=== PATIENT | male | born 1950 | race Caucasian/White ===

== ENCOUNTER 2018-02-26 08:31 | Inpatient (IN) | payer OTHER, MEDICARE ==
[~2018-02-26] VITALS: Ht 182.9 cm; Wt 79.1 kg
[~2018-02-26 08:31] MED LIST: ALBUTEROL 3 ML3 ML INH; ATORVASTATIN CA40 MG PO; CEFAZOLIN SODIUM1 GM IV; DULOXETINE HYDR60 MG PO; FOLIC ACID 1 MG PO; KEPPRA 500MG T500 MG PO; KLOR PO; LOPRESSOR 25MG25 MG PO; LOPRESSOR50 MG PO; LORAZEPAM1 MG PO; LOVENOX 4040 MG/0.4 SC; PRILOSEC 20MG C20 MG PO; Theragran Vitamins PO; VITAMIN B-150 MG PO
[2018-02-26 08:54] LABS: ABSOLUTE BASOPHIL COUNT 0 /CUMM (0.0-0.2); ABSOLUTE EOSINOPHIL COUNT 0 /CUMM (0.0-0.7); BASOPHIL % 0.3 % (0.0-2.0); MEAN CORPUSCULAR HGB 31.6 PG (27.0-31.0)
--- NOTE | 2018-02-26 08:57 | ED AMS/SEIZURE/WEAK/DIZZY ---
History of Present Illness General Chief Complaint: Seizure Stated Complaint: JOSE MARIA,FOUND ON FLOOR UNRESPONSIVE, SEIZED IN R Source: EMS Exam Limitations: unable to give history, clinical condition Vital Signs & Intake/Output Vital Signs & Intake/Output Vital Signs Date Time Temp Pulse Resp B/P B/P Pulse O2 O2 Flow FiO2 Mean Ox Delivery Rate 03/01 0321 30 03/01 0053 30 03/01 0000 97 Ventilator 30% 03/01 0000 96.6 82 20 120/70 97 Ventilator 30% 02/28 2223 30 02/28 2000 97 Ventilator 30% / 1925 30 02/28 1625 30 02/28 1600 99 Ventilator 30% 02/28 1600 99.1 95 20 150/88 99 Ventilator 30% 02/28 1409 30 02/28 1200 97 Ventilator 30% 02/28 1200 98.7 96 20 152/100 96 Ventilator 30% 02/28 1130 30 02/28 0829 30 02/28 0800 96 Ventilator 35% 02/28 0800 97.2 91 20 124/86 96 Ventilator 35% 02/28 0611 35 ED Intake and Output 03/01 0000 02/28 1200 Intake Total 1407 750 Output Total 580 275 Balance 827 475 Intake, IV 1407 750 Number 0 0 Bowel Movements Output, Urine 580 275 Patient 202 lb Weight Weight Bed scale Measurement Method Allergies Coded Allergies: bee venom protein (honey bee) (UNKNOWN 02/26/18) Reconcile Medications Atorvastatin Calcium 40 MG TABLET 1 TAB PO DAILY CHOLESTEROL (Reported) Divalproex Sodium (Divalproex Sodium ER) 500 MG TAB.ER.24H 2 TAB PO BID SEIZURES (Reported) Duloxetine HCl 60 MG CAPSULE.DR 1 CAP PO DAILY UNKNOWN (Reported) Metoprolol Tartrate 25 MG TABLET 1 TAB PO BID HEART (Reported) Triage Note: JOSE MARIA FROM HOME, PER EMS WAS FOUND UNRESPONSIVE ON FLOOR, THEN HAD SEIZURE LIKE ACTIVITY, RESOLVED WITH VERSED 10 MG IM. UNRESPONSIVE ON ARRIVAL, WITH ORAL ARIWAY IN PLACE. RESPIRATIONS IRREGULAR, BAGGED WITH 100% 02. DR. CASTILLO AT BEDSIDE FOR EVALUATION. Triage Nurses Notes Reviewed? yes HPI: Patient presents for evaluation of unresponsiveness. According to EMS the patient was last seen by his moments before their arrival. She states that he "didn't seem right" when she left for work. EMS states the patient was unresponsive upon their arrival with signs of head injury and possible left elbow dislocation/fracture. Past History Travel History Traveled to [place] past 21 day No Medical History Any Pertinent Medical History? 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 No Review of Systems Review of Systems Constitutional: Reports: see HPI. Comments Patient unable to provide Physical Exam Physical Exam General Appearance: see below Comments: Gen.: Well-nourished, well-developed, no acute respiratory distress. Head: Normocephalic, atraumatic. Eyes: Normal inspection bilaterally Ears: Normal inspection bilaterally Nose: Normal inspection Throat/mouth : Moist mucosa Neck: Supple, full range of motion, no goiter Heart: Regular rate and rhythm, no murmurs rubs or gallops Lungs: Alternating dyspnea with tachypnea Chest: Nontender Back: Normal range of motion Abdomen: Soft, nontender, nondistended, normal bowel sounds Extremities: Normal range of motion grossly, equal radial pulses, no cyanosis clubbing or edema Neurologic: Cranial nerves grossly intact, otherwise unable to assess Skin: warm and dry Psychiatric: Unable to assess Core Measures ACS in differential dx? No CVA/TIA Diagnosis No Sepsis Present: No Sepsis Focused Exam Completed? No Progress Differential Diagnosis: arrythmia, CVA/stroke, dehydration, electrolyte imbalance, intracranial Hem., intracranial mass/tumor, seizure disorder Plan of Care: Orders Procedure Date/time Status ARTERIAL BLOOD GAS (GEN) 03/01 0500 Active XRY-PORTABLE CHEST XRAY 03/01 0500 Active ICU LAB BUNDLE 03/01 0500 Active CBC WITHOUT DIFFERENTIAL 03/01 0500 Active PARTIAL THROMBOPLASTIN TIME 03/01 0430 Active Tube Feeding 02/28 D Active Heparin Drip- AFIB/FLUTTER/PE/ 02/28 2254 Active Restraint- Medical 02/28 0732 Active English, Insertion/Removal/Asses 02/28 0732 Active VENTILATOR WEANING PARAMETERS 02/28 UNK Complete VENTILATOR PARAMETERS 02/28 UNK Complete ELECTROENCEPHALOGRAM 02/28 UNK Active MISSING MEDICATION FORM 02/28 UNK Active OXYGEN 02/27 UNK Complete OXYGEN DAILY CHARGE 02/27 UNK Complete CONTINUOUS VENTILATOR 02/27 UNK Complete Current Medications Sig/Louise Start time Last Medication Dose Stop Time Status Admin Hydromorphone HCl 1 MG Q4 PRN 02/28 2150 AC 03/01 (Dilaudid) 0345 Dextrose/Water 1,000 ML Q20H 02/28 2100 AC 02/28 (D5W 1000) 03/01 1659 2059 Heparin Sodium 25,000 UNIT Q24H 02/28 2045 AC 02/28 (Porcine) 2224 (Heparin) Sodium Chloride 500 ML Ampicillin Sodium/ 3,000 MG Q6 02/27 1200 AC 02/28 Sulbactam Sodium 2341 (Unasyn) Sodium Chloride 100 ML (Normal Saline 0.9%) Lorazepam 1 MG Q2P PRN 02/27 1115 AC 02/28 (Ativan) 1642 Levetiracetam 1,000 MG Q8 02/26 2200 AC 02/28 (Keppra) 2224 N/A 1 UNIT (No Carrier) Valproate Sodium 1,000 MG BID 02/26 2100 AC 02/28 (Depacon 500MG/5ML 2100 Inj) Sodium Chloride 100 ML (Normal Saline 0.9%) Pantoprazole Sodium 40 MG DAILY 02/26 2035 AC 02/28 (Protonix) 0735 Laboratory Tests 03/01/18 0502: Sodium Pending, Potassium Pending, Chloride Pending, Carbon Dioxide Pending, Anion Gap Pending, BUN Pending, Creatinine Pending, Glucose Pending, Calcium Pending, Phosphorus Pending, Magnesium Pending, Total Bilirubin Pending, AST Pending, ALT Pending, Albumin Pending, APTT Pending, CBC w Diff Pending, WBC Pending, RBC Pending, Hgb Pending, Hct Pending, MCV Pending, MCH Pending, MCHC Pending, RDW Pending, Plt Count Pending, MPV Pending Diagnostic Imaging: Discussed w/RAD: Radiology Read, CT Scan. Radiology Impression: PATIENT: ARYA FIGUEROA PRESENT AGE: 67 PATIENT ACCOUNT NO: [id number] : 48 LOCATION: [facility] ORDERING PHYSICIAN: Cyril Castillo MD SERVICE DATE: 02/26/18 EXAM TYPE: CAT - CT CERV SPINE WO IV CONTRAST; CT FACE/SINUS WITHOUT CONT; CT HEAD WO IV CONTRAST EXAMINATION: CT HEAD, CT CERVICAL SPINE AND CT MAXILLOFACIAL BONES CLINICAL INFORMATION: Unresponsiveness. Likely postictal. Ecchymosis. COMPARISON: CT head dated 02/20/2015 TECHNIQUE: Contiguous axial CT slices with reformatted images. Total DLP: 2006.66 FINDINGS: CT HEAD: There is no CT evidence of acute intra- axial or extra-axial hemorrhage. There is no acute mass effect or midline shift. Large cyst anterior inferior aspect left middle cranial fossa with mass effect on the anteroinferior left temporal lobe consistent with arachnoid cyst. Compared to the previous examination there has been slight interval increase in the overall size of the cyst. No acute mass effect or midline shift. Cystic structure measures approximately 5.9 x 5.4 x 7 cm (series 3 image 10 and coronal image 88). Prominence of the ventricles and sulci compatible with chronic change. No acute loss of flores-white differentiation. Visualized paranasal sinuses are well aerated. Secretions and mucosal thickening noted in the posterior aspects of the nasal fossa. Visualized calvarial bones are intact. FACIAL BONES: Endotracheal tube extending into the upper aerated. Visualized nasal bones demonstrate comminuted fractures bilateral nasal bones. Acute fracture anterior aspect nasal septum. (Series 12 image 205, 217, 223 and 232). Soft tissue swelling surrounding the nasal bones. Mucosal thickening noted within the posterior aspects nasal mucosa with secretions noted in the posterior nasal cavity and nasopharyngeal region. Intact zygomatic arches noted bilaterally. Intact orbital bones. Intact maxillary bones Intact pterygoid plates. Intact sphenoid wings. Bilateral TMJ appear symmetric. Intact mandible. No acute dental fracture.. Visualized soft tissues demonstrate minor soft tissue swelling surrounding the nasal bones and periorbital region. No gross evidence of hematoma formation. Unremarkable intraorbital structures. CT CERVICAL SPINE Degenerative changes noted at multiple levels with uncovertebral hypertrophy, facet arthropathy and endplate disease. Straightening of normally seen cervical lordosis with slight reversal likely representing positional change. No evidence of acute fracture or acute subluxation appreciated. Moderate hypertrophic changes at C1-C2 level. Degenerative endplate disease, decrease intervertebral disc space, posterior disc osteophyte complexes and facet arthropathy noted at C2-C3-C7-T1 level. There is multilevel foraminal stenosis. It appears to be worse at C3-C4, C5-C6 and C6/C7 levels with probable impingement upon the exiting nerve roots. Visualized soft tissues do not demonstrate any gross evidence of acute hematoma formation. No evidence of prevertebral or paraspinal soft tissue swelling or hematoma formation. Inferior tip of the endotracheal tube is not included in the examination. Lung apices included in examination demonstrates dependent changes. IMPRESSION: 1. No acute intracranial pathology. 2. Chronic arachnoid cyst left anterior middle cranial fossa demonstrates slight interval increase. No acute mass effect. 3. Bilateral nasal bones and nasal septal fracture. Mild soft tissue swelling surrounding the nasal bones. Mucosal thickening and secretions noted in the posterior nasal cavity and nasopharynx. 4. Endotracheal tube in place. Tip is not included in examination 5. No acute osseous abnormality noted in the cervical spine. 6. Moderate to severe cervical spondylosis with foraminal stenosis. Probable impingement upon the exiting nerve roots at several levels as detailed. DICTATED BY: Ayesha Gil MD DATE/TIME DICTATED:02/26/181014 HEATER INSTALLER:TIFFANIE DATE/TIME TRANSCRIBED:1014 CONFIDENTIAL, DO NOT COPY WITHOUT APPROPRIATE AUTHORIZATION. < Electronically signed in Other Vendor System> SIGNED BY: Ayesha Gil MD 02/26/18 1041, PATIENT: ARYA FIGUEROA PRESENT AGE: 67 PATIENT ACCOUNT NO: [id number] : 48 LOCATION: [facility] ORDERING PHYSICIAN: Cyril Castillo MD SERVICE DATE: 02/26/18 EXAM TYPE: CAT - CT CHEST W IV CONTRAST EXAMINATION: CT CHEST WITH CONTRAST CLINICAL INFORMATION: Trauma. Unresponsive. Likely postictal. COMPARISON: Chest x-ray obtained earlier the same day. TECHNIQUE: Multidetector volumetric CT imaging of the chest was obtained after the administration of 95 mL of Optiray 320 intravenous contrast without immediate adverse reactions. Axial MIP volume rendering provided. Sagittal and coronal reformatted images were obtained. DLP: 1159 mGy-cm FINDINGS : BUSINESS RISK ANALYST: Endotracheal tube 6 cm above the seven. Enlarged heart. Post-CABG changes and prosthetic aortic valve. LUNGS: There is an endotracheal tube in satisfactory position. There is atelectasis or small pneumonia seen in the posterior basal bilateral lower lobes. The lungs are otherwise clear. No contusion is seen. MEDIASTINUM: The heart is enlarged. There are post-CABG changes and prosthetic aortic valve. There is no pericardial effusion. There are no enlarged lymph nodes. No pneumomediastinum is seen. PLEURA: There is no pleural effusion or pneumothorax. AXILLA: No chest wall mass or enlarged axillary lymph nodes are seen. OSSEOUS STRUCTURES: There are degenerative changes of the spine. There are median sternotomy wires. IMPRESSION: Satisfactory position of endotracheal tube. Atelectasis or small pneumonia in the dependent bilateral lower lobes. Enlarged heart. Post-CABG changes and post aortic valve replacement. DICTATED BY: Brandy Owens MD DATE/TIME DICTATED:1127 HEATER INSTALLER:TIFFANIE DATE/TIME TRANSCRIBED:02/26/181127 CONFIDENTIAL, DO NOT COPY WITHOUT APPROPRIATE AUTHORIZATION. <Electronically signed in Other Vendor System> SIGNED BY: Brandy Owens MD 02/26/18 1143 , PATIENT: ARYA FIGUEROA PRESENT AGE: 67 PATIENT ACCOUNT NO: [id number] : 48 LOCATION: [facility] ORDERING PHYSICIAN: Cyril Castillo MD SERVICE DATE: 02/26/18 EXAM TYPE: CAT - CT ABD & PELVIS W IV CONTRAST EXAMINATION: CT ABDOMEN AND PELVIS WITH CONTRAST CLINICAL INFORMATION: Trauma. Patient unresponsive. Question post ictal. Ecchymosis. COMPARISON: None TECHNIQUE: Multidetector volumetric imaging was performed of the abdomen and pelvis following IV administration of 95 mL of Optiray 320 intravenous contrast. Sagittal and coronal reformatted images were obtained on the technologist's workstation. DLP: For combined CT of the chest, abdomen and pelvis 1159 mGy-cm FINDINGS: LIVER, GALLBLADDER, AND BILIARY TREE: The liver is low in attenuation suggestive of fatty infiltration. No focal liver lesion is seen. The gallbladder is upper normal in size. No gallstones or inflammatory changes are seen. PANCREAS: Unremarkable SPLEEN: Unremarkable ADRENAL GLANDS: Unremarkable KIDNEYS AND URETERS: There is a 2 mm cyst in the right kidney. There is a 1 cm cyst in the left kidney. The kidneys are otherwise unremarkable. BLADDER: There is a English catheter in the bladder. The bladder is empty. GASTROINTESTINAL TRACT: There is evidence of mild diverticulosis. There are slightly distended fluid- filled loops of small bowel probably representing an ileus. Small and large bowel is otherwise unremarkable. The appendix is not identified. ABDOMINAL WALL: No significant hernia is appreciated. LYMPH NODES: There are no enlarged lymph nodes. No ascites is seen. No free air is seen. VASCULAR: There is evidence of atherosclerotic disease. PELVIC VISCERA: Prostate gland does not appear enlarged. OSSEOUS STRUCTURES: There is increased sclerosis of the left S5 vertebral body. There are degenerative changes of the spine. No fracture is seen. IMPRESSION: Slightly distended fluid-filled loops of small bowel probably representing an ileus. Diverticulosis. Bilateral renal cysts. Nonspecific sclerotic lesion in the left S5 vertebral body. Degenerative changes of the spine. No fracture seen. DICTATED BY: Brandy Owens MD DATE/TIME DICTATED:1120 HEATER INSTALLER:TIFFANIE DATE/TIME TRANSCRIBED:02/26/181120 CONFIDENTIAL, DO NOT COPY WITHOUT APPROPRIATE AUTHORIZATION. <Electronically signed in Other Vendor System> SIGNED BY: Brandy Owens MD 02/26/18 1142 Initial ED EKG: AFIB, RBBB Prior EKG: unchanged Comments: 02/26/2018 8:55:51 AM I intubated Arya based on his inconsistent respiratory Drive and evidence of facial trauma raising the suspicion of intracranial injury. Endotracheal tube seen passing through the cords on glide scope, good color change on CO2 colorimetric detector. 02/26/2018 10:37:49 AM patient's blood pressure has been severely elevated, labetalol administered. I've just been notified that the patient is fighting the vent so I have ordered Ativan 2 mg along with morphine 4 mg for the possibility of discomfort/pain. Patient has been observed to reach for the endotracheal tube on occasion. In addition I was notified by the patient's nurse that per Dr. Garcia, this patient is seen by Dr. Lewis, who will evaluate the patient shortly. 02/26/2018 10:50:41 AM patient has been placed in the head of bed at 30 him and his elevated hypertension and the concern for intracranial pathology. English catheter has been placed and patient is producing urine. Oxygen saturations are normal. 02/26/2018 11:38:15 AM patient's case discussed with Dr. Lewis who recommends a propofol drip primarily for the possibility of ongoing seizures. This will also help with compliance on the ventilator. Departure Departure Disposition: STILL A PATIENT Condition: Stable Clinical Impression Primary Impression: Seizure Referrals: Earl Bender MD Departure Forms: Customer Survey General Discharge Information Admission Note Spoke With: Debbie ANDERSON,Kb Solano Documentation of Exam: Documentation of any treatments & extenuating circumstances including Concerns Regarding Discharge (functional status, medication knowledge or non-compliance, living conditions, etc.) that warrant an admission rather than observation: Patient presented with an unstable respirations and airway requiring intubation. The patient is likely suffering from a prolonged postictal state placing him at high risk of respiratory failure aspiration and mortality. Given the need for intubation to protect patient's airway and respiratory effort, the patient requires ICU level care with close monitoring of vital signs and pulse oximetry. Neurology consultation to be obtained patient's medications reviewed and optimized for seizure control. Patient should be weaned off the ventilator as tolerated. EEG should be obtained to assess for seizure activity of the brain. I feel this patient will require a multiple day hospitalization. Critical Care Note Critical Care Note Critical Care Time: 75-104 min
[2018-02-26 09:03] LABS: ABSOLUTE LYMPH COUNT 3.3 /CUMM (1.2-3.4); ABSOLUTE MONOCYTE COUNT 1.6 /CUMM (0.10-0.60); EOSINOPHIL % 0.3 % (0-5); GRANULOCYTE % 49.9 % (42.2-75.2); HEMATOCRIT 46.7 % (42-52); MEAN CORPUSCULAR HGB CONC 34.9 G/DL (33.0-37.0); MEAN CORPUSCULAR VOLUME 90.7 FL (80.0-94.0); MEAN PLATELET VOLUME 10.3 FL (7.4-10.4); RED BLOOD CELL CT 5.15 /CUMM (4.70-6.10)
[2018-02-26 09:08] LABS: PTT 28 SEC (25-37)
[2018-02-26] MEDS ORDERED: ATORVASTATIN CA40 M1 PO (09:39)
[2018-02-26] MEDS ORDERED: DIVALPROEX SOD500 M3 PO (09:39)
[2018-02-26] MEDS ORDERED: METOPROLOL TART25 M1 PO (09:39)
[2018-02-26] MEDS ORDERED: DULOXETINE HCL60 MG PO (09:40)
--- NOTE | 2018-02-26 10:41 | CT SCAN REPORT ---
EXAMINATION: CT HEAD, CT CERVICAL SPINE AND CT MAXILLOFACIAL BONES CLINICAL INFORMATION: Unresponsiveness. Likely postictal. Ecchymosis. COMPARISON: CT head dated 02/20/2015 TECHNIQUE: Contiguous axial CT slices with reformatted images. Total DLP: 2006.66 FINDINGS: CT HEAD: There is no CT evidence of acute intra-axial or extra-axial hemorrhage. There is no acute mass effect or midline shift. Large cyst anterior inferior aspect left middle cranial fossa with mass effect on the anteroinferior left temporal lobe consistent with arachnoid cyst. Compared to the previous examination there has been slight interval increase in the overall size of the cyst. No acute mass effect or midline shift. Cystic structure measures approximately 5.9 x 5.4 x 7 cm (series 3 image 10 and coronal image 88). Prominence of the ventricles and sulci compatible with chronic change. No acute loss of flores-white differentiation. Visualized paranasal sinuses are well aerated. Secretions and mucosal thickening noted in the posterior aspects of the nasal fossa. Visualized calvarial bones are intact. FACIAL BONES: Endotracheal tube extending into the upper aerated. Visualized nasal bones demonstrate comminuted fractures bilateral nasal bones. Acute fracture anterior aspect nasal septum. (Series 12 image 205, 217, 223 and 232). Soft tissue swelling surrounding the nasal bones. Mucosal thickening noted within the posterior aspects nasal mucosa with secretions noted in the posterior nasal cavity and nasopharyngeal region. Intact zygomatic arches noted bilaterally. Intact orbital bones. Intact maxillary bones Intact pterygoid plates. Intact sphenoid wings. Bilateral TMJ appear symmetric. Intact mandible. No acute dental fracture.. Visualized soft tissues demonstrate minor soft tissue swelling surrounding the nasal bones and periorbital region. No gross evidence of hematoma formation. Unremarkable intraorbital structures. CT CERVICAL SPINE Degenerative changes noted at multiple levels with uncovertebral hypertrophy, facet arthropathy and endplate disease. Straightening of normally seen cervical lordosis with slight reversal likely representing positional change. No evidence of acute fracture or acute subluxation appreciated. Moderate hypertrophic changes at C1-C2 level. Degenerative endplate disease, decrease intervertebral disc space, posterior disc osteophyte complexes and facet arthropathy noted at C2-C3-C7-T1 level. There is multilevel foraminal stenosis. It appears to be worse at C3-C4, C5-C6 and C6/C7 levels with probable impingement upon the exiting nerve roots. Visualized soft tissues do not demonstrate any gross evidence of acute hematoma formation. No evidence of prevertebral or paraspinal soft tissue swelling or hematoma formation. Inferior tip of the endotracheal tube is not included in the examination. Lung apices included in examination demonstrates dependent changes. IMPRESSION: 1. No acute intracranial pathology. 2. Chronic arachnoid cyst left anterior middle cranial fossa demonstrates slight interval increase. No acute mass effect. 3. Bilateral nasal bones and nasal septal fracture. Mild soft tissue swelling surrounding the nasal bones. Mucosal thickening and secretions noted in the posterior nasal cavity and nasopharynx. 4. Endotracheal tube in place. Tip is not included in examination 5. No acute osseous abnormality noted in the cervical spine. 6. Moderate to severe cervical spondylosis with foraminal stenosis. Probable impingement upon the exiting nerve roots at several levels as detailed.
--- NOTE | 2018-02-26 11:38 | RADIOLOGY REPORT ---
EXAMINATION: XR PORTABLE CHEST CLINICAL INFORMATION: Previous chest x-ray February 2015 COMPARISON: Previous chest CT obtained the same day and chest x-ray February 2015 TECHNIQUE: Portable frontal view of the chest was obtained. FINDINGS: There is an endotracheal tube with tip 6 cm above the seven. The cardiac silhouette is enlarged. There are median sternotomy wires and prosthetic aortic valve. The lungs are clear. There is no pleural effusion or pneumothorax. Bony structures are normal. IMPRESSION: Satisfactory position of endotracheal tube with tip 6 m above the seven. Enlarged cardiac silhouette and postoperative changes.
--- NOTE | 2018-02-26 11:41 | RADIOLOGY REPORT ---
EXAMINATION: XR ELBOW, LEFT CLINICAL INFORMATION: Left elbow deformity. Evaluate for fracture. COMPARISON: None TECHNIQUE: AP, lateral, and oblique views of the left elbow. FINDINGS: There is an acute transverse transcondylar distal humerus fracture. There is slight anterior displacement of the condyles with respect to the more proximal humeral shaft. There is old posttraumatic or postoperative deformity the proximal radius with absence of the radial head.. There is arthritis at the humeral ulnar joint. There is a joint effusion and overlying soft tissue swelling. IMPRESSION: Acute displaced transcondylar fracture of the distal humerus, significant joint effusion and soft tissue swelling. Probable old trauma or postoperative change to the proximal radius with absence of the radial head. 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
--- NOTE | 2018-02-26 11:42 | CT SCAN REPORT ---
EXAMINATION: CT ABDOMEN AND PELVIS WITH CONTRAST CLINICAL INFORMATION: Trauma. Patient unresponsive. Question post ictal. Ecchymosis. COMPARISON: None TECHNIQUE: Multidetector volumetric imaging was performed of the abdomen and pelvis following IV administration of 95 mL of Optiray 320 intravenous contrast. Sagittal and coronal reformatted images were obtained on the technologist's workstation. DLP: For combined CT of the chest, abdomen and pelvis 1159 mGy-cm FINDINGS: LIVER, GALLBLADDER, AND BILIARY TREE: The liver is low in attenuation suggestive of fatty infiltration. No focal liver lesion is seen. The gallbladder is upper normal in size. No gallstones or inflammatory changes are seen. PANCREAS: Unremarkable SPLEEN: Unremarkable ADRENAL GLANDS: Unremarkable KIDNEYS AND URETERS: There is a 2 mm cyst in the right kidney. There is a 1 cm cyst in the left kidney. The kidneys are otherwise unremarkable. BLADDER: There is a English catheter in the bladder. The bladder is empty. GASTROINTESTINAL TRACT: There is evidence of mild diverticulosis. There are slightly distended fluid-filled loops of small bowel probably representing an ileus. Small and large bowel is otherwise unremarkable. The appendix is not identified. ABDOMINAL WALL: No significant hernia is appreciated. LYMPH NODES: There are no enlarged lymph nodes. No ascites is seen. No free air is seen. VASCULAR: There is evidence of atherosclerotic disease. PELVIC VISCERA: Prostate gland does not appear enlarged. OSSEOUS STRUCTURES: There is increased sclerosis of the left S5 vertebral body. There are degenerative changes of the spine. No fracture is seen. IMPRESSION: Slightly distended fluid-filled loops of small bowel probably representing an ileus. Diverticulosis. Bilateral renal cysts. Nonspecific sclerotic lesion in the left S5 vertebral body. Degenerative changes of the spine. No fracture seen.
--- NOTE | 2018-02-26 11:43 | CT SCAN REPORT ---
EXAMINATION: CT CHEST WITH CONTRAST CLINICAL INFORMATION: Trauma. Unresponsive. Likely postictal. COMPARISON: Chest x-ray obtained earlier the same day. TECHNIQUE: Multidetector volumetric CT imaging of the chest was obtained after the administration of 95 mL of Optiray 320 intravenous contrast without immediate adverse reactions. Axial MIP volume rendering provided. Sagittal and coronal reformatted images were obtained. DLP: 1159 mGy-cm FINDINGS: INTERIOR DESIGN PROFESSIONAL: Endotracheal tube 6 cm above the seven. Enlarged heart. Post-CABG changes and prosthetic aortic valve. LUNGS: There is an endotracheal tube in satisfactory position. There is atelectasis or small pneumonia seen in the posterior basal bilateral lower lobes. The lungs are otherwise clear. No contusion is seen. MEDIASTINUM: The heart is enlarged. There are post-CABG changes and prosthetic aortic valve. There is no pericardial effusion. There are no enlarged lymph nodes. No pneumomediastinum is seen. PLEURA: There is no pleural effusion or pneumothorax. AXILLA: No chest wall mass or enlarged axillary lymph nodes are seen. OSSEOUS STRUCTURES: There are degenerative changes of the spine. There are median sternotomy wires. IMPRESSION: Satisfactory position of endotracheal tube. Atelectasis or small pneumonia in the dependent bilateral lower lobes. Enlarged heart. Post-CABG changes and post aortic valve replacement.
--- NOTE | 2018-02-26 13:58 | History & Physical ---
Jessica ANDERSON,[facility] 02/26/18 0907: General Information and [facility] MD Statement: I have seen and personally examined ARYA FIGUEROA and documented this H&P. The patient is a 67 year old M who presented with a patient stated chief complaint of [unresponsiveness]. Source of Information: family Exam Limitations: unable to give history, clinical condition History of Present Illness: 67 yo M with PMH of seizures, hypertension, hyperlipidemia, CAD s/p CABG and bovine aortic valve replacement in 2013, Hodgkins lymphoma was brought to the ED after he was found to be unresponsiveness earlier today. Most of the history has been obtained from the over telephone. The states that she went to work earlier this morning around 6am. At that time, the patient seemed a little off to her. She did some 'routine tests' which she uses to screen him for seizures but he 'passed' them, though he still seemed funny to her. He was found around 7.30am by EMS. En route to the hospital, the patient had an episode of seizure for which he was given Midazolam by EMS. The patient is reported to be in his usual state of health until yesterday. Last the patient had a work related accident where he fell and landed on his face resulting in injury to his nose and back. He did not seek medical attention though had persistent complains of neck and nose pain. His last episode of seizure was in August where he a 'mild seizure' and was seen at [facility] at the time. He follows a neurologist Dr Lima Rinaldi at [facility]. He has been on Divalproex which he is highly compliant with. He followed with his neurologist last month and states everything was normal. He smokes marijuana and drinks alcohol. Had 4-5 beers and a shot of tequila yesterday. Patient was last admitted to [facility] in 2014 and he was seen for a similar episode requiring intubation. ROS is negative except for exertional shortness of breath per . 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 Allergies/Medications Allergies: Coded Allergies: bee venom protein (honey bee) (UNKNOWN 02/26/18) Home Med list Atorvastatin Calcium 40 MG TABLET 1 TAB PO DAILY CHOLESTEROL (Reported) Divalproex Sodium (Divalproex Sodium ER) 500 MG TAB.ER.24H 2 TAB PO BID SEIZURES (Reported) Duloxetine HCl 60 MG CAPSULE. 1 CAP PO DAILY UNKNOWN (Reported) Metoprolol Tartrate 25 MG TABLET 1 TAB PO BID HEART (Reported) Past History Travel History Traveled to [place] past 21 day No Medical History Cardiovascular: hypertension, hyperlipidemia Respiratory: NONE Renal: nephrolithiasis Musculoskeletal: NEUROPATHY FEET & HANDS Cancer(s): hodgkins lymphoma History of MRSA: No History of VRE: No History of CDIFF: No Surgical History Surgical History: CABG, BACK SURGERY, BILATERAL THUMB REPLACMENT AVR Past Family/Social History Psychosocial History Services at Home: None ETOH Use: 5 Review of Systems Review of Systems Constitutional: Reports: no symptoms. Respiratory: Reports: short of breath. Exam & Diagnostic Data Last 24 Hrs of Vital Signs/I&O Vital Signs Date Time Temp Pulse Resp B/P B/P Pulse O2 O2 Flow FiO2 Mean Ox Delivery Rate 02/26 1340 84 20 145/113 100 Ventilator 100% 02/26 1319 97.8 93 18 140/104 100 02/26 1222 88 20 137/102 99 Ventilator 5.0L 02/26 1024 79 164/128 02/26 1004 201/148 02/26 0953 82 20 201/148 95 Ventilator 02/26 0913 97.9 92 20 196/116 99 02/26 0909 100 02/26 0900 104 20 213/136 02/26 0839 72 14 182/95 80 Nasal Cannula Intake & Output 02/26 1600 02/26 0800 02/26 0000 Intake Total 50 Output Total Balance 50 Intake, IV 50 Patient 250 lb Weight Weight Estimated Measurement Method Physical Exam General Appearance sedated, intubated Skin No Rashes, No Breakdown Skin Temp/Moisture Exam: Cool/Dry (lower extremities) Sepsis Skin Exam (color): Normal for Ethnicity HEENT PERRLA, miotic pupils but reactive, periorbital ecchymosis and abrasion on nose Cardiovascular Normal S1, Normal S2, No Murmurs Lungs Normal Air Movement Abdomen Soft, No Tenderness Extremities No Edema, Normal Pulses, left arm splinted Last 24 Hrs of Labs/Kody: Laboratory Tests 02/26/18 1206: Urine Opiates Screen 501, Methadone Screen 64, Barbiturate Screen < 60, Ur Phencyclidine Scrn < 6.00, Amphetamines Screen < 100, U Benzodiazepines Scrn > 800 H, Urine Cocaine Screen > 1000 H, Urine Cannabis Screen 77.80 H, Urine Color YEL, Urine Clarity HAZY H, Urine pH 6.0, Ur Specific [place] 1.025, Urine Protein 30 H, Urine Ketones NEG, Urine Nitrite NEG, Urine Bilirubin NEG, Urine Urobilinogen 0.2, Ur Leukocyte Esterase NEG, Ur Microscopic SEDIMENT EXAMINED, Urine RBC 15-25 H, Urine WBC 1-3 H, Urine Bacteria FEW H, Hyaline Casts 1-3 H, Urine Hemoglobin MOD H, Urine Glucose NEG 02/26/18 1118: pH 7.34 L, pCO2 37, pO2 295 H, HCO3 19 L, ABG O2 Sat (Measured) 98.0, P-50 ( Temp Corrected) N, Carboxyhemoglobin 0.3 L, O2 Concentration % 100%, Temperature 97.9, Respiration Rate 20, O2 Delivery Method VENT, Vent Mode VC-AC, Expiratory Pressure 5, Tidal Volume 500, Phlebotomy Draw Site RIGHT RADIAL 02/26/18 1020: Anion Gap 13, Estimated GFR 43 L, BUN/Creatinine Ratio 21.9, Glucose 117 H, Calcium 9.0, Total Bilirubin 1.1, AST 44, ALT 42, Alkaline Phosphatase 62, Troponin I < 0.01, Total Protein 7.4, Albumin 4.0, Globulin 3.4, Albumin/ Globulin Ratio 1.2, Phenytoin < 3.0 L, Valproic Acid 59.8, Carbamazepine < 3.0 L, Serum Alcohol < 10.0 02/26/18 0844: PT 12.0, INR 1.10, APTT 28, CBC w Diff NO MAN DIFF REQ, RBC 5.15, MCV 90.7, MCH 31.6 H, MCHC 34.9, RDW 14.0, MPV 10.3, Gran % 49.9, Lymphocytes % 33.1, Monocytes % 16.4 H, Eosinophils % 0.3, Basophils % 0.3, Absolute Granulocytes 5.0, Absolute Lymphocytes 3.3, Absolute Monocytes 1.6 H, Absolute Eosinophils 0 , Absolute Basophils 0 Assessment/Plan Assessment: 67 yo M with PMH of seizures, hypertension, hyperlipidemia, CABG and bovine aortic valve replacement in 2013, Hodgkins lymphoma was brought to the ED after he was found to be unresponsiveness earlier today. On admission to the ER, his EKG showed Atrial fibrilliation. He transiently converted to NSR but reverted back to atrial fibrilliation on arrival to the ICU. Assessment: 1. Seizure with possible status epilepticus 2. Acute Respiratory distress requiring intubation 3. Possible PEPPER - Last Cr is in 2014 4. Atrial Fibrilliation with controlled VR 5. Acute displaced transcondylar fracture of the distal left humerus 6. Bilateral nasal bones and nasal septal fracture 7. Chronic arachnoid cyst in left anterior middle cranial fossa which shows slight interval increase. 8. Moderate to severe cervical spondylosis with foraminal stenosis. Plan: * Admit patient to ICU * Continue Propofol drip for sedation and possible status epilepticus * IV Ativan 2mg prn as needed for agitated. * Continue IV valproic acid home dose * Neurology consult. * EEG to assess for seizure * Obtain old records from his neurologist * Ortho consult for humerus fracture. * Keep left arm in splint for now. * IVF with NS @50ml/hr for PEPPER * Cardiology consult for atrial fibrilliation. * Diet: NPO. Can be assessed for tube feeds. * DVT Prophylaxis: SC Heparin * Code: Full Code As Ranked By This Provider Problem List: 1. Respiratory failure Core Measures/Misc (04/30) Acute Coronary Syndrome ACS Diagnosis: No Congestive Heart Failure Congestive Heart Failure Diagnosis No Cerebrovascular Accident CVA/TIA Diagnosis: No VTE (View Protocol) VTE Risk Factors Age>40 No Mechanical VTE Prophylaxis d/t N/A MechProphylax Ordered No VTE Pharm Prophylaxis d/t NA PharmProphylax ordered Sepsis (View protocol) Sepsis Present: No If YES complete Sepsis Event Note If YES complete Sepsis Event Note Debbie ANDERSON,[facility] 02/26/18 1900: Core Measures/Misc (04/30) Sepsis (View protocol) If YES complete Sepsis Event Note If YES complete Sepsis Event Note Attending MD Review Statement Attending Statement Attending MD Statement: examined this patient, discuss w/resident/PA/WATERWORKS SUPERVISOR, agreed w/resident/PA/WATERWORKS SUPERVISOR, discussed with family, reviewed EMR data (avail), discussed with nursing, discussed with case mgmt, reviewed images, amended to note Attending Assessment/Plan: seen and examined independently in ed Discussed with Ed attending and lead security officer 67-year-old male admitted after found unresponsive History is obtained from medical records since at present patient on to prevent and is comatose Per medical records patient had left to work early in the morning and was found at 7:30 AM by the EMS En route to hospital he had an apparent seizure Followed at [facility] for seizure disorder and has been on daily valproex record indicate that he is compliant Exam Dolls absent Pupils small reactive Cornea intack On propofol drip and sedated No sig response to painful stimuli but pt has had ativan, veccuronium and propofol and will be reassesed This is a 67-year-old gentleman with history of hypertension, hyperlipidemia, CABG, previous bovine aortic valve replacement, previous history of Hodgkin's lymphoma in the late 90s with previous chemoradiation therapy leading to significant neuropathy, significant medical marijuana usage, alcohol use on and off, multiple surgeries and chronic pain, previous seizure disorder started in 2014 and since then followed by [facility] (compliant) comes here with * Significant seizure activity (apparently witnessed this am) rule out status now on propofol. 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 May have aspiration pna as well as he was a difficult intubation * Significant alcohol use by history with probable dts, Marijuana use now with cocaine in the urine (level high), * Gentleman with heart disease with previous CABG and aortic valve replacement with bioprosthetic valve with previous arrythmia, now seems like in afib with controlled ventricular response (fall, nasal fracture with possible intractable seizure with cocaine positive and hence not a candidate for anticoag * Previous history of nephrolithiasis, now with pepper * Now sig delirium on and off requiring ativan now on propofol * Nasal fracture and displaced transcondylar fracture of distal left humerus * 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 with no sig spine injury REC Admit to icu plan as noted above Cont mech vent Cont propofol and use ativan as he has cocaine on board Avoid betablocker or labetelol due to cocaine intox Rule out mi, echo, cardio consult Gentle ivf with d5 normal saline Check glucose regularly PPI iv Sub cut heparin See neuro note EEG Prog poor will follow closely Pt is critically ill tts 50 mins
--- NOTE | 2018-02-26 15:53 | Cons- Neurology ---
See Addendum General Information and HPI Consulting Request Date of Consult: 02/26/18 Requested By: Debbie ANDERSON,[facility] History of Present Illness: 67-year-old male admitted after found unresponsive History is obtained from medical records since at present patient on to prevent and is comatose Per medical records patient had left to work early in the morning and was found at 7:30 AM by the EMS En route to hospital he had an apparent seizure Followed at [facility] for seizure disorder and has been on dye valproex record indicate that he is compliant Allergies/Medications Allergies: Coded Allergies: bee venom protein (honey bee) (UNKNOWN 02/26/18) Home Med List: Atorvastatin Calcium 40 MG TABLET 1 TAB PO DAILY CHOLESTEROL (Reported) Divalproex Sodium (Divalproex Sodium ER) 500 MG TAB.ER.24H 2 TAB PO BID SEIZURES (Reported) Duloxetine HCl 60 MG CAPSULE.DR 1 CAP PO DAILY UNKNOWN (Reported) Metoprolol Tartrate 25 MG TABLET 1 TAB PO BID HEART (Reported) Current Medications: Current Medications Sig/Louise Start time Last Medication Dose Route Stop Time Status Admin Etomidate 20 MG ONCE ONE 02/26 1115 DC 02/26 IV 02/26 1116 0850 Fentanyl Citrate 50 ML ONCE ONE 02/26 1445 DC 02/26 IV 02/26 1446 1511 Fentanyl Citrate 0 .STK-MED ONE 02/26 1442 DC .ROUTE Heparin Sodium 5,000 UNIT Q8 02/27 0600 AC (Porcine) SC Hydromorphone HCl 1 MG ONCE ONE 02/26 1115 DC IV 02/26 1116 Labetalol HCl 0 .STK-MED ONE 02/26 1001 DC IV Labetalol HCl 10 MG ONCE ONE 02/26 1000 DC / IV 02/26 1001 1004 Lorazepam 2 MG ONE ONE 02/26 1445 DC 02/26 IV 02/26 1446 1511 Lorazepam 0 .STK-MED ONE 02/26 1438 DC .ROUTE Lorazepam 1 MG ONCE ONE 02/26 1115 DC / IV 02/26 1116 0850 Lorazepam 2 MG ONE ONE 02/26 1045 DC 02/26 IV 02/26 1046 1050 Lorazepam 0 .STK-MED ONE 02/26 1038 DC .ROUTE Lorazepam 0 .STK-MED ONE 02/26 0904 DC .ROUTE Lorazepam 1 MG ONCE ONE 02/26 0900 DC 02/26 IV 02/26 0901 0905 Midazolam HCl 5 MG ONCE ONE 02/26 1115 DC / IV 02/26 1116 1117 Morphine Sulfate 4 MG ONCE ONE 02/26 1045 DC / IV 02/26 1046 1050 Morphine Sulfate 0 .STK-MED ONE 02/26 1038 DC .ROUTE Non-Formulary 0 SEE ADMIN CRITERIA 02/26 1145 CAN Medication ANY Propofol 1,000 MG Q12H 02/26 1145 AC 02/26 N/A 1 UNIT IV 1225 Sodium Chloride 500 ML BOLUS ONE 02/26 1530 AC IV 02/26 1629 Sodium Chloride 1,000 ML ONCE ONE 02/26 1400 AC 02/26 IV 02/27 0959 1523 Succinylcholine 100 MG ONCE ONE 02/26 1115 DC 02/26 Chloride IV 02/26 1116 0900 Vecuronium [place] 10 MG ONCE ONE 02/26 1115 DC 02/26 IV 02/26 1116 0918 Past History Travel History Traveled to [facility] past 21 day No Medical History Cardiovascular: hypertension, hyperlipidemia Respiratory: NONE Renal: nephrolithiasis Musculoskeletal: NEUROPATHY FEET & HANDS Cancer(s): hodgkins lymphoma Surgical History Surgical History: CABG, BACK SURGERY, BILATERAL THUMB REPLACMENT AVR Psychosocial History Services at Home: None ETOH Use: 5 Exam & Diagnostic Data Vital Signs and I&O Vital Signs Date Time Temp Pulse Resp B/P B/P Pulse O2 O2 Flow FiO2 Mean Ox Delivery Rate 02/26 1518 87 20 80/54 97 02/26 1445 78 94/64 02/26 1434 50 02/26 1430 91 137/88 02/26 1340 84 20 145/113 100 Ventilator 100% 02/26 1319 97.8 93 18 140/104 100 02/26 1222 88 20 137/102 99 Ventilator 5.0L 02/26 1024 79 164/128 02/26 1004 201/148 02/26 0953 82 20 201/148 95 Ventilator 02/26 0913 97.9 92 20 196/116 99 02/26 0909 100 02/26 0900 104 20 213/136 02/26 0839 72 14 182/95 80 Nasal Cannula Intake & Output 02/26 1600 02/26 0800 02/26 0000 Intake Total 50 Output Total Balance 50 Intake, IV 50 Patient 250 lb Weight Weight Estimated Measurement Method Last 48 Hours of Lab Results: Laboratory Tests 02/26 02/26 1206 1118 Blood Gas pH (7.35 - 7.45 PH) 7.34 L pCO2 (35 - 45 TORR) 37 pO2 (80 - 100 TORR) 295 H HCO3 (21 - 28 MEQ/L) 19 L ABG O2 Sat (Measured) (>96.0 %) 98.0 P-50 (Temp Corrected) N Carboxyhemoglobin (1.5 - 5.0 %) 0.3 L O2 Concentration % 100% Temperature (97.0 - 100.0 FARH) 97.9 Respiration Rate (BPM) 20 O2 Delivery Method VENT Vent Mode VC-AC Expiratory Pressure (CMH2O/P) 5 Tidal Volume (CC) 500 Miscellaneous Phlebotomy Draw Site RIGHT RADIAL Toxicology Urine Opiates Screen (>2000 NG/ML) 501 Methadone Screen (>300 NG/ML) 64 Barbiturate Screen (>200 NG/ML) < 60 Ur Phencyclidine Scrn (>25 NG/ML) < 6.00 Amphetamines Screen (>1000 NG/ML) < 100 U Benzodiazepines Scrn (>200 NG/ML) > 800 H Urine Cocaine Screen (>300 NG/ML) > 1000 H Urine Cannabis Screen (>50 NG/ML) 77.80 H Urines Urine Color (YEL,AMB,STR) YEL Urine Clarity (CLEAR) HAZY H Urine pH (5.0 - 8.0) 6.0 Ur Specific [place] (1.001 - 1.035) 1.025 Urine Protein (NEG,<30 MG/DL) 30 H Urine Ketones (NEG) NEG Urine Nitrite (NEG) NEG Urine Bilirubin (NEG) NEG Urine Urobilinogen (0.1 - 1.0 EU/dl) 0.2 Ur Leukocyte Esterase (NEG) NEG Ur Microscopic SEDIMENT EXAMINED Urine RBC (0 - 5 /HPF) 15-25 H Urine WBC (0 - 2 /HPF) 1-3 H Urine Bacteria (NEG/NONE) FEW H Hyaline Casts (0/LPF) 1-3 H Urine Hemoglobin (NEG) MOD H Urine Glucose (N MG/DL) NEG 02/26 02/26 1020 0844 Chemistry Sodium (137 - 145 mmol/L) 145 Potassium (3.5 - 5.1 mmol/L) 4.9 Chloride (98 - 107 mmol/L) 109 H Carbon Dioxide (22 - 30 mmol/L) 23 Anion Gap (5 - 16) 13 BUN (9 - 20 mg/dL) 35 H Creatinine (0.7 - 1.2 mg/dL) 1.6 H Estimated GFR (>60 ml/min) 43 L BUN/Creatinine Ratio (7 - 25 %) 21.9 Glucose (65 - 99 mg/dL) 117 H Calcium (8.4 - 10.2 mg/dL) 9.0 Total Bilirubin (0.2 - 1.3 mg/dL) 1.1 AST (17 - 59 U/L) 44 ALT (21 - 72 U/L) 42 Alkaline Phosphatase (< 127 U/L) 62 Troponin I (<0.11 ng/ml) < 0.01 Total Protein (6.3 - 8.2 g/dL) 7.4 Albumin (3.5 - 5.0 g/dL) 4.0 Globulin (1.9 - 4.2 gm/dL) 3.4 Albumin/Globulin Ratio (1.1 - 2.2 %) 1.2 Coagulation PT (9.4 - 12.5 SEC) 12.0 INR (0.90 - 1.17) 1.10 APTT (25 - 37 SEC) 28 Hematology CBC w Diff NO MAN DIFF REQ WBC (4.8 - 10.8 /CUMM) 10.0 RBC (4.70 - 6.10 /CUMM) 5.15 Hgb (14.0 - 18.0 G/DL) 16.3 Hct (42 - 52 %) 46.7 MCV (80.0 - 94.0 FL) 90.7 MCH (27.0 - 31.0 PG) 31.6 H MCHC (33.0 - 37.0 G/DL) 34.9 RDW (11.5 - 14.5 %) 14.0 Plt Count (130 - 400 /CUMM) MPV (7.4 - 10.4 FL) 10.3 Gran % (42.2 - 75.2 %) 49.9 Lymphocytes % (20.5 - 51.1 %) 33.1 Monocytes % (1.7 - 9.3 %) 16.4 H Eosinophils % (0 - 5 %) 0.3 Basophils % (0.0 - 2.0 %) 0.3 Absolute Granulocytes (1.4 - 6.5 /CUMM) 5.0 Absolute Lymphocytes (1.2 - 3.4 /CUMM) 3.3 Absolute Monocytes (0.10 - 0.60 /CUMM) 1.6 H Absolute Eosinophils (0.0 - 0.7 /CUMM) 0 Absolute Basophils (0.0 - 0.2 /CUMM) 0 Toxicology Phenytoin (10.0 - 20.0 ug/mL) < 3.0 L Valproic Acid (50 - 120 ug/mL) 59.8 Carbamazepine (4.0 - 12.0 ug/mL) < 3.0 L Serum Alcohol (<10 MG/DL) < 10.0 Imaging/Other Studies: CT head/neck/face IMPRESSION: 1. No acute intracranial pathology. 2. Chronic arachnoid cyst left anterior middle cranial fossa demonstrates slight interval increase. No acute mass effect. 3. Bilateral nasal bones and nasal septal fracture. Mild soft tissue swelling surrounding the nasal bones. Mucosal thickening and secretions noted in the posterior nasal cavity and nasopharynx. 4. Endotracheal tube in place. Tip is not included in examination 5. No acute osseous abnormality noted in the cervical spine. 6. Moderate to severe cervical spondylosis with foraminal stenosis. Probable impingement upon the exiting nerve roots at several levels as detailed. Assessment/Plan Assessment: Witnessed seizure lab data indicates he is compliantwith valproate Recommendations: load levetiracetam with 2000 mg, then 1000 every 8 hours continue valproate IV, same dose as prescribed PO EEG today, and tomorrow Consult Acknowledgment - Thank you for your consult request.
[2018-02-26 16:00] VITALS: BP 98/0
--- NOTE | 2018-02-26 18:45 | ELECTROENCEPHALOGRAM REPORT ---
Electroencephalogram Report Electroencephalogram Results Date of service: 02/26/18 Attending MD: Debbie ANDERSON,[employer] Attacher: Lisa Soto EEG Number: [id number] Test Utilizes: 10-20 system, 21 lead 18 channel digital recording Pertinent Hx/Physical/Neuro Findings/Clin Diagnosis: Seizure disorder Inpatient Medications: Current Medications Sig/Louise Start time Last Medication Dose Route Stop Time Status Admin Dextrose 25 GM ONCE ONE 02/26 1645 DC 02/26 IV 02/26 1646 1651 Dextrose/Sodium 1,000 ML Q20H 02/26 1715 AC 07/16 Chloride IV 02/27 1314 1805 Etomidate 20 MG ONCE ONE 02/26 1115 DC 02/26 IV 02/26 1116 0850 Fentanyl Citrate 50 ML ONCE ONE 02/26 1445 DC 02/26 IV 02/26 1446 1511 Fentanyl Citrate 0 .STK-MED ONE 02/26 1442 DC .ROUTE Heparin Sodium 5,000 UNIT Q8 02/27 0600 AC (Porcine) SC Hydromorphone HCl 1 MG ONCE ONE 02/26 1115 DC IV 02/26 1116 Labetalol HCl 0 .STK-MED ONE 02/26 1001 DC IV Labetalol HCl 10 MG ONCE ONE 02/26 1000 DC 02/26 IV 02/26 1001 1004 Levetiracetam 1,000 MG Q8 02/26 2200 AC N/A 1 UNIT IV Levetiracetam 1,000 MG Q1H 02/26 1645 DC 02/26 N/A 1 UNIT IV 02/26 1814 1804 Levetiracetam 2,000 MG ONCE ONE 02/26 1615 CAN IV 02/26 1616 Lorazepam 2 MG ONE ONE 02/26 1445 DC 07/ IV / 1446 1511 Lorazepam 0 .STK-MED ONE 02/26 1438 DC .ROUTE Lorazepam 1 MG ONCE ONE 02/26 1115 DC / IV 02/26 1116 0850 Lorazepam 2 MG ONE ONE 02/26 1045 DC / IV / 1046 1050 Lorazepam 0 .STK-MED ONE 02/26 1038 DC .ROUTE Lorazepam 0 .STK-MED ONE 02/26 0904 DC .ROUTE Lorazepam 1 MG ONCE ONE 02/26 0900 DC 02/26 IV 02/26 0901 0905 Midazolam HCl 5 MG ONCE ONE 02/26 1115 DC 02/26 IV 02/26 1116 1117 Morphine Sulfate 4 MG ONCE ONE 02/26 1045 DC 02/26 IV 02/26 1046 1050 Morphine Sulfate 0 .STK-MED ONE 02/26 1038 DC .ROUTE Non-Formulary 0 SEE ADMIN CRITERIA 02/26 1145 CAN Medication ANY Propofol 1,000 MG Q12H 02/26 1145 AC 02/26 N/A 1 UNIT IV 1225 Sodium Chloride 1,000 ML BOLUS ONE 02/26 1745 AC 02/26 IV 02/26 1944 1805 Sodium Chloride 500 ML BOLUS ONE 02/26 1530 DC IV 02/26 1629 Sodium Chloride 1,000 ML ONCE ONE 02/26 1400 DC 02/26 IV 02/27 0959 1523 Succinylcholine 100 MG ONCE ONE 02/26 1115 DC 02/26 Chloride IV 02/26 1116 0900 Valproate Sodium 1,000 MG BID 02/26 2100 CAN IV Valproate Sodium 1,000 MG BID 02/26 2100 AC Sodium Chloride 100 ML IV Vecuronium [place] 10 MG ONCE ONE 02/26 1115 DC 02/26 IV 02/26 1116 0918 Interpretation: EEG obtained in obtunded state on diprovan Predominantly low voltage 18-22 cps activity Intermittent 4-5 cps activity superimposed No epileptiform activities or focal abnormalities Impression: Abnormal EEG due to loss of alpha rhythm and intermittent slow wave activities indicative of diffuse cerebral dysfunction, likely secondary to medication effect
[2018-02-26 18:47] LABS: ABSOLUTE BASOPHIL COUNT 0 /CUMM (0.0-0.2); ABSOLUTE EOSINOPHIL COUNT 0 /CUMM (0.0-0.7); ABSOLUTE GRANULOCYTE CT 9.5 /CUMM (1.4-6.5); ABSOLUTE LYMPH COUNT 2.1 /CUMM (1.2-3.4); ABSOLUTE MONOCYTE COUNT 1.8 /CUMM (0.10-0.60); BASOPHIL % 0.3 % (0.0-2.0); EOSINOPHIL % 0.2 % (0-5); MEAN CORPUSCULAR HGB 31.2 PG (27.0-31.0); MEAN CORPUSCULAR HGB CONC 34.3 G/DL (33.0-37.0); MEAN CORPUSCULAR VOLUME 90.9 FL (80.0-94.0); MEAN PLATELET VOLUME 9.5 FL (7.4-10.4); RBC DISTRIBUTION WIDTH 14.5 % (11.5-14.5); RED BLOOD CELL CT 4.58 /CUMM (4.70-6.10); WHITE BLOOD CELL COUNT 13.6 /CUMM (4.8-10.8)
[2018-02-26 18:59] LABS: HEMATOCRIT 41.6 % (42-52)
[2018-02-26 19:12] LABS: GRANULOCYTE % 70.3 % (42.2-75.2)
--- NOTE | 2018-02-26 19:22 | Admission Certification ---
Admission Certification Certification Statement - As attending physician, I certify that at the time of - admission, based on clinical presentation, severity of - symptoms, need for further diagnostic testing and - therapeutic interventions, and risk of adverse outcomes - without in-hospital treatment, in my clinical assessment, - this patient requires an acute hospital stay for a minimum - of two nights or longer. I have also considered psychsocial - factors such as support system, advanced age, financial - issues, cognitive issues, and failed out-patient treatments, - past re-admission history, safety of patient, and lack of - compliance as applicable. Specific rationale supporting this admission is: resp failure and intractable seizure
[2018-02-27] VITALS: BP 138/96
[2018-02-27 04:31] LABS: ABSOLUTE BASOPHIL COUNT 0 /CUMM (0.0-0.2); ABSOLUTE EOSINOPHIL COUNT 0 /CUMM (0.0-0.7); HEMATOCRIT 40.3 % (42-52); RED BLOOD CELL CT 4.46 /CUMM (4.70-6.10)
[2018-02-27 04:47] LABS: ABSOLUTE GRANULOCYTE CT 8.2 /CUMM (1.4-6.5); ABSOLUTE LYMPH COUNT 1.9 /CUMM (1.2-3.4); ABSOLUTE MONOCYTE COUNT 2.1 /CUMM (0.10-0.60); BASOPHIL % 0.2 % (0.0-2.0); EOSINOPHIL % 0.2 % (0-5); GRANULOCYTE % 67.2 % (42.2-75.2); MEAN CORPUSCULAR HGB 31.3 PG (27.0-31.0); MEAN CORPUSCULAR HGB CONC 34.7 G/DL (33.0-37.0); MEAN CORPUSCULAR VOLUME 90.3 FL (80.0-94.0); RBC DISTRIBUTION WIDTH 14.5 % (11.5-14.5); WHITE BLOOD CELL COUNT 12.2 /CUMM (4.8-10.8)
[2018-02-27 08:00] VITALS: BP 122/90
--- NOTE | 2018-02-27 08:13 | RADIOLOGY REPORT ---
EXAMINATION: XR PORTABLE CHEST CLINICAL INFORMATION: Intubated patient. Confirmation of lines and tubes. COMPARISON: Chest radiograph 02/26/2018. TECHNIQUE: Portable frontal view of the chest was obtained. FINDINGS: There is an endotracheal tube in place with tip approximately 6.5 cm from the seven. There is an enteric tube which is visualized in the stomach. There is atelectasis at the right lung base and low lung volumes. No large volume pleural effusions or pneumothorax. There are postoperative findings related to median sternotomy. The most superior sternal wire is fractured. A prosthetic aortic valve is in place. IMPRESSION: Endotracheal tube and enteric tube are in position. Atelectasis at the right lung base.
--- NOTE | 2018-02-27 08:41 | PN- Resident CRCU ---
Subjective HPI/CRCU Issues: #Chronic Seizure Disorder, p/b status epilepticus, on keppra and valproate #Acute Resp Distress s/p intubation #PEPPER #L nondisplaced transcondylear fracture, splinted #Nasal Bone and Septum Fracture 24 Hour Events: Pt was seen and examined at bedside this am. He was sedated on propofol and nonresponsive to verbal or noxious stimuli. Responded to verbal stimuli once propofol was stopped, though patients remain agitated. Objective Vital Signs & I&O Last 8 Hrs of Vitals and I&O: Intake & Output 02/27 1600 02/27 0800 02/27 0000 Intake Total 639 3145 Output Total 350 550 Balance 289 2595 Intake, IV 639 3145 Intake, Oral 0 0 Number 0 0 Bowel Movements Output, 0 Gastric Drainage Output, Urine 350 550 Patient 200 lb Weight Weight Bed scale Measurement Method Laboratory Tests 02/27 02/27 02/26 0805 0410 1740 Blood Gas pH (7.35 - 7.45 PH) 7.45 pCO2 (35 - 45 TORR) 29 L pO2 (80 - 100 TORR) 97 HCO3 (21 - 28 MEQ/L) 20 L ABG O2 Sat (Measured) (>96.0 %) 96.0 Carboxyhemoglobin (1.5 - 5.0 %) 0.8 L O2 Concentration % 35% Respiration Rate (BPM) 20 O2 Delivery Method VENT Vent Mode VC-AC Expiratory Pressure (CMH2O/P) 5 Tidal Volume (CC) 500 Pressure Support (CMH2O/P) 0 Chemistry Sodium (137 - 145 mmol/L) 145 Potassium (3.5 - 5.1 mmol/L) 4.6 Chloride (98 - 107 mmol/L) 112 H Carbon Dioxide (22 - 30 mmol/L) 21 L Anion Gap (5 - 16) 12 BUN (9 - 20 mg/dL) 29 H Creatinine (0.7 - 1.2 mg/dL) 1.3 H Estimated GFR (>60 ml/min) 55 L Glucose (65 - 99 mg/dL) 131 H Lactic Acid (0.7 - 2.1 mmol/L) 1.8 Calcium (8.4 - 10.2 mg/dL) 8.5 Phosphorus (2.5 - 4.5 mg/dL) 3.4 Magnesium (1.6 - 2.3 mg/dL) 1.8 Total Bilirubin (0.2 - 1.3 mg/dL) 0.8 AST (17 - 59 U/L) 34 ALT (21 - 72 U/L) 32 Albumin (3.5 - 5.0 g/dL) 3.2 L Hematology CBC w Diff MAN DIFF ORDERED WBC (4.8 - 10.8 /CUMM) 12.2 H RBC (4.70 - 6.10 /CUMM) 4.46 L Hgb (14.0 - 18.0 G/DL) 14.0 Hct (42 - 52 %) 40.3 L MCV (80.0 - 94.0 FL) 90.3 MCH (27.0 - 31.0 PG) 31.3 H MCHC (33.0 - 37.0 G/DL) 34.7 RDW (11.5 - 14.5 %) 14.5 Plt Count (130 - 400 /CUMM) MPV (7.4 - 10.4 FL) 9.7 Gran % (42.2 - 75.2 %) 67.2 Lymphocytes % (20.5 - 51.1 %) 15.4 L Monocytes % (1.7 - 9.3 %) 17.0 H Eosinophils % (0 - 5 %) 0.2 Basophils % (0.0 - 2.0 %) 0.2 Absolute Granulocytes (1.4 - 6.5 /CUMM) 8.2 H Segmented Neutrophils (42.2 - 75.2 %) 73 Band Neutrophils (0.0 - 5.0 %) 1 Absolute Lymphocytes (1.2 - 3.4 /CUMM) 1.9 Lymphocytes (20.5 - 51.1 %) 16 L Monocytes (1.7 - 9.3 %) 10 H Absolute Monocytes (0.10 - 0.60 /CUMM) 2.1 H Absolute Eosinophils (0.0 - 0.7 /CUMM) 0 Absolute Basophils (0.0 - 0.2 /CUMM) 0 Platelet Estimate (ADEQUATE) Normocytic RBCs VERIFIED Normochromic RBCs VERIFIED Miscellaneous Phlebotomy Draw Site RIGHT RADIAL 02/26 02/26 1740 1206 Chemistry Sodium (137 - 145 mmol/L) 143 Potassium (3.5 - 5.1 mmol/L) 4.6 Chloride (98 - 107 mmol/L) 109 H Carbon Dioxide (22 - 30 mmol/L) 23 Anion Gap (5 - 16) 12 BUN (9 - 20 mg/dL) 34 H Creatinine (0.7 - 1.2 mg/dL) 1.6 H Estimated GFR (>60 ml/min) 43 L Glucose (65 - 99 mg/dL) 157 H Calcium (8.4 - 10.2 mg/dL) 8.5 Phosphorus (2.5 - 4.5 mg/dL) 3.8 Magnesium (1.6 - 2.3 mg/dL) 1.9 Total Bilirubin (0.2 - 1.3 mg/dL) 0.6 AST (17 - 59 U/L) 35 ALT (21 - 72 U/L) 39 Troponin I (<0.11 ng/ml) 0.01 Albumin (3.5 - 5.0 g/dL) 3.3 L Hematology CBC w Diff NO MAN DIFF REQ WBC (4.8 - 10.8 /CUMM) 13.6 H RBC (4.70 - 6.10 /CUMM) 4.58 L Hgb (14.0 - 18.0 G/DL) 14.3 Hct (42 - 52 %) 41.6 L MCV (80.0 - 94.0 FL) 90.9 MCH (27.0 - 31.0 PG) 31.2 H MCHC (33.0 - 37.0 G/DL) 34.3 RDW (11.5 - 14.5 %) 14.5 Plt Count (130 - 400 /CUMM) MPV (7.4 - 10.4 FL) 9.5 Gran % (42.2 - 75.2 %) 70.3 Lymphocytes % (20.5 - 51.1 %) 15.7 L Monocytes % (1.7 - 9.3 %) 13.5 H Eosinophils % (0 - 5 %) 0.2 Basophils % (0.0 - 2.0 %) 0.3 Absolute Granulocytes (1.4 - 6.5 /CUMM) 9.5 H Absolute Lymphocytes (1.2 - 3.4 /CUMM) 2.1 Absolute Monocytes (0.10 - 0.60 /CUMM) 1.8 H Absolute Eosinophils (0.0 - 0.7 /CUMM) 0 Absolute Basophils (0.0 - 0.2 /CUMM) 0 Toxicology Urine Opiates Screen (>2000 NG/ML) 501 Methadone Screen (>300 NG/ML) 64 Barbiturate Screen (>200 NG/ML) < 60 Ur Phencyclidine Scrn (>25 NG/ML) < 6.00 Amphetamines Screen (>1000 NG/ML) < 100 U Benzodiazepines Scrn (>200 NG/ML) > 800 H Urine Cocaine Screen (>300 NG/ML) > 1000 H Urine Cannabis Screen (>50 NG/ML) 77.80 H Urines Urine Color (YEL,AMB,STR) YEL Urine Clarity (CLEAR) HAZY H Urine pH (5.0 - 8.0) 6.0 Ur Specific [place] (1.001 - 1.035) 1.025 Urine Protein (NEG,<30 MG/DL) 30 H Urine Ketones (NEG) NEG Urine Nitrite (NEG) NEG Urine Bilirubin (NEG) NEG Urine Urobilinogen (0.1 - 1.0 EU/dl) 0.2 Ur Leukocyte Esterase (NEG) NEG Ur Microscopic SEDIMENT EXAMINED Urine RBC (0 - 5 /HPF) 15-25 H Urine WBC (0 - 2 /HPF) 1-3 H Urine Bacteria (NEG/NONE) FEW H Hyaline Casts (0/LPF) 1-3 H Urine Hemoglobin (NEG) MOD H Urine Glucose (N MG/DL) NEG 02/26 1118 Blood Gas pH (7.35 - 7.45 PH) 7.34 L pCO2 (35 - 45 TORR) 37 pO2 (80 - 100 TORR) 295 H HCO3 (21 - 28 MEQ/L) 19 L ABG O2 Sat (Measured) (>96.0 %) 98.0 P-50 (Temp Corrected) N Carboxyhemoglobin (1.5 - 5.0 %) 0.3 L O2 Concentration % 100% Temperature (97.0 - 100.0 FARH) 97.9 Respiration Rate (BPM) 20 O2 Delivery Method VENT Vent Mode VC-AC Expiratory Pressure (CMH2O/P) 5 Tidal Volume (CC) 500 Miscellaneous Phlebotomy Draw Site RIGHT RADIAL Vital Signs Date Time Temp Pulse Resp B/P B/P Pulse O2 O2 Flow FiO2 Mean Ox Delivery Rate 02/27 0833 35 02/27 08 99 Ventilator 35% 02/28 800 98.3 93 24 122/90 99 Ventilator 35% 02/27 0551 35 02/27 0400 98 Ventilator 35% 02/27 0329 35 Exam General Appearance: sedated, intubated Head: evidence of injury, ecchymoses around bilateral nasal area Neck: normal inspection, supple Respiratory: normal breath sounds, lungs clear Cardiovascular: edema, irregularly irregular Gastrointestinal: normal bowel sounds, soft, no organomegaly Extremities: normal capillary refill, pedal edema Cranial Nerves: small pupils reactive to light. Current Medications: Current Medications Sig/Louise Start time Last Medication Dose Route Stop Time Status Admin Ampicillin Sodium/ 3,000 MG Q6 02/27 1200 AC Sulbactam Sodium IV Sodium Chloride 100 ML Dextrose 25 GM ONCE ONE 02/26 1645 DC 02/26 IV 02/26 1646 1651 Dextrose/Sodium 1,000 ML Q20H 02/26 1715 AC 02/26 Chloride IV 02/27 1314 1805 Etomidate 20 MG ONCE ONE 02/26 1115 DC 02/26 IV 02/26 1116 0850 Fentanyl Citrate 50 ML ONCE ONE 02/26 1445 DC 02/26 IV 02/26 1446 1511 Fentanyl Citrate 0 .STK-MED ONE 02/26 1442 DC .ROUTE Heparin Sodium 5,000 UNIT Q8 02/27 0600 AC 02/27 (Porcine) SC 0539 Hydromorphone HCl 1 MG ONCE ONE 02/26 1115 DC IV 02/26 1116 Levetiracetam 1,000 MG Q8 02/26 2200 AC 02/27 N/A 1 UNIT IV 0539 Levetiracetam 1,000 MG Q1H 02/26 1645 DC 02/26 N/A 1 UNIT IV 02/26 1814 1856 Levetiracetam 2,000 MG ONCE ONE 02/26 1615 CAN IV 02/26 1616 Lorazepam 1 MG Q4P PRN 02/27 1100 UNVr IV Lorazepam 1 MG ONCE ONE 02/27 1030 DC IV 02/27 1031 Lorazepam 2 MG ONE ONE 02/26 1445 DC 02/26 IV 02/26 1446 1511 Lorazepam 0 .STK-MED ONE 02/26 1438 DC .ROUTE Lorazepam 1 MG ONCE ONE 02/26 1115 DC 02/26 IV 02/26 1116 0850 Midazolam HCl 5 MG ONCE ONE 02/26 1115 DC 02/26 IV 02/26 1116 1117 Non-Formulary 0 SEE ADMIN CRITERIA 02/26 1145 CAN Medication ANY Pantoprazole Sodium 40 MG DAILY 02/26 2035 AC 02/27 IV 0754 Propofol 1,000 MG .STK-MED ONE 02/26 2202 DC IV 02/26 2203 Propofol 1,000 MG Q12H 02/26 1145 AC 02/27 N/A 1 UNIT IV 0543 Sodium Chloride 1,000 ML BOLUS ONE 02/26 1745 DC 07/16 IV / 1944 1805 Sodium Chloride 500 ML BOLUS ONE 02/26 1530 DC IV 02/26 1629 Sodium Chloride 1,000 ML ONCE ONE 02/26 1400 DC 07/ IV 02/27 0959 1523 Succinylcholine 100 MG ONCE ONE 02/26 1115 DC / Chloride IV 02/26 1116 0900 Valproate Sodium 1,000 MG BID 02/26 2100 CAN IV Valproate Sodium 1,000 MG BID 02/26 2100 AC 02/27 Sodium Chloride 100 ML IV 0915 Vecuronium [place] 10 MG ONCE ONE 02/26 1115 DC / IV 02/26 1116 0918 CXR Findings: 02/27 EXAM TYPE: RAD - XRY-PORTABLE CHEST XRAY EXAMINATION: XR PORTABLE CHEST CLINICAL INFORMATION: Intubated patient. Confirmation of lines and tubes. COMPARISON: Chest radiograph 02/26/2018. TECHNIQUE: Portable frontal view of the chest was obtained. FINDINGS: There is an endotracheal tube in place with tip approximately 6.5 cm from the seven. There is an enteric tube which is visualized in the stomach. There is atelectasis at the right lung base and low lung volumes. No large volume pleural effusions or pneumothorax. There are postoperative findings related to median sternotomy. The most superior sternal wire is fractured. A prosthetic aortic valve is in place. IMPRESSION: Endotracheal tube and enteric tube are in position. Atelectasis at the right lung base. Impression/Plan Impression/Problem List Impression: 67 y/o M with PMH of chronic seizure disorder on valproate, CAD s/p CABG and bovine aortic valve replacement in 2013, Hodgkins lymphoma, HTN and HLD that was brought to the ED after he was /found to be unresponsiveness. The patient was at his baseline on 02/25. On the ED the patient's respiratory drive was poor and he was intubated. The EKG on the ED showed transient A-fib that converted to SR and reconverted to Afib. He was admitted to the ICU for management of his acute seizure episode p/b status epilepticus s/p intubation. Of note on 02/22, patient had a work related accident where he fell and landed on his face - CXR shows nasal bones and septum fracture. He also presented with a L nondisplaced supracondylear fracture. IMPRESSIONS #Chronic Seizure Disorder, p/b status epilepticus, on keppra and valproate #Acute Resp Distress s/p intubation #PEPPER #Afib #L nondisplaced transcondylear fracture, splinted #Nasal Bone and Septum Fracture #Chronic Seizure Disorder, p/b status epilepticus Pt has a long standing history of seizure disorder, compliant on his valproic acid as evidenced by records and laboratory studies (Urine Valproate in therapeutic range). Urine toxicology showed evidence of cocaine use, could be playing a part into this latest seizure episode. His head CT (02/26) shows a chronic arachnoid cyst on the left anterior middle cranial fossa with some slight interval increase in size. He does have a history of ETOH use and while his serum alcohol was not impressive, a withdrawal induced seizure is still in the differential. Neurology was consulted and EEG showed no seizure activity. -F/u EEG -Pt on keppra and valproate -Off propofol #Acute Resp Distress s/p intubation On arrival, pt had poor inspiratory effort and there was concern for worsening status. He was intubated on AC 500/20/5/100% now down to 0.35 FiO2. He was sedated on propofol and fentanyl, now both dc'd. Patient however remains agitated off propofol, ativan PRN to be given. There is concern for aspiration PNA due to his seizure activity and subsequent difficult intubation; CXR is not impressive for PNA, though respiratory culture growing G(-) Rods. IV Unasyn will be started. -IV ativan PRN as needed -Weaning -IV Unasyn 3g q6 #PEPPER Pt with BUN/Cr of 35/1.6 on admit, now down to 1.3/. Cause might be prerenal due to improvement upon initiation of IVF. -D5NS #Afib During his admission, pt's EKG showed atrial fibrillation that converted back to SR and back to Afib. This pattern has repeated during the AM. He has an extensive cardiac history of CAD s/p CABG, bioprosthetic valve replacement, HTN/ HLD with a positive urine tox for cocaine. Cardiology was consulted - home antihtn meds should be restarted when feasible. -Atorvastatin/Metoprolol/ASA to be restarted when possible #L nondisplaced transcondylear fracture, splinted On arrival, a L nondisplaced transcondylear fracture was noted. Pt is currently splinted. Orthopedics were consulted, and as per their recommendation, due to the patient's current status, a nonoperative management is recommended, though can be reconsidered on improvement of his status. Ice packs can be applied around the elbow. -Splint to remain -Ice packs around the elbow if needed FULL CODE DVT PPX: MECH, PHARM NPO Problem List: 1. Status epilepticus Pain Ratin (not assessed, pt intubated) Tomorrow's Labs & Rationales: CXR Echo ICU lab bundle CBC Plan DVT/Prophylaxis: mechanical, pharmacological
--- NOTE | 2018-02-27 09:56 | PN- CRCU ---
Subjective HPI/Critical Care Issues: Doing ok No seizure Off propofol Waking up Pupil still small and reactive EEG no seizure On keppra and valproic acid IN Afib with HR around 90 Objective Current Medications: Current Medications Sig/Louise Start time Last Medication Dose Route Stop Time Status Admin Dextrose 25 GM ONCE ONE 02/26 1645 DC 07 IV 02/26 1646 1651 Dextrose/Sodium 1,000 ML Q20H 02/26 1715 AC 07 Chloride IV 02/27 1314 1805 Etomidate 20 MG ONCE ONE 02/26 1115 DC 07 IV 02/26 1116 0850 Fentanyl Citrate 50 ML ONCE ONE 02/26 1445 DC 02/26 IV 02/26 1446 1511 Fentanyl Citrate 0 .STK-MED ONE 02/26 1442 DC .ROUTE Heparin Sodium 5,000 UNIT Q8 02/27 0600 AC 02/27 (Porcine) SC 0539 Hydromorphone HCl 1 MG ONCE ONE 02/26 1115 DC IV 02/26 1116 Labetalol HCl 0 .STK-MED ONE 02/26 1001 DC IV Labetalol HCl 10 MG ONCE ONE 02/26 1000 DC 07 IV 02/26 1001 1004 Levetiracetam 1,000 MG Q8 02/26 2200 AC 02/27 N/A 1 UNIT IV 0539 Levetiracetam 1,000 MG Q1H 02/26 1645 DC 02/26 N/A 1 UNIT IV 02/26 1814 1856 Levetiracetam 2,000 MG ONCE ONE 02/26 1615 CAN IV 02/26 1616 Lorazepam 2 MG ONE ONE 02/26 1445 DC 02/26 IV 02/26 1446 1511 Lorazepam 0 .STK-MED ONE 02/26 1438 DC .ROUTE Lorazepam 1 MG ONCE ONE 02/26 1115 DC 02/26 IV 02/26 1116 0850 Lorazepam 2 MG ONE ONE 02/26 1045 DC 02/26 IV 02/26 1046 1050 Lorazepam 0 .STK-MED ONE 02/26 1038 DC .ROUTE Midazolam HCl 5 MG ONCE ONE 02/26 1115 DC 07/ IV 02/26 1116 1117 Morphine Sulfate 4 MG ONCE ONE 02/26 1045 DC 02/26 IV 02/26 1046 1050 Morphine Sulfate 0 .STK-MED ONE 02/26 1038 DC .ROUTE Non-Formulary 0 SEE ADMIN CRITERIA 02/26 1145 CAN Medication ANY Pantoprazole Sodium 40 MG DAILY 02/26 2035 02/27 IV 0754 Propofol 1,000 MG .STK-MED ONE 02/26 2202 DC IV 02/26 2203 Propofol 1,000 MG Q12H 02/26 1145 AC 02/27 N/A 1 UNIT IV 0543 Sodium Chloride 1,000 ML BOLUS ONE 02/26 1745 DC 02/26 IV 02/26 1944 1805 Sodium Chloride 500 ML BOLUS ONE 02/26 1530 DC IV 02/26 1629 Sodium Chloride 1,000 ML ONCE ONE 02/26 1400 DC 02/26 IV 02/27 0959 1523 Succinylcholine 100 MG ONCE ONE 02/26 1115 DC 02/26 Chloride IV 02/26 1116 0900 Valproate Sodium 1,000 MG BID 02/26 2100 CAN IV Valproate Sodium 1,000 MG BID 02/26 2100 AC 02/27 Sodium Chloride 100 ML IV 0915 Vecuronium [place] 10 MG ONCE ONE 02/26 1115 DC 02/26 IV 02/26 1116 0918 Vital Signs & I&O Last 24 Hrs of Vitals and I&O: Vital Signs Date Time Temp Pulse Resp B/P B/P Pulse O2 O2 Flow FiO2 Mean Ox Delivery Rate 02/27 0833 35 02/27 0800 99 Ventilator 35% 02/27 0800 98.3 93 24 122/90 99 Ventilator 35% 02/27 0551 35 02/27 0400 98 Ventilator 35% 02/27 0329 35 02/27 0115 35 02/27 0000 98 Ventilator 35% 02/27 0000 98.3 92 20 138/96 99 Ventilator 35% 02/26 2240 35 02/26 2208 Ventilator 40% 02/26 2000 100 Ventilator 40% 02/26 1900 40 02/26 1605 50 02/26 1600 100 Ventilator 50% 02/26 1600 97.6 84 20 98/0 99 Ventilator 50% 02/26 1518 87 20 80/54 97 02/26 1445 78 94/64 02/26 1434 50 02/26 1430 91 137/88 02/26 1340 84 20 145/113 100 Ventilator 100% 02/26 1319 97.8 93 18 140/104 100 02/26 1222 88 20 137/102 99 Ventilator 5.0L 02/26 1024 79 164/128 02/26 1004 201/148 02/26 0953 82 20 201/148 95 Ventilator Intake & Output 02/27 1600 02/27 0800 02/27 0000 Intake Total 639 3145 Output Total 350 550 Balance 289 2595 Intake, IV 639 3145 Intake, Oral 0 0 Number 0 0 Bowel Movements Output, 0 Gastric Drainage Output, Urine 350 550 Patient 200 lb Weight Weight Bed scale Measurement Method Impression/Plan Impression/Plan Impression/Plan: СЕРГЕЙ, Eomi Chest clear cvs aure, afib abd soft No edema Fracture left Ue This is a 67-year-old gentleman with history of hypertension, hyperlipidemia, CABG, previous bovine aortic valve replacement, previous history of Hodgkin's lymphoma in the late with previous chemoradiation therapy leading to significant neuropathy, significant medical marijuana usage, alcohol use on and off, multiple surgeries and chronic pain, previous seizure disorder started in 2014 and since then followed by [facility] seizure clinic (compliant) comes here with * Witnessed seizure activity (apparently witnessed this am) EEG while on propofol no seizure. Patient does have a large arachnoid cyst in his left temporal area with mass effect to the underlying temporal area (appears stable since 2015), Pt with previous history of sig etoh use, marijuana use and urine tox positive for cocaine and seizure from cocaine vs withdrawal and other causes including cocaine induced bricklayer helper injury vs small vessel cerebral ishemia. This am did follow commands off propofol * Acute respiratory failure due to seizure activity patient has been intubated. May have aspiration pna as well as he was a difficult intubation. Has gram neg rods in the sputum * Significant alcohol use by history with probable dts, Marijuana use now with cocaine in the urine (level high), * Gentleman with heart disease with previous CABG and aortic valve replacement with bioprosthetic valve with previous arrythmia, now seems like in afib with controlled ventricular response (fall, nasal fracture with possible intractable seizure with cocaine positive and hence not a candidate for anticoag * Previous history of nephrolithiasis, now with john * Now sig delirium on and off requiring ativan now on propofol * Nasal fracture and displaced transcondylar fracture of distal left humerus * 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
--- NOTE | 2018-02-27 10:46 | Cons- Orthopedic ---
General Information and HPI Consulting Request Date of Consult: 02/27/18 Requested By: Debbie ANDERSON,Kb Solano Reason for Consult: Left distal humerus fracture. Source of Information: current medical records. Exam Limitations: unable to give history, intubated and sedated. History of Present Illness: The patient is a 67-year-old male with a history of seizure disorder who was found unresponsive yesterday morning and who sustained a witnessed seizure while being transported to the hospital was admitted for workup and resuscitation. There was apparently some deformity about the left elbow. X-rays of the elbow were obtained showing a distal humerus fracture. The patient's left upper extremity was splinted in a long-arm posterior fiberglass splint. The patient was intubated and sedated and began treatment and workup for his seizure disorder and loss of consciousness. An orthopedic consult was called based upon the x-ray findings at the left elbow. No additional information is available to me at this time pertaining to the left elbow. Hand dominance is not known at this time. 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 The patient appears to be status post prior left elbow trauma and/or surgery as x-rays do show him to be status post resection of the radial head and neck with a probable chronic posterior subluxation of the proximal radius and with additional degenerative changes noted at the humeral-on the joint. The radial head/neck resection appears to be chronic as there is some heterotopic bone present in the region of the prior radial head and neck. Allergies/Medications Allergies: Coded Allergies: bee venom protein (honey bee) (UNKNOWN 02/26/18) Home Med List: Atorvastatin Calcium 40 MG TABLET 1 TAB PO DAILY CHOLESTEROL (Reported) Divalproex Sodium (Divalproex Sodium ER) 500 MG TAB.ER.24H 2 TAB PO BID SEIZURES (Reported) Duloxetine HCl 60 MG CAPSULE.DR 1 CAP PO DAILY UNKNOWN (Reported) Metoprolol Tartrate 25 MG TABLET 1 TAB PO BID HEART (Reported) Current Medications: Current Medications Sig/Louise Start time Last Medication Dose Route Stop Time Status Admin Ampicillin Sodium/ 3,000 MG Q6 02/27 1200 AC Sulbactam Sodium IV Sodium Chloride 100 ML Dextrose 25 GM ONCE ONE 02/26 1645 DC 02/26 IV 02/26 1646 1651 Dextrose/Sodium 1,000 ML Q20H 02/26 1715 AC 02/26 Chloride IV 02/27 1314 1805 Etomidate 20 MG ONCE ONE 02/26 1115 DC 07/ IV 02/26 1116 0850 Fentanyl Citrate 50 ML ONCE ONE 02/26 1445 DC 02/26 IV 02/26 1446 1511 Fentanyl Citrate 0 .STK-MED ONE 02/26 1442 DC .ROUTE Heparin Sodium 5,000 UNIT Q8 02/27 0600 AC 02/27 (Porcine) SC 0539 Hydromorphone HCl 1 MG ONCE ONE 02/26 1115 DC IV 02/26 1116 Levetiracetam 1,000 MG Q8 02/26 2200 AC 02/27 N/A 1 UNIT IV 0539 Levetiracetam 1,000 MG Q1H 02/26 1645 DC 02/26 N/A 1 UNIT IV 02/26 1814 1856 Levetiracetam 2,000 MG ONCE ONE 02/26 1615 CAN IV 02/26 1616 Lorazepam 1 MG ONCE ONE 02/27 1030 AC IV 02/27 1031 Lorazepam 2 MG ONE ONE 02/26 1445 DC 02/26 IV 02/26 1446 1511 Lorazepam 0 .STK-MED ONE 02/26 1438 DC .ROUTE Lorazepam 1 MG ONCE ONE 02/26 1115 DC 02/26 IV 02/26 1116 0850 Lorazepam 2 MG ONE ONE 02/26 1045 DC 02/26 IV 02/26 1046 1050 Lorazepam 0 .STK-MED ONE 02/26 1038 DC .ROUTE Midazolam HCl 5 MG ONCE ONE 02/26 1115 DC 02/26 IV 02/26 1116 1117 Morphine Sulfate 4 MG ONCE ONE 02/26 1045 DC 02/26 IV 02/26 1046 1050 Morphine Sulfate 0 .STK-MED ONE 02/26 1038 DC .ROUTE Non-Formulary 0 SEE ADMIN CRITERIA 02/26 1145 CAN Medication ANY Pantoprazole Sodium 40 MG DAILY 02/26 2035 AC 02/27 IV 0754 Propofol 1,000 MG .STK-MED ONE 02/26 220 DC IV 02/26 2203 Propofol 1,000 MG Q12H 02/26 1145 AC 02/27 N/A 1 UNIT IV 0543 Sodium Chloride 1,000 ML BOLUS ONE 02/26 1745 DC 02/26 IV 02/26 1944 1805 Sodium Chloride 500 ML BOLUS ONE 02/26 1530 DC IV 02/26 1629 Sodium Chloride 1,000 ML ONCE ONE 02/26 1400 DC 02/26 IV 02/27 0959 1523 Succinylcholine 100 MG ONCE ONE 02/26 1115 DC 02/26 Chloride IV 02/26 1116 0900 Valproate Sodium 1,000 MG BID 02/26 2100 CAN IV Valproate Sodium 1,000 MG BID 02/26 2100 AC 02/27 Sodium Chloride 100 ML IV 0915 Vecuronium [place] 10 MG ONCE ONE 02/26 1115 DC 02/26 IV 02/26 1116 0918 Past History Medical History Blood Transfusion Hx: No Neurological: seizure Cardiovascular: hypertension, hyperlipidemia Respiratory: NONE Renal: nephrolithiasis Musculoskeletal: NEUROPATHY FEET & HANDS Cancer(s): hodgkins lymphoma Surgical History Pertinent Surgical History: CABG, BACK SURGERY, BILATERAL THUMB REPLACMENT AVR Psychosocial History Where Do You Live? Home Services at Home: None Smoking Status: Unknown If Ever Smoked ETOH Use: 5 Exam & Diagnostic Data Vital Signs and I&O Vital Signs Date Time Temp Pulse Resp B/P B/P Pulse O2 O2 Flow FiO2 Mean Ox Delivery Rate 02/27 0833 35 02/27 0800 99 Ventilator 35% 02/27 0800 98.3 93 24 122/90 99 Ventilator 35% 02/27 0551 35 02/27 0400 98 Ventilator 35% 02/27 0329 35 02/27 0115 35 02/27 0000 98 Ventilator 35% 02/27 0000 98.3 92 20 138/96 99 Ventilator 35% 02/26 2240 35 02/26 2208 Ventilator 40% 02/26 2000 100 Ventilator 40% 02/26 1900 40 02/26 1605 50 02/26 1600 100 Ventilator 50% 02/26 1600 97.6 84 20 98/0 99 Ventilator 50% 02/26 1518 87 20 80/54 97 02/26 1445 78 94/64 02/26 1434 50 02/26 1430 91 137/88 02/26 1340 84 20 145/113 100 Ventilator 100% 02/26 1319 97.8 93 18 140/104 100 02/26 1222 88 20 137/102 99 Ventilator 5.0L Intake & Output 02/27 1600 02/27 0800 / 0000 02/26 1600 02/26 0800 02/26 0000 Intake Total 639 1645 1550 Output Total 350 300 250 Balance 289 1345 1300 Intake, IV 639 1645 1550 Intake, Oral 0 0 Number 0 0 Bowel Movements Output, 0 Gastric Drainage Output, Urine 350 300 250 Patient 200 lb 200 lb Weight Weight Bed scale Bed scale Measurement Method Physical Exam: The patient appears to be a well-nourished and well-developed middle-aged white male looking roughly his reported age who is currently sedated and intubated on a ventilator. He is not responsive to verbal or tactile stimuli at this time. Examination of the left upper extremity shows a posterior fiberglass long-arm splint in place and in good repair. The skin at the proximal and distal margins of the splint is intact and in good repair. The splint is not taken down today. Tenderness is not assessed. Motion was not assessed. Radial and ulnar pulses are 2+. Capillary refill in the fingers are brisk. Motor and sensory function cannot be assessed due to the patient's mental status. Physical Exam General Appearance: well developed/nourished, sedated, intubated Head: contusions, ecchymosis Last 24 Hours of Labs: Laboratory Tests 02/27 02/27 02/26 0805 0410 1740 Blood Gas pH (7.35 - 7.45 PH) 7.45 pCO2 (35 - 45 TORR) 29 L pO2 (80 - 100 TORR) 97 HCO3 (21 - 28 MEQ/L) 20 L ABG O2 Sat (Measured) (>96.0 %) 96.0 Carboxyhemoglobin (1.5 - 5.0 %) 0.8 L O2 Concentration % 35% Respiration Rate (BPM) 20 O2 Delivery Method VENT Vent Mode VC-AC Expiratory Pressure (CMH2O/P) 5 Tidal Volume (CC) 500 Pressure Support (CMH2O/P) 0 Chemistry Sodium (137 - 145 mmol/L) 145 Potassium (3.5 - 5.1 mmol/L) 4.6 Chloride (98 - 107 mmol/L) 112 H Carbon Dioxide (22 - 30 mmol/L) 21 L Anion Gap (5 - 16) 12 BUN (9 - 20 mg/dL) 29 H Creatinine (0.7 - 1.2 mg/dL) 1.3 H Estimated GFR (>60 ml/min) 55 L Glucose (65 - 99 mg/dL) 131 H Lactic Acid (0.7 - 2.1 mmol/L) 1.8 Calcium (8.4 - 10.2 mg/dL) 8.5 Phosphorus (2.5 - 4.5 mg/dL) 3.4 Magnesium (1.6 - 2.3 mg/dL) 1.8 Total Bilirubin (0.2 - 1.3 mg/dL) 0.8 AST (17 - 59 U/L) 34 ALT (21 - 72 U/L) 32 Albumin (3.5 - 5.0 g/dL) 3.2 L Hematology CBC w Diff MAN DIFF ORDERED WBC (4.8 - 10.8 /CUMM) 12.2 H RBC (4.70 - 6.10 /CUMM) 4.46 L Hgb (14.0 - 18.0 G/DL) 14.0 Hct (42 - 52 %) 40.3 L MCV (80.0 - 94.0 FL) 90.3 MCH (27.0 - 31.0 PG) 31.3 H MCHC (33.0 - 37.0 G/DL) 34.7 RDW (11.5 - 14.5 %) 14.5 Plt Count (130 - 400 /CUMM) MPV (7.4 - 10.4 FL) 9.7 Gran % (42.2 - 75.2 %) 67.2 Lymphocytes % (20.5 - 51.1 %) 15.4 L Monocytes % (1.7 - 9.3 %) 17.0 H Eosinophils % (0 - 5 %) 0.2 Basophils % (0.0 - 2.0 %) 0.2 Absolute Granulocytes (1.4 - 6.5 /CUMM) 8.2 H Segmented Neutrophils (42.2 - 75.2 %) 73 Band Neutrophils (0.0 - 5.0 %) 1 Absolute Lymphocytes (1.2 - 3.4 /CUMM) 1.9 Lymphocytes (20.5 - 51.1 %) 16 L Monocytes (1.7 - 9.3 %) 10 H Absolute Monocytes (0.10 - 0.60 /CUMM) 2.1 H Absolute Eosinophils (0.0 - 0.7 /CUMM) 0 Absolute Basophils (0.0 - 0.2 /CUMM) 0 Platelet Estimate (ADEQUATE) Normocytic RBCs VERIFIED Normochromic RBCs VERIFIED Miscellaneous Phlebotomy Draw Site RIGHT RADIAL 02/26 02/26 1740 1206 Chemistry Sodium (137 - 145 mmol/L) 143 Potassium (3.5 - 5.1 mmol/L) 4.6 Chloride (98 - 107 mmol/L) 109 H Carbon Dioxide (22 - 30 mmol/L) 23 Anion Gap (5 - 16) 12 BUN (9 - 20 mg/dL) 34 H Creatinine (0.7 - 1.2 mg/dL) 1.6 H Estimated GFR (>60 ml/min) 43 L Glucose (65 - 99 mg/dL) 157 H Calcium (8.4 - 10.2 mg/dL) 8.5 Phosphorus (2.5 - 4.5 mg/dL) 3.8 Magnesium (1.6 - 2.3 mg/dL) 1.9 Total Bilirubin (0.2 - 1.3 mg/dL) 0.6 AST (17 - 59 U/L) 35 ALT (21 - 72 U/L) 39 Troponin I (<0.11 ng/ml) 0.01 Albumin (3.5 - 5.0 g/dL) 3.3 L Hematology CBC w Diff NO MAN DIFF REQ WBC (4.8 - 10.8 /CUMM) 13.6 H RBC (4.70 - 6.10 /CUMM) 4.58 L Hgb (14.0 - 18.0 G/DL) 14.3 Hct (42 - 52 %) 41.6 L MCV (80.0 - 94.0 FL) 90.9 MCH (27.0 - 31.0 PG) 31.2 H MCHC (33.0 - 37.0 G/DL) 34.3 RDW (11.5 - 14.5 %) 14.5 Plt Count (130 - 400 /CUMM) MPV (7.4 - 10.4 FL) 9.5 Gran % (42.2 - 75.2 %) 70.3 Lymphocytes % (20.5 - 51.1 %) 15.7 L Monocytes % (1.7 - 9.3 %) 13.5 H Eosinophils % (0 - 5 %) 0.2 Basophils % (0.0 - 2.0 %) 0.3 Absolute Granulocytes (1.4 - 6.5 /CUMM) 9.5 H Absolute Lymphocytes (1.2 - 3.4 /CUMM) 2.1 Absolute Monocytes (0.10 - 0.60 /CUMM) 1.8 H Absolute Eosinophils (0.0 - 0.7 /CUMM) 0 Absolute Basophils (0.0 - 0.2 /CUMM) 0 Toxicology Urine Opiates Screen (>2000 NG/ML) 501 Methadone Screen (>300 NG/ML) 64 Barbiturate Screen (>200 NG/ML) < 60 Ur Phencyclidine Scrn (>25 NG/ML) < 6.00 Amphetamines Screen (>1000 NG/ML) < 100 U Benzodiazepines Scrn (>200 NG/ML) > 800 H Urine Cocaine Screen (>300 NG/ML) > 1000 H Urine Cannabis Screen (>50 NG/ML) 77.80 H Urines Urine Color (YEL,AMB,STR) YEL Urine Clarity (CLEAR) HAZY H Urine pH (5.0 - 8.0) 6.0 Ur Specific [place] (1.001 - 1.035) 1.025 Urine Protein (NEG,<30 MG/DL) 30 H Urine Ketones (NEG) NEG Urine Nitrite (NEG) NEG Urine Bilirubin (NEG) NEG Urine Urobilinogen (0.1 - 1.0 EU/dl) 0.2 Ur Leukocyte Esterase (NEG) NEG Ur Microscopic SEDIMENT EXAMINED Urine RBC (0 - 5 /HPF) 15-25 H Urine WBC (0 - 2 /HPF) 1-3 H Urine Bacteria (NEG/NONE) FEW H Hyaline Casts (0/LPF) 1-3 H Urine Hemoglobin (NEG) MOD H Urine Glucose (N MG/DL) NEG 02/26 1118 Blood Gas pH (7.35 - 7.45 PH) 7.34 L pCO2 (35 - 45 TORR) 37 pO2 (80 - 100 TORR) 295 H HCO3 (21 - 28 MEQ/L) 19 L ABG O2 Sat (Measured) (>96.0 %) 98.0 P-50 (Temp Corrected) N Carboxyhemoglobin (1.5 - 5.0 %) 0.3 L O2 Concentration % 100% Temperature (97.0 - 100.0 FARH) 97.9 Respiration Rate (BPM) 20 O2 Delivery Method VENT Vent Mode VC-AC Expiratory Pressure (CMH2O/P) 5 Tidal Volume (CC) 500 Miscellaneous Phlebotomy Draw Site RIGHT RADIAL Imaging Results: X-rays of the patient's left elbow dated 02/26/2018 show the patient with an impacted slightly displaced and rotated transcondylar load distal humerus fracture without obvious intra-articular extension. The patient is also status post chronic remote radial head and neck resection with calcification ( heterotopic ossification) present within the radial head and neck resection site. There is posterior subluxation of the proximal radius following prior radial head and neck resection that I suspect his chronic. Also noted are some degenerative changes of the humeral-ulnar joint. Assessment/Plan Assessment/Plan Assessment: 67-year-old male with unwitnessed fall followed by witnessed seizure now intubated and sedated. Orthopedically he has an impacted mildly displaced and rotated transcondylar low extra-articular distal humerus fracture with superimposed underlying humeral-ulnar joint osteoarthritis and remote resection of radial head and neck previously with heterotopic ossification and with probable chronic posterior subluxation of the proximal humerus relative to the capitellum. For now the primary issues are the patient's seizure disorder and altered mental status and neurologic condition. Orthopedically with respect to the distal humerus fracture I would ordinarily recommend ORIF of the distal humerus with plate and screw fixation. This would ordinarily be a trauma that I would refer over to one of the traumatologist at [facility] for management. Obviously that is not feasible at the current time given the overall medical picture. In addition to this I would factor in the likelihood that the patient's left elbow function is presumed to be suboptimal as x-rays do show a chronic resection of the radial head and neck with heterotopic ossification at the resection site from the radial head and neck along with probable chronic posterior subluxation of the proximal radius. In addition there is already osteoarthritic changes of the humeral-ulnar joint. With consideration of the overall picture of the elbow likely having suboptimal function due to pre-existing arthritic changes and pre-existing surgery for probable proximal radius trauma along with consideration of the patient's current medical and neurological condition I would recommend that this fracture be managed nonoperatively and allowed to heal in its current mildly displaced and rotated position. Certainly this recommendation can be reconsidered once we have more information on the baseline status of the patient's left elbow symptoms and function within his neurologic status improves and presumably will we can get some additional information from his or family members. If at that time it is felt that there may be some merit for formal ORIF of the distal humerus fracture we would then need to make arrangements to have this done at [facility]. For now the present long-arm splint should be left in place. Ice packs can be applied about the elbow. When appropriate he may need some light oral narcotic pain medication. I did place calls to the patient's Karen as well as to a contact number for his brother. Unfortunately I received voicemail's and did not reach either of these individuals personally. I elected not to leave a voice mail for either individual. If these individuals become available I would certainly be happy to discuss the management options with them. I can be reached through my office at [phone]. Consult Acknowledgment - Thank you for your consult request. Attending MD Review Statement Attending Statement Attending MD Statement: examined this patient
--- NOTE | 2018-02-27 11:33 | Cons- Cardiology ---
General Information and HPI Consulting Request Date of Consult: 02/27/18 Requested By: Debbie ANDERSON,Kb Solano Reason for Consult: Coronary artery disease, atrial fibrillation, bioprosthetic aortic valve replacement, seizure Source of Information: old records Exam Limitations: not alert/orientated History of Present Illness: The patient is a 67-year-old gentleman with a past medical history of coronary artery disease, status post prior bypass surgery, bioprosthetic aortic valve replacement, hypertension hyperlipidemia lymphoma and seizure disorder. He has had prior admissions to our hospital for seizure disorder. He presents today following being found unresponsive, and having a subsequent seizure while in route to the hospital. The patient is followed by a neurologist: Dr Lima Rinaldi at [place] for his seizure disorder, and as per family members has been compliant with his regimen. On the a.m. of arrival, the patient was noted to be of mild mental changes to his ; however, minimally so. The patient was subsequently found unresponsive on the floor and EMS was summoned. On transport to the emergency room, the patient had a seizure episode. Of note, the patient had a work related accident several days ago wherein he sustained injury to his nose and back. From a cardiac standpoint, no reports of chest pains, palpitations nor dyspnea were noted. On arrival, the patient however was in atrial fibrillation (chronic) with a tachycardic response rate and hypertensive. Blood work demonstrated negative results for troponin isoenzymes; however, he was noted to be positive for cocaine, cannabis and benzodiazepines. The patient has well has a history of alcohol abuse; however, serum alcohol on arrival was less than 10. Allergies/Medications Allergies: Coded Allergies: bee venom protein (honey bee) (UNKNOWN 02/26/18) Home Med List: Atorvastatin Calcium 40 MG TABLET 1 TAB PO DAILY CHOLESTEROL (Reported) Divalproex Sodium (Divalproex Sodium ER) 500 MG TAB.ER.24H 2 TAB PO BID SEIZURES (Reported) Duloxetine HCl 60 MG CAPSULE. 1 CAP PO DAILY UNKNOWN (Reported) Metoprolol Tartrate 25 MG TABLET 1 TAB PO BID HEART (Reported) Current Medications: Current Medications Sig/Louise Start time Last Medication Dose Route Stop Time Status Admin Ampicillin Sodium/ 3,000 MG Q6 02/27 1200 AC Sulbactam Sodium IV Sodium Chloride 100 ML Dextrose 25 GM ONCE ONE 02/26 1645 DC 07/16 IV 02/26 1646 1651 Dextrose/Sodium 1,000 ML Q20H 02/26 1715 AC 02/26 Chloride IV 02/27 1314 1805 Etomidate 20 MG ONCE ONE 02/26 1115 DC 07/ IV 02/26 1116 0850 Fentanyl Citrate 50 ML ONCE ONE 02/26 1445 DC 02/26 IV 02/26 1446 1511 Fentanyl Citrate 0 .STK-MED ONE 02/26 1442 DC .ROUTE Heparin Sodium 5,000 UNIT Q8 02/27 0600 AC 02/27 (Porcine) SC 0539 Hydromorphone HCl 1 MG ONCE ONE 02/26 1115 DC IV 02/26 1116 Levetiracetam 1,000 MG Q8 02/26 2200 AC 02/27 N/A 1 UNIT IV 0539 Levetiracetam 1,000 MG Q1H 02/26 1645 DC 02/26 N/A 1 UNIT IV 02/26 1814 1856 Levetiracetam 2,000 MG ONCE ONE 02/26 1615 CAN IV 02/26 1616 Lorazepam 1 MG Q2P PRN 02/27 1115 UNVr IV Lorazepam 1 MG Q4P PRN 02/27 1100 DC IV Lorazepam 1 MG ONCE ONE 02/27 1030 DC 02/27 IV 02/27 1031 1104 Lorazepam 2 MG ONE ONE 02/26 1445 DC 02/26 IV 02/26 1446 1511 Lorazepam 0 .STK-MED ONE 02/26 1438 DC .ROUTE Lorazepam 1 MG ONCE ONE 02/26 1115 DC 02/26 IV 02/26 1116 0850 Midazolam HCl 5 MG ONCE ONE 02/26 1115 DC 02/26 IV 02/26 1116 1117 Non-Formulary 0 SEE ADMIN CRITERIA 02/26 1145 CAN Medication ANY Pantoprazole Sodium 40 MG DAILY 02/26 2035 AC 02/27 IV 0754 Propofol 1,000 MG .STK-MED ONE 02/26 2202 DC IV 02/26 2203 Propofol 1,000 MG Q12H 02/26 1145 AC 02/27 N/A 1 UNIT IV 0543 Sodium Chloride 1,000 ML BOLUS ONE 02/26 1745 DC 02/26 IV 02/26 1944 1805 Sodium Chloride 500 ML BOLUS ONE 02/26 1530 DC IV 02/26 1629 Sodium Chloride 1,000 ML ONCE ONE 02/26 1400 DC 02/26 IV 02/27 0959 1523 Succinylcholine 100 MG ONCE ONE 02/26 1115 DC 02/26 Chloride IV 02/26 1116 0900 Valproate Sodium 1,000 MG BID 02/26 2100 CAN IV Valproate Sodium 1,000 MG BID 02/26 2100 AC 02/27 Sodium Chloride 100 ML IV 0915 Vecuronium [place] 10 MG ONCE ONE 02/26 1115 DC 02/26 IV 02/26 1116 0918 Review of Systems Review of Systems: Review of systems was unable to be obtained secondary to the patient's status Past History Travel History Traveled to [place] past 21 day No Medical History Blood Transfusion Hx: No Neurological: seizure Cardiovascular: hypertension, hyperlipidemia Respiratory: NONE Renal: nephrolithiasis Musculoskeletal: NEUROPATHY FEET & HANDS Cancer(s): hodgkins lymphoma Surgical History Surgical History: CABG, BACK SURGERY, BILATERAL THUMB REPLACMENT AVR Psychosocial History Where Do You Live? Home Services at Home: None Smoking Status: Unknown If Ever Smoked ETOH Use: 5 Exam & Diagnostic Data Vital Signs and I&O Vital Signs Date Time Temp Pulse Resp B/P B/P Pulse O2 O2 Flow FiO2 Mean Ox Delivery Rate 02/27 0833 35 02/27 0800 99 Ventilator 35% 02/27 0800 98.3 93 24 122/90 99 Ventilator 35% 02/27 0551 35 02/27 0400 98 Ventilator 35% 02/27 0329 35 02/27 0115 35 02/27 0000 98 Ventilator 35% 02/27 0000 98.3 92 20 138/96 99 Ventilator 35% 02/26 2240 35 02/26 2208 Ventilator 40% 02/26 2000 100 Ventilator 40% 02/26 1900 40 02/26 1605 50 02/26 1600 100 Ventilator 50% 02/26 1600 97.6 84 20 98/0 99 Ventilator 50% 02/26 1518 87 20 80/54 97 02/26 1445 78 94/64 02/26 1434 50 02/26 1430 91 137/88 02/26 1340 84 20 145/113 100 Ventilator 100% 02/26 1319 97.8 93 18 140/104 100 02/26 1222 88 20 137/102 99 Ventilator 5.0L Intake & Output 02/27 1600 02/27 0800 02/27 0000 02/26 1600 02/26 0800 02/26 0000 Intake Total 639 1645 1550 Output Total 350 300 250 Balance 289 1345 1300 Intake, IV 639 1645 1550 Intake, Oral 0 0 Number 0 0 Bowel Movements Output, 0 Gastric Drainage Output, Urine 350 300 250 Patient 200 lb 200 lb Weight Weight Bed scale Bed scale Measurement Method Physical Exam: General: Intubated, sedated HEENT: Sclera and conjunctiva within normal limits, without xanthelasmas. Neck: Carotids 2+ without bruits. Respiratory: Vented breath sounds, air movement is good, without accessory respiratory muscle use. Heart: Irregularly irregular, 2 out of 6 systolic ejection murmur left sternal border, without JVD. Abdomen: Soft, nontender, no masses, normoactive bowel sounds. Extremities: Without clubbing, cyanosis, without edema. Neuro: Unable to fully assess Skin: Within normal limits without lesions. Psych: Mood and affect: Unable to assess Labs/Kody Results: Laboratory Tests 02/27 02/27 02/26 0805 0410 1740 Blood Gas pH (7.35 - 7.45 PH) 7.45 pCO2 (35 - 45 TORR) 29 L pO2 (80 - 100 TORR) 97 HCO3 (21 - 28 MEQ/L) 20 L ABG O2 Sat (Measured) (>96.0 %) 96.0 Carboxyhemoglobin (1.5 - 5.0 %) 0.8 L O2 Concentration % 35% Respiration Rate (BPM) 20 O2 Delivery Method VENT Vent Mode VC-AC Expiratory Pressure (CMH2O/P) 5 Tidal Volume (CC) 500 Pressure Support (CMH2O/P) 0 Chemistry Sodium (137 - 145 mmol/L) 145 Potassium (3.5 - 5.1 mmol/L) 4.6 Chloride (98 - 107 mmol/L) 112 H Carbon Dioxide (22 - 30 mmol/L) 21 L Anion Gap (5 - 16) 12 BUN (9 - 20 mg/dL) 29 H Creatinine (0.7 - 1.2 mg/dL) 1.3 H Estimated GFR (>60 ml/min) 55 L Glucose (65 - 99 mg/dL) 131 H Lactic Acid (0.7 - 2.1 mmol/L) 1.8 Calcium (8.4 - 10.2 mg/dL) 8.5 Phosphorus (2.5 - 4.5 mg/dL) 3.4 Magnesium (1.6 - 2.3 mg/dL) 1.8 Total Bilirubin (0.2 - 1.3 mg/dL) 0.8 AST (17 - 59 U/L) 34 ALT (21 - 72 U/L) 32 Albumin (3.5 - 5.0 g/dL) 3.2 L Hematology CBC w Diff MAN DIFF ORDERED WBC (4.8 - 10.8 /CUMM) 12.2 H RBC (4.70 - 6.10 /CUMM) 4.46 L Hgb (14.0 - 18.0 G/DL) 14.0 Hct (42 - 52 %) 40.3 L MCV (80.0 - 94.0 FL) 90.3 MCH (27.0 - 31.0 PG) 31.3 H MCHC (33.0 - 37.0 G/DL) 34.7 RDW (11.5 - 14.5 %) 14.5 Plt Count (130 - 400 /CUMM) MPV (7.4 - 10.4 FL) 9.7 Gran % (42.2 - 75.2 %) 67.2 Lymphocytes % (20.5 - 51.1 %) 15.4 L Monocytes % (1.7 - 9.3 %) 17.0 H Eosinophils % (0 - 5 %) 0.2 Basophils % (0.0 - 2.0 %) 0.2 Absolute Granulocytes (1.4 - 6.5 /CUMM) 8.2 H Segmented Neutrophils (42.2 - 75.2 %) 73 Band Neutrophils (0.0 - 5.0 %) 1 Absolute Lymphocytes (1.2 - 3.4 /CUMM) 1.9 Lymphocytes (20.5 - 51.1 %) 16 L Monocytes (1.7 - 9.3 %) 10 H Absolute Monocytes (0.10 - 0.60 /CUMM) 2.1 H Absolute Eosinophils (0.0 - 0.7 /CUMM) 0 Absolute Basophils (0.0 - 0.2 /CUMM) 0 Platelet Estimate (ADEQUATE) Normocytic RBCs VERIFIED Normochromic RBCs VERIFIED Miscellaneous Phlebotomy Draw Site RIGHT RADIAL 02/26 02/26 1740 1206 Chemistry Sodium (137 - 145 mmol/L) 143 Potassium (3.5 - 5.1 mmol/L) 4.6 Chloride (98 - 107 mmol/L) 109 H Carbon Dioxide (22 - 30 mmol/L) 23 Anion Gap (5 - 16) 12 BUN (9 - 20 mg/dL) 34 H Creatinine (0.7 - 1.2 mg/dL) 1.6 H Estimated GFR (>60 ml/min) 43 L Glucose (65 - 99 mg/dL) 157 H Calcium (8.4 - 10.2 mg/dL) 8.5 Phosphorus (2.5 - 4.5 mg/dL) 3.8 Magnesium (1.6 - 2.3 mg/dL) 1.9 Total Bilirubin (0.2 - 1.3 mg/dL) 0.6 AST (17 - 59 U/L) 35 ALT (21 - 72 U/L) 39 Troponin I (<0.11 ng/ml) 0.01 Albumin (3.5 - 5.0 g/dL) 3.3 L Hematology CBC w Diff NO MAN DIFF REQ WBC (4.8 - 10.8 /CUMM) 13.6 H RBC (4.70 - 6.10 /CUMM) 4.58 L Hgb (14.0 - 18.0 G/DL) 14.3 Hct (42 - 52 %) 41.6 L MCV (80.0 - 94.0 FL) 90.9 MCH (27.0 - 31.0 PG) 31.2 H MCHC (33.0 - 37.0 G/DL) 34.3 RDW (11.5 - 14.5 %) 14.5 Plt Count (130 - 400 /CUMM) MPV (7.4 - 10.4 FL) 9.5 Gran % (42.2 - 75.2 %) 70.3 Lymphocytes % (20.5 - 51.1 %) 15.7 L Monocytes % (1.7 - 9.3 %) 13.5 H Eosinophils % (0 - 5 %) 0.2 Basophils % (0.0 - 2.0 %) 0.3 Absolute Granulocytes (1.4 - 6.5 /CUMM) 9.5 H Absolute Lymphocytes (1.2 - 3.4 /CUMM) 2.1 Absolute Monocytes (0.10 - 0.60 /CUMM) 1.8 H Absolute Eosinophils (0.0 - 0.7 /CUMM) 0 Absolute Basophils (0.0 - 0.2 /CUMM) 0 Toxicology Urine Opiates Screen (>2000 NG/ML) 501 Methadone Screen (>300 NG/ML) 64 Barbiturate Screen (>200 NG/ML) < 60 Ur Phencyclidine Scrn (>25 NG/ML) < 6.00 Amphetamines Screen (>1000 NG/ML) < 100 U Benzodiazepines Scrn (>200 NG/ML) > 800 H Urine Cocaine Screen (>300 NG/ML) > 1000 H Urine Cannabis Screen (>50 NG/ML) 77.80 H Urines Urine Color (YEL,AMB,STR) YEL Urine Clarity (CLEAR) HAZY H Urine pH (5.0 - 8.0) 6.0 Ur Specific [place] (1.001 - 1.035) 1.025 Urine Protein (NEG,<30 MG/DL) 30 H Urine Ketones (NEG) NEG Urine Nitrite (NEG) NEG Urine Bilirubin (NEG) NEG Urine Urobilinogen (0.1 - 1.0 EU/dl) 0.2 Ur Leukocyte Esterase (NEG) NEG Ur Microscopic SEDIMENT EXAMINED Urine RBC (0 - 5 /HPF) 15-25 H Urine WBC (0 - 2 /HPF) 1-3 H Urine Bacteria (NEG/NONE) FEW H Hyaline Casts (0/LPF) 1-3 H Urine Hemoglobin (NEG) MOD H Urine Glucose (N MG/DL) NEG 02/26 02/26 1118 1020 Blood Gas pH (7.35 - 7.45 PH) 7.34 L pCO2 (35 - 45 TORR) 37 pO2 (80 - 100 TORR) 295 H HCO3 (21 - 28 MEQ/L) 19 L ABG O2 Sat (Measured) (>96.0 %) 98.0 P-50 (Temp Corrected) N Carboxyhemoglobin (1.5 - 5.0 %) 0.3 L O2 Concentration % 100% Temperature (97.0 - 100.0 FARH) 97.9 Respiration Rate (BPM) 20 O2 Delivery Method VENT Vent Mode VC-AC Expiratory Pressure (CMH2O/P) 5 Tidal Volume (CC) 500 Chemistry Sodium (137 - 145 mmol/L) 145 Potassium (3.5 - 5.1 mmol/L) 4.9 Chloride (98 - 107 mmol/L) 109 H Carbon Dioxide (22 - 30 mmol/L) 23 Anion Gap (5 - 16) 13 BUN (9 - 20 mg/dL) 35 H Creatinine (0.7 - 1.2 mg/dL) 1.6 H Estimated GFR (>60 ml/min) 43 L BUN/Creatinine Ratio (7 - 25 %) 21.9 Glucose (65 - 99 mg/dL) 117 H Lactic Acid (0.7 - 2.1 mmol/L) 1.6 Calcium (8.4 - 10.2 mg/dL) 9.0 Total Bilirubin (0.2 - 1.3 mg/dL) 1.1 AST (17 - 59 U/L) 44 ALT (21 - 72 U/L) 42 Alkaline Phosphatase (< 127 U/L) 62 Troponin I (<0.11 ng/ml) < 0.01 Total Protein (6.3 - 8.2 g/dL) 7.4 Albumin (3.5 - 5.0 g/dL) 4.0 Globulin (1.9 - 4.2 gm/dL) 3.4 Albumin/Globulin Ratio (1.1 - 2.2 %) 1.2 Prolactin (3.7 - 17.9 ng/mL) 16.8 Miscellaneous Phlebotomy Draw Site RIGHT RADIAL Toxicology Phenytoin (10.0 - 20.0 ug/mL) < 3.0 L Valproic Acid (50 - 120 ug/mL) 59.8 Carbamazepine (4.0 - 12.0 ug/mL) < 3.0 L Serum Alcohol (<10 MG/DL) < 10.0 07/16 0844 Coagulation PT (9.4 - 12.5 SEC) 12.0 INR (0.90 - 1.17) 1.10 APTT (25 - 37 SEC) 28 Hematology CBC w Diff NO MAN DIFF REQ WBC (4.8 - 10.8 /CUMM) 10.0 RBC (4.70 - 6.10 /CUMM) 5.15 Hgb (14.0 - 18.0 G/DL) 16.3 Hct (42 - 52 %) 46.7 MCV (80.0 - 94.0 FL) 90.7 MCH (27.0 - 31.0 PG) 31.6 H MCHC (33.0 - 37.0 G/DL) 34.9 RDW (11.5 - 14.5 %) 14.0 Plt Count (130 - 400 /CUMM) MPV (7.4 - 10.4 FL) 10.3 Gran % (42.2 - 75.2 %) 49.9 Lymphocytes % (20.5 - 51.1 %) 33.1 Monocytes % (1.7 - 9.3 %) 16.4 H Eosinophils % (0 - 5 %) 0.3 Basophils % (0.0 - 2.0 %) 0.3 Absolute Granulocytes (1.4 - 6.5 /CUMM) 5.0 Absolute Lymphocytes (1.2 - 3.4 /CUMM) 3.3 Absolute Monocytes (0.10 - 0.60 /CUMM) 1.6 H Absolute Eosinophils (0.0 - 0.7 /CUMM) 0 Absolute Basophils (0.0 - 0.2 /CUMM) 0 Assessment/Plan Assessment/Plan 67-year-old gentleman with a past medical history of coronary artery disease, status post prior bypass surgery, bioprosthetic aortic valve replacement, hypertension hyperlipidemia lymphoma and seizure disorder. He has had prior admissions to our hospital for seizure disorder. He presents today following being found unresponsive, and having a subsequent seizure while in route to the hospital. Seizure disorder: The patient has known seizures and has been followed by a neurologist at [facility]. Possible triggers include his recreational drug use versus possible alcohol withdrawal. As he had a witnessed seizure while monitored by EMS, it is unlikely an underlying cardiac etiology. Atrial fibrillation: Currently suboptimally controlled heart rate, and given his seizure disorder, including recent trauma we will not initiate anticoagulation at this time. Coronary artery disease: Has been stable by report. We will continue to monitor. His home regimen of atorvastatin, metoprolol and aspirin should be restarted when tolerated. Bioprosthetic aortic valve: We will continue to monitor as an outpatient through echocardiography. Thank you for allowing us to participate in the care of your patient. Please do not hesitate to contact us further with any questions. Sincerely, Nile Logan MD [facility] Consult Acknowledgment - Thank you for your consult request.
[2018-02-27 12:00] VITALS: BP 160/110
[2018-02-27 16:00] VITALS: BP 152/100
[2018-02-28] VITALS: BP 100/76
--- NOTE | 2018-02-28 07:28 | PN- Resident CRCU ---
Subjective HPI/CRCU Issues: #Chronic Seizure Disorder, p/b status epilepticus, on keppra and valproate #Acute Resp Distress s/p intubation #PEPPER #Afib #L nondisplaced transcondylear fracture, splinted #Nasal Bone and Septum Fracture 24 Hour Events: Pt seen and examined today - patient is nonresponsive to verbal or noxious stimuli. He is sedated back on propofol dripdue to sustained agitation. Fever overnight of 101.2 noted. Objective Vital Signs & I&O Last 8 Hrs of Vitals and I&O: Laboratory Tests 02/28 02/28 0458 0440 Blood Gas pH (7.35 - 7.45 PH) 7.51 H pCO2 (35 - 45 TORR) 27 L pO2 (80 - 100 TORR) 80 HCO3 (21 - 28 MEQ/L) 21 ABG O2 Sat (Measured) (>96.0 %) 96.0 P-50 (Temp Corrected) Y Carboxyhemoglobin (1.5 - 5.0 %) 0.1 L O2 Concentration % 35% Temperature (97.0 - 100.0 FARH) 96.5 L Respiration Rate (BPM) 20 O2 Delivery Method ESPRIT Vent Mode AC Expiratory Pressure (CMH2O/P) 5 Tidal Volume (CC) 500 Chemistry Sodium (137 - 145 mmol/L) 147 H Potassium (3.5 - 5.1 mmol/L) 4.1 Chloride (98 - 107 mmol/L) 112 H Carbon Dioxide (22 - 30 mmol/L) 22 Anion Gap (5 - 16) 12 BUN (9 - 20 mg/dL) 23 H Creatinine (0.7 - 1.2 mg/dL) 1.3 H Estimated GFR (>60 ml/min) 55 L Glucose (65 - 99 mg/dL) 97 Calcium (8.4 - 10.2 mg/dL) 8.6 Phosphorus (2.5 - 4.5 mg/dL) 3.4 Magnesium (1.6 - 2.3 mg/dL) 2.0 Total Bilirubin (0.2 - 1.3 mg/dL) 1.1 AST (17 - 59 U/L) 21 ALT (21 - 72 U/L) 28 Albumin (3.5 - 5.0 g/dL) 3.0 L Hematology CBC w Diff MAN DIFF ORDERED WBC (4.8 - 10.8 /CUMM) 13.4 H RBC (4.70 - 6.10 /CUMM) 4.45 L Hgb (14.0 - 18.0 G/DL) 13.7 L Hct (42 - 52 %) 40.4 L MCV (80.0 - 94.0 FL) 90.7 MCH (27.0 - 31.0 PG) 30.8 MCHC (33.0 - 37.0 G/DL) 33.9 RDW (11.5 - 14.5 %) 14.2 Plt Count (130 - 400 /CUMM) MPV (7.4 - 10.4 FL) 12.2 H Gran % (42.2 - 75.2 %) 60.4 Lymphocytes % (20.5 - 51.1 %) 18.1 L Monocytes % (1.7 - 9.3 %) 21.3 H Eosinophils % (0 - 5 %) 0 Basophils % (0.0 - 2.0 %) 0.2 Absolute Granulocytes (1.4 - 6.5 /CUMM) 8.1 H Absolute Lymphocytes (1.2 - 3.4 /CUMM) 2.4 Absolute Monocytes (0.10 - 0.60 /CUMM) 2.9 H Absolute Eosinophils (0.0 - 0.7 /CUMM) 0 Absolute Basophils (0.0 - 0.2 /CUMM) 0 Normocytic RBCs VERIFIED Normochromic RBCs VERIFIED Miscellaneous Phlebotomy Draw Site RIGHT RADIAL Vital Signs Date Time Temp Pulse Resp B/P B/P Pulse O2 O2 Flow FiO2 Mean Ox Delivery Rate 02/28 0829 30 07 0800 96 Ventilator 35% 02/28 0800 97.2 91 20 124/86 96 Ventilator 35% 07/18 0611 35 18 0400 95 Ventilator 35% 07/18 0352 35 /18 0059 35 07/18 0000 96 Ventilator 35% 07/18 0000 97.7 97 24 100/76 96 Ventilator 35% 07/17 2211 106 21 131/93 02/27 2159 35 02/27 2000 98 Ventilator 35% 07/17 1859 35 07/ 1830 98.0 / 1737 101.2 07/ 1608 35 07/ 1600 99 Ventilator 35% 07/17 1600 101.2 99 24 152/100 99 Ventilator 35% 07/17 1358 35 07/ 1200 97 Ventilator 35% 07/17 1200 100.4 101 25 160/110 97 Ventilator 35% 02/27 1153 35 Intake & Output 02/28 1600 02/28 0800 02/28 0000 Intake Total 750 683 Output Total 275 430 Balance 475 253 Intake, IV 750 683 Number 0 0 Bowel Movements Output, 50 Gastric Drainage Output, Urine 275 380 Patient 202 lb 202 lb Weight Weight Bed scale Measurement Method Intake & Output 02/28 1600 Intake Total Output Total Balance Patient 202 lb Weight Weight Bed scale Measurement Method Exam General Appearance: sedated, intubated Head: evidence of injury, ecchymosis Neck: normal inspection, supple Respiratory: decreased breath sounds, crackles Cardiovascular: regular rate/rhythm, edema Gastrointestinal: normal bowel sounds, soft, no organomegaly Extremities: normal inspection Cranial Nerves: Sedated - pt not responsive to verbal or noxious stimuli. Current Medications: Current Medications Sig/Louise Start time Last Medication Dose Route Stop Time Status Admin Acetaminophen 1,000 MG ONCE ONE 02/27 1630 DC 02/27 N/A 1 UNIT IV 02/27 1644 1737 Ampicillin Sodium/ 3,000 MG Q6 02/27 1200 AC 02/28 Sulbactam Sodium IV 0646 Sodium Chloride 100 ML Clonidine 0.2 MG ONE ONE 02/27 1800 DC 02/27 PO 02/27 1801 2211 Dextrose/Sodium 1,000 ML Q20H 02/27 1500 DC 02/27 Chloride IV 02/28 1059 1737 Dextrose/Sodium 1,000 ML Q20H 02/26 1715 DC / Chloride IV 02/27 1314 1805 Heparin Sodium 5,000 UNIT Q8 02/27 0600 02/28 (Porcine) SC 0537 Levetiracetam 1,000 MG Q8 02/26 2200 02/28 N/A 1 UNIT IV 0534 Lorazepam 2 MG .STK-MED ONE 02/27 1826 DC IV 02/27 1827 Lorazepam 1 MG Q2P PRN 02/27 1115 AC 02/27 IV 1743 Magnesium Oxide 800 MG ONCE ONE 02/27 1800 DC 02/27 PO 02/27 1801 2212 Pantoprazole Sodium 40 MG DAILY 02/26 2035 02/28 IV 0735 Phosphate 250 MG ONE TIME ONE 02/27 1800 DC 02/27 PO 02/27 1801 2212 Propofol 1,000 MG .STK-MED ONE 02/27 1308 DC IV 02/27 1309 Propofol 1,000 MG Q12H 02/26 1145 DC 02/28 N/A 1 UNIT IV 0204 Valproate Sodium 1,000 MG BID 02/26 2100 AC 02/28 Sodium Chloride 100 ML IV 0937 CXR Findings: 02/28 EXAM TYPE: RAD - XRY-PORTABLE CHEST XRAY EXAMINATION: XR PORTABLE CHEST CLINICAL INFORMATION: Intubated. Aspiration pneumonia. COMPARISON: 02/27/2018 TECHNIQUE: Portable frontal view of the chest was obtained. FINDINGS: There is fracture of the superiormost median sternotomy wire, unchanged. The endotracheal tube terminates 7.7 cm above the seven. A feeding tube is visualized with tip projecting over the stomach, unchanged. The cardiomediastinal silhouette is stable with borderline cardiomegaly. Lung volumes are low but the lungs remain clear without consolidation or evidence of pulmonary edema. No pleural effusion or pneumothorax. The osseous structures where visualized are intact, accounting for nondiagnostic visualization of the spine due to technique. IMPRESSION: Endotracheal tube and feeding tube in similar positions to 02/27/2018. No evidence of acute or progressive pulmonary findings. ECHO Findings: 02/27 FINDINGS Left Ventricle Normal LV chamber size with moderate concentric LVH. The estimated LVEF is 60%. There are no focal wall motion abnormalities. Right Ventricle Grossly normal right ventricle size and function Right Atrium Grossly normal right atrium Left Atrium Mildly dilated left atrial size Mitral Valve Grossly normal-appearing mitral valve leaflets with mild mitral annular calcification. There is trace to mild mitral regurgitation. Aortic Valve Bioprosthetic aortic valve with suboptimal visualization. The mean transvalvular gradient is 22 mmHg. There is no significant aortic insufficiency noted. Tricuspid Valve Grossly normal appearing tricuspid valvular leaflets and function. Pulmonic Valve Normal-appearing pulmonic valve leaflets and function. Pericardium Grossly normal-appearing pericardium with an epicardial fat pad noted Great Vessels Grossly normal great vessels CONCLUSIONS Normal LV chamber size with moderate concentric LVH. The estimated LVEF is 60%. There are no focal wall motion abnormalities. Mildly dilated left atrial size. There is trace to mild mitral regurgitation. Bioprosthetic aortic valve with suboptimal visualization. The mean transvalvular gradient is 22 mmHg. There is no significant aortic insufficiency noted. Impression/Plan Impression/Problem List Impression: 67 y/o M with PMH of chronic seizure disorder on valproate, CAD s/p CABG and bovine aortic valve replacement in 2013, Hodgkins lymphoma, HTN and HLD that was brought to the ED after he was /found to be unresponsiveness. The patient was at his baseline on 02/25. On the ED the patient's respiratory drive was poor and he was intubated. The EKG on the ED showed transient A-fib that converted to SR and reconverted to Afib. He was admitted to the ICU for management of his acute seizure episode p/b status epilepticus s/p intubation. Of note on 02/22, patient had a work related accident where he fell and landed on his face - CXR shows nasal bones and septum fracture. He also presented with a L nondisplaced supracondylear fracture. IMPRESSIONS #Chronic Seizure Disorder, p/b status epilepticus, on keppra and valproate #Acute Resp Distress s/p intubation #PEPPER #Afib #L nondisplaced transcondylear fracture, splinted #Nasal Bone and Septum Fracture #Chronic Seizure Disorder, p/b status epilepticus Pt has a long standing history of seizure disorder, compliant on his valproic acid as evidenced by records and laboratory studies (Urine Valproate in therapeutic range). Urine toxicology showed evidence of cocaine use, could be playing a part into this latest seizure episode. His head CT (02/26) shows a chronic arachnoid cyst on the left anterior middle cranial fossa with some slight interval increase in size. He does have a history of ETOH use and while his serum alcohol was not impressive, a withdrawal induced seizure is still in the differential. Neurology was consulted and EEG showed no seizure activity. -Pt on keppra and valproate -Off propofol #Acute Resp Distress s/p intubation On arrival, pt had poor inspiratory effort and there was concern for worsening status. He was intubated on AC 500/20/5/100% now down to 0.35 FiO2. Patient however remains agitated off propofol, ativan PRN to be given. There is concern for aspiration PNA due to his seizure activity and subsequent difficult intubation; CXR is not impressive for PNA, though respiratory culture growing G( -) Rods. Febrile 101.2 on 02/27 -- IV Unasyn was started -IV ativan PRN as needed -IV Unasyn 3g q6 (DAY #2) #PEPPER Pt with BUN/Cr of 35/1.6 on admit, now down to 1.3/2.. Cause might be prerenal due to improvement upon initiation of IVF. -D5NS @ 50cc/Hr #Afib During his admission, pt's EKG showed atrial fibrillation that converted back to SR and back to Afib. This pattern has repeated during the AM. He has an extensive cardiac history of CAD s/p CABG, bioprosthetic valve replacement, HTN/ HLD with a positive urine tox for cocaine. Cardiology was consulted - home antihtn meds should be restarted when feasible. Echo (02/27) shows an aortic bioprostethic valve with no significant insufficiency though it was not visualized optimally. LVEF is 60%. -Atorvastatin/Metoprolol/ASA to be restarted when possible #L nondisplaced transcondylear fracture, splinted On arrival, a L nondisplaced transcondylear fracture was noted. Pt is currently splinted. Orthopedics were consulted, and as per their recommendation, due to the patient's current status, a nonoperative management is recommended, though can be reconsidered on improvement of his status. Ice packs can be applied around the elbow. -Splint to remain -Ice packs around the elbow if needed FULL CODE DVT PPX: MECH, PHARM NPO Problem List: 1. Status epilepticus Pain Ratin (not assessed- pt sedated) Tomorrow's Labs & Rationales: cxr cbc/icu lab bundle Plan DVT/Prophylaxis: mechanical, pharmacological
[2018-02-28 07:35] LABS: ABSOLUTE BASOPHIL COUNT 0 /CUMM (0.0-0.2); ABSOLUTE EOSINOPHIL COUNT 0 /CUMM (0.0-0.7); ABSOLUTE GRANULOCYTE CT 8.1 /CUMM (1.4-6.5); ABSOLUTE LYMPH COUNT 2.4 /CUMM (1.2-3.4); ABSOLUTE MONOCYTE COUNT 2.9 /CUMM (0.10-0.60); BASOPHIL % 0.2 % (0.0-2.0); EOSINOPHIL % 0 % (0-5); GRANULOCYTE % 60.4 % (42.2-75.2); HEMATOCRIT 40.4 % (42-52); MEAN CORPUSCULAR HGB 30.8 PG (27.0-31.0); MEAN CORPUSCULAR HGB CONC 33.9 G/DL (33.0-37.0); MEAN CORPUSCULAR VOLUME 90.7 FL (80.0-94.0); MEAN PLATELET VOLUME 12.2 FL (7.4-10.4); RBC DISTRIBUTION WIDTH 14.2 % (11.5-14.5); RED BLOOD CELL CT 4.45 /CUMM (4.70-6.10); WHITE BLOOD CELL COUNT 13.4 /CUMM (4.8-10.8)
[2018-02-28 08:00] VITALS: BP 124/86
--- NOTE | 2018-02-28 08:48 | RADIOLOGY REPORT ---
EXAMINATION: XR PORTABLE CHEST CLINICAL INFORMATION: Intubated. Aspiration pneumonia. COMPARISON: 02/27/2018 TECHNIQUE: Portable frontal view of the chest was obtained. FINDINGS: There is fracture of the superiormost median sternotomy wire, unchanged. The endotracheal tube terminates 7.7 cm above the seven. A feeding tube is visualized with tip projecting over the stomach, unchanged. The cardiomediastinal silhouette is stable with borderline cardiomegaly. Lung volumes are low but the lungs remain clear without consolidation or evidence of pulmonary edema. No pleural effusion or pneumothorax. The osseous structures where visualized are intact, accounting for nondiagnostic visualization of the spine due to technique. IMPRESSION: Endotracheal tube and feeding tube in similar positions to 02/27/2018. No evidence of acute or progressive pulmonary findings.
--- NOTE | 2018-02-28 09:42 | PN- Pulmonary ---
See Addendum Subjective HPI/Critical Care Issues: Was febrile last night Continues to be on propofol and sedated No obvious seizure noted Cxr nil acute Sputum gram neg rods Other history per house admin's note Objective Current Medications: Current Medications Sig/Louise Start time Last Medication Dose Route Stop Time Status Admin Acetaminophen 1,000 MG ONCE ONE 02/27 1630 DC 02/27 N/A 1 UNIT IV 02/27 1644 1737 Ampicillin Sodium/ 3,000 MG Q6 02/27 1200 AC 02/28 Sulbactam Sodium IV 0646 Sodium Chloride 100 ML Clonidine 0.2 MG ONE ONE 02/27 1800 DC 02/27 PO 02/27 1801 2211 Dextrose/Sodium 1,000 ML Q20H 02/27 1500 AC 02/27 Chloride IV 02/28 1059 1737 Dextrose/Sodium 1,000 ML Q20H 02/26 1715 DC 02/26 Chloride IV 02/27 1314 1805 Heparin Sodium 5,000 UNIT Q8 02/27 0600 02/28 (Porcine) SC 0537 Levetiracetam 1,000 MG Q8 02/26 2200 02/28 N/A 1 UNIT IV 0534 Lorazepam 2 MG .STK-MED ONE 02/27 1826 DC IV 02/27 1827 Lorazepam 1 MG Q2P PRN 02/27 1115 AC 02/27 IV 1743 Lorazepam 1 MG Q4P PRN 02/27 1100 DC IV Lorazepam 1 MG ONCE ONE 02/27 1030 DC 02/27 IV 02/27 1031 1104 Magnesium Oxide 800 MG ONCE ONE 02/27 1800 DC 02/27 PO 02/27 1801 2212 Pantoprazole Sodium 40 MG DAILY 02/26 2035 02/28 IV 0735 Phosphate 250 MG ONE TIME ONE 02/27 1800 DC 02/27 PO 02/27 1801 2212 Propofol 1,000 MG .STK-MED ONE 02/27 1308 DC IV 02/27 1309 Propofol 1,000 MG Q12H 02/26 1145 02/28 N/A 1 UNIT IV 0204 Valproate Sodium 1,000 MG BID 02/26 2100 AC 02/27 Sodium Chloride 100 ML IV 2119 Vital Signs & I&O Last 24 Hrs of Vitals and I&O: Vital Signs Date Time Temp Pulse Resp B/P B/P Pulse O2 O2 Flow FiO2 Mean Ox Delivery Rate 02/28 0829 30 02/28 0800 96 Ventilator 35% 02/28 0800 97.2 91 20 124/86 96 Ventilator 35% 02/28 0611 35 02/28 0400 95 Ventilator 35% 02/28 0352 35 02/28 0059 35 02/28 0000 96 Ventilator 35% 02/28 0000 97.7 97 24 100/76 96 Ventilator 35% 02/27 2211 106 21 131/93 02/27 2159 35 02/27 2000 98 Ventilator 35% 02/27 1859 35 02/27 1830 98.0 02/27 1737 101.2 02/27 1608 35 02/27 1600 99 Ventilator 35% 02/27 1600 101.2 99 24 152/100 99 Ventilator 35% 02/27 1358 35 02/27 1200 97 Ventilator 35% 02/27 1200 100.4 101 25 160/110 97 Ventilator 35% 02/27 1153 35 Intake & Output 02/28 1600 02/28 0800 02/28 0000 Intake Total 750 683 Output Total 275 430 Balance 475 253 Intake, IV 750 683 Number 0 0 Bowel Movements Output, 50 Gastric Drainage Output, Urine 275 380 Patient 202 lb 202 lb Weight Weight Bed scale Measurement Method Laboratory Tests 02/28 02/28 0458 0440 Blood Gas pH (7.35 - 7.45 PH) 7.51 H pCO2 (35 - 45 TORR) 27 L pO2 (80 - 100 TORR) 80 HCO3 (21 - 28 MEQ/L) 21 ABG O2 Sat (Measured) (>96.0 %) 96.0 P-50 (Temp Corrected) Y Carboxyhemoglobin (1.5 - 5.0 %) 0.1 L O2 Concentration % 35% Temperature (97.0 - 100.0 FARH) 96.5 L Respiration Rate (BPM) 20 O2 Delivery Method ESPRIT Vent Mode AC Expiratory Pressure (CMH2O/P) 5 Tidal Volume (CC) 500 Chemistry Sodium (137 - 145 mmol/L) 147 H Potassium (3.5 - 5.1 mmol/L) 4.1 Chloride (98 - 107 mmol/L) 112 H Carbon Dioxide (22 - 30 mmol/L) 22 Anion Gap (5 - 16) 12 BUN (9 - 20 mg/dL) 23 H Creatinine (0.7 - 1.2 mg/dL) 1.3 H Estimated GFR (>60 ml/min) 55 L Glucose (65 - 99 mg/dL) 97 Calcium (8.4 - 10.2 mg/dL) 8.6 Phosphorus (2.5 - 4.5 mg/dL) 3.4 Magnesium (1.6 - 2.3 mg/dL) 2.0 Total Bilirubin (0.2 - 1.3 mg/dL) 1.1 AST (17 - 59 U/L) 21 ALT (21 - 72 U/L) 28 Albumin (3.5 - 5.0 g/dL) 3.0 L Hematology CBC w Diff MAN DIFF ORDERED WBC (4.8 - 10.8 /CUMM) 13.4 H RBC (4.70 - 6.10 /CUMM) 4.45 L Hgb (14.0 - 18.0 G/DL) 13.7 L Hct (42 - 52 %) 40.4 L MCV (80.0 - 94.0 FL) 90.7 MCH (27.0 - 31.0 PG) 30.8 MCHC (33.0 - 37.0 G/DL) 33.9 RDW (11.5 - 14.5 %) 14.2 Plt Count (130 - 400 /CUMM) MPV (7.4 - 10.4 FL) 12.2 H Gran % (42.2 - 75.2 %) 60.4 Lymphocytes % (20.5 - 51.1 %) 18.1 L Monocytes % (1.7 - 9.3 %) 21.3 H Eosinophils % (0 - 5 %) 0 Basophils % (0.0 - 2.0 %) 0.2 Absolute Granulocytes (1.4 - 6.5 /CUMM) 8.1 H Absolute Lymphocytes (1.2 - 3.4 /CUMM) 2.4 Absolute Monocytes (0.10 - 0.60 /CUMM) 2.9 H Absolute Eosinophils (0.0 - 0.7 /CUMM) 0 Absolute Basophils (0.0 - 0.2 /CUMM) 0 Normocytic RBCs VERIFIED Normochromic RBCs VERIFIED Miscellaneous Phlebotomy Draw Site RIGHT RADIAL 02/27 02/27 02/26 0834 6881 0420 Blood Gas pH (7.35 - 7.45 PH) 7.45 pCO2 (35 - 45 TORR) 29 L pO2 (80 - 100 TORR) 97 HCO3 (21 - 28 MEQ/L) 20 L ABG O2 Sat (Measured) (>96.0 %) 96.0 Carboxyhemoglobin (1.5 - 5.0 %) 0.8 L O2 Concentration % 35% Respiration Rate (BPM) 20 O2 Delivery Method VENT Vent Mode VC-AC Expiratory Pressure (CMH2O/P) 5 Tidal Volume (CC) 500 Pressure Support (CMH2O/P) 0 Chemistry Sodium (137 - 145 mmol/L) 145 Potassium (3.5 - 5.1 mmol/L) 4.6 Chloride (98 - 107 mmol/L) 112 H Carbon Dioxide (22 - 30 mmol/L) 21 L Anion Gap (5 - 16) 12 BUN (9 - 20 mg/dL) 29 H Creatinine (0.7 - 1.2 mg/dL) 1.3 H Estimated GFR (>60 ml/min) 55 L Glucose (65 - 99 mg/dL) 131 H Lactic Acid (0.7 - 2.1 mmol/L) 1.8 Calcium (8.4 - 10.2 mg/dL) 8.5 Phosphorus (2.5 - 4.5 mg/dL) 3.4 Magnesium (1.6 - 2.3 mg/dL) 1.8 Total Bilirubin (0.2 - 1.3 mg/dL) 0.8 AST (17 - 59 U/L) 34 ALT (21 - 72 U/L) 32 Albumin (3.5 - 5.0 g/dL) 3.2 L Hematology CBC w Diff MAN DIFF ORDERED WBC (4.8 - 10.8 /CUMM) 12.2 H RBC (4.70 - 6.10 /CUMM) 4.46 L Hgb (14.0 - 18.0 G/DL) 14.0 Hct (42 - 52 %) 40.3 L MCV (80.0 - 94.0 FL) 90.3 MCH (27.0 - 31.0 PG) 31.3 H MCHC (33.0 - 37.0 G/DL) 34.7 RDW (11.5 - 14.5 %) 14.5 Plt Count (130 - 400 /CUMM) MPV (7.4 - 10.4 FL) 9.7 Gran % (42.2 - 75.2 %) 67.2 Lymphocytes % (20.5 - 51.1 %) 15.4 L Monocytes % (1.7 - 9.3 %) 17.0 H Eosinophils % (0 - 5 %) 0.2 Basophils % (0.0 - 2.0 %) 0.2 Absolute Granulocytes (1.4 - 6.5 /CUMM) 8.2 H Segmented Neutrophils (42.2 - 75.2 %) 73 Band Neutrophils (0.0 - 5.0 %) 1 Absolute Lymphocytes (1.2 - 3.4 /CUMM) 1.9 Lymphocytes (20.5 - 51.1 %) 16 L Monocytes (1.7 - 9.3 %) 10 H Absolute Monocytes (0.10 - 0.60 /CUMM) 2.1 H Absolute Eosinophils (0.0 - 0.7 /CUMM) 0 Absolute Basophils (0.0 - 0.2 /CUMM) 0 Platelet Estimate (ADEQUATE) Normocytic RBCs VERIFIED Normochromic RBCs VERIFIED Miscellaneous Phlebotomy Draw Site RIGHT RADIAL 02/26 02/26 1740 1206 Chemistry Sodium (137 - 145 mmol/L) 143 Potassium (3.5 - 5.1 mmol/L) 4.6 Chloride (98 - 107 mmol/L) 109 H Carbon Dioxide (22 - 30 mmol/L) 23 Anion Gap (5 - 16) 12 BUN (9 - 20 mg/dL) 34 H Creatinine (0.7 - 1.2 mg/dL) 1.6 H Estimated GFR (>60 ml/min) 43 L Glucose (65 - 99 mg/dL) 157 H Calcium (8.4 - 10.2 mg/dL) 8.5 Phosphorus (2.5 - 4.5 mg/dL) 3.8 Magnesium (1.6 - 2.3 mg/dL) 1.9 Total Bilirubin (0.2 - 1.3 mg/dL) 0.6 AST (17 - 59 U/L) 35 ALT (21 - 72 U/L) 39 Troponin I (<0.11 ng/ml) 0.01 Albumin (3.5 - 5.0 g/dL) 3.3 L Hematology CBC w Diff NO MAN DIFF REQ WBC (4.8 - 10.8 /CUMM) 13.6 H RBC (4.70 - 6.10 /CUMM) 4.58 L Hgb (14.0 - 18.0 G/DL) 14.3 Hct (42 - 52 %) 41.6 L MCV (80.0 - 94.0 FL) 90.9 MCH (27.0 - 31.0 PG) 31.2 H MCHC (33.0 - 37.0 G/DL) 34.3 RDW (11.5 - 14.5 %) 14.5 Plt Count (130 - 400 /CUMM) MPV (7.4 - 10.4 FL) 9.5 Gran % (42.2 - 75.2 %) 70.3 Lymphocytes % (20.5 - 51.1 %) 15.7 L Monocytes % (1.7 - 9.3 %) 13.5 H Eosinophils % (0 - 5 %) 0.2 Basophils % (0.0 - 2.0 %) 0.3 Absolute Granulocytes (1.4 - 6.5 /CUMM) 9.5 H Absolute Lymphocytes (1.2 - 3.4 /CUMM) 2.1 Absolute Monocytes (0.10 - 0.60 /CUMM) 1.8 H Absolute Eosinophils (0.0 - 0.7 /CUMM) 0 Absolute Basophils (0.0 - 0.2 /CUMM) 0 Toxicology Urine Opiates Screen (>2000 NG/ML) 501 Methadone Screen (>300 NG/ML) 64 Barbiturate Screen (>200 NG/ML) < 60 Ur Phencyclidine Scrn (>25 NG/ML) < 6.00 Amphetamines Screen (>1000 NG/ML) < 100 U Benzodiazepines Scrn (>200 NG/ML) > 800 H Urine Cocaine Screen (>300 NG/ML) > 1000 H Urine Cannabis Screen (>50 NG/ML) 77.80 H Urines Urine Color (YEL,AMB,STR) YEL Urine Clarity (CLEAR) HAZY H Urine pH (5.0 - 8.0) 6.0 Ur Specific [place] (1.001 - 1.035) 1.025 Urine Protein (NEG,<30 MG/DL) 30 H Urine Ketones (NEG) NEG Urine Nitrite (NEG) NEG Urine Bilirubin (NEG) NEG Urine Urobilinogen (0.1 - 1.0 EU/dl) 0.2 Ur Leukocyte Esterase (NEG) NEG Ur Microscopic SEDIMENT EXAMINED Urine RBC (0 - 5 /HPF) 15-25 H Urine WBC (0 - 2 /HPF) 1-3 H Urine Bacteria (NEG/NONE) FEW H Hyaline Casts (0/LPF) 1-3 H Urine Hemoglobin (NEG) MOD H Urine Glucose (N MG/DL) NEG 02/26 02/26 1118 1020 Blood Gas pH (7.35 - 7.45 PH) 7.34 L pCO2 (35 - 45 TORR) 37 pO2 (80 - 100 TORR) 295 H HCO3 (21 - 28 MEQ/L) 19 L ABG O2 Sat (Measured) (>96.0 %) 98.0 P-50 (Temp Corrected) N Carboxyhemoglobin (1.5 - 5.0 %) 0.3 L O2 Concentration % 100% Temperature (97.0 - 100.0 FARH) 97.9 Respiration Rate (BPM) 20 O2 Delivery Method VENT Vent Mode VC-AC Expiratory Pressure (CMH2O/P) 5 Tidal Volume (CC) 500 Chemistry Sodium (137 - 145 mmol/L) 145 Potassium (3.5 - 5.1 mmol/L) 4.9 Chloride (98 - 107 mmol/L) 109 H Carbon Dioxide (22 - 30 mmol/L) 23 Anion Gap (5 - 16) 13 BUN (9 - 20 mg/dL) 35 H Creatinine (0.7 - 1.2 mg/dL) 1.6 H Estimated GFR (>60 ml/min) 43 L BUN/Creatinine Ratio (7 - 25 %) 21.9 Glucose (65 - 99 mg/dL) 117 H Lactic Acid (0.7 - 2.1 mmol/L) 1.6 Calcium (8.4 - 10.2 mg/dL) 9.0 Total Bilirubin (0.2 - 1.3 mg/dL) 1.1 AST (17 - 59 U/L) 44 ALT (21 - 72 U/L) 42 Alkaline Phosphatase (< 127 U/L) 62 Troponin I (<0.11 ng/ml) < 0.01 Total Protein (6.3 - 8.2 g/dL) 7.4 Albumin (3.5 - 5.0 g/dL) 4.0 Globulin (1.9 - 4.2 gm/dL) 3.4 Albumin/Globulin Ratio (1.1 - 2.2 %) 1.2 Prolactin (3.7 - 17.9 ng/mL) 16.8 Miscellaneous Phlebotomy Draw Site RIGHT RADIAL Toxicology Phenytoin (10.0 - 20.0 ug/mL) < 3.0 L Valproic Acid (50 - 120 ug/mL) 59.8 Carbamazepine (4.0 - 12.0 ug/mL) < 3.0 L Serum Alcohol (<10 MG/DL) < 10.0 Microbiology Date/Time Procedure - Status Source Growth 02/27 1720 Blood Culture - RECD BLOOD 02/27 1650 Blood Culture - RECD BLOOD 02/26 1630 Respiratory Culture - RES LOWER RESP GRAM NEGATIVE RODS 02/26 1630 Gram Stain - RES LOWER RESP 02/26 1630 Surveillance Culture - COMP UPPER RESP 02/26 1630 Surveillance Culture - COMP GI Impression/Plan Impression/Plan Impression/Plan: СЕРГЕЙ, Eomi Chest clear cvs aure, afib abd soft No edema Fracture left Ue Pupils small This is a 67-year-old gentleman with history of hypertension, hyperlipidemia, CABG, previous bovine aortic valve replacement, previous history of Hodgkin's lymphoma in the late with previous chemoradiation therapy leading to significant neuropathy, significant medical marijuana usage, alcohol use on and off, multiple surgeries and chronic pain, previous seizure disorder started in 2014 and since then followed by [facility] seizure clinic (compliant) comes here with * Witnessed seizure activity and a fall, EEG while on propofol no seizure. Patient does have a large arachnoid cyst in his left temporal area with mass effect to the underlying temporal area (appears stable since 2014), Pt with previous history of sig etoh use, marijuana use and now with urine tox positive for cocaine and seizure from cocaine vs withdrawal and other causes including cocaine induced front end driver injury vs small vessel cerebral ishemia. This am did follow commands off propofol * Acute respiratory failure due to seizure activity patient has been intubated. May have aspiration pna as well as he was a difficult intubation. Has gram neg rods in the sputum. Temp with high wbc yesterday * Significant alcohol use by history with probable dts, Marijuana use now with cocaine in the urine (level high), * Gentleman with heart disease with previous CABG and aortic valve replacement with bioprosthetic valve with previous arrythmia, now seems like in afib with controlled ventricular response (fall, nasal fracture with possible intractable seizure with cocaine positive and hence not a candidate for anticoag) * Previous history of nephrolithiasis, now with john * Now sig delirium on and off requiring ativan now on propofol * Nasal fracture and displaced transcondylar fracture of distal left humerus, conservative rx per ortho * 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
--- NOTE | 2018-02-28 10:04 | PN- Cardiology ---
Subjective Subjective: The patient is intubated and sedated A paroxysm of atrial fibrillation with possible aberrant conduction versus nonsustained ventricular tachycardia lasting 2 seconds was noted. The events of the last 24 hours as well as telemetry were reviewed. Review of Systems: Review of systems was unable to be adequately obtained secondary to the patient' s condition Objective Vital Signs and I&Os Vital Signs Date Time Temp Pulse Resp B/P B/P Pulse O2 O2 Flow FiO2 Mean Ox Delivery Rate 02/28 0829 30 02/28 0800 96 Ventilator 35% 02/28 0800 97.2 91 20 124/86 96 Ventilator 35% 02/28 0611 35 02/28 0400 95 Ventilator 35% 02/28 0352 35 02/28 0059 35 02/28 0000 96 Ventilator 35% 02/28 0000 97.7 97 24 100/76 96 Ventilator 35% 02/27 2211 106 21 131/93 02/27 2159 35 02/27 2000 98 Ventilator 35% 02/27 1859 35 02/27 1830 98.0 02/27 1737 101.2 02/27 1608 35 02/27 1600 99 Ventilator 35% 02/27 1600 101.2 99 24 152/100 99 Ventilator 35% 02/27 1358 35 02/27 1200 97 Ventilator 35% 02/27 1200 100.4 101 25 160/110 97 Ventilator 35% 02/27 1153 35 Intake & Output 02/28 1600 02/28 0800 02/28 0000 02/27 1600 02/27 0800 02/27 0000 Intake Total 750 683 756 236 8289 Output Total 275 430 350 350 550 Balance 475 253 895 401 9666 Intake, IV 750 683 778 929 9944 Intake, Oral 0 0 Number 0 0 0 0 0 Bowel Movements Output, 50 0 0 Gastric Drainage Output, Urine 275 380 350 350 550 Patient 202 lb 202 lb 200 lb Weight Weight Bed scale Bed scale Measurement Method Physical Exam: General: Nontoxic, no apparent distress. HEENT: Sclera and conjunctiva within normal limits, without xanthelasmas. Neck: Carotids 2+ without bruits. Respiratory: Scattered rhonchi, air movement is good, without accessory respiratory muscle use. Heart: Irregularly irregular rate and rhythm, without murmurs, without JVD. Abdomen: Soft, nontender, no masses, normoactive bowel sounds. Extremities: Without clubbing, cyanosis, without edema, humeral fracture noted. Neuro: Unable to fully assess Skin: Within normal limits without lesions, ecchymosis noted. Psych: Mood and affect: Unable to fully assess Current Medications: Current Medications Sig/Louise Start time Last Medication Dose Route Stop Time Status Admin Acetaminophen 1,000 MG ONCE ONE 02/27 1630 DC 02/27 N/A 1 UNIT IV 02/27 1644 1737 Ampicillin Sodium/ 3,000 MG Q6 02/27 1200 AC 02/28 Sulbactam Sodium IV 0646 Sodium Chloride 100 ML Clonidine 0.2 MG ONE ONE 02/27 1800 DC 02/27 PO 02/27 1801 2211 Dextrose/Sodium 1,000 ML Q20H 02/27 1500 AC 02/27 Chloride IV 02/28 1059 1737 Dextrose/Sodium 1,000 ML Q20H 02/26 1715 DC 02/26 Chloride IV 02/27 1314 1805 Heparin Sodium 5,000 UNIT Q8 02/27 0600 02/28 (Porcine) SC 0537 Levetiracetam 1,000 MG Q8 02/26 2200 02/28 N/A 1 UNIT IV 0534 Lorazepam 2 MG .STK-MED ONE 02/27 1826 DC IV 02/27 1827 Lorazepam 1 MG Q2P PRN 02/27 1115 AC 02/27 IV 1743 Lorazepam 1 MG Q4P PRN 02/27 1100 DC IV Lorazepam 1 MG ONCE ONE 02/27 1030 DC 02/27 IV 02/27 1031 1104 Magnesium Oxide 800 MG ONCE ONE 02/27 1800 DC 02/27 PO 02/27 1801 2212 Pantoprazole Sodium 40 MG DAILY 02/26 2035 02/28 IV 0735 Phosphate 250 MG ONE TIME ONE 02/27 1800 DC 02/27 PO 02/27 1801 2212 Propofol 1,000 MG .STK-MED ONE 02/27 1308 DC IV 02/27 1309 Propofol 1,000 MG Q12H 02/26 1145 02/28 N/A 1 UNIT IV 0204 Valproate Sodium 1,000 MG BID 02/26 2100 02/28 Sodium Chloride 100 ML IV 0937 Results Last 48 Hrs of Labs/Mics: Laboratory Tests 02/28/18 0458: Anion Gap 12, Estimated GFR 55 L, Glucose 97, Calcium 8.6, Phosphorus 3.4, Magnesium 2.0, Total Bilirubin 1.1, AST 21, ALT 28, Albumin 3.0 L, CBC w Diff MAN DIFF ORDERED, RBC 4.45 L, MCV 90.7, MCH 30.8, MCHC 33.9, RDW 14.2, MPV 12.2 H, Gran % 60.4, Lymphocytes % 18.1 L, Monocytes % 21.3 H, Eosinophils % 0, Basophils % 0.2, Absolute Granulocytes 8.1 H, Absolute Lymphocytes 2.4, Absolute Monocytes 2.9 H, Absolute Eosinophils 0, Absolute Basophils 0, Normocytic RBCs VERIFIED, Normochromic RBCs VERIFIED 02/28/18 0440: pH 7.51 H, pCO2 27 L, pO2 80, HCO3 21, ABG O2 Sat (Measured) 96.0, P-50 (Temp Corrected) Y, Carboxyhemoglobin 0.1 L, O2 Concentration % 35%, Temperature 96.5 L, Respiration Rate 20, O2 Delivery Method ESPRIT, Vent Mode AC, Expiratory Pressure 5, Tidal Volume 500, Phlebotomy Draw Site RIGHT RADIAL 02/27/18 0805: pH 7.45, pCO2 29 L, pO2 97, HCO3 20 L, ABG O2 Sat (Measured) 96.0, Carboxyhemoglobin 0.8 L, O2 Concentration % 35%, Respiration Rate 20, O2 Delivery Method VENT, Vent Mode VC-AC, Expiratory Pressure 5, Tidal Volume 500, Pressure Support 0, Phlebotomy Draw Site RIGHT RADIAL 02/27/18 0410: Anion Gap 12, Estimated GFR 55 L, Glucose 131 H, Calcium 8.5, Phosphorus 3.4, Magnesium 1.8, Total Bilirubin 0.8, AST 34, ALT 32, Albumin 3.2 L, CBC w Diff MAN DIFF ORDERED, RBC 4.46 L, MCV 90.3, MCH 31.3 H, MCHC 34.7, RDW 14.5, MPV 9.7, Gran % 67.2, Lymphocytes % 15.4 L, Monocytes % 17.0 H, Eosinophils % 0.2, Basophils % 0.2, Absolute Granulocytes 8.2 H, Segmented Neutrophils 73, Band Neutrophils 1, Absolute Lymphocytes 1.9, Lymphocytes 16 L, Monocytes 10 H, Absolute Monocytes 2.1 H, Absolute Eosinophils 0, Absolute Basophils 0, Platelet Estimate , Normocytic RBCs VERIFIED, Normochromic RBCs VERIFIED 02/26/18 1740: Lactic Acid 1.8 02/26/18 1740: Anion Gap 12, Estimated GFR 43 L, Glucose 157 H, Calcium 8.5, Phosphorus 3.8, Magnesium 1.9, Total Bilirubin 0.6, AST 35, ALT 39, Troponin I 0.01, Albumin 3.3 L, CBC w Diff NO MAN DIFF REQ, RBC 4.58 L, MCV 90.9, MCH 31.2 H, MCHC 34.3, RDW 14.5, MPV 9.5, Gran % 70.3, Lymphocytes % 15.7 L, Monocytes % 13.5 H, Eosinophils % 0.2, Basophils % 0.3, Absolute Granulocytes 9.5 H, Absolute Lymphocytes 2.1, Absolute Monocytes 1.8 H, Absolute Eosinophils 0, Absolute Basophils 0 02/26/18 1206: Urine Opiates Screen 501, Methadone Screen 64, Barbiturate Screen < 60, Ur Phencyclidine Scrn < 6.00, Amphetamines Screen < 100, U Benzodiazepines Scrn > 800 H, Urine Cocaine Screen > 1000 H, Urine Cannabis Screen 77.80 H, Urine Color YEL, Urine Clarity HAZY H, Urine pH 6.0, Ur Specific [place] 1.025, Urine Protein 30 H, Urine Ketones NEG, Urine Nitrite NEG, Urine Bilirubin NEG, Urine Urobilinogen 0.2, Ur Leukocyte Esterase NEG, Ur Microscopic SEDIMENT EXAMINED, Urine RBC 15-25 H, Urine WBC 1-3 H, Urine Bacteria FEW H, Hyaline Casts 1-3 H, Urine Hemoglobin MOD H, Urine Glucose NEG 02/26/18 1118: pH 7.34 L, pCO2 37, pO2 295 H, HCO3 19 L, ABG O2 Sat (Measured) 98.0, P-50 ( Temp Corrected) N, Carboxyhemoglobin 0.3 L, O2 Concentration % 100%, Temperature 97.9, Respiration Rate 20, O2 Delivery Method VENT, Vent Mode VC-AC, Expiratory Pressure 5, Tidal Volume 500, Phlebotomy Draw Site RIGHT RADIAL 02/26/18 1020: Anion Gap 13, Estimated GFR 43 L, BUN/Creatinine Ratio 21.9, Glucose 117 H, Lactic Acid 1.6, Calcium 9.0, Total Bilirubin 1.1, AST 44, ALT 42, Alkaline Phosphatase 62, Troponin I < 0.01, Total Protein 7.4, Albumin 4.0, Globulin 3.4, Albumin/Globulin Ratio 1.2, Prolactin 16.8, Phenytoin < 3.0 L, Valproic Acid 59.8, Carbamazepine < 3.0 L, Serum Alcohol < 10.0 Microbiology 02/26 1630 UPPER RESP: Surveillance Culture - COMP 02/26 163 GI: Surveillance Culture - COMP Assessment/Plan Assessment/Plan 67-year-old gentleman with a past medical history of coronary artery disease, status post prior bypass surgery, bioprosthetic aortic valve replacement, hypertension hyperlipidemia lymphoma and seizure disorder. He has had prior admissions to our hospital for seizure disorder. He presents today following being found unresponsive, and having a subsequent seizure while in route to the hospital. Seizure disorder: The patient has known seizures and has been followed by a neurologist at [facility]. Possible triggers include his recreational drug use versus possible alcohol withdrawal. As he had a witnessed seizure while monitored by EMS, it is unlikely an underlying cardiac etiology. Atrial fibrillation: Currently suboptimally controlled heart rate, and given his seizure disorder, including recent trauma, with complex humeral fracture requiring surgical repair , we will not initiate anticoagulation at this time. Full anticoagulation may be considered after an improved medical condition and safeguarding from further trauma. Coronary artery disease: Has been stable by report. We will continue to monitor. His home regimen of atorvastatin, metoprolol and aspirin should be restarted when tolerated. Bioprosthetic aortic valve: We will continue to monitor as an outpatient through echocardiography. Continue telemetry? Yes
--- NOTE | 2018-02-28 10:40 | ECHOCARDIOGRAM REPORT ---
ARYA FIGUEROA Age: 67 : 1950 Gender: M Exam Date: 02/27/2018 16:54 Exam Location: [facility] Ht (in): 72 Wt (lb): 200 BSA: 2.16 BP: 160 / 110 Ordering Physician: Gonzalez Yoo MD Referring Physician: Nile Logan M.D. Technologist: Kirsten Pierre DANISHA Room Number: 106 Indications: Afib/flutter Rhythm: Technical Quality: FINDINGS Left Ventricle Normal LV chamber size with moderate concentric LVH. The estimated LVEF is 60%. There are no focal wall motion abnormalities. Right Ventricle Grossly normal right ventricle size and function Right Atrium Grossly normal right atrium Left Atrium Mildly dilated left atrial size Mitral Valve Grossly normal-appearing mitral valve leaflets with mild mitral annular calcification. There is trace to mild mitral regurgitation. Aortic Valve Bioprosthetic aortic valve with suboptimal visualization. The mean transvalvular gradient is 22 mmHg. There is no significant aortic insufficiency noted. Tricuspid Valve Grossly normal appearing tricuspid valvular leaflets and function. Pulmonic Valve Normal-appearing pulmonic valve leaflets and function. Pericardium Grossly normal-appearing pericardium with an epicardial fat pad noted Great Vessels Grossly normal great vessels CONCLUSIONS Normal LV chamber size with moderate concentric LVH. The estimated LVEF is 60%. There are no focal wall motion abnormalities. Mildly dilated left atrial size. There is trace to mild mitral regurgitation. Bioprosthetic aortic valve with suboptimal visualization. The mean transvalvular gradient is 22 mmHg. There is no significant aortic insufficiency noted. Nile Logan M.D. (Electronically Signed) Final Date: 28 February 2018 10:36 MEASUREMENTS (Male / Female) Normal Values 2D ECHO LV Diastolic Diameter PLAX 4.2 cm 4.2 - 5.9 / 3.9 - 5.3 cm LV Systolic Diameter PLAX 2.2 cm 2.1 - 4.0 cm LV Fractional Shortening PLAX 47.6 % 25 - 46 % LV Ejection Fraction 2D Teich 79.4 % IVS Diastolic Thickness 1.6 cm LVPW Diastolic Thickness 1.5 cm LV Relative Wall Thickness 0.7 Aortic Root Diameter 3.7 cm LA Systolic Diameter LX 4.7 cm 3.0 - 4.0 / 2.7 - 3.8 cm Ascending Aorta Diameter 3.9 cm DOPPLER AV Peak Velocity 307.0 cm/s AV Peak Gradient 37.7 mmHg AV Mean Velocity 213.0 cm/s AV Mean Gradient 22.0 mmHg AV Velocity Time Integral 47.2 cm LVOT Peak Velocity 147.0 cm/s LVOT Peak Gradient 8.6 mmHg LVOT Mean Velocity 99.5 cm/s LVOT Mean Gradient 5.0 mmHg LVOT Velocity Time Integral 20.9 cm MV Peak Velocity 143.0 cm/s MV Peak Gradient 8.2 mmHg MV Mean Velocity 75.7 cm/s MV Mean Gradient 3.0 mmHg Mitral E Point Velocity 101.0 cm/s MV PHT Velocity 148.0 cm/s MV Deceleration [place] 1232.0 cm/s MV Pressure Half Time 36.0 ms MV Area PHT 6.1 cm MV Deceleration Time 243.0 ms PV Peak Velocity 86.9 cm/s PV Peak Gradient 3.0 mmHg PV Mean Velocity 64.3 cm/s PV Mean Gradient 2.0 mmHg PV Velocity Time Integral 12.6 cm LV E' Lateral Velocity 20.1 cm/s Mitral E to LV E' Lateral Ratio 5.0 LV E' Septal Velocity 9.8 cm/s Mitral E to LV E' Septal Ratio 10.3
[2018-02-28 12:00] VITALS: BP 152/100
--- NOTE | 2018-02-28 12:36 | CT SCAN REPORT ---
EXAMINATION: CT HEAD WITHOUT CONTRAST CLINICAL INFORMATION: Right upper gaze. Episode of seizure 2 days ago. COMPARISON: 02/26/2018, 02/20/2015 TECHNIQUE: Contiguous axial imaging was performed from the skull base to vertex without intravenous administration of contrast. DLP: 702 mGy-cm FINDINGS: There is a stable CSF attenuation structure in the left perisylvian region/anterior aspect of the left middle cranial fossa compatible with an arachnoid cyst, unchanged in configuration from the prior. There is regional mass effect without shift of the normally midline structures. There is no hemorrhage, edema, shift of the normally midline structures,, or evolving territorial infarct. No new extra-axial collection. Attenuation within the brain parenchyma is within normal limits. The ventricles and sulci appear normal in caliber and configuration. No acute osseous abnormality. Mild mucosal thickening in the ethmoid and sphenoid air cells with some secretions in the left sphenoid air cell. The nasal cavity demonstrates rightward nasal septal deviation with spurring. The mastoid air cells are clear. The vp integration view demonstrates that the patient remains intubated. IMPRESSION: No acute intracranial abnormality. Stable arachnoid cyst in the left middle cranial fossa.
[2018-02-28 16:00] VITALS: BP 150/88
--- NOTE | 2018-02-28 21:41 | Event Note ---
Event Note Event Note: 67 year old male PMH of HTN, HLD, CAD s/p CABG, bovine aortic valve, h/o seizure in ICU for witnessed seizure, fall, and respiratory failure s/p intubation with GNR on sputum culture with new onset cold RLE extremity. Patient unable to provide subjective due to level of sedation and endotracheal intubation. Patient has been in atrial fibrillation in the ICU without anticoagulation because of L humeral fracture and facial trauma. RLE cool to the touch from the knee down, with dopplerable pulses on the R posterior tibial only, no dopplerable pulse on R dorsalis pedis. IV heparin gtt started, arterial ultrasound ordered, vascular surgery consultation placed with call back regarding urgent CTA evaluation.
--- NOTE | 2018-02-28 21:51 | ULTRASOUND REPORT ---
EXAMINATION: NONINVASIVE ASSESSMENT OF THE ARTERIES OF BOTH THE RIGHT LOWER EXTREMITY INTERPRETING VASCULAR \T\ INTERVENTIONAL RADIOLOGIST: Vasyl Watts MD CLINICAL INFORMATION: Atrial fibrillation right lower extremity TECHNIQUE: Bilateral lower extremity duplex ultrasound was performed with velocity measurements and waveform analysis in the common femoral arteries, profunda femoris arteries, proximal mid and distal superficial femoral arteries, popliteal arteries and tibial vessels. This study was performed only at rest. COMPARISON: None FINDINGS: Velocities in cm/sec and phasicity as well as the presence of plaque are reported below. RIGHT LEG: Common Femoral: 41 cm a second Profunda Femoris: 73 cm/s Proximal SFA: 32 cm/second Mid SFA: 47 cm/second Mid to DIstal SFA: OCCLUDED Distal SFA: 26 cm/second Popliteal: 18 cm/second Anterior tibial: 38 cm/s Peroneal: 13 cm/second Posterior tibial: 14 cm/s Dorsalis pedis: Occluded Minimal flow is noted in the infrapopliteal vessels which is monophasic. IMPRESSION: Occlusion of the SFA with very little flow demonstrated distally.
[2018-03-01] VITALS: BP 120/70
[2018-03-01 05:40] LABS: ABSOLUTE BASOPHIL COUNT 0 /CUMM (0.0-0.2); ABSOLUTE EOSINOPHIL COUNT 0 /CUMM (0.0-0.7); ABSOLUTE GRANULOCYTE CT 4.6 /CUMM (1.4-6.5); ABSOLUTE LYMPH COUNT 1.5 /CUMM (1.2-3.4); ABSOLUTE MONOCYTE COUNT 1.6 /CUMM (0.10-0.60); BASOPHIL % 0.1 % (0.0-2.0); EOSINOPHIL % 0.1 % (0-5); HEMATOCRIT 36.8 % (42-52); MEAN CORPUSCULAR HGB 31.5 PG (27.0-31.0); MEAN CORPUSCULAR HGB CONC 34.7 G/DL (33.0-37.0); MEAN CORPUSCULAR VOLUME 90.7 FL (80.0-94.0); RBC DISTRIBUTION WIDTH 14.4 % (11.5-14.5); RED BLOOD CELL CT 4.06 /CUMM (4.70-6.10); WHITE BLOOD CELL COUNT 7.8 /CUMM (4.8-10.8)
[2018-03-01 05:46] LABS: PTT 36 SEC (25-37)
--- NOTE | 2018-03-01 07:37 | PN- Resident CRCU ---
Subjective HPI/CRCU Issues: #Chronic Seizure Disorder, p/b status epilepticus, on keppra and valproate #Acute Resp Distress s/p intubation #R SFA occlusion #PEPPER #Afib #L nondisplaced transcondylear fracture, splinted #Nasal Bone and Septum Fracture 24 Hour Events: Overnight, patient with RLE cool to touch, nonpalpable pulses -- started on IV heparin, arterial ultrasound showed right SFA occlusion; vascular surgery consulted. The patient remains sedated, intubated. Patient responds to noxious stimuli but does not follow command. He is off propofol drip. Objective Vital Signs & I&O Last 8 Hrs of Vitals and I&O: Laboratory Tests 03/01/18 0520: pH 7.48 H, pCO2 30 L, pO2 81, HCO3 22, ABG O2 Sat (Measured) 95.0 L, P-50 ( Temp Corrected) Y, Carboxyhemoglobin 0.3 L, O2 Concentration % 30%, Temperature 97.7, Respiration Rate 20, O2 Delivery Method ESPRIT, Vent Mode AC, Expiratory Pressure 5, Tidal Volume 500, Phlebotomy Draw Site RIGHT RADIAL 03/01/18 0502: Anion Gap 12, Estimated GFR > 60, Glucose 88, Calcium 8.5, Phosphorus 3.1, Magnesium 2.1, Total Bilirubin 0.9, AST 18, ALT 29, Albumin 2.8 L, APTT 36, CBC w Diff MAN DIFF ORDERED, RBC 4.06 L, MCV 90.7, MCH 31.5 H, MCHC 34.7, RDW 14.4 , Gran % 59.0, Lymphocytes % 19.8 L, Monocytes % 21.0 H, Eosinophils % 0.1, Basophils % 0.1, Absolute Granulocytes 4.6, Segmented Neutrophils 68, Band Neutrophils 3, Absolute Lymphocytes 1.5, Lymphocytes 17 L, Monocytes 10 H, Absolute Monocytes 1.6 H, Absolute Eosinophils 0, Absolute Basophils 0, Metamyelocytes 2 H, Normocytic RBCs VERIFIED, Normochromic RBCs VERIFIED Vital Signs Date Time Temp Pulse Resp B/P B/P Pulse O2 O2 Flow FiO2 Mean Ox Delivery Rate 03/01 0900 30 03/01 0800 95 Ventilator 30% 03/01 0800 97.3 90 20 140/88 95 Ventilator 30% 03/01 0552 30 03/01 0400 95 Ventilator 30% 03/01 0321 30 03/01 0053 30 03/01 0000 97 Ventilator 30% 03/01 0000 96.6 82 20 120/70 97 Ventilator 30% / 2223 30 / 2000 97 Ventilator 30% / 1925 30 / 1625 30 / 1600 99 Ventilator 30% / 1600 99.1 95 20 150/88 99 Ventilator 30% 07/ 1409 30 07/ 1200 97 Ventilator 30% / 1200 98.7 96 20 152/100 96 Ventilator 30% 02/28 1130 30 Intake & Output 03/01 1600 / 0800 03/01 0000 Intake Total 1552 740 Output Total 290 280 Balance 1262 460 Intake, IV 1401 740 Intake, Tube 76 Feeding Intake, Tube 75 Irrigant Number 0 0 Bowel Movements Output, Urine 290 280 Patient 202 lb Weight Intake & Output 03/01 1600 Intake Total Output Total Balance Patient 202 lb Weight Exam General Appearance: sedated, intubated, lethargic Head: evidence of injury, ecchymosis Neck: normal inspection, supple Respiratory: normal breath sounds Cardiovascular: edema, nonpalpable R dorsalis/popliteal pulses Gastrointestinal: normal bowel sounds, soft Extremities: R leg cool to touch, capillary refill >2s, L UE Splint noted Cranial Nerves: not assessed, pt sedated. wakes up on noxious stimuli, though does not follow commands Current Medications: Current Medications Sig/Louise Start time Last Medication Dose Route Stop Time Status Admin Ampicillin Sodium/ 3,000 MG Q6 / 1200 AC 03/01 Sulbactam Sodium IV 0619 Sodium Chloride 100 ML Dextrose 25 GM ONCE ONE 02/28 1730 DC 02/28 IV 02/28 1731 1700 Dextrose/Sodium 1,000 ML Q20H 02/27 1500 DC 02/27 Chloride IV 02/28 1059 1737 Dextrose/Water 1,000 ML Q20H /18 2100 AC / IV 03/01 1659 2059 Fentanyl Citrate 50 MCG ONCE ONE 02/28 1415 DC / IV 02/28 1416 1419 Heparin Sodium 25,000 UNIT Q24H / 2045 AC 02/28 (Porcine) IV 2224 Sodium Chloride 500 ML Heparin Sodium 5,000 UNIT Q8 02/27 0600 DC 02/28 (Porcine) SC 1326 Hydromorphone HCl 1 MG Q4 PRN 02/28 2150 AC 03/01 IV 0932 Hydromorphone HCl 1 MG Q4 02/28 1800 DC 02/28 IV 03/01 2201 1742 Lactated Ringer's 1,000 ML Q6H 02/28 2115 DC 02/28 IV 03/01 0314 2126 Levetiracetam 1,000 MG Q8 02/26 2200 AC 03/01 N/A 1 UNIT IV 0551 Lorazepam 1 MG Q2P PRN 02/27 1115 AC 02/28 IV 1642 Pantoprazole Sodium 40 MG DAILY 02/26 2035 AC 03/01 IV 0759 Valproate Sodium 1,000 MG BID 02/26 2100 AC 03/01 Sodium Chloride 100 ML IV 0933 US Findings: 02/28 EXAM TYPE: US - US-DUPLEX SCAN LOWER EXT ARTER EXAMINATION: NONINVASIVE ASSESSMENT OF THE ARTERIES OF BOTH THE RIGHT LOWER EXTREMITY INTERPRETING VASCULAR \T\ INTERVENTIONAL RADIOLOGIST: Vasyl Watts MD CLINICAL INFORMATION: Atrial fibrillation right lower extremity TECHNIQUE: Bilateral lower extremity duplex ultrasound was performed with velocity measurements and waveform analysis in the common femoral arteries, profunda femoris arteries, proximal mid and distal superficial femoral arteries, popliteal arteries and tibial vessels. This study was performed only at rest. COMPARISON: None FINDINGS: Velocities in cm/sec and phasicity as well as the presence of plaque are reported below. RIGHT LEG: Common Femoral: 41 cm a second Profunda Femoris: 73 cm/s Proximal SFA: 32 cm/second Mid SFA: 47 cm/second Mid to DIstal SFA: OCCLUDED Distal SFA: 26 cm/second Popliteal: 18 cm/second Anterior tibial: 38 cm/s Peroneal: 13 cm/second Posterior tibial: 14 cm/s Dorsalis pedis: Occluded Minimal flow is noted in the infrapopliteal vessels which is monophasic. IMPRESSION: Occlusion of the SFA with very little flow demonstrated distally. Impression/Plan Impression/Problem List Impression: 67 y/o M with PMH of chronic seizure disorder on valproate, CAD s/p CABG and bovine aortic valve replacement in 2013, Hodgkins lymphoma, HTN and HLD that was brought to the ED after he was /found to be unresponsiveness. The patient was at his baseline on 02/25. On the ED the patient's respiratory drive was poor and he was intubated. The EKG on the ED showed transient A-fib that converted to SR and reconverted to Afib. He was admitted to the ICU for management of his acute seizure episode p/b status epilepticus s/p intubation. Of note on 02/22, patient had a work related accident where he fell and landed on his face - CXR shows nasal bones and septum fracture. He also presented with a L nondisplaced supracondylear fracture. IMPRESSIONS #Chronic Seizure Disorder, p/b status epilepticus, on keppra and valproate #R SFA Occlusion #Acute Resp Distress s/p intubation #PEPPER #Afib #L nondisplaced transcondylear fracture, splinted #Nasal Bone and Septum Fracture #Chronic Seizure Disorder, p/b status epilepticus Pt has a long standing history of seizure disorder, compliant on his valproic acid as evidenced by records and laboratory studies (Urine Valproate in therapeutic range). Urine toxicology showed evidence of cocaine use, could be playing a part into this latest seizure episode. His head CT (02/26) shows a chronic arachnoid cyst on the left anterior middle cranial fossa with some slight interval increase in size. He does have a history of ETOH use and while his serum alcohol was not impressive, a withdrawal induced seizure is still in the differential. Neurology was consulted and EEG showed no seizure activity, a follow up EEG was done one 02/28. -Pt on keppra and valproate -Off propofol -F/u EEG #R SFA Occlusion Pt has been on a-fib since admission to the ICU - he was off systemic anticoagulation due to his multiple fractures in the nasal area and L nondisplaced transcondylear fracture. An arterial doppler U/S showed a R SFA occlusion. He has now been starting on heparin drip as benefits>risks. Vascular surgery was consulted and a CTA done on 03/01. -F/u CTA -heparin drip #Acute Resp Distress s/p intubation On arrival, pt had poor inspiratory effort and there was concern for worsening status. Weaning trials to be attempted. Patient however remains agitated off propofol, ativan PRN to be given. There is concern for aspiration PNA due to his seizure activity and subsequent difficult intubation; CXR is not impressive for PNA, though respiratory culture growing E. coli and Staph. Febrile 101.2 on , back to being afebrile -- IV Unasyn was started -IV ativan PRN as needed -IV Unasyn 3g q6 (DAY #3) -Weaning trials #PEPPER Pt with BUN/Cr of 35/1.6 on admit, now down to 1.2/22. Likely due to improvement upon initiation of IVF. -D5NS @ 60 cc/hr #Afib pt currently on afib. He has an extensive cardiac history of CAD s/p CABG, bioprosthetic valve replacement, HTN/HLD with a positive urine tox for cocaine. Echo (02/27) shows an aortic bioprostethic valve with no significant insufficiency though it was not visualized optimally. LVEF is 60%. BP is currently controlled, though with some episodes of spikes in BP -- likely related to his withdrawal status, with improvement on administration of ativan. Will continue to monitor #L nondisplaced transcondylear fracture, splinted On arrival, a L nondisplaced transcondylear fracture was noted. Pt is currently splinted. Orthopedics were consulted, and as per their recommendation, due to the patient's current status, a nonoperative management is recommended, though can be reconsidered on improvement of his status. Ice packs can be applied around the elbow. -Splint to remain -Ice packs around the elbow if needed FULL CODE DVT PPX: MECH, PHARM NPO Problem List: 1. Seizure Pain Ratin (not assessed- pt sedated) Tomorrow's Labs & Rationales: CXR CBC ICU LAB BUNDLE Plan DVT/Prophylaxis: mechanical, pharmacological
[2018-03-01 08:00] VITALS: BP 140/88
--- NOTE | 2018-03-01 08:56 | PN- Cardiology ---
See Addendum Subjective Subjective: Telemetry revealed atrial fibrillation. Patient remains intubated. Systolic blood pressure around 130. Sedated. No hemodynamic issues overnight. No arrhythmias overnight. Objective Vital Signs and I&Os Vital Signs Date Time Temp Pulse Resp B/P B/P Pulse O2 O2 Flow FiO2 Mean Ox Delivery Rate 03/01 0800 95 Ventilator 30% 03/01 0800 97.3 90 20 140/88 95 Ventilator 30% 03/01 0552 30 03/01 0400 95 Ventilator 30% 03/01 0321 30 03/01 0053 30 03/01 0000 97 Ventilator 30% 03/01 0000 96.6 82 20 120/70 97 Ventilator 30% 02/28 2223 30 02/28 2000 97 Ventilator 30% 02/28 1925 30 02/28 1625 30 02/28 1600 99 Ventilator 30% 02/28 1600 99.1 95 20 150/88 99 Ventilator 30% 02/28 1409 30 02/28 1200 97 Ventilator 30% 02/28 1200 98.7 96 20 152/100 96 Ventilator 30% 02/28 1130 30 Intake & Output 03/01 1600 03/01 0800 / 0000 /18 1600 /18 0800 02/28 0000 Intake Total 1552 740 667 750 683 Output Total 290 280 300 275 430 Balance 1262 460 367 475 253 Intake, IV 1401 740 667 750 683 Intake, Tube 76 Feeding Intake, Tube 75 Irrigant Number 0 0 0 0 0 Bowel Movements Output, 50 Gastric Drainage Output, Urine 290 280 300 275 380 Patient 202 lb 202 lb Weight Weight Bed scale Measurement Method Physical Exam: On general exam patient intubated. Head normocephalic atraumatic Eyes sclera anicteric conjunctiva showed no pallor extraocular muscles were not examined Neck no jugular venous distention no thyroid masses no palpable nodes Chest lungs are equal air entry bilaterally on respirator Heart irregular rhythm with a ventricular rate around 80 Abdomen soft no organomegaly bowel sounds normal Extremities no clubbing cyanosis or edema Neurological could not be evaluated. Assessment/Plan Assessment/Plan In [id number] gentleman with a past medical history of coronary artery disease, status post prior bypass surgery, bioprosthetic aortic valve replacement, hypertension hyperlipidemia lymphoma and seizure disorder. He has had prior admissions to our hospital for seizure disorder. He presents today following being found unresponsive, and having a subsequent seizure while in route to the hospital. Seizure disorder: The patient has known seizures and has been followed by a neurologist at [facility]. Possible triggers include his recreational drug use versus possible alcohol withdrawal. As he had a witnessed seizure while monitored by EMS, it is unlikely an underlying cardiac etiology. Atrial fibrillation: Currently suboptimally controlled heart rate, and given his seizure disorder, including recent trauma, with complex humeral fracture requiring surgical repair , we will not initiate anticoagulation at this time. Full anticoagulation may be considered after an improved medical condition and safeguarding from further trauma. Coronary artery disease: Has been stable by report. We will continue to monitor. His home regimen of atorvastatin, metoprolol and aspirin should be restarted when tolerated. Bioprosthetic aortic valve: We will continue to monitor as an outpatient through echocardiography.krys this 67-year-old gentleman has a following problems Present condition is mainly related to DTs, withdrawal, cocaine ingestion and care being tailored for these conditions. He has atrial fibrillation and is on anticoagulation because of trauma, seizures, and certainly not in the state. This can be reconsidered as an outpatient. Continue telemetry? Yes
--- NOTE | 2018-03-01 08:56 | Cons- Vascular Surgery ---
General Information and HPI Consulting Request Date of Consult: 03/01/18 Requested By: Debbie ANDERSON,Kb Solano Source of Information: old records History of Present Illness: 67 y/o m w/ hx of lymphoma, CAD s/p cabg and aortic valve replacement, sz disorder who was found down and unnresponsive presumably from a sz. Pt also noted to have a distal left humerus frx. He is currently intubated in the ICU but no on any pressors. Pt was found to be in afib. vascular surgery was consulted as the right foot was noted to be cool. I saw and examined the patient. He is currently minimally responsive and can not be examined for motor senosry function. his right foot is cool compared to the left but there is cap refill and a biphasic pt signal. urine tox posative for cocaine, cannabis. Allergies/Medications Allergies: Coded Allergies: bee venom protein (honey bee) (UNKNOWN 02/26/18) Home Med List: Atorvastatin Calcium 40 MG TABLET 1 TAB PO DAILY CHOLESTEROL (Reported) Divalproex Sodium (Divalproex Sodium ER) 500 MG TAB.ER.24H 2 TAB PO BID SEIZURES (Reported) Duloxetine HCl 60 MG CAPSULE.DR 1 CAP PO DAILY UNKNOWN (Reported) Metoprolol Tartrate 25 MG TABLET 1 TAB PO BID HEART (Reported) Past History Medical History Blood Transfusion Hx: No Neurological: seizure Cardiovascular: hypertension, hyperlipidemia Respiratory: NONE Renal: nephrolithiasis Musculoskeletal: NEUROPATHY FEET & HANDS Cancer(s): hodgkins lymphoma Surgical History Pertinent Surgical History: CABG, BACK SURGERY, BILATERAL THUMB REPLACMENT AVR Psychosocial History Where Do You Live? Home Services at Home: None Smoking Status: Unknown If Ever Smoked ETOH Use: 5 Review of Systems Review of Systems: as above Exam & Diagnostic Data Vital Signs and I&O Vital Signs Date Time Temp Pulse Resp B/P B/P Pulse O2 O2 Flow FiO2 Mean Ox Delivery Rate 03/01 0800 95 Ventilator 30% 03/01 0800 97.3 90 20 140/88 95 Ventilator 30% 03/01 0552 30 03/01 0400 95 Ventilator 30% 03/01 0321 30 03/01 0053 30 03/01 0000 97 Ventilator 30% 03/01 0000 96.6 82 20 120/70 97 Ventilator 30% 02/28 2223 30 02/28 2000 97 Ventilator 30% 02/28 1925 30 02/28 1625 30 02/28 1600 99 Ventilator 30% 02/28 1600 99.1 95 20 150/88 99 Ventilator 30% 02/28 1409 30 02/28 1200 97 Ventilator 30% 02/28 1200 98.7 96 20 152/100 96 Ventilator 30% 02/28 1130 30 Intake & Output 03/01 1600 03/01 0800 03/01 0000 02/28 1600 02/28 0800 02/28 0000 Intake Total 1552 740 667 750 683 Output Total 290 280 300 275 430 Balance 1262 460 367 475 253 Intake, IV 1401 740 667 750 683 Intake, Tube 76 Feeding Intake, Tube 75 Irrigant Number 0 0 0 0 0 Bowel Movements Output, 50 Gastric Drainage Output, Urine 290 280 300 275 380 Patient 202 lb 202 lb Weight Weight Bed scale Measurement Method minimally responsive soft,nt,dn afib right foot cool to the touch. sluggish cap refill. biphasic pt signal. palpable femoral pulse. non signal appreciated in the pop left foot wwp. triphasic dp signal. Assessment/Plan Assessment/Plan 67 y/o m w/ mmp, +drug use, sz disorder currently intubated in the ICU minimally responsive with cool right foot and US showing SFA occlusion. -please continue heparin gtt. at this time benefit of heparin outweighs risk of hematoma in left arm -pt has mildly elevated cre 1.2. I would obtain CTA of Lower extremity. unclear if this is an acute embolism or thrombus of chronic disease. -right leg at this time is perfused and given his overal condition would defer surgical intervention until pt is more stable. -please continue neurovascular checks -will continue to follow. please call with questions. Consult Acknowledgment - Thank you for your consult request.
--- NOTE | 2018-03-01 09:19 | RADIOLOGY REPORT ---
EXAMINATION: XR PORTABLE CHEST CLINICAL INFORMATION: 67-year-old patient currently intubated. Clinical concern for aspiration pneumonia. COMPARISON: Portable chest x-ray of 02/27/2018. TECHNIQUE: Portable frontal view of the chest was obtained. FINDINGS: Again noted is the presence of median sternotomy. There is an endotracheal tube in place with its tip approximately 7.8 cm above the level seven. The tip of the nasogastric tube appears to be high, just below the level of the clavicles. The cardiomediastinal contours are unremarkable unchanged. There is persistent atelectatic changes at both lung bases. There is no evidence of pneumothorax, focal size, or significant pleural effusion. IMPRESSION: 1. Persistent bibasilar atelectasis. 2. No evidence of aspiration pneumonia. 3. The patient's nasogastric tube may be in the proximal esophagus. Repeat examination recommended with better penetration to confirm.
--- NOTE | 2018-03-01 10:09 | PN- CRCU ---
Subjective HPI/Critical Care Issues: Events and data reviewed Pt did have cold lower ext yesterday afternoon and ultrasound consistant with occluded SFA, Vascular aware On heparin Still intubated and sedated Unable to wean yesterday due to tachypnea and desat Objective Current Medications: Current Medications Sig/Louise Start time Last Medication Dose Route Stop Time Status Admin Ampicillin Sodium/ 3,000 MG Q6 02/27 1200 AC 03/01 Sulbactam Sodium IV 0619 Sodium Chloride 100 ML Dextrose 25 GM ONCE ONE 02/28 1730 DC 02/28 IV 02/28 1731 1700 Dextrose/Sodium 1,000 ML Q20H 02/27 1500 DC 02/27 Chloride IV 02/28 1059 1737 Dextrose/Water 1,000 ML Q20H 02/28 2100 AC 02/28 IV 03/01 1659 2059 Fentanyl Citrate 50 MCG ONCE ONE 02/28 1415 DC 02/28 IV 02/28 1416 1419 Heparin Sodium 25,000 UNIT Q24H 02/28 2045 AC 02/28 (Porcine) IV 2224 Sodium Chloride 500 ML Heparin Sodium 5,000 UNIT Q8 02/27 0600 DC 02/28 (Porcine) SC 1326 Hydromorphone HCl 1 MG Q4 PRN 02/28 2150 AC 03/01 IV 0932 Hydromorphone HCl 1 MG Q4 02/28 1800 DC 02/28 IV 03/01 2201 1742 Lactated Ringer's 1,000 ML Q6H 02/28 2115 DC 02/28 IV 03/01 0314 2126 Levetiracetam 1,000 MG Q8 02/26 2200 03/01 N/A 1 UNIT IV 0551 Lorazepam 1 MG Q2P PRN 02/27 1115 AC 02/28 IV 1642 Pantoprazole Sodium 40 MG DAILY 02/26 2035 03/01 IV 0759 Propofol 1,000 MG Q12H / 1145 DC 02/28 N/A 1 UNIT IV 0204 Valproate Sodium 1,000 MG BID 02/26 2100 AC 03/01 Sodium Chloride 100 ML IV 0933 Vital Signs & I&O Last 24 Hrs of Vitals and I&O: Vital Signs Date Time Temp Pulse Resp B/P B/P Pulse O2 O2 Flow FiO2 Mean Ox Delivery Rate 03/01 0900 30 03/01 0800 95 Ventilator 30% 03/01 0800 97.3 90 20 140/88 95 Ventilator 30% 03/01 0552 30 03/01 0400 95 Ventilator 30% 03/01 0321 30 03/01 0053 30 03/01 0000 97 Ventilator 30% 03/01 0000 96.6 82 20 120/70 97 Ventilator 30% 02/28 2223 30 02/28 2000 97 Ventilator 30% 02/28 1925 30 02/28 1625 30 02/28 1600 99 Ventilator 30% 02/28 1600 99.1 95 20 150/88 99 Ventilator 30% 02/28 1409 30 02/28 1200 97 Ventilator 30% 02/28 1200 98.7 96 20 152/100 96 Ventilator 30% 02/28 1130 30 Intake & Output 03/01 1600 03/01 0800 03/01 0000 Intake Total 1552 740 Output Total 290 280 Balance 1262 460 Intake, IV 1401 740 Intake, Tube 76 Feeding Intake, Tube 75 Irrigant Number 0 0 Bowel Movements Output, Urine 290 280 Patient 202 lb Weight Laboratory Tests 03/01 03/01 0520 0502 Blood Gas pH (7.35 - 7.45 PH) 7.48 H pCO2 (35 - 45 TORR) 30 L pO2 (80 - 100 TORR) 81 HCO3 (21 - 28 MEQ/L) 22 ABG O2 Sat (Measured) (>96.0 %) 95.0 L P-50 (Temp Corrected) Y Carboxyhemoglobin (1.5 - 5.0 %) 0.3 L O2 Concentration % 30% Temperature (97.0 - 100.0 FARH) 97.7 Respiration Rate (BPM) 20 O2 Delivery Method ESPRIT Vent Mode AC Expiratory Pressure (CMH2O/P) 5 Tidal Volume (CC) 500 Chemistry Sodium (137 - 145 mmol/L) 148 H Potassium (3.5 - 5.1 mmol/L) 4.0 Chloride (98 - 107 mmol/L) 115 H Carbon Dioxide (22 - 30 mmol/L) 22 Anion Gap (5 - 16) 12 BUN (9 - 20 mg/dL) 22 H Creatinine (0.7 - 1.2 mg/dL) 1.2 Estimated GFR (>60 ml/min) > 60 Glucose (65 - 99 mg/dL) 88 Calcium (8.4 - 10.2 mg/dL) 8.5 Phosphorus (2.5 - 4.5 mg/dL) 3.1 Magnesium (1.6 - 2.3 mg/dL) 2.1 Total Bilirubin (0.2 - 1.3 mg/dL) 0.9 AST (17 - 59 U/L) 18 ALT (21 - 72 U/L) 29 Albumin (3.5 - 5.0 g/dL) 2.8 L Coagulation APTT (25 - 37 SEC) 36 Hematology CBC w Diff MAN DIFF ORDERED WBC (4.8 - 10.8 /CUMM) 7.8 RBC (4.70 - 6.10 /CUMM) 4.06 L Hgb (14.0 - 18.0 G/DL) 12.8 L Hct (42 - 52 %) 36.8 L MCV (80.0 - 94.0 FL) 90.7 MCH (27.0 - 31.0 PG) 31.5 H MCHC (33.0 - 37.0 G/DL) 34.7 RDW (11.5 - 14.5 %) 14.4 Plt Count (130 - 400 /CUMM) Gran % (42.2 - 75.2 %) 59.0 Lymphocytes % (20.5 - 51.1 %) 19.8 L Monocytes % (1.7 - 9.3 %) 21.0 H Eosinophils % (0 - 5 %) 0.1 Basophils % (0.0 - 2.0 %) 0.1 Absolute Granulocytes (1.4 - 6.5 /CUMM) 4.6 Segmented Neutrophils (42.2 - 75.2 %) 68 Band Neutrophils (0.0 - 5.0 %) 3 Absolute Lymphocytes (1.2 - 3.4 /CUMM) 1.5 Lymphocytes (20.5 - 51.1 %) 17 L Monocytes (1.7 - 9.3 %) 10 H Absolute Monocytes (0.10 - 0.60 /CUMM) 1.6 H Absolute Eosinophils (0.0 - 0.7 /CUMM) 0 Absolute Basophils (0.0 - 0.2 /CUMM) 0 Metamyelocytes (0.0 - 1.0 %) 2 H Normocytic RBCs VERIFIED Normochromic RBCs VERIFIED Miscellaneous Phlebotomy Draw Site RIGHT RADIAL 02/28 02/28 6239 0440 Blood Gas pH (7.35 - 7.45 PH) 7.51 H pCO2 (35 - 45 TORR) 27 L pO2 (80 - 100 TORR) 80 HCO3 (21 - 28 MEQ/L) 21 ABG O2 Sat (Measured) (>96.0 %) 96.0 P-50 (Temp Corrected) Y Carboxyhemoglobin (1.5 - 5.0 %) 0.1 L O2 Concentration % 35% Temperature (97.0 - 100.0 FARH) 96.5 L Respiration Rate (BPM) 20 O2 Delivery Method ESPRIT Vent Mode AC Expiratory Pressure (CMH2O/P) 5 Tidal Volume (CC) 500 Chemistry Sodium (137 - 145 mmol/L) 147 H Potassium (3.5 - 5.1 mmol/L) 4.1 Chloride (98 - 107 mmol/L) 112 H Carbon Dioxide (22 - 30 mmol/L) 22 Anion Gap (5 - 16) 12 BUN (9 - 20 mg/dL) 23 H Creatinine (0.7 - 1.2 mg/dL) 1.3 H Estimated GFR (>60 ml/min) 55 L Glucose (65 - 99 mg/dL) 97 Calcium (8.4 - 10.2 mg/dL) 8.6 Phosphorus (2.5 - 4.5 mg/dL) 3.4 Magnesium (1.6 - 2.3 mg/dL) 2.0 Total Bilirubin (0.2 - 1.3 mg/dL) 1.1 AST (17 - 59 U/L) 21 ALT (21 - 72 U/L) 28 Albumin (3.5 - 5.0 g/dL) 3.0 L Hematology CBC w Diff MAN DIFF ORDERED WBC (4.8 - 10.8 /CUMM) 13.4 H RBC (4.70 - 6.10 /CUMM) 4.45 L Hgb (14.0 - 18.0 G/DL) 13.7 L Hct (42 - 52 %) 40.4 L MCV (80.0 - 94.0 FL) 90.7 MCH (27.0 - 31.0 PG) 30.8 MCHC (33.0 - 37.0 G/DL) 33.9 RDW (11.5 - 14.5 %) 14.2 Plt Count (130 - 400 /CUMM) MPV (7.4 - 10.4 FL) 12.2 H Gran % (42.2 - 75.2 %) 60.4 Lymphocytes % (20.5 - 51.1 %) 18.1 L Monocytes % (1.7 - 9.3 %) 21.3 H Eosinophils % (0 - 5 %) 0 Basophils % (0.0 - 2.0 %) 0.2 Absolute Granulocytes (1.4 - 6.5 /CUMM) 8.1 H Absolute Lymphocytes (1.2 - 3.4 /CUMM) 2.4 Absolute Monocytes (0.10 - 0.60 /CUMM) 2.9 H Absolute Eosinophils (0.0 - 0.7 /CUMM) 0 Absolute Basophils (0.0 - 0.2 /CUMM) 0 Normocytic RBCs VERIFIED Normochromic RBCs VERIFIED Miscellaneous Phlebotomy Draw Site RIGHT RADIAL Microbiology Date/Time Procedure - Status Source Growth 02/27 1720 Blood Culture - RES BLOOD 02/27 1650 Blood Culture - RES BLOOD 02/26 1630 Respiratory Culture - RES LOWER RESP ESCHERICHIA COLI STAPH AUREUS 02/26 1630 Gram Stain - RES LOWER RESP 02/26 163 Surveillance Culture - COMP UPPER RESP 02/26 1630 Surveillance Culture - COMP GI Impression/Plan Impression/Plan Impression/Plan: Micro- ecoli and staph echo CONCLUSIONS Normal LV chamber size with moderate concentric LVH. The estimated LVEF is 60%. There are no focal wall motion abnormalities. Mildly dilated left atrial size. There is trace to mild mitral regurgitation. Bioprosthetic aortic valve with suboptimal visualization. The mean transvalvular gradient is 22 mmHg. There is no significant aortic insufficiency noted. Nile Logan M.D. (Electronically Signed) Final Date: 28 February 2018 Art ultrasound IMPRESSION: Occlusion of the SFA with very little flow demonstrated distally. DICTATED BY: Mingo Watts MD DATE/TIME DICTATED:02/28/182142 СЕРГЕЙ, Eomi Chest clear cvs aure, afib abd soft No edema Fracture left Ue Pupils small rt le colder than rt This is a 67-year-old gentleman with history of hypertension, hyperlipidemia, CABG, previous bovine aortic valve replacement, previous history of Hodgkin's lymphoma in the late 90s with previous chemoradiation therapy leading to significant neuropathy, significant medical marijuana usage, alcohol use on and off, multiple surgeries and chronic pain, previous seizure disorder started in 2014 and since then followed by [facility] seizure clinic (compliant) comes here with * Witnessed seizure activity and a fall, EEG while on propofol now has no further seizures. Patient does have a large arachnoid cyst in his left temporal area with mass effect to the underlying temporal area (appears stable since 2015 ), Pt with previous history of sig etoh use, marijuana use and now with urine tox positive for cocaine and seizure from cocaine vs withdrawal and other causes including cocaine induced stave block splitter injury vs small vessel cerebral ishemia. Off propofol still had sig lethergay and rpt ct does not show any new findinings * Acute respiratory failure due to seizure activity patient has been intubated. May have aspiration pna as well as he was a difficult intubation. Ecoli and Staph in the sputum and responding to abx * Ischemic foot rt side due to sfa occlusion - vascular note reviwed and needs CT with ivc. Afib since admission and anticoag started yesterday as the clotting risk out weighs the bleeding risks at this time (anticoag held till yesterday due to sig bleeding risk, ie unstable fracture, altered mental status, recent fall, fracture nasal, recurrent seizures upon admission and hematoma and swelling of the left upper arm from displaced humerus fracture) * Significant alcohol use by history with probable dts, Marijuana use now with cocaine in the urine (level high), * Gentleman with heart disease with previous CABG and aortic valve replacement with bioprosthetic valve with previous arrythmia, * Previous history of nephrolithiasis, now with john (improving) * Now sig delirium on and off requiring ativan now on propofol aswell * Nasal fracture and displaced transcondylar fracture of distal left humerus, conservative rx per ortho * 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
--- NOTE | 2018-03-01 10:49 | ULTRASOUND REPORT ---
EXAMINATION: US DUPLEX UPPER EXTREMITY ARTERY/GRAFT LIMITED, LEFT CLINICAL INFORMATION: 67-year-old patient with a fracture of the left humerus and left upper extremity swelling. Patient is diabetic. COMPARISON: None TECHNIQUE: Duplex Doppler ultrasound was performed of the left arm arteries from the proximal subclavian artery to the distal forearm arteries. FINDINGS: Triphasic waveforms were obtained in the left subclavian and axillary arteries without evidence of focal flow acceleration or occlusions. The brachial, radial, and ulnar arteries are patent but monophasic waveforms were obtained at this level. The peak systolic velocities were reduced in the radial and ulnar arteries measuring 33 cm/s and 51 cm/s respectively. No dissection flap, pseudoaneurysm, or occlusion was identified. IMPRESSION: No focal occlusive disease identified in the left arm arteries. There is monophasic waveforms and decreased velocities obtained in the forearm arteries suggesting distal disease.
[2018-03-01 12:00] VITALS: BP 140/98
--- NOTE | 2018-03-01 13:28 | ELECTROENCEPHALOGRAM REPORT ---
Electroencephalogram Report Electroencephalogram Results Date of service: 02/28/18 Project Planner: Lisa Soto EEG Number: [id number] Test Utilizes: 10-20 system, 21 lead 18 channel digital recording Pertinent Hx/Physical/Neuro Findings/Clin Diagnosis: Follow-up seizure disorder. Now off propofol; remains on fentanyl. Inpatient Medications: Current Medications Sig/Louise Start time Last Medication Dose Route Stop Time Status Admin Ampicillin Sodium/ 3,000 MG Q6 02/27 1200 AC 03/01 Sulbactam Sodium IV 1159 Sodium Chloride 100 ML Dextrose 25 GM ONCE ONE 02/28 1730 DC 02/28 IV 02/28 1731 1700 Dextrose/Water 1,000 ML Q20H 02/28 2100 AC 02/28 IV 03/01 1659 2059 Fentanyl Citrate 50 MCG ONCE ONE 02/28 1415 DC 02/28 IV 02/28 1416 1419 Heparin Sodium 25,000 UNIT Q24H 02/28 2045 AC 02/28 (Porcine) IV 2224 Sodium Chloride 500 ML Heparin Sodium 5,000 UNIT Q8 02/27 0600 DC 02/28 (Porcine) SC 1326 Hydromorphone HCl 1 MG Q4 PRN 02/28 2150 AC 03/01 IV 0932 Hydromorphone HCl 1 MG Q4 02/28 1800 DC 02/28 IV 03/01 2201 1742 Lactated Ringer's 1,000 ML Q6H 02/28 2115 DC / IV 03/01 0314 2126 Levetiracetam 1,000 MG Q8 02/26 2200 AC 03/01 N/A 1 UNIT IV 0551 Lorazepam 1 MG Q2P PRN 02/27 1115 AC 02/28 IV 1642 Pantoprazole Sodium 40 MG DAILY 02/26 2035 AC 03/01 IV 0759 Valproate Sodium 1,000 MG BID 02/26 2100 AC 03/01 Sodium Chloride 100 ML IV 0933 Interpretation: The predominant posterior background rhythm consists of low voltage, poorly modulated 3-5 cps activity. Intermittent higher voltage 2-3 with a second activity is seen anteriorly. Occasional triphasic waves are noted. No focal or paroxysmal features are identified. Hyperventilation could not be performed. Impression: Abnormal EEG due to generalized slowing of the background rhythm consistent with diffuse cerebral dysfunction. No focal or paroxysmal features were identified.
--- NOTE | 2018-03-01 13:45 | RADIOLOGY REPORT ---
EXAMINATION: XR PORTABLE CHEST CLINICAL INFORMATION: Assess position of the patient's nasogastric tube. COMPARISON: Portable chest x-ray performed earlier today. TECHNIQUE: Portable frontal view of the lower chest was obtained. FINDINGS: Patient's nasogastric tube is seen traversing the esophagus with its tip in the gastric antrum. IMPRESSION: Nasogastric tube in satisfactory position.
[2018-03-01 14:03] LABS: PTT 70 SEC (25-37)
[2018-03-01 16:00] VITALS: BP 142/80
--- NOTE | 2018-03-01 16:05 | CT SCAN REPORT ---
EXAMINATION: CT ANGIOGRAPHY OF THE ABDOMEN AND PELVIS WITH BILATERAL LEG RUNOFF RUNOFF CLINICAL INFORMATION: 67-year-old patient presenting with a cool right foot suggesting ischemia. COMPARISON: Duplex Doppler ultrasound of the leg arteries dated 02/28/2018 which demonstrated occlusion of the right superficial femoral artery. DESCRIPTION: Routine abdominal aorta and lower extremity runoff CTA protocol with contrast was performed. 119 mL of Optiray 350 was administered. The images were reviewed and postprocessed on a dedicated 3-D workstation. FINDINGS: Vascular: 1. Mesenteric Arteries:The celiac axis, superior mesenteric artery and inferior mesenteric artery are patent. 2. Renal Arteries: There are single renal arteries present bilaterally without evidence of stenotic lesions. 3. Abdominal Aorta: The abdominal aorta is smooth and normal in caliber without evidence of a dissection flap or penetrating ulcer. 4. Right Lower Extremity Arterial Perfusion: The right common and internal iliac arteries are widely patent. Calcific atherosclerotic changes are noted in the external iliac artery without evidence of a hemodynamically significant stenotic lesion. The common and profunda femoral arteries are patent. There is moderate disease of the proximal superficial femoral artery with a 4 cm segmental occlusion of this vessel at the level of the distal thigh. The popliteal artery is diffusely small in caliber without evidence of a focal stenosis. The anterior tibial artery is heavily calcified occluding at the mid calf with distal reconstitution at the ankle with filling of the dorsalis pedis artery. The peroneal artery is patent to the high ankle. The posterior tibial artery occludes in the proximal calf with faint opacification of the common plantar artery. 5. Left Lower Extremity Arterial Perfusion: The common, internal, and external iliac arteries are patent. The common femoral and profunda femoral arteries are widely patent. There is a moderate diffuse disease of the mid and distal superficial femoral artery. The popliteal artery is patent but occludes at the level of the origin of the tibioperoneal trunk. The anterior tibial artery is patent through its entire length with filling of the dorsalis pedis artery. The peroneal artery is reconstituted proximally and is patent to the ankle. The posterior tibial artery is diffusely calcified with reconstitution of multiple isolated segments. There does appear to be distal reconstitution at the ankle with filling of the common plantar artery. Nonvascular: LOWER CHEST: There is focal consolidation with air bronchograms in the posterior basal segment of the right lower lobe. Atelectatic changes are noted in the left lower lobe. The heart is enlarged, particularly the right heart chambers. There is no evidence of a pleural or pericardial effusion. LIVER, GALLBLADDER, AND BILIARY TREE: The liver is normal in size, shape, and attenuation. No focal hepatic lesion or biliary ductal dilatation is present. The gallbladder is unremarkable with no evidence of radiopaque gallstones, gallbladder wall thickening, or obvious pericholecystic inflammatory changes. PANCREAS: Unremarkable. SPLEEN: Unremarkable. ADRENAL GLANDS: Unremarkable. KIDNEYS AND URETERS: The kidneys are normal in size, shape, and attenuation. No hydronephrosis, hydroureter, or calculi seen. No perinephric stranding. BLADDER: The bladder is decompressed by English catheter with air in the superior portion of its lumen. GASTROINTESTINAL TRACT: The small and large bowel are unremarkable. The appendix is is not discretely seen. There is diverticulosis of the sigmoid colon without evidence of active diverticulitis.. ABDOMINAL WALL: No significant hernia is appreciated. LYMPH NODES: No mesenteric, retroperitoneal, pelvic, or inguinal adenopathy is identified. PELVIC VISCERA: There is no evidence of a pelvic mass, focal collection, or free fluid. OSSEOUS STRUCTURES: Degenerative spondylitic changes are noted in the spine. No focal osteolytic or osteoblastic lesions are appreciated. IMPRESSION: 1. No significant aortoiliac inflow disease on either side. 2. Segmental occlusion of the distal right superficial femoral artery with a small caliber popliteal artery and extensive disease of the anterior tibial and posterior tibial arteries. Only the peroneal artery is patent continuously to the right ankle.
[2018-03-02] VITALS: BP 140/100
[2018-03-02 02:02] LABS: PTT 108 SEC (25-37)
[2018-03-02 05:16] LABS: ABSOLUTE BASOPHIL COUNT 0 /CUMM (0.0-0.2); ABSOLUTE EOSINOPHIL COUNT 0 /CUMM (0.0-0.7); ABSOLUTE GRANULOCYTE CT 3.5 /CUMM (1.4-6.5); ABSOLUTE LYMPH COUNT 1.4 /CUMM (1.2-3.4); ABSOLUTE MONOCYTE COUNT 1.2 /CUMM (0.10-0.60); BASOPHIL % 0.2 % (0.0-2.0); EOSINOPHIL % 0 % (0-5); GRANULOCYTE % 57.5 % (42.2-75.2); HEMATOCRIT 35.1 % (42-52); MEAN CORPUSCULAR HGB 31.4 PG (27.0-31.0); MEAN CORPUSCULAR HGB CONC 34.5 G/DL (33.0-37.0); MEAN CORPUSCULAR VOLUME 90.9 FL (80.0-94.0); MEAN PLATELET VOLUME 11.6 FL (7.4-10.4); RBC DISTRIBUTION WIDTH 14.2 % (11.5-14.5); RED BLOOD CELL CT 3.87 /CUMM (4.70-6.10)
[2018-03-02 05:36] LABS: PLATELET COUNT ND /CUMM (130-400)
--- NOTE | 2018-03-02 07:27 | PN- Resident CRCU ---
Subjective HPI/CRCU Issues: #Chronic Seizure Disorder, p/b status epilepticus, on keppra and valproate #R SFA Occlusion #Acute Resp Distress s/p intubation #PEPPER #Afib #L nondisplaced transcondylear fracture, splinted #Nasal Bone and Septum Fracture 24 Hour Events: pt seen and examined at bedside. He responds to his name at times, other times to noxious stimuli. His R leg feeling warm with better capillary refill. He still does not follow commands. Objective Vital Signs & I&O Last 8 Hrs of Vitals and I&O: Laboratory Tests 03/02/18 1116: Troponin I Pending 03/02/18 0757: APTT 69 H 03/02/18 0512: pH 7.46 H, pCO2 32 L, pO2 86, HCO3 22, ABG O2 Sat (Measured) 96.0, P-50 (Temp Corrected) N, Carboxyhemoglobin 0.8 L, O2 Concentration % 30%, Respiration Rate 20, O2 Delivery Method VENT, Vent Mode AC, Expiratory Pressure 5, Tidal Volume 500, Pressure Support 0, Phlebotomy Draw Site RIGHT RADIAL 03/02/18 0428: Anion Gap 9, Estimated GFR > 60, Glucose 108 H, Calcium 8.3 L, Phosphorus 3.2, Magnesium 2.0, Total Bilirubin 0.7, AST 24, ALT 30, Albumin 2.6 L, CBC w Diff MAN DIFF ORDERED, RBC 3.87 L, MCV 90.9, MCH 31.4 H, MCHC 34.5, RDW 14.2, Plt Count ND, MPV 11.6 H, Gran % 57.5, Lymphocytes % 22.9, Monocytes % 19.4 H, Eosinophils % 0, Basophils % 0.2, Absolute Granulocytes 3.5, Segmented Neutrophils 62, Absolute Lymphocytes 1.4, Lymphocytes 26, Monocytes 12 H, Absolute Monocytes 1.2 H, Absolute Eosinophils 0, Absolute Basophils 0, Platelet Estimate ADEQUATE, Polychromasia 1+, Ovalocytes FEW, Fld Total RBCs Counted 100 03/02/18 0114: APTT 108 *H 03/01/18 1254: APTT 70 H Vital Signs Date Time Temp Pulse Resp B/P B/P Pulse O2 O2 Flow FiO2 Mean Ox Delivery Rate 03/02 1152 30 03/02 1118 79 127/84 03/02 0822 30 03/02 0800 100 Ventilator 30% 03/02 0800 99.3 92 20 152/93 100 Ventilator 30% 03/02 0534 30 03/02 0400 96 Ventilator 30% 03/02 0244 30 03/02 0000 96 Ventilator 30% 03/02 0000 96.8 86 20 140/100 96 Ventilator 30% 03/01 2358 30 03/01 2218 30 03/01 2000 94 Ventilator 30% 03/01 1924 30 03/01 1727 30 03/01 1600 96.4 84 20 142/80 98 Ventilator 30% 03/01 1600 98 Ventilator 30% 03/01 1412 30 Intake & Output 03/02 1600 03/02 0800 03/02 0000 Intake Total 1200 1256 Output Total 340 320 Balance 860 936 Intake, IV 766 886 Intake, Tube 259 185 Feeding Intake, Tube 175 185 Irrigant Number 0 0 Bowel Movements Output, Urine 340 320 Exam General Appearance: intubated, not following commands; does wake up with noxious stimuli Head: evidence of injury, ecchymosis Neck: normal inspection, supple Respiratory: lungs clear Cardiovascular: irregularly irregular Gastrointestinal: normal bowel sounds, soft Extremities: pedal edema, increased warmth on the R leg compared to yesterday. pulses are palpable though faint Skin: ecchymosis Current Medications: Current Medications Sig/Louise Start time Last Medication Dose Route Stop Time Status Admin Ampicillin Sodium/ 3,000 MG Q6 02/27 1200 AC 03/02 Sulbactam Sodium IV 1101 Sodium Chloride 100 ML Aspirin 81 MG DAILY 03/03 0900 AC PO Atorvastatin Calcium 40 MG 1700 03/01 1700 AC 03/01 PO 1642 Dextrose/Sodium 1,000 ML Q20H 03/01 2345 DC 03/01 Chloride IV 2345 Dextrose/Sodium 1,000 ML Q20H 03/01 1415 DC 03/01 Chloride IV 03/02 0654 1600 Dextrose/Water 1,000 ML Q20H 02/28 2100 DC 02/28 IV 03/01 1659 2059 Docusate Sodium 100 MG DAILY NEEDED 03/02 0930 AC 03/02 PO 1057 Heparin Sodium 25,000 UNIT Q24H 02/28 2045 AC 03/02 (Porcine) IV 1011 Sodium Chloride 500 ML Hydromorphone HCl 1 MG Q4 PRN 02/28 2150 DC 03/02 IV 1213 Levetiracetam 1,000 MG Q8 03/02 1400 AC G TUBE Levetiracetam 1,000 MG Q8 02/26 2200 DC 03/02 N/A 1 UNIT IV 0547 Lorazepam 0.5 MG Q2P PRN 03/02 0845 AC IV Lorazepam 1 MG Q2P PRN 02/27 1115 DC 03/02 IV 0812 Metoprolol Tartrate 5 MG Q6 03/02 1800 AC IV Metoprolol Tartrate 5 MG Q6 03/02 1100 DC 03/02 IV 1118 Pantoprazole Sodium 40 MG DAILY 02/26 2035 AC 03/02 IV 0812 Polyethylene Glycol 17 GM DAILY PRN 03/02 0930 AC 03/02 PO 1057 Senna 187 MG AT BEDTIME PRN 03/02 0930 AC 03/02 PO 1057 Valproate Sodium 1,000 MG BID 02/26 2100 DC 03/02 Sodium Chloride 100 ML IV 0821 Valproic Acid 1,000 MG BID 03/02 0900 AC PO CXR Findings: 03/02/ EXAM TYPE: RAD - XRY-PORTABLE CHEST XRAY EXAMINATION: XR PORTABLE CHEST CLINICAL INFORMATION: 67-year-old male status post intubation. COMPARISON: Chest done on 03/01/2018. TECHNIQUE: Portable frontal upright view of the chest was obtained. FINDINGS: The tip of the ET tube is seen approximately 3.6 cm above the level of the seven. The tip of the enteric tube is seen projecting within the left upper quadrant of the abdomen, appears infradiaphragmatic. Low lung volume is present within the right hemithorax. No discrete focal airspace disease is present. The cardiomediastinal silhouette is mildly enlarged, likely secondary to positioning. Postoperative changes of sternotomy are present. The visualized upper abdomen grossly appears unremarkable. IMPRESSION: 1. The tip of the endotracheal tube is located approximately 3.6 cm above the level of the seven. 2. The tip of the enteric tube is seen projecting within the left upper quadrant of the abdomen. 3. Low lung volume within the right hemithorax. No discrete focal airspace disease. Impression/Plan Impression/Problem List Impression: 67 y/o M with PMH of chronic seizure disorder on valproate, CAD s/p CABG and bovine aortic valve replacement in 2013, Hodgkins lymphoma, HTN and HLD that was brought to the ED after he was /found to be unresponsiveness. The patient was at his baseline on 02/25. On the ED the patient's respiratory drive was poor and he was intubated. The EKG on the ED showed transient A-fib that converted to SR and reconverted to Afib. He was admitted to the ICU for management of his acute seizure episode p/b status epilepticus s/p intubation. Of note on 02/22, patient had a work related accident where he fell and landed on his face - CXR shows nasal bones and septum fracture. He also presented with a L nondisplaced supracondylear fracture. IMPRESSIONS #Chronic Seizure Disorder, p/b status epilepticus, on keppra and valproate #R SFA Occlusion #Acute Resp Distress s/p intubation #PEPPER #Afib #L nondisplaced transcondylear fracture, splinted #Nasal Bone and Septum Fracture #Chronic Seizure Disorder, p/b status epilepticus Pt has a long standing history of seizure disorder, compliant on his valproic acid as evidenced by records and laboratory studies (Urine Valproate in therapeutic range). Urine toxicology showed evidence of cocaine use, could be playing a part into this latest seizure episode. His head CT (02/26) shows a chronic arachnoid cyst on the left anterior middle cranial fossa with some slight interval increase in size. He does have a history of ETOH use and while his serum alcohol was not impressive, a withdrawal induced seizure is still in the differential. Neurology was consulted and EEG showed no seizure activity, a follow up EEG was done one 02/28. -Pt on keppra and valproate -Off propofol -F/u EEG #R SFA Occlusion Pt has been on a-fib since admission to the ICU - he was off systemic anticoagulation due to his multiple fractures in the nasal area and L nondisplaced transcondylear fracture. An arterial doppler U/S showed a R SFA occlusion. He has now been starting on heparin drip as benefits>risks. Vascular surgery was consulted and a CTA done on 03/01. -F/u CTA -heparin drip #Acute Resp Distress s/p intubation On arrival, pt had poor inspiratory effort and there was concern for worsening status. Weaning trials to be attempted. Patient however remains agitated off propofol, ativan PRN to be given. There is concern for aspiration PNA due to his seizure activity and subsequent difficult intubation; CXR is not impressive for PNA, though respiratory culture growing E. coli and Staph. Febrile 101.2 on , back to being afebrile -- IV Unasyn was started -IV ativan PRN as needed -IV Unasyn 3g q6 (DAY #4) -Weaning trials #Afib pt currently on afib. He has an extensive cardiac history of CAD s/p CABG, bioprosthetic valve replacement, HTN/HLD with a positive urine tox for cocaine. Echo (02/27) shows an aortic bioprostethic valve with no significant insufficiency though it was not visualized optimally. LVEF is 60%. BP is currently controlled, though with some episodes of spikes in BP -- likely related to his withdrawal status, with improvement on administration of ativan. Cardiology is following. Had a nonsustained wide complex tachycardia during the night. -IV metoprolol 5mg q6 #L nondisplaced transcondylear fracture, splinted On arrival, a L nondisplaced transcondylear fracture was noted. Pt is currently splinted. Orthopedics were consulted, and as per their recommendation, due to the patient's current status, a nonoperative management is recommended, though can be reconsidered on improvement of his status. Ice packs can be applied around the elbow. As per vascular surgery's recommendation, a CTA of L arm was ordered to assess for brachial artery injury. -Splint to remain -Ice packs around the elbow if needed -F/u CTA L UE #PEPPER, resolved Pt with BUN/Cr of 35/1.6 on admit, now down to 1.2/22. Likely due to improvement upon initiation of IVF. FULL CODE DVT PPX: MECH, PHARM TUBE FEEDS Jevity 1.2 Problem List: 1. Seizure Pain Ratin (not assessed) Tomorrow's Labs & Rationales: cbc cxr icu lab bundle Plan DVT/Prophylaxis: mechanical, pharmacological
[2018-03-02 08:00] VITALS: BP 152/93
--- NOTE | 2018-03-02 08:43 | RADIOLOGY REPORT ---
EXAMINATION: XR PORTABLE CHEST CLINICAL INFORMATION: 67-year-old male status post intubation. COMPARISON: Chest done on 03/01/2018. TECHNIQUE: Portable frontal upright view of the chest was obtained. FINDINGS: The tip of the ET tube is seen approximately 3.6 cm above the level of the seven. The tip of the enteric tube is seen projecting within the left upper quadrant of the abdomen, appears infradiaphragmatic. Low lung volume is present within the right hemithorax. No discrete focal airspace disease is present. The cardiomediastinal silhouette is mildly enlarged, likely secondary to positioning. Postoperative changes of sternotomy are present. The visualized upper abdomen grossly appears unremarkable. IMPRESSION: 1. The tip of the endotracheal tube is located approximately 3.6 cm above the level of the seven. 2. The tip of the enteric tube is seen projecting within the left upper quadrant of the abdomen. 3. Low lung volume within the right hemithorax. No discrete focal airspace disease.
--- NOTE | 2018-03-02 08:54 | PN- CRCU ---
See Addendum Subjective HPI/Critical Care Issues: Doing about the same Restless and receives ativan at times Does not follow commands Moves all limbs Lower ext appears to be perfusing well Objective Current Medications: Current Medications Sig/Louise Start time Last Medication Dose Route Stop Time Status Admin Ampicillin Sodium/ 3,000 MG Q6 02/27 1200 AC 03/02 Sulbactam Sodium IV 0608 Sodium Chloride 100 ML Atorvastatin Calcium 40 MG 1700 03/01 1700 AC 03/01 PO 1642 Dextrose/Sodium 1,000 ML Q20H 03/01 2345 AC 03/01 Chloride IV 2345 Dextrose/Sodium 1,000 ML Q20H 03/01 1415 DC 03/01 Chloride IV 03/02 0654 1600 Dextrose/Water 1,000 ML Q20H 02/28 2100 DC 02/28 IV 03/01 1659 2059 Heparin Sodium 25,000 UNIT Q24H 02/28 2045 AC 03/01 (Porcine) IV 1656 Sodium Chloride 500 ML Hydromorphone HCl 1 MG Q4 PRN 02/28 2150 AC 03/02 IV 0812 Levetiracetam 1,000 MG Q8 02/26 2200 AC 03/02 N/A 1 UNIT IV 0547 Lorazepam 0.5 MG Q2P PRN 03/02 0845 UNVr IV Lorazepam 1 MG Q2P PRN 02/27 1115 DC 03/02 IV 0812 Pantoprazole Sodium 40 MG DAILY 02/26 2035 AC 03/02 IV 0812 Valproate Sodium 1,000 MG BID 02/26 2100 AC 03/02 Sodium Chloride 100 ML IV 0821 Vital Signs & I&O Last 24 Hrs of Vitals and I&O: Vital Signs Date Time Temp Pulse Resp B/P B/P Pulse O2 O2 Flow FiO2 Mean Ox Delivery Rate 03/02 0822 30 03/02 0534 30 03/02 0400 96 Ventilator 30% 03/02 0244 30 03/02 0000 96 Ventilator 30% 03/02 0000 96.8 86 20 140/100 96 Ventilator 30% 03/01 2358 30 03/01 2218 30 03/01 2000 94 Ventilator 30% 03/01 1924 30 03/01 1727 30 03/01 1600 96.4 84 20 142/80 98 Ventilator 30% 03/01 1600 98 Ventilator 30% 03/01 1412 30 07/19 1213 30 03/01 1200 98 Ventilator 30% 03/01 1200 97.1 84 20 140/98 98 Ventilator 30% 03/01 0900 30 Intake & Output 03/02 1600 03/02 0800 03/02 0000 Intake Total 1200 1256 Output Total 340 320 Balance 860 936 Intake, IV 766 886 Intake, Tube 259 185 Feeding Intake, Tube 175 185 Irrigant Number 0 0 Bowel Movements Output, Urine 340 320 Laboratory Tests 03/02 03/02 0757 0512 Blood Gas pH (7.35 - 7.45 PH) 7.46 H pCO2 (35 - 45 TORR) 32 L pO2 (80 - 100 TORR) 86 HCO3 (21 - 28 MEQ/L) 22 ABG O2 Sat (Measured) (>96.0 %) 96.0 P-50 (Temp Corrected) N Carboxyhemoglobin (1.5 - 5.0 %) 0.8 L O2 Concentration % 30% Respiration Rate (BPM) 20 O2 Delivery Method VENT Vent Mode AC Expiratory Pressure (CMH2O/P) 5 Tidal Volume (CC) 500 Pressure Support (CMH2O/P) 0 Coagulation APTT Pending Miscellaneous Phlebotomy Draw Site RIGHT RADIAL 03/02 03/02 03/01 0428 0114 1254 Chemistry Sodium (137 - 145 mmol/L) 146 H Potassium (3.5 - 5.1 mmol/L) 3.8 Chloride (98 - 107 mmol/L) 114 H Carbon Dioxide (22 - 30 mmol/L) 24 Anion Gap (5 - 16) 9 BUN (9 - 20 mg/dL) 26 H Creatinine (0.7 - 1.2 mg/dL) 1.1 Estimated GFR (>60 ml/min) > 60 Glucose (65 - 99 mg/dL) 108 H Calcium (8.4 - 10.2 mg/dL) 8.3 L Phosphorus (2.5 - 4.5 mg/dL) 3.2 Magnesium (1.6 - 2.3 mg/dL) 2.0 Total Bilirubin (0.2 - 1.3 mg/dL) 0.7 AST (17 - 59 U/L) 24 ALT (21 - 72 U/L) 30 Albumin (3.5 - 5.0 g/dL) 2.6 L Coagulation APTT (25 - 37 SEC) 108 *H 70 H Hematology CBC w Diff MAN DIFF ORDERED WBC (4.8 - 10.8 /CUMM) 6.0 RBC (4.70 - 6.10 /CUMM) 3.87 L Hgb (14.0 - 18.0 G/DL) 12.1 L Hct (42 - 52 %) 35.1 L MCV (80.0 - 94.0 FL) 90.9 MCH (27.0 - 31.0 PG) 31.4 H MCHC (33.0 - 37.0 G/DL) 34.5 RDW (11.5 - 14.5 %) 14.2 Plt Count (130 - 400 /CUMM) ND MPV (7.4 - 10.4 FL) 11.6 H Gran % (42.2 - 75.2 %) 57.5 Lymphocytes % (20.5 - 51.1 %) 22.9 Monocytes % (1.7 - 9.3 %) 19.4 H Eosinophils % (0 - 5 %) 0 Basophils % (0.0 - 2.0 %) 0.2 Absolute Granulocytes (1.4 - 6.5 /CUMM) 3.5 Segmented Neutrophils (42.2 - 75.2 %) 62 Absolute Lymphocytes (1.2 - 3.4 /CUMM) 1.4 Lymphocytes (20.5 - 51.1 %) 26 Monocytes (1.7 - 9.3 %) 12 H Absolute Monocytes (0.10 - 0.60 /CUMM) 1.2 H Absolute Eosinophils (0.0 - 0.7 /CUMM) 0 Absolute Basophils (0.0 - 0.2 /CUMM) 0 Platelet Estimate (ADEQUATE) ADEQUATE Polychromasia 1+ Ovalocytes FEW Other Body Source Fld Total RBCs Counted (%) 100 03/01 03/01 0520 0502 Blood Gas pH (7.35 - 7.45 PH) 7.48 H pCO2 (35 - 45 TORR) 30 L pO2 (80 - 100 TORR) 81 HCO3 (21 - 28 MEQ/L) 22 ABG O2 Sat (Measured) (>96.0 %) 95.0 L P-50 (Temp Corrected) Y Carboxyhemoglobin (1.5 - 5.0 %) 0.3 L O2 Concentration % 30% Temperature (97.0 - 100.0 FARH) 97.7 Respiration Rate (BPM) 20 O2 Delivery Method ESPRIT Vent Mode AC Expiratory Pressure (CMH2O/P) 5 Tidal Volume (CC) 500 Chemistry Sodium (137 - 145 mmol/L) 148 H Potassium (3.5 - 5.1 mmol/L) 4.0 Chloride (98 - 107 mmol/L) 115 H Carbon Dioxide (22 - 30 mmol/L) 22 Anion Gap (5 - 16) 12 BUN (9 - 20 mg/dL) 22 H Creatinine (0.7 - 1.2 mg/dL) 1.2 Estimated GFR (>60 ml/min) > 60 Glucose (65 - 99 mg/dL) 88 Calcium (8.4 - 10.2 mg/dL) 8.5 Phosphorus (2.5 - 4.5 mg/dL) 3.1 Magnesium (1.6 - 2.3 mg/dL) 2.1 Total Bilirubin (0.2 - 1.3 mg/dL) 0.9 AST (17 - 59 U/L) 18 ALT (21 - 72 U/L) 29 Albumin (3.5 - 5.0 g/dL) 2.8 L Coagulation APTT (25 - 37 SEC) 36 Hematology CBC w Diff MAN DIFF ORDERED WBC (4.8 - 10.8 /CUMM) 7.8 RBC (4.70 - 6.10 /CUMM) 4.06 L Hgb (14.0 - 18.0 G/DL) 12.8 L Hct (42 - 52 %) 36.8 L MCV (80.0 - 94.0 FL) 90.7 MCH (27.0 - 31.0 PG) 31.5 H MCHC (33.0 - 37.0 G/DL) 34.7 RDW (11.5 - 14.5 %) 14.4 Plt Count (130 - 400 /CUMM) Gran % (42.2 - 75.2 %) 59.0 Lymphocytes % (20.5 - 51.1 %) 19.8 L Monocytes % (1.7 - 9.3 %) 21.0 H Eosinophils % (0 - 5 %) 0.1 Basophils % (0.0 - 2.0 %) 0.1 Absolute Granulocytes (1.4 - 6.5 /CUMM) 4.6 Segmented Neutrophils (42.2 - 75.2 %) 68 Band Neutrophils (0.0 - 5.0 %) 3 Absolute Lymphocytes (1.2 - 3.4 /CUMM) 1.5 Lymphocytes (20.5 - 51.1 %) 17 L Monocytes (1.7 - 9.3 %) 10 H Absolute Monocytes (0.10 - 0.60 /CUMM) 1.6 H Absolute Eosinophils (0.0 - 0.7 /CUMM) 0 Absolute Basophils (0.0 - 0.2 /CUMM) 0 Metamyelocytes (0.0 - 1.0 %) 2 H Normocytic RBCs VERIFIED Normochromic RBCs VERIFIED Miscellaneous Phlebotomy Draw Site RIGHT RADIAL Microbiology Date/Time Procedure - Status Source Growth 02/28 1720 Blood Culture - RES BLOOD 02/27 1650 Blood Culture - RES BLOOD Impression/Plan Impression/Plan Impression/Plan: Micro- ecoli and staph echo CONCLUSIONS Normal LV chamber size with moderate concentric LVH. The estimated LVEF is 60%. There are no focal wall motion abnormalities. Mildly dilated left atrial size. There is trace to mild mitral regurgitation. Bioprosthetic aortic valve with suboptimal visualization. The mean transvalvular gradient is 22 mmHg. There is no significant aortic insufficiency noted. Nile Logan M.D. (Electronically Signed) Final Date: 28 February 2018 Art ultrasound IMPRESSION: Occlusion of the SFA with very little flow demonstrated distally. CT run off 03/01 IMPRESSION: 1. No significant aortoiliac inflow disease on either side. 2. Segmental occlusion of the distal right superficial femoral artery with a small caliber popliteal artery and extensive disease of the anterior tibial and posterior tibial arteries. Only the peroneal artery is patent continuously to the right ankle. DICTATED BY: Tin Clayton MD DATE/TIME DICTATED:03/01/181518 Arterial ultrasound left UE IMPRESSION: No focal occlusive disease identified in the left arm arteries. There is monophasic waveforms and decreased velocities obtained in the forearm arteries suggesting distal disease. DICTATED BY: Tin Clayton MD DATE/TIME DICTATED:03/01/181032 Cxr nil acute СЕРГЕЙ, Eomi Chest clear cvs aure, afib abd soft No edema Fracture left Ue Pupils small rt le colder than rt much improved since yesterday Rest less and nonpurposeful movements This is a 67-year-old gentleman with history of hypertension, hyperlipidemia, CABG, previous bovine aortic valve replacement, previous history of Hodgkin's lymphoma in the late 90s with previous chemoradiation therapy leading to significant neuropathy, significant medical marijuana usage, alcohol use on and off, multiple surgeries and chronic pain, previous seizure disorder started in 2014 and since then followed by [facility] seizure clinic (compliant) comes here with * Sig encephelopathy - Admitted with Witnessed seizure activity and a fall (EEG no further seizures). 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 Off propofol still had sig lethergay ( rpt ct since admission does not show any new findinings) * Acute respiratory failure due to seizure activity and encephelopathy, patient has been intubated. May have aspiration pna as well as he was a difficult intubation. 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 PAfib since admission and anticoag started on 03/01, as the clotting risk out weighs the bleeding risks at this time (anticoag held till then due to sig bleeding risk, ie unstable fracture, altered mental status, recent fall, fracture nasal, recurrent seizures upon admission and hematoma and swelling of the left upper arm from displaced humerus fracture) * Significant alcohol use by history with probable dts, Marijuana, sig cocaine in the urine upon admission * Sig Heart disease with previous CABG and aortic valve replacement with bioprosthetic valve with previous arrythmia, now in pafib * Previous history of nephrolithiasis, now with john (improving) * Now sig delirium on and off requiring ativan occ and prn dilautid * Nasal fracture and displaced transcondylar fracture of distal left humerus, conservative rx per ortho * 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
[2018-03-02 09:24] LABS: PTT 69 SEC (25-37)
--- NOTE | 2018-03-02 11:17 | PN- Vascular Surgery ---
Surgical Brief Attending Note Brief Attending Note: pt seen and examined today Briefly 67 y/o m w/ hx of substance abuse, afib, cad, sz disorder found down on ground unresponsive. consulted for cool right foot. today right foot is warm and cap refill is significantly improved. He has bilateral pedal signals. I reviewed the CTA and it appears there is occlusion of the SFA but this more likely to be a chronic occlusion. Pt also s/p left humerus fx. he had some dimished flow in that arm on arterial duplex but hand is wwp. I would get a CTA of the left arm to rule out brachial injury from the humerus fracture. will conider right leg angiogram when patient is stable but no indication of critical limb ischemia at this time and no need for acute vascular intervention.
--- NOTE | 2018-03-02 12:26 | PN- Cardiology ---
Subjective Subjective: Patient seen at bedside. Patient remains intubated and unresponsive. Objective Vital Signs and I&Os Vital Signs Date Time Temp Pulse Resp B/P B/P Pulse O2 O2 Flow FiO2 Mean Ox Delivery Rate 03/02 1152 30 03/02 1118 79 127/84 03/02 0822 30 03/02 0800 100 Ventilator 30% 03/02 0800 99.3 92 20 152/93 100 Ventilator 30% 03/02 0534 30 03/02 0400 96 Ventilator 30% 03/02 0244 30 03/02 0000 96 Ventilator 30% 03/02 0000 96.8 86 20 140/100 96 Ventilator 30% 03/01 2358 30 03/01 2218 30 03/01 2000 94 Ventilator 30% 03/01 1924 30 03/01 1727 30 03/01 1600 96.4 84 20 142/80 98 Ventilator 30% 03/01 1600 98 Ventilator 30% 03/01 1412 30 03/01 1213 30 Intake & Output 03/02 1600 03/02 0800 03/02 0000 03/01 1600 03/01 0800 03/01 0000 Intake Total 1200 1256 1061 1552 740 Output Total 340 320 300 290 280 Balance 860 797 935 1287 460 Intake, IV 766 291 252 3068 740 Intake, Tube 259 185 136 76 Feeding Intake, Tube 175 185 75 75 Irrigant Number 0 0 0 0 0 Bowel Movements Output, Urine 340 320 300 290 280 Patient 91.626 kg 94.347 kg Weight Weight Bed scale Measurement Method Physical Exam: General: no apparent distress HEENT: NCAT, NO JVD Heart: s1s2, irregular rhythm, +pansystolic murmur across precordium best heard RUSB Lungs: CTA b/l Abd: soft, nt Ext: no peripheral edema Current Medications: Current Medications Sig/Louise Start time Last Medication Dose Route Stop Time Status Admin Ampicillin Sodium/ 3,000 MG Q6 02/27 1200 AC 03/02 Sulbactam Sodium IV 1101 Sodium Chloride 100 ML Atorvastatin Calcium 40 MG 1700 03/01 1700 AC 03/01 PO 1642 Dextrose/Sodium 1,000 ML Q20H 03/01 2345 DC 03/01 Chloride IV 2345 Dextrose/Sodium 1,000 ML Q20H 03/01 1415 DC 03/01 Chloride IV 03/02 0654 1600 Dextrose/Water 1,000 ML Q20H 02/28 2100 DC 02/28 IV 03/01 1659 2059 Docusate Sodium 100 MG DAILY NEEDED 03/02 0930 AC 03/02 PO 1057 Heparin Sodium 25,000 UNIT Q24H 02/28 2045 AC 03/02 (Porcine) IV 1011 Sodium Chloride 500 ML Hydromorphone HCl 1 MG Q4 PRN 02/28 2150 AC 03/02 IV 0812 Levetiracetam 1,000 MG Q8 03/02 1400 AC G TUBE Levetiracetam 1,000 MG Q8 02/26 2200 DC 03/02 N/A 1 UNIT IV 0547 Lorazepam 0.5 MG Q2P PRN 03/02 0845 AC IV Lorazepam 1 MG Q2P PRN 02/27 1115 DC 03/02 IV 0812 Metoprolol Tartrate 5 MG Q6 03/02 1800 AC IV Metoprolol Tartrate 5 MG Q6 03/02 1100 DC 03/02 IV 1118 Pantoprazole Sodium 40 MG DAILY 02/26 203 AC 03/02 IV 0812 Polyethylene Glycol 17 GM DAILY PRN 03/02 0930 AC 03/02 PO 1057 Senna 187 MG AT BEDTIME PRN 03/02 0930 AC 03/02 PO 1057 Valproate Sodium 1,000 MG BID 02/26 2100 DC 03/02 Sodium Chloride 100 ML IV 0821 Valproic Acid 1,000 MG BID 03/02 0900 AC PO Results Last 48 Hrs of Labs/Mics: Laboratory Tests 03/02/18 1116: Troponin I Pending 03/02/18 0757: APTT 69 H 03/02/18 0512: pH 7.46 H, pCO2 32 L, pO2 86, HCO3 22, ABG O2 Sat (Measured) 96.0, P-50 (Temp Corrected) N, Carboxyhemoglobin 0.8 L, O2 Concentration % 30%, Respiration Rate 20, O2 Delivery Method VENT, Vent Mode AC, Expiratory Pressure 5, Tidal Volume 500, Pressure Support 0, Phlebotomy Draw Site RIGHT RADIAL 03/02/18 0428: Anion Gap 9, Estimated GFR > 60, Glucose 108 H, Calcium 8.3 L, Phosphorus 3.2, Magnesium 2.0, Total Bilirubin 0.7, AST 24, ALT 30, Albumin 2.6 L, CBC w Diff MAN DIFF ORDERED, RBC 3.87 L, MCV 90.9, MCH 31.4 H, MCHC 34.5, RDW 14.2, Plt Count ND, MPV 11.6 H, Gran % 57.5, Lymphocytes % 22.9, Monocytes % 19.4 H, Eosinophils % 0, Basophils % 0.2, Absolute Granulocytes 3.5, Segmented Neutrophils 62, Absolute Lymphocytes 1.4, Lymphocytes 26, Monocytes 12 H, Absolute Monocytes 1.2 H, Absolute Eosinophils 0, Absolute Basophils 0, Platelet Estimate ADEQUATE, Polychromasia 1+, Ovalocytes FEW, Fld Total RBCs Counted 100 03/02/18 0114: APTT 108 *H 03/01/18 1254: APTT 70 H 03/01/18 0520: pH 7.48 H, pCO2 30 L, pO2 81, HCO3 22, ABG O2 Sat (Measured) 95.0 L, P-50 ( Temp Corrected) Y, Carboxyhemoglobin 0.3 L, O2 Concentration % 30%, Temperature 97.7, Respiration Rate 20, O2 Delivery Method ESPRIT, Vent Mode AC, Expiratory Pressure 5, Tidal Volume 500, Phlebotomy Draw Site RIGHT RADIAL 03/01/18 0502: Anion Gap 12, Estimated GFR > 60, Glucose 88, Calcium 8.5, Phosphorus 3.1, Magnesium 2.1, Total Bilirubin 0.9, AST 18, ALT 29, Albumin 2.8 L, APTT 36, CBC w Diff MAN DIFF ORDERED, RBC 4.06 L, MCV 90.7, MCH 31.5 H, MCHC 34.7, RDW 14.4 , Gran % 59.0, Lymphocytes % 19.8 L, Monocytes % 21.0 H, Eosinophils % 0.1, Basophils % 0.1, Absolute Granulocytes 4.6, Segmented Neutrophils 68, Band Neutrophils 3, Absolute Lymphocytes 1.5, Lymphocytes 17 L, Monocytes 10 H, Absolute Monocytes 1.6 H, Absolute Eosinophils 0, Absolute Basophils 0, Metamyelocytes 2 H, Normocytic RBCs VERIFIED, Normochromic RBCs VERIFIED Recent Imaging Studies: telemetry - personally reviewed; baseline rhythm atrial fibrillation, rate well controlled; one episode of nonsustained wide-complex tachycardia, is all spontaneously, likely NSVT versus less likely SVT or A. fib with aberrancy CXR - 1. The tip of the endotracheal tube is located approximately 3.6 cm above the level of the seven. 2. The tip of the enteric tube is seen projecting within the left upper quadrant of the abdomen. 3. Low lung volume within the right hemithorax. No discrete focal airspace disease. Assessment/Plan Assessment/Plan 1. Seizure disorder 2. Atrial fibrillation, currently not on chronic AC due to seizure disorder with refractory polysubstance abuse 3. Coronary artery disease status post CABG 4. Bioprosthetic aortic valve 5. Nonsustained wide complex tachycardia 6. Peripheral vascular disease 7. 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 polysubstance abuse, including cocaine 9. Hypertension 10. Hyperlipidemia Patient remains in atrial fibrillation. Currently not tachycardic. Patient is currently on heparin drip. We will continue with heparin drip, trend cbc, monitor for signs of bleeding. Patient has a history of coronary artery disease, and had an episode of nonsustained wide-complex tachycardia on telemetry overnight, likely NSVT. This is concerning for possible ischemia. hiram continue with heparin drip. Recommend initiating beta-boom, metoprolol 5 mg IV push every 6 hours. Continue telemetry. Continue with atorvastatin. Would also recommend initiating daily aspirin. Continue telemetry? Yes
[2018-03-02 16:00] VITALS: BP 160/0
--- NOTE | 2018-03-02 16:05 | CT SCAN REPORT ---
EXAMINATION: CT ANGIOGRAM UPPER EXTREMITY, LEFT CLINICAL INFORMATION: This is a 67-year-old male with history of a humerus fracture in the left arm. Possible brachial artery injury. Interventional Radiologist: Parminder Prince M.D., F.S.I.R., F.A.C.R. COMPARISON: Comparison is made to a CT scan of the chest dated 02/26/2018. Multiple 0.6 mm thick axial sections were obtained through the abdomen, pelvis and bilateral femoral runoff to the feet.chest. This was performed with intravenous contrast injection of 100 cc of Omnipaque 300 contrast. 3-D reconstructions with MIPS reconstructions were obtained and reviewed at a dedicated workstation. Images were evaluated on an independent dedicated 3-D workstation and 3-D images were reconstructed with concurrent radiologist supervision and subsequently interpreted. DLP: 656 mGy-cm. Vascular findings: The left subclavian artery appears patent at the origin in the aortic arch. The left axillary artery appears patent without evidence of dissection. The left brachial artery appears patent without evidence of dissection. The left ulnar artery appears patent, continuous without dissection down to the level of the hand. There appears to be discontinuity in the left ulnar artery within the proximal hand. This may be occlusion and/or interruption of the arch within the hand. The left radial artery is patent in the proximal and mid forearm. Mild atherosclerotic disease is seen in the distal radial artery down to the level of the wrist. No significant filling of the arch within the hand is seen. The interosseous artery is widely patent throughout the forearm and is seen down to level the wrist. The lack of filling of the palmar arches with in the hand could be due to occlusions. Another possibility could be poor contrast bolus opacification or atherosclerotic disease. NONVASCULAR FINDINGS: FINDINGS: LUNGS: Limited views demonstrate no significant consolidation. MEDIASTINUM: No significant abnormality. PLEURA: Minimal left pleural thickening is noted. AXILLA: No lymphadenopathy. VISUALIZED UPPER ABDOMEN: Normal. OSSEOUS STRUCTURES: There is a comminuted fracture of the distal humerus. IMPRESSION: 1. The left subclavian artery, axillary artery, brachial artery, 3 vessels in the forearm appear patent without evidence of obstruction or dissection. 2. There is poor opacification of the superficial and deep arches with in the hand. This is suspicious for occlusions in these areas.
[2018-03-02 20:37] LABS: PTT 57 SEC (25-37)
[2018-03-03] VITALS: BP 128/72
[2018-03-03 03:21] LABS: ABSOLUTE BASOPHIL COUNT 0 /CUMM (0.0-0.2); ABSOLUTE EOSINOPHIL COUNT 0 /CUMM (0.0-0.7); ABSOLUTE GRANULOCYTE CT 2.7 /CUMM (1.4-6.5); ABSOLUTE LYMPH COUNT 1.7 /CUMM (1.2-3.4); ABSOLUTE MONOCYTE COUNT 1.3 /CUMM (0.10-0.60); BASOPHIL % 0.2 % (0.0-2.0); EOSINOPHIL % 0.3 % (0-5); GRANULOCYTE % 47.9 % (42.2-75.2); HEMATOCRIT 33.7 % (42-52); MEAN CORPUSCULAR HGB 31.2 PG (27.0-31.0); MEAN CORPUSCULAR HGB CONC 34.3 G/DL (33.0-37.0); RBC DISTRIBUTION WIDTH 14.3 % (11.5-14.5); WHITE BLOOD CELL COUNT 5.7 /CUMM (4.8-10.8)
[2018-03-03 03:56] LABS: PTT 111 SEC (25-37)
[2018-03-03 08:00] VITALS: BP 124/88
--- NOTE | 2018-03-03 08:25 | PN- Resident CRCU ---
Subjective HPI/CRCU Issues: #Chronic Seizure Disorder, p/b status epilepticus, on keppra and valproate #R SFA Occlusion #Acute Resp Distress s/p intubation #New onset thrombocytopenia in the setting of heparin drip, p/b HIT #PEPPER #Afib #L nondisplaced transcondylear fracture, splinted #Nasal Bone and Septum Fracture 24 Hour Events: Pt seen and examined at bedside this am. He continues to wakeup but does not follow commands. Only on ativan PRN. Pupils remain small. No BMs so far; patient remains on bowel regimen. Discussed current status with at bedside. Tele event: 11 Beat run of Vtach with a rate of 149 noted on tele noted at 1414. Pt on metoprolol 5mg IV. EKG/trop sent - EKG shows his usual baseline afib, trop was negative. Objective Vital Signs & I&O Last 8 Hrs of Vitals and I&O: Laboratory Tests 03/03 03/03 03/03 1013 0930 0250 Chemistry Sodium (137 - 145 mmol/L) 144 Potassium (3.5 - 5.1 mmol/L) 3.7 Chloride (98 - 107 mmol/L) 112 H Carbon Dioxide (22 - 30 mmol/L) 22 Anion Gap (5 - 16) 11 BUN (9 - 20 mg/dL) 22 H Creatinine (0.7 - 1.2 mg/dL) 1.1 Estimated GFR (>60 ml/min) > 60 Glucose (65 - 99 mg/dL) 109 H Calcium (8.4 - 10.2 mg/dL) 7.9 L Phosphorus (2.5 - 4.5 mg/dL) 3.0 Magnesium (1.6 - 2.3 mg/dL) 2.0 Total Bilirubin (0.2 - 1.3 mg/dL) 0.6 AST (17 - 59 U/L) 23 ALT (21 - 72 U/L) 34 Albumin (3.5 - 5.0 g/dL) 2.3 L Coagulation PT Pending INR Pending APTT (25 - 37 SEC) 111 *H Fibrinogen Activity Pending D-Dimer High Sensitivty Pending Hematology CBC w Diff MAN DIFF ORDERED WBC (4.8 - 10.8 /CUMM) 5.7 RBC (4.70 - 6.10 /CUMM) 3.70 L Hgb (14.0 - 18.0 G/DL) 11.5 L Hct (42 - 52 %) 33.7 L MCV (80.0 - 94.0 FL) 91.0 MCH (27.0 - 31.0 PG) 31.2 H MCHC (33.0 - 37.0 G/DL) 34.3 RDW (11.5 - 14.5 %) 14.3 Plt Count (130 - 400 /CUMM) 57 L Gran % (42.2 - 75.2 %) 47.9 Lymphocytes % (20.5 - 51.1 %) 29.4 Monocytes % (1.7 - 9.3 %) 22.2 H Eosinophils % (0 - 5 %) 0.3 Basophils % (0.0 - 2.0 %) 0.2 Absolute Granulocytes (1.4 - 6.5 /CUMM) 2.7 Segmented Neutrophils (42.2 - 75.2 %) 51 Absolute Lymphocytes (1.2 - 3.4 /CUMM) 1.7 Lymphocytes (20.5 - 51.1 %) 33 Monocytes (1.7 - 9.3 %) 16 H Absolute Monocytes (0.10 - 0.60 /CUMM) 1.3 H Absolute Eosinophils (0.0 - 0.7 /CUMM) 0 Absolute Basophils (0.0 - 0.2 /CUMM) 0 Platelet Estimate (ADEQUATE) DECREASED Normocytic RBCs VERIFIED Normochromic RBCs VERIFIED Immunology Heparin-induced Plt Ab Pending Heparin-PF4 AB OD Pending 03/02 03/02 03/02 1940 1745 1116 Chemistry Troponin I (<0.11 ng/ml) 0.02 0.02 Coagulation APTT (25 - 37 SEC) 57 H Vital Signs Date Time Temp Pulse Resp B/P B/P Pulse O2 O2 Flow FiO2 Mean Ox Delivery Rate 03/03 0931 30 03/03 0800 96 Ventilator 30% 03/03 0800 97.9 78 20 124/88 96 Ventilator 30% 03/03 0625 30 03/03 0513 87 20 137/83 03/03 0411 30 03/03 0400 95 Ventilator 30% 03/03 0037 30 03/03 0000 98 Ventilator 30% 03/03 0000 96.7 78 20 128/72 98 Ventilator 30% 03/02 2341 96.5 93 20 126/72 03/02 2209 30 03/02 2000 99 Ventilator 30% 07/20 1931 30 03/02 1704 84 169/97 03/02 1635 30 03/02 1600 97.0 71 20 160/0 100 Ventilator 30% 03/02 1600 100 Ventilator 30% 03/02 1414 30 03/02 1200 96 Ventilator 30% 03/02 1152 30 03/02 1118 79 127/84 Intake & Output 03/03 1600 03/03 0800 03/03 0000 Intake Total 1766 1803.7 Output Total 320 400 Balance 1446 1403.7 Intake, IV 976 783.7 Intake, Oral 0 Intake, Other 330 Intake, Tube 480 440 Feeding Intake, Tube 310 250 Irrigant Number 0 Bowel Movements Output, Urine 320 400 Exam General Appearance: sedated, intubated Head: evidence of injury, ecchymosis Neck: normal inspection, supple Respiratory: lungs clear, intubated Cardiovascular: irregularly irregular Gastrointestinal: hyperactive bowel sounds Extremities: pedal edema, pulses apparent on doppler. warmth is back to normal B /L Cranial Nerves: normal hearing, normal speech Current Medications: Current Medications Sig/Louise Start time Last Medication Dose Route Stop Time Status Admin Ampicillin Sodium/ 3,000 MG Q6 02/27 1200 AC 03/03 Sulbactam Sodium IV 0602 Sodium Chloride 100 ML Argatroban 250 MG Q24H 03/03 1015 AC Sodium Chloride 250 ML IV Aspirin 81 MG DAILY 03/03 0900 AC 03/03 PO 0840 Atorvastatin Calcium 40 MG 1700 03/01 1700 AC 03/02 PO 1625 Dextrose/Sodium 1,000 ML Q13H 03/02 1345 DC 03/02 Chloride IV 03/03 0244 1624 Docusate Sodium 100 MG DAILY NEEDED 03/02 0930 AC 03/02 PO 1057 Fentanyl Citrate 50 MCG ONCE ONE 03/03 1045 DC 03/03 IV 03/03 1046 1041 Guaifenesin/Codeine 10 ML Q6P PRN 03/03 0915 CAN Phosphate PO Heparin Sodium 4,100 UNIT ONCE ONE 03/02 2115 DC 03/02 (Porcine) IV 03/02 Heparin Sodium 5,000 UNIT .STK-MED ONE 03/02 2112 DC (Porcine) IV 03/02 2113 Heparin Sodium 25,000 UNIT Q24H 02/28 2045 DC 03/03 (Porcine) IV 0748 Sodium Chloride 500 ML Hydromorphone HCl 1 MG Q4P PRN 03/02 1945 AC 03/03 IV 0604 Hydromorphone HCl 1 MG ONCE ONE 03/02 1730 DC 03/02 IV 03/02 1731 1734 Hydromorphone HCl 1 MG Q4 PRN 02/28 2150 DC 03/02 IV 1213 Levetiracetam 1,000 MG Q8 03/02 1400 AC 03/03 G TUBE 0519 Lorazepam 1 MG ONCE ONE 03/02 1330 DC 03/02 IV 03/02 1331 1330 Lorazepam 0.5 MG Q2P PRN 03/02 0845 AC 03/03 IV 0359 Metoprolol Tartrate 5 MG Q6 03/02 1800 AC 03/03 IV 0513 Non-Formulary See Dose SEE ADMIN CRITERIA 03/03 1000 CAN Medication Insts (1) ANY Pantoprazole Sodium 40 MG DAILY 02/26 2035 AC 03/03 IV 0840 Polyethylene Glycol 17 GM DAILY PRN 03/02 0930 AC 03/03 PO 0839 Potassium Chloride 10 MEQ ONCE ONE 03/03 0430 DC 03/03 IV 03/03 0431 0435 Potassium Chloride 10 MEQ ONCE ONE 03/03 0430 DC 03/03 IV 03/03 0431 0636 Potassium Chloride 20 MEQ ONCE ONE 03/02 2015 DC 03/02 PO 03/02 Potassium Chloride 20 MEQ ONCE ONE 03/02 2000 CAN PO 03/02 2001 Senna 187 MG AT BEDTIME PRN 03/02 0930 AC 03/02 PO 1057 Valproic Acid 1,000 MG BID 03/02 0900 AC 03/03 PO 0839 Dose Instructions: (1)Non-Formulary Medication: SEE INSTRUCTIONS Impression/Plan Impression/Problem List Impression: 67 y/o M with PMH of chronic seizure disorder on valproate, CAD s/p CABG and bovine aortic valve replacement in 2013, Hodgkins lymphoma, HTN and HLD that was brought to the ED after he was /found to be unresponsiveness. The patient was at his baseline on 02/25. On the ED the patient's respiratory drive was poor and he was intubated. The EKG on the ED showed transient A-fib that converted to SR and reconverted to Afib. He was admitted to the ICU for management of his acute seizure episode p/b status epilepticus s/p intubation. Of note on 02/22, patient had a work related accident where he fell and landed on his face - CXR shows nasal bones and septum fracture. He also presented with a L nondisplaced supracondylear fracture. IMPRESSIONS #Chronic Seizure Disorder, p/b status epilepticus, on keppra and valproate #R SFA Occlusion #Acute Resp Distress s/p intubation #New onset thrombocytopenia in the setting of heparin drip, HIT vs factitious #PEPPER #Afib #L nondisplaced transcondylear fracture, splinted #Nasal Bone and Septum Fracture #Chronic Seizure Disorder, p/b status epilepticus Pt has a long standing history of seizure disorder, compliant on his valproic acid as evidenced by records and laboratory studies (Urine Valproate in therapeutic range). Urine toxicology showed evidence of cocaine use, could be playing a part into this latest seizure episode. His head CT (02/26) shows a chronic arachnoid cyst on the left anterior middle cranial fossa with some slight interval increase in size. He does have a history of ETOH use and while his serum alcohol was not impressive, a withdrawal induced seizure could still have been the culprit. Neurology was consulted and EEG showed no seizure activity, a follow up EEG showed diffuse cerebral dysfx. -Pt on keppra and valproate -Off propofol -f/u neuro reassessement #R SFA Occlusion Pt has been on a-fib since admission to the ICU - he was off systemic anticoagulation due to his multiple fractures in the nasal area and L nondisplaced transcondylear fracture. An arterial doppler U/S showed a R SFA occlusion. He has now been starting on heparin drip as benefits>risks. Vascular surgery was consulted and a CTA done on 03/01 that showed segmental occlusions of the distal right SFA. -f/u vasc surg recommendations #Acute Resp Distress s/p intubation On arrival, pt had poor inspiratory effort and there was concern for worsening status. Weaning trials to be attempted. Patient however remains agitated off propofol, ativan PRN to be given. There is concern for aspiration PNA due to his seizure activity and subsequent difficult intubation; CXR is not impressive for PNA, though respiratory culture growing pansensitive E. coli and Staph. Febrile 101.2 on 02/27, back to being afebrile -- He is on IV unasyn. -IV ativan PRN as needed -IV Unasyn 3g q6 (DAY #5) -Weaning trials #New onset thrombocytopenia in the setting of heparin drip, HIT vs factitious Pt with low PLT, could be due to clumping though HIT is high in differential, even though he's been on heparin therapy for <5 days, he could have circulating antibodies from prior heparin use in previous admission. PF4/ANEESH ordered and sent out, accurate PLT count requested. -f/u PLT count -f/u HIT workup #Afib pt currently on afib. He has an extensive cardiac history of CAD s/p CABG, bioprosthetic valve replacement, HTN/HLD with a positive urine tox for cocaine. Echo (02/27) shows an aortic bioprostethic valve with no significant insufficiency though it was not visualized optimally. LVEF is 60%. BP is currently controlled, though with some episodes of spikes in BP -- likely related to his withdrawal status, with improvement on administration of ativan. Cardiology is following. Had a nonsustained wide complex tachycardia during the night 03/02. 11-beat run of vtach noted on 03/03, STAT ekg/trop negative for ischemic changes. -IV metoprolol 5mg q6 #L nondisplaced transcondylear fracture, splinted On arrival, a L nondisplaced transcondylear fracture was noted. Pt is currently splinted. Orthopedics were consulted, and as per their recommendation, due to the patient's current status, a nonoperative management is recommended, though can be reconsidered on improvement of his status. Ice packs can be applied around the elbow. As per vascular surgery's recommendation, a CTA of L arm was ordered, showing possible occlusions within the deep and superficial arches of the hand. -Splint to remain -Ice packs around the elbow if needed #PEPPER, resolved Pt with BUN/Cr of 35/1.6 on admit, now down to 1.2/. Likely due to improvement upon initiation of IVF. FULL CODE DVT PPX: MECH, PHARM TUBE FEEDS Jevity 1.2 Problem List: 1. Status epilepticus 2. Respiratory failure Pain Ratin Tomorrow's Labs & Rationales: CBC/Plt Count ABG CXR ICU Lab Bundle Plan DVT/Prophylaxis: mechanical, pharmacological
--- NOTE | 2018-03-03 09:02 | RADIOLOGY REPORT ---
EXAMINATION: XR PORTABLE CHEST CLINICAL INFORMATION: Status post intubation. Suspected aspiration pneumonia. COMPARISON: Chest done on 03/02/2018. TECHNIQUE: Portable frontal view of the chest was obtained. FINDINGS: The tip of the endotracheal tube is located approximately 6 cm above the level of the seven. The tip of the enteric tube is not visualized due to suboptimal inclusion and underexposure. Both lung mccallum are symmetrically expanded and appear clear. The cardiomediastinal silhouette is mildly enlarged, unchanged. IMPRESSION: The tip of the endotracheal tube is located approximately 6 cm above the level of the seven. Bilateral clear lung mccallum.
--- NOTE | 2018-03-03 10:12 | PN- CRCU ---
Subjective HPI/Critical Care Issues: Still lethargic but little more awake Afebrile No other complaints as he is intubated Did get Ativan yesterday Did undergo CT angiogram of left upper extremity yesterday as he has had a fracture which showed no significant obstruction there were poor opacification of the superficial and deep arches within the hand there is mild suspicion for occlusions in this area she needs to be followed but the digits appear okay His ET tube unremarkable with slightly more distal today 6 cm above seven Other blood work reviewed BUN/creatinine relatively stable after contrast potassium low magnesium adequate white count down to 5.7 platelets have significantly reduced lately Objective Current Medications: Current Medications Sig/Louise Start time Last Medication Dose Route Stop Time Status Admin Ampicillin Sodium/ 3,000 MG Q6 02/27 1200 AC 03/03 Sulbactam Sodium IV 0602 Sodium Chloride 100 ML Aspirin 81 MG DAILY 03/03 0900 AC 03/03 PO 0840 Atorvastatin Calcium 40 MG 1700 03/01 1700 AC 03/02 PO 1625 Dextrose/Sodium 1,000 ML Q13H 03/02 1345 DC 03/02 Chloride IV 03/03 0244 1624 Docusate Sodium 100 MG DAILY NEEDED 03/02 0930 AC 03/02 PO 1057 Guaifenesin/Codeine 10 ML Q6P PRN 03/03 0915 CAN Phosphate PO Heparin Sodium 4,100 UNIT ONCE ONE 03/02 2115 DC 03/02 (Porcine) IV 03/02 Heparin Sodium 5,000 UNIT .STK-MED ONE 03/02 2112 DC (Porcine) IV 03/02 2113 Heparin Sodium 25,000 UNIT Q24H 02/28 2045 DC 03/03 (Porcine) IV 0748 Sodium Chloride 500 ML Hydromorphone HCl 1 MG Q4P PRN 03/02 1945 AC 03/03 IV 0604 Hydromorphone HCl 1 MG ONCE ONE 03/02 1730 DC 03/02 IV 03/02 1731 1734 Hydromorphone HCl 1 MG Q4 PRN 02/28 2150 DC 03/02 IV 1213 Levetiracetam 1,000 MG Q8 03/02 1400 AC 03/03 G TUBE 0519 Lorazepam 1 MG ONCE ONE 03/02 1330 DC 03/02 IV 03/02 1331 1330 Lorazepam 0.5 MG Q2P PRN 03/02 0845 AC 03/03 IV 0359 Metoprolol Tartrate 5 MG Q6 03/02 1800 AC 03/03 IV 0513 Metoprolol Tartrate 5 MG Q6 03/02 1100 DC 03/02 IV 1118 Non-Formulary See Dose SEE ADMIN CRITERIA 03/03 1000 UNVr Medication Insts (1) ANY Pantoprazole Sodium 40 MG DAILY 02/26 2035 AC 03/03 IV 0840 Polyethylene Glycol 17 GM DAILY PRN 03/02 0930 AC 03/03 PO 0839 Potassium Chloride 10 MEQ ONCE ONE 03/03 0430 DC 03/03 IV 03/03 0431 0435 Potassium Chloride 10 MEQ ONCE ONE 03/03 0430 DC 03/03 IV 03/03 0431 0636 Potassium Chloride 20 MEQ ONCE ONE 03/02 2015 DC 03/02 PO 03/02 Potassium Chloride 20 MEQ ONCE ONE 03/02 2000 CAN PO 03/02 2001 Senna 187 MG AT BEDTIME PRN 03/02 0930 AC 03/02 PO 1057 Valproic Acid 1,000 MG BID 03/02 0900 AC 03/03 PO 0839 Dose Instructions: (1)Non-Formulary Medication: SEE INSTRUCTIONS Vital Signs & I&O Last 24 Hrs of Vitals and I&O: Vital Signs Date Time Temp Pulse Resp B/P B/P Pulse O2 O2 Flow FiO2 Mean Ox Delivery Rate 03/03 0931 30 03/03 0800 96 Ventilator 30% 03/03 0800 97.9 78 20 124/88 96 Ventilator 30% 03/03 0625 30 03/03 0513 87 20 137/83 03/03 0411 30 03/03 0400 95 Ventilator 30% 03/03 0037 30 03/03 0000 98 Ventilator 30% 03/03 0000 96.7 78 20 128/72 98 Ventilator 30% 03/02 2341 96.5 93 20 126/72 03/02 2209 30 03/02 2000 99 Ventilator 30% 03/02 1931 30 03/02 1704 84 169/97 03/02 1635 30 03/02 1600 97.0 71 20 160/0 100 Ventilator 30% 03/02 1600 100 Ventilator 30% 03/02 1414 30 03/02 1200 96 Ventilator 30% 03/02 1152 30 03/02 1118 79 127/84 Intake & Output 03/03 1600 03/03 0800 03/03 0000 Intake Total 1766 1803.7 Output Total 320 400 Balance 1446 1403.7 Intake, IV 976 783.7 Intake, Oral 0 Intake, Other 330 Intake, Tube 480 440 Feeding Intake, Tube 310 250 Irrigant Number 0 Bowel Movements Output, Urine 320 400 Laboratory Tests 03/03 03/03 03/02 03/02 0930 0250 1940 1745 Chemistry Sodium (137 - 145 mmol/L) 144 Potassium (3.5 - 5.1 mmol/L) 3.7 Chloride (98 - 107 mmol/L) 112 H Carbon Dioxide (22 - 30 mmol/L) 22 Anion Gap (5 - 16) 11 BUN (9 - 20 mg/dL) 22 H Creatinine (0.7 - 1.2 mg/dL) 1.1 Estimated GFR (>60 ml/min) > 60 Glucose (65 - 99 mg/dL) 109 H Calcium (8.4 - 10.2 mg/dL) 7.9 L Phosphorus (2.5 - 4.5 mg/dL) 3.0 Magnesium (1.6 - 2.3 mg/dL) 2.0 Total Bilirubin (0.2 - 1.3 mg/dL) 0.6 AST (17 - 59 U/L) 23 ALT (21 - 72 U/L) 34 Troponin I (<0.11 ng/ml) 0.02 Albumin (3.5 - 5.0 g/dL) 2.3 L Coagulation PT Pending INR Pending APTT (25 - 37 SEC) 111 *H 57 H Fibrinogen Activity Pending D-Dimer High Sensitivty Pending Hematology CBC w Diff MAN DIFF ORDERED WBC (4.8 - 10.8 /CUMM) 5.7 RBC (4.70 - 6.10 /CUMM) 3.70 L Hgb (14.0 - 18.0 G/DL) 11.5 L Hct (42 - 52 %) 33.7 L MCV (80.0 - 94.0 FL) 91.0 MCH (27.0 - 31.0 PG) 31.2 H MCHC (33.0 - 37.0 G/DL) 34.3 RDW (11.5 - 14.5 %) 14.3 Plt Count (130 - 400 /CUMM) 57 L Gran % (42.2 - 75.2 %) 47.9 Lymphocytes % (20.5 - 51.1 %) 29.4 Monocytes % (1.7 - 9.3 %) 22.2 H Eosinophils % (0 - 5 %) 0.3 Basophils % (0.0 - 2.0 %) 0.2 Absolute Granulocytes (1.4 - 6.5 /CUMM) 2.7 Segmented Neutrophils (42.2 - 75.2 %) 51 Absolute Lymphocytes (1.2 - 3.4 /CUMM) 1.7 Lymphocytes (20.5 - 51.1 %) 33 Monocytes (1.7 - 9.3 %) 16 H Absolute Monocytes (0.10 - 0.60 /CUMM) 1.3 H Absolute Eosinophils (0.0 - 0.7 /CUMM) 0 Absolute Basophils (0.0 - 0.2 /CUMM) 0 Platelet Estimate (ADEQUATE) DECREASED Normocytic RBCs VERIFIED Normochromic RBCs VERIFIED 03/02 03/02 03/02 1116 075 0512 Blood Gas pH (7.35 - 7.45 PH) 7.46 H pCO2 (35 - 45 TORR) 32 L pO2 (80 - 100 TORR) 86 HCO3 (21 - 28 MEQ/L) 22 ABG O2 Sat (Measured) (>96.0 %) 96.0 P-50 (Temp Corrected) N Carboxyhemoglobin (1.5 - 5.0 %) 0.8 L O2 Concentration % 30% Respiration Rate (BPM) 20 O2 Delivery Method VENT Vent Mode AC Expiratory Pressure (CMH2O/P) 5 Tidal Volume (CC) 500 Pressure Support (CMH2O/P) 0 Chemistry Troponin I (<0.11 ng/ml) 0.02 Coagulation APTT (25 - 37 SEC) 69 H Miscellaneous Phlebotomy Draw Site RIGHT RADIAL 03/02 03/02 03/01 0428 0114 1254 Chemistry Sodium (137 - 145 mmol/L) 146 H Potassium (3.5 - 5.1 mmol/L) 3.8 Chloride (98 - 107 mmol/L) 114 H Carbon Dioxide (22 - 30 mmol/L) 24 Anion Gap (5 - 16) 9 BUN (9 - 20 mg/dL) 26 H Creatinine (0.7 - 1.2 mg/dL) 1.1 Estimated GFR (>60 ml/min) > 60 Glucose (65 - 99 mg/dL) 108 H Calcium (8.4 - 10.2 mg/dL) 8.3 L Phosphorus (2.5 - 4.5 mg/dL) 3.2 Magnesium (1.6 - 2.3 mg/dL) 2.0 Total Bilirubin (0.2 - 1.3 mg/dL) 0.7 AST (17 - 59 U/L) 24 ALT (21 - 72 U/L) 30 Albumin (3.5 - 5.0 g/dL) 2.6 L Coagulation APTT (25 - 37 SEC) 108 *H 70 H Hematology CBC w Diff MAN DIFF ORDERED WBC (4.8 - 10.8 /CUMM) 6.0 RBC (4.70 - 6.10 /CUMM) 3.87 L Hgb (14.0 - 18.0 G/DL) 12.1 L Hct (42 - 52 %) 35.1 L MCV (80.0 - 94.0 FL) 90.9 MCH (27.0 - 31.0 PG) 31.4 H MCHC (33.0 - 37.0 G/DL) 34.5 RDW (11.5 - 14.5 %) 14.2 Plt Count (130 - 400 /CUMM) ND MPV (7.4 - 10.4 FL) 11.6 H Gran % (42.2 - 75.2 %) 57.5 Lymphocytes % (20.5 - 51.1 %) 22.9 Monocytes % (1.7 - 9.3 %) 19.4 H Eosinophils % (0 - 5 %) 0 Basophils % (0.0 - 2.0 %) 0.2 Absolute Granulocytes (1.4 - 6.5 /CUMM) 3.5 Segmented Neutrophils (42.2 - 75.2 %) 62 Absolute Lymphocytes (1.2 - 3.4 /CUMM) 1.4 Lymphocytes (20.5 - 51.1 %) 26 Monocytes (1.7 - 9.3 %) 12 H Absolute Monocytes (0.10 - 0.60 /CUMM) 1.2 H Absolute Eosinophils (0.0 - 0.7 /CUMM) 0 Absolute Basophils (0.0 - 0.2 /CUMM) 0 Platelet Estimate (ADEQUATE) ADEQUATE Polychromasia 1+ Ovalocytes FEW Other Body Source Fld Total RBCs Counted (%) 100 Impression/Plan Impression/Plan Impression/Plan: Micro- ecoli and staph echo CONCLUSIONS Normal LV chamber size with moderate concentric LVH. The estimated LVEF is 60%. There are no focal wall motion abnormalities. Mildly dilated left atrial size. There is trace to mild mitral regurgitation. Bioprosthetic aortic valve with suboptimal visualization. The mean transvalvular gradient is 22 mmHg. There is no significant aortic insufficiency noted. Nile Logan M.D. (Electronically Signed) Final Date: 28 February 2018 Art ultrasound IMPRESSION: Occlusion of the SFA with very little flow demonstrated distally. CT run off 03/01 IMPRESSION: 1. No significant aortoiliac inflow disease on either side. 2. Segmental occlusion of the distal right superficial femoral artery with a small caliber popliteal artery and extensive disease of the anterior tibial and posterior tibial arteries. Only the peroneal artery is patent continuously to the right ankle. DICTATED BY: Tin Clayton MD DATE/TIME DICTATED:03/01/181518 Arterial ultrasound left UE IMPRESSION: No focal occlusive disease identified in the left arm arteries. There is monophasic waveforms and decreased velocities obtained in the forearm arteries suggesting distal disease. DICTATED BY: Tin Clayton MD DATE/TIME DICTATED:03/01/181032 Cxr nil acute Upper ext cta IMPRESSION: 1. The left subclavian artery, axillary artery, brachial artery, 3 vessels in the forearm appear patent without evidence of obstruction or dissection. 2. There is poor opacification of the superficial and deep arches with in the hand. This is suspicious for occlusions in these areas. DICTATED BY: Parminder Prince MD DATE/TIME DICTATED:03/02/181531 СЕРГЕЙ, Eomi Chest clear cvs aure, afib abd soft No edema Fracture left Ue Pupils small rt le colder than rt much improved since yesterday Rest less and nonpurposeful movements This is a 67-year-old gentleman with history of hypertension, hyperlipidemia, CABG, previous bovine aortic valve replacement, previous history of Hodgkin's lymphoma in the late 90s with previous chemoradiation therapy leading to significant neuropathy, significant medical marijuana usage, alcohol use on and off, multiple surgeries and chronic pain, previous seizure disorder started in 2014 and since then followed by [facility] seizure clinic (compliant) comes here with * Sig encephelopathy - Admitted with Witnessed seizure activity and a fall (EEG no further seizures). Patient does have a large arachnoid cyst in his left temporal area with mass effect to the underlying temporal area (appears stable since 2015), Pt with previous history of sig etoh use, marijuana use and now with urine tox positive for cocaine and seizure from cocaine vs withdrawal and other causes including cocaine induced edge inker uppers injury vs small vessel cerebral ishemia. Off propofol still had sig lethergy ( rpt ct since admission does not show any new findinings) 01/01 mld improvement * Acute respiratory failure due to seizure activity and encephelopathy, patient has been intubated. May have aspiration pna as well as he was a difficult intubation. Ecoli and Staph in the sputum and responding to abx - now better and can wean but his mental status is preventing the wean * Improving Ischemic foot rt side due to sfa occlusion (appears chronic by CT) improved clinically since heparin started)- vascular onboard. PAfib since admission and anticoag started on 03/01, as the clotting risk out weighs the bleeding risks at this time (anticoag held till then due to sig bleeding risk, ie unstable fracture, altered mental status, recent fall, fracture nasal, recurrent seizures upon admission and hematoma and swelling of the left upper arm from displaced humerus fracture) (cta left ue shows poor flow in the palm * Thrombocytopenia - needs eval * Significant alcohol use by history with probable dts, Marijuana, sig cocaine in the urine upon admission * Sig Heart disease with previous CABG and aortic valve replacement with bioprosthetic valve with previous arrythmia, now in pafib * Previous history of nephrolithiasis, now with john (improving) * Now sig delirium on and off requiring ativan occ and prn dilautid * Nasal fracture and displaced transcondylar fracture of distal left humerus, conservative rx per ortho * 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
[2018-03-03 10:29] LABS: PT 12.4 SEC (9.4-12.5)
[2018-03-03 11:02] LABS: ABSOLUTE BASOPHIL COUNT 0 /CUMM (0.0-0.2); ABSOLUTE EOSINOPHIL COUNT 0 /CUMM (0.0-0.7); ABSOLUTE GRANULOCYTE CT 3.5 /CUMM (1.4-6.5); ABSOLUTE LYMPH COUNT 2.4 /CUMM (1.2-3.4); ABSOLUTE MONOCYTE COUNT 1.7 /CUMM (0.10-0.60); BASOPHIL % 0.3 % (0.0-2.0); EOSINOPHIL % 0.2 % (0-5); HEMATOCRIT 37.4 % (42-52); MEAN CORPUSCULAR HGB 30.9 PG (27.0-31.0); MEAN CORPUSCULAR VOLUME 90.9 FL (80.0-94.0); RBC DISTRIBUTION WIDTH 13.9 % (11.5-14.5); RED BLOOD CELL CT 4.11 /CUMM (4.70-6.10)
[2018-03-03 11:45] LABS: WHITE BLOOD CELL COUNT 7.5 /CUMM (4.8-10.8)
--- NOTE | 2018-03-03 13:20 | PN- Neurology ---
Subjective Subjective: Per Dr Marr intial neuro consult: History of Present Illness: 67-year-old male admitted after found unresponsive Per medical records patient had left to work early in the morning and was found at 7:30 AM by the EMS En route to hospital he had an apparent seizure Followed at [facility] for seizure disorder and has been on divalproex records indicate that he is compliant Keppra added as per recommendations of Dr Marr Inerval Hx: No additional szs Remains intubated Tox screen (+) cocaine Tele showed runs of wide complex tachy per cardiology He is thrombocytopenic Hx chronic atrial fibrillation, was reportedly not on chronic AC due to seizure disorder with refractory polysubstance abuse But is currently on hep drip, was found to have right superficial femoral artery occlusion, possibly embolic Review of Systems: Unobtainable from the patient. According to the nurse he recently received Dilaudid for restlessness/agitation. He has not been following commands. He has been moving all 4 extremities. Objective Vital Signs and I&Os Vital Signs Date Time Temp Pulse Resp B/P B/P Pulse O2 O2 Flow FiO2 Mean Ox Delivery Rate 03/03 1403 30 03/03 1207 91 139/87 03/03 1200 96 Ventilator 30% 03/03 1135 30 03/03 0931 30 03/03 0800 96 Ventilator 30% 03/03 0800 97.9 78 20 124/88 96 Ventilator 30% 03/03 0625 30 03/03 0513 87 20 137/83 03/03 0411 30 03/03 0400 95 Ventilator 30% 03/03 0037 30 03/03 0000 98 Ventilator 30% 03/03 0000 96.7 78 20 128/72 98 Ventilator 30% 03/02 2341 96.5 93 20 126/72 03/02 2209 30 03/02 2000 99 Ventilator 30% 03/02 1931 30 03/02 1704 84 169/97 03/02 1635 30 03/02 1600 97.0 71 20 160/0 100 Ventilator 30% 03/02 1600 100 Ventilator 30% Intake & Output 03/03 1600 03/03 0800 21 0000 03/02 1600 03/02 0800 03/02 0000 Intake Total 1015 1766 1803.7 1316 1200 1256 Output Total 350 320 400 300 340 320 Balance 665 1446 1403.7 1016 860 936 Intake, IV 225 976 783.7 763 766 886 Intake, Oral 0 Intake, Other 330 Intake, Tube 480 480 440 348 259 185 Feeding Intake, Tube 310 310 250 205 175 185 Irrigant Number 0 0 0 0 0 Bowel Movements Output, Urine 350 320 400 300 340 320 Patient 225 lb 225 lb Weight Weight Bed scale Bed scale Measurement Method Physical Exam: Intubated, sedated Opens eyes briefly to voice Follows no commands Pupils equal round and reactive to light Full extraocular motility No obvious facial asymmetry No obvious focal motor deficit Right greater than left upper extremity distal edema Current Medications: Current Medications Sig/Louise Start time Last Medication Dose Route Stop Time Status Admin Ampicillin Sodium/ 3,000 MG Q6 02/27 1200 AC 03/03 Sulbactam Sodium IV 1207 Sodium Chloride 100 ML Argatroban 250 MG Q24H 03/03 1015 AC Sodium Chloride 250 ML IV Aspirin 81 MG DAILY 03/03 0900 AC 03/03 PO 0840 Atorvastatin Calcium 40 MG 1700 03/01 1700 AC 03/02 PO 1625 Dextrose/Sodium 1,000 ML Q13H 03/02 1345 DC 03/02 Chloride IV 03/03 0244 1624 Docusate Sodium 100 MG DAILY NEEDED 03/02 0930 AC 03/02 PO 1057 Fentanyl Citrate 50 MCG ONCE ONE 03/03 1045 DC 03/03 IV 03/03 1046 1041 Guaifenesin/Codeine 10 ML Q6P PRN 03/03 0915 CAN Phosphate PO Heparin Sodium 4,100 UNIT ONCE ONE 03/02 2115 DC 03/02 (Porcine) IV 03/02 2116 2113 Heparin Sodium 5,000 UNIT .STK-MED ONE 03/02 2112 DC (Porcine) IV 03/02 2113 Heparin Sodium 25,000 UNIT Q24H 02/28 2045 DC 03/03 (Porcine) IV 0748 Sodium Chloride 500 ML Hydromorphone HCl 1 MG Q4P PRN 03/02 1945 AC 03/03 IV 0604 Hydromorphone HCl 1 MG ONCE ONE 03/02 1730 DC 03/02 IV 03/02 1731 1734 Levetiracetam 1,000 MG Q8 03/02 1400 AC 03/03 G TUBE 0519 Lorazepam 1 MG ONCE ONE 03/02 1330 DC 03/02 IV 03/02 1331 1330 Lorazepam 0.5 MG Q2P PRN 03/02 0845 AC 03/03 IV 0359 Metoprolol Tartrate 5 MG Q6 03/02 1800 AC 03/03 IV 1207 Non-Formulary See Dose SEE ADMIN CRITERIA 03/03 1000 CAN Medication Insts (1) ANY Pantoprazole Sodium 40 MG DAILY 02/26 2035 AC 03/03 IV 0840 Polyethylene Glycol 17 GM DAILY PRN 03/02 0930 AC 03/03 PO 0839 Potassium Chloride 10 MEQ ONCE ONE 03/03 430 DC 03/03 IV 03/03 0431 0435 Potassium Chloride 10 MEQ ONCE ONE 03/03 0430 DC 03/03 IV 03/03 0431 0636 Potassium Chloride 20 MEQ ONCE ONE 03/02 2015 DC 03/02 PO 03/02 Potassium Chloride 20 MEQ ONCE ONE 03/02 2000 CAN PO 03/02 2001 Senna 187 MG AT BEDTIME PRN 03/02 0930 AC 03/02 PO 1057 Valproic Acid 1,000 MG BID 03/02 0900 AC 03/03 PO 0839 Dose Instructions: (1)Non-Formulary Medication: SEE INSTRUCTIONS Results Last 24 Hours of Lab Results: Laboratory Tests 03/03 03/03 03/03 1040 1013 0930 Coagulation PT (9.4 - 12.5 SEC) 12.4 INR (0.90 - 1.17) 1.14 Fibrinogen Activity (200 - 393 MG/DL) 462 H D-Dimer High Sensitivty (0 - 243 ng/ml) 356 H Hematology CBC w Diff NO MAN DIFF REQ WBC (4.8 - 10.8 /CUMM) 7.5 RBC (4.70 - 6.10 /CUMM) 4.11 L Hgb (14.0 - 18.0 G/DL) 12.7 L Hct (42 - 52 %) 37.4 L MCV (80.0 - 94.0 FL) 90.9 MCH (27.0 - 31.0 PG) 30.9 MCHC (33.0 - 37.0 G/DL) 34.0 RDW (11.5 - 14.5 %) 13.9 Plt Count (130 - 400 /CUMM) Gran % (42.2 - 75.2 %) 46.0 Lymphocytes % (20.5 - 51.1 %) 31.2 Monocytes % (1.7 - 9.3 %) 22.3 H Eosinophils % (0 - 5 %) 0.2 Basophils % (0.0 - 2.0 %) 0.3 Absolute Granulocytes (1.4 - 6.5 /CUMM) 3.5 Absolute Lymphocytes (1.2 - 3.4 /CUMM) 2.4 Absolute Monocytes (0.10 - 0.60 /CUMM) 1.7 H Absolute Eosinophils (0.0 - 0.7 /CUMM) 0 Absolute Basophils (0.0 - 0.2 /CUMM) 0 Immunology Heparin-induced Plt Ab Pending Heparin-PF4 AB OD Pending 03/03 03/02 03/02 0250 1940 1745 Chemistry Sodium (137 - 145 mmol/L) 144 Potassium (3.5 - 5.1 mmol/L) 3.7 Chloride (98 - 107 mmol/L) 112 H Carbon Dioxide (22 - 30 mmol/L) 22 Anion Gap (5 - 16) 11 BUN (9 - 20 mg/dL) 22 H Creatinine (0.7 - 1.2 mg/dL) 1.1 Estimated GFR (>60 ml/min) > 60 Glucose (65 - 99 mg/dL) 109 H Calcium (8.4 - 10.2 mg/dL) 7.9 L Phosphorus (2.5 - 4.5 mg/dL) 3.0 Magnesium (1.6 - 2.3 mg/dL) 2.0 Total Bilirubin (0.2 - 1.3 mg/dL) 0.6 AST (17 - 59 U/L) 23 ALT (21 - 72 U/L) 34 Troponin I (<0.11 ng/ml) 0.02 Albumin (3.5 - 5.0 g/dL) 2.3 L Coagulation APTT (25 - 37 SEC) 111 *H 57 H Hematology CBC w Diff MAN DIFF ORDERED WBC (4.8 - 10.8 /CUMM) 5.7 RBC (4.70 - 6.10 /CUMM) 3.70 L Hgb (14.0 - 18.0 G/DL) 11.5 L Hct (42 - 52 %) 33.7 L MCV (80.0 - 94.0 FL) 91.0 MCH (27.0 - 31.0 PG) 31.2 H MCHC (33.0 - 37.0 G/DL) 34.3 RDW (11.5 - 14.5 %) 14.3 Plt Count (130 - 400 /CUMM) 57 L Gran % (42.2 - 75.2 %) 47.9 Lymphocytes % (20.5 - 51.1 %) 29.4 Monocytes % (1.7 - 9.3 %) 22.2 H Eosinophils % (0 - 5 %) 0.3 Basophils % (0.0 - 2.0 %) 0.2 Absolute Granulocytes (1.4 - 6.5 /CUMM) 2.7 Segmented Neutrophils (42.2 - 75.2 %) 51 Absolute Lymphocytes (1.2 - 3.4 /CUMM) 1.7 Lymphocytes (20.5 - 51.1 %) 33 Monocytes (1.7 - 9.3 %) 16 H Absolute Monocytes (0.10 - 0.60 /CUMM) 1.3 H Absolute Eosinophils (0.0 - 0.7 /CUMM) 0 Absolute Basophils (0.0 - 0.2 /CUMM) 0 Platelet Estimate (ADEQUATE) DECREASED Normocytic RBCs VERIFIED Normochromic RBCs VERIFIED Recent Imaging Studies: PATIENT: ARYA FIGUEROA PRESENT AGE: 67 PATIENT ACCOUNT NO: [id number] : 48 LOCATION: [facility] ORDERING PHYSICIAN: Michel Lopez MD SERVICE DATE: 02/28/18- EXAM TYPE: CAT - CT HEAD WO IV CONTRAST EXAMINATION: CT HEAD WITHOUT CONTRAST CLINICAL INFORMATION: Right upper gaze. Episode of seizure 2 days ago. COMPARISON: 02/26/2018, 02/20/2015 TECHNIQUE: Contiguous axial imaging was performed from the skull base to vertex without intravenous administration of contrast. DLP: 702 mGy-cm FINDINGS: There is a stable CSF attenuation structure in the left perisylvian region/anterior aspect of the left middle cranial fossa compatible with an arachnoid cyst, unchanged in configuration from the prior. There is regional mass effect without shift of the normally midline structures. There is no hemorrhage, edema, shift of the normally midline structures,, or evolving territorial infarct. No new extra-axial collection. Attenuation within the brain parenchyma is within normal limits. The ventricles and sulci appear normal in caliber and configuration. No acute osseous abnormality. Mild mucosal thickening in the ethmoid and sphenoid air cells with some secretions in the left sphenoid air cell. The nasal cavity demonstrates rightward nasal septal deviation with spurring. The mastoid air cells are clear. The hot roll laminator view demonstrates that the patient remains intubated. IMPRESSION: No acute intracranial abnormality. Stable arachnoid cyst in the left middle cranial fossa. DICTATED BY: Bryon Alexandre MD DATE/TIME DICTATED:02/28/181228 USER INTERFACE DESIGNER:TIFFANIE DATE/TIME TRANSCRIBED:02/28/181228 CONFIDENTIAL, DO NOT COPY WITHOUT APPROPRIATE AUTHORIZATION. <Electronically signed in Other Vendor System> SIGNED BY: Bryon Alexandre MD 02/28/18 1236 EEG: Interpretation: The predominant posterior background rhythm consists of low voltage, poorly modulated 3-5 cps activity. Intermittent higher voltage 2-3 with a second activity is seen anteriorly. Occasional triphasic waves are noted. No focal or paroxysmal features are identified. Hyperventilation could not be performed. Impression: Abnormal EEG due to generalized slowing of the background rhythm consistent with diffuse cerebral dysfunction. No focal or paroxysmal features were identified. DICTATED BY: Davidson Ni MD DATE/TIME DICTATED:03/01/181324 USER INTERFACE DESIGNER:AVIVA DATE/TIME TRANSCRIBED:03/01/181324 REPORT NUMBER:[id number] EEG 02-26-18 Interpretation: EEG obtained in obtunded state on diprovan Predominantly low voltage 18-22 cps activity Intermittent 4-5 cps activity superimposed No epileptiform activities or focal abnormalities Impression: Abnormal EEG due to loss of alpha rhythm and intermittent slow wave activities indicative of diffuse cerebral dysfunction, likely secondary to medication effect DICTATED BY: Lino Marr MD DATE/TIME DICTATED:02/26/181840 <Electronically signed in Other Vendor System> SIGNED BY: Bryon Alexandre MD 02/28/18 1236 Electroencephalogram Report Electroencephalogram Results Date of service: 02/28/18 Neurourologist: Lisa Soto EEG Number: [id number] Test Utilizes: 10-20 system, 21 lead 18 channel digital recording Assessment/Plan Assessment: Seizure disorder rapidly stabilized with addition of Keppra Multiple concomitant medical comorbidities Tox screen positive for cocaine Plan: Continue Keppra 1000 mg every 8 hours and Depakote 1000 mg twice a day Wean off sedatives as able Neurochecks
[2018-03-03 16:00] VITALS: BP 118/74
--- NOTE | 2018-03-03 16:56 | PN- Cardiology ---
Subjective Subjective: Intubated and sedated. Objective Vital Signs and I&Os Vital Signs Date Time Temp Pulse Resp B/P B/P Pulse O2 O2 Flow FiO2 Mean Ox Delivery Rate 03/03 1942 30 03/03 1712 88 140/75 03/03 1608 30 03/03 1600 98 Ventilator 30% 03/03 1600 97.9 78 20 118/74 98 Ventilator 30% 03/03 1403 30 03/03 1207 91 139/87 03/03 1200 96 Ventilator 30% 03/03 1135 30 03/03 0931 30 03/03 0800 96 Ventilator 30% 03/03 0800 97.9 78 20 124/88 96 Ventilator 30% 03/03 0625 30 03/03 0513 87 20 137/83 03/03 0411 30 03/03 0400 95 Ventilator 30% 03/03 0037 30 03/03 0000 98 Ventilator 30% 03/03 0000 96.7 78 20 128/72 98 Ventilator 30% 03/02 2341 96.5 93 20 126/72 03/02 2209 30 03/02 2000 99 Ventilator 30% Intake & Output 03/03 1600 03/03 0800 03/03 0000 03/02 1600 03/02 0800 03/02 0000 Intake Total 1015 1766 1803.7 1316 1200 1256 Output Total 350 320 400 300 340 320 Balance 665 1446 1403.7 1016 860 936 Intake, IV 225 976 783.7 763 766 886 Intake, Oral 0 Intake, Other 330 Intake, Tube 480 480 440 348 259 185 Feeding Intake, Tube 310 310 250 205 175 185 Irrigant Number 0 0 0 0 0 Bowel Movements Output, Urine 350 320 400 300 340 320 Patient 225 lb 225 lb Weight Weight Bed scale Bed scale Measurement Method Physical Exam: male who is intubated. Vital signs: See above. Neck: No JVD, no bruits. Lungs: Clear to auscultation anteriorly. Heart: S1, S2 (irregularly, irregular). Abdomen: Soft, nontender, positive bowel sounds. Extremities: No edema. Current Medications: Current Medications Sig/Louise Start time Last Medication Dose Route Stop Time Status Admin Ampicillin Sodium/ 3,000 MG Q6 02/27 1200 AC 03/03 Sulbactam Sodium IV 1711 Sodium Chloride 100 ML Argatroban 250 MG Q24H 03/03 1530 AC 03/03 Sodium Chloride 250 ML IV 1556 Argatroban 250 MG Q24H 03/03 1015 CAN Sodium Chloride 250 ML IV Aspirin 81 MG DAILY 03/03 0900 AC 03/03 PO 0840 Atorvastatin Calcium 40 MG 1700 03/01 1700 AC 03/03 PO 1711 Dextrose/Sodium 1,000 ML Q13H 03/02 1345 DC 03/02 Chloride IV 03/03 0244 1624 Docusate Sodium 100 MG DAILY NEEDED 03/02 0930 AC 03/02 PO 1057 Fentanyl Citrate 50 MCG ONCE ONE 03/03 1045 DC 03/03 IV 03/03 1046 1041 Guaifenesin/Codeine 10 ML Q6P PRN 03/03 0915 CAN Phosphate PO Heparin Sodium 4,100 UNIT ONCE ONE 03/02 2115 DC 03/02 (Porcine) IV 03/02 Heparin Sodium 5,000 UNIT .STK-MED ONE 03/02 2112 DC (Porcine) IV 03/02 211 Heparin Sodium 25,000 UNIT Q24H 02/28 2045 DC 03/03 (Porcine) IV 0748 Sodium Chloride 500 ML Hydromorphone HCl 1 MG Q4P PRN 03/02 1945 AC 03/03 IV 1712 Lactulose 20 GM ONCE ONE 03/03 1745 DC 03/03 PO 03/03 1746 1901 Levetiracetam 1,000 MG Q8 03/02 1400 AC 03/03 G TUBE 1355 Lorazepam 0.5 MG Q2P PRN 03/02 0845 AC 03/03 IV 0359 Metoprolol Tartrate 5 MG Q6 03/02 1800 AC 03/03 IV 1712 Non-Formulary See Dose SEE ADMIN CRITERIA 03/03 1000 CAN Medication Insts (1) ANY Pantoprazole Sodium 40 MG DAILY 02/26 203 AC 03/03 IV 0840 Polyethylene Glycol 17 GM DAILY PRN 03/02 0930 AC 03/03 PO 0839 Potassium Chloride 20 MEQ ONCE ONE 03/03 1645 DC 03/03 PO 03/03 1646 1711 Potassium Chloride 40 MEQ ONCE ONE 03/03 1630 CAN PO 03/03 1631 Potassium Chloride 10 MEQ ONCE ONE 03/03 0430 DC 03/03 IV 03/03 0431 0435 Potassium Chloride 10 MEQ ONCE ONE 03/03 0430 DC 03/03 IV 03/03 0431 0636 Potassium Chloride 20 MEQ ONCE ONE 03/02 2015 DC 03/02 PO 03/02 Potassium Chloride 20 MEQ ONCE ONE 03/02 2000 CAN PO 03/02 2001 Senna 187 MG AT BEDTIME PRN 03/02 0930 AC 03/02 PO 1057 Valproic Acid 1,000 MG BID 03/02 0900 AC 03/03 PO 0839 Dose Instructions: (1)Non-Formulary Medication: SEE INSTRUCTIONS Results Last 48 Hrs of Labs/Mics: Laboratory Tests 03/03/18 1814: APTT 65 H 03/03/18 1100: APTT Cancelled 03/03/18 1040: CBC w Diff NO MAN DIFF REQ, RBC 4.11 L, MCV 90.9, MCH 30.9, MCHC 34.0, RDW 13.9 , Gran % 46.0, Lymphocytes % 31.2, Monocytes % 22.3 H, Eosinophils % 0.2, Basophils % 0.3, Absolute Granulocytes 3.5, Absolute Lymphocytes 2.4, Absolute Monocytes 1.7 H, Absolute Eosinophils 0, Absolute Basophils 0 03/03/18 1013: Heparin-induced Plt Ab Pending, Heparin-PF4 AB OD Pending 03/03/18 0930: PT 12.4, INR 1.14, Fibrinogen Activity 462 H, D-Dimer High Sensitivty 356 H 03/03/18 0250: Anion Gap 11, Estimated GFR > 60, Glucose 109 H, Calcium 7.9 L, Phosphorus 3.0 , Magnesium 2.0, Total Bilirubin 0.6, AST 23, ALT 34, Troponin I 0.02, Albumin 2.3 L, APTT 111 *H, CBC w Diff MAN DIFF ORDERED, RBC 3.70 L, MCV 91.0, MCH 31.2 H, MCHC 34.3, RDW 14.3, Gran % 47.9, Lymphocytes % 29.4, Monocytes % 22.2 H, Eosinophils % 0.3, Basophils % 0.2, Absolute Granulocytes 2.7, Segmented Neutrophils 51, Absolute Lymphocytes 1.7, Lymphocytes 33, Monocytes 16 H, Absolute Monocytes 1.3 H, Absolute Eosinophils 0, Absolute Basophils 0, Platelet Estimate DECREASED, Normocytic RBCs VERIFIED, Normochromic RBCs VERIFIED 03/02/18 1940: APTT 57 H 03/02/18 1745: Troponin I 0.02 03/02/18 1116: Troponin I 0.02 03/02/18 0757: APTT 69 H 03/02/18 0512: pH 7.46 H, pCO2 32 L, pO2 86, HCO3 22, ABG O2 Sat (Measured) 96.0, P-50 (Temp Corrected) N, Carboxyhemoglobin 0.8 L, O2 Concentration % 30%, Respiration Rate 20, O2 Delivery Method VENT, Vent Mode AC, Expiratory Pressure 5, Tidal Volume 500, Pressure Support 0, Phlebotomy Draw Site RIGHT RADIAL 03/02/18 0428: Anion Gap 9, Estimated GFR > 60, Glucose 108 H, Calcium 8.3 L, Phosphorus 3.2, Magnesium 2.0, Total Bilirubin 0.7, AST 24, ALT 30, Albumin 2.6 L, CBC w Diff MAN DIFF ORDERED, RBC 3.87 L, MCV 90.9, MCH 31.4 H, MCHC 34.5, RDW 14.2, Plt Count ND, MPV 11.6 H, Gran % 57.5, Lymphocytes % 22.9, Monocytes % 19.4 H, Eosinophils % 0, Basophils % 0.2, Absolute Granulocytes 3.5, Segmented Neutrophils 62, Absolute Lymphocytes 1.4, Lymphocytes 26, Monocytes 12 H, Absolute Monocytes 1.2 H, Absolute Eosinophils 0, Absolute Basophils 0, Platelet Estimate ADEQUATE, Polychromasia 1+, Ovalocytes FEW, Fld Total RBCs Counted 100 03/02/18 0114: APTT 108 *H Recent Imaging Studies: CXR 03/03/2018 The tip of the endotracheal tube is located approximately 6 cm above the level of the seven. The tip of the enteric tube is not visualized due to suboptimal inclusion and underexposure. Both lung mccallum are symmetrically expanded and appear clear. The cardiomediastinal silhouette is mildly enlarged, unchanged. Assessment/Plan Assessment/Plan [id number] w/ hx HTN, HLD, CAD s/p CABG, bioprosthetic AVR, lymphoma, chronic AF without AC, illicit drug use, and seizure disorder f/u'd at [facility] who presented after being found unresponsive w/ a subsequent seizure while en route to the ED in the ambulance requiring intubation with positive tox screen for cocaine w/ course complicated by NSVT, thrombocytopenia, R superficial femoral artery occlusion, possibly embolic, etc. Recommendations: * Continue ICU management. * Evaluate thrombocytopenia. * IV heparin DC'd and started on argatroban. * Continue Keppra and valproate. * Hold ASA given thrombocytopenia. * Replete potassium and aim to maintain between 4.0-4.5 mEq/L. * DVT prophylaxis. Continue telemetry? Not applicable (In ICU.)
[2018-03-03 18:35] LABS: PTT 65 SEC (25-37)
[2018-03-03 20:53] LABS: PTT 71 SEC (25-37)
[2018-03-04] VITALS: BP 151/104
[2018-03-04 04:33] LABS: HEMATOCRIT 37.7 % (42-52); MEAN CORPUSCULAR HGB 31.1 PG (27.0-31.0); MEAN CORPUSCULAR HGB CONC 34.5 G/DL (33.0-37.0); MEAN CORPUSCULAR VOLUME 90.2 FL (80.0-94.0); MEAN PLATELET VOLUME 11.3 FL (7.4-10.4); RBC DISTRIBUTION WIDTH 13.9 % (11.5-14.5); RED BLOOD CELL CT 4.18 /CUMM (4.70-6.10); WHITE BLOOD CELL COUNT 6.8 /CUMM (4.8-10.8)
[2018-03-04 04:53] LABS: PTT 64 SEC (25-37)
[2018-03-04 06:44] LABS: PLATELET COUNT 57 /CUMM (130-400)
--- NOTE | 2018-03-04 07:17 | RADIOLOGY REPORT ---
EXAMINATION: XR PORTABLE CHEST CLINICAL INFORMATION: Intubated. Pneumonia. COMPARISON: Previous chest x-ray most recent 03/03/2018 TECHNIQUE: Portable frontal view of the chest was obtained. FINDINGS: The cardiac silhouette is enlarged but stable. There are post-CABG changes. Hilar and mediastinal contours are unremarkable. There is an endotracheal tube with tip 8.7 cm above the seven. There is a nasogastric tube. The tube projects over the proximal stomach. The tip is not well visualized. There may be atelectasis or consolidation at the left lung base. The lungs are otherwise clear. There is no pleural effusion or pneumothorax. IMPRESSION: Endotracheal tube tip 8.7 cm above the seven. Nasogastric tube projects over the proximal stomach. Tip is not well seen. Loss of left hemidiaphragm suggestive of left lower lobe atelectasis or infiltrate.
[2018-03-04 08:00] VITALS: BP 109/63
--- NOTE | 2018-03-04 08:33 | PN- Resident CRCU ---
Subjective HPI/CRCU Issues: Seizure Disorder R SFA Occlusion Intubated New onset thrombocytopenia now on Argatroban drip PEPPER Afib L transcondylear fracture, splinted Nasal Bone and Septum Fracture 24 Hour Events: Received a total of 3mg of Ativan for sedation overnight as the patient was agitated and self extubated twice and was reintubated. A TLC was placed this morning due to poor IV access. Xray confirmed good position and no pneumothorax. Nurse reports patient has high residuals >1000cc and tube feeding is on hold. Objective Vital Signs & I&O Last 8 Hrs of Vitals and I&O: . Exam General Appearance: comfortable, sedated, intubated Head: miotic pupils but reactive, periorbital ecchymosis and abrasion on nose - improved since admission Neck: TLC in place on right Respiratory: normal breath sounds, chest non-tender, lungs clear Cardiovascular: irregularly irregular Gastrointestinal: soft, non-tender, distention Extremities: edema of upper extremities. L upper extremity in splint Cranial Nerves: PERRL Skin: intact, normal color Skin Temp/Moisture Exam: Cool/Dry (lower extremities) Sepsis Skin Exam (color): Normal for Ethnicity Weaning Parameters NIF: 40 Minute Volume: 12 Resp rate: 38 Vt: 340 Heart Rate: 93 Current Medications: Current Medications Sig/Louise Start time Last Medication Dose Route Stop Time Status Admin Ampicillin Sodium/ 3,000 MG Q6 02/27 1200 AC 03/04 Sulbactam Sodium IV 1117 Sodium Chloride 100 ML Argatroban 250 MG Q24H 03/03 1530 AC 03/03 Sodium Chloride 250 ML IV 1556 Argatroban 250 MG Q24H 03/03 1015 CAN Sodium Chloride 250 ML IV Aspirin 81 MG DAILY 03/03 0900 DC 03/03 PO 0840 Atorvastatin Calcium 40 MG 1700 03/01 1700 AC 03/03 PO 1711 Dexmedetomidine HCl 400 MCG Q19H 03/04 1100 AC 03/04 Sodium Chloride 96 ML IV 1210 Docusate Sodium 100 MG DAILY NEEDED 03/02 0930 AC 03/02 PO 1057 Hydromorphone HCl 2 MG ONCE ONE 03/04 0845 DC 03/04 IV 03/04 0846 0852 Hydromorphone HCl 1 MG Q4P PRN 03/02 1945 DC 03/04 IV 0719 Lactulose 20 GM ONCE ONE 03/03 1745 DC 03/03 PO 03/03 1746 1901 Levetiracetam 1,000 MG Q8 03/04 1400 AC N/A 1 UNIT IV Levetiracetam 1,000 MG Q8 03/02 1400 DC 03/04 G TUBE 0518 Lorazepam 2 MG ONE ONE 03/04 0845 DC 03/04 IV 03/04 0846 0852 Lorazepam 2 MG ONCE ONE 03/04 0715 DC 03/04 IV 03/04 0716 0719 Lorazepam 1 MG ONCE ONE 03/04 0545 DC 03/04 IV 03/04 0546 0545 Lorazepam 0.5 MG Q2P PRN 03/02 0845 DC 03/03 IV 2052 Metoprolol Tartrate 5 MG Q6 03/02 1800 AC 03/04 IV 1117 Non-Formulary 0 SEE ADMIN CRITERIA 03/04 1045 DC Medication ANY Pantoprazole Sodium 40 MG DAILY 02/26 2035 AC 03/04 IV 1111 Polyethylene Glycol 17 GM DAILY PRN 03/02 0930 AC 03/03 PO 0839 Potassium Chloride 20 MEQ ONCE ONE 03/03 1645 DC 03/03 PO 03/03 1646 1711 Potassium Chloride 40 MEQ ONCE ONE 03/03 1630 CAN PO 03/03 1631 Senna 187 MG AT BEDTIME PRN 03/02 0930 AC 03/02 PO 1057 Valproate Sodium 1,000 MG Q12H 03/04 1130 AC 03/04 Sodium Chloride 100 ML IV 1220 Valproate Sodium 1,000 MG Q12 03/04 1110 CAN IV Valproic Acid 1,000 MG BID 03/02 0900 DC 03/03 PO 2121 Impression/Plan Impression/Problem List Impression: 67 yo M with PMH of seizures, hypertension, hyperlipidemia, CABG and bovine aortic valve replacement in 2013, Hodgkins lymphoma was brought to the ED after he was found to be unresponsiveness at home. On admission to the ER, his EKG showed Atrial fibrilliation. He transiently converted to NSR but reverted back to atrial fibrilliation on arrival to the ICU. He was intubated in the ED due to respiratory distress. Assessment: 1. Seizure disorder 2. Acute Respiratory distress s/p intubation 3. PEPPER - resolved 4. Atrial Fibrilliation with controlled VR 5. Acute displaced transcondylar fracture of the distal left humerus 6. Bilateral nasal bones and nasal septal fracture 7. Chronic arachnoid cyst in left anterior middle cranial fossa which shows slight interval increase. 8. Moderate to severe cervical spondylosis with foraminal stenosis 9. New Onset Thrombocytopenia 10. SFA Occlusion Plan: * Continue monitoring in ICU for now. * Will switch to Precedex for sedation as the patient has significant constipation. * Rectal exam and if negative for stool impaction can be started on methylnaltrexone * Switched to IV Valproic acid and Levetiracetam due to high residuals in tube feeds * Continue Argatroban drip for now. * Talked to Dr Conroy over the phone regarding holding his Valproic acid. At this time she wishes to defer the decision to hematology but in the meantime would like the patient to continue on it as he has been on it for years. * EEG did not reveal any evidence of active seizure. * Keep left arm in splint for now. * Continue IV metoprolol 5mg q6. * Diet: tube feeds on hold for now. * DVT Prophylaxis: ALPS and Argatroban drip * Code: Full Code Problem List: 1. Seizure Pain Ratin Tomorrow's Labs & Rationales: CBC, BEP Plan DVT/Prophylaxis: mechanical, pharmacological
--- NOTE | 2018-03-04 09:30 | RADIOLOGY REPORT ---
EXAMINATION: XR PORTABLE CHEST CLINICAL INFORMATION: Hypoxia. Status post intubation. COMPARISON: Chest done on 03/04/2018. TECHNIQUE: Portable frontal view of the chest was obtained. FINDINGS: The tip of the endotracheal tube is located approximately 5.7 cm above the level of the seven. The tip of the enteric tube is visualized at the left upper abdomen. The course of the enteric tube however is undulated seen within the chest, may represent changes secondary to redundancy, needs clinical correlation. Evaluation of the lung field is technically limited due to overexposure. IMPRESSION: 1. The tip of the endotracheal tube is located approximately 5.7 cm above the level of the seven. 2. The course of the enteric tube is undulated within the chest may represent changes secondary to redundancy, needs clinical correlation. The tip of the enteric tube is projecting at left upper quadrant of the abdomen.
--- NOTE | 2018-03-04 10:16 | Proc Note Internal Medicine ---
Medicine Procedure Procedure Date: 03/04/18 Medical Procedure(s): central venous cath place Pre-Operative Diagnosis: Poor IV access Post-Operative Diagnosis: As above Estimated Blood Loss: less than 50ml Anesthesia: local monitored anesthesi Procedure Findings: Procedure: R IJ tlc placement via ultrasound guidance Consent obtained from patient's for need for central venous catheter due to poor IV access in the patient. Patient prepped and draped in sterile fashion. Ultrasound used to isolate major vessels in the neck, which revealed a large, compressible internal jugular vein. Lidocaine in sterile kit used to infiltrate area of neck where IJ was isolated, and triple lumen catheter was advanced. All three ports withdrew venous blood and easily flushed as well. TLC anchored with sutures, and dressed appropriately. All sharps were accounted for, and disposed in sharps container. Portable chest xray ordered for placement and to rule out pneumothorax
--- NOTE | 2018-03-04 11:10 | RADIOLOGY REPORT ---
EXAMINATION: XR PORTABLE CHEST CLINICAL INFORMATION: Status post central line and enteric tube placement. COMPARISON: Chest done earlier today. TECHNIQUE: Portable frontal view of the chest was obtained. FINDINGS: Interval placement of a right-sided internal jugular catheter is noted, the tip is seen projecting within the proximal superior vena cava region. There is no evidence of any pneumothorax present. The tip of the endotracheal tube is located approximately 5.7 cm above the level of the seven. The undulated course of the proximal part of the enteric tube is now corrected. The mid part of the enteric tube is still slightly underinflated. The tip of the enteric tube is not visualized within the [id number]. IMPRESSION: 1. Interval placement of a right IJ central line is noted with its tip seen projecting at the proximal superior vena cava. No evidence of any pneumothorax. 2. The tip of the ET tube is approximately 5.7 cm above the level of the seven. 3. The proximal part of the enteric tube appears straight, located to the left of the midline while the remainder of the enteric tube remain undulated.
--- NOTE | 2018-03-04 11:41 | PN- CRCU ---
Subjective HPI/Critical Care Issues: Events and data reviewed Patient was agitated last night and self extubated twice and had to be reintubated Due to poor IV access he did get a triple-lumen catheter this morning On and off agitation and did require Ativan Still has not had a bowel movement and appears to have had significant ileus with high residuals Still agitated confused with no purposeful movements Patient was noted to have significant thrombocytopenia and was started on Bactroban drip. Heparin induced antibodies pending SIGNIFICANT DATA creatinine up to 1.2 no significant anion gap LFTs unremarkable. Potassium is adequate magnesium is 2.1 white count 6.8 hemoglobin 13 platelets appears clumped and it was clumped in both EDTA and citrate HIDA antibody pending Keppra level pending Objective Current Medications: Current Medications Sig/Louise Start time Last Medication Dose Route Stop Time Status Admin Ampicillin Sodium/ 3,000 MG Q6 02/27 1200 AC 03/04 Sulbactam Sodium IV 1117 Sodium Chloride 100 ML Argatroban 250 MG Q24H 03/03 1530 AC 03/03 Sodium Chloride 250 ML IV 1556 Argatroban 250 MG Q24H 03/03 1015 CAN Sodium Chloride 250 ML IV Aspirin 81 MG DAILY 03/03 0900 DC 03/03 PO 0840 Atorvastatin Calcium 40 MG 1700 03/01 1700 AC 03/03 PO 1711 Dexmedetomidine HCl 400 MCG Q19H 03/04 1100 AC Sodium Chloride 96 ML IV Docusate Sodium 100 MG DAILY NEEDED 03/02 0930 AC 03/02 PO 1057 Hydromorphone HCl 2 MG ONCE ONE 03/04 0845 DC 03/04 IV 03/04 0846 0852 Hydromorphone HCl 1 MG Q4P PRN 03/02 1945 AC 03/04 IV 0719 Lactulose 20 GM ONCE ONE 03/03 1745 DC 03/03 PO 03/03 1746 1901 Levetiracetam 1,000 MG Q8 03/04 1400 AC N/A 1 UNIT IV Levetiracetam 1,000 MG Q8 03/02 1400 DC 03/04 G TUBE 0518 Lorazepam 2 MG ONE ONE 03/04 0845 DC 03/04 IV 03/04 0846 0852 Lorazepam 2 MG ONCE ONE 03/04 0715 DC 03/04 IV 03/04 0716 0719 Lorazepam 1 MG ONCE ONE 03/04 0545 DC 03/04 IV 03/04 0546 0545 Lorazepam 0.5 MG Q2P PRN 03/02 0845 AC 03/03 IV 2052 Metoprolol Tartrate 5 MG Q6 03/02 1800 AC 03/04 IV 1117 Non-Formulary 0 SEE ADMIN CRITERIA 03/04 1045 DC Medication ANY Pantoprazole Sodium 40 MG DAILY 02/26 203 AC 03/04 IV 1111 Polyethylene Glycol 17 GM DAILY PRN 03/02 0930 AC 03/03 PO 0839 Potassium Chloride 20 MEQ ONCE ONE 03/03 1645 DC 03/03 PO 03/03 1646 1711 Potassium Chloride 40 MEQ ONCE ONE 03/03 1630 CAN PO 03/03 1631 Senna 187 MG AT BEDTIME PRN 03/02 0930 AC 03/02 PO 1057 Valproate Sodium 1,000 MG Q12H 03/04 1130 AC Sodium Chloride 100 ML IV Valproate Sodium 1,000 MG Q12 03/04 1110 CAN IV Valproic Acid 1,000 MG BID 03/02 0900 DC 03/03 PO 2121 Vital Signs & I&O Last 24 Hrs of Vitals and I&O: Vital Signs Date Time Temp Pulse Resp B/P B/P Pulse O2 O2 Flow FiO2 Mean Ox Delivery Rate 03/04 1117 82 103/62 03/04 0730 30 03/04 0624 30 03/04 0518 86 158/96 03/04 0400 98 Ventilator 30% 03/04 0344 30 03/04 0110 30 03/04 0000 98 Ventilator 30% 03/04 0000 97.4 83 20 151/104 98 Ventilator 30% 03/03 2315 80 113/87 03/03 2213 30 03/03 2008 96 Ventilator 30% 03/03 1942 30 03/03 1712 88 140/75 03/03 1608 30 03/03 1600 98 Ventilator 30% 03/03 1600 97.9 78 20 118/74 98 Ventilator 30% 03/03 1403 30 03/03 1207 91 139/87 03/03 1200 96 Ventilator 30% 03/03 1135 30 Intake & Output 03/04 1600 03/04 0800 03/04 0000 Intake Total 783 1098 Output Total 1560 370 Balance -777 728 Intake, IV 258 158 Intake, Tube 400 560 Feeding Intake, Tube 125 380 Irrigant Output, 1000 Gastric Drainage Output, Urine 560 370 Impression/Plan Impression/Plan Impression/Plan: Micro- ecoli and staph echo CONCLUSIONS Normal LV chamber size with moderate concentric LVH. The estimated LVEF is 60%. There are no focal wall motion abnormalities. Mildly dilated left atrial size. There is trace to mild mitral regurgitation. Bioprosthetic aortic valve with suboptimal visualization. The mean transvalvular gradient is 22 mmHg. There is no significant aortic insufficiency noted. Nile Logan M.D. (Electronically Signed) Final Date: 28 February 2018 Art ultrasound IMPRESSION: Occlusion of the SFA with very little flow demonstrated distally. CT run off 03/01 IMPRESSION: 1. No significant aortoiliac inflow disease on either side. 2. Segmental occlusion of the distal right superficial femoral artery with a small caliber popliteal artery and extensive disease of the anterior tibial and posterior tibial arteries. Only the peroneal artery is patent continuously to the right ankle. DICTATED BY: Tin Clayton MD DATE/TIME DICTATED:03/01/181518 Arterial ultrasound left UE IMPRESSION: No focal occlusive disease identified in the left arm arteries. There is monophasic waveforms and decreased velocities obtained in the forearm arteries suggesting distal disease. DICTATED BY: Tin Clayton MD DATE/TIME DICTATED:03/01/181032 Cxr nil acute Upper ext cta IMPRESSION: 1. The left subclavian artery, axillary artery, brachial artery, 3 vessels in the forearm appear patent without evidence of obstruction or dissection. 2. There is poor opacification of the superficial and deep arches with in the hand. This is suspicious for occlusions in these areas. DICTATED BY: Parminder Prince MD DATE/TIME DICTATED:03/02/181531 [id number], Eomi Chest clear cvs aure, afib abd soft No edema Fracture left Ue Pupils small rt le colder than rt much improved since yesterday Rest less and nonpurposeful movements This is a 67-year-old gentleman with history of hypertension, hyperlipidemia, CABG, previous bovine aortic valve replacement, previous history of Hodgkin's lymphoma in the late 90s with previous chemoradiation therapy leading to significant neuropathy, significant medical marijuana usage, alcohol use on and off, multiple surgeries and chronic pain, previous seizure disorder started in 2014 and since then followed by [facility] seizure clinic (compliant) here with * Sig encephelopathy - Admitted with Witnessed seizure activity and a fall (EEG no further seizures and rapid improvement of seizure on keppra and valproic acid ). Patient does have a large arachnoid cyst in his left temporal area with mass effect to the underlying temporal area (appears stable since 2014), Pt with previous history of sig etoh use, marijuana use and now with urine tox positive for cocaine and seizure from cocaine vs withdrawal and other causes including cocaine induced operations officer injury vs small vessel cerebral ishemia. Off propofol still had sig lethergy ( rpt ct since admission does not show any new findinings) 01/01 mld improvement * Acute respiratory failure due to seizure activity and encephelopathy, patient has been intubated. May have aspiration pna as well as he was a difficult intubation. 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 PAfib since admission and anticoag started on 03/01, as the clotting risk out weighs the bleeding risks at this time (anticoag held till then due to sig bleeding risk, ie unstable fracture, altered mental status, recent fall, fracture nasal, recurrent seizures upon admission and hematoma and swelling of the left upper arm from displaced humerus fracture) (cta left ue shows poor flow in the palm * Thrombocytopenia - needs eval, on valproic acid * Ileus now with no sig bm on narcotics so far * Significant alcohol use by history with probable dts, Marijuana, sig cocaine in the urine upon admission * Sig Heart disease with previous CABG and aortic valve replacement with bioprosthetic valve with previous arrythmia, now in pafib * Previous history of nephrolithiasis, now with john (improving) * Now sig delirium on and off requiring ativan occ and prn dilautid * Nasal fracture and displaced transcondylar fracture of distal left humerus, conservative rx per ortho * 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
[2018-03-04 16:00] VITALS: BP 102/62
--- NOTE | 2018-03-04 16:37 | ULTRASOUND REPORT ---
EXAMINATION: US DUPLEX LOWER EXTREMITY ARTERY/GRAFT LIMITED, RIGHT CLINICAL INFORMATION: Cold foot. Loss of pulses. COMPARISON: Previous CTA March 01, 2019 and arterial ultrasound 02/28/2019 TECHNIQUE: Evaluation of the arteries of the right lower extremity was performed at rest. FINDINGS: There is evidence of atherosclerotic disease with calcified plaque. Right leg: Common femoral: 55 cm/s. Patent Profunda femoris: 46 cm/s. Patent Superficial femoral artery proximal 22 cm/s. Patent Mid Superficial femoral artery: Occluded. Distal superficial femoral artery: 12 cm/s. Monophasic flow. Popliteal: 11 cm/s. Monophasic flow. Anterior tibial tibial: 14 cm/s. Monophasic flow. Posterior tibial: 15 cm/s monophasic flow: Peroneal: Occluded. Dorsalis pedis: Occluded. IMPRESSION: Occlusion of the mid SFA and very little flow demonstrated distally. This is worse than 02/28/2018 exam.
--- NOTE | 2018-03-04 17:14 | Event Note ---
Event Note Event Note: 67 year old male PMH of HTN, HLD, CAD s/p CABG, bovine aortic valve, h/o seizure in ICU for witnessed seizure, fall, and respiratory failure s/p intubation with worsening cold RLE extremity. Patient was previously on anticoagulation with heparin gtt but switched to argatroban drip due to suspected HIT Situation: on physicla exam patient's right foot is much more cooler with no palpable pulses. no mottled appearance or discoloration noted. Arterial u/s ordered which showed Occlusion of the mid SFA with very little flow demonstrated distally. This study shows worsening when compared to 02/28/2018 exam. Vascular surgery was called. Spoke to Dr Encinas over the phone who said to observe the patient for now on anticoagulation and Dr Franz will resume care of the patient in am.
[2018-03-05] VITALS: BP 87/59
[2018-03-05 06:01] LABS: ABSOLUTE BASOPHIL COUNT 0 /CUMM (0.0-0.2); ABSOLUTE EOSINOPHIL COUNT 0 /CUMM (0.0-0.7); ABSOLUTE LYMPH COUNT 1.6 /CUMM (1.2-3.4); BASOPHIL % 0.2 % (0.0-2.0)
[2018-03-05 06:16] LABS: PTT 80 SEC (25-37)
--- NOTE | 2018-03-05 07:19 | PN- Resident CRCU ---
Subjective HPI/CRCU Issues: #Chronic Seizure Disorder, p/b status epilepticus, on keppra and valproate #R SFA Occlusion #Acute Resp Distress s/p intubation (day #7) #New onset thrombocytopenia in the setting of heparin drip, HIT vs factitious #PEPPER #Afib #L nondisplaced transcondylear fracture, splinted #Nasal Bone and Septum Fracture 24 Hour Events: Pt seen and examined at bedside. He was put on precedex after psychomotor agitation led to extubation and subsequent reentubation. When off precedex, he responded to verbal stimuli and followed commands. He had 3 loose BM overnight; R foot with good color and warmth after a second episode where it went cold. Objective Vital Signs & I&O Last 8 Hrs of Vitals and I&O: Laboratory Tests 03/05/18 0830: CBC w Diff MAN DIFF ORDERED, RBC 3.74 L, MCV 90.0, MCH 31.1 H, MCHC 34.6, RDW 14.1, MPV 10.7 H, Gran % 58.5, Lymphocytes % 15.6 L, Monocytes % 25.7 H, Eosinophils % 0.1, Basophils % 0.1, Absolute Granulocytes 5.6, Segmented Neutrophils 54, Band Neutrophils 5, Absolute Lymphocytes 1.5, Lymphocytes 15 L, Monocytes 26 H, Absolute Monocytes 2.5 H, Absolute Eosinophils 0, Absolute Basophils 0, Platelet Estimate ADEQUATE, Normocytic RBCs VERIFIED, Normochromic RBCs VERIFIED 03/05/18 0530: Anion Gap 10, Estimated GFR > 60, Glucose 114 H, Calcium 7.7 L, Phosphorus 4.0 , Magnesium 2.0, Total Bilirubin 0.7, AST 25, ALT 26, Albumin 2.2 L, APTT 80 H , CBC w Diff MAN DIFF ORDERED, RBC 3.48 L, MCV 89.7, MCH 31.0, MCHC 34.5, RDW 14.1, Gran % 55.5, Lymphocytes % 19.4 L, Monocytes % 24.9 H, Eosinophils % 0, Basophils % 0.2, Absolute Granulocytes 4.5, Segmented Neutrophils 58, Band Neutrophils 7 H, Absolute Lymphocytes 1.6, Lymphocytes 20 L, Monocytes 14 H, Absolute Monocytes 2.0 H, Absolute Eosinophils 0, Absolute Basophils 0, Metamyelocytes 1, Platelet Estimate , Normocytic RBCs VERIFIED, Normochromic RBCs VERIFIED Vital Signs Date Time Temp Pulse Resp B/P B/P Pulse O2 O2 Flow FiO2 Mean Ox Delivery Rate 03/05 1243 82 126/0 03/05 1135 30 03/05 0850 30 03/05 0800 98.2 87 20 109/71 99 Ventilator 30% 03/05 0800 99 Ventilator 30% 03/05 0605 89 100/83 03/05 0543 30 03/05 0400 98 Ventilator 30% 03/05 0326 30 03/05 0125 30 03/05 0021 74 87/59 03/05 0000 98 Ventilator 30% 03/05 0000 98.0 83 20 87/59 98 Ventilator 30% 03/04 2208 30 03/04 2000 96 Ventilator 30% 03/04 1936 30 03/04 1800 87 95/60 03/04 1600 99.2 85 20 102/62 97 Ventilator 30% 03/04 1600 97 Ventilator 30% 03/04 1556 30 03/04 1413 30 Exam General Appearance: sedated, intubated Head: evidence of injury, ecchymosis Ears, Nose, Throat: OG tube noted Neck: normal inspection, supple Respiratory: lungs clear, ETT tube noted Cardiovascular: edema, irregularly irregular Gastrointestinal: normal bowel sounds, soft, no organomegaly Extremities: slow capillary refill on R side, though improvevement on color and temperature from yesterday as per record Cranial Nerves: normal hearing (pt sedated) Current Medications: Current Medications Sig/Louise Start time Last Medication Dose Route Stop Time Status Admin Ampicillin Sodium/ 3,000 MG Q6 02/27 1200 AC 03/05 Sulbactam Sodium IV 0537 Sodium Chloride 100 ML Argatroban 250 MG Q24H 03/03 1530 AC 03/04 Sodium Chloride 250 ML IV 1636 Atorvastatin Calcium 40 MG 1700 03/01 1700 AC 03/03 PO 1711 Bisacodyl 10 MG ONCE ONE 03/04 1430 DC 03/04 WA 03/04 1431 1441 Dexmedetomidine HCl 400 MCG Q19H 03/04 1100 AC 03/05 Sodium Chloride 96 ML IV 0605 Dextrose/Sodium 1,000 ML Q13H 03/04 1415 AC 03/05 Chloride IV 0305 Docusate Sodium 100 MG DAILY NEEDED 03/02 0930 AC 03/02 PO 1057 Hydromorphone HCl 1 MG Q4P PRN 03/02 1945 DC 03/04 IV 0719 Levetiracetam 1,000 MG Q8 03/04 1400 AC 03/05 N/A 1 UNIT IV 0606 Lorazepam 0.5 MG Q2P PRN 03/02 0845 DC 03/03 IV 205 Metoprolol Tartrate 5 MG Q6 03/02 1800 AC 03/04 IV 1117 Pantoprazole Sodium 40 MG DAILY 02/26 2035 AC 03/05 IV 0958 Polyethylene Glycol 17 GM DAILY PRN 03/02 0930 AC 03/03 PO 0839 Senna 187 MG AT BEDTIME PRN 03/02 0930 AC 03/02 PO 1057 Valproate Sodium 1,000 MG Q12H 03/04 1130 AC 03/04 Sodium Chloride 100 ML IV 2334 CXR Findings: 03/05 EXAM TYPE: RAD - XRY-PORTABLE CHEST XRAY EXAMINATION: XR PORTABLE CHEST CLINICAL INFORMATION: Intubated. COMPARISON: 03/04/2018 TECHNIQUE: Portable frontal view of the chest was obtained. FINDINGS: The tip of the endotracheal tube is located 5.7 cm above the seven. The the tip of the right internal jugular central catheter is at the level of the proximal superior vena cava. The enteric tube extends below the diaphragm and into the stomach. No pneumothorax or pneumomediastinum. Persistent, nonspecific opacities in the lower lobes. No pulmonary edema or pleural effusion. Cardiomediastinal silhouette has stable size and contour. Aortic valve is replaced. Sternotomy wires are intact. IMPRESSION: 1. Endotracheal tube is 5.7 cm of the seven. 2. Persistent opacity from atelectasis or infiltrates in lower lobes, unchanged compared to 03/04/2018. 03/05/ EXAM TYPE: RAD - XRY-PORTABLE ABDOMEN EXAMINATION: XR PORTABLE ABDOMEN CLINICAL INFORMATION: High residual tube feeds. Constipation. COMPARISON: CXR from 03/04/2018 and 03/05/2018. TECHNIQUE: AP view of the abdomen. FINDINGS: The tip of the NG tube (as seen on the chest radiograph) is at the level of the gastric fundus. Bowel gas pattern is normal. No dilated loops of bowel. No excessive stool within the colon or rectum. No overt pneumoperitoneum. No evidence of renal calculus. Vascular calcifications are seen. Multilevel degenerative arthropathy of the lumbar spine. There is a right-sided L3 laminotomy defect. IMPRESSION: 1. No evidence of bowel obstruction. 2. Also, no excessive stool is identified in the colon or rectum. Impression/Plan Impression/Problem List Impression: 67 y/o M with PMH of chronic seizure disorder on valproate, CAD s/p CABG and bovine aortic valve replacement in 2013, Hodgkins lymphoma, HTN and HLD that was brought to the ED after he was /found to be unresponsiveness. The patient was at his baseline on 02/25. On the ED the patient's respiratory drive was poor and he was intubated. The EKG on the ED showed transient A-fib that converted to SR and reconverted to Afib. He was admitted to the ICU for management of his acute seizure episode p/b status epilepticus s/p intubation (day #7). Of note on 02/22, patient had a work related accident where he fell and landed on his face - CXR shows nasal bones and septum fracture. He also presented with a L nondisplaced supracondylear fracture. IMPRESSIONS #Chronic Seizure Disorder, p/b status epilepticus, on keppra and valproate #R SFA Occlusion #Acute Resp Distress s/p intubation (day #7) #New onset thrombocytopenia in the setting of heparin drip, HIT vs factitious #PEPPER #Afib #L nondisplaced transcondylear fracture, splinted #Nasal Bone and Septum Fracture #Chronic Seizure Disorder, p/b status epilepticus Pt has a long standing history of seizure disorder, compliant on his valproic acid as evidenced by records and laboratory studies (Urine Valproate in therapeutic range). Urine toxicology showed evidence of cocaine use, could have played a part into this latest seizure episode. head CT (02/26) shows a chronic arachnoid cyst on the left anterior middle cranial fossa with some slight interval increase in size. He does have a history of ETOH use and while his serum alcohol was not impressive, a withdrawal induced seizure could still have been the culprit. Neurology was consulted and EEG showed no seizure activity, a follow up EEG showed diffuse cerebral dysfx like the first one. He is now back to responding to verbal commands, on precedex due to significant motor agitation over the weekend. -Pt on keppra and valproate -On precedex, sedation holidays #R SFA Occlusion Pt has been on a-fib since admission to the ICU - he was off systemic anticoagulation due to his multiple fractures in the nasal area and L nondisplaced transcondylear fracture. An arterial doppler U/S showed a R SFA occlusion. He has now been starting on heparin drip as benefits>risks. Vascular surgery was consulted and a CTA done on 03/01 that showed segmental occlusions of the distal right SFA. Latest doppler 03/04 showed interval worsening - vascular plan for R leg angiogram p/b embolectomy. -R leg angiogram in the am -f/u vasc surgery recommendation #Acute Resp Distress s/p intubation (day #7) On arrival, pt had poor inspiratory effort and there was concern for worsening status. Pt started on precedex due to agitation requiring reintubation over the weekend. Aspiration PNA is likely due to his seizure activity and subsequent difficult intubation; CXR is not impressive for PNA, though respiratory culture growing pansensitive E. coli and Staph. Febrile 101.2 on 02/27, back to being afebrile -- He is on IV unasyn. -IV Unasyn 3g q6 (DAY #7) -Weaning trials #New onset thrombocytopenia in the setting of heparin drip, HIT vs factitious Pt with low PLT, could be due to clumping though HIT is high in differential, even though he's been on heparin therapy for <5 days, he could have circulating antibodies from prior heparin use in previous admissions. PF4/ANEESH ordered and sent out. Could be medicine related as pt on valproic acid. -f/u PLT count -f/u HIT workup #Afib pt currently on afib. He has an extensive cardiac history of CAD s/p CABG, bioprosthetic valve replacement, HTN/HLD with a positive urine tox for cocaine. Echo (02/27) shows an aortic bioprostethic valve with no significant insufficiency though it was not visualized optimally. LVEF is 60%. Cardiology is following. Had a nonsustained wide complex tachycardia during the night 03/02. 11-beat run of vtach noted on 03/03, STAT ekg/trop negative for ischemic changes. -IV metoprolol 5mg q6 #L nondisplaced transcondylear fracture, splinted On arrival, a L nondisplaced transcondylear fracture was noted. Pt is currently splinted. Orthopedics were consulted, and as per their recommendation, due to the patient's current status, a nonoperative management is recommended, though can be reconsidered on improvement of his status. Ice packs can be applied around the elbow. As per vascular surgery's recommendation, a CTA of L arm was ordered, showing possible occlusions within the deep and superficial arches of the hand. -Splint to remain -Ice packs around the elbow if needed #PEPPER, resolved Pt with BUN/Cr of 35/1.6 on admit, 26/1.2 now. FULL CODE DVT PPX: MECH, PHARM TUBE FEEDS - jevity 1.2, goal of 80cc/hr Problem List: 1. Seizure 2. Status epilepticus Pain Ratin (not assessed- pt sedated) Tomorrow's Labs & Rationales: cbc (draw in citrate for accurate PLT count) icu lab bundle Plan DVT/Prophylaxis: mechanical, pharmacological
[2018-03-05 07:33] LABS: ABSOLUTE GRANULOCYTE CT 4.5 /CUMM (1.4-6.5); EOSINOPHIL % 0 % (0-5); GRANULOCYTE % 55.5 % (42.2-75.2); MEAN CORPUSCULAR HGB CONC 34.5 G/DL (33.0-37.0); MEAN CORPUSCULAR VOLUME 89.7 FL (80.0-94.0); RBC DISTRIBUTION WIDTH 14.1 % (11.5-14.5); RED BLOOD CELL CT 3.48 /CUMM (4.70-6.10); WHITE BLOOD CELL COUNT 8.1 /CUMM (4.8-10.8)
[2018-03-05 07:41] LABS: HEMATOCRIT 31.2 % (42-52)
[2018-03-05 08:00] VITALS: BP 109/71
[2018-03-05 08:50] LABS: ABSOLUTE BASOPHIL COUNT 0 /CUMM (0.0-0.2); ABSOLUTE EOSINOPHIL COUNT 0 /CUMM (0.0-0.7); ABSOLUTE GRANULOCYTE CT 5.6 /CUMM (1.4-6.5); ABSOLUTE LYMPH COUNT 1.5 /CUMM (1.2-3.4); ABSOLUTE MONOCYTE COUNT 2.5 /CUMM (0.10-0.60); BASOPHIL % 0.1 % (0.0-2.0); EOSINOPHIL % 0.1 % (0-5); GRANULOCYTE % 58.5 % (42.2-75.2); HEMATOCRIT 33.7 % (42-52); MEAN CORPUSCULAR HGB 31.1 PG (27.0-31.0); MEAN CORPUSCULAR HGB CONC 34.6 G/DL (33.0-37.0); MEAN PLATELET VOLUME 10.7 FL (7.4-10.4); RBC DISTRIBUTION WIDTH 14.1 % (11.5-14.5); RED BLOOD CELL CT 3.74 /CUMM (4.70-6.10); WHITE BLOOD CELL COUNT 9.5 /CUMM (4.8-10.8)
--- NOTE | 2018-03-05 09:43 | PN- Cardiology ---
Subjective Subjective: Patient remains intubated and sedated. Objective Vital Signs and I&Os Vital Signs Date Time Temp Pulse Resp B/P B/P Pulse O2 O2 Flow FiO2 Mean Ox Delivery Rate 03/05 0605 89 100/83 03/05 0543 30 03/05 0400 98 Ventilator 30% 03/05 0326 30 03/05 0125 30 03/05 0021 74 87/59 03/05 0000 98 Ventilator 30% 03/05 0000 98.0 83 20 87/59 98 Ventilator 30% 03/04 2208 30 03/04 2000 96 Ventilator 30% 03/04 1936 30 03/04 1800 87 95/60 03/04 1600 99.2 85 20 102/62 97 Ventilator 30% 03/04 1600 97 Ventilator 30% 03/04 1556 30 03/04 1413 30 03/04 1200 98 Ventilator 30% 03/04 1137 30 03/04 1117 82 103/62 Intake & Output 03/05 1600 03/05 0800 03/05 0000 03/04 1600 03/04 0800 03/04 0000 Intake Total 1116 705 869 985 1879 Output Total 280 341 274 1329 370 Balance 836 395 240 -777 728 Intake, IV 1116 705 515 258 158 Intake, Tube 400 560 Feeding Intake, Tube 125 380 Irrigant Number 2 2 0 Bowel Movements Output, 50 100 1000 Gastric Drainage Output, Urine 230 210 275 560 370 Patient 102.512 kg Weight Weight Bed scale Measurement Method Physical Exam: General: Intubated and sedated HEENT: Bruising around the eyes, NO JVD Heart: s1s2, irregularly irregular rhythm, not tachycardic, +pansystolic murmur across precordium best heard RUSB Lungs: Good air entry bilaterally, coarse breath sounds bilaterally Abd: soft Ext: Left upper extremity bandage in place, no lower extremity edema Current Medications: Current Medications Sig/Louise Start time Last Medication Dose Route Stop Time Status Admin Ampicillin Sodium/ 3,000 MG Q6 02/27 1200 AC 03/05 Sulbactam Sodium IV 0537 Sodium Chloride 100 ML Argatroban 250 MG Q24H 03/03 1530 AC 03/04 Sodium Chloride 250 ML IV 1636 Atorvastatin Calcium 40 MG 1700 03/01 1700 AC 03/03 PO 1711 Bisacodyl 10 MG ONCE ONE 03/04 1430 DC 03/04 MO 03/04 1431 1441 Dexmedetomidine HCl 400 MCG Q19H 03/04 1100 AC 03/05 Sodium Chloride 96 ML IV 0605 Dextrose/Sodium 1,000 ML Q13H 03/04 1415 AC 03/05 Chloride IV 0305 Docusate Sodium 100 MG DAILY NEEDED 03/02 0930 AC 03/02 PO 1057 Hydromorphone HCl 1 MG Q4P PRN 03/02 1945 DC 03/04 IV 0719 Levetiracetam 1,000 MG Q8 03/04 1400 AC 03/05 N/A 1 UNIT IV 0606 Levetiracetam 1,000 MG Q8 03/02 1400 DC 03/04 G TUBE 0518 Lorazepam 0.5 MG Q2P PRN 03/02 0845 DC 03/03 IV 2052 Metoprolol Tartrate 5 MG Q6 03/02 1800 AC 03/04 IV 1117 Non-Formulary 0 SEE ADMIN CRITERIA 03/04 1045 DC Medication ANY Pantoprazole Sodium 40 MG DAILY 02/26 2035 AC 03/04 IV 1111 Polyethylene Glycol 17 GM DAILY PRN 03/02 0930 AC 03/03 PO 0839 Senna 187 MG AT BEDTIME PRN 03/02 0930 AC 03/02 PO 1057 Valproate Sodium 1,000 MG Q12H 03/04 1130 AC 03/04 Sodium Chloride 100 ML IV 2334 Valproate Sodium 1,000 MG Q12 03/04 1110 CAN IV Valproic Acid 1,000 MG BID 03/02 0900 DC 03/03 PO 2121 Results Last 48 Hrs of Labs/Mics: Laboratory Tests 03/05/18 0830: CBC w Diff Pending, WBC Pending, RBC Pending, Hgb Pending, Hct Pending, MCV Pending, MCH Pending, MCHC Pending, RDW Pending, Plt Count Pending, MPV Pending, Gran % Pending, Lymphocytes % Pending, Monocytes % Pending, Eosinophils % Pending, Basophils % Pending, Absolute Granulocytes Pending, Absolute Lymphocytes Pending, Absolute Monocytes Pending, Absolute Eosinophils Pending, Absolute Basophils Pending 03/05/18 0530: Anion Gap 10, Estimated GFR > 60, Glucose 114 H, Calcium 7.7 L, Phosphorus 4.0 , Magnesium 2.0, Total Bilirubin 0.7, AST 25, ALT 26, Albumin 2.2 L, APTT 80 H , CBC w Diff MAN DIFF ORDERED, RBC 3.48 L, MCV 89.7, MCH 31.0, MCHC 34.5, RDW 14.1, Gran % 55.5, Lymphocytes % 19.4 L, Monocytes % 24.9 H, Eosinophils % 0, Basophils % 0.2, Absolute Granulocytes 4.5, Segmented Neutrophils 58, Band Neutrophils 7 H, Absolute Lymphocytes 1.6, Lymphocytes 20 L, Monocytes 14 H, Absolute Monocytes 2.0 H, Absolute Eosinophils 0, Absolute Basophils 0, Metamyelocytes 1, Platelet Estimate , Normocytic RBCs VERIFIED, Normochromic RBCs VERIFIED 03/04/18 0405: Anion Gap 13, Estimated GFR > 60, Glucose 106 H, Calcium 8.4, Phosphorus 3.3, Magnesium 2.1, Total Bilirubin 0.8, AST 32, ALT 30, Albumin 2.8 L, Amylase 43, Lipase 30, APTT 64 H, CBC w Diff MAN DIFF ORDERED, RBC 4.18 L, MCV 90.2, MCH 31.1 H, MCHC 34.5, RDW 13.9, MPV 11.3 H, Segmented Neutrophils 45, Lymphocytes 41, Monocytes 14 H, Platelet Estimate , Normocytic RBCs VERIFIED, Normochromic RBCs VERIFIED 03/03/18 1955: APTT 71 H 03/03/18 1814: APTT 65 H 03/03/18 1100: APTT Cancelled 03/03/18 1040: CBC w Diff NO MAN DIFF REQ, RBC 4.11 L, MCV 90.9, MCH 30.9, MCHC 34.0, RDW 13.9 , Gran % 46.0, Lymphocytes % 31.2, Monocytes % 22.3 H, Eosinophils % 0.2, Basophils % 0.3, Absolute Granulocytes 3.5, Absolute Lymphocytes 2.4, Absolute Monocytes 1.7 H, Absolute Eosinophils 0, Absolute Basophils 0 03/03/18 1013: Heparin-induced Plt Ab Pending, Heparin-PF4 AB OD Pending 03/03/18 0930: PT 12.4, INR 1.14, Fibrinogen Activity 462 H, D-Dimer High Sensitivty 356 H Recent Imaging Studies: Telemetry: Personally reviewed, baseline rhythm atrial fibrillation, rate controlled; one episode of NSVT on 03/03, 11 beats at approximately 160 bpm US DUPLEX LOWER EXTREMITY ARTERY/GRAFT LIMITED, RIGHT: Occlusion of the mid SFA and very little flow demonstrated distally. This is worse than 02/28/2018 exam. Assessment/Plan Assessment/Plan 1. Seizure disorder 2. Atrial fibrillation, currently not on chronic AC due to seizure disorder with refractory polysubstance abuse 3. Coronary artery disease status post CABG 4. Bioprosthetic aortic valve 5. Nonsustained wide complex tachycardia 6. Peripheral vascular disease 7. 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 polysubstance abuse, including cocaine 9. Hypertension 10. Hyperlipidemia 11. ?thrombocytopenia Patient remains in atrial fibrillation. Currently not tachycardic. Heparin drip discontinued in the setting of thrombocytopenia, concern for HIT. patient is now anticoagulated with argatroban drip. Would continue with anticoagulation. Consider hematology evaluation. Trend cbc, monitor for signs of bleeding. Patient has a history of coronary artery disease, and has had occasional episodes of nonsustained wide-complex tachycardia on telemetry overnight, likely NSVT, most recently on 03/03. Continue with metoprolol 5 mg IV push every 6 hours. Continue telemetry. Continue with atorvastatin. Daily aspirin has been held because of thrombocytopenia. CBC report showed possible clumping of platelets. Recommend reinitiating aspirin if true platelet count shows adequate platelets as per hematology recommendations. Continue telemetry? Yes
[2018-03-05 09:59] LABS: PLATELET COUNT 140 /CUMM (130-400)
--- NOTE | 2018-03-05 10:12 | PN- CRCU ---
Subjective HPI/Critical Care Issues: Remains intubated and sedated Did have a bowel movement Did get Dulcolax yesterday His Ativan and morphine and Dilaudid was stopped and was changed to Precedex. Patient is sedated. Does open his eyes on commands per nurse. Sedation is held now for sedation holiday Lower extremity seems to be perfusing well Vascular in the room Remains afebrile SIGNIFICANT DATA Blood work reviewed creatinine 1.2 anion gap is normal his liver enzymes unremarkable his white count is 9.5 hemoglobin stable at 11.6 his platelets were 140 No significant left shift INR 1.14 Previous ABG reviewed Ultrasound of the lower extremity showed continued occlusion of the SFA worse than before Chest x-ray showed IV and proximal vena cava ET tube 5.7 cm above seven prior nasogastric tube was in the proximal stomach Objective Current Medications: Current Medications Sig/Louise Start time Last Medication Dose Route Stop Time Status Admin Ampicillin Sodium/ 3,000 MG Q6 02/27 1200 AC 03/05 Sulbactam Sodium IV 0537 Sodium Chloride 100 ML Argatroban 250 MG Q24H 03/03 1530 AC 03/04 Sodium Chloride 250 ML IV 1636 Atorvastatin Calcium 40 MG 1700 03/01 1700 AC 03/03 PO 1711 Bisacodyl 10 MG ONCE ONE 03/04 1430 DC 03/04 MN 03/04 1431 1441 Dexmedetomidine HCl 400 MCG Q19H 03/04 1100 AC 03/05 Sodium Chloride 96 ML IV 0605 Dextrose/Sodium 1,000 ML Q13H 03/04 1415 03/05 Chloride IV 0305 Docusate Sodium 100 MG DAILY NEEDED 03/02 0930 03/02 PO 1057 Hydromorphone HCl 1 MG Q4P PRN 03/[address] 03/04 IV 0719 Levetiracetam 1,000 MG Q8 03/04 1400 AC 03/05 N/A 1 UNIT IV 0606 Levetiracetam 1,000 MG Q8 03/02 1400 DC 03/04 G TUBE 0518 Lorazepam 0.5 MG Q2P PRN 03/02 0845 DC 03/03 IV 2052 Metoprolol Tartrate 5 MG Q6 03/02 1800 AC 03/04 IV 1117 Non-Formulary 0 SEE ADMIN CRITERIA 03/04 1045 DC Medication ANY Pantoprazole Sodium 40 MG DAILY 02/26 2035 AC 03/05 IV 0958 Polyethylene Glycol 17 GM DAILY PRN 03/02 0930 AC 03/03 PO 0839 Senna 187 MG AT BEDTIME PRN 03/02 0930 AC 03/02 PO 1057 Valproate Sodium 1,000 MG Q12H 03/04 1130 AC 03/04 Sodium Chloride 100 ML IV 2334 Valproate Sodium 1,000 MG Q12 03/04 1110 CAN IV Valproic Acid 1,000 MG BID 03/02 0900 DC 03/03 PO 2121 Vital Signs & I&O Last 24 Hrs of Vitals and I&O: Vital Signs Date Time Temp Pulse Resp B/P B/P Pulse O2 O2 Flow FiO2 Mean Ox Delivery Rate 03/05 0605 89 100/83 03/05 0543 30 03/05 0400 98 Ventilator 30% 03/05 0326 30 03/05 0125 30 03/05 0021 74 87/59 03/05 0000 98 Ventilator 30% 03/05 0000 98.0 83 20 87/59 98 Ventilator 30% 03/04 2208 30 03/04 2000 96 Ventilator 30% 03/04 1936 30 03/04 1800 87 95/60 03/04 1600 99.2 85 20 102/62 97 Ventilator 30% 03/04 1600 97 Ventilator 30% 03/04 1556 30 03/04 1413 30 03/04 1200 98 Ventilator 30% 03/04 1137 30 03/04 1117 82 103/62 Intake & Output 03/05 1600 03/05 0800 03/05 0000 Intake Total 1116 705 Output Total 280 310 Balance 836 395 Intake, IV 1116 705 Number 2 2 Bowel Movements Output, 50 100 Gastric Drainage Output, Urine 230 210 Patient 226 lb Weight Weight Bed scale Measurement Method Laboratory Tests 03/05 03/05 0830 0530 Chemistry Sodium (137 - 145 mmol/L) 144 Potassium (3.5 - 5.1 mmol/L) 4.0 Chloride (98 - 107 mmol/L) 111 H Carbon Dioxide (22 - 30 mmol/L) 24 Anion Gap (5 - 16) 10 BUN (9 - 20 mg/dL) 26 H Creatinine (0.7 - 1.2 mg/dL) 1.2 Estimated GFR (>60 ml/min) > 60 Glucose (65 - 99 mg/dL) 114 H Calcium (8.4 - 10.2 mg/dL) 7.7 L Phosphorus (2.5 - 4.5 mg/dL) 4.0 Magnesium (1.6 - 2.3 mg/dL) 2.0 Total Bilirubin (0.2 - 1.3 mg/dL) 0.7 AST (17 - 59 U/L) 25 ALT (21 - 72 U/L) 26 Albumin (3.5 - 5.0 g/dL) 2.2 L Coagulation APTT (25 - 37 SEC) 80 H Hematology CBC w Diff MAN DIFF ORDERED MAN DIFF ORDERED WBC (4.8 - 10.8 /CUMM) 9.5 8.1 RBC (4.70 - 6.10 /CUMM) 3.74 L 3.48 L Hgb (14.0 - 18.0 G/DL) 11.6 L 10.8 L Hct (42 - 52 %) 33.7 L 31.2 L MCV (80.0 - 94.0 FL) 90.0 89.7 MCH (27.0 - 31.0 PG) 31.1 H 31.0 MCHC (33.0 - 37.0 G/DL) 34.6 34.5 RDW (11.5 - 14.5 %) 14.1 14.1 Plt Count (130 - 400 /CUMM) 140 MPV (7.4 - 10.4 FL) 10.7 H Gran % (42.2 - 75.2 %) 58.5 55.5 Lymphocytes % (20.5 - 51.1 %) 15.6 L 19.4 L Monocytes % (1.7 - 9.3 %) 25.7 H 24.9 H Eosinophils % (0 - 5 %) 0.1 0 Basophils % (0.0 - 2.0 %) 0.1 0.2 Absolute Granulocytes (1.4 - 6.5 /CUMM) 5.6 4.5 Segmented Neutrophils (42.2 - 75.2 %) 54 58 Band Neutrophils (0.0 - 5.0 %) 5 7 H Absolute Lymphocytes (1.2 - 3.4 /CUMM) 1.5 1.6 Lymphocytes (20.5 - 51.1 %) 15 L 20 L Monocytes (1.7 - 9.3 %) 26 H 14 H Absolute Monocytes (0.10 - 0.60 /CUMM) 2.5 H 2.0 H Absolute Eosinophils (0.0 - 0.7 /CUMM) 0 0 Absolute Basophils (0.0 - 0.2 /CUMM) 0 0 Metamyelocytes (0.0 - 1.0 %) 1 Platelet Estimate (ADEQUATE) ADEQUATE Normocytic RBCs VERIFIED VERIFIED Normochromic RBCs VERIFIED VERIFIED 03/04 1100 Chemistry Sodium (137 - 145 mmol/L) 146 H Potassium (3.5 - 5.1 mmol/L) 4.1 Chloride (98 - 107 mmol/L) 110 H Carbon Dioxide (22 - 30 mmol/L) 22 Anion Gap (5 - 16) 13 BUN (9 - 20 mg/dL) 20 Creatinine (0.7 - 1.2 mg/dL) 1.2 Estimated GFR (>60 ml/min) > 60 Glucose (65 - 99 mg/dL) 106 H Calcium (8.4 - 10.2 mg/dL) 8.4 Phosphorus (2.5 - 4.5 mg/dL) 3.3 Magnesium (1.6 - 2.3 mg/dL) 2.1 Total Bilirubin (0.2 - 1.3 mg/dL) 0.8 AST (17 - 59 U/L) 32 ALT (21 - 72 U/L) 30 Albumin (3.5 - 5.0 g/dL) 2.8 L Amylase (30 - 110 U/L) 43 Lipase (23 - 300 U/L) 30 Coagulation APTT (25 - 37 SEC) 64 H 71 H 65 H Cancelled Hematology CBC w Diff MAN DIFF ORDERED WBC (4.8 - 10.8 /CUMM) 6.8 RBC (4.70 - 6.10 /CUMM) 4.18 L Hgb (14.0 - 18.0 G/DL) 13.0 L Hct (42 - 52 %) 37.7 L MCV (80.0 - 94.0 FL) 90.2 MCH (27.0 - 31.0 PG) 31.1 H MCHC (33.0 - 37.0 G/DL) 34.5 RDW (11.5 - 14.5 %) 13.9 Plt Count (130 - 400 /CUMM) MPV (7.4 - 10.4 FL) 11.3 H Segmented Neutrophils (42.2 - 75.2 %) 45 Lymphocytes (20.5 - 51.1 %) 41 Monocytes (1.7 - 9.3 %) 14 H Platelet Estimate (ADEQUATE) Normocytic RBCs VERIFIED Normochromic RBCs VERIFIED 03/03 03/03 1040 1013 Hematology CBC w Diff NO MAN DIFF REQ WBC (4.8 - 10.8 /CUMM) 7.5 RBC (4.70 - 6.10 /CUMM) 4.11 L Hgb (14.0 - 18.0 G/DL) 12.7 L Hct (42 - 52 %) 37.4 L MCV (80.0 - 94.0 FL) 90.9 MCH (27.0 - 31.0 PG) 30.9 MCHC (33.0 - 37.0 G/DL) 34.0 RDW (11.5 - 14.5 %) 13.9 Plt Count (130 - 400 /CUMM) Gran % (42.2 - 75.2 %) 46.0 Lymphocytes % (20.5 - 51.1 %) 31.2 Monocytes % (1.7 - 9.3 %) 22.3 H Eosinophils % (0 - 5 %) 0.2 Basophils % (0.0 - 2.0 %) 0.3 Absolute Granulocytes (1.4 - 6.5 /CUMM) 3.5 Absolute Lymphocytes (1.2 - 3.4 /CUMM) 2.4 Absolute Monocytes (0.10 - 0.60 /CUMM) 1.7 H Absolute Eosinophils (0.0 - 0.7 /CUMM) 0 Absolute Basophils (0.0 - 0.2 /CUMM) 0 Immunology Heparin-induced Plt Ab Pending Heparin-PF4 AB OD Pending Impression/Plan Impression/Plan Impression/Plan: СЕРГЕЙ, Eomi Chest clear cvs aure, afib abd soft No edema Fracture left Ue Pupils small rt le colder than rt much improved since yesterday Rest less and nonpurposeful movements This is a 67-year-old gentleman with history of hypertension, hyperlipidemia, CABG, previous bovine aortic valve replacement, previous history of Hodgkin's lymphoma in the late 90s with previous chemoradiation therapy leading to significant neuropathy, significant medical marijuana usage, alcohol use on and off, multiple surgeries and chronic pain, previous seizure disorder started in 2014 and since then followed by [facility] seizure [facility] (compliant) here with * Sig encephelopathy - Admitted with Witnessed seizure activity and a fall (EEG no further seizures and rapid improvement of seizure on keppra and valproic acid ). Patient does have a large arachnoid cyst in his left temporal area with mass effect to the underlying temporal area (appears stable since 2014), Pt with previous history of sig etoh use, marijuana use and now with urine tox positive for cocaine and seizure from cocaine vs withdrawal and other causes including cocaine induced copy holder injury vs small vessel cerebral ishemia. Pt now on precedex * Respiratory failure due to seizure activity and encephelopathy, patient has been intubated. May have aspiration pna as well as he was a difficult intubation. Ecoli and Staph in the sputum and responded to abx - now better and can wean but his mental status is preventing the wean. 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 PAfib since admission and anticoag started on 03/01, as the clotting risk out weighs the bleeding risks at this time (anticoag held till then due to sig bleeding risk, ie unstable fracture, altered mental status, recent fall, fracture nasal, recurrent seizures upon admission and hematoma and swelling of the left upper arm from displaced humerus fracture) (cta left ue shows poor flow in the palm * Thrombocytopenia - needs eval, on valproic acid, Prob hit now on argatroban * Ileus now with s/p sig bm * Significant alcohol use by history with probable dts, Marijuana, sig cocaine in the urine upon admission * Sig Heart disease with previous CABG and aortic valve replacement with bioprosthetic valve with previous arrythmia, now in pafib * Previous history of nephrolithiasis, now with john (improving) * Now sig delirium on and off off ativan and narcotics on precedex * Nasal fracture and displaced transcondylar fracture of distal left humerus, conservative rx per ortho * 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
--- NOTE | 2018-03-05 10:31 | RADIOLOGY REPORT ---
EXAMINATION: XR PORTABLE ABDOMEN CLINICAL INFORMATION: High residual tube feeds. Constipation. COMPARISON: CXR from 03/04/2018 and 03/05/2018. TECHNIQUE: AP view of the abdomen. FINDINGS: The tip of the NG tube (as seen on the chest radiograph) is at the level of the gastric fundus. Bowel gas pattern is normal. No dilated loops of bowel. No excessive stool within the colon or rectum. No overt pneumoperitoneum. No evidence of renal calculus. Vascular calcifications are seen. Multilevel degenerative arthropathy of the lumbar spine. There is a right-sided L3 laminotomy defect. IMPRESSION: 1. No evidence of bowel obstruction. 2. Also, no excessive stool is identified in the colon or rectum.
--- NOTE | 2018-03-05 10:34 | RADIOLOGY REPORT ---
EXAMINATION: XR PORTABLE CHEST CLINICAL INFORMATION: Intubated. COMPARISON: 03/04/2018 TECHNIQUE: Portable frontal view of the chest was obtained. FINDINGS: The tip of the endotracheal tube is located 5.7 cm above the seven. The the tip of the right internal jugular central catheter is at the level of the proximal superior vena cava. The enteric tube extends below the diaphragm and into the stomach. No pneumothorax or pneumomediastinum. Persistent, nonspecific opacities in the lower lobes. No pulmonary edema or pleural effusion. Cardiomediastinal silhouette has stable size and contour. Aortic valve is replaced. Sternotomy wires are intact. IMPRESSION: 1. Endotracheal tube is 5.7 cm of the seven. 2. Persistent opacity from atelectasis or infiltrates in lower lobes, unchanged compared to 03/04/2018.
--- NOTE | 2018-03-05 10:51 | PN- Vascular Surgery ---
Surgical Brief Attending Note Brief Attending Note: I was informed that patients right leg had worsened over the weekend. I went and examined the patient this am. right leg is now warm to touch and it has an intact pt signal. There is cap refill. Pt has uncountable plts count because of plt clumping. this may possiblty be from hit or from the valproic acid. Per plow shaker the pt mental status has improved but still having confusion and he remains intubted. I have scheduled him for right leg angiogram tomorrow and possible emoblectomy. I discussed possibility of using tpa in the procedure but medical team is concerned about hematoma in the arm given the recent fracture-- addtionally pt has some facial fx's. Will therefore plan not to use tpa.
[2018-03-05 12:51] LABS: HEPARIN INDUCED PLATELET AB NEGATIVE (NEGATIVE)
--- NOTE | 2018-03-05 15:36 | PN- Vascular Surgery ---
Surgical Brief Attending Note Brief Attending Note: Pt is on schedule for angiogram possible embolectomy on mon. i have tried to contact patients nok but she did not answer phone. I will attempt to contact her again regarding the procedure.
[2018-03-05 16:00] VITALS: BP 94/00
--- NOTE | 2018-03-05 17:35 | PN- Neurology ---
Subjective Subjective: remains intubated no seizures reported switched from hep gtt to argatroban Plt 140K Objective Vital Signs and I&Os Vital Signs Date Time Temp Pulse Resp B/P B/P Pulse O2 O2 Flow FiO2 Mean Ox Delivery Rate 03/05 1628 30 03/05 1600 97.9 66 20 94/00 93 Ventilator 30% 03/05 1600 93 Ventilator 30% 03/05 1415 30 03/05 1243 82 126/0 03/05 1200 97 Ventilator 30% 03/05 1135 30 03/05 0850 30 03/05 0800 98.2 87 20 109/71 99 Ventilator 30% 03/05 0800 99 Ventilator 30% 03/05 0605 89 100/83 03/05 0543 30 03/05 0400 98 Ventilator 30% 03/05 0326 30 03/05 0125 30 03/05 0021 74 87/59 03/05 0000 98 Ventilator 30% 03/05 0000 98.0 83 20 87/59 98 Ventilator 30% 03/04 2208 30 03/04 2000 96 Ventilator 30% 03/04 1936 30 03/04 1800 87 95/60 Intake & Output 03/05 1600 03/05 0800 03/05 0000 03/04 1600 03/04 0800 03/04 0000 Intake Total 837 1116 705 120 839 6352 Output Total 300 280 879 895 4353 370 Balance 537 836 395 240 -777 728 Intake, IV 837 1116 705 515 258 158 Intake, Tube 400 560 Feeding Intake, Tube 125 380 Irrigant Number 1 2 2 0 Bowel Movements Output, 50 100 1000 Gastric Drainage Output, Urine 300 230 210 275 560 370 Patient 226 lb Weight Weight Bed scale Measurement Method Physical Exam: Lethargic, resists eye opening Does not follow commands Current Medications: Current Medications Sig/Louise Start time Last Medication Dose Route Stop Time Status Admin Ampicillin Sodium/ 3,000 MG Q6 02/27 1200 AC 03/05 Sulbactam Sodium IV 03/06 0100 1226 Sodium Chloride 100 ML Argatroban 250 MG Q24H 03/03 1530 DC 03/04 Sodium Chloride 250 ML IV 1636 Atorvastatin Calcium 40 MG 1700 / 1700 AC 03/03 PO 1711 Dexmedetomidine HCl 400 MCG Q5H 03/05 1630 AC 03/05 Sodium Chloride 96 ML IV 1549 Dexmedetomidine HCl 400 MCG Q19H 03/04 1100 DC 03/05 Sodium Chloride 96 ML IV 03/05 1629 1030 Dextrose/Sodium 1,000 ML Q13H 03/04 1415 AC 03/05 Chloride IV 0305 Docusate Sodium 100 MG DAILY NEEDED 03/02 0930 AC 03/02 PO 1057 Heparin Sodium 25,000 UNIT Q24H 03/05 1615 AC (Porcine) IV Sodium Chloride 500 ML Levetiracetam 1,000 MG Q8 03/04 1400 AC 03/05 N/A 1 UNIT IV 1423 Metoprolol Tartrate 5 MG Q6 03/02 1800 AC 03/05 IV 1243 Pantoprazole Sodium 40 MG DAILY 02/26 2035 AC 03/05 IV 0958 Polyethylene Glycol 17 GM DAILY PRN 03/02 0930 AC 03/03 PO 0839 Senna 187 MG AT BEDTIME PRN 03/02 0930 AC 03/02 PO 1057 Valproate Sodium 1,000 MG Q12H 03/04 1130 AC 03/05 Sodium Chloride 100 ML IV 1226 Results Last 24 Hours of Lab Results: Laboratory Tests 03/05 03/05 0830 0530 Chemistry Sodium (137 - 145 mmol/L) 144 Potassium (3.5 - 5.1 mmol/L) 4.0 Chloride (98 - 107 mmol/L) 111 H Carbon Dioxide (22 - 30 mmol/L) 24 Anion Gap (5 - 16) 10 BUN (9 - 20 mg/dL) 26 H Creatinine (0.7 - 1.2 mg/dL) 1.2 Estimated GFR (>60 ml/min) > 60 Glucose (65 - 99 mg/dL) 114 H Calcium (8.4 - 10.2 mg/dL) 7.7 L Phosphorus (2.5 - 4.5 mg/dL) 4.0 Magnesium (1.6 - 2.3 mg/dL) 2.0 Total Bilirubin (0.2 - 1.3 mg/dL) 0.7 AST (17 - 59 U/L) 25 ALT (21 - 72 U/L) 26 Albumin (3.5 - 5.0 g/dL) 2.2 L Coagulation APTT (25 - 37 SEC) 80 H Hematology CBC w Diff MAN DIFF ORDERED MAN DIFF ORDERED WBC (4.8 - 10.8 /CUMM) 9.5 8.1 RBC (4.70 - 6.10 /CUMM) 3.74 L 3.48 L Hgb (14.0 - 18.0 G/DL) 11.6 L 10.8 L Hct (42 - 52 %) 33.7 L 31.2 L MCV (80.0 - 94.0 FL) 90.0 89.7 MCH (27.0 - 31.0 PG) 31.1 H 31.0 MCHC (33.0 - 37.0 G/DL) 34.6 34.5 RDW (11.5 - 14.5 %) 14.1 14.1 Plt Count (130 - 400 /CUMM) 140 MPV (7.4 - 10.4 FL) 10.7 H Gran % (42.2 - 75.2 %) 58.5 55.5 Lymphocytes % (20.5 - 51.1 %) 15.6 L 19.4 L Monocytes % (1.7 - 9.3 %) 25.7 H 24.9 H Eosinophils % (0 - 5 %) 0.1 0 Basophils % (0.0 - 2.0 %) 0.1 0.2 Absolute Granulocytes (1.4 - 6.5 /CUMM) 5.6 4.5 Segmented Neutrophils (42.2 - 75.2 %) 54 58 Band Neutrophils (0.0 - 5.0 %) 5 7 H Absolute Lymphocytes (1.2 - 3.4 /CUMM) 1.5 1.6 Lymphocytes (20.5 - 51.1 %) 15 L 20 L Monocytes (1.7 - 9.3 %) 26 H 14 H Absolute Monocytes (0.10 - 0.60 /CUMM) 2.5 H 2.0 H Absolute Eosinophils (0.0 - 0.7 /CUMM) 0 0 Absolute Basophils (0.0 - 0.2 /CUMM) 0 0 Metamyelocytes (0.0 - 1.0 %) 1 Platelet Estimate (ADEQUATE) ADEQUATE Normocytic RBCs VERIFIED VERIFIED Normochromic RBCs VERIFIED VERIFIED Assessment/Plan Assessment: Seizure disorder rapidly stabilized with addition of Keppra Multiple concomitant medical comorbidities Tox screen positive for cocaine Doubt depakote the cause of thrombocytopenia Plan: Continue Keppra 1000 mg every 8 hours and Depakote 1000 mg twice a day Wean off sedatives as able Neurochecks
--- NOTE | 2018-03-05 17:43 | PN- Cardiology ---
Subjective Subjective: Remains intubated and sedated. Objective Physical Exam: male who is intubated. Vital signs: See above. Neck: No JVD, no bruits. Lungs: Clear to auscultation anteriorly. Heart: S1, S2 (irregularly, irregular). Abdomen: Soft, nontender, positive bowel sounds. Extremities: No edema. Assessment/Plan Assessment/Plan [id number] w/ hx HTN, HLD, CAD s/p CABG, bioprosthetic AVR, lymphoma, chronic AF without AC, illicit drug use, and seizure disorder f/u'd at [facility] who presented after being found unresponsive w/ a subsequent seizure while en route to the ED in the ambulance requiring intubation with positive tox screen for cocaine w/ course complicated by NSVT, thrombocytopenia, R superficial femoral artery occlusion, possibly embolic, etc. Recommendations: * Continue ICU management. * Evaluate thrombocytopenia. * IV heparin DC'd and started on argatroban. * Continue Keppra and valproate. * Hold ASA given thrombocytopenia. * Replete potassium and aim to maintain between 4.0-4.5 mEq/L. * DVT prophylaxis. Continue telemetry? Not applicable (In ICU.)
[2018-03-06] VITALS: BP 110/68
[2018-03-06 01:03] LABS: PTT 74 SEC (25-37)
[2018-03-06 04:52] LABS: ABSOLUTE BASOPHIL COUNT 0 /CUMM (0.0-0.2); ABSOLUTE EOSINOPHIL COUNT 0 /CUMM (0.0-0.7); ABSOLUTE GRANULOCYTE CT 5.4 /CUMM (1.4-6.5); ABSOLUTE LYMPH COUNT 1.7 /CUMM (1.2-3.4); ABSOLUTE MONOCYTE COUNT 2.1 /CUMM (0.10-0.60); BASOPHIL % 0.3 % (0.0-2.0); EOSINOPHIL % 0.1 % (0-5); GRANULOCYTE % 58.8 % (42.2-75.2); HEMATOCRIT 32.5 % (42-52); MEAN CORPUSCULAR HGB 31.1 PG (27.0-31.0); MEAN CORPUSCULAR HGB CONC 34.4 G/DL (33.0-37.0); MEAN CORPUSCULAR VOLUME 90.4 FL (80.0-94.0); MEAN PLATELET VOLUME 11.2 FL (7.4-10.4); PLATELET COUNT 122 /CUMM (130-400); RBC DISTRIBUTION WIDTH 13.8 % (11.5-14.5); WHITE BLOOD CELL COUNT 9.1 /CUMM (4.8-10.8)
[2018-03-06 08:00] VITALS: BP 130/84
--- NOTE | 2018-03-06 08:12 | PN- Resident CRCU ---
Subjective HPI/CRCU Issues: #Chronic Seizure Disorder, s/p status epilepticus, on keppra and valproate #R SFA Occlusion, scheduled for angiogram on 03/07 in the am #Acute Resp Distress s/p intubation (day #8) #New onset thrombocytopenia- factitious, resolving #PEPPER #Afib #L nondisplaced transcondylear fracture, splinted #Nasal Bone and Septum Fracture 24 Hour Events: Pt. seen and examined at bedside this am. Due to agitation, precedex was increased to 1.0 mcgs/kg/hr, up from 0.7 overnight. He is however responding to verbal commands and nodding with his head. R foot feeling warm, though pulses are faint with doppler. Discussed recent developments with at bedside. Objective Vital Signs & I&O Last 8 Hrs of Vitals and I&O: Laboratory Tests 03/06/18 0500: APTT Cancelled 03/06/18 0400: Anion Gap 10, Estimated GFR > 60, Glucose 122 H, Calcium 7.7 L, Phosphorus 3.3 , Magnesium 2.0, Total Bilirubin 0.7, AST 26, ALT 25, Albumin 2.4 L, CBC w Diff MAN DIFF ORDERED, RBC 3.60 L, MCV 90.4, MCH 31.1 H, MCHC 34.4, RDW 13.8, MPV 11.2 H, Gran % 58.8, Lymphocytes % 18.3 L, Monocytes % 22.5 H, Eosinophils % 0.1, Basophils % 0.3, Absolute Granulocytes 5.4, Segmented Neutrophils 63, Absolute Lymphocytes 1.7, Lymphocytes 20 L, Monocytes 17 H, Absolute Monocytes 2.1 H, Absolute Eosinophils 0, Absolute Basophils 0, Platelet Estimate ADEQUATE , Polychromasia 1+, Ovalocytes FEW, Fld Total RBCs Counted 100 03/06/18 0025: APTT 74 H Vital Signs Date Time Temp Pulse Resp B/P B/P Pulse O2 O2 Flow FiO2 Mean Ox Delivery Rate 03/06 0819 30 03/06 0800 93 Ventilator 30% 03/06 0800 97.3 75 20 130/84 93 Ventilator 30% 03/06 0602 30 03/06 0552 80 124/84 03/06 0400 94 Ventilator 30% 03/06 0332 30 03/06 0019 30 03/06 0000 98.0 66 20 110/68 94 Ventilator 30% 03/06 0000 94 Ventilator 30% 03/05 2325 71 114/68 03/05 2233 30 03/05 2000 97 Ventilator 30% 03/05 1957 30 03/05 1810 79 116/80 03/05 1628 30 03/05 1600 97.9 66 20 94/00 93 Ventilator 30% 03/05 1600 93 Ventilator 30% 03/05 1415 30 03/05 1243 82 126/0 03/05 1200 97 Ventilator 30% 03/05 1135 30 Intake & Output 03/06 1600 03/06 0800 03/06 0000 Intake Total 1392 1525.8 Output Total 400 340 Balance 992 1185.8 Intake, IV 1239 1064.8 Intake, Oral 0 Intake, Tube 28 111 Feeding Intake, Tube 125 350 Irrigant Number 0 Bowel Movements Output, Urine 400 340 Patient 227 lb Weight Weight Bed scale Measurement Method Exam General Appearance: sedated, intubated Head: evidence of injury, ecchymosis Neck: normal inspection, supple Respiratory: normal breath sounds, lungs clear, intubated Cardiovascular: irregularly irregular Gastrointestinal: normal bowel sounds, soft, non-tender, no organomegaly Extremities: R leg with faints pulses on doppler. Warm, with good color. Current Medications: Current Medications Sig/Louise Start time Last Medication Dose Route Stop Time Status Admin Ampicillin Sodium/ 3,000 MG Q6 02/27 1200 DC 03/05 Sulbactam Sodium IV 03/06 0100 2323 Sodium Chloride 100 ML Argatroban 250 MG Q24H 03/03 1530 DC 03/04 Sodium Chloride 250 ML IV 1636 Atorvastatin Calcium 40 MG 1700 03/01 1700 AC 03/05 PO 1804 Dexmedetomidine HCl 400 MCG Q5H 03/05 1630 AC 03/06 Sodium Chloride 96 ML IV 0644 Dexmedetomidine HCl 400 MCG Q19H 03/04 1100 DC 03/05 Sodium Chloride 96 ML IV 03/05 1629 1030 Dextrose/Sodium 1,000 ML Q13H 03/04 1415 AC 03/06 Chloride IV 0546 Docusate Sodium 100 MG DAILY NEEDED 03/02 0930 AC 03/02 PO 1057 Famotidine 20 MG BID 03/06 2100 AC PO Heparin Sodium 25,000 UNIT Q24H 03/05 1615 AC 03/05 (Porcine) IV 1839 Sodium Chloride 500 ML Levetiracetam 1,000 MG Q8 03/06 1400 AC G TUBE Levetiracetam 1,000 MG Q8 03/04 1400 DC 03/06 N/A 1 UNIT IV 0551 Metoprolol Tartrate 25 MG BID 03/06 2100 DC PO Metoprolol Tartrate 12.5 MG BID 03/06 2100 AC PO Metoprolol Tartrate 5 MG Q6 03/02 1800 DC 03/06 IV 0552 Pantoprazole Sodium 40 MG DAILY 02/26 2035 DC 03/06 IV 0749 Polyethylene Glycol 17 GM DAILY PRN 03/02 0930 AC 03/03 PO 0839 Potassium Chloride 20 MEQ ONCE ONE 03/06 0730 DC 03/06 PO 03/06 0731 0750 Senna 187 MG AT BEDTIME PRN 03/02 0930 AC 03/02 PO 1057 Valproate Sodium 1,000 MG Q12H 03/04 1130 DC 03/05 Sodium Chloride 100 ML IV 2233 Valproic Acid 1,000 MG BID 03/06 0936 AC PO Impression/Plan Impression/Problem List Impression: 67 y/o M with PMH of chronic seizure disorder on valproate, CAD s/p CABG and bovine aortic valve replacement in 2013, Hodgkins lymphoma, HTN and HLD that was brought to the ED after he was /found to be unresponsiveness. The patient was at his baseline on 02/25. On the ED the patient's respiratory drive was poor and he was intubated. The EKG on the ED showed transient A-fib that converted to SR and reconverted to Afib. He was admitted to the ICU for management of his acute seizure episode p/b status epilepticus s/p intubation (day #8). Of note on 02/22, patient had a work related accident where he fell and landed on his face - CXR shows nasal bones and septum fracture. He also presented with a L nondisplaced supracondylear fracture. IMPRESSIONS #Chronic Seizure Disorder, p/b status epilepticus, on keppra and valproate #R SFA Occlusion #Acute Resp Distress s/p intubation (day #8) #New onset thrombocytopenia in the setting of heparin drip, factitious #PEPPER #Afib #L nondisplaced transcondylear fracture, splinted #Nasal Bone and Septum Fracture #Chronic Seizure Disorder, p/b status epilepticus Pt has a long standing history of seizure disorder, compliant on his valproic acid as evidenced by records and laboratory studies (Urine Valproate in therapeutic range). Urine toxicology showed evidence of cocaine use, could have played a part into this latest seizure episode. Head CT (02/26) shows a chronic arachnoid cyst on the left anterior middle cranial fossa with some slight interval increase in size. He does have a history of ETOH use and while his serum alcohol was not impressive, a withdrawal induced seizure could still have been the culprit. Neurology was consulted and EEG showed no seizure activity, a follow up EEG showed diffuse cerebral dysfx like the first one. He is now back to responding to verbal commands, on precedex due to significant motor agitation over the weekend. -Pt on keppra and valproate, now switched from IV to liquid thru OG tube -On precedex, sedation holidays #R SFA Occlusion Pt has been on a-fib since admission to the ICU - he was off systemic anticoagulation due to his multiple fractures in the nasal area and L nondisplaced transcondylear fracture. An arterial doppler U/S showed a R SFA occlusion. He has now been starting on heparin drip as benefits>risks. Vascular surgery was consulted and a CTA done on 03/01 that showed segmental occlusions of the distal right SFA. Latest doppler 03/04 showed interval worsening - vascular plan for R leg angiogram p/b embolectomy. -R leg angiogram 03/07 -f/u [facility] surgery recommendation #Acute Resp Distress s/p intubation (day #8) On arrival, pt had poor inspiratory effort and there was concern for worsening status. Pt started on precedex due to agitation requiring reintubation over the weekend. Aspiration PNA is likely due to his seizure activity and subsequent difficult intubation; CXR is not impressive for PNA, though respiratory culture growing pansensitive E. coli and Staph. Febrile 101.2 on 02/27, back to being afebrile -- He has completed 7 day course of Unasyn. Off abx - he remains afebrile with a normal WBC. -IV Unasyn 3g q6 (DAY #7- Complete) -Off abx -Weaning trials #New onset thrombocytopenia in the setting of heparin drip, factitious Pt with low PLT. PF4/ANEESH ordered and sent out, came back negative. The clumping on both EDTA and citrate tubes appeared to have been the cause. Latest PLT count was 122. He is off argatroban and back on heparin. -f/u PLT count -Off argatroban, on heparin gtt -HIT work up negative #Afib pt currently on afib. He has an extensive cardiac history of CAD s/p CABG, bioprosthetic valve replacement, HTN/HLD with a positive urine tox for cocaine. Echo (02/27) shows an aortic bioprostethic valve with no significant insufficiency though it was not visualized optimally. LVEF is 60%. Cardiology is following. Had a nonsustained wide complex tachycardia during the night 03/02. 11-beat run of vtach noted on 03/03, STAT ekg/trop negative for ischemic changes. No other telemetry events since then. -Metoprolol 12.5 mg BID #L nondisplaced transcondylear fracture, splinted On arrival, a L nondisplaced transcondylear fracture was noted. Pt is currently splinted. Orthopedics were consulted, and as per their recommendation, due to the patient's current status, a nonoperative management is recommended, though can be reconsidered on improvement of his status. Ice packs can be applied around the elbow. As per vascular surgery's recommendation, a CTA of L arm was ordered, showing possible occlusions within the deep and superficial arches of the hand. -Splint to remain -Ice packs around the elbow if needed #PEPPER, resolved Pt with BUN/Cr of 35/1.6 on admit, 26/1.2 now. FULL CODE DVT PPX: MECH, PHARM TUBE FEEDS - jevity 1.2, goal of 80cc/hr Problem List: 1. Status epilepticus 2. Seizure 3. Alcohol dependence with withdrawal Pain Ratin (NOT ASSESSED - SEDATED) Tomorrow's Labs & Rationales: cbc icu lab bundle Plan DVT/Prophylaxis: mechanical, pharmacological Plan DVT/Prophylaxis: mechanical, pharmacological
--- NOTE | 2018-03-06 09:08 | PN- Cardiology ---
Subjective Subjective: Patient remains intubated and sedated. He does occasionally respond to simple commands. Argatroban was discontinued and heparin was resumed Review of Systems: Unobtainable patient intubated and sedated Objective Vital Signs and I&Os Vital Signs Date Time Temp Pulse Resp B/P B/P Pulse O2 O2 Flow FiO2 Mean Ox Delivery Rate 03/06 0819 30 03/06 0800 93 Ventilator 30% 03/06 0800 97.3 75 20 130/84 93 Ventilator 30% 03/06 0602 30 03/06 0552 80 124/84 03/06 0400 94 Ventilator 30% 03/06 0332 30 03/06 0019 30 03/06 0000 98.0 66 20 110/68 94 Ventilator 30% 03/06 0000 94 Ventilator 30% 03/05 2325 71 114/68 03/05 2233 30 03/05 2000 97 Ventilator 30% 03/05 1957 30 03/05 1810 79 116/80 03/05 1628 30 03/05 1600 97.9 66 20 94/00 93 Ventilator 30% 03/05 1600 93 Ventilator 30% 03/05 1415 30 03/05 1243 82 126/0 03/05 1200 97 Ventilator 30% 03/05 1135 30 Intake & Output 03/06 1600 03/06 0800 03/06 0000 03/05 1600 03/05 0800 03/05 0000 Intake Total 1392 1525.8 837 1116 705 Output Total 400 340 300 280 310 Balance 992 1185.8 537 836 395 Intake, IV 1239 1064.8 837 1116 705 Intake, Oral 0 Intake, Tube 28 111 Feeding Intake, Tube 125 350 Irrigant Number 0 1 2 2 Bowel Movements Output, 50 100 Gastric Drainage Output, Urine 400 340 300 230 210 Patient 227 lb 226 lb Weight Weight Bed scale Bed scale Measurement Method Physical Exam: Patient is a well-developed well-nourished male intubated and sedated HEENT is unremarkable Neck is supple there is no JVD Lungs are clear Heart irregular rhythm S1 and S2 are normal no murmurs gallops or rubs Abdomen bowel sounds positive Extremities trace edema Current Medications: Current Medications Sig/Louise Start time Last Medication Dose Route Stop Time Status Admin Ampicillin Sodium/ 3,000 MG Q6 02/27 1200 DC 03/05 Sulbactam Sodium IV 03/06 0100 2323 Sodium Chloride 100 ML Argatroban 250 MG Q24H 03/03 1530 DC 03/04 Sodium Chloride 250 ML IV 1636 Atorvastatin Calcium 40 MG 1700 03/01 1700 AC 03/05 PO 1804 Dexmedetomidine HCl 400 MCG Q5H 03/05 1630 AC 03/06 Sodium Chloride 96 ML IV 0644 Dexmedetomidine HCl 400 MCG Q19H 03/04 1100 DC 03/05 Sodium Chloride 96 ML IV 03/05 1629 1030 Dextrose/Sodium 1,000 ML Q13H 03/04 1415 03/06 Chloride IV 0546 Docusate Sodium 100 MG DAILY NEEDED 03/02 0930 AC 03/02 PO 1057 Heparin Sodium 25,000 UNIT Q24H 03/05 1615 AC 03/05 (Porcine) IV 1839 Sodium Chloride 500 ML Levetiracetam 1,000 MG Q8 03/04 1400 AC 03/06 N/A 1 UNIT IV 0551 Metoprolol Tartrate 5 MG Q6 03/02 1800 AC 03/06 IV 0552 Pantoprazole Sodium 40 MG DAILY 02/26 2035 AC 03/06 IV 0749 Polyethylene Glycol 17 GM DAILY PRN 03/02 0930 03/03 PO 0839 Potassium Chloride 20 MEQ ONCE ONE 03/06 07 FL 03/06 PO 03/06 0731 0750 Senna 187 MG AT BEDTIME PRN 03/02 0930 AC 03/02 PO 1057 Valproate Sodium 1,000 MG Q12H 03/04 1130 03/05 Sodium Chloride 100 ML IV 2233 Results Last 48 Hrs of Labs/Mics: Laboratory Tests 03/06/18 0500: APTT Cancelled 03/06/18 0400: Anion Gap 10, Estimated GFR > 60, Glucose 122 H, Calcium 7.7 L, Phosphorus 3.3 , Magnesium 2.0, Total Bilirubin 0.7, AST 26, ALT 25, Albumin 2.4 L, CBC w Diff MAN DIFF ORDERED, RBC 3.60 L, MCV 90.4, MCH 31.1 H, MCHC 34.4, RDW 13.8, MPV 11.2 H, Gran % 58.8, Lymphocytes % 18.3 L, Monocytes % 22.5 H, Eosinophils % 0.1, Basophils % 0.3, Absolute Granulocytes 5.4, Segmented Neutrophils 63, Absolute Lymphocytes 1.7, Lymphocytes 20 L, Monocytes 17 H, Absolute Monocytes 2.1 H, Absolute Eosinophils 0, Absolute Basophils 0, Platelet Estimate ADEQUATE , Polychromasia 1+, Ovalocytes FEW, Fld Total RBCs Counted 100 03/06/18 0025: APTT 74 H 03/05/18 0830: CBC w Diff MAN DIFF ORDERED, RBC 3.74 L, MCV 90.0, MCH 31.1 H, MCHC 34.6, RDW 14.1, MPV 10.7 H, Gran % 58.5, Lymphocytes % 15.6 L, Monocytes % 25.7 H, Eosinophils % 0.1, Basophils % 0.1, Absolute Granulocytes 5.6, Segmented Neutrophils 54, Band Neutrophils 5, Absolute Lymphocytes 1.5, Lymphocytes 15 L, Monocytes 26 H, Absolute Monocytes 2.5 H, Absolute Eosinophils 0, Absolute Basophils 0, Platelet Estimate ADEQUATE, Normocytic RBCs VERIFIED, Normochromic RBCs VERIFIED 03/05/18 0530: Anion Gap 10, Estimated GFR > 60, Glucose 114 H, Calcium 7.7 L, Phosphorus 4.0 , Magnesium 2.0, Total Bilirubin 0.7, AST 25, ALT 26, Albumin 2.2 L, APTT 80 H , CBC w Diff MAN DIFF ORDERED, RBC 3.48 L, MCV 89.7, MCH 31.0, MCHC 34.5, RDW 14.1, Gran % 55.5, Lymphocytes % 19.4 L, Monocytes % 24.9 H, Eosinophils % 0, Basophils % 0.2, Absolute Granulocytes 4.5, Segmented Neutrophils 58, Band Neutrophils 7 H, Absolute Lymphocytes 1.6, Lymphocytes 20 L, Monocytes 14 H, Absolute Monocytes 2.0 H, Absolute Eosinophils 0, Absolute Basophils 0, Metamyelocytes 1, Platelet Estimate , Normocytic RBCs VERIFIED, Normochromic RBCs VERIFIED Telemetry personally reviewed atrial fibrillation with PVCs Assessment/Plan Assessment/Plan 1. Seizure disorder 2. Atrial fibrillation, currently not on chronic AC due to seizure disorder with refractory polysubstance abuse 3. Coronary artery disease status post CABG 4. Bioprosthetic aortic valve 5. Nonsustained wide complex tachycardia 6. Peripheral vascular disease 7. 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 polysubstance abuse, including cocaine 9. Hypertension 10. Hyperlipidemia 11. ?thrombocytopenia stable Recommendations 1. Continue heparin monitoring platelets closely 2. Resume aspirin if platelets remain stable 3. Plan is for angiogram due to right SFA occlusion tomorrow 4. Continue IV metoprolol for rate control Continue telemetry? Yes
--- NOTE | 2018-03-06 09:16 | PN- CRCU ---
Subjective HPI/Critical Care Issues: Pt. seen and examined at bedside this am. Due to agitation, precedex was increased to 1.0 mcgs/kg/hr, up from 0.7 overnight. He is however responding to verbal commands and nodding with his head. R foot feeling warm, though pulses are faint with doppler. Justin Objective Current Medications: Current Medications Sig/Louise Start time Last Medication Dose Route Stop Time Status Admin Ampicillin Sodium/ 3,000 MG Q6 02/27 1200 DC 03/05 Sulbactam Sodium IV 03/06 0100 2323 Sodium Chloride 100 ML Argatroban 250 MG Q24H 03/03 1530 DC 03/04 Sodium Chloride 250 ML IV 1636 Atorvastatin Calcium 40 MG 1700 03/01 1700 AC 03/05 PO 1804 Dexmedetomidine HCl 400 MCG Q5H 03/05 1630 AC 03/06 Sodium Chloride 96 ML IV 0644 Dexmedetomidine HCl 400 MCG Q19H 03/04 1100 DC 03/05 Sodium Chloride 96 ML IV 03/05 1629 1030 Dextrose/Sodium 1,000 ML Q13H 03/04 1415 AC 03/06 Chloride IV 0546 Docusate Sodium 100 MG DAILY NEEDED 03/02 0930 AC 03/02 PO 1057 Heparin Sodium 25,000 UNIT Q24H 03/05 1615 AC 03/05 (Porcine) IV 1839 Sodium Chloride 500 ML Levetiracetam 1,000 MG Q8 03/04 1400 AC 03/06 N/A 1 UNIT IV 0551 Metoprolol Tartrate 25 MG BID 03/06 2100 UNVr PO Metoprolol Tartrate 5 MG Q6 03/02 1800 DC 03/06 IV 0552 Pantoprazole Sodium 40 MG DAILY 02/26 2035 AC 03/06 IV 0749 Polyethylene Glycol 17 GM DAILY PRN 03/02 0930 AC 03/03 PO 0839 Potassium Chloride 20 MEQ ONCE ONE 03/06 0730 DC 03/06 PO 03/06 0731 0750 Senna 187 MG AT BEDTIME PRN 03/02 0930 AC 03/02 PO 1057 Valproate Sodium 1,000 MG Q12H 03/04 1130 AC 03/05 Sodium Chloride 100 ML IV 2233 Vital Signs & I&O Last 24 Hrs of Vitals and I&O: Vital Signs Date Time Temp Pulse Resp B/P B/P Pulse O2 O2 Flow FiO2 Mean Ox Delivery Rate 03/06 0819 30 03/06 0800 93 Ventilator 30% 03/06 0800 97.3 75 20 130/84 93 Ventilator 30% 03/06 0602 30 03/06 0552 80 124/84 03/06 0400 94 Ventilator 30% 03/06 0332 30 03/06 0019 30 03/06 0000 98.0 66 20 110/68 94 Ventilator 30% 03/06 0000 94 Ventilator 30% 03/05 2325 71 114/68 03/05 2233 30 03/05 2000 97 Ventilator 30% 03/05 1957 30 03/05 1810 79 116/80 03/05 1628 30 03/05 1600 97.9 66 20 94/00 93 Ventilator 30% 03/05 1600 93 Ventilator 30% 03/05 1415 30 03/05 1243 82 126/0 03/05 1200 97 Ventilator 30% 03/05 1135 30 Intake & Output 03/06 1600 03/06 0800 03/06 0000 Intake Total 1392 1525.8 Output Total 400 340 Balance 992 1185.8 Intake, IV 1239 1064.8 Intake, Oral 0 Intake, Tube 28 111 Feeding Intake, Tube 125 350 Irrigant Number 0 Bowel Movements Output, Urine 400 340 Patient 227 lb Weight Weight Bed scale Measurement Method Laboratory Tests 03/06 03/06 03/06 0500 0400 0025 Chemistry Sodium (137 - 145 mmol/L) 143 Potassium (3.5 - 5.1 mmol/L) 3.9 Chloride (98 - 107 mmol/L) 109 H Carbon Dioxide (22 - 30 mmol/L) 24 Anion Gap (5 - 16) 10 BUN (9 - 20 mg/dL) 23 H Creatinine (0.7 - 1.2 mg/dL) 1.2 Estimated GFR (>60 ml/min) > 60 Glucose (65 - 99 mg/dL) 122 H Calcium (8.4 - 10.2 mg/dL) 7.7 L Phosphorus (2.5 - 4.5 mg/dL) 3.3 Magnesium (1.6 - 2.3 mg/dL) 2.0 Total Bilirubin (0.2 - 1.3 mg/dL) 0.7 AST (17 - 59 U/L) 26 ALT (21 - 72 U/L) 25 Albumin (3.5 - 5.0 g/dL) 2.4 L Coagulation APTT (25 - 37 SEC) Cancelled 74 H Hematology CBC w Diff MAN DIFF ORDERED WBC (4.8 - 10.8 /CUMM) 9.1 RBC (4.70 - 6.10 /CUMM) 3.60 L Hgb (14.0 - 18.0 G/DL) 11.2 L Hct (42 - 52 %) 32.5 L MCV (80.0 - 94.0 FL) 90.4 MCH (27.0 - 31.0 PG) 31.1 H MCHC (33.0 - 37.0 G/DL) 34.4 RDW (11.5 - 14.5 %) 13.8 Plt Count (130 - 400 /CUMM) 122 L MPV (7.4 - 10.4 FL) 11.2 H Gran % (42.2 - 75.2 %) 58.8 Lymphocytes % (20.5 - 51.1 %) 18.3 L Monocytes % (1.7 - 9.3 %) 22.5 H Eosinophils % (0 - 5 %) 0.1 Basophils % (0.0 - 2.0 %) 0.3 Absolute Granulocytes (1.4 - 6.5 /CUMM) 5.4 Segmented Neutrophils (42.2 - 75.2 %) 63 Absolute Lymphocytes (1.2 - 3.4 /CUMM) 1.7 Lymphocytes (20.5 - 51.1 %) 20 L Monocytes (1.7 - 9.3 %) 17 H Absolute Monocytes (0.10 - 0.60 /CUMM) 2.1 H Absolute Eosinophils (0.0 - 0.7 /CUMM) 0 Absolute Basophils (0.0 - 0.2 /CUMM) 0 Platelet Estimate (ADEQUATE) ADEQUATE Polychromasia 1+ Ovalocytes FEW Other Body Source Fld Total RBCs Counted (%) 100 03/05 03/05 0830 0530 Chemistry Sodium (137 - 145 mmol/L) 144 Potassium (3.5 - 5.1 mmol/L) 4.0 Chloride (98 - 107 mmol/L) 111 H Carbon Dioxide (22 - 30 mmol/L) 24 Anion Gap (5 - 16) 10 BUN (9 - 20 mg/dL) 26 H Creatinine (0.7 - 1.2 mg/dL) 1.2 Estimated GFR (>60 ml/min) > 60 Glucose (65 - 99 mg/dL) 114 H Calcium (8.4 - 10.2 mg/dL) 7.7 L Phosphorus (2.5 - 4.5 mg/dL) 4.0 Magnesium (1.6 - 2.3 mg/dL) 2.0 Total Bilirubin (0.2 - 1.3 mg/dL) 0.7 AST (17 - 59 U/L) 25 ALT (21 - 72 U/L) 26 Albumin (3.5 - 5.0 g/dL) 2.2 L Coagulation APTT (25 - 37 SEC) 80 H Hematology CBC w Diff MAN DIFF ORDERED MAN DIFF ORDERED WBC (4.8 - 10.8 /CUMM) 9.5 8.1 RBC (4.70 - 6.10 /CUMM) 3.74 L 3.48 L Hgb (14.0 - 18.0 G/DL) 11.6 L 10.8 L Hct (42 - 52 %) 33.7 L 31.2 L MCV (80.0 - 94.0 FL) 90.0 89.7 MCH (27.0 - 31.0 PG) 31.1 H 31.0 MCHC (33.0 - 37.0 G/DL) 34.6 34.5 RDW (11.5 - 14.5 %) 14.1 14.1 Plt Count (130 - 400 /CUMM) 140 MPV (7.4 - 10.4 FL) 10.7 H Gran % (42.2 - 75.2 %) 58.5 55.5 Lymphocytes % (20.5 - 51.1 %) 15.6 L 19.4 L Monocytes % (1.7 - 9.3 %) 25.7 H 24.9 H Eosinophils % (0 - 5 %) 0.1 0 Basophils % (0.0 - 2.0 %) 0.1 0.2 Absolute Granulocytes (1.4 - 6.5 /CUMM) 5.6 4.5 Segmented Neutrophils (42.2 - 75.2 %) 54 58 Band Neutrophils (0.0 - 5.0 %) 5 7 H Absolute Lymphocytes (1.2 - 3.4 /CUMM) 1.5 1.6 Lymphocytes (20.5 - 51.1 %) 15 L 20 L Monocytes (1.7 - 9.3 %) 26 H 14 H Absolute Monocytes (0.10 - 0.60 /CUMM) 2.5 H 2.0 H Absolute Eosinophils (0.0 - 0.7 /CUMM) 0 0 Absolute Basophils (0.0 - 0.2 /CUMM) 0 0 Metamyelocytes (0.0 - 1.0 %) 1 Platelet Estimate (ADEQUATE) ADEQUATE Normocytic RBCs VERIFIED VERIFIED Normochromic RBCs VERIFIED VERIFIED Impression/Plan Impression/Plan Impression/Plan: СЕРГЕЙ, Eomi Chest clear cvs aure, afib abd soft No edema Fracture left Ue Pupils small rt le colder than rt much improved since yesterday Rest less and nonpurposeful movements This is a 67-year-old gentleman with history of hypertension, hyperlipidemia, CABG, previous bovine aortic valve replacement, previous history of Hodgkin's lymphoma in the late with previous chemoradiation therapy leading to significant neuropathy, significant medical marijuana usage, alcohol use on and off, multiple surgeries and chronic pain, previous seizure disorder started in 2014 and since then followed by [facility] seizure [facility] (compliant) here with * Sig encephelopathy - Admitted with Witnessed seizure activity and a fall (EEG no further seizures and rapid improvement of seizure on keppra and valproic acid ). Patient does have a large arachnoid cyst in his left temporal area with mass effect to the underlying temporal area (appears stable since 2014), Pt with previous history of sig etoh use, marijuana use and now with urine tox positive for cocaine and seizure from cocaine vs withdrawal and other causes including cocaine induced cat scan tech injury vs small vessel cerebral ishemia. Pt now on precedex * Respiratory failure due to seizure activity and encephelopathy, patient has been intubated. May have aspiration pna as well as he was a difficult intubation. Ecoli and Staph in the sputum and responded to abx - now better and can wean but his mental status is preventing the wean. 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 PAfib since admission and anticoag started on 03/01, as the clotting risk out weighs the bleeding risks at this time (anticoag held till then due to sig bleeding risk, ie unstable fracture, altered mental status, recent fall, fracture nasal, recurrent seizures upon admission and hematoma and swelling of the left upper arm from displaced humerus fracture) (cta left ue shows poor flow in the palm * Stable Thrombocytopenia - HIT neg * Ileus now with s/p sig bm * Significant alcohol use by history with probable dts, Marijuana, sig cocaine in the urine upon admission * Sig Heart disease with previous CABG and aortic valve replacement with bioprosthetic valve with previous arrythmia, now in pafib * Previous history of nephrolithiasis, now with john (improving) * Now sig delirium on and off off ativan and narcotics on precedex * Nasal fracture and displaced transcondylar fracture of distal left humerus, conservative rx per ortho * 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
[2018-03-06 12:00] VITALS: BP 134/88
[2018-03-06 14:34] LABS: PTT 47 SEC (25-37)
--- NOTE | 2018-03-06 15:16 | RADIOLOGY REPORT ---
EXAMINATION: XR PORTABLE CHEST CLINICAL INFORMATION: Interval follow up. Intubated patient. COMPARISON: Multiple prior chest x-rays, most recent of which is dated 03/05/2018. TECHNIQUE: Portable AP semierect view of the chest was obtained. A repeat chest x-ray was subsequently obtained since the lung apices are not fully included on initial chest x-ray. FINDINGS: The patient is status post median sternotomy and presumably CABG surgery. Multiple EKG leads overlie the chest. The cardiomediastinal silhouette is enlarged, unchanged. Right jugular central venous line tip is in the distal right brachiocephalic/superior vena cava junction. Endotracheal tube tip is approximately 5.7 cm above the seven. Enteric tube is poorly visualized and can be followed down to just above the GE junction. Low lung volumes are again seen with bibasilar opacities, likely representing atelectasis. Trace pleural effusions may be present. No pneumothorax is seen. No evidence of pulmonary edema. Included bony structures are grossly unremarkable. IMPRESSION: 1. Endotracheal tube tip approximately 5.7 cm above the seven. 2. Enteric tube poorly visualized. 3. Right jugular central venous line tip in the distal right brachiocephalic/superior vena cava junction. 4. No significant change in bibasilar opacities, likely representing atelectasis plus/minus associated trace pleural effusions.
[2018-03-06 16:00] VITALS: BP 148/76
[2018-03-06 22:12] LABS: PTT 66 SEC (25-37)
[2018-03-07] VITALS: BP 160/98
[2018-03-07 05:25] LABS: ABSOLUTE BASOPHIL COUNT 0 /CUMM (0.0-0.2); ABSOLUTE EOSINOPHIL COUNT 0 /CUMM (0.0-0.7); ABSOLUTE GRANULOCYTE CT 4.7 /CUMM (1.4-6.5); ABSOLUTE LYMPH COUNT 1.5 /CUMM (1.2-3.4); BASOPHIL % 0.2 % (0.0-2.0); EOSINOPHIL % 0.2 % (0-5); GRANULOCYTE % 56.8 % (42.2-75.2); HEMATOCRIT 31.2 % (42-52); MEAN CORPUSCULAR HGB 31.4 PG (27.0-31.0); MEAN CORPUSCULAR HGB CONC 34.8 G/DL (33.0-37.0); MEAN CORPUSCULAR VOLUME 90.2 FL (80.0-94.0); MEAN PLATELET VOLUME 10.8 FL (7.4-10.4); RBC DISTRIBUTION WIDTH 13.8 % (11.5-14.5); RED BLOOD CELL CT 3.46 /CUMM (4.70-6.10); WHITE BLOOD CELL COUNT 8.3 /CUMM (4.8-10.8)
[2018-03-07 06:27] LABS: PLATELET COUNT 142 /CUMM (130-400)
[2018-03-07 08:00] VITALS: BP 130/90
--- NOTE | 2018-03-07 08:25 | RADIOLOGY REPORT ---
EXAMINATION: XR PORTABLE CHEST CLINICAL INFORMATION: Interval follow-up. Intubated patient. COMPARISON: Chest x-ray dated 03/06/2018. TECHNIQUE: Portable AP semierect view of the chest was obtained. FINDINGS: An endotracheal tube is in place with tip 8 cm above the seven. A right jugular central venous line is in place with tip at the right brachiocephalic and SVC junction. Multiple EKG leads overlie the chest. Median sternotomy wires are seen in place. The cardiomediastinal silhouette remains enlarged. Low lung volumes are again seen with bibasilar parenchymal opacities, unchanged from prior study, likely representing atelectasis. The left CP angle is not fully included on this exam. No evidence of pulmonary edema or pneumothorax. Bony structures unremarkable. IMPRESSION: 1. Endotracheal tube tip is 8 cm above the seven. 2. Right jugular central venous line tip is at the right brachiocephalic and SVC junction. 3. No change in bibasilar opacities, likely representing atelectatic changes.
--- NOTE | 2018-03-07 08:38 | PN- Vascular Surgery ---
Surgical Brief Attending Note Brief Attending Note: 67 y/o m w/ significant hx of cad, sz disorder, polysubstance abuse currently intubated on sedation after found down from presumed sz. Vascular surgery consulted for cool right leg. CTA shows occlusion of the sfa-- this may be acute on chronic disease. Planned for angiogram of the right leg today however this morning the patient had 20 beats of v tach and cardiology recommended not to proceed to or. Pt seen and examined both of his legs appear to be cool and there is some motteling but he maintains bilateral pt signals in the feet. He does not have acutely threatened limbs at this point and I agree with cardiology not to proceed with angiogram until cause of the VTACh can be futher investigated. I will await cardiology clearance prior to peforming angiogram. continue AC for now.
--- NOTE | 2018-03-07 08:40 | PN- Resident CRCU ---
Subjective HPI/CRCU Issues: #[id number] hypercarbic respiratory failure in the setting of end-stage COPD #Acute COPD exacerbation #Non-insulin dependant DM #Hyperlipidemia #H/o cocaine abuse 24 Hour Events: Pt was seen and examined this am. Got 2 mg ativan overnight due to agitation. He is sedated, not responding to commands or opening his eyes to noxious stimuli. His extremities feel cooler today compared to yesterday. Around 8 am had 21-beat run of non-sustained monomorphic ventricular tachycardia ; His vitals remain stable, though his HR is in the borderline 60s- his precedex was stopped, cardiology consulted, and he was started on amiodarone drip. He was scheduled to go for an angiogram today though it has now been cancelled. Vascular surgery has been notified of recent developments. was updated on his condition. Her contact information: Brandy Hendricks - Objective Vital Signs & I&O Last 8 Hrs of Vitals and I&O: Laboratory Tests 03/07/18 0850: APTT 37 03/07/18 0425: Anion Gap 11, Estimated GFR > 60, Glucose 112 H, Calcium 7.6 L, Phosphorus 3.2 , Magnesium 2.0, Total Bilirubin 0.6, AST 30, ALT 28, Albumin 2.3 L, APTT Cancelled, CBC w Diff NO MAN DIFF REQ, RBC 3.46 L, MCV 90.2, MCH 31.4 H, MCHC 34.8, RDW 13.8, MPV 10.8 H, Gran % 56.8, Lymphocytes % 18.7 L, Monocytes % 24.1 H, Eosinophils % 0.2, Basophils % 0.2, Absolute Granulocytes 4.7, Absolute Lymphocytes 1.5, Absolute Monocytes 2.0 H, Absolute Eosinophils 0, Absolute Basophils 0 03/06/18 2055: APTT 66 H 03/06/18 1225: APTT 47 H Vital Signs Date Time Temp Pulse Resp B/P B/P Pulse O2 O2 Flow FiO2 Mean Ox Delivery Rate 03/07 0909 66 133/94 03/07 0819 30 03/07 0612 30 03/07 0400 95 Ventilator 30% 03/07 0303 30 03/07 0115 30 03/07 0000 98.1 80 24 160/98 98 Ventilator 30% 03/07 0000 98 Ventilator 30% 03/06 2209 30 03/06 2025 75 144/95 03/06 2000 96 Ventilator 30% 03/06 1900 30 03/06 1623 30 03/06 1600 95 Ventilator 30% 03/06 1600 97.7 66 20 148/76 95 Ventilator 30% 03/06 1435 30 03/06 1200 98.0 91 24 134/88 96 Ventilator 30% 03/06 1200 98 Ventilator 30% 03/06 1120 30 Exam General Appearance: sedated, intubated Head: evidence of injury, ecchymosis Neck: normal inspection, supple, right IJ tlc noted. No erythema/warmth surrounding it Respiratory: normal breath sounds, no respiratory distress Cardiovascular: bradycardia, irregularly irregular Gastrointestinal: normal bowel sounds, soft Extremities: cool extremities to touch R>L, pulses faint with doppler Current Medications: Current Medications Sig/Louise Start time Last Medication Dose Route Stop Time Status Admin Amiodarone HCl/ 360 MG Q12H 03/07 0830 AC 03/07 Dextrose IV 0909 N/A 1 UNIT Atorvastatin Calcium 40 MG 1700 03/01 1700 AC 03/06 PO 1719 Dexmedetomidine HCl 400 MCG Q3H 03/07 0830 DC 03/07 Sodium Chloride 96 ML IV 0811 Dexmedetomidine HCl 400 MCG Q5H 03/05 1630 DC 03/07 Sodium Chloride 96 ML IV 03/07 0829 0023 Dextrose/Sodium 1,000 ML Q13H 03/04 1415 AC 03/07 Chloride IV 0024 Docusate Sodium 100 MG DAILY NEEDED 03/02 0930 AC 03/02 PO 1057 Famotidine 20 MG BID 03/06 2100 AC 03/06 PO 2024 Heparin Sodium 4,132 UNIT ONCE ONE 03/06 1445 DC 03/06 (Porcine) IV 03/06 1446 1459 Heparin Sodium 25,000 UNIT Q24H 03/05 1615 AC 03/07 (Porcine) IV 0812 Sodium Chloride 500 ML Levetiracetam 1,000 MG Q8 03/06 1400 AC 03/07 G TUBE 0548 Lorazepam 2 MG ONE ONE 03/07 0830 DC 03/07 IV 03/07 0831 0909 Lorazepam 2 MG ONE ONE 03/07 0345 DC 03/07 IV 03/07 0346 0349 Metoprolol Tartrate 12.5 MG BID 03/06 2100 AC 03/06 PO 2024 Polyethylene Glycol 17 GM DAILY PRN 03/02 0930 AC 03/03 PO 0839 Potassium Chloride 20 MEQ ONCE ONE 03/07 0715 DC 03/07 PO 03/07 0716 0909 Senna 187 MG AT BEDTIME PRN 03/02 0930 AC 03/02 PO 1057 Valproic Acid 1,000 MG BID 03/06 0936 AC 03/06 PO 2025 CXR Findings: 03/07 EXAM TYPE: RAD - XRY-PORTABLE CHEST XRAY EXAMINATION: XR PORTABLE CHEST CLINICAL INFORMATION: Interval follow-up. Intubated patient. COMPARISON: Chest x-ray dated 03/06/2018. TECHNIQUE: Portable AP semierect view of the chest was obtained. FINDINGS: An endotracheal tube is in place with tip 8 cm above the seven. A right jugular central venous line is in place with tip at the right brachiocephalic and SVC junction. Multiple EKG leads overlie the chest. Median sternotomy wires are seen in place. The cardiomediastinal silhouette remains enlarged. Low lung volumes are again seen with bibasilar parenchymal opacities, unchanged from prior study, likely representing atelectasis. The left CP angle is not fully included on this exam. No evidence of pulmonary edema or pneumothorax. Bony structures unremarkable. IMPRESSION: 1. Endotracheal tube tip is 8 cm above the seven. 2. Right jugular central venous line tip is at the right brachiocephalic and SVC junction. 3. No change in bibasilar opacities, likely representing atelectatic changes. Impression/Plan Impression/Problem List Impression: 67 y/o M with PMH of chronic seizure disorder on valproate, CAD s/p CABG and bovine aortic valve replacement in 2013, Hodgkins lymphoma, HTN and HLD that was brought to the ED after he was /found to be unresponsiveness. The patient was at his baseline on 02/25. On the ED the patient's respiratory drive was poor and he was intubated. The EKG on the ED showed transient A-fib that converted to SR and reconverted to Afib. He was admitted to the ICU for management of his acute seizure episode p/b status epilepticus s/p intubation (day #9). Of note on 02/22, patient had a work related accident where he fell and landed on his face - CXR shows nasal bones and septum fracture. He also presented with a L nondisplaced supracondylear fracture. IMPRESSIONS #Chronic Seizure Disorder, p/b status epilepticus, on keppra and valproate #R SFA Occlusion #Acute Resp Distress s/p intubation (day #9) #Thrombocytopenia, factitious, resolving #PEPPER #Afib #L nondisplaced transcondylear fracture, splinted #Nasal Bone and Septum Fracture #Chronic Seizure Disorder, p/b status epilepticus Pt has a long standing history of seizure disorder, compliant on his valproic acid as evidenced by records and laboratory studies (Urine Valproate in therapeutic range). Urine toxicology showed evidence of cocaine use, could have played a part into this latest seizure episode. Head CT (02/26) shows a chronic arachnoid cyst on the left anterior middle cranial fossa with some slight interval increase in size. He does have a history of ETOH use and while his serum alcohol was not impressive, a withdrawal induced seizure could still have been the culprit. Neurology was consulted and EEG showed no seizure activity, a follow up EEG showed diffuse cerebral dysfx like the first one. He is now back to responding to verbal commands, on precedex due to significant motor agitation over the weekend. -Pt on keppra and valproate, now switched from IV to liquid thru OG tube -On precedex, sedation holidays #R SFA Occlusion Pt has been on a-fib since admission to the ICU - he was off systemic anticoagulation due to his multiple fractures in the nasal area and L nondisplaced transcondylear fracture. An arterial doppler U/S showed a R SFA occlusion. He has now been starting on heparin drip as benefits>risks. Vascular surgery was consulted and a CTA done on 03/01 that showed segmental occlusions of the distal right SFA. Latest doppler 03/04 showed interval worsening - vascular plan for R leg angiogram p/b embolectomy. Due to episodes of nonsustained monomorphic Vtach, surgery was cancelled pending cardiology's clearance. -R leg angiogram -f/u vas surgery recommendation #Acute Resp Distress s/p intubation (day #8) On arrival, pt had poor inspiratory effort and there was concern for worsening status. Pt started on precedex due to agitation requiring reintubation over the weekend. Aspiration PNA is likely due to his seizure activity and subsequent difficult intubation; CXR is not impressive for PNA, though respiratory culture growing pansensitive E. coli and Staph. Febrile 101.2 on 02/27, back to being afebrile -- He has completed 7 day course of Unasyn. Off abx - he remains afebrile with a normal WBC. --Off abx -IV Unasyn dc'd (DAY #7- Complete) -Weaning trials #Thrombocytopenia, factitious, resolving Pt with low PLT though samples were clumping. PF4/ANEESH ordered and sent out, he was started on agatroban drip; they came back negative. The clumping on both EDTA and citrate tubes appeared to have been the cause. Latest PLT count was 142. He is off argatroban and back on heparin. -f/u PLT count -Off argatroban, on heparin gtt -HIT work up negative #Afib pt currently on afib. He has an extensive cardiac history of CAD s/p CABG, bioprosthetic valve replacement, HTN/HLD with a positive urine tox for cocaine. Echo (02/27) shows an aortic bioprostethic valve with no significant insufficiency though it was not visualized optimally. LVEF is 60%. Cardiology is following. Had a nonsustained wide complex tachycardia during the night 03/02. 11-beat run of vtach noted on 03/03, and a 21 beat run on 03/07, STAT ekg/trop negative for ischemic changes. He was started on an amiodarone drip as a result of his latest episode. -Metoprolol 12.5 mg BID -Amiodarone drip #L nondisplaced transcondylear fracture, splinted On arrival, a L nondisplaced transcondylear fracture was noted. Pt is currently splinted. Orthopedics were consulted, and as per their recommendation, due to the patient's current status, a nonoperative management is recommended, though can be reconsidered on improvement of his status. Ice packs can be applied around the elbow. As per vascular surgery's recommendation, a CTA of L arm was ordered, showing possible occlusions within the deep and superficial arches of the hand. -Splint to remain -Ice packs around the elbow if needed #PEPPER, resolved Pt with BUN/Cr of 35/1.6 on admit, 19/1.0 now. FULL CODE DVT PPX: MECH, PHARM TUBE FEEDS - jevity 1.2, goal of 80cc/hr Problem List: 1. Status epilepticus 2. Seizure Pain Ratin (not assessed, sedated) Tomorrow's Labs & Rationales: cbc icu lab bundle Plan DVT/Prophylaxis: mechanical, pharmacological
--- NOTE | 2018-03-07 09:31 | PN- Pulmonary ---
Subjective HPI/Critical Care Issues: Pt was seen and examined this am. Got 2 mg ativan due to agitation. He is sedated, not responding to commands or opening his eyes to noxious stimuli. His extremities feel cooler today compared to yesterday. Around 8 am had 21-beat run of non-sustained monomorphic ventricular tachycardia ; His vitals remain stable, though his HR is in the borderline 60s- his precedex was stopped, cardiology consulted, and he was started on amiodarone drip. He was scheduled to go for an angiogram today though it has now been cancelled. Vascular surgery has been notified of recent developments. Heart rate dipping down to low rates to 50 s and amio now held by me (will discuss with cardio) Objective Current Medications: Current Medications Sig/Louise Start time Last Medication Dose Route Stop Time Status Admin Amiodarone HCl/ 360 MG Q12H 03/07 0830 AC 03/07 Dextrose IV 0909 N/A 1 UNIT Atorvastatin Calcium 40 MG 1700 03/01 1700 AC 03/06 PO 1719 Dexmedetomidine HCl 400 MCG Q3H 03/07 0830 DC 03/07 Sodium Chloride 96 ML IV 0811 Dexmedetomidine HCl 400 MCG Q5H 03/05 1630 DC 03/07 Sodium Chloride 96 ML IV 03/07 0829 0023 Dextrose/Sodium 1,000 ML Q13H 03/04 1415 AC 03/07 Chloride IV 0024 Docusate Sodium 100 MG DAILY NEEDED 03/02 0930 AC 03/02 PO 1057 Famotidine 20 MG BID 03/06 2100 AC 03/06 PO 2025 Heparin Sodium 4,132 UNIT ONCE ONE 03/06 1445 DC 03/06 (Porcine) IV 03/06 1446 1459 Heparin Sodium 25,000 UNIT Q24H 03/05 1615 AC 03/07 (Porcine) IV 0812 Sodium Chloride 500 ML Levetiracetam 1,000 MG Q8 03/06 1400 AC 03/07 G TUBE 0548 Levetiracetam 1,000 MG Q8 03/04 1400 DC 03/06 N/A 1 UNIT IV 0551 Lorazepam 2 MG ONE ONE 03/07 0830 DC 03/07 IV 03/07 0831 0909 Lorazepam 2 MG ONE ONE 03/07 0345 DC 03/07 IV 03/07 0346 0349 Metoprolol Tartrate 25 MG BID 03/06 2100 DC PO Metoprolol Tartrate 12.5 MG BID 03/06 2100 AC 03/06 PO 2024 Pantoprazole Sodium 40 MG DAILY 02/26 203 DC 03/06 IV 0749 Polyethylene Glycol 17 GM DAILY PRN 03/02 0930 AC 03/03 PO 0839 Potassium Chloride 20 MEQ ONCE ONE 03/07 0715 DC 03/07 PO 03/07 0716 0909 Senna 187 MG AT BEDTIME PRN 03/02 0930 AC 03/02 PO 1057 Valproate Sodium 1,000 MG Q12H 03/04 1130 DC 03/05 Sodium Chloride 100 ML IV 2233 Valproic Acid 1,000 MG BID 03/06 0936 AC 03/06 PO 2025 Vital Signs & I&O Last 24 Hrs of Vitals and I&O: Vital Signs Date Time Temp Pulse Resp B/P B/P Pulse O2 O2 Flow FiO2 Mean Ox Delivery Rate 03/07 0909 66 133/94 03/07 0819 30 03/07 0612 30 03/07 0400 95 Ventilator 30% 03/07 0303 30 03/07 0115 30 03/07 0000 98.1 80 24 160/98 98 Ventilator 30% 03/07 0000 98 Ventilator 30% 03/06 2209 30 03/06 2025 75 144/95 03/06 2000 96 Ventilator 30% 03/06 1900 30 03/06 1623 30 03/06 1600 95 Ventilator 30% 03/06 1600 97.7 66 20 148/76 95 Ventilator 30% 03/06 1435 30 03/06 1200 98.0 91 24 134/88 96 Ventilator 30% 03/06 1200 98 Ventilator 30% 03/06 1120 30 Intake & Output 03/07 1600 03/07 0800 03/07 0000 Intake Total 1098 1034 Output Total 800 550 Balance 298 484 Intake, IV 900 417 Intake, Oral 0 0 Intake, Other 205 Intake, Tube 73 262 Feeding Intake, Tube 125 150 Irrigant Number 0 0 Bowel Movements Output, Urine 800 550 Laboratory Tests 03/07 03/07 03/06 03/06 0850 0425 2054 1225 Chemistry Sodium (137 - 145 mmol/L) 140 Potassium (3.5 - 5.1 mmol/L) 3.9 Chloride (98 - 107 mmol/L) 107 Carbon Dioxide (22 - 30 mmol/L) 22 Anion Gap (5 - 16) 11 BUN (9 - 20 mg/dL) 19 Creatinine (0.7 - 1.2 mg/dL) 1.0 Estimated GFR (>60 ml/min) > 60 Glucose (65 - 99 mg/dL) 112 H Calcium (8.4 - 10.2 mg/dL) 7.6 L Phosphorus (2.5 - 4.5 mg/dL) 3.2 Magnesium (1.6 - 2.3 mg/dL) 2.0 Total Bilirubin (0.2 - 1.3 mg/dL) 0.6 AST (17 - 59 U/L) 30 ALT (21 - 72 U/L) 28 Albumin (3.5 - 5.0 g/dL) 2.3 L Coagulation APTT (25 - 37 SEC) Pending Cancelled 66 H 47 H Hematology CBC w Diff NO MAN DIFF REQ WBC (4.8 - 10.8 /CUMM) 8.3 RBC (4.70 - 6.10 /CUMM) 3.46 L Hgb (14.0 - 18.0 G/DL) 10.9 L Hct (42 - 52 %) 31.2 L MCV (80.0 - 94.0 FL) 90.2 MCH (27.0 - 31.0 PG) 31.4 H MCHC (33.0 - 37.0 G/DL) 34.8 RDW (11.5 - 14.5 %) 13.8 Plt Count (130 - 400 /CUMM) 142 MPV (7.4 - 10.4 FL) 10.8 H Gran % (42.2 - 75.2 %) 56.8 Lymphocytes % (20.5 - 51.1 %) 18.7 L Monocytes % (1.7 - 9.3 %) 24.1 H Eosinophils % (0 - 5 %) 0.2 Basophils % (0.0 - 2.0 %) 0.2 Absolute Granulocytes (1.4 - 6.5 /CUMM) 4.7 Absolute Lymphocytes (1.2 - 3.4 /CUMM) 1.5 Absolute Monocytes (0.10 - 0.60 /CUMM) 2.0 H Absolute Eosinophils (0.0 - 0.7 /CUMM) 0 Absolute Basophils (0.0 - 0.2 /CUMM) 0 03/06 03/06 03/06 0500 0400 0025 Chemistry Sodium (137 - 145 mmol/L) 143 Potassium (3.5 - 5.1 mmol/L) 3.9 Chloride (98 - 107 mmol/L) 109 H Carbon Dioxide (22 - 30 mmol/L) 24 Anion Gap (5 - 16) 10 BUN (9 - 20 mg/dL) 23 H Creatinine (0.7 - 1.2 mg/dL) 1.2 Estimated GFR (>60 ml/min) > 60 Glucose (65 - 99 mg/dL) 122 H Calcium (8.4 - 10.2 mg/dL) 7.7 L Phosphorus (2.5 - 4.5 mg/dL) 3.3 Magnesium (1.6 - 2.3 mg/dL) 2.0 Total Bilirubin (0.2 - 1.3 mg/dL) 0.7 AST (17 - 59 U/L) 26 ALT (21 - 72 U/L) 25 Albumin (3.5 - 5.0 g/dL) 2.4 L Coagulation APTT (25 - 37 SEC) Cancelled 74 H Hematology CBC w Diff MAN DIFF ORDERED WBC (4.8 - 10.8 /CUMM) 9.1 RBC (4.70 - 6.10 /CUMM) 3.60 L Hgb (14.0 - 18.0 G/DL) 11.2 L Hct (42 - 52 %) 32.5 L MCV (80.0 - 94.0 FL) 90.4 MCH (27.0 - 31.0 PG) 31.1 H MCHC (33.0 - 37.0 G/DL) 34.4 RDW (11.5 - 14.5 %) 13.8 Plt Count (130 - 400 /CUMM) 122 L MPV (7.4 - 10.4 FL) 11.2 H Gran % (42.2 - 75.2 %) 58.8 Lymphocytes % (20.5 - 51.1 %) 18.3 L Monocytes % (1.7 - 9.3 %) 22.5 H Eosinophils % (0 - 5 %) 0.1 Basophils % (0.0 - 2.0 %) 0.3 Absolute Granulocytes (1.4 - 6.5 /CUMM) 5.4 Segmented Neutrophils (42.2 - 75.2 %) 63 Absolute Lymphocytes (1.2 - 3.4 /CUMM) 1.7 Lymphocytes (20.5 - 51.1 %) 20 L Monocytes (1.7 - 9.3 %) 17 H Absolute Monocytes (0.10 - 0.60 /CUMM) 2.1 H Absolute Eosinophils (0.0 - 0.7 /CUMM) 0 Absolute Basophils (0.0 - 0.2 /CUMM) 0 Platelet Estimate (ADEQUATE) ADEQUATE Polychromasia 1+ Ovalocytes FEW Other Body Source Fld Total RBCs Counted (%) 100 Impression/Plan Impression/Plan Impression/Plan: СЕРГЕЙ, Eomi Chest clear cvs aure, afib abd soft No edema Fracture left Ue Pupils small rt le colder than rt much improved since yesterday Rest less and nonpurposeful movements This is a 67-year-old gentleman with history of hypertension, hyperlipidemia, CABG, previous bovine aortic valve replacement, previous history of Hodgkin's lymphoma in the late with previous chemoradiation therapy leading to significant neuropathy, significant medical marijuana usage, alcohol use on and off, multiple surgeries and chronic pain, previous seizure disorder started in 2014 and since then followed by [facility] seizure clinic (compliant) here with encephelopathy multifactorial (not having any seizures) * Now had runs of VT, with isabella now (pt was on precedex) now held. May need amiodarone (if rate permits) * Sig encephelopathy - Admitted with Witnessed seizure activity and a fall (EEG no further seizures and rapid improvement of seizure on keppra and valproic acid ). Patient does have a large arachnoid cyst in his left temporal area with mass effect to the underlying temporal area (appears stable since 2014), Pt with previous history of sig etoh use, marijuana use and now with urine tox positive for cocaine and seizure from cocaine vs withdrawal and other causes including cocaine induced cryptographic vulnerability analyst injury vs small vessel cerebral ishemia. Pt was responding to precedex, but has mild isabella * Respiratory failure due to seizure activity and encephelopathy, patient has been intubated. May have aspiration pna as well as he was a difficult intubation. Ecoli and Staph in the sputum and responded to abx - now better and can wean but his mental status is preventing the wean. Finished 7 day course of abx * Delirium and encephelopathy (toxic and metabolic) * Ischemic foot rt side due to sfa occlusion (appears chronic by CT) improved clinically since heparin started)- vascular on board. PAfib since admission and anticoag started on 03/01, as the clotting risk out weighs the bleeding risks at this time (anticoag held till then due to sig bleeding risk, ie unstable fracture, altered mental status, recent fall, fracture nasal, recurrent seizures upon admission and hematoma and swelling of the left upper arm from displaced humerus fracture) (cta left ue shows poor flow in the palm) - surg to be held now due to vt etc * Stable Thrombocytopenia - HIT neg now back on heparin * Ileus now with s/p sig bm * Significant alcohol use by history with probable dts, Marijuana, sig cocaine in the urine upon admission * Sig Heart disease with previous CABG and aortic valve replacement with bioprosthetic valve with previous arrythmia, now in pafib * Previous history of nephrolithiasis, now with john (improving) * Now sig delirium on and off off ativan and narcotics on precedex * Nasal fracture and displaced transcondylar fracture of distal left humerus, conservative rx per ortho * 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
[2018-03-07 10:05] LABS: PTT 37 SEC (25-37)
--- NOTE | 2018-03-07 11:52 | PN- Cardiology ---
Subjective Subjective: Patient remains intubated. Was planned for lower extremity angiogram but postponed due to recurrent runs of nonsustained ventricular tachycardia. Objective Vital Signs and I&Os Vital Signs Date Time Temp Pulse Resp B/P B/P Pulse O2 O2 Flow FiO2 Mean Ox Delivery Rate 03/07 0909 66 133/94 03/07 0819 30 03/07 0800 96 Ventilator 30% 03/07 0800 97.3 62 20 130/90 96 Ventilator 30% 03/07 0612 30 03/07 0400 95 Ventilator 30% 03/07 0303 30 03/07 0115 30 03/07 0000 98.1 80 24 160/98 98 Ventilator 30% 03/07 0000 98 Ventilator 30% 03/06 2209 30 03/06 2025 75 144/95 03/06 2000 96 Ventilator 30% 03/06 1900 30 03/06 1623 30 03/06 1600 95 Ventilator 30% 03/06 1600 97.7 66 20 148/76 95 Ventilator 30% 03/06 1435 30 03/06 1200 98.0 91 24 134/88 96 Ventilator 30% 03/06 1200 98 Ventilator 30% Intake & Output 03/07 1600 03/07 0800 03/07 0000 03/06 1600 03/06 0800 03/06 0000 Intake Total 1098 1034 1242 1392 1525.8 Output Total 800 550 400 400 340 Balance 298 484 644 288 7323.8 Intake, IV 900 942 822 7209 1064.8 Intake, Oral 0 0 0 Intake, Other 205 Intake, Tube 73 262 173 28 111 Feeding Intake, Tube 125 150 475 125 350 Irrigant Number 0 0 0 0 Bowel Movements Output, Urine 800 550 400 400 340 Patient 224 lb 227 lb 227 lb Weight Weight Bed scale Bed scale Bed scale Measurement Method Physical Exam: General: Intubated Eyes: No obvious scleral icterus. HEENT: No jugular venous distention or abnormal jugular venous pulsations. Cardiovascular: Normal intensity S1/S2. Regular Respiratory: No rales or rhonchi Abdomen: no guarding Musculoskeletal: No clubbing; decreased lower extremity pulses; trace lower extremity edema Skin: No cyanosis Neurologic: Sedated Current Medications: Current Medications Sig/Louise Start time Last Medication Dose Route Stop Time Status Admin Amiodarone HCl/ 360 MG Q12H 03/07 0830 AC 03/07 Dextrose IV 0909 N/A 1 UNIT Atorvastatin Calcium 40 MG 1700 03/01 1700 AC 03/06 PO 1719 Dexmedetomidine HCl 400 MCG Q3H 03/07 0830 DC 03/07 Sodium Chloride 96 ML IV 0811 Dexmedetomidine HCl 400 MCG Q5H 03/05 1630 DC 03/07 Sodium Chloride 96 ML IV 03/07 0829 0023 Dextrose/Sodium 1,000 ML Q13H 03/04 1415 AC 03/07 Chloride IV 0024 Docusate Sodium 100 MG DAILY NEEDED 03/02 0930 AC 03/02 PO 1057 Famotidine 20 MG BID 03/06 2100 AC 03/06 PO 2024 Heparin Sodium 7,620 UNIT ONCE ONE 03/07 1000 DC 03/07 (Porcine) IV 03/07 1001 1033 Heparin Sodium 4,132 UNIT ONCE ONE 03/06 1445 DC 03/06 (Porcine) IV 03/06 1446 1459 Heparin Sodium 25,000 UNIT Q24H 03/05 1615 AC 03/07 (Porcine) IV 0812 Sodium Chloride 500 ML Levetiracetam 1,000 MG Q8 03/06 1400 AC 03/07 G TUBE 0548 Lorazepam 2 MG ONE ONE 03/07 0830 DC 03/07 IV 03/07 0831 0909 Lorazepam 2 MG ONE ONE 03/07 0345 DC 03/07 IV 03/07 0346 0349 Metoprolol Tartrate 12.5 MG BID 03/06 2100 AC 03/06 PO 202 Polyethylene Glycol 17 GM DAILY PRN 03/02 0930 AC 03/03 PO 0839 Potassium Chloride 20 MEQ ONCE ONE 03/07 0715 DC 03/07 PO 03/07 0716 0909 Senna 187 MG AT BEDTIME PRN 03/02 0930 AC 03/02 PO 1057 Valproic Acid 1,000 MG BID 03/06 0936 AC 03/06 PO 2025 Results Last 48 Hrs of Labs/Mics: Laboratory Tests 03/07/18 0850: APTT 37 03/07/18 0425: Anion Gap 11, Estimated GFR > 60, Glucose 112 H, Calcium 7.6 L, Phosphorus 3.2 , Magnesium 2.0, Total Bilirubin 0.6, AST 30, ALT 28, Albumin 2.3 L, APTT Cancelled, CBC w Diff NO MAN DIFF REQ, RBC 3.46 L, MCV 90.2, MCH 31.4 H, MCHC 34.8, RDW 13.8, MPV 10.8 H, Gran % 56.8, Lymphocytes % 18.7 L, Monocytes % 24.1 H, Eosinophils % 0.2, Basophils % 0.2, Absolute Granulocytes 4.7, Absolute Lymphocytes 1.5, Absolute Monocytes 2.0 H, Absolute Eosinophils 0, Absolute Basophils 0 03/06/18 2055: APTT 66 H 03/06/18 1225: APTT 47 H 03/06/18 0500: APTT Cancelled 03/06/18 0400: Anion Gap 10, Estimated GFR > 60, Glucose 122 H, Calcium 7.7 L, Phosphorus 3.3 , Magnesium 2.0, Total Bilirubin 0.7, AST 26, ALT 25, Albumin 2.4 L, CBC w Diff MAN DIFF ORDERED, RBC 3.60 L, MCV 90.4, MCH 31.1 H, MCHC 34.4, RDW 13.8, MPV 11.2 H, Gran % 58.8, Lymphocytes % 18.3 L, Monocytes % 22.5 H, Eosinophils % 0.1, Basophils % 0.3, Absolute Granulocytes 5.4, Segmented Neutrophils 63, Absolute Lymphocytes 1.7, Lymphocytes 20 L, Monocytes 17 H, Absolute Monocytes 2.1 H, Absolute Eosinophils 0, Absolute Basophils 0, Platelet Estimate ADEQUATE , Polychromasia 1+, Ovalocytes FEW, Fld Total RBCs Counted 100 03/06/18 0025: APTT 74 H Recent Imaging Studies: Telemetry tracings were personally reviewed and showed atrial fibrillation with runs of nonsustained ventricular tachycardia CXR: 1. Endotracheal tube tip is 8 cm above the seven. 2. Right jugular central venous line tip is at the right brachiocephalic and SVC junction. 3. No change in bibasilar opacities, likely representing atelectatic changes. Assessment/Plan Assessment/Plan 1. Seizure disorder 2. Atrial fibrillation, was not on chronic AC due to seizure disorder with refractory polysubstance abuse 3. Coronary artery disease status post CABG 4. Bioprosthetic aortic valve 5. Nonsustained wide complex tachycardia 6. Peripheral vascular disease 7. 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 polysubstance abuse, including cocaine 9. Hypertension 10. Hyperlipidemia 11. ?thrombocytopenia; improved The patient was noted to have recurrent runs of nonsustained ventricular tachycardia; we have initiated low-dose amiodarone infusion; continue on the metoprolol and if heart rate tolerates will likely plan to increase the dose. Remains on intravenous heparin. Recommend daily aspirin now that thrombocytopenia has resolved. Juan Magallon MD LOCATED [facility]IN [facility] Continue telemetry? Yes
[2018-03-07 12:00] VITALS: BP 104/80
[2018-03-07 15:26] LABS: PTT > 120 SEC (25-37)
[2018-03-07 16:00] VITALS: BP 108/80
[2018-03-07 22:12] LABS: PTT 68 SEC (25-37)
[2018-03-08] VITALS: BP 134/90
[2018-03-08 06:09] LABS: ABSOLUTE BASOPHIL COUNT 0 /CUMM (0.0-0.2); ABSOLUTE EOSINOPHIL COUNT 0 /CUMM (0.0-0.7); ABSOLUTE GRANULOCYTE CT 4.6 /CUMM (1.4-6.5); ABSOLUTE LYMPH COUNT 1.6 /CUMM (1.2-3.4); BASOPHIL % 0.2 % (0.0-2.0); EOSINOPHIL % 0.1 % (0-5); GRANULOCYTE % 50.3 % (42.2-75.2); HEMATOCRIT 32.7 % (42-52); MEAN CORPUSCULAR HGB 30.9 PG (27.0-31.0); MEAN CORPUSCULAR HGB CONC 34.4 G/DL (33.0-37.0); MEAN PLATELET VOLUME 12.4 FL (7.4-10.4); PLATELET COUNT 153 /CUMM (130-400); RED BLOOD CELL CT 3.63 /CUMM (4.70-6.10); WHITE BLOOD CELL COUNT 9.2 /CUMM (4.8-10.8)
[2018-03-08 08:00] VITALS: BP 116/80
--- NOTE | 2018-03-08 09:14 | PN- Resident CRCU ---
Subjective HPI/CRCU Issues: #Chronic Seizure Disorder, s/p status epilepticus, on keppra and valproate #R SFA Occlusion #Afib, episodes of NSVT #Acute Resp Distress s/p extubation (03/08) #L nondisplaced transcondylear fracture, splinted #Nasal Bone and Septum Fracture #Factitious thrombocytopenia, #PEPPER, resolved 24 Hour Events: Pt seen and examined this am. He was restless during the night, 2 mg ativan given overnight. B/L LE appear cold. Pulses present only on doppler. Pt was extubated today, pulled his R IJ TLC out, peripheral access was obtained. was informed of recent events. No episodes of NSVT overnight. Objective Vital Signs & I&O Last 8 Hrs of Vitals and I&O: Laboratory Tests 03/08/18 0950: APTT 48 H 03/08/18 0415: Anion Gap 10, Estimated GFR > 60, Glucose 90, Calcium 7.9 L, Phosphorus 3.1, Magnesium 2.0, Total Bilirubin 0.6, AST 36, ALT 32, Albumin 2.4 L, CBC w Diff MAN DIFF ORDERED, RBC 3.63 L, MCV 90.0, MCH 30.9, MCHC 34.4, RDW 14.0, MPV 12.4 H, Gran % 50.3, Lymphocytes % 17.2 L, Monocytes % 32.2 H, Eosinophils % 0.1, Basophils % 0.2, Absolute Granulocytes 4.6, Segmented Neutrophils 60, Absolute Lymphocytes 1.6, Lymphocytes 18 L, Monocytes 22 H, Absolute Monocytes 3.0 H, Absolute Eosinophils 0, Absolute Basophils 0, Platelet Estimate ADEQUATE, Polychromasia 1+, Poikilocytosis 1+, Ovalocytes 1+, Fld Total RBCs Counted 100 03/07/18 2126: APTT 68 H 03/07/18 1426: APTT > 120 *H Vital Signs Date Time Temp Pulse Resp B/P B/P Pulse O2 O2 Flow FiO2 Mean Ox Delivery Rate 03/08 0911 30 03/08 0800 97 Ventilator 30% 03/08 0800 98.3 86 20 116/80 97 Ventilator 30% 03/08 0759 104 113/78 03/08 0543 30 03/08 0400 95 Ventilator 30% 03/08 0201 30 03/08 0000 97.2 81 20 134/90 100 Ventilator 30% 03/08 0000 100 Ventilator 30% 03/07 2208 30 03/07 2115 74 115/77 03/07 2113 76 115/77 03/07 2000 96 Ventilator 30% 03/07 1932 30 03/07 1631 30 03/07 1600 98 Ventilator 30% 03/07 1600 97.1 71 20 108/80 98 Ventilator 30% 03/07 1430 30 03/07 1200 96 Ventilator 30% 03/07 1200 96.8 70 22 104/80 96 Ventilator 30% 03/07 1153 68 102/76 03/07 1135 30 Intake & Output 03/08 1600 03/08 0800 03/08 0000 Intake Total 1160 1300.6 Output Total 304 250 Balance 856 1050.6 Intake, IV 370 404.6 Intake, Tube 540 421 Feeding Intake, Tube 250 475 Irrigant Number 1 Bowel Movements Output, Urine 304 250 Exam General Appearance: awake, anxious, moderate distress, restless Head: evidence of injury, ecchymosis Neck: normal inspection, supple Respiratory: normal breath sounds, lungs clear Cardiovascular: irregularly irregular Gastrointestinal: normal bowel sounds, soft, no organomegaly Extremities: Decreased warmth in LE B/L. Pulses present with doppler only. Current Medications: Current Medications Sig/Louise Start time Last Medication Dose Route Stop Time Status Admin Amiodarone HCl/ 360 MG Q12H 03/07 0830 AC 03/08 Dextrose IV 0759 N/A 1 UNIT Aspirin 81 MG DAILY 03/08 0900 AC PO Atorvastatin Calcium 40 MG 1700 03/01 1700 AC 03/07 PO 1800 Dexmedetomidine HCl 400 MCG Q10H 03/08 0915 DC Sodium Chloride 96 ML IV Dextrose 25 GM .STK-MED ONE 03/08 0013 DC IV 03/08 0014 Dextrose 25 GM ONCE ONE 03/07 2345 DC 03/08 IV 03/07 2346 0024 Dextrose/Sodium 1,000 ML Q13H 03/04 1415 DC 03/07 Chloride IV 0024 Docusate Sodium 100 MG DAILY NEEDED 03/02 930 AC 03/02 PO 1057 Famotidine 20 MG BID 03/06 2100 DC 03/07 PO 2113 Heparin Sodium 25,000 UNIT Q24H 03/05 1615 AC 03/08 (Porcine) IV 0130 Sodium Chloride 500 ML Hydromorphone HCl 1 MG ONCE ONE 03/08 0800 DC 03/08 IV 03/08 0801 0807 Hydromorphone HCl 2 MG ONCE PRN 03/08 0300 AC 03/08 IV 0309 Hydromorphone HCl 2 MG ONCE ONE 03/07 2145 DC 03/07 IV 03/07 214 2148 Hydromorphone HCl 1 MG ONCE ONE 03/07 1800 DC 03/07 IV 03/07 1801 1800 Hydromorphone HCl 1 MG ONCE ONE 03/07 1445 DC 03/07 IV 03/07 1446 1435 Hydromorphone HCl 1 MG ONCE ONE 03/07 1300 DC 03/07 IV 03/07 1301 1301 Levetiracetam 1,000 MG Q8 03/08 1400 AC N/A 1 UNIT IV Levetiracetam 1,000 MG Q8 03/06 1400 DC 03/08 G TUBE 0601 Lorazepam 2 MG Q4 PRN 03/08 0200 AC 03/08 IV 07 Lorazepam 2 MG ONE ONE 03/08 0015 DC 03/08 IV 03/08 0016 0024 Lorazepam 2 MG ONCE ONE 03/07 2015 DC 03/07 IV 03/07 Lorazepam 2 MG ONE ONE 03/07 1600 DC 03/07 IV 03/07 1601 1551 Metoprolol Tartrate 5 MG Q6 03/08 1200 AC IV Metoprolol Tartrate 12.5 MG BID 03/06 2100 DC 03/07 PO 211 Pantoprazole Sodium 40 MG DAILY 03/08 1045 AC IV Polyethylene Glycol 17 GM DAILY PRN 03/02 0930 AC 03/03 PO 0839 Potassium Chloride 20 MEQ BID 03/08 0900 AC PO Senna 187 MG AT BEDTIME PRN 03/02 0930 AC 03/02 PO 1057 Valproate Sodium 1,000 MG Q12H 03/08 1200 AC Sodium Chloride 100 ML IV Valproate Sodium 1,000 MG Q12 03/08 1044 CAN IV Valproic Acid 1,000 MG BID 03/06 0936 DC 03/07 PO 2112 Impression/Plan Impression/Problem List Impression: 67 y/o M with PMH of chronic seizure disorder on valproate, CAD s/p CABG and bovine aortic valve replacement in 2013, Hodgkins lymphoma, HTN and HLD that was brought to the ED after he was /found to be unresponsiveness. The patient was at his baseline on 02/25. On the ED the patient's respiratory drive was poor and he was intubated. The EKG on the ED showed transient A-fib that converted to SR and reconverted to Afib. He was admitted to the ICU for management of his acute seizure episode requiring intubation, now s/p extubation. Of note on 02/22, patient had a work related accident where he fell and landed on his face - CXR shows nasal bones and septum fracture. He also presented with a L nondisplaced supracondylear fracture. IMPRESSIONS #Chronic Seizure Disorder, p/b status epilepticus, on keppra and valproate #R SFA Occlusion #Afib/ episodes of NSVT #L nondisplaced transcondylear fracture, splinted #Nasal Bone and Septum Fracture #Acute Resp Distress s/p extubation 03/08 #Factitious thrombocytopenia #PEPPER, resolved #Chronic Seizure Disorder, p/b status epilepticus Pt has a long standing history of seizure disorder, compliant on his valproic acid as evidenced by records and laboratory studies (Urine Valproate in therapeutic range). Urine toxicology showed evidence of cocaine use, could have played a part into this latest seizure episode. Head CT (02/26) shows a chronic arachnoid cyst on the left anterior middle cranial fossa with some slight interval increase in size. He does have a history of ETOH use and while his serum alcohol was not impressive, a withdrawal induced seizure could still have been the culprit. Neurology was consulted and EEG showed no seizure activity, a follow up EEG showed diffuse cerebral dysfx like the first one. He is now extubated, though still remains restless. -Pt on keppra and valproate IV #R SFA Occlusion Pt has been on a-fib since admission to the ICU - he was off systemic anticoagulation due to his multiple fractures in the nasal area and L nondisplaced transcondylear fracture. An arterial doppler U/S showed a R SFA occlusion. He has now been starting on heparin drip as benefits>risks. Vascular surgery was consulted and a CTA done on 03/01 that showed segmental occlusions of the distal right SFA. Latest doppler 03/04 showed interval worsening - vascular plan for R leg angiogram p/b embolectomy. Due to episodes of nonsustained monomorphic Vtach, surgery was cancelled pending cardiology's clearance. -R leg angiogram -f/u vasc surgery recommendation #Acute Resp Distress, s/p extubation On arrival, pt had poor inspiratory effort and there was concern for worsening status, so he was intubated. Aspiration PNA was likely, with a positive resp culture that grew pansensitive E. coli and Staph, so he was put on Unasyn for 7 days, now completed. Off abx - he remains afebrile with a normal WBC. He was extubated on 03/08. -Off abx -IV Unasyn dc'd (DAY #7- Complete) #Factitious thrombocytopenia, resolved Pt's low PLT were due to clumping. PF4/ANEESH ordered and sent out, he was started on agatroban drip; they came back negative. Latest PLT count was 153. He is off argatroban and back on heparin. -Off argatroban, on heparin gtt -HIT work up negative #Afib / Episodes of NSVT Pt currently on afib. Extensive cardiac history of CAD s/p CABG, bioprosthetic valve replacement, HTN/HLD with a positive urine tox for cocaine. Echo (02/27) shows an aortic bioprostethic valve with no significant insufficiency though it was not visualized optimally. LVEF is 60%. Cardiology is following. Had a nonsustained wide complex tachycardia during the night 03/02. 11-beat run of vtach noted on 03/03, and a 21 beat run on 03/07, STAT ekg/trop negative for ischemic changes. He was started on an amiodarone drip as a result of his latest episode. -Metoprolol 5mg Iv q6 -Amiodarone drip #L nondisplaced transcondylear fracture, splinted On arrival, a L nondisplaced transcondylear fracture was noted. Pt is currently splinted. Orthopedics were consulted, and as per their recommendation, due to the patient's current status, a nonoperative management is recommended, though can be reconsidered on improvement of his status. Ice packs can be applied around the elbow. As per vascular surgery's recommendation, a CTA of L arm was ordered, showing possible occlusions within the deep and superficial arches of the hand. -Splint to remain -Ice packs around the elbow if needed #PEPPER, resolved Pt with BUN/Cr of 35/1.6 on admit, 19/1.1 now. -Started on D5 08/15 NS@75cc/h DNR/DNI DVT PPX: MECH, PHARM NPO Problem List: 1. Alcohol dependence with withdrawal 2. Seizure Pain Ratin Tomorrow's Labs & Rationales: cbc, icu lab bundle Plan DVT/Prophylaxis: mechanical, pharmacological
--- NOTE | 2018-03-08 09:47 | RADIOLOGY REPORT ---
EXAMINATION: XR PORTABLE CHEST CLINICAL INFORMATION: 67-year-old male status post intubation. OG tube placement. COMPARISON: Chest done on 03/07/2018. TECHNIQUE: Portable upright frontal view of the chest was obtained. FINDINGS: The tip of the endotracheal tube is seen approximately 8.8 cm above the level of the seven. There is a right IJ central line visualized, projecting at the level of the right lung apex. The OG tube is not well visualized due to underexposure, position is not clearly defined. Both lung mccallum are symmetrically expanded and shows improved aeration at both lung bases since the prior study. The cardiomediastinal silhouette is within normal limits. There is no pleural effusion or pneumothorax present. IMPRESSION: The OG tube is not well visualized due to underexposure, and its position is not determined. The tip of the endotracheal tube is located approximately 8.8 cm above the level of the seven. The right IJ central line is seen projecting at the level of the right lung apex.
--- NOTE | 2018-03-08 10:21 | PN- Cardiology ---
Subjective Subjective: Patient remains intubated but plans for extubation yesterday. Sinus rhythm no evidence of ventricular tachycardia. Patient on IV amiodarone and IV heparin. Objective Vital Signs and I&Os Vital Signs Date Time Temp Pulse Resp B/P B/P Pulse O2 O2 Flow FiO2 Mean Ox Delivery Rate 03/08 0911 30 03/08 0800 97 Ventilator 30% 03/08 0800 98.3 86 20 116/80 97 Ventilator 30% 03/08 0759 104 113/78 03/08 0543 30 03/08 0400 95 Ventilator 30% 03/08 0201 30 03/08 0000 97.2 81 20 134/90 100 Ventilator 30% 03/08 0000 100 Ventilator 30% 03/07 2208 30 03/07 2115 74 115/77 03/07 2113 76 115/77 03/07 2000 96 Ventilator 30% 03/07 1932 30 03/07 1631 30 03/07 1600 98 Ventilator 30% 03/07 1600 97.1 71 20 108/80 98 Ventilator 30% 03/07 1430 30 03/07 1200 96 Ventilator 30% 03/07 1200 96.8 70 22 104/80 96 Ventilator 30% 03/07 1153 68 102/76 03/07 1135 30 Intake & Output 03/08 1600 03/08 0800 03/08 0000 03/07 1600 03/07 0800 03/07 0000 Intake Total 1160 1300.6 1151 1098 1034 Output Total 304 250 400 800 550 Balance 856 1050.6 751 298 484 Intake, IV 370 404.6 616 900 417 Intake, Oral 0 0 Intake, Other 205 Intake, Tube 540 421 130 73 262 Feeding Intake, Tube 250 475 405 125 150 Irrigant Number 1 1 0 0 Bowel Movements Output, Urine 304 250 400 800 550 Patient 224 lb Weight Weight Bed scale Measurement Method Physical Exam: On physical exam patient is intubated Head normocephalic atraumatic Eyes sclera anicteric conjunctiva showed no pallor extraocular muscles were normal Neck no jugular venous tension no thyroid masses Chest lungs were clear bilaterally Heart regular rhythm with a 1/6 systolic murmur Abdomen soft Extremities no edema. Current Medications: Current Medications Sig/Louise Start time Last Medication Dose Route Stop Time Status Admin Amiodarone HCl/ 360 MG Q12H 03/07 0830 AC 03/08 Dextrose IV 0759 N/A 1 UNIT Aspirin 81 MG DAILY 03/08 0900 AC PO Atorvastatin Calcium 40 MG 1700 03/01 1700 AC 03/07 PO 1800 Dexmedetomidine HCl 400 MCG Q10H 03/08 0915 AC Sodium Chloride 96 ML IV Dextrose 25 GM .STK-MED ONE 03/08 0013 DC IV 03/08 0014 Dextrose 25 GM ONCE ONE 03/07 2345 DC 03/08 IV 03/07 2346 0024 Dextrose/Sodium 1,000 ML Q13H 03/04 1415 DC 03/07 Chloride IV 0024 Docusate Sodium 100 MG DAILY NEEDED 03/02 0930 AC 03/02 PO 1057 Famotidine 20 MG BID 03/06 2100 AC 03/07 PO 211 Heparin Sodium 10,000 UNIT .STK-MED ONE 03/07 1021 DC (Porcine) IV 03/07 1022 Heparin Sodium 25,000 UNIT Q24H 03/05 1615 03/08 (Porcine) IV 0130 Sodium Chloride 500 ML Hydromorphone HCl 1 MG ONCE ONE 03/08 0800 MN 03/08 IV 03/08 0801 0807 Hydromorphone HCl 2 MG ONCE PRN 03/08 0300 03/08 IV 0309 Hydromorphone HCl 2 MG ONCE ONE 03/07 2145 DC 03/07 IV 03/07 2146 2148 Hydromorphone HCl 1 MG ONCE ONE 03/07 1800 DC 03/07 IV 03/07 1801 1800 Hydromorphone HCl 1 MG ONCE ONE 03/07 1445 MN 03/07 IV 03/07 1446 1435 Hydromorphone HCl 1 MG ONCE ONE 03/07 1300 MN 03/07 IV 03/07 1301 1301 Levetiracetam 1,000 MG Q8 03/06 1400 AC 03/08 G TUBE 0601 Lorazepam 2 MG Q4 PRN 03/08 0200 03/08 IV 07 Lorazepam 2 MG ONE ONE 03/08 0015 MN 03/08 IV 03/08 0016 0024 Lorazepam 2 MG ONCE ONE 03/07 2015 DC 03/07 IV 03/07 Lorazepam 2 MG ONE ONE 03/07 1600 DC 03/07 IV 03/07 1601 1551 Metoprolol Tartrate 12.5 MG BID 03/06 2100 03/07 PO 211 Polyethylene Glycol 17 GM DAILY PRN 03/02 930 AC 03/03 PO 0839 Potassium Chloride 20 MEQ BID 03/08 09 AC PO Senna 187 MG AT BEDTIME PRN 03/02 930 AC 03/02 PO 1057 Valproic Acid 1,000 MG BID 03/06 936 AC 03/07 PO 2113 Results Last 48 Hrs of Labs/Mics: Laboratory Tests 03/08/18 0950: APTT Pending 03/08/18 0415: Anion Gap 10, Estimated GFR > 60, Glucose 90, Calcium 7.9 L, Phosphorus 3.1, Magnesium 2.0, Total Bilirubin 0.6, AST 36, ALT 32, Albumin 2.4 L, CBC w Diff MAN DIFF ORDERED, RBC 3.63 L, MCV 90.0, MCH 30.9, MCHC 34.4, RDW 14.0, MPV 12.4 H, Gran % 50.3, Lymphocytes % 17.2 L, Monocytes % 32.2 H, Eosinophils % 0.1, Basophils % 0.2, Absolute Granulocytes 4.6, Segmented Neutrophils 60, Absolute Lymphocytes 1.6, Lymphocytes 18 L, Monocytes 22 H, Absolute Monocytes 3.0 H, Absolute Eosinophils 0, Absolute Basophils 0, Platelet Estimate ADEQUATE, Polychromasia 1+, Poikilocytosis 1+, Ovalocytes 1+, Fld Total RBCs Counted 100 03/07/18 2126: APTT 68 H 03/07/18 1426: APTT > 120 *H 03/07/18 0850: APTT 37 03/07/18 0425: Anion Gap 11, Estimated GFR > 60, Glucose 112 H, Calcium 7.6 L, Phosphorus 3.2 , Magnesium 2.0, Total Bilirubin 0.6, AST 30, ALT 28, Albumin 2.3 L, APTT Cancelled, CBC w Diff NO MAN DIFF REQ, RBC 3.46 L, MCV 90.2, MCH 31.4 H, MCHC 34.8, RDW 13.8, MPV 10.8 H, Gran % 56.8, Lymphocytes % 18.7 L, Monocytes % 24.1 H, Eosinophils % 0.2, Basophils % 0.2, Absolute Granulocytes 4.7, Absolute Lymphocytes 1.5, Absolute Monocytes 2.0 H, Absolute Eosinophils 0, Absolute Basophils 0 03/06/18 2055: APTT 66 H 07/24/18 1225: APTT 47 H Assessment/Plan Assessment/Plan In summary this 67-year-old gentleman has a following problems 1. Seizure disorder 2. Atrial fibrillation, was not on chronic AC due to seizure disorder with refractory polysubstance abuse 3. Coronary artery disease status post CABG 4. Bioprosthetic aortic valve 5. Nonsustained wide complex tachycardia 6. Peripheral vascular disease 7. 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 polysubstance abuse, including cocaine 9. Hypertension 10. Hyperlipidemia 11. ?thrombocytopenia; improved He could be extubated today. He appears to be on IV amiodarone for nonsustained ventricular tachycardia. Suspect ventricular arrhythmia might be more related to excess catecholamine. Left ventricular function was normal. He is also on IV heparin for paroxysmal atrial fibrillation. I would suggest increasing metoprolol to 50 mg twice daily and if necessary further increase in heart rate and blood pressure permits and stopping IV amiodarone after 24-48 hours. Hopefully decreasing his adrenergic drive decreases arrhythmia as well. Continue telemetry? Yes
[2018-03-08 10:44] LABS: PTT 48 SEC (25-37)
--- NOTE | 2018-03-08 13:53 | PN- CRCU ---
Subjective HPI/Critical Care Issues: Patient was little more awake today Despite multiple attempts using multiple medications he does continue to have on and off worsening mental status and delirium. As he is not immediately going to the operating room and his prior wishes were not to be on mechanical ventilator per too long, I did discuss this with the patient's . She wishes the patient not to remain intubated. As there is no evident window to attempt extubation despite his encephalopathy she is willing to take that risk. She wishes to be made DNR/DNI. But she wishes to continue all other conservative therapy. Due to this we did extubate the patient now on BiPAP. He continues to be restless but solely seems to be improving He is awake and he does squeeze my hand Continues to be in sinus rhythm, on amiodarone drip. Not bradycardic anymore. Continues to be on IV heparin. However he did lose his access today. Objective Current Medications: Current Medications Sig/Louise Start time Last Medication Dose Route Stop Time Status Admin Amiodarone HCl/ 360 MG Q12H 03/07 0830 AC 03/08 Dextrose IV 0759 N/A 1 UNIT Aspirin 81 MG DAILY 03/08 0900 DC PO Atorvastatin Calcium 40 MG 1700 03/01 1700 AC 03/07 PO 1800 Dexmedetomidine HCl 400 MCG Q10H 03/08 0915 DC Sodium Chloride 96 ML IV Dextrose 25 GM .STK-MED ONE 03/08 0013 DC IV 03/08 0014 Dextrose 25 GM ONCE ONE 03/07 2345 DC 03/08 IV 03/07 2346 0024 Dextrose/Sodium 1,000 ML Q13H 03/08 1145 DC Chloride IV Dextrose/Sodium 1,000 ML Q13H 03/04 1415 DC 03/07 Chloride IV 0024 Docusate Sodium 100 MG DAILY NEEDED 03/02 0930 AC 03/02 PO 1057 Famotidine 20 MG BID 03/06 2100 DC 03/07 PO 2113 Heparin Sodium 5,000 UNIT ONCE ONE 03/08 1200 DC 03/08 (Porcine) IV 03/08 1201 1207 Heparin Sodium 25,000 UNIT Q24H 03/05 1615 AC 03/08 (Porcine) IV 0130 Sodium Chloride 500 ML Hydromorphone HCl 1 MG ONCE ONE 03/08 0800 DC 03/08 IV 03/08 0801 0807 Hydromorphone HCl 2 MG ONCE PRN 03/08 0300 AC 03/08 IV 0309 Hydromorphone HCl 2 MG ONCE ONE 03/07 2145 DC 03/07 IV 03/07 2146 2148 Hydromorphone HCl 1 MG ONCE ONE 03/07 1800 DC 03/07 IV 03/07 1801 1800 Hydromorphone HCl 1 MG ONCE ONE 03/07 1445 DC 03/07 IV 03/07 1446 1435 Levetiracetam 1,000 MG Q8 03/08 1400 AC 03/08 N/A 1 UNIT IV 1342 Levetiracetam 1,000 MG Q8 03/06 1400 DC 03/08 G TUBE 0601 Lorazepam 2 MG Q4 PRN 03/08 0200 03/08 IV 07 Lorazepam 2 MG ONE ONE 03/08 0015 DC 03/08 IV 03/08 0016 0024 Lorazepam 2 MG ONCE ONE 03/07 2015 DC 03/07 IV 03/07 Lorazepam 2 MG ONE ONE 03/07 1600 DC 03/07 IV 03/07 1601 1551 Metoprolol Tartrate 5 MG Q6 03/08 1200 AC 03/08 IV 1155 Metoprolol Tartrate 12.5 MG BID 03/06 2100 UT 03/07 PO 211 Naloxone HCl 0.4 MG ONCE ONE 03/08 1200 DC 03/08 IV 03/08 1201 1206 Pantoprazole Sodium 40 MG DAILY 03/08 1045 AC 03/08 IV 1155 Polyethylene Glycol 17 GM DAILY PRN 03/02 0930 03/03 PO 0839 Potassium Chloride 40 MEQ ONCE ONE 03/08 1215 AC 03/08 Dextrose/Sodium 1,000 ML IV 03/09 0134 1342 Chloride Potassium Chloride 40 MEQ 75 MLS/HR 03/08 1200 DC IV 03/09 1201 Potassium Chloride 20 MEQ BID 03/08 0900 DC PO Senna 187 MG AT BEDTIME PRN 03/02 0930 AC 03/02 PO 1057 Valproate Sodium 1,000 MG Q12H 03/08 1200 AC 03/08 Sodium Chloride 100 ML IV 1155 Valproate Sodium 1,000 MG Q12 03/08 1044 CAN IV Valproic Acid 1,000 MG BID 03/06 0936 DC 03/07 PO 2113 Vital Signs & I&O Last 24 Hrs of Vitals and I&O: Vital Signs Date Time Temp Pulse Resp B/P B/P Pulse O2 O2 Flow FiO2 Mean Ox Delivery Rate 03/08 1253 99 97 03/08 1155 112 165/112 03/08 0911 30 03/08 0800 97 Ventilator 30% 03/08 0800 98.3 86 20 116/80 97 Ventilator 30% 03/08 0759 104 113/78 03/08 0543 30 03/08 0400 95 Ventilator 30% 03/08 0201 30 03/08 0000 97.2 81 20 134/90 100 Ventilator 30% 03/08 0000 100 Ventilator 30% 03/07 2208 30 03/07 2115 74 115/77 03/07 2113 76 115/77 03/07 2000 96 Ventilator 30% 03/07 1932 30 03/07 1631 30 03/07 1600 98 Ventilator 30% 03/07 1600 97.1 71 20 108/80 98 Ventilator 30% 03/07 1430 30 Intake & Output 03/08 1600 03/08 0800 03/08 0000 Intake Total 1160 1300.6 Output Total 304 250 Balance 856 1050.6 Intake, IV 370 404.6 Intake, Tube 540 421 Feeding Intake, Tube 250 475 Irrigant Number 1 Bowel Movements Output, Urine 304 250 Impression/Plan Impression/Plan Impression/Plan: СЕРГЕЙ, now extubated, on BiPAP, restless, on 4 point restraint. Eomi Chest clear cvs aure, afib abd soft No edema Fracture left Ue Pupils small Does open his eyes on command does squeeze my hand. Does complain of pain. This is a 67-year-old gentleman with history of hypertension, hyperlipidemia, CABG, previous bovine aortic valve replacement, previous history of Hodgkin's lymphoma in the late with previous chemoradiation therapy leading to significant neuropathy, significant medical marijuana usage, alcohol use on and off, multiple surgeries and chronic pain, previous seizure disorder started in 2015 and since then followed by [facility] seizure clinic (compliant) here with encephelopathy multifactorial (not having any seizures) * Sig encephelopathy - Admitted with Witnessed seizure activity and a fall (EEG no further seizures and rapid improvement of seizure on keppra and valproic acid ). Patient does have a large arachnoid cyst in his left temporal area with mass effect to the underlying temporal area (appears stable since 2015), Pt with previous history of sig etoh use, marijuana use and now with urine tox positive for cocaine and seizure from cocaine vs withdrawal and other causes including cocaine induced shingle sawyer injury vs small vessel cerebral ishemia. Continues to be agitated but slightly better * Respiratory failure due to seizure activity and encephelopathy, patient has been intubated. May have aspiration pna as well as he was a difficult intubation. Ecoli and Staph in the sputum and responded to abx - now better and can wean but his mental status is preventing the wean. Finished 7 day course of abx. Due to the fact that his mental status is slightly better and he continues to be on the respirator a trial of extubation was done today. Patient wishes no reintubation as it was explicit wish of the patient. Patient seemed to have been successfully extubated now on BiPAP maintaining his saturation. However he seems to have difficulty maintaining his oral secretions * Delirium and encephelopathy (toxic and metabolic) * Now had runs of VT, with isabella now (pt was on precedex) now held. 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 PAfib since admission and anticoag started on 03/01, as the clotting risk out weighs the bleeding risks at this time (anticoag held till then due to sig bleeding risk, ie unstable fracture, altered mental status, recent fall, fracture nasal, recurrent seizures upon admission and hematoma and swelling of the left upper arm from displaced humerus fracture) (cta left ue shows poor flow in the palm) - surg to be held now due to vt etc * Stable Thrombocytopenia - HIT neg now back on heparin * Ileus now with s/p sig bm * Significant alcohol use by history with probable dts, Marijuana, sig cocaine in the urine upon admission * Sig Heart disease with previous CABG and aortic valve replacement with bioprosthetic valve with previous arrythmia, now in pafib * Previous history of nephrolithiasis, now with john (improving) * Now sig delirium on and off off ativan and narcotics on precedex * Nasal fracture and displaced transcondylar fracture of distal left humerus, conservative rx per ortho * 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 with no sig spine injury REC Patient is now DNR/DNI Try to use BiPAP and changed to nasal cannula are high flow With delirium persist one dose of 1 mg Haldol Try to avoid narcotics It's sedation is needed low-dose Precedex would be appropriate as it does not reduce respiratory drive Keep the head of bed elevated Convert all his antiseizure medications to intravenous A proton pump inhibitor If IV access is an issue then start him on Lovenox 1 mg per KG body weight every 12 hours and discontinue IV heparin Amiodarone per cardiology Keep his potassium more than 4 magnesium more than 2 Keep him nothing by mouth Aggressive pulmonary toilet Patient is DNR/DNI agrees if he does have significant deterioration she wishes comfort care. As he is improving will continue maximum conservative therapy
[2018-03-08 16:00] VITALS: BP 160/97
[2018-03-08 20:00] LABS: PTT 64 SEC (25-37)
[2018-03-09] VITALS: BP 126/80
[2018-03-09 06:33] LABS: ABSOLUTE EOSINOPHIL COUNT 0 /CUMM (0.0-0.7); ABSOLUTE GRANULOCYTE CT 9.3 /CUMM (1.4-6.5); ABSOLUTE MONOCYTE COUNT 4.1 /CUMM (0.10-0.60); MEAN CORPUSCULAR VOLUME 90.6 FL (80.0-94.0)
[2018-03-09 07:17] LABS: ABSOLUTE BASOPHIL COUNT 0 /CUMM (0.0-0.2); BASOPHIL % 0.2 % (0.0-2.0); EOSINOPHIL % 0.2 % (0-5); GRANULOCYTE % 60.2 % (42.2-75.2); HEMATOCRIT 30.3 % (42-52); MEAN CORPUSCULAR HGB 31.5 PG (27.0-31.0); MEAN CORPUSCULAR HGB CONC 34.8 G/DL (33.0-37.0); MEAN PLATELET VOLUME 12.1 FL (7.4-10.4); PLATELET COUNT 175 /CUMM (130-400); RBC DISTRIBUTION WIDTH 14.3 % (11.5-14.5); RED BLOOD CELL CT 3.34 /CUMM (4.70-6.10)
[2018-03-09 07:31] LABS: WHITE BLOOD CELL COUNT 15.5 /CUMM (4.8-10.8)
[2018-03-09 08:00] VITALS: BP 114/70
--- NOTE | 2018-03-09 08:21 | PN- CRCU ---
Subjective HPI/Critical Care Issues: The patient's respiratory status remains stable post extubation, noting his saturation is 98% on 3 lpm. Precedex was restarted for increased agitation. The patient has copious secretions and requires repeated suctioning. He appears to be more alert this morning but remains delirious and intermittently agitated. Objective Current Medications: Current Medications Sig/Louise Start time Last Medication Dose Route Stop Time Status Admin Acetaminophen 1,000 MG .STK-MED ONE 03/08 2312 DC IV 03/08 2313 Acetaminophen 1,000 MG ONCE ONE 03/08 2215 DC 03/08 N/A 1 UNIT IV 03/08 2229 2210 Amiodarone HCl/ 360 MG Q12H 03/07 0830 AC 03/09 Dextrose IV 0632 N/A 1 UNIT Aspirin 81 MG DAILY 03/08 0900 DC PO Atorvastatin Calcium 40 MG 1700 03/01 1700 AC 03/07 PO 1800 Dexmedetomidine HCl 400 MCG Q10H 03/08 2300 AC 03/09 Sodium Chloride 96 ML IV 0630 Dexmedetomidine HCl 400 MCG Q13H 03/08 1430 DC 03/08 Sodium Chloride 96 ML IV 1456 Dexmedetomidine HCl 400 MCG Q10H 03/08 0915 DC Sodium Chloride 96 ML IV Dextrose/Sodium 1,000 ML Q13H 03/08 1145 DC Chloride IV Docusate Sodium 100 MG DAILY NEEDED 03/02 0930 AC 03/02 PO 1057 Famotidine 20 MG BID 03/06 2100 DC 03/07 PO 2113 Heparin Sodium 5,000 UNIT ONCE ONE 03/08 1200 DC 03/08 (Porcine) IV 03/08 1201 1207 Heparin Sodium 5,000 UNIT .STK-MED ONE 03/08 1152 DC (Porcine) IV 03/08 1153 Heparin Sodium 25,000 UNIT Q24H 03/05 1615 AC 03/08 (Porcine) IV 1933 Sodium Chloride 500 ML Hydromorphone HCl 2 MG ONCE PRN 03/08 0300 AC 03/08 IV 0309 Levetiracetam 1,000 MG Q8 03/08 1400 AC 03/09 N/A 1 UNIT IV 0549 Levetiracetam 1,000 MG Q8 03/06 1400 DC 03/08 G TUBE 0601 Lorazepam 2 MG Q4 PRN 03/08 0200 AC 03/08 IV 0725 Metoprolol Tartrate 5 MG Q6 03/08 1200 AC 03/09 IV 0554 Metoprolol Tartrate 12.5 MG BID 03/06 2100 DC 03/07 PO 2113 Naloxone HCl 0.4 MG .STK-MED ONE 03/08 2312 DC IV 03/08 2313 Naloxone HCl 0.4 MG ONCE ONE 03/08 1200 DC 03/08 IV 03/08 1201 1206 Pantoprazole Sodium 40 MG DAILY 03/08 1045 AC 03/08 IV 1155 Polyethylene Glycol 17 GM DAILY PRN 03/02 0930 AC 03/03 PO 0839 Potassium Chloride 40 MEQ ONCE ONE 03/08 1215 DC 03/08 Dextrose/Sodium 1,000 ML IV 03/09 0134 1342 Chloride Potassium Chloride 40 MEQ 75 MLS/HR 03/08 1200 DC IV 03/09 1201 Potassium Chloride 20 MEQ BID 03/08 0900 DC PO Senna 187 MG AT BEDTIME PRN 03/02 0930 AC 03/02 PO 1057 Valproate Sodium 1,000 MG Q12H 03/08 1200 AC 03/09 Sodium Chloride 100 ML IV 0018 Valproate Sodium 1,000 MG Q12 03/08 1044 CAN IV Valproic Acid 1,000 MG BID 03/06 0936 DC 03/07 PO 2113 Vital Signs & I&O Last 24 Hrs of Vitals and I&O: Vital Signs Date Time Temp Pulse Resp B/P B/P Pulse O2 O2 Flow FiO2 Mean Ox Delivery Rate 03/09 0632 78 28 120/88 03/09 0554 88 30 133/104 03/09 0400 97 Nasal 3.0L Cannula 03/09 0147 83 96 03/09 0018 98.2 80 30 119/71 03/09 0000 97 Nasal 3.0L Cannula 03/09 0000 98.2 80 30 126/80 97 Nasal 3.0L Cannula 03/08 2000 94 Nasal 3.0L Cannula 03/08 1933 86 136/83 03/08 1715 99 180/100 03/08 1610 96 97 03/08 1600 99.0 86 37 160/97 93 BIPAP 40% 03/08 1600 93 BIPAP 40% 03/08 1415 88 97 03/08 1253 99 97 03/08 1200 100 BIPAP 50% 03/08 1155 112 165/112 03/08 0911 30 Intake & Output 03/09 1600 03/09 0800 03/09 0000 Intake Total 1158 1175 Output Total 490 550 Balance 668 625 Intake, IV 1158 1175 Number 0 Bowel Movements Output, Urine 490 550 Patient 224 lb Weight Weight Bed scale Measurement Method Exam General Appearance: awake, anxious, restless, extubated Head: evidence of injury, ecchymosis Neck: normal inspection, supple Respiratory: normal breath sounds, lungs clear Cardiovascular: irregularly irregular Gastrointestinal: normal bowel sounds, soft, nontender, no palpable organomegaly Extremities: right lower extremity cool to touch Results Last 24 Hrs of Lab Results: Laboratory Tests 03/09/18 0630: APTT Cancelled 03/09/18 0600: Anion Gap 10, Estimated GFR > 60, Glucose 133 H, Calcium 7.9 L, Phosphorus 3.2 , Magnesium 1.9, Total Bilirubin 0.6, AST 32, ALT 28, Albumin 2.5 L, APTT Pending, CBC w Diff MAN DIFF ORDERED, RBC 3.34 L, MCV 90.6, MCH 31.5 H, MCHC 34.8, RDW 14.3, MPV 12.1 H, Gran % 60.2, Lymphocytes % 12.7 L, Monocytes % 26.7 H, Eosinophils % 0.2, Basophils % 0.2, Absolute Granulocytes 9.3 H, Segmented Neutrophils 64, Band Neutrophils 7 H, Absolute Lymphocytes 2.0, Lymphocytes 10 L, Monocytes 16 H, Absolute Monocytes 4.1 H, Absolute Eosinophils 0, Absolute Basophils 0, Metamyelocytes 3 H, Platelet Estimate ADEQUATE, Normocytic RBCs VERIFIED, Normochromic RBCs VERIFIED 03/08/18 1755: APTT 64 H 03/08/18 0950: APTT 48 H Impression/Plan Impression/Plan Impression/Plan: 1. Ongoing encephelopathy and delirium (toxic/metabolic). 2. Seizures on Keppra and valproic acid. 3. Pneumonia, sputum positive for E coli and Staph, s/p antibiotic course. 4. NSVT. 5. Right lower extremity ischemia, possibly embolic. On heparin drip, vascular surgery following. 6. Significant alcohol use by history with probable DTs, marijuana and significant cocaine use. 7. Acute kidney injury, improving. 8. New leukocytosis with bandemia, rule out nosocomial infection. This may be related to lower extremity ischemia as well. Recommendations: * Check ammonia level now. * Check pancultures, including urine, blood and sputum. * Check a urinalysis and portable chest x-ray. * Monitor for signs of infection. * Start empiric antibiotics if the patient spikes a temperature or has obvious infection signs. * Check repeat labs at 6 PM today including a CBC and ICU bundle. * Attempt to wean Precedex down to off HERRERA. * Can not use antipsychotics due to ventricular arrhythmias. * Psychiatry consult to help with agitation. * Please asked neurology to re-evaluate the patient's mental status due to severe agitation and now being off sedation. * Continue Keppra and valproic acid. * Monitor for seizures. * Respiratory failure with stable respiratory status post extubation. * Continue 1:1 sitter. * Swallowing evaluation today. * Strict aspiration precautions. * Out of bed to chair. * Follow-up cardiology recommendations, continue amiodarone drip. * Continue to follow vascular surgery's recommendations regarding limb ischemia. * MVI/Thiamine/Folate.
--- NOTE | 2018-03-09 08:43 | PN- Resident CRCU ---
Subjective HPI/CRCU Issues: #Chronic Seizure Disorder, p/b status epilepticus, on keppra and valproate #R SFA Occlusion #Afib/episodes of NSVT #L nondisplaced transcondylear fracture, splinted #Nasal Bone and Septum Fracture #Acute Resp Distress s/p extubation 03/08 #Factitious thrombocytopenia #PEPPER, resolved 24 Hour Events: Patient seen and examined this am; he is extubated. He remains on 4 point restrains due considerable motor agitation. Precedex currently at 0.5 mcg/kg/hr. He does wake up with stimulus, though does not follow commands, acutely delirious. No telemetry events overnight. AM labs show important rise in WBC with bandemia - pt was pancultured. He has remained afebrile. Objective Vital Signs & I&O Last 8 Hrs of Vitals and I&O: Intake & Output 03/09 1600 03/09 0800 03/09 0000 Intake Total 1158 1175 Output Total 490 550 Balance 668 625 Intake, IV 1158 1175 Number 0 Bowel Movements Output, Urine 490 550 Patient 224 lb Weight Weight Bed scale Measurement Method Laboratory Tests 03/09 03/09 03/08 0630 0600 1755 Chemistry Sodium (137 - 145 mmol/L) 141 Potassium (3.5 - 5.1 mmol/L) 4.1 Chloride (98 - 107 mmol/L) 107 Carbon Dioxide (22 - 30 mmol/L) 24 Anion Gap (5 - 16) 10 BUN (9 - 20 mg/dL) 14 Creatinine (0.7 - 1.2 mg/dL) 1.0 Estimated GFR (>60 ml/min) > 60 Glucose (65 - 99 mg/dL) 133 H Calcium (8.4 - 10.2 mg/dL) 7.9 L Phosphorus (2.5 - 4.5 mg/dL) 3.2 Magnesium (1.6 - 2.3 mg/dL) 1.9 Total Bilirubin (0.2 - 1.3 mg/dL) 0.6 AST (17 - 59 U/L) 32 ALT (21 - 72 U/L) 28 Albumin (3.5 - 5.0 g/dL) 2.5 L Coagulation APTT (25 - 37 SEC) Cancelled 116 *H 64 H Hematology CBC w Diff MAN DIFF ORDERED WBC (4.8 - 10.8 /CUMM) 15.5 H RBC (4.70 - 6.10 /CUMM) 3.34 L Hgb (14.0 - 18.0 G/DL) 10.5 L Hct (42 - 52 %) 30.3 L MCV (80.0 - 94.0 FL) 90.6 MCH (27.0 - 31.0 PG) 31.5 H MCHC (33.0 - 37.0 G/DL) 34.8 RDW (11.5 - 14.5 %) 14.3 Plt Count (130 - 400 /CUMM) 175 MPV (7.4 - 10.4 FL) 12.1 H Gran % (42.2 - 75.2 %) 60.2 Lymphocytes % (20.5 - 51.1 %) 12.7 L Monocytes % (1.7 - 9.3 %) 26.7 H Eosinophils % (0 - 5 %) 0.2 Basophils % (0.0 - 2.0 %) 0.2 Absolute Granulocytes (1.4 - 6.5 /CUMM) 9.3 H Segmented Neutrophils (42.2 - 75.2 %) 64 Band Neutrophils (0.0 - 5.0 %) 7 H Absolute Lymphocytes (1.2 - 3.4 /CUMM) 2.0 Lymphocytes (20.5 - 51.1 %) 10 L Monocytes (1.7 - 9.3 %) 16 H Absolute Monocytes (0.10 - 0.60 /CUMM) 4.1 H Absolute Eosinophils (0.0 - 0.7 /CUMM) 0 Absolute Basophils (0.0 - 0.2 /CUMM) 0 Metamyelocytes (0.0 - 1.0 %) 3 H Platelet Estimate (ADEQUATE) ADEQUATE Normocytic RBCs VERIFIED Normochromic RBCs VERIFIED 03/08 0950 Coagulation APTT (25 - 37 SEC) 48 H Vital Signs Date Time Temp Pulse Resp B/P B/P Pulse O2 O2 Flow FiO2 Mean Ox Delivery Rate 03/09 0800 98 Nasal 3.0L Cannula 03/09 0800 96.6 78 34 114/70 98 Nasal 3.0L Cannula 03/09 0632 78 28 120/88 03/09 0554 88 30 133/104 03/09 0400 97 Nasal 3.0L Cannula 03/09 0147 83 96 03/09 0018 98.2 80 30 119/71 07/27 0000 97 Nasal 3.0L Cannula 03/09 0000 98.2 80 30 126/80 97 Nasal 3.0L Cannula 03/08 2000 94 Nasal 3.0L Cannula 03/08 1933 86 136/83 03/08 1715 99 180/100 03/08 1610 96 97 03/08 1600 99.0 86 37 160/97 93 BIPAP 40% 03/08 1600 93 BIPAP 40% 03/08 1415 88 97 03/08 1253 99 97 03/08 1200 100 BIPAP 50% 03/08 1155 112 165/112 03/08 0911 30 Exam General Appearance: awake, Pt mildly agitated, on 4 point restrains. Awake though not alert. Head: evidence of injury, ecchymosis Neck: normal inspection, supple Respiratory: normal breath sounds, no respiratory distress Cardiovascular: irregularly irregular Gastrointestinal: normal bowel sounds, soft, no organomegaly Extremities: B/L LE feel cold to touch with prolonged capillary refill. Pulses on doppler. Current Medications: Current Medications Sig/Louise Start time Last Medication Dose Route Stop Time Status Admin Acetaminophen 1,000 MG .STK-MED ONE 03/08 2312 DC IV 03/08 2313 Acetaminophen 1,000 MG ONCE ONE 03/08 2215 DC 03/08 N/A 1 UNIT IV 03/08 2229 2210 Amiodarone HCl/ 360 MG Q12H 03/07 0830 AC 03/09 Dextrose IV 0632 N/A 1 UNIT Aspirin 81 MG DAILY 03/08 0900 DC PO Atorvastatin Calcium 40 MG 1700 / 1700 AC 03/07 PO 1800 Dexmedetomidine HCl 400 MCG Q10H 03/08 2300 AC 03/09 Sodium Chloride 96 ML IV 0630 Dexmedetomidine HCl 400 MCG Q13H 03/08 1430 DC 03/08 Sodium Chloride 96 ML IV 1456 Dexmedetomidine HCl 400 MCG Q10H 03/08 0915 DC Sodium Chloride 96 ML IV Dextrose/Sodium 1,000 ML Q13H 03/08 1145 DC Chloride IV Docusate Sodium 100 MG DAILY NEEDED 03/02 0930 AC 03/02 PO 1057 Famotidine 20 MG BID 03/06 2100 DC 03/07 PO 2113 Heparin Sodium 5,000 UNIT ONCE ONE 03/08 1200 DC 03/08 (Porcine) IV 03/08 1201 1207 Heparin Sodium 5,000 UNIT .STK-MED ONE 03/08 1152 DC (Porcine) IV 03/08 1153 Heparin Sodium 25,000 UNIT Q24H 03/05 1615 AC 03/08 (Porcine) IV 1933 Sodium Chloride 500 ML Hydromorphone HCl 2 MG ONCE PRN 03/08 0300 AC 03/08 IV 0309 Levetiracetam 1,000 MG Q8 03/08 1400 AC 03/09 N/A 1 UNIT IV 0549 Levetiracetam 1,000 MG Q8 03/06 1400 DC 03/08 G TUBE 0601 Lorazepam 2 MG Q4 PRN 03/08 0200 AC 03/08 IV 0725 Metoprolol Tartrate 5 MG Q6 03/08 1200 AC 03/09 IV 0554 Metoprolol Tartrate 12.5 MG BID 03/06 2100 DC 03/07 PO 211 Naloxone HCl 0.4 MG .STK-MED ONE 03/08 2312 DC IV 03/08 2313 Naloxone HCl 0.4 MG ONCE ONE 03/08 1200 DC 03/08 IV 03/08 1201 1206 Pantoprazole Sodium 40 MG DAILY 03/08 1045 AC 03/08 IV 1155 Polyethylene Glycol 17 GM DAILY PRN 03/02 0930 AC 03/03 PO 0839 Potassium Chloride 40 MEQ ONCE ONE 03/08 1215 DC 03/08 Dextrose/Sodium 1,000 ML IV 03/09 0134 1342 Chloride Potassium Chloride 40 MEQ 75 MLS/HR 03/08 1200 DC IV 03/09 1201 Potassium Chloride 20 MEQ BID 03/08 0900 DC PO Senna 187 MG AT BEDTIME PRN 03/02 0930 AC 03/02 PO 1057 Valproate Sodium 1,000 MG Q12H 03/08 1200 AC 03/09 Sodium Chloride 100 ML IV 0018 Valproate Sodium 1,000 MG Q12 03/08 1044 CAN IV Valproic Acid 1,000 MG BID 03/06 0936 DC 03/07 PO 2113 Impression/Plan Impression/Problem List Impression: 67 y/o M with PMH of chronic seizure disorder on valproate, CAD s/p CABG and bovine aortic valve replacement in 2013, Hodgkins lymphoma, HTN and HLD that was brought to the ED after he was /found to be unresponsiveness. The patient was at his baseline on 02/25. On the ED the patient's respiratory drive was poor and he was intubated. The EKG on the ED showed transient A-fib that converted to SR and reconverted to Afib. He was admitted to the ICU for management of his acute seizure episode requiring intubation, now s/p extubation. Of note on 02/22, patient had a work related accident where he fell and landed on his face - CXR shows nasal bones and septum fracture. He also presented with a L nondisplaced supracondylear fracture. IMPRESSIONS #Chronic Seizure Disorder, p/b status epilepticus, on keppra and valproate #Acute Resp Distress s/p extubation 03/08 #R SFA Occlusion #Afib/ episodes of NSVT #L nondisplaced transcondylear fracture, splinted #Nasal Bone and Septum Fracture #Factitious thrombocytopenia #PEPPER, resolved #Chronic Seizure Disorder, p/b status epilepticus Pt has a long standing history of seizure disorder, compliant on his valproic acid as evidenced by records and laboratory studies (Urine Valproate in therapeutic range). Urine toxicology showed evidence of cocaine use, could have played a part into this latest seizure episode. Head CT (02/26) shows a chronic arachnoid cyst on the left anterior middle cranial fossa with some slight interval increase in size. He does have a history of ETOH use and while his serum alcohol was not impressive, a withdrawal induced seizure could still have been the culprit. Neurology was consulted and EEG showed no seizure activity, a follow up EEG showed diffuse cerebral dysfx like the first one. He is now extubated, being weaned off sedation, though still remains restless, acutely delirious. Psych and neuro input appreciated on recommendations. -Pt on keppra and valproate IV -F/u Psych recommendations -F/u neuro consult #Acute Resp Distress, s/p extubation On arrival, pt had poor inspiratory effort and there was concern for worsening status, so he was intubated. Aspiration PNA was likely, with a positive resp culture that grew pansensitive E. coli and Staph, so he was put on Unasyn for 7 days, now completed. Off abx, now with a rising WBC with 7% bandemia. Stat CXR and pancultured, he remains afebrile. Will continue to monitor. He was extubated on 03/08, swallow evaluation pending -Off abx -IV Unasyn dc'd (DAY #7- Complete) -F/u CXR -F/U cultures -F/u swallow eval #R SFA Occlusion Pt has been on a-fib since admission to the ICU - he was off systemic anticoagulation due to his multiple fractures in the nasal area and L nondisplaced transcondylear fracture. An arterial doppler U/S showed a R SFA occlusion. He has now been starting on heparin drip as benefits>risks. Vascular surgery was consulted and a CTA done on 03/01 that showed segmental occlusions of the distal right SFA. Latest doppler 03/04 showed interval worsening - vascular plan for R leg angiogram p/b embolectomy. Due to episodes of nonsustained monomorphic Vtach, surgery was cancelled pending cardiology's clearance. -R leg angiogram -f/u [facility] surgery recommendation #Factitious thrombocytopenia, resolved Pt's low PLT were due to clumping. PF4/ANEESH ordered and sent out, he was started on agatroban drip; they came back negative. Latest PLT count was 175. He is off argatroban and back on heparin. -Off argatroban, on heparin gtt -HIT work up negative #Afib / Episodes of NSVT Pt currently on afib. Extensive cardiac history of CAD s/p CABG, bioprosthetic valve replacement, HTN/HLD with a positive urine tox for cocaine. Echo (02/27) shows an aortic bioprostethic valve with no significant insufficiency though it was not visualized optimally. LVEF is 60%. Cardiology is following. Had a nonsustained wide complex tachycardia during the night 03/02. 11-beat run of vtach noted on 03/03, and a 21 beat run on 03/07, STAT ekg/trop negative for ischemic changes. He was started on an amiodarone drip as a result of his latest episode. -Metoprolol 5mg Iv q6 -Amiodarone drip #L nondisplaced transcondylear fracture, splinted On arrival, a L nondisplaced transcondylear fracture was noted. Pt is currently splinted. Orthopedics were consulted, and as per their recommendation, due to the patient's current status, a nonoperative management is recommended, though can be reconsidered on improvement of his status. Ice packs can be applied around the elbow. As per vascular surgery's recommendation, a CTA of L arm was ordered, showing possible occlusions within the deep and superficial arches of the hand. -Splint to remain -Ice packs around the elbow if needed #PEPPER, resolved Pt with BUN/Cr of 35/1.6 on admit, 14/1.0 now. -on D5 1/2 NS@75cc/h DNR/DNI DVT PPX: MECH, PHARM NPO Problem List: 1. Alcohol dependence with withdrawal 2. Status epilepticus 3. Seizure Pain Ratin (not assessed - pt not alert) Tomorrow's Labs & Rationales: cbc icu lab bundle Plan DVT/Prophylaxis: mechanical, pharmacological
[2018-03-09 09:02] LABS: PTT 116 SEC (25-37)
--- NOTE | 2018-03-09 10:37 | PN- Cardiology ---
Subjective Subjective: The patient is extubated. He is confused and remains in soft restraints. Objective Vital Signs and I&Os Vital Signs Date Time Temp Pulse Resp B/P B/P Pulse O2 O2 Flow FiO2 Mean Ox Delivery Rate 03/09 0800 98 Nasal 3.0L Cannula 03/09 0800 96.6 78 34 114/70 98 Nasal 3.0L Cannula 03/09 0632 78 28 120/88 03/09 0554 88 30 133/104 03/09 0400 97 Nasal 3.0L Cannula 03/09 0147 83 96 03/09 0018 98.2 80 30 119/71 03/09 0000 97 Nasal 3.0L Cannula 03/09 0000 98.2 80 30 126/80 97 Nasal 3.0L Cannula 03/08 2000 94 Nasal 3.0L Cannula 03/08 1933 86 136/83 03/08 1715 99 180/100 03/08 1610 96 97 03/08 1600 99.0 86 37 160/97 93 BIPAP 40% 03/08 1600 93 BIPAP 40% 03/08 1415 88 97 03/08 1253 99 97 03/08 1200 100 BIPAP 50% 03/08 1155 112 165/112 Intake & Output 03/09 1600 03/09 0800 03/09 0000 03/08 1600 03/08 0800 03/08 0000 Intake Total 1158 1175 862.3 1160 1300.6 Output Total 490 550 300 304 250 Balance 668 625 562.3 856 1050.6 Intake, IV 1158 1175 763.3 370 404.6 Intake, Tube 99 540 421 Feeding Intake, Tube 250 475 Irrigant Number 0 1 Bowel Movements Output, Urine 490 550 300 304 250 Patient 224 lb Weight Weight Bed scale Measurement Method Physical Exam: General: Confused Eyes: No obvious scleral icterus. HEENT: No jugular venous distention or abnormal jugular venous pulsations. Cardiovascular: Normal intensity S1/S2. Irregular Respiratory: Coarse breath sounds bilaterally Abdomen: no guarding Musculoskeletal: No clubbing; decreased lower extremity pulses; trace lower extremity edema Skin: No cyanosis Neurologic: Confused, in soft restraints Current Medications: Current Medications Sig/Louise Start time Last Medication Dose Route Stop Time Status Admin Acetaminophen 1,000 MG .STK-MED ONE 03/08 2312 DC IV 03/08 2313 Acetaminophen 1,000 MG ONCE ONE 03/08 2215 DC 03/08 N/A 1 UNIT IV 03/08 2229 2210 Amiodarone HCl/ 360 MG Q12H 03/07 0830 03/09 Dextrose IV 0632 N/A 1 UNIT Aspirin 81 MG DAILY 03/08 0900 DC PO Atorvastatin Calcium 40 MG 1700 03/01 1700 AC 03/07 PO 1800 Dexmedetomidine HCl 400 MCG Q10H 03/08 2300 AC 03/09 Sodium Chloride 96 ML IV 0630 Dexmedetomidine HCl 400 MCG Q13H 03/08 1430 DC 03/08 Sodium Chloride 96 ML IV 1456 Dexmedetomidine HCl 400 MCG Q10H 03/08 0915 DC Sodium Chloride 96 ML IV Dextrose/Sodium 1,000 ML Q13H 03/08 1145 DC Chloride IV Docusate Sodium 100 MG DAILY NEEDED 03/02 0930 03/02 PO 1057 Famotidine 20 MG BID 03/06 2100 DC 03/07 PO 2113 Heparin Sodium 5,000 UNIT ONCE ONE 03/08 1200 DC 03/08 (Porcine) IV 03/08 1201 1207 Heparin Sodium 5,000 UNIT .STK-MED ONE 03/08 1152 DC (Porcine) IV 03/08 1153 Heparin Sodium 25,000 UNIT Q24H 03/05 1615 03/08 (Porcine) IV 1933 Sodium Chloride 500 ML Hydromorphone HCl 2 MG ONCE PRN 03/08 0300 03/08 IV 0309 Levetiracetam 1,000 MG Q8 03/08 1400 AC 03/09 N/A 1 UNIT IV 0549 Levetiracetam 1,000 MG Q8 03/06 1400 DC 03/08 G TUBE 0601 Lorazepam 2 MG Q4 PRN 03/08 0200 03/08 IV 0725 Metoprolol Tartrate 5 MG Q6 03/08 1200 03/09 IV 0554 Metoprolol Tartrate 12.5 MG BID 03/06 2100 DC 03/07 PO 2113 Naloxone HCl 0.4 MG .STK-MED ONE 03/08 2312 DC IV 03/08 2313 Naloxone HCl 0.4 MG ONCE ONE 03/08 1200 DC 03/08 IV 03/08 1201 1206 Pantoprazole Sodium 40 MG DAILY 03/08 1045 03/09 IV 0915 Polyethylene Glycol 17 GM DAILY PRN 03/02 0930 03/03 PO 0839 Potassium Chloride 40 MEQ ONCE ONE 03/08 1215 DC 03/08 Dextrose/Sodium 1,000 ML IV 03/09 0134 1342 Chloride Potassium Chloride 40 MEQ 75 MLS/HR 03/08 1200 DC IV 03/09 1201 Potassium Chloride 20 MEQ BID 03/08 0900 DC PO Senna 187 MG AT BEDTIME PRN 03/02 0930 AC 03/02 PO 1057 Valproate Sodium 1,000 MG Q12H 03/08 1200 AC 03/09 Sodium Chloride 100 ML IV 0018 Valproate Sodium 1,000 MG Q12 03/08 1044 CAN IV Valproic Acid 1,000 MG BID 03/06 0936 DC 03/07 PO 2113 Results Last 48 Hrs of Labs/Mics: Laboratory Tests 03/09/18 1020: Ammonia Pending 03/09/18 0630: APTT Cancelled 03/09/18 0600: Anion Gap 10, Estimated GFR > 60, Glucose 133 H, Calcium 7.9 L, Phosphorus 3.2 , Magnesium 1.9, Total Bilirubin 0.6, AST 32, ALT 28, Albumin 2.5 L, APTT 116 * H, CBC w Diff MAN DIFF ORDERED, RBC 3.34 L, MCV 90.6, MCH 31.5 H, MCHC 34.8, RDW 14.3, MPV 12.1 H, Gran % 60.2, Lymphocytes % 12.7 L, Monocytes % 26.7 H, Eosinophils % 0.2, Basophils % 0.2, Absolute Granulocytes 9.3 H, Segmented Neutrophils 64, Band Neutrophils 7 H, Absolute Lymphocytes 2.0, Lymphocytes 10 L, Monocytes 16 H, Absolute Monocytes 4.1 H, Absolute Eosinophils 0, Absolute Basophils 0, Metamyelocytes 3 H, Platelet Estimate ADEQUATE, Normocytic RBCs VERIFIED, Normochromic RBCs VERIFIED 03/08/18 1755: APTT 64 H 03/08/18 0950: APTT 48 H 03/08/18 0415: Anion Gap 10, Estimated GFR > 60, Glucose 90, Calcium 7.9 L, Phosphorus 3.1, Magnesium 2.0, Total Bilirubin 0.6, AST 36, ALT 32, Albumin 2.4 L, CBC w Diff MAN DIFF ORDERED, RBC 3.63 L, MCV 90.0, MCH 30.9, MCHC 34.4, RDW 14.0, MPV 12.4 H, Gran % 50.3, Lymphocytes % 17.2 L, Monocytes % 32.2 H, Eosinophils % 0.1, Basophils % 0.2, Absolute Granulocytes 4.6, Segmented Neutrophils 60, Absolute Lymphocytes 1.6, Lymphocytes 18 L, Monocytes 22 H, Absolute Monocytes 3.0 H, Absolute Eosinophils 0, Absolute Basophils 0, Platelet Estimate ADEQUATE, Polychromasia 1+, Poikilocytosis 1+, Ovalocytes 1+, Fld Total RBCs Counted 100 03/07/18 2126: APTT 68 H 03/07/18 1426: APTT > 120 *H Recent Imaging Studies: Telemetry tracings are personally reviewed and show atrial fibrillation Assessment/Plan Assessment/Plan 1. Seizure disorder/ecephalopathy 2. Atrial fibrillation, was not on chronic AC due to seizure disorder with refractory polysubstance abuse 3. Coronary artery disease status post CABG 4. Bioprosthetic aortic valve 5. Nonsustained wide complex tachycardia 6. Peripheral vascular disease 7. 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 polysubstance abuse, including cocaine 9. Hypertension 10. Hyperlipidemia 11. ?thrombocytopenia; improved 12. PNA The patient is confused this morning and remains in soft restraints. Telemetry shows continued atrial fibrillation with no recurrent runs of ventricular tachycardia. We will continue on the beta-boom and low-dose amiodarone infusion for now. Resume daily aspirin when able. He remains on intravenous heparin drip. Juan Magallon MD [facility] Continue telemetry? Yes
--- NOTE | 2018-03-09 12:09 | RADIOLOGY REPORT ---
EXAMINATION: XR PORTABLE CHEST CLINICAL INFORMATION: Recent extubation. Leukocytosis. Suspected pneumonia. COMPARISON: Chest done on 03/08/2018. TECHNIQUE: Portable 70 degrees frontal view of the chest was obtained. FINDINGS: Mild pulmonary venous congestion is present. Nonspecific patchy airspace disease is noted at both mid to lower lung field (right greater than left), may represent pneumonia, edema or combination thereof. The cardiomediastinal silhouette is mildly enlarged. There is suggestion of trace bilateral pleural effusions present. When compared to prior study, the lung and the pleural findings appear new. Given the rapidity, likely represent CHF. IMPRESSION: Possible CHF. Superimposed pneumonia as you know is not excluded.
--- NOTE | 2018-03-09 14:07 | Cons- Psychiatry ---
Psychiatric Consult Date of Consult: 03/09/18 Reason for Consult: Asked to see regarding management of agitation History of Present Illness: This 67-year-old male was admitted on February 26 having been found unresponsive at home. On the way to hospital he had a seizure. The patient was intubated secondary to acute respiratory failure. On admission the patient's urine was positive for cocaine [over 1000], cannabis and benzodiazepines. There was reported history of alcohol use. Throughout the course of admission the patient has had unstable ventricular arrhythmias and is currently on amiodarone drip. The patient was extubated until yesterday. Since extubation he has been agitated. Since admission the patient has been treated with propofol, lorazepam and most recently dexmedetomidine. The patient is currently taking Depakote as a therapeutic level and levetiracetam [level pending] for seizure disorder. He is delirious, agitated and currently in soft restraints. Unable to establish psychiatric/substance abuse history though records reveal that the patient tested positive for cocaine, cannabis and benzodiazepines when last tested here in 2014. Allergies: Coded Allergies: bee venom protein (honey bee) (UNKNOWN 02/26/18) Past History Past Medical History Any Pertinent Medical History? unobtainable Neurological: seizure Cardiovascular: hypertension, hyperlipidemia Respiratory: NONE Renal: nephrolithiasis Musculoskeletal: NEUROPATHY FEET & HANDS Cancer(s): hodgkins lymphoma Past Surgical History Surgical History: CABG, BACK SURGERY, BILATERAL THUMB REPLACMENT AVR Assessment/Plan Mental Status Orientation: Confused Mental Status Exam: The patient was seen in ICU where he was in soft restraints on his bed. He was significant bruising mildly agitated. The patient made no eye contact. He turned his head in response to his name but there was no further communication. He mumbles continually at low volume and his words were largely distant visual. Occasional distinguishable words such as "car" were clearly unrelated to his present situation. Extrinsic visual hallucinations unable to assess thought process. Unable to assess mood. Affect was agitated. Unable to assess insight. Judgment impaired. Diffential Diagnosis: ICU delirium Possible ongoing seizure actiivity Impression: The patient is delirious and agitated. Ammonia level is normal. Treatment options complicated by unstable ventricular arrhythmias. Provisional Treatment Plan: - Management of his delirium necessitates the use of an antipsychotic. Second- generation antipsychotics are preferable. The least harmful medication would be risperidone. Suggest 0.5 mg risperidone at a.m. and at bedtime being mindful of possible cholinergic side effects. Please consult with cardiology prior to commencing this medication. -Benzodiazepines may be necessary for sedation. Suggest lorazepam 1 mg every 6 hours as needed. -Suggest neurology stay involved. Psychiatry will follow. Thank you for consulting us on this patient.
--- NOTE | 2018-03-09 14:20 | Incdntl Nt Psy ---
Incidental Note Notation: If patient cannot take meds po suggest managing with benzodiazepines and increasing depakote. If an antipschotic is unavoidable intravenous haloperidol can be used with caution and with cardiology approval.
--- NOTE | 2018-03-09 14:36 | PN- Neurology ---
Subjective Subjective: This is a 67 year old man that was admitted for breakthrough seizures abou 10 days ago. He is known for complex partial seizure disorder with secondary generalization and takes Depakote for that. He is usually compliant with it. However, he also goes through periods of drinking alcohol more heavily. That was the case of the period leading into these breakthrough seizures. In the ER he was loaded on Keppra and has since been on Keppra on top of Depakote. He was noted to be highly irritable, restless and pulling on lines. He continues to be this way despite being alert. We were therefore called to follow up. Review of Systems: no change. Objective Vital Signs and I&Os Vital Signs Date Time Temp Pulse Resp B/P B/P Pulse O2 O2 Flow FiO2 Mean Ox Delivery Rate 03/09 1156 128/90 03/09 0800 98 Nasal 3.0L Cannula 03/09 08 96.6 78 34 114/70 98 Nasal 3.0L Cannula 03/09 0632 78 28 120/88 03/09 0554 88 30 133/104 03/09 0400 97 Nasal 3.0L Cannula 03/09 0147 83 96 03/09 0018 98.2 80 30 119/71 03/09 0000 97 Nasal 3.0L Cannula 03/09 0000 98.2 80 30 126/80 97 Nasal 3.0L Cannula 03/08 2000 94 Nasal 3.0L Cannula 03/08 1933 86 136/83 03/08 1715 99 180/100 03/08 1610 96 97 03/08 1600 99.0 86 37 160/97 93 BIPAP 40% 03/08 1600 93 BIPAP 40% Intake & Output 03/09 1600 03/09 0800 03/09 0000 03/08 1600 03/08 0800 03/08 0000 Intake Total 1158 1175 862.3 1160 1300.6 Output Total 490 550 300 304 250 Balance 668 625 562.3 856 1050.6 Intake, IV 1158 1175 763.3 370 404.6 Intake, Tube 99 540 421 Feeding Intake, Tube 250 475 Irrigant Number 0 1 Bowel Movements Output, Urine 490 550 300 304 250 Patient 224 lb Weight Weight Bed scale Measurement Method Physical Exam: Alert, hypophonic, thrashing around his restrained limbs. Does not seem oriented to time or place. EOMI, СЕРГЕЙ, face symmetric. Limb movement seems equal. Current Medications: Current Medications Sig/Louise Start time Last Medication Dose Route Stop Time Status Admin Acetaminophen 1,000 MG .STK-MED ONE 03/08 2312 DC IV 03/08 231 Acetaminophen 1,000 MG ONCE ONE 03/08 2215 HI 03/08 N/A 1 UNIT IV 03/08 2229 2210 Amiodarone HCl/ 360 MG Q12H 03/07 0830 03/09 Dextrose IV 0632 N/A 1 UNIT Atorvastatin Calcium 40 MG 1700 03/01 1700 03/07 PO 1800 Dexmedetomidine HCl 400 MCG Q10H 03/08 2300 HI 03/09 Sodium Chloride 96 ML IV 0630 Dexmedetomidine HCl 400 MCG Q13H 03/08 1430 HI 03/08 Sodium Chloride 96 ML IV 1456 Diphenhydramine HCl 50 MG Q8P PRN 03/09 1415 AC IM Docusate Sodium 100 MG DAILY NEEDED 03/02 0930 03/02 PO 1057 Haloperidol 1 MG Q8P PRN 03/09 1415 AC IM Heparin Sodium 25,000 UNIT Q24H 03/05 1615 03/08 (Porcine) IV 1933 Sodium Chloride 500 ML Hydromorphone HCl 2 MG ONCE PRN 03/08 0300 03/08 IV 0309 Levetiracetam 1,000 MG Q8 03/08 1400 03/09 N/A 1 UNIT IV 1313 Lorazepam 2 MG Q4 PRN 03/08 0200 03/08 IV 0725 Metoprolol Tartrate 5 MG Q6 03/08 1200 03/09 IV 1156 Naloxone HCl 0.4 MG .STK-MED ONE 03/08 2312 DC IV 03/08 2313 Pantoprazole Sodium 40 MG DAILY 03/08 1045 03/09 IV 0915 Polyethylene Glycol 17 GM DAILY PRN 03/02 0930 03/03 PO 0839 Potassium Chloride 40 MEQ ONCE ONE 03/08 1215 HI 03/08 Dextrose/Sodium 1,000 ML IV 03/09 0134 1342 Chloride Senna 187 MG AT BEDTIME PRN 03/02 0930 03/02 PO 1057 Valproate Sodium 1,000 MG Q12H 03/08 1200 03/09 Sodium Chloride 100 ML IV 1156 Results Last 24 Hours of Lab Results: Laboratory Tests 03/09 03/09 03/09 1030 1020 0630 Chemistry Ammonia (9 - 30 umol/L) < 9 L Coagulation APTT Cancelled Urines Urine Color (YEL,AMB,STR) YEL Urine Clarity (CLEAR) CLEAR Urine pH (5.0 - 8.0) 6.0 Ur Specific [place] (1.001 - 1.035) 1.015 Urine Protein (NEG,<30 MG/DL) NEG Urine Ketones (NEG) NEG Urine Nitrite (NEG) NEG Urine Bilirubin (NEG) NEG Urine Urobilinogen (0.1 - 1.0 EU/dl) 1.0 Ur Leukocyte Esterase (NEG) NEG Ur Microscopic SEDIMENT EXAMINED Urine RBC (0 - 5 /HPF) 50-75 H Urine WBC (0 - 2 /HPF) 1-3 H Ur Epithelial Cells (NONE,FEW) RARE Urine Bacteria (NEG/NONE) RARE H Urine Mucus (FEW,NONE) RARE Urine Hemoglobin (NEG) MOD H Urine Glucose (N MG/DL) NEG 03/09 03/08 0600 1755 Chemistry Sodium (137 - 145 mmol/L) 141 Potassium (3.5 - 5.1 mmol/L) 4.1 Chloride (98 - 107 mmol/L) 107 Carbon Dioxide (22 - 30 mmol/L) 24 Anion Gap (5 - 16) 10 BUN (9 - 20 mg/dL) 14 Creatinine (0.7 - 1.2 mg/dL) 1.0 Estimated GFR (>60 ml/min) > 60 Glucose (65 - 99 mg/dL) 133 H Calcium (8.4 - 10.2 mg/dL) 7.9 L Phosphorus (2.5 - 4.5 mg/dL) 3.2 Magnesium (1.6 - 2.3 mg/dL) 1.9 Total Bilirubin (0.2 - 1.3 mg/dL) 0.6 AST (17 - 59 U/L) 32 ALT (21 - 72 U/L) 28 Albumin (3.5 - 5.0 g/dL) 2.5 L Coagulation APTT (25 - 37 SEC) 116 *H 64 H Hematology CBC w Diff MAN DIFF ORDERED WBC (4.8 - 10.8 /CUMM) 15.5 H RBC (4.70 - 6.10 /CUMM) 3.34 L Hgb (14.0 - 18.0 G/DL) 10.5 L Hct (42 - 52 %) 30.3 L MCV (80.0 - 94.0 FL) 90.6 MCH (27.0 - 31.0 PG) 31.5 H MCHC (33.0 - 37.0 G/DL) 34.8 RDW (11.5 - 14.5 %) 14.3 Plt Count (130 - 400 /CUMM) 175 MPV (7.4 - 10.4 FL) 12.1 H Gran % (42.2 - 75.2 %) 60.2 Lymphocytes % (20.5 - 51.1 %) 12.7 L Monocytes % (1.7 - 9.3 %) 26.7 H Eosinophils % (0 - 5 %) 0.2 Basophils % (0.0 - 2.0 %) 0.2 Absolute Granulocytes (1.4 - 6.5 /CUMM) 9.3 H Segmented Neutrophils (42.2 - 75.2 %) 64 Band Neutrophils (0.0 - 5.0 %) 7 H Absolute Lymphocytes (1.2 - 3.4 /CUMM) 2.0 Lymphocytes (20.5 - 51.1 %) 10 L Monocytes (1.7 - 9.3 %) 16 H Absolute Monocytes (0.10 - 0.60 /CUMM) 4.1 H Absolute Eosinophils (0.0 - 0.7 /CUMM) 0 Absolute Basophils (0.0 - 0.2 /CUMM) 0 Metamyelocytes (0.0 - 1.0 %) 3 H Platelet Estimate (ADEQUATE) ADEQUATE Normocytic RBCs VERIFIED Normochromic RBCs VERIFIED Recent Imaging Studies: FINDINGS: There is a stable CSF attenuation structure in the left perisylvian region/anterior aspect of the left middle cranial fossa compatible with an arachnoid cyst, unchanged in configuration from the prior. There is regional mass effect without shift of the normally midline structures. There is no hemorrhage, edema, shift of the normally midline structures,, or evolving territorial infarct. No new extra-axial collection. Attenuation within the brain parenchyma is within normal limits. The ventricles and sulci appear normal in caliber and configuration. No acute osseous abnormality. Mild mucosal thickening in the ethmoid and sphenoid air cells with some secretions in the left sphenoid air cell. The nasal cavity demonstrates rightward nasal septal deviation with spurring. The mastoid air cells are clear. The senior software tester view demonstrates that the patient remains intubated. IMPRESSION: No acute intracranial abnormality. Stable arachnoid cyst in the left middle cranial fossa. Assessment/Plan Assessment: 67 year old man with Epilepsy that is non-compliant with alcohol absitnence and has bouts of breakthrough seizures every time he drinks. Towards that it would not matter which combination and how much medication we put him on if he continues to drink. Further, he was load and currently placed on a high dose of Keppra which is a bad choice for him as he is akathetic, restless and irritable from it. Plan: 1. Start gabapentin 300mg PO tid and reduce Keppra to 1000mg q12h. 2. In 2 days time reduce Keppra to 500mg bid and two days later reduce to zero, which increasing gabapentin to 600mg tid. Removing Keppra and adding gabapentin should reduce his irritability and alcohol craving. Further, gabapentin is still an anti-epileptic. 3. In the longrun should be set up for Alcohol rehab becuase that is the real reason he has having breakthrough seizure, and no one medicaiton is going to correct that.
[2018-03-09 16:00] VITALS: BP 152/82
[2018-03-09 17:53] LABS: PTT 45 SEC (25-37)
[2018-03-10] VITALS: BP 140/80
[2018-03-10 00:48] LABS: PTT 65 SEC (25-37)
[2018-03-10 05:36] LABS: ABSOLUTE BASOPHIL COUNT 0 /CUMM (0.0-0.2); ABSOLUTE EOSINOPHIL COUNT 0 /CUMM (0.0-0.7); ABSOLUTE GRANULOCYTE CT 6.7 /CUMM (1.4-6.5); ABSOLUTE LYMPH COUNT 1.5 /CUMM (1.2-3.4); ABSOLUTE MONOCYTE COUNT 2.6 /CUMM (0.10-0.60); BASOPHIL % 0.1 % (0.0-2.0); EOSINOPHIL % 0.2 % (0-5); HEMATOCRIT 33.3 % (42-52); MEAN CORPUSCULAR HGB 30.9 PG (27.0-31.0); MEAN CORPUSCULAR VOLUME 90.8 FL (80.0-94.0); PLATELET COUNT 164 /CUMM (130-400); RBC DISTRIBUTION WIDTH 14.2 % (11.5-14.5); RED BLOOD CELL CT 3.67 /CUMM (4.70-6.10); WHITE BLOOD CELL COUNT 10.9 /CUMM (4.8-10.8)
--- NOTE | 2018-03-10 07:26 | PN- CRCU ---
Subjective HPI/Critical Care Issues: The patient remains intermittently confused and agitated. The patient has not able to offer complaints. He continues to be observed by a 1:1 sitter. He remains on a heparin drip and amiodarone drip. He remains in atrial fibrillation, rate controlled. The patient is afebrile. His oxygen saturations are in the high 90s on 2 L nasal cannula. He has excellent urine output. There were no overnight events reported. Objective Current Medications: Current Medications Sig/Louise Start time Last Medication Dose Route Stop Time Status Admin Acetaminophen 1,000 MG ONCE ONE 03/09 1815 DC 03/09 N/A 1 UNIT IV 03/09 1829 1820 Amiodarone HCl/ 360 MG Q12H 03/07 0830 03/10 Dextrose IV 0401 N/A 1 UNIT Atorvastatin Calcium 40 MG 1700 03/01 1700 AC 03/07 PO 1800 Dexmedetomidine HCl 400 MCG Q10H 03/08 2300 IA 03/09 Sodium Chloride 96 ML IV 0630 Diphenhydramine HCl 50 MG Q8P PRN 03/09 1415 AC IM Docusate Sodium 100 MG DAILY NEEDED 03/02 0930 AC 03/02 PO 1057 Haloperidol 1 MG Q8P PRN 03/09 1415 AC IM Heparin Sodium 4,064 UNIT ONE ONE 03/09 1800 DC 03/09 (Porcine) IV 03/09 1801 1830 Heparin Sodium 25,000 UNIT Q24H 03/05 1615 03/10 (Porcine) IV 0703 Sodium Chloride 500 ML Hydromorphone HCl 2 MG ONCE PRN 03/08 0300 03/08 IV 0309 Levetiracetam 1,000 MG Q12 03/09 2100 AC 03/09 N/A 1 UNIT IV 2133 Levetiracetam 1,000 MG Q8 03/08 1400 DC 03/09 N/A 1 UNIT IV 1313 Lorazepam 1 MG Q8 03/09 1516 03/10 IV 0547 Lorazepam 2 MG Q4 PRN 03/08 0200 03/08 IV 0725 Magnesium Sulfate 1 GM ONCE ONE 03/10 0645 AC Dextrose/Water 100 ML IV 03/10 0744 Metoprolol Tartrate 5 MG Q6 03/08 1200 AC 03/10 IV 0549 Pantoprazole Sodium 40 MG DAILY 03/08 1045 AC 03/09 IV 0915 Polyethylene Glycol 17 GM DAILY PRN 03/02 0930 AC 03/03 PO 0839 Senna 187 MG AT BEDTIME PRN 03/02 0930 AC 03/02 PO 1057 Valproate Sodium 1,000 MG Q12H 03/08 1200 AC 03/09 Sodium Chloride 100 ML IV 2359 Vital Signs & I&O Last 24 Hrs of Vitals and I&O: Vital Signs Date Time Temp Pulse Resp B/P B/P Pulse O2 O2 Flow FiO2 Mean Ox Delivery Rate 03/10 0549 98 28 159/98 03/10 0401 97.4 83 18 169/99 03/10 0003 97.4 81 28 140/80 03/10 0000 97 Nasal 2.0L Cannula 03/10 0000 97.4 81 18 140/80 97 Nasal 2.0L Cannula 03/09 2359 97.4 81 28 140/80 03/09 2000 Nasal 2.0L Cannula 03/09 1736 79 128/91 03/09 1725 83 128/91 03/09 1600 Nasal 3.0L Cannula 03/09 1600 97.6 82 31 152/82 98 Nasal 3.0L Cannula 03/09 1200 96 Nasal 3.0L Cannula 03/09 1156 128/90 03/09 0800 98 Nasal 3.0L Cannula 03/09 0800 96.6 78 34 114/70 98 Nasal 3.0L Cannula Intake & Output 03/10 0800 03/10 0000 03/09 1600 Intake Total 498 611 Output Total 550 650 Balance -52 -39 Intake, IV 498 611 Intake, Oral 0 Number 1 Bowel Movements Output, Urine 550 650 Exam General Appearance: awake, anxious, restless Head: evidence of injury, ecchymosis Neck: normal inspection, supple Respiratory: normal breath sounds, lungs clear Cardiovascular: irregularly irregular Gastrointestinal: normal bowel sounds, soft, nontender, no palpable organomegaly Extremities: right lower extremity cool to touch, multiple areas of bruising, left upper extremity dressings in place Results Last 24 Hrs of Lab Results: Laboratory Tests 03/10/18 0410: Anion Gap 13, Estimated GFR > 60, Glucose 78, Calcium 8.1 L, Phosphorus 3.5, Magnesium 1.9, Total Bilirubin 0.8, AST 34, ALT 33, Albumin 2.7 L, CBC w Diff MAN DIFF ORDERED, RBC 3.67 L, MCV 90.8, MCH 30.9, MCHC 34.0, RDW 14.2, MPV 13.0 H, Gran % 62.0, Lymphocytes % 13.5 L, Monocytes % 24.2 H, Eosinophils % 0.2, Basophils % 0.1, Absolute Granulocytes 6.7 H, Segmented Neutrophils 62, Band Neutrophils 6 H, Absolute Lymphocytes 1.5, Lymphocytes 13 L, Monocytes 17 H, Absolute Monocytes 2.6 H, Absolute Eosinophils 0, Absolute Basophils 0, Metamyelocytes 2 H, Platelet Estimate ADEQUATE, Normal RBC Morphology V, Normocytic RBCs VERIFIED, Fld Total RBCs Counted 100 03/10/18 0000: APTT 65 H 03/09/18 1800: Sodium Cancelled, Potassium Cancelled, Chloride Cancelled, Carbon Dioxide Cancelled, Anion Gap Cancelled, BUN Cancelled, Creatinine Cancelled, Glucose Cancelled, Calcium Cancelled, Phosphorus Cancelled, Magnesium Cancelled, Total Bilirubin Cancelled, AST Cancelled, ALT Cancelled, Albumin Cancelled, CBC w Diff Cancelled, WBC Cancelled, RBC Cancelled, Hgb Cancelled, Hct Cancelled, MCV Cancelled, MCH Cancelled, MCHC Cancelled, RDW Cancelled, Plt Count Cancelled, MPV Cancelled 03/09/18 1617: APTT 45 H 03/09/18 1030: Urine Color YEL, Urine Clarity CLEAR, Urine pH 6.0, Ur Specific [place] 1.015, Urine Protein NEG, Urine Ketones NEG, Urine Nitrite NEG, Urine Bilirubin NEG, Urine Urobilinogen 1.0, Ur Leukocyte Esterase NEG, Ur Microscopic SEDIMENT EXAMINED, Urine RBC 50-75 H, Urine WBC 1-3 H, Ur Epithelial Cells RARE, Urine Bacteria RARE H, Urine Mucus RARE, Urine Hemoglobin MOD H, Urine Glucose NEG 03/09/18 1020: Ammonia < 9 L Last 24 Hrs of Micro Results: Cultures negative so far. Diagnostic Data CXR Findings: Possible CHF. Superimposed pneumonia is not excluded. Impression/Plan Impression/Plan Impression/Plan: 1. Ongoing encephelopathy and delirium (toxic/metabolic). 2. Seizures on valproic acid. Keppra stopped yesterday as this could cause delirium. 3. Pneumonia, sputum positive for E coli and Staph, s/p antibiotic course. 4. NSVT on amiodarone drip. The patient remains in atrial fibrillation. 5. SFA occlusion, right lower extremity. No signs of left hand ischemia. 6. Significant alcohol use by history with probable DTs, marijuana and significant cocaine use. 7. Acute kidney injury, improving. 8. Leukocytosis with bandemia, rule out nosocomial infection. This may be related to lower extremity ischemia as well. WBC count trending down. UA negative, cultures from 03/09 negative so far. CXR from 03/09 showed possible CHF; pneumonia could not be excluded. Recommendations: * Continue 1:1 sitter until agaitation improves. * Follow up cultures. * Monitor for signs of infection. * Start empiric antibiotics if the patient spikes a temperature or has obvious infection signs. * Appreciate psychiatry and neurology recommendations to help with delirium/ agitation. Will continue to follow recommendations. * Continue valproic acid. * Monitor for seizures. * Strict aspiration precautions. Speech therapy evaluations ongoing. * Out of bed to chair. * Follow-up cardiology recommendations, continue amiodarone and heparin drips. * MVI/Thiamine/Folate. * Continue to monitor in the critical care unit.
[2018-03-10 08:00] VITALS: BP 134/90
--- NOTE | 2018-03-10 08:08 | PN- Resident CRCU ---
Subjective HPI/CRCU Issues: Seizure Disorder, on keppra and valproate L nondisplaced transcondylear fracture, splinted Nasal Bone and Septum Fracture Afib/episodes of NSVT Peripheral vascular disease, R SFA Occlusion Acute Resp Distress s/p extubation 03/08 Pseudothrombocytopenia Acute kidney injury 24 Hour Events: Haldol and benadryl prn were started yesterday for agitation although the patient hasn't received any doses, QTc 505-515 Precedex was discontinued, received ativan 1mg x 3 doses past 24 hours Remains delirious and unable to participate in swallow evaluation, NPO, aspiration risk Objective Vital Signs & I&O Last 8 Hrs of Vitals and I&O: Intake & Output 03/10 1600 Intake Total Output Total Balance Patient 101.151 kg Weight Weight Bed scale Measurement Method Temp 98.4, HR 88, RR 30, BP 134/90, SpO2 98% on 2L Exam General Appearance: awake, delirious and tachypneic, following simple commands but unintelligible inappropriate responses, opening eyes to voice and light touch Respiratory: decreased breath sounds, rhonchi, upper transmitted airway noises, wet cough Cardiovascular: irregularly irregular Gastrointestinal: normal bowel sounds, soft, non-tender Extremities: normal inspection, normal capillary refill, no edema Current Medications: Current Medications Sig/Louise Start time Last Medication Dose Route Stop Time Status Admin Acetaminophen 1,000 MG ONCE ONE 03/09 1815 DC 03/09 N/A 1 UNIT IV 03/09 1829 1820 Amiodarone HCl/ 360 MG Q12H 03/07 0830 AC 03/10 Dextrose IV 0401 N/A 1 UNIT Atorvastatin Calcium 40 MG 1700 03/01 1700 AC 03/07 PO 1800 Dexmedetomidine HCl 400 MCG Q10H 03/08 2300 DC 03/09 Sodium Chloride 96 ML IV 0630 Diphenhydramine HCl 50 MG Q8P PRN 03/09 1415 AC IM Docusate Sodium 100 MG DAILY NEEDED 03/02 0930 AC 03/02 PO 1057 Haloperidol 1 MG Q8P PRN 03/09 1415 AC IM Heparin Sodium 4,064 UNIT ONE ONE 03/09 1800 DC 03/09 (Porcine) IV 03/09 1801 1830 Heparin Sodium 25,000 UNIT Q24H 03/05 1615 AC 03/10 (Porcine) IV 0703 Sodium Chloride 500 ML Hydromorphone HCl 2 MG ONCE PRN 03/08 0300 AC 03/08 IV 0309 Levetiracetam 1,000 MG Q12 03/09 2100 AC 03/10 N/A 1 UNIT IV 0913 Levetiracetam 1,000 MG Q8 03/08 1400 DC 03/09 N/A 1 UNIT IV 1313 Lorazepam 1 MG Q8 03/09 1516 AC 03/10 IV 0547 Lorazepam 2 MG Q4 PRN 03/08 0200 AC 03/08 IV 0725 Magnesium Sulfate 1 GM ONCE ONE 03/10 0645 DC 03/10 Dextrose/Water 100 ML IV 03/10 0744 0700 Metoprolol Tartrate 5 MG Q6 03/08 1200 AC 03/10 IV 0549 Pantoprazole Sodium 40 MG DAILY 03/08 1045 AC 03/10 IV 0912 Polyethylene Glycol 17 GM DAILY PRN 03/02 0930 AC 03/03 PO 0839 Potassium Chloride 10 MEQ Q1H 03/10 1045 DC IV 03/10 1146 Senna 187 MG AT BEDTIME PRN 03/02 0930 AC 03/02 PO 1057 Valproate Sodium 1,000 MG Q12H 03/08 1200 AC 03/10 Sodium Chloride 100 ML IV 1100 CXR Findings: FINDINGS: Mild pulmonary venous congestion is present. Nonspecific patchy airspace disease is noted at both mid to lower lung field (right greater than left), may represent pneumonia, edema or combination thereof. The cardiomediastinal silhouette is mildly enlarged. There is suggestion of trace bilateral pleural effusions present. When compared to prior study, the lung and the pleural findings appear new. Given the rapidity, likely represent CHF. IMPRESSION: Possible CHF. Superimposed pneumonia as you know is not excluded. Impression/Plan Impression/Problem List Impression: 67 year old male with PMH of chronic seizure disorder on valproate, CAD s/p CABG and bovine aortic valve replacement in 2013, Hodgkins lymphoma, HTN and HLD was BIBA after being found down at home with witnessed seizures en route tx'd with midazolam with probable related facial trauma and left humeral fracture. He was intubated for airway protection and poor respiratory drive and started on propofol gtt for possible status epilepticus. His urine toxicology was positive for cocaine and benzodiazepines, negative for alcohol, and he has new atrial fibrillation from admission. He was started on antiepileptics Keppra and Depakote, with cerebral dysfunction on EEGs on propofol, without evidence of active seizures and successfully extubated after ten days. He did have some non sustained ventricular tachycardia and is on an amiodarone drip, remains in afib, and some decreased perfusion to his right lower extremity on heparin gtt. He currently remains delirious and NPO, neurology is adjusting his antiepileptics, and haldol was added for agitation but not given, QTc is currently 513. Chronic Seizure Disorder, p/b status epilepticus, on keppra and valproate, extubated 03/08 R SFA Occlusion with cool RLE Afib/ episodes of NSVT L nondisplaced transcondylear fracture, splinted Nasal Bone and Septum Fracture Factitious thrombocytopenia Acute kidney injury, resolved Delirium-toxic metabolic encephalopathy and recent seizure possible status epilepticus: On valproic acid at home, therapeutic levels Urine toxicology showed evidence of cocaine use Head CT (02/26) shows a chronic arachnoid cyst on the left anterior middle cranial fossa History of ETOH use, negative serum alcohol, could be withdrawal seizure EEG showed no seizure activity but diffuse cerebral dysfunction Acutely delirious-Psych and neurology consulted, follow up recommendations Electrolytes and ammonia wnl, prolonged intubation/ICU delirium with sedative meds Can given haldol prn for agitation, try to limit benzodiazepines, r/o infectious delirium Continue valproate IV, keppra decreased from 1g q8h to q12h Will decrease further when neurontin able to be started after swallow evaluation Followup Psych recommendations, risperidone PO after PO resumes Followup neurology recommendations Intubated for airway protection with altered mental status for ten days s/p extubation Treated for aspiration PNA positive sputum culture that grew pansensitive E. coli and Staph Completed 1 week course of Unasyn, now leukocytosis and bandemia, monitoring off abx Afebrile, Follow up cultures Swallow evaluation pending improved mental status, NPO after extubation 03/08 Chest [id number] patchy airspace disease, vascular congestion CHF more likely than PNA with positive fluid balance, consider checking proBNP R SFA Occlusion Possibly embolic with afib not anticoagulated and underlying PVD An arterial doppler U/S showed a R SFA occlusion Currently on heparin drip CTA done on 03/01 that showed segmental occlusions of the distal right SFA Right leg angiogram possible embolectomy cancelled for NSVT Can be done nonurgently when stable, follow up vascular surgery Pseudothrombocytopenia Due to clumping Off argatroban, on heparin gtt for atrial fibrillation and possible RLE emboli HIT work up negative Atrial fibrillation/Episodes of NSVT History of CAD s/p CABG, bioprosthetic valve replacement, HTN/HLD, cocaine abuse Echo (02/27) shows an aortic bioprostethic valve, LVEF is 60%. Cardiology consulted Several runs of NSVT, likely ischemic, troponins ruled out for ACS Continue amiodarone gtt and metoprolol 5mg IV q6h Continue aotorvastatin Left nondisplaced transcondylear fracture, splinted Noted on admission x-ray, likely secondary to seizure/fall at home Continue immobilization Orthopedics recommended nonoperative management at this time Should be reassessed as clinical condition improves Dilaudid for analgesia Acute Kidney Injury, currently resolved BUN/Cr of 35/1.6 on admission BUN 14, Creatinine 1.0 Off IVFs, accuchecks 80-130 40mg IV lasix x 1, ~20L positive fluid balance Strict I/O's, daily weights NPO, failed swallow evaluation, will reorder tomorrow as patient remains delirious DVT ppx-on IV heparin DNR/DNI Problem List: 1. Seizure 2. Ventricular ectopy 3. Status epilepticus 4. Respiratory failure Pain Ratin Pain Location: left arm Tomorrow's Labs & Rationales: cbc, icu Plan DVT/Prophylaxis: mechanical, pharmacological
--- NOTE | 2018-03-10 09:17 | PN- Vascular Surgery ---
Surgical Brief Attending Note Brief Attending Note: pt seen and examined. he is extubated but confused and does not answer questions appropriately. both of his feet are cool but he does have intact cap refill and biphasic pt signals bilaterally. he is currently on heparin gtt and amiodarone. I believe the right SFA occlusion is probably more chronic but would warrant an angiogram when he is stable. There is no urgency to this and can wait until he could be cleared by cardiology for any procedure. in regards to the poorly opacified palmar arch on left arm CTA. his left hand is warm and well perfused. the lack of opacification is likely a timing issue from the contrast in the CTA as physically there are no signs of ischemia. please call me with further questions.
[2018-03-10 12:00] VITALS: BP 150/90
[2018-03-10 13:32] LABS: PTT 53 SEC (25-37)
[2018-03-10 16:00] VITALS: BP 148/102
--- NOTE | 2018-03-10 16:45 | PN- Orthopedic ---
Subjective Subjective: The patient is still in the ICU Assessment/Plan Assessment/Plan The patient remains a poor surgical candidate for left elbow surgery. He has been in the ICU since his hospitalization. The left upper extremity has been immobilized in a posterior fiberglass splint. Repeat x-rays today (03/10/2018) show no appreciable change in the fracture reduction, alignment, and length at the patient's left transverse supracondylar distal humerus fracture x-rays from 02/26/2018. Given the prior arthrosis and spur formation and postoperative changes from prior injury and surgery on the elbow it is difficult for me to determine whether or not there is any early radiographic fracture healing activity at his current supracondylar distal humerus fracture site. Plan: Given the overall picture of the patient's medical condition and mental status as well as the stability of the fracture over the past 12 days I recommend continued conservative nonoperative management with continued splinting. I would not recommend motion therapy for the left elbow. No use of the left elbow for pushing or pulling or lifting though given the patient's mental status there may be some compliance issues. I would recommend repeat x- rays of the patient's left elbow in his splint again in about 1 week to check fracture reduction and potential healing activity with some additional time. Core Measures Venous Thromboembolism VTE Risk Factors Age>40 No Mechanical VTE Prophylaxis d/t N/A MechProphylax Ordered No VTE Pharm Prophylaxis d/t NA PharmProphylax ordered
--- NOTE | 2018-03-10 17:13 | RADIOLOGY REPORT ---
EXAMINATION: XR ELBOW, LEFT CLINICAL INFORMATION: Left humeral fracture COMPARISON: 02/26/2018 TECHNIQUE: AP, lateral, and oblique views of the left elbow. FINDINGS: Again seen is a subacute transverse transcondylar humeral fracture with approximately one third shafts width anterior displacement. The degree of displacement is similar to the prior study. This is seen superimposed on chronic degenerative changes including joint space narrowing and intra-articular bodies. Again noted is prior resection of the radial head. Persistent small joint effusion with decreased soft tissue swelling. IMPRESSION: Similar appearance of now subacute transverse transcondylar humeral fracture with anterior displacement. Persistent small joint effusion with decreased soft tissue swelling. Persistent chronic postoperative and/or degenerative changes as described above.
[2018-03-10 21:17] LABS: PTT 42 SEC (25-37)
[2018-03-11] VITALS: BP 130/86
[2018-03-11 03:28] LABS: ABSOLUTE BASOPHIL COUNT 0 /CUMM (0.0-0.2); ABSOLUTE EOSINOPHIL COUNT 0 /CUMM (0.0-0.7); ABSOLUTE GRANULOCYTE CT 7.6 /CUMM (1.4-6.5); ABSOLUTE LYMPH COUNT 1.6 /CUMM (1.2-3.4); ABSOLUTE MONOCYTE COUNT 2.8 /CUMM (0.10-0.60); BASOPHIL % 0.2 % (0.0-2.0); EOSINOPHIL % 0 % (0-5); GRANULOCYTE % 63.1 % (42.2-75.2); HEMATOCRIT 32.9 % (42-52); MEAN CORPUSCULAR HGB 31.2 PG (27.0-31.0); MEAN CORPUSCULAR HGB CONC 34.7 G/DL (33.0-37.0); MEAN CORPUSCULAR VOLUME 89.9 FL (80.0-94.0); MEAN PLATELET VOLUME 10.8 FL (7.4-10.4); PLATELET COUNT 213 /CUMM (130-400); RBC DISTRIBUTION WIDTH 14.6 % (11.5-14.5); RED BLOOD CELL CT 3.66 /CUMM (4.70-6.10)
[2018-03-11 05:36] LABS: PTT > 120 SEC (25-37)
[2018-03-11 08:00] VITALS: BP 150/88
--- NOTE | 2018-03-11 10:05 | PN- Resident CRCU ---
Subjective HPI/CRCU Issues: #Chronic Seizure Disorder, p/b status epilepticus, on keppra and valproate #Acute Resp Distress s/p extubation 03/08 #R SFA Occlusion #Afib/ episodes of NSVT #L nondisplaced transcondylear fracture, splinted #Nasal Bone and Septum Fracture #Factitious thrombocytopenia #PEPPER, resolved 24 Hour Events: Pt seen and examined this am. He seems less agitated this morning, though stil lethargic and not responding to commands. R leg with improved color and warmth. No telemetry events noted overnight. Objective Vital Signs & I&O Last 8 Hrs of Vitals and I&O: Intake & Output 03/11 1600 Intake Total Output Total Balance Patient 216 lb Weight Weight Bed scale Measurement Method Exam General Appearance: mildy agitated male in moderate distress with noted dyspnea Head: evidence of injury, ecchymosis Neck: normal inspection, supple Respiratory: decreased breath sounds, crackles, rhonchi Cardiovascular: irregularly irregular Gastrointestinal: normal bowel sounds, soft, non-tender, no organomegaly Extremities: R foot with improved warmth and color this am. capillary refill >2s Cranial Nerves: not asssessed, pt delirious and at times lethargic Current Medications: Current Medications Sig/Louise Start time Last Medication Dose Route Stop Time Status Admin Amiodarone HCl/ 360 MG Q12H 03/07 0830 AC 03/11 Dextrose IV 0542 N/A 1 UNIT Atorvastatin Calcium 40 MG 1700 03/01 1700 AC 03/07 PO 1800 Diphenhydramine HCl 50 MG Q8P PRN 03/09 1415 AC IM Docusate Sodium 100 MG DAILY NEEDED 03/02 0930 AC 03/02 PO 1057 Haloperidol 1 MG Q8P PRN 03/09 1415 AC IM Heparin Sodium 7,500 UNIT ONCE ONE 03/10 2315 DC (Porcine) IV 03/10 2316 Heparin Sodium 4,000 UNIT ONCE ONE 03/10 1415 DC 03/10 (Porcine) IV 03/10 1416 1417 Heparin Sodium 5,000 UNIT .STK-MED ONE 03/10 1409 DC (Porcine) IV 03/10 1410 Heparin Sodium 25,000 UNIT Q24H 03/05 1615 AC 03/10 (Porcine) IV 0703 Sodium Chloride 500 ML Hydromorphone HCl 2 MG ONCE PRN 03/08 0300 AC 03/08 IV 0309 Levetiracetam 1,000 MG Q12 03/09 2100 AC 03/11 N/A 1 UNIT IV 0914 Lorazepam 1 MG Q8 03/09 1516 AC 03/11 IV 0500 Lorazepam 2 MG Q4 PRN 03/08 0200 AC 03/08 IV 0725 Metoprolol Tartrate 5 MG Q6 03/08 1200 AC 03/11 IV 1220 Pantoprazole Sodium 40 MG DAILY 03/08 1045 AC 03/11 IV 0914 Polyethylene Glycol 17 GM DAILY PRN 03/02 0930 AC 03/03 PO 0839 Potassium Chloride 10 MEQ Q1H 03/11 1230 AC 03/11 IV 03/11 1331 1221 Potassium Chloride 10 MEQ Q1H 03/10 1300 DC 03/10 IV 03/10 1401 1519 Senna 187 MG AT BEDTIME PRN 03/02 0930 AC 03/02 PO 1057 Valproate Sodium 1,000 MG Q12H 03/08 1200 AC 03/11 Sodium Chloride 100 ML IV 0115 CXR Findings: SERVICE DATE: 03/11/181013 EXAM TYPE: RAD - XRY-PORTABLE CHEST XRAY EXAMINATION: XR PORTABLE CHEST CLINICAL INFORMATION: Recent extubation. Leukocytosis. COMPARISON: Chest 03/09/2018.. TECHNIQUE: Portable frontal view of the chest was obtained. FINDINGS: There is cardiomegaly with prominent pulmonary vascularity which has significantly improved with minimal residual changes if any in the right lung base compared to previous chest exam. The lungs are hypoexpanded but clear. IMPRESSION: No change in cardiomegaly. Significant improvement in the CHF with some residual changes in the right lung base. Impression/Plan Impression/Problem List Impression: 67 y/o M with PMH of chronic seizure disorder on valproate, CAD s/p CABG and bovine aortic valve replacement in 2013, Hodgkins lymphoma, HTN and HLD that was brought to the ED after he was found to be unresponsive. The patient was at his baseline on 02/25. On the ED the patient's respiratory drive was poor and he was intubated. The EKG on the ED showed transient A-fib that converted to SR and reconverted to Afib. He was admitted to the ICU for management of his acute seizure episode requiring intubation, now s/p extubation. Of note on 02/22, patient had a work related accident where he fell and landed on his face - CXR shows nasal bones and septum fracture. He also presented with a L nondisplaced supracondylear fracture. IMPRESSIONS #Chronic Seizure Disorder, p/b status epilepticus, on keppra and valproate #Acute Resp Distress s/p extubation 03/08 #R SFA Occlusion #Afib/ episodes of NSVT #L nondisplaced transcondylear fracture, splinted #Nasal Bone and Septum Fracture #Factitious thrombocytopenia #PEPPER, resolved #Chronic Seizure Disorder, p/b status epilepticus Pt has a long standing history of seizure disorder, compliant on his valproic acid as evidenced by records and laboratory studies (Urine Valproate in therapeutic range). Urine toxicology showed evidence of cocaine use, could have played a part into this latest seizure episode. Head CT (02/26) shows a chronic arachnoid cyst on the left anterior middle cranial fossa with some slight interval increase in size. He does have a history of ETOH use and while his serum alcohol was not impressive, a withdrawal induced seizure could still have been the culprit. Neurology was consulted and EEG showed no seizure activity, a follow up EEG showed diffuse cerebral dysfx like the first one. He is now extubated, though still remains restless, acutely delirious. IV keppra reduced from 1g q8 to q12. -Pt on keppra and valproate IV -Risperidone, gabapentin PO once pt is able #Acute Resp Distress, s/p extubation On arrival, pt had poor inspiratory effort and there was concern for worsening status, so he was intubated. Aspiration PNA was likely, with a positive resp culture that grew pansensitive E. coli and Staph, so he was put on Unasyn for 7 days, now completed. Leukocytosis is noted, though he remains afebrile. Will continue to monitor. He was extubated on 03/08, swallow evaluation pending. CXR does show improvement compared to prior. -Off abx -IV Unasyn dc'd (DAY #7- Complete) -Cultures - no growth as of now -Swallow eval when able #R SFA Occlusion Pt has been on a-fib since admission to the ICU - he was off systemic anticoagulation due to his multiple fractures in the nasal area and L nondisplaced transcondylear fracture. An arterial doppler U/S showed a R SFA occlusion. He has now been starting on heparin drip as benefits>risks. Vascular surgery was consulted and a CTA done on 03/01 that showed segmental occlusions of the distal right SFA. Latest doppler 03/04 showed interval worsening - vascular plan for R leg angiogram p/b embolectomy. Due to episodes of nonsustained monomorphic Vtach, surgery was cancelled pending cardiology's clearance. -R leg angiogram -f/u vasc surgery recommendation #Factitious thrombocytopenia, resolved Pt's low PLT were due to clumping. PF4/ANEESH ordered and sent out, he was started on agatroban drip; they came back negative. He is off argatroban and back on heparin. -Off argatroban, on heparin gtt -HIT work up negative #Afib / Episodes of NSVT Pt currently on afib. Extensive cardiac history of CAD s/p CABG, bioprosthetic valve replacement, HTN/HLD with a positive urine tox for cocaine. Echo (02/27) shows an aortic bioprostethic valve with no significant insufficiency though it was not visualized optimally. LVEF is 60%. Cardiology is following. Had a nonsustained wide complex tachycardia during the night 03/02. 11-beat run of vtach noted on 03/03, and a 21 beat run on 03/07, STAT ekg/trop negative for ischemic changes. He is on amiodarone drip. -Metoprolol 5mg Iv q6 -Amiodarone drip #L nondisplaced transcondylear fracture, splinted On arrival, a L nondisplaced transcondylear fracture was noted. Pt is currently splinted. Orthopedics were consulted, and as per their recommendation, due to the patient's current status, a nonoperative management is recommended, though can be reconsidered on improvement of his status. Ice packs can be applied around the elbow. As per vascular surgery's recommendation, a CTA of L arm was ordered, showing possible occlusions within the deep and superficial arches of the hand. -Splint to remain -Ice packs around the elbow if needed DNR/DNI DVT PPX: MECH, PHARM NPO, pending swallow eval Problem List: 1. Alcohol dependence with withdrawal 2. Status epilepticus Pain Ratin (not assessed, pt delirious) Tomorrow's Labs & Rationales: cbc\icu lab bundle Plan DVT/Prophylaxis: mechanical, pharmacological
--- NOTE | 2018-03-11 10:30 | PN- CRCU ---
Subjective HPI/Critical Care Issues: Patient remains lethargic although appears more tachypneic he remains hemodynamically stable and well oxygenated on 2 L Objective Current Medications: Current Medications Sig/Louise Start time Last Medication Dose Route Stop Time Status Admin Amiodarone HCl/ 360 MG Q12H 03/07 0830 AC 03/11 Dextrose IV 0542 N/A 1 UNIT Atorvastatin Calcium 40 MG 1700 03/01 1700 AC 03/07 PO 1800 Diphenhydramine HCl 50 MG Q8P PRN 03/09 1415 AC IM Docusate Sodium 100 MG DAILY NEEDED 03/02 0930 AC 03/02 PO 1057 Furosemide 40 MG ONCE ONE 03/10 1200 DC 03/10 IV 03/10 1201 1207 Haloperidol 1 MG Q8P PRN 03/09 1415 AC IM Heparin Sodium 7,500 UNIT ONCE ONE 03/10 2315 DC (Porcine) IV 03/10 2316 Heparin Sodium 4,000 UNIT ONCE ONE 03/10 1415 DC 03/10 (Porcine) IV 03/10 1416 1417 Heparin Sodium 5,000 UNIT .STK-MED ONE 03/10 1409 DC (Porcine) IV 03/10 1410 Heparin Sodium 25,000 UNIT Q24H 03/05 1615 AC 03/10 (Porcine) IV 0703 Sodium Chloride 500 ML Hydromorphone HCl 2 MG ONCE PRN 03/08 0300 AC 03/08 IV 0309 Levetiracetam 1,000 MG Q12 03/09 2100 AC 03/11 N/A 1 UNIT IV 0914 Lorazepam 1 MG Q8 03/09 1516 AC 03/11 IV 0500 Lorazepam 2 MG Q4 PRN 03/08 0200 AC 03/08 IV 0725 Metoprolol Tartrate 5 MG Q6 03/08 1200 AC 03/11 IV 0549 Pantoprazole Sodium 40 MG DAILY 03/08 1045 AC 03/11 IV 0914 Polyethylene Glycol 17 GM DAILY PRN 03/02 0930 AC 03/03 PO 0839 Potassium Chloride 10 MEQ Q1H 03/10 1300 DC 03/10 IV 03/10 1401 1519 Potassium Chloride 10 MEQ Q1H 03/10 1045 DC 03/10 IV 03/10 1146 1320 Senna 187 MG AT BEDTIME PRN 03/02 0930 AC 03/02 PO 1057 Valproate Sodium 1,000 MG Q12H 03/08 1200 AC 03/11 Sodium Chloride 100 ML IV 0115 Vital Signs & I&O Last 24 Hrs of Vitals and I&O: Vital Signs Date Time Temp Pulse Resp B/P B/P Pulse O2 O2 Flow FiO2 Mean Ox Delivery Rate 03/11 0800 97.7 85 45 150/88 97 Nasal 2.0L Cannula 03/11 0800 97 Nasal 2.0L Cannula 03/11 0549 97.6 96 24 160/88 03/11 0542 97.6 89 24 160/88 03/11 0400 98 Nasal 2.0L Cannula 03/11 0116 97.4 82 24 130/86 03/11 0000 97.4 79 20 130/86 96 Nasal 2.0L Cannula 03/11 0000 96 Nasal 2.0L Cannula 03/10 2000 93 Nasal 2.0L Cannula 03/10 1814 83 149/92 03/10 1600 98.6 83 36 148/102 94 Nasal 2.0L Cannula 03/10 1600 94 Nasal 2.0L Cannula 03/10 1200 98 Nasal 2.0L Cannula 03/10 1200 97.5 76 41 150/90 98 Nasal 2.0L Cannula 03/10 1146 90 150/109 Intake & Output 03/11 1600 03/11 0800 03/11 0000 Intake Total 474 533 Output Total 500 1050 Balance -26 -517 Intake, IV 474 533 Intake, Oral 0 Number 2 2 Bowel Movements Output, Stool 50 Output, Urine 500 1000 Patient 216 lb Weight Weight Bed scale Measurement Method Patient appears to Respiratory rate is elevated oxygen saturation 2 L 95% the appears to have upper airway rhoni similar chest shows scattered rhonchi cardiac exam shows regular rhythm abdomen is soft Impression/Plan Impression/Plan Impression/Plan: 67-year-old gentleman with toxic metabolic encephalopathy appears more congested and This morning. Concern is over possible aspiration Recommendations: assess arterial blood gases and. Chest x-ray. Begin antibiotics for evidence of pneumonia on chest x-ray Aspiration precautions. Aggressive pulmonary toilet.
--- NOTE | 2018-03-11 10:54 | RADIOLOGY REPORT ---
EXAMINATION: XR PORTABLE CHEST CLINICAL INFORMATION: Recent extubation. Leukocytosis. COMPARISON: Chest 03/09/2018.. TECHNIQUE: Portable frontal view of the chest was obtained. FINDINGS: There is cardiomegaly with prominent pulmonary vascularity which has significantly improved with minimal residual changes if any in the right lung base compared to previous chest exam. The lungs are hypoexpanded but clear. IMPRESSION: No change in cardiomegaly. Significant improvement in the CHF with some residual changes in the right lung base.
[2018-03-11 12:00] VITALS: BP 146/96
[2018-03-11 14:13] LABS: PTT 56 SEC (25-37)
[2018-03-11 16:00] VITALS: BP 128/76
[2018-03-11 22:37] LABS: PTT 40 SEC (25-37)
[2018-03-12] VITALS: BP 130/100
[2018-03-12 05:37] LABS: ABSOLUTE BASOPHIL COUNT 0 /CUMM (0.0-0.2); ABSOLUTE EOSINOPHIL COUNT 0 /CUMM (0.0-0.7); ABSOLUTE GRANULOCYTE CT 7.8 /CUMM (1.4-6.5); ABSOLUTE LYMPH COUNT 1.5 /CUMM (1.2-3.4); ABSOLUTE MONOCYTE COUNT 2.6 /CUMM (0.10-0.60); BASOPHIL % 0.2 % (0.0-2.0); EOSINOPHIL % 0.1 % (0-5); GRANULOCYTE % 65.2 % (42.2-75.2); HEMATOCRIT 32.2 % (42-52); MEAN CORPUSCULAR HGB 31.1 PG (27.0-31.0); MEAN CORPUSCULAR HGB CONC 34.6 G/DL (33.0-37.0); MEAN CORPUSCULAR VOLUME 89.9 FL (80.0-94.0); PLATELET COUNT 214 /CUMM (130-400); RBC DISTRIBUTION WIDTH 14.5 % (11.5-14.5); RED BLOOD CELL CT 3.58 /CUMM (4.70-6.10)
[2018-03-12 06:12] LABS: PTT > 120 SEC (25-37)
[2018-03-12 08:00] VITALS: BP 160/98
--- NOTE | 2018-03-12 08:06 | PN- Resident CRCU ---
Gonzalez Yoo 03/12/18 0806: Subjective HPI/CRCU Issues: #Chronic Seizure Disorder, p/b status epilepticus, on keppra and valproate, now delirous #Acute Resp Distress s/p extubation 03/08, #R SFA Occlusion #Afib/ episodes of NSVT #L nondisplaced transcondylear fracture, splinted #Nasal Bone and Septum Fracture #Factitious thrombocytopenia #PEPPER, resolved 24 Hour Events: Pt seen and examined this am. He continues to be restless, though he is not longer restrained. He received 3 mg ativan overnight, did have a bowel movement this am. He wakes up when called, though does not follow commands. He continues to mumble unintelligible words. Objective Vital Signs & I&O Last 8 Hrs of Vitals and I&O: Laboratory Tests 03/12/18 0500: Anion Gap 11, Estimated GFR > 60, Glucose 87, Calcium 8.2 L, Phosphorus 3.4, Magnesium 1.9, Total Bilirubin 0.7, AST 39, ALT 30, Albumin 2.7 L, APTT > 120 * H, CBC w Diff MAN DIFF ORDERED, RBC 3.58 L, MCV 89.9, MCH 31.1 H, MCHC 34.6, RDW 14.5, MPV 11.0 H, Gran % 65.2, Lymphocytes % 12.6 L, Monocytes % 21.9 H, Eosinophils % 0.1, Basophils % 0.2, Absolute Granulocytes 7.8 H, Segmented Neutrophils 75, Absolute Lymphocytes 1.5, Lymphocytes 12 L, Monocytes 13 H, Absolute Monocytes 2.6 H, Absolute Eosinophils 0, Absolute Basophils 0, Platelet Estimate ADEQUATE, Polychromasia 1+, Ovalocytes FEW, Fld Total RBCs Counted 100 03/11/18 2150: APTT 40 H 03/11/18 1312: pH 7.45, pCO2 36, pO2 84, HCO3 25, ABG O2 Sat (Measured) 95.0 L, Carboxyhemoglobin 0.3 L, O2 Concentration % 2L, O2 Delivery Method NC, Phlebotomy Draw Site RIGHT BRACHIAL 03/11/18 1234: APTT 56 H Intake & Output 03/12 1600 03/12 0800 03/12 0000 Intake Total 475 549 Output Total 235 480 Balance 240 69 Intake, IV 475 549 Number 2 1 Bowel Movements Output, Urine 235 480 Vital Signs Date Time Temp Pulse Resp B/P B/P Pulse O2 O2 Flow FiO2 Mean Ox Delivery Rate 03/12 0551 81 26 160/103 03/12 0400 95 Nasal 2.0L Cannula 03/12 0026 85 30 166/105 03/12 0000 96 Nasal 2.0L Cannula 03/12 0000 96.9 85 26 130/100 96 Nasal 2.0L Cannula 03/11 2153 80 156/108 03/11 2000 Nasal 2.0L Cannula 03/11 1714 86 157/97 03/11 1600 Nasal 2.0L Cannula 03/11 1600 97.6 82 30 128/76 97 Nasal 2.0L Cannula 03/11 1220 89 153/102 03/11 1200 100 Nasal 2.0L Cannula 03/11 1200 97.7 90 37 146/96 100 Nasal 2.0L Cannula Exam General Appearance: awake, moderate distress Head: evidence of injury, ecchymosis Neck: normal inspection, supple Respiratory: normal breath sounds, chest non-tender, transmitted vesicular sounds Cardiovascular: irregularly irregular Gastrointestinal: normal bowel sounds, soft, non-tender, no organomegaly Extremities: normal inspection, Cool R lower extremity to touch. Dorsalis pedis on the R not heard on doppler. L remains warm with pulses on doppler. Current Medications: Current Medications Sig/Louise Start time Last Medication Dose Route Stop Time Status Admin Acetaminophen 1,000 MG Q6P PRN 03/11 1415 AC N/A 1 UNIT IV Amiodarone HCl/ 360 MG Q12H 03/07 0830 AC 03/11 Dextrose IV 2153 N/A 1 UNIT Atorvastatin Calcium 40 MG 1700 03/01 1700 AC 03/07 PO 1800 Diphenhydramine HCl 50 MG Q8P PRN 03/09 1415 AC IM Docusate Sodium 100 MG DAILY NEEDED 03/02 0930 AC 03/02 PO 1057 Haloperidol 1 MG Q8P PRN 03/09 1415 AC IM Heparin Sodium 7,342 UNIT ONCE ONE 03/11 2330 DC 03/11 (Porcine) IV 03/11 233 2245 Heparin Sodium 4,000 UNIT ONCE ONE 03/11 1430 DC 03/11 (Porcine) IV 03/11 1431 1422 Heparin Sodium 5,000 UNIT .STK-MED ONE 03/11 1419 DC (Porcine) IV 03/11 1420 Heparin Sodium 25,000 UNIT Q24H 03/05 1615 AC 03/11 (Porcine) IV 1427 Sodium Chloride 500 ML Hydromorphone HCl 2 MG ONCE PRN 03/08 0300 AC 03/08 IV 0309 Levetiracetam 1,000 MG Q12 03/09 2100 AC 03/11 N/A 1 UNIT IV 2105 Lorazepam 1 MG Q8 03/09 1516 AC 03/12 IV 0551 Lorazepam 2 MG Q4 PRN 03/08 0200 AC 03/12 IV 0220 Metoprolol Tartrate 5 MG Q6 03/08 1200 AC 03/12 IV 0551 Pantoprazole Sodium 40 MG DAILY 03/08 1045 AC 03/11 IV 0914 Polyethylene Glycol 17 GM DAILY PRN 03/02 0930 AC 03/03 PO 0839 Potassium Chloride 10 MEQ Q1H 03/12 0730 DC 03/12 IV 03/12 0831 0823 Potassium Chloride 10 MEQ Q1H 03/11 1230 DC 03/11 IV 03/11 1331 1418 Senna 187 MG AT BEDTIME PRN 03/02 0930 AC 03/02 PO 1057 Valproate Sodium 1,000 MG Q12H 03/08 1200 AC 03/12 Sodium Chloride 100 ML IV 0029 CXR Findings: SERVICE DATE: 03/11/181013 EXAM TYPE: RAD - XRY-PORTABLE CHEST XRAY EXAMINATION: XR PORTABLE CHEST CLINICAL INFORMATION: Recent extubation. Leukocytosis. COMPARISON: Chest 03/09/2018.. TECHNIQUE: Portable frontal view of the chest was obtained. FINDINGS: There is cardiomegaly with prominent pulmonary vascularity which has significantly improved with minimal residual changes if any in the right lung base compared to previous chest exam. The lungs are hypoexpanded but clear. IMPRESSION: No change in cardiomegaly. Significant improvement in the CHF with some residual changes in the right lung base. Impression/Plan Impression/Problem List Impression: 67 y/o M with PMH of chronic seizure disorder on valproate, CAD s/p CABG and bovine aortic valve replacement in 2013, Hodgkins lymphoma, HTN and HLD that was brought to the ED after he was found to be unresponsive. The patient was at his baseline on 02/25. On the ED the patient's respiratory drive was poor and he was intubated. The EKG on the ED showed transient A-fib that converted to SR and reconverted to Afib. He was admitted to the ICU for management of his acute seizure episode requiring intubation, now s/p extubation. Of note on 02/22, patient had a work related accident where he fell and landed on his face - CXR shows nasal bones and septum fracture. He also presented with a L nondisplaced supracondylear fracture. IMPRESSIONS #Chronic Seizure Disorder, p/b status epilepticus, on keppra and valproate, delirious #Acute Resp Distress s/p extubation 03/08 #R SFA Occlusion #Afib/ episodes of NSVT #L nondisplaced transcondylear fracture, splinted #Nasal Bone and Septum Fracture #Factitious thrombocytopenia #PEPPER, resolved #Chronic Seizure Disorder, p/b status epilepticus, delirious Pt has a long standing history of seizure disorder, compliant on his valproic acid as evidenced by records and laboratory studies (Urine Valproate in therapeutic range). Urine toxicology showed evidence of cocaine use, could have played a part into this latest seizure episode. Head CT (02/26) shows a chronic arachnoid cyst on the left anterior middle cranial fossa with some slight interval increase in size. Serial EEGs have showed no seizure activity and diffuse cerebral dysfx. He is extubated, though still remains restless, acutely delirious. IV keppra reduced from 1g q8 to q12. -Pt on keppra and valproate IV -Risperidone, gabapentin PO once pt is able #Acute Resp Distress, s/p extubation On arrival, pt had poor inspiratory effort and there was concern for worsening status, so he was intubated. Aspiration PNA was likely, with a positive resp culture that grew pansensitive E. coli and Staph, so he was put on Unasyn for 7 days, now completed. Leukocytosis is noted, though he remains afebrile. Will continue to monitor. He was extubated on 03/08, swallow evaluation pending. CXR does show improvement compared to prior. -Off abx -IV Unasyn dc'd (DAY #7- Complete) -Cultures - no growth as of now -Swallow eval when able #R SFA Occlusion Pt has been on a-fib since admission to the ICU - he was off systemic anticoagulation due to his multiple fractures in the nasal area and L nondisplaced transcondylear fracture. An arterial doppler U/S showed a R SFA occlusion. He is on hep gtt as benefits>risks. Vascular surgery was consulted and a CTA done on 03/01 that showed segmental occlusions of the distal right SFA. Latest doppler 03/04 showed interval worsening - vascular plan for R leg angiogram p/b embolectomy. -R leg angiogram in the am -f/u vas surgery recommendation #Factitious thrombocytopenia, resolved Pt's low PLT were due to clumping. PF4/ANEESH ordered and sent out, he was started on agatroban drip; they came back negative. He is off argatroban and back on heparin gtt. -Off argatroban, on heparin gtt -HIT work up negative #Afib / Episodes of NSVT Pt currently on afib. Extensive cardiac history of CAD s/p CABG, bioprosthetic valve replacement, HTN/HLD with a positive urine tox for cocaine. Echo (02/27) shows an aortic bioprostethic valve with no significant insufficiency though it was not visualized optimally. LVEF is 60%. Cardiology is following. Had a nonsustained wide complex tachycardia during the night 03/02. 11-beat run of vtach noted on 03/03, and a 21 beat run on 03/07, STAT ekg/trop negative for ischemic changes. No more Vtach on tele noted; he is off amiodarone drip. -Metoprolol 5mg Iv q6 - Off Amiodarone drip #L nondisplaced transcondylear fracture, splinted On arrival, a L nondisplaced transcondylear fracture was noted. Pt is currently splinted. Orthopedics were consulted, and as per their recommendation, due to the patient's current status, a nonoperative management is recommended, though can be reconsidered on improvement of his status. Ice packs can be applied around the elbow. As per vascular surgery's recommendation, a CTA of L arm was ordered, showing possible occlusions within the deep and superficial arches of the hand; though pulses are palpable on the L arm, occlusions might have been artifacts on the study. -Splint to remain -Ice packs around the elbow if needed DNR/DNI DVT PPX: MECH, PHARM NPO, pending swallow eval Problem List: 1. Status epilepticus 2. Alcohol dependence with withdrawal Pain Ratin (not assessed, pt delirious) Tomorrow's Labs & Rationales: cbc, icu lab bundle Plan DVT/Prophylaxis: mechanical, pharmacological Debbie ANDERSON,[facility] 03/12/18 1005: Attending MD Review Statement Attending Sign Off Attending Cosign Statement: I have: examined this patient, reviewed avalbl EMR data, personally reviewd images, discussd w/resident/PA/ASSIGNMENT AGENT, discussed mgmt plan w/jeri, discussed mgmt plan w/CM, discussed mgmt plan w/pt, agreed w/resident/PA/ASSIGNMENT AGENT, amended to note. Other Findings: Seen and examined independently Full note as above [id number],Off restraints and on nasal cannula and sleepy Eomi Chest clear cvs aure, afib abd soft No edema Fracture left Ue Pupils small Does open his eyes on command does squeeze my hand. Does complain of pain and wishes to eat This is a 67-year-old gentleman with history of hypertension, hyperlipidemia, CABG, previous bovine aortic valve replacement, previous history of Hodgkin's lymphoma in the late with previous chemoradiation therapy leading to significant neuropathy, significant medical marijuana usage, alcohol use on and off, multiple surgeries and chronic pain, previous seizure disorder started in 2014 and since then followed by [facility] seizure clinic (compliant) here with encephelopathy multifactorial (not having any seizures) * Sig encephelopathy - Admitted with Witnessed seizure activity and a fall (EEG no further seizures and rapid improvement of seizure on keppra and valproic acid ). Patient does have a large arachnoid cyst in his left temporal area with mass effect to the underlying temporal area (appears stable since 2014), Pt with previous history of sig etoh use, marijuana use and now with urine tox positive for cocaine and seizure from cocaine vs withdrawal and other causes including cocaine induced service architect injury vs small vessel cerebral ishemia. 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 PAfib since admission and anticoag started on 03/01, as the clotting risk out weighs the bleeding risks at this time (anticoag held till then due to sig bleeding risk, ie unstable fracture, altered mental status, recent fall, fracture nasal, recurrent seizures upon admission and hematoma and swelling of the left upper arm from displaced humerus fracture) (cta left ue shows poor flow in the palm) - surg to be held now due to vt etc * Stable Thrombocytopenia - HIT neg now back on heparin * Significant alcohol use by history with probable dts, Marijuana, sig cocaine in the urine upon admission * Sig Heart disease with previous CABG and aortic valve replacement with bioprosthetic valve with previous arrythmia, now in pafib * Previous history of nephrolithiasis, now with pepper (improving) * Now sig delirium on and off off ativan * Nasal fracture and displaced transcondylar fracture of distal left humerus, conservative rx per ortho * 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 As he is improving will continue maximum conservative therapy
--- NOTE | 2018-03-12 12:41 | PN- Cardiology ---
Subjective Subjective: Patient seen at bedside. Patient remains encephalopathic, not responding to verbal stimuli Objective Vital Signs and I&Os Vital Signs Date Time Temp Pulse Resp B/P B/P Pulse O2 O2 Flow FiO2 Mean Ox Delivery Rate 03/12 1134 85 161/101 03/12 0947 86 159/102 03/12 0800 97 Nasal 2.0L Cannula 03/12 0800 97.6 83 26 160/98 97 Nasal 2.0L Cannula 03/12 0551 81 26 160/103 03/12 0400 95 Nasal 2.0L Cannula 03/12 0026 85 30 166/105 03/12 0000 96 Nasal 2.0L Cannula 03/12 0000 96.9 85 26 130/100 96 Nasal 2.0L Cannula 03/11 2153 80 156/108 03/11 2000 Nasal 2.0L Cannula 03/11 1714 86 157/97 03/11 1600 Nasal 2.0L Cannula 03/11 1600 97.6 82 30 128/76 97 Nasal 2.0L Cannula 03/11 1220 89 153/102 Intake & Output 03/12 1600 03/12 0800 03/12 0000 03/11 1600 03/11 0800 03/11 0000 Intake Total 475 549 959.1 474 533 Output Total 235 480 915 614 5802 Balance 240 69 359.1 -26 -517 Intake, IV 475 549 959.1 474 533 Intake, Oral 0 Number 2 1 2 2 Bowel Movements Output, Stool 50 Output, Urine 235 480 277 518 3337 Patient 95.765 kg 97.976 kg Weight Weight Bed scale Bed scale Measurement Method Physical Exam: General: Confused HEENT: NCAT, NO JVD Heart: s1s2, irregular rhythm, no MRG Lungs: Coarse breath sounds bilaterally Abd: soft, nt Ext: trace peripheral edema Current Medications: Current Medications Sig/Louise Start time Last Medication Dose Route Stop Time Status Admin Acetaminophen 1,000 MG Q6P PRN 03/11 1415 AC N/A 1 UNIT IV Amiodarone HCl/ 360 MG Q12H 03/07 0830 DC 03/12 Dextrose IV 0947 N/A 1 UNIT Atorvastatin Calcium 40 MG 1700 03/01 1700 AC 03/07 PO 1800 Dextrose/Lactated 1,000 ML Q24 03/12 1053 AC 03/12 Ringer's IV 1134 Dextrose/Lactated 1,000 ML Q13H 03/12 1030 DC Ringer's IV Diphenhydramine HCl 50 MG Q8P PRN 03/09 1415 AC IM Docusate Sodium 100 MG DAILY NEEDED 03/02 930 AC 03/02 PO 1057 Haloperidol 1 MG Q8P PRN 03/09 1415 AC IM Heparin Sodium 7,342 UNIT ONCE ONE 03/11 2330 DC 03/11 (Porcine) IV 03/11 2331 2245 Heparin Sodium 4,000 UNIT ONCE ONE 03/11 1430 DC 03/11 (Porcine) IV 03/11 1431 1422 Heparin Sodium 5,000 UNIT .STK-MED ONE 03/11 1419 DC (Porcine) IV 03/11 1420 Heparin Sodium 25,000 UNIT Q24H 03/05 1615 AC 03/11 (Porcine) IV 1427 Sodium Chloride 500 ML Hydromorphone HCl 2 MG ONCE PRN 03/08 0300 AC 03/08 IV 0309 Levetiracetam 1,000 MG Q12 03/09 2100 AC 03/12 N/A 1 UNIT IV 0947 Lorazepam 1 MG Q8 03/09 1516 AC 03/12 IV 0551 Lorazepam 2 MG Q4 PRN 03/08 0200 AC 03/12 IV 0220 Metoprolol Tartrate 5 MG Q6 03/08 1200 AC 03/12 IV 1134 Pantoprazole Sodium 40 MG DAILY 03/08 1045 AC 03/12 IV 0947 Polyethylene Glycol 17 GM DAILY PRN 03/02 0930 AC 03/03 PO 0839 Potassium Chloride 10 MEQ Q1H 03/12 0730 DC 03/12 IV 03/12 0831 1026 Potassium Chloride 10 MEQ Q1H 03/11 1230 DC 03/11 IV 03/11 1331 1418 Senna 187 MG AT BEDTIME PRN 03/02 0930 AC 03/02 PO 1057 Valproate Sodium 1,000 MG Q12H 03/08 1200 AC 03/12 Sodium Chloride 100 ML IV 1134 Results Last 48 Hrs of Labs/Mics: Laboratory Tests 03/12/18 0500: Anion Gap 11, Estimated GFR > 60, Glucose 87, Calcium 8.2 L, Phosphorus 3.4, Magnesium 1.9, Total Bilirubin 0.7, AST 39, ALT 30, Albumin 2.7 L, APTT > 120 * H, CBC w Diff MAN DIFF ORDERED, RBC 3.58 L, MCV 89.9, MCH 31.1 H, MCHC 34.6, RDW 14.5, MPV 11.0 H, Gran % 65.2, Lymphocytes % 12.6 L, Monocytes % 21.9 H, Eosinophils % 0.1, Basophils % 0.2, Absolute Granulocytes 7.8 H, Segmented Neutrophils 75, Absolute Lymphocytes 1.5, Lymphocytes 12 L, Monocytes 13 H, Absolute Monocytes 2.6 H, Absolute Eosinophils 0, Absolute Basophils 0, Platelet Estimate ADEQUATE, Polychromasia 1+, Ovalocytes FEW, Fld Total RBCs Counted 100 03/11/18 2150: APTT 40 H 03/11/18 1312: pH 7.45, pCO2 36, pO2 84, HCO3 25, ABG O2 Sat (Measured) 95.0 L, Carboxyhemoglobin 0.3 L, O2 Concentration % 2L, O2 Delivery Method NC, Phlebotomy Draw Site RIGHT BRACHIAL 03/11/18 1234: APTT 56 H 03/11/18 0300: Anion Gap 15, Estimated GFR > 60, Glucose 89, Calcium 8.3 L, Phosphorus 3.8, Magnesium 2.1, Total Bilirubin 0.8, AST 40, ALT 28, Albumin 2.8 L, APTT > 120 * H, CBC w Diff MAN DIFF ORDERED, RBC 3.66 L, MCV 89.9, MCH 31.2 H, MCHC 34.7, RDW 14.6 H, MPV 10.8 H, Gran % 63.1, Lymphocytes % 13.5 L, Monocytes % 23.2 H, Eosinophils % 0, Basophils % 0.2, Absolute Granulocytes 7.6 H, Segmented Neutrophils 67, Band Neutrophils 1, Absolute Lymphocytes 1.6, Lymphocytes 15 L, Monocytes 17 H, Absolute Monocytes 2.8 H, Absolute Eosinophils 0, Absolute Basophils 0, Platelet Estimate ADEQUATE, Normocytic RBCs VERIFIED, Normochromic RBCs VERIFIED 03/10/182024: APTT 42 H Recent Imaging Studies: Telemetry: Personally reviewed, atrial fibrillation with occasional aberrantly conducted beat Assessment/Plan Assessment/Plan Assessment/Plan 1. Seizure disorder/ecephalopathy 2. Atrial fibrillation, was not on chronic AC due to seizure disorder with refractory polysubstance abuse 3. Coronary artery disease status post CABG 4. Bioprosthetic aortic valve 5. Nonsustained wide complex tachycardia 6. Peripheral vascular disease 7. 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 polysubstance abuse, including cocaine 9. Hypertension 10. Hyperlipidemia 11. ?thrombocytopenia; improved 12. PNA The patient remains confused, in soft restraints. Telemetry review shows continued atrial fibrillation but no recurrent ventricular tachycardia. In light of this amiodarone infusion can be discontinued. Continue with beta- boom. Continue with intravenous heparin. Continue telemetry? Yes
[2018-03-12 16:00] VITALS: BP 130/92
--- NOTE | 2018-03-12 19:01 | Transfer of Care Summary ---
Hospital Course Course Hospital Course: Mr. Hendricks is a 67 y/o M with PMH of chronic seizure disorder on valproate, CAD s/ p CABG and bovine aortic valve replacement in 2013, Hodgkins lymphoma, HTN and HLD that was brought to the ED after he was found to be unresponsive. The patient was at his baseline on 02/25. On the ED the patient's respiratory drive was poor and he was intubated. The EKG on the ED showed transient A-fib that converted to SR and reconverted to Afib, where he has remained the whole admission. He was admitted to the ICU for management of his acute seizure episode p/b status epilepticus. Of note on 02/22, patient had a work related accident where he fell and landed on his face - CXR shows nasal bones and septum fracture. He also presented with a L nondisplaced supracondylear fracture. He was intubated for 9 days, now s/p extubation - Blood and urine cultures were negative, but respiratory sputum did grow MSSA and E. coli, so he was treated with 7 days of Unasyn. Due to the patient's multiple fractures, he was not on anticoagulation; subsequently his R leg turned cool and pulses were faint. Vascular surgery was consulted, and a CTA showed R SFA occlusion with plans to do angiogram in the OR with p/b embolectomy. Surgery was postponed due to patient developing multiple runs of NSVT that prompted the start of an amiodarone drip that was dc'd on 03/12. Pt continues to be agitated and restless, getting PRN ativan when needed. He does wake up but is not responsive to commands. Assessment/Plan: 67 y/o M with PMH of chronic seizure disorder on valproate, CAD s/p CABG and bovine aortic valve replacement in 2013, Hodgkins lymphoma, HTN and HLD that was brought to the ED after he was found to be unresponsive. The patient was at his baseline on 02/25. On the ED the patient's respiratory drive was poor and he was intubated. The EKG on the ED showed transient A-fib that converted to SR and reconverted to Afib. He was admitted to the ICU for management of his acute seizure episode requiring intubation, now s/p extubation. Of note on 02/22, patient had a work related accident where he fell and landed on his face - CXR shows nasal bones and septum fracture. He also presented with a L nondisplaced supracondylear fracture. IMPRESSIONS #Chronic Seizure Disorder, p/b status epilepticus, on keppra and valproate, delirious #Acute Resp Distress s/p extubation 03/08 #R SFA Occlusion #Afib/ episodes of NSVT #L nondisplaced transcondylear fracture, splinted #Nasal Bone and Septum Fracture #Factitious thrombocytopenia #PEPPER, resolved #Chronic Seizure Disorder, p/b status epilepticus, delirious Pt has a long standing history of seizure disorder, compliant on his valproic acid as evidenced by records and laboratory studies (Urine Valproate in therapeutic range). Urine toxicology showed evidence of cocaine use, could have played a part into this latest seizure episode. Head CT (02/26) shows a chronic arachnoid cyst on the left anterior middle cranial fossa with some slight interval increase in size. Serial EEGs have showed no seizure activity and diffuse cerebral dysfx. He is extubated, though still remains restless, acutely delirious. IV keppra reduced from 1g q8 to q12. -Pt on keppra and valproate IV -Risperidone, gabapentin PO once pt is able #Acute Resp Distress, s/p extubation On arrival, pt had poor inspiratory effort and there was concern for worsening status, so he was intubated. Aspiration PNA was likely, with a positive resp culture that grew pansensitive E. coli and Staph, so he was put on Unasyn for 7 days, now completed. Leukocytosis is noted, though he remains afebrile. Will continue to monitor. He was extubated on 03/08, swallow evaluation pending. CXR does show improvement compared to prior. -Off abx -IV Unasyn dc'd (DAY #7- Complete) -Cultures - no growth as of now -Swallow eval when able #R SFA Occlusion Pt has been on a-fib since admission to the ICU - he was off systemic anticoagulation due to his multiple fractures in the nasal area and L nondisplaced transcondylear fracture. An arterial doppler U/S showed a R SFA occlusion. He is on hep gtt as benefits>risks. Vascular surgery was consulted and a CTA done on 03/01 that showed segmental occlusions of the distal right SFA. Latest doppler 03/04 showed interval worsening - vascular plan for R leg angiogram p/b embolectomy. -R leg angiogram in the am -f/u vas surgery recommendation #Factitious thrombocytopenia, resolved Pt's low PLT were due to clumping. PF4/ANEESH ordered and sent out, he was started on agatroban drip; they came back negative. He is off argatroban and back on heparin gtt. -Off argatroban, on heparin gtt -HIT work up negative #Afib / Episodes of NSVT Pt currently on afib. Extensive cardiac history of CAD s/p CABG, bioprosthetic valve replacement, HTN/HLD with a positive urine tox for cocaine. Echo (02/27) shows an aortic bioprostethic valve with no significant insufficiency though it was not visualized optimally. LVEF is 60%. Cardiology is following. Had a nonsustained wide complex tachycardia during the night 03/02. 11-beat run of vtach noted on 03/03, and a 21 beat run on 03/07, STAT ekg/trop negative for ischemic changes. No more Vtach on tele noted; he is off amiodarone drip. -Metoprolol 5mg Iv q6 - Off Amiodarone drip #L nondisplaced transcondylear fracture, splinted On arrival, a L nondisplaced transcondylear fracture was noted. Pt is currently splinted. Orthopedics were consulted, and as per their recommendation, due to the patient's current status, a nonoperative management is recommended, though can be reconsidered on improvement of his status. Ice packs can be applied around the elbow. As per vascular surgery's recommendation, a CTA of L arm was ordered, showing possible occlusions within the deep and superficial arches of the hand; though pulses are palpable on the L arm, occlusions might have been artifacts on the study. -Splint to remain -Ice packs around the elbow if needed
[2018-03-12 22:14] LABS: PTT 103 SEC (25-37)
[2018-03-13 05:53] LABS: ABSOLUTE BASOPHIL COUNT 0 /CUMM (0.0-0.2); ABSOLUTE EOSINOPHIL COUNT 0 /CUMM (0.0-0.7); ABSOLUTE GRANULOCYTE CT 6.1 /CUMM (1.4-6.5); ABSOLUTE LYMPH COUNT 1.7 /CUMM (1.2-3.4); BASOPHIL % 0.3 % (0.0-2.0); EOSINOPHIL % 0.1 % (0-5); GRANULOCYTE % 62.1 % (42.2-75.2); HEMATOCRIT 32.8 % (42-52); MEAN CORPUSCULAR HGB 31.1 PG (27.0-31.0); MEAN CORPUSCULAR HGB CONC 34.1 G/DL (33.0-37.0); MEAN PLATELET VOLUME 10.9 FL (7.4-10.4); PLATELET COUNT 261 /CUMM (130-400); RBC DISTRIBUTION WIDTH 14.6 % (11.5-14.5); WHITE BLOOD CELL COUNT 9.8 /CUMM (4.8-10.8)
[2018-03-13 06:04] LABS: PTT 50 SEC (25-37)
--- NOTE | 2018-03-13 07:33 | PN- Resident CRCU ---
PasqualeTruong 03/13/18 0732: Subjective HPI/CRCU Issues: Seizure disorder on Keppra and valproate. Toxic metabolic encephalopathy Acute hypoxic respiratory failure status post extubation(on 03/08) Aspiration pneumonia Right superficial femoral artery occlusion status post stent placement(on 03/13) New-onset atrial fibrillation on anticoagulation Episodes of nonsustained VT Left nondisplaced Nawaf and dilated humeral fracture Nasal bone and septum fracture Thrombocytopenia 67 y/o M with PMH of chronic seizure disorder on valproate, CAD s/p CABG and bovine aortic valve replacement in 2013, Hodgkins lymphoma, HTN and HLD that was brought to the ED after he was found to be unresponsive. Patient was found to have possible metabolic toxic encephalopathy due to seizures or cocaine abuse. Patient had acute respiratory failure and he was intubated and he was extubated successfully on 03/08. Patient was found to have superficial femoral artery occlusion status post stent placement on 03/13. Patient is on IV heparin due to his atrial fibrillation. Patient seen and examined this morning. He was on 2 L of oxygen with nasal cannula and maintaining saturation 95%. Patient was confused and lethargic. He was in [place] due to agitation. Patient has splint on left arm due to his humerus fracture. Patient was not able to onset of the questions. 24 Hour Events: No overnight events. No overnight events. Patient remained afebrile overnight. He is on 2 L of oxygen maintaining saturation 95%. Objective Vital Signs & I&O Last 8 Hrs of Vitals and I&O: Intake & Output 03/13 1600 Intake Total 636 Output Total 1100 Balance -464 Intake, IV 636 Intake, Oral 0 Number 0 Bowel Movements Output, Urine 1100 Exam General Appearance: well developed/nourished, no apparent distress, alert, confused Head: atraumatic, normal appearance Neck: normal inspection, supple Respiratory: normal breath sounds Cardiovascular: regular rate/rhythm Gastrointestinal: normal bowel sounds, soft, non-tender Extremities: normal inspection, no edema Current Medications: Current Medications Sig/Louise Start time Last Medication Dose Route Stop Time Status Admin Acetaminophen 1,000 MG Q6P PRN 03/11 1415 AC 03/13 N/A 1 UNIT IV 0113 Apixaban 5 MG BID 03/14 09 AC PO Atorvastatin Calcium 40 MG 1700 03/01 1700 AC 03/07 PO 1800 Clopidogrel Bisulfate 75 MG DAILY 03/14 0900 AC PO Dextrose/Lactated 1,000 ML Q24 03/12 1053 AC 03/13 Ringer's IV 0613 Diphenhydramine HCl 50 MG Q8P PRN 03/09 1415 AC 03/13 IM 1820 Docusate Sodium 100 MG DAILY NEEDED 03/02 0930 AC 03/02 PO 1057 Fentanyl Citrate 100 MCG .STK-MED ONE 03/13 0714 DC IM 03/13 0715 Haloperidol 1 MG Q8P PRN 03/09 1415 AC 03/13 IM 1821 Heparin Sodium 25,000 UNIT Q24H 03/05 1615 AC 03/13 (Porcine) IV 03/14 0859 1822 Sodium Chloride 500 ML Hydromorphone HCl 1 MG ONCE ONE 03/13 1515 DC 03/13 IV 03/13 1516 1514 Hydromorphone HCl 2 MG ONCE PRN 03/08 0300 AC 03/08 IV 0309 Levetiracetam 500 MG Q12 03/12 2100 AC 03/13 N/A 1 UNIT IV 03/14 1400 2118 Lorazepam 2 MG .STK-MED ONE 03/13 0552 DC IM 03/13 0553 Lorazepam 1 MG Q8 03/09 1516 AC 03/13 IV 2118 Lorazepam 2 MG Q4 PRN 03/08 0200 AC 03/12 IV 0220 Magnesium Sulfate 1 GM ONCE ONE 03/13 1345 DC 03/13 Dextrose/Water 100 ML IV 03/13 1744 1454 Metoprolol Tartrate 5 MG Q6 03/08 1200 AC 03/13 IV 1821 Midazolam HCl 2 MG .STK-MED ONE 03/13 0714 DC IM 03/13 0715 Pantoprazole Sodium 40 MG DAILY 03/08 1045 AC 03/13 IV 1213 Polyethylene Glycol 17 GM DAILY PRN 03/02 0930 AC 03/03 PO 0839 Potassium Chloride 10 MEQ ONCE ONE 03/13 1345 DC 03/13 IV 03/13 1346 1655 Senna 187 MG AT BEDTIME PRN 03/02 0930 AC 03/02 PO 1057 Valproate Sodium 1,000 MG Q12H 03/08 1200 AC 03/13 Sodium Chloride 100 ML IV 1221 Vitamin A/Vitamin D 1 YOKO BID 03/12 1515 AC 03/13 TOP 2118 Impression/Plan Impression/Problem List Impression: 67 y/o M with PMH of chronic seizure disorder on valproate, CAD s/p CABG and bovine aortic valve replacement in 2013, Hodgkins lymphoma, HTN and HLD that was brought to the ED after he was found to be unresponsive. Patient was found to have possible metabolic toxic encephalopathy due to seizures or cocaine abuse. Patient had acute respiratory failure and he was intubated and he was extubated successfully on 03/08. Patient was found to have superficial femoral artery occlusion status post stent placement on 03/13. Patient is on IV heparin due to his atrial fibrillation. Seizure disorder: -Patient's urine was positive for cocaine and cannabis. His seizure could be due to cocaine abuse. Could be due to alcohol abuse. -Continue IV Keppra and valproic acid -Seizure precautions -We'll follow neurology recommendations Toxic metabolic encephalopathy: -Possibly due to seizure activity, hypoxia or could be due to pneumonia. -Continue supplemental oxygen as needed -Continue supportive care -We will give patient haloperidol when necessary as needed for agitation. -Patient completed 7 days of Augmentin and he is off antibiotics now. -We will continue monitoring his mental status level. -Continue Ativan 1 mg every 8 hourly for sedation and will taper it. -Seizure precautions. Peripheral vascular disease: -Right superficial femoral artery occlusion status post stent placement. -Stent placement was done today for acute limb ischemia. -We will start him on Plavix tomorrow -We will follow vascular surgery recommendations History of A. fib: -Patient was placed on IV heparin for anticoagulation to prevent stroke. We will continue IV heparin per. -Continue IV metoprolol 5 mg every 6 hourly. -We will start eliquis from tomorrow and we will discontinue IV heparin. -We'll follow cardiology recommendations Left nondisplaced transcondylar humerus fracture: -We will continue left arm splint and managed conservatively. -Pain medication according to pain pathway. -Ice packing as needed around elbow. DVT prophylaxis: Mechanical and patient is already on IV heparin CODE STATUS: DNR/DNI Problem List: 1. Seizure 2. Metabolic encephalopathy 3. Atrial fibrillation 4. Arterial occlusion Pain Ratin Pain Location: none Tomorrow's Labs & Rationales: cbc/bep Plan DVT/Prophylaxis: mechanical, pharmacological Debbie ANDERSON,[facility] 03/13/18 1527: Attending MD Review Statement Attending Sign Off Attending Cosign Statement: I have: examined this patient, reviewed [facility] EMR data, personally reviewd images, discussd w/resident/PA/MARSHMALLOW MACHINE OPERATOR, discussed mgmt plan w/jeri, discussed mgmt plan w/CM, discussed mgmt plan w/pt, agreed w/resident/PA/MARSHMALLOW MACHINE OPERATOR, amended to note. Other Findings: s/p angioplasty and stenting of the right SFA with 6mm x 150 innova, 6mm x 150 cordis, harriet 6mm x 100 cordis stent. Stable otherwise Still has sig delirium Full note as above [id number],Off restraints and on nasal cannula and sleepy Eomi Chest clear cvs aure, afib abd soft No edema Fracture left Ue Pupils small Does open his eyes on command does squeeze my hand. Does complain of pain and wishes to eat This is a 67-year-old gentleman with history of hypertension, hyperlipidemia, CABG, previous bovine aortic valve replacement, previous history of Hodgkin's lymphoma in the late with previous chemoradiation therapy leading to significant neuropathy, significant medical marijuana usage, alcohol use on and off, multiple surgeries and chronic pain, previous seizure disorder started in 2014 and since then [facility] (compl[facility]) here with encephelopathy multifactorial (not having any seizures) * Sig encephelopathy - Admitted with Witnessed seizure activity and a fall (EEG no further seizures and rapid improvement of seizure on keppra and valproic acid ). Patient does have a large arachnoid cyst in his left temporal area with mass effect to the underlying temporal area (appears stable since 2014), Pt with previous history of sig etoh use, marijuana use and now with urine tox positive for cocaine and seizure from cocaine vs withdrawal and other causes including cocaine induced water pollution scientist injury vs small vessel cerebral ishemia. Continues to be agitated but slightly better * S/p Respiratory failure due to seizure activity and encephelopathy, S/p abx now requires suction * Delirium and encephelopathy (toxic and metabolic) * S/p VT, on Amio * Ischemic foot rt side due to sfa occlusion (appears chronic by CT) s/p surg with stent on 03/13 * Stable Thrombocytopenia - HIT neg now back on heparin * Significant alcohol use by history with probable dts, Marijuana, sig cocaine in the urine upon admission * Sig Heart disease with previous CABG and aortic valve replacement with bioprosthetic valve with previous arrythmia, now in pafib * Previous history of nephrolithiasis, now with john (improving) * Now sig delirium on and off off ativan * Nasal fracture and displaced transcondylar fracture of distal left humerus, conservative rx per ortho * 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 As he is improving will continue maximum conservative therapy
--- NOTE | 2018-03-13 11:10 | Operative Report ---
Operative/Inv Procedure Report Surgery Date: 03/13/18 Name of Procedure: 1. Ultrasound guided access of the left common femoral artery 2. aortogram 3. 2nd and 3rd order arterial catheterization 4. angioplasty and stenting of the right SFA with 6mm x 150 innova, 6mm x 150 cordis, harriet 6mm x 100 cordis stent. Pre-Operative Diagnosis: right leg critical limb ischemia Post-Operative Diagnosis: same Estimated Blood Loss: less than 50ml Surgeon/Racing Driver: Carlos Franz MD Anesthesia: laryngeal mask airway Specimens: none Complications: none Condition: stable, extubated, transferred to pacu Operative Indication: 67 y/o m w/ hx of polysubstance abuse, afib, cad, sz disorder who was found down from presumable sz and intubated in icu with ams. Pt noted to have a cool right foot and signfiicantly diminshed flow on arterial duplex. A CTA was performed that showed SFA occlusion. Pt had a pt signal in his foot but foot appeared significantly cool compared to left foot and there was concern for critical limb ischemia. The patent reamined encephlaopathic after extubation and therefore we were unable to obtain a reliable history. Pt was initiallly planned for or last week but he had several runs of non-sustained vtach and the procedure was canceled. The patient was subsequently placed on amiodarone and had no further episodes and therefore he was cleared for procedure by cardiology. I spoke to the patients nok-- his as he was unable to provide consent. We planned to perform right leg angiogram with possible embolectomy. I explained the risk/ benefits/alternatives of procedure. Informed consent was obtained from the patients . Operative/Procedure Note Note: The patient was brought to the OR. A time out was done to verify the patients name, mrn, . Once this was verified he was placed under LMA anethesia in the supine position. His bilateral groins were prepped and draped in a sterile fashion. We proceeded to adminster 2gm of ancef prior to procedure. We then used the ultrasound to directly access the left common femoral artery using a micropuncture kit. 1% lidocaine was injected into the access site prior to obtaining access. We then placed a bensone wire and upsized to a 5 nigerien sheath. The patient had very torturous iliac arteriers. We used an omin select catheter to shoot and aortogram which demonstrated the following findings. The infra renal aorta was patent with no significant disease. The renal arteries visualized but poorly opacified. The bilateral common iliac/internal iliac, external iliac arteries tortuous but patent without any signficant disease. We then used a rim catheter to select the right iliac system with a .035 glide wire. We then advanced an .035 glide catheter into the distal right external iliac artery. WE then shot sequential angiogram of the right leg which demonstrated the following findings. The right common femoral artery patent without any significant disease. The right profunda femoralis artery patent without any signficant disease. The right SFA had multifocal areas of stenosis and a complete occlusion of the distal SFA approximately 5cm in length. The popliteal artery was patent without any signficant disease. The runoff was via a PT artery which was patent down to the ankle. There was a stenosis in the tibial peroneal trunk. The AT and peroneal artey appeared occluded near their origins. At this time we decided to proceed with intervention. The patient was fully heparinized. We selected the right SFA with an .035 wire and catheter. We then placed stiff wire in the sfa and advanced a 6 nigerien x 55 sheath into the proximal SFA. We then used multiple .035, .018, and .014 wires in attempt to cross the SFA occlusion. Finally we were able to cross with an .035 glide wire and quick cross catheter and we confirmed that we were in the true lumen of the distal sfa after shooting and angiogram. We then placed a stiff .035 glide wire into the popliteal artery . WE then pre dilated the area of occlusion with a 5mm x 150 balloon. Completion angiogram showed significant dissection within the area of occlusion but we had re-established flow. We then placed a 6mm x150 innova stent and a 6mm x150 cordis stent into the sfa and post dilated with the 5mm x`150 balloon. There was still significant proximal disease so we placed an additional 6mm x 100 cordis stent more proximally and post dilated this with the 5mm x 150 balloon. Completion angiogram showed significant improvement of flow in the sfa with no residual stenosis. The outflow remained intact. We decided not to treat the stenosis in the tibial peroneal trunk as the patient has single vessel runnoff and the flow was signficantly improved. At this time we closed the left groin with a 6 nigerien perclose and reversed the patient with protamine. Pressure was held until hemostasis was obtained. The patient was then extubated and transferred to the ICU in stable condition. His feet were warm and he had intact pedal signals. All counts were accurate at the end of the procedure.
[2018-03-13 12:00] VITALS: BP 126/80
--- NOTE | 2018-03-13 12:02 | PN- Cardiology ---
Subjective Subjective: Patient is postop SFA stent. He remains confused Review of Systems: Unobtainable Objective Vital Signs and I&Os Vital Signs Date Time Temp Pulse Resp B/P B/P Pulse O2 O2 Flow FiO2 Mean Ox Delivery Rate 03/13 0808 95 Nasal 2.0L Cannula 03/13 0800 Nasal 2.0L Cannula 03/13 0549 97.0 96 24 136/99 03/13 0400 Nasal 2.0L Cannula 03/13 0000 Nasal 2.0L Cannula 03/12 2200 Nasal 2.0L Cannula 03/12 1828 84 143/92 03/12 1600 97 Nasal 2.0L Cannula 03/12 1600 97.8 88 26 130/92 96 Nasal 2.0L Cannula 03/12 1200 94 Nasal 2.0L Cannula Intake & Output 03/13 1600 03/13 0800 03/13 0000 03/12 1600 03/12 0800 03/12 0000 Intake Total 480 719 475 549 Output Total 900 1000 235 480 Balance -420 -281 240 69 Intake, IV 480 719 475 549 Intake, Oral 0 Number 1 2 1 Bowel Movements Output, Urine 900 1000 235 480 Patient 211 lb Weight Weight Bed scale Measurement Method Physical Exam: Patient is a well-developed well-nourished male confused HEENT is unremarkable Neck is supple there is no JVD Lungs are clear Heart irregular rhythm S1 and S2 are normal no murmurs gallops or rubs Abdomen bowel sounds positive Extremities without edema Current Medications: Current Medications Sig/Louise Start time Last Medication Dose Route Stop Time Status Admin Acetaminophen 1,000 MG Q6P PRN 03/11 1415 AC 03/13 N/A 1 UNIT IV 0113 Atorvastatin Calcium 40 MG 1700 03/01 1700 AC 03/07 PO 1800 Dextrose/Lactated 1,000 ML Q24 03/12 1053 AC 03/13 Ringer's IV 0613 Diphenhydramine HCl 50 MG Q8P PRN 03/09 1415 AC IM Docusate Sodium 100 MG DAILY NEEDED 03/02 0930 AC 03/02 PO 1057 Haloperidol 1 MG Q8P PRN 03/09 1415 AC IM Heparin Sodium 25,000 UNIT Q24H 03/05 1615 AC 03/12 (Porcine) IV 1829 Sodium Chloride 500 ML Hydromorphone HCl 2 MG ONCE PRN 03/08 0300 AC 03/08 IV 0309 Levetiracetam 500 MG Q12 03/12 2100 AC 03/12 N/A 1 UNIT IV 03/14 1400 2105 Levetiracetam 1,000 MG Q12 03/09 2100 DC 03/12 N/A 1 UNIT IV 03/12 2059 0947 Lorazepam 1 MG Q8 03/09 1516 AC 03/13 IV 0540 Lorazepam 2 MG Q4 PRN 03/08 0200 AC 03/12 IV 0220 Metoprolol Tartrate 5 MG Q6 03/08 1200 AC 03/13 IV 0549 Pantoprazole Sodium 40 MG DAILY 03/08 1045 AC 03/12 IV 0947 Polyethylene Glycol 17 GM DAILY PRN 03/02 0930 AC 03/03 PO 0839 Senna 187 MG AT BEDTIME PRN 03/02 0930 AC 03/02 PO 1057 Valproate Sodium 1,000 MG Q12H 03/08 1200 AC 03/13 Sodium Chloride 100 ML IV 0048 Vitamin A/Vitamin D 1 YOKO BID 03/12 1515 03/12 TOP 210 Results Last 48 Hrs of Labs/Mics: Laboratory Tests 03/13/18 0515: Anion Gap 12, Estimated GFR > 60, Glucose 95, Calcium 8.5, Phosphorus 3.1, Magnesium 1.8, Total Bilirubin 0.7, AST 38, ALT 33, Albumin 2.8 L, APTT 50 H, CBC w Diff MAN DIFF ORDERED, RBC 3.60 L, MCV 91.0, MCH 31.1 H, MCHC 34.1, RDW 14.6 H, MPV 10.9 H, Gran % 62.1, Lymphocytes % 16.9 L, Monocytes % 20.6 H, Eosinophils % 0.1, Basophils % 0.3, Absolute Granulocytes 6.1, Segmented Neutrophils 60, Band Neutrophils 8 H, Absolute Lymphocytes 1.7, Lymphocytes 18 L, Monocytes 13 H, Absolute Monocytes 2.0 H, Absolute Eosinophils 0, Absolute Basophils 0, Metamyelocytes 1, Platelet Estimate ADEQUATE, Normocytic RBCs VERIFIED, Polychromasia 1+ 03/12/180: APTT 103 *H 03/12/18 1300: APTT Cancelled 03/12/18 0500: Anion Gap 11, Estimated GFR > 60, Glucose 87, Calcium 8.2 L, Phosphorus 3.4, Magnesium 1.9, Total Bilirubin 0.7, AST 39, ALT 30, Albumin 2.7 L, APTT > 120 * H, CBC w Diff MAN DIFF ORDERED, RBC 3.58 L, MCV 89.9, MCH 31.1 H, MCHC 34.6, RDW 14.5, MPV 11.0 H, Gran % 65.2, Lymphocytes % 12.6 L, Monocytes % 21.9 H, Eosinophils % 0.1, Basophils % 0.2, Absolute Granulocytes 7.8 H, Segmented Neutrophils 75, Absolute Lymphocytes 1.5, Lymphocytes 12 L, Monocytes 13 H, Absolute Monocytes 2.6 H, Absolute Eosinophils 0, Absolute Basophils 0, Platelet Estimate ADEQUATE, Polychromasia 1+, Ovalocytes FEW, Fld Total RBCs Counted 100 03/11/18 2150: APTT 40 H 03/11/18 1312: pH 7.45, pCO2 36, pO2 84, HCO3 25, ABG O2 Sat (Measured) 95.0 L, Carboxyhemoglobin 0.3 L, O2 Concentration % 2L, O2 Delivery Method NC, Phlebotomy Draw Site RIGHT BRACHIAL 03/11/18 1234: APTT 56 H Telemetry personally reviewed atrial fibrillation Assessment/Plan Assessment/Plan 1. Seizure disorder/ecephalopathy 2. Atrial fibrillation, was not on chronic AC due to seizure disorder with refractory polysubstance abuse 3. Coronary artery disease status post CABG 4. Bioprosthetic aortic valve 5. Nonsustained wide complex tachycardia 6. Peripheral vascular disease 7. 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 polysubstance abuse, including cocaine 9. Hypertension 10. Hyperlipidemia 11. ?thrombocytopenia; improved 12. PNA Recommendations 1. Per vascular will start Plavix 2. Resume Eliquis for stroke prevention 3. Continue to monitor on telemetry Continue telemetry? Yes
[2018-03-13 16:00] VITALS: BP 140/62
--- NOTE | 2018-03-13 16:03 | PN- Vascular Surgery ---
Subjective Subjective: No complaints. Nurse reports he has been frequently moving around in bed since he return from the OR. Objective Vital Signs and I&Os Vital Signs Date Time Temp Pulse Resp B/P B/P Pulse O2 O2 Flow FiO2 Mean Ox Delivery Rate 03/13 1221 100 126/80 03/13 1200 95 Nasal 2.0L Cannula 03/13 1200 96.8 94 20 126/80 95 Nasal 2.0L Cannula 03/13 0808 95 Nasal 2.0L Cannula 03/13 0800 Nasal 2.0L Cannula 03/13 0549 97.0 96 24 136/99 03/13 0400 Nasal 2.0L Cannula 03/13 0000 Nasal 2.0L Cannula 03/12 2200 Nasal 2.0L Cannula 03/12 1828 84 143/92 Intake & Output 03/13 1600 03/13 0800 03/13 0000 03/12 1600 03/12 0800 03/12 0000 Intake Total 480 719 475 549 Output Total 900 1000 235 480 Balance -420 -281 240 69 Intake, IV 480 719 475 549 Intake, Oral 0 Number 1 2 1 Bowel Movements Output, Urine 900 1000 235 480 Patient 211 lb Weight Weight Bed scale Measurement Method Physical Exam: General - alert. moving around. no acute distress. Extremities - warm bilaterally. left groin dressing c/d/i. no hematoma. feet warm b/l. dopplerable PT signal appreciated right foot. Current Medications: Current Medications Sig/Louise Start time Last Medication Dose Route Stop Time Status Admin Acetaminophen 1,000 MG Q6P PRN 03/11 1415 AC 03/13 N/A 1 UNIT IV 0113 Apixaban 5 MG BID 03/14 900 AC PO Atorvastatin Calcium 40 MG 1700 03/01 1700 AC 03/07 PO 1800 Clopidogrel Bisulfate 75 MG DAILY 03/14 900 AC PO Dextrose/Lactated 1,000 ML Q24 03/12 1053 AC 03/13 Ringer's IV 0613 Diphenhydramine HCl 50 MG Q8P PRN 03/09 1415 AC IM Docusate Sodium 100 MG DAILY NEEDED 03/02 930 AC 03/02 PO 1057 Fentanyl Citrate 100 MCG .STK-MED ONE 03/13 0714 DC IM 03/13 0715 Haloperidol 1 MG Q8P PRN 03/09 1415 AC IM Heparin Sodium 25,000 UNIT Q24H 07/23 1615 AC 03/12 (Porcine) IV 03/14 0859 1829 Sodium Chloride 500 ML Hydromorphone HCl 1 MG ONCE ONE 03/13 1515 DC 03/13 IV 03/13 1516 1514 Hydromorphone HCl 2 MG ONCE PRN 03/08 0300 AC 03/08 IV 0309 Levetiracetam 500 MG Q12 03/12 2100 AC 03/13 N/A 1 UNIT IV 03/14 1400 1213 Levetiracetam 1,000 MG Q12 03/09 2100 DC 03/12 N/A 1 UNIT IV 03/12 205 0947 Lorazepam 2 MG .STK-MED ONE 03/13 0552 DC IM 03/13 0553 Lorazepam 1 MG Q8 03/09 1516 AC 03/13 IV 1359 Lorazepam 2 MG Q4 PRN 03/08 0200 AC 03/12 IV 0220 Magnesium Sulfate 1 GM ONCE ONE 03/13 1345 AC 03/13 Dextrose/Water 100 ML IV 03/13 1744 1454 Metoprolol Tartrate 5 MG Q6 03/08 1200 AC 03/13 IV 1221 Midazolam HCl 2 MG .STK-MED ONE 03/13 0714 DC IM 03/13 0715 Pantoprazole Sodium 40 MG DAILY 03/08 1045 AC 03/13 IV 1213 Polyethylene Glycol 17 GM DAILY PRN 03/02 0930 03/03 PO 0839 Potassium Chloride 10 MEQ ONCE ONE 03/13 1345 DC IV 03/13 1346 Senna 187 MG AT BEDTIME PRN 03/02 0930 03/02 PO 1057 Valproate Sodium 1,000 MG Q12H 03/08 1200 AC 03/13 Sodium Chloride 100 ML IV 1221 Vitamin A/Vitamin D 1 YOKO BID 03/12 1515 03/13 TOP 1214 Results Last 48 Hours of Labs: Laboratory Tests 03/13 03/12 03/12 0515 2050 1300 Chemistry Sodium (137 - 145 mmol/L) 145 Potassium (3.5 - 5.1 mmol/L) 3.6 Chloride (98 - 107 mmol/L) 107 Carbon Dioxide (22 - 30 mmol/L) 26 Anion Gap (5 - 16) 12 BUN (9 - 20 mg/dL) 12 Creatinine (0.7 - 1.2 mg/dL) 1.0 Estimated GFR (>60 ml/min) > 60 Glucose (65 - 99 mg/dL) 95 Calcium (8.4 - 10.2 mg/dL) 8.5 Phosphorus (2.5 - 4.5 mg/dL) 3.1 Magnesium (1.6 - 2.3 mg/dL) 1.8 Total Bilirubin (0.2 - 1.3 mg/dL) 0.7 AST (17 - 59 U/L) 38 ALT (21 - 72 U/L) 33 Albumin (3.5 - 5.0 g/dL) 2.8 L Coagulation APTT (25 - 37 SEC) 50 H 103 *H Cancelled Hematology CBC w Diff MAN DIFF ORDERED WBC (4.8 - 10.8 /CUMM) 9.8 RBC (4.70 - 6.10 /CUMM) 3.60 L Hgb (14.0 - 18.0 G/DL) 11.2 L Hct (42 - 52 %) 32.8 L MCV (80.0 - 94.0 FL) 91.0 MCH (27.0 - 31.0 PG) 31.1 H MCHC (33.0 - 37.0 G/DL) 34.1 RDW (11.5 - 14.5 %) 14.6 H Plt Count (130 - 400 /CUMM) 261 MPV (7.4 - 10.4 FL) 10.9 H Gran % (42.2 - 75.2 %) 62.1 Lymphocytes % (20.5 - 51.1 %) 16.9 L Monocytes % (1.7 - 9.3 %) 20.6 H Eosinophils % (0 - 5 %) 0.1 Basophils % (0.0 - 2.0 %) 0.3 Absolute Granulocytes (1.4 - 6.5 /CUMM) 6.1 Segmented Neutrophils (42.2 - 75.2 %) 60 Band Neutrophils (0.0 - 5.0 %) 8 H Absolute Lymphocytes (1.2 - 3.4 /CUMM) 1.7 Lymphocytes (20.5 - 51.1 %) 18 L Monocytes (1.7 - 9.3 %) 13 H Absolute Monocytes (0.10 - 0.60 /CUMM) 2.0 H Absolute Eosinophils (0.0 - 0.7 /CUMM) 0 Absolute Basophils (0.0 - 0.2 /CUMM) 0 Metamyelocytes (0.0 - 1.0 %) 1 Platelet Estimate (ADEQUATE) ADEQUATE Normocytic RBCs VERIFIED Polychromasia 1+ 03/12 03/11 0500 2150 Chemistry Sodium (137 - 145 mmol/L) 144 Potassium (3.5 - 5.1 mmol/L) 3.7 Chloride (98 - 107 mmol/L) 108 H Carbon Dioxide (22 - 30 mmol/L) 25 Anion Gap (5 - 16) 11 BUN (9 - 20 mg/dL) 15 Creatinine (0.7 - 1.2 mg/dL) 1.0 Estimated GFR (>60 ml/min) > 60 Glucose (65 - 99 mg/dL) 87 Calcium (8.4 - 10.2 mg/dL) 8.2 L Phosphorus (2.5 - 4.5 mg/dL) 3.4 Magnesium (1.6 - 2.3 mg/dL) 1.9 Total Bilirubin (0.2 - 1.3 mg/dL) 0.7 AST (17 - 59 U/L) 39 ALT (21 - 72 U/L) 30 Albumin (3.5 - 5.0 g/dL) 2.7 L Coagulation APTT (25 - 37 SEC) > 120 *H 40 H Hematology CBC w Diff MAN DIFF ORDERED WBC (4.8 - 10.8 /CUMM) 12.0 H RBC (4.70 - 6.10 /CUMM) 3.58 L Hgb (14.0 - 18.0 G/DL) 11.1 L Hct (42 - 52 %) 32.2 L MCV (80.0 - 94.0 FL) 89.9 MCH (27.0 - 31.0 PG) 31.1 H MCHC (33.0 - 37.0 G/DL) 34.6 RDW (11.5 - 14.5 %) 14.5 Plt Count (130 - 400 /CUMM) 214 MPV (7.4 - 10.4 FL) 11.0 H Gran % (42.2 - 75.2 %) 65.2 Lymphocytes % (20.5 - 51.1 %) 12.6 L Monocytes % (1.7 - 9.3 %) 21.9 H Eosinophils % (0 - 5 %) 0.1 Basophils % (0.0 - 2.0 %) 0.2 Absolute Granulocytes (1.4 - 6.5 /CUMM) 7.8 H Segmented Neutrophils (42.2 - 75.2 %) 75 Absolute Lymphocytes (1.2 - 3.4 /CUMM) 1.5 Lymphocytes (20.5 - 51.1 %) 12 L Monocytes (1.7 - 9.3 %) 13 H Absolute Monocytes (0.10 - 0.60 /CUMM) 2.6 H Absolute Eosinophils (0.0 - 0.7 /CUMM) 0 Absolute Basophils (0.0 - 0.2 /CUMM) 0 Platelet Estimate (ADEQUATE) ADEQUATE Polychromasia 1+ Ovalocytes FEW Other Body Source Fld Total RBCs Counted (%) 100 Assessment/Plan Assessment/Plan This 67 year old male hx of lymphoma, CAD s/p cabg and aortic valve replacement, sz disorder, found down and unnresponsive presumably from a sz, distal left humerus fx, who is POD#0 s/p usn guided access of the left common femoral artery, aortogram, 2nd and 3rd order arterial catheterization, and angioplasty / stenting of the right SFA for right leg critical limb ischemia anticoagulation ordered to start in the morning (eliquis / plavix) pain control as needed neurovascular checks will d/w
[2018-03-13 21:44] LABS: PTT 56 SEC (25-37)
[2018-03-13 23:00] VITALS: BP 142/72; BP 90/60
--- NOTE | 2018-03-14 02:08 | Event Note ---
Event Note Event Note: S- Patients respiratory status significantly deteriorated. ABS demonstrated acidosis, hypercapnea, hypoxia. Patient had agonal breathing and desaturating on BIPAP. Spoke to patients over the phone who was told about the situation as well as to confirm patients code status. Patients , Brandy Hendricks, stated she would like the attempt for the intubation despite the consequence of possible cardiac arrest that was carefully explained. Patients confirmed only DNR status. The resident was able to further discuss the situation with Dr. Rosales via the phone. Dr. Lewis, the patients physician, was unable to be contacted. Dr. Gil the parking lot manager on staff was informed. Anesthesia was contacted and patient was intubated successfully. Repeat chest x-ray was ordered to confirm placement of the ET Tube. B- Patient is a 67 year old male with PMH of chronic seizure disorder on valproate, CAD s/p CABG and bovine aortic valve replacement in 2013, Hodgkins lymphoma, HTN and HLD that was brought to the ED after he was found to be unresponsive. Patient had acute respiratory failure, admitted to ICU and he was intubated. Extubated recently on 03/08. Patient was found to have superficial femoral artery occlusion status post stent placement on 03/13. Patient is on IV heparin due to his atrial fibrillation. Saturating well on 2L NC after procedure. Respiratory status deteriorated at around 10:30PM and patient placed intermittently on BIPAP. AR- Given abnormal arterial blood gas and recent deterioration in patients respiratory status, patient was subsequently intubated. Although initial code status was DNR/DNI, patients (Brandy Hendricks), stated she wanted to change the code status to DNR ONLY. Stitcher Tape Controlled Machine Dr. Gil was aware of the situation and had seen the patient. Dr. Rosales was contacted and agreed to continue intubation given patients wifes wishes. Dr. Lewis was attempted to be contacted but was unavailable. Chest X-ray to confirmed placement of ET/OG tube. IV fluids were given. Consent for central line obtained if needed. Repeat ABG demonstrated improvement in respiratory status. * Labs drawn cbc, chemistry, lactic acid. Cultures attempted to be drawn. * Continue to monitor patients MAP/Pressures accordingly * Continue patient on IV hydration 1-2 L. * Further evaluation/goals of care in the morning and obtain recommendations from Dr. Lewis, patients physician. Patients (Brandy Hendricks) prefers to be contacted on her cell phone: Resident Addendum: Situation Acute respiratory distress Background 67 year old man with multiple medical problems significant for CAD s/p CABG, AVR , lymphoma admitted after being found unresponsive after having seizure activty requiring ICU admission and intubation for respiratory failure. Patient had a prolonged complicated hospital course but was eventually extubated. He underwent an angiogram this morning uneventfully and was placed on supplemental oxygen via nasal cannula during the day. Late in the evening he was seen to be somnolent for which a blood gas demonstrated acidemia, hypoxia, and hypercarbia. He was placed on bipap but shortly there after was seen to have agonal breathing; repeat ABG was unchanged. Patients was contacted regarding these events who wanted the patient to be intubated. The risks and benefits were extensively discussed. Code status was change to DNR. Patient was intubated and placed on mechanical ventillation uneventfully. Blood pressure was low with low urine output over the past shift for which 3 literal of normal saline were bolused. Stitcher Tape Controlled Machine Dr. Gil was present and made aware of these events. The senior sales operations analyst package drier Dr. Rosales was contacted who agreed with this plan. The primary intensive Dr. Lewis was contacted but could not be reached. Assessment Patient appears to again have had respiratory failure that is multifactorial in etiology; likely due to the perioperative anesthetic used in addition to the patient many medications with sedative effects in the setting of acute illness. Patient had marked improved of his blood pressure and blood gas. Consent for central line was obtained should it be required. Recommendations -Intubated, on Vent: Vt 500, RR 16, FiO2 70%, PEEP 5 -S/p 3 L normal saline, continue NS @ 125 mL/hr -Monitor for respiratory distress or hemodynamic instability -Contact with updates on her cell phone [phone] -Patient is now DNR from DNR/DNI
--- NOTE | 2018-03-14 03:37 | RADIOLOGY REPORT ---
EXAMINATION: XR PORTABLE CHEST CLINICAL INFORMATION: 67-year-old male patient intubated. Confirm placement. COMPARISON: Portable chest x-rays from from 03/08/2018 through 03/11/2018. TECHNIQUE: Portable AP semierect view of the chest was obtained. FINDINGS: The tip of the endotracheal tube is approximately 8 cm above the seven. An orogastric tube is not visualized. The heart remains enlarged. The pulmonary edema seen on March 09 has cleared. However, there is now evidence of atelectasis of the right lower lobe and a portion of the right middle lobe. IMPRESSION: 1. Tip of endotracheal tube is approximately 8 cm above the seven at the level of the clavicles. 2. The heart is enlarged. 3. New right lower and middle lobe atelectasis. The interstitial pulmonary edema seen on March 09 has resolved.
[2018-03-14 05:04] LABS: HEMATOCRIT 31.2 % (42-52); MEAN CORPUSCULAR HGB CONC 33.4 G/DL (33.0-37.0); MEAN CORPUSCULAR VOLUME 92.9 FL (80.0-94.0); MEAN PLATELET VOLUME 9.7 FL (7.4-10.4); PLATELET COUNT 203 /CUMM (130-400); RBC DISTRIBUTION WIDTH 15.3 % (11.5-14.5); RED BLOOD CELL CT 3.36 /CUMM (4.70-6.10); WHITE BLOOD CELL COUNT 11.5 /CUMM (4.8-10.8)
[2018-03-14 05:22] LABS: PTT > 120 SEC (25-37)
--- NOTE | 2018-03-14 07:12 | PN- Resident CRCU ---
Subjective HPI/CRCU Issues: Seizure disorder on Keppra and valproate. Toxic metabolic encephalopathy Acute hypoxic respiratory failure status post extubation(on 03/08) Aspiration pneumonia Right superficial femoral artery occlusion status post stent placement(on 03/13) New-onset atrial fibrillation on anticoagulation Episodes of nonsustained VT Left nondisplaced Nawaf and dilated humeral fracture Nasal bone and septum fracture Thrombocytopenia Acute hypoxic and hypercapnic respiratory failure s/p intubated again (03/14) 24 Hour Events: Overnight patient was in acute hypoxic and hypercapnic respiratory failure. Night team evaluated the patient and did the ABG that showed pH 7.13, PCO2 88 and PO2 40. Family was informed for the condition and be allowed to team for placing endotracheal tube. His CODE STATUS was changed to DNR only. He was hypotensive and given 3 L of normal saline and his blood pressure stabilized. Although central line placement consent was obtained. Patient is seen and examined this morning he was intubated, responding to verbal commands and opening his eyes. Patient has purposeful movements. He is hemodynamically stable at this point maintaining blood pressure 100/73. His pH on ABGs this morning is 7.42, PCO2 came down to 34 and PO2 241. His input and output in 24 hours his 3890/1700. He is on ventilator with r/r 20 /m, peak flow 70, PEEP 5, tidal volume 500 and O2 60 Objective Vital Signs & I&O Last 8 Hrs of Vitals and I&O: TEMP 98.6, PULSE 85, R/R 21, BP 136/80, O2 SAT 100 ON VENT Exam General Appearance: well developed/nourished Head: atraumatic, normal appearance Neck: normal inspection, supple Respiratory: intubated. Cardiovascular: regular rate/rhythm Gastrointestinal: normal bowel sounds, soft Extremities: normal inspection, no edema Skin Temp/Moisture Exam: Warm/Dry Current Medications: Current Medications Sig/Louise Start time Last Medication Dose Route Stop Time Status Admin Acetaminophen 1,000 MG Q6P PRN 03/11 1415 AC 03/13 N/A 1 UNIT IV 0113 Apixaban 5 MG BID 03/14 0900 DC PO Atorvastatin Calcium 40 MG 1700 / 1700 AC 03/14 PO 1709 Clopidogrel Bisulfate 75 MG DAILY 03/14 0900 AC 03/14 PO 1353 Dexmedetomidine HCl 400 MCG Q20H 03/14 1500 AC 03/14 Sodium Chloride 96 ML IV 1721 Dextrose/Lactated 1,000 ML Q10H 03/14 1430 AC 03/14 Ringer's IV 2330 Dextrose/Lactated 1,000 ML Q24 03/12 1053 DC 03/14 Ringer's IV 1158 Diphenhydramine HCl 50 MG Q8P PRN 03/09 1415 DC 03/13 IM 1820 Docusate Sodium 100 MG DAILY NEEDED 03/02 0930 AC 03/02 PO 1057 Haloperidol 1 MG Q8P PRN 03/09 1415 DC 03/13 IM 1821 Heparin Sodium 25,000 UNIT Q24H 03/14 1200 AC 03/15 (Porcine) IV 0335 Sodium Chloride 500 ML Heparin Sodium 3,840 UNIT Q8 03/14 0600 DC (Porcine) SC Heparin Sodium 25,000 UNIT Q24H 03/05 1615 DC 03/13 (Porcine) IV 03/14 0859 1822 Sodium Chloride 500 ML Hydromorphone HCl 2 MG ONCE PRN 03/08 0300 DC 03/13 IV 2216 Levetiracetam 500 MG Q12 03/12 2100 AC 03/14 N/A 1 UNIT IV 03/16 0700 2145 Lorazepam 1 MG Q2 HRS NEEDED PRN 03/14 1130 AC 03/15 IV 0407 Lorazepam 1 MG ONCE ONE 03/14 1130 DC 03/14 IV 03/14 1131 1144 Lorazepam 1 MG Q6P PRN 03/14 1100 DC 03/14 IV 1112 Lorazepam 1 MG Q8 03/09 1516 DC 03/13 IV 2118 Lorazepam 2 MG Q4 PRN 03/08 0200 ID 03/13 IV 2215 Magnesium Sulfate 1 GM ONCE ONE 03/14 1200 DC 03/14 Dextrose/Water 100 ML IV 03/14 1559 1157 Metoprolol Tartrate 5 MG Q6 03/08 1200 AC 03/14 IV 2330 Morphine Sulfate 2 MG Q2P PRN 03/14 1415 AC IV Non-Formulary 0 SEE ADMIN CRITERIA 03/14 1445 CAN Medication ANY Pantoprazole Sodium 40 MG DAILY 03/08 1045 AC 03/14 IV 0931 Polyethylene Glycol 17 GM DAILY PRN 03/02 0930 AC 03/03 PO 0839 Senna 187 MG AT BEDTIME PRN 03/02 0930 AC 03/02 PO 1057 Sodium Chloride 1,000 ML BOLUS ONE 03/14 0600 DC 08 IV 03/14 0659 0600 Sodium Chloride 1,000 ML Q8H 03/14 0215 DC 03/14 IV 0500 Valproate Sodium 1,000 MG Q12H 03/08 1200 AC 03/14 Sodium Chloride 100 ML IV 2330 Vitamin A/Vitamin D 1 YOKO BID 03/12 1515 AC 03/14 TOP 2145 Impression/Plan Impression/Problem List Impression: 67 y/o M with PMH of chronic seizure disorder on valproate, CAD s/p CABG and bovine aortic valve replacement in 2013, Hodgkins lymphoma, HTN and HLD that was brought to the ED after he was found to be unresponsive. Patient was found to have possible metabolic toxic encephalopathy due to seizures or cocaine abuse. Patient had acute respiratory failure and he was intubated and he was extubated successfully on 03/08. Patient was found to have superficial femoral artery occlusion status post stent placement on 03/13. Patient is on IV heparin due to his atrial fibrillation. Acute hypoxic and hypercapnic respiratory failure: -Could be multifactorial but possibly due to oversedation as patient was on multiple medications that can oversedate him. -Continue intubation and ventilation. We will follow the pulmonology recommendations to wean off ventilation when appropriate. -We will follow results of CT scan head to rule out any bleeding. -We will discontinue all the sedating medications. We will keep Ativan 1 mg every 2 hourly when necessary. -We will check chest x-ray for endotracheal tube position. Seizure disorder: -Patient's urine was positive for cocaine and cannabis. His seizure could be due to cocaine abuse. Could be due to alcohol abuse. -Continue IV Keppra and valproic acid -Seizure precautions. Toxic metabolic encephalopathy: -Possibly due to seizure activity, hypoxia or could be due to pneumonia. -Patient is intubated again due to acute hypoxic and hypercapnic respiratory failure due to oversedation. -Continue supportive care -Patient completed 7 days of Augmentin and he is off antibiotics now. -We will continue monitoring his mental status level. -Continue Ativan 1 mg every 2 hourly for sedation. -Seizure precautions. Peripheral vascular disease: -Right superficial femoral artery occlusion status post stent placement. -Stent placement was done today for acute limb ischemia. -Continue Plavix. -We will follow vascular surgery recommendations. History of A. fib: -Patient was placed on IV heparin for anticoagulation to prevent stroke. We will continue IV heparin per. -Continue IV metoprolol 5 mg every 6 hourly. -We'll follow cardiology recommendations. Left nondisplaced transcondylar humerus fracture: -We will continue left arm splint and managed conservatively. -Pain medication according to pain pathway. -Ice packing as needed around elbow. DVT prophylaxis: Mechanical and patient is already on IV heparin CODE STATUS: DNR/DNI Problem List: 1. Metabolic encephalopathy 2. Seizure 3. Atrial fibrillation 4. Arterial occlusion 5. Acute respiratory failure with hypoxia and hypercapnia Pain Ratin Pain Location: none Tomorrow's Labs & Rationales: cbc/bep/lfts/mag Plan DVT/Prophylaxis: mechanical, pharmacological
--- NOTE | 2018-03-14 07:22 | RADIOLOGY REPORT ---
EXAMINATION: XR PORTABLE CHEST CLINICAL INFORMATION: 67-year-old male patient with hypoxia. Intubated. OGT repositioned. COMPARISON: Portable chest x-ray done earlier this morning. TECHNIQUE: Portable AP semierect view of the chest was obtained. FINDINGS: Reexamination shows the tip of the endotracheal tube to be 7 cm above the seven. There is persistent right lower lobe and right middle lobe atelectasis. The heart remains enlarged. The tip of the enteric tube terminates in the stomach. IMPRESSION: 1. Tip of endotracheal tube is 7 cm above the seven. The tip of the enteric tube is in the stomach. 2. Persistent right lower lobe/right middle lobe volume loss. Alternatively, the findings could be attributed to a right pleural effusion.
--- NOTE | 2018-03-14 07:45 | RADIOLOGY REPORT ---
EXAMINATION: Intraoperative fluoroscopy CLINICAL INFORMATION: 67-year-old male undergoing left lower extremity arteriogram with angioplasty and stent insertion COMPARISON: CTA lower extremity runoff 03/01/2018 TECHNIQUE: Intraoperative fluoroscopy was provided for use by Dr. Franz. A total of 32 images were saved to PACS. Radiologist was not present during imaging. TOTAL FLUOROSCOPIC TIME: 58 minutes and 37 seconds. FINDINGS\E\IMPRESSION: Intraoperative fluoroscopy provided for use by Dr. Franz. Please see operative note for detailed findings.
[2018-03-14 08:00] VITALS: BP 110/80
--- NOTE | 2018-03-14 11:05 | PN- Cardiology ---
Subjective Subjective: Patient is now intubated. Objective Vital Signs and I&Os Vital Signs Date Time Temp Pulse Resp B/P B/P Pulse O2 O2 Flow FiO2 Mean Ox Delivery Rate 03/14 0816 60 03/14 0800 100 Ventilator 60% 03/14 0800 96.8 74 20 110/80 100 Ventilator 60% 03/14 0620 70 03/14 0507 81 90/77 / 0405 70 03/14 0404 100 03/14 0400 100 Ventilator 70% 03/14 0153 100 03/14 0050 91 61 03/14 0000 100 BIPAP 100% 03/13 2323 63 94 03/13 2311 104 106/76 03/13 2300 98.7 74 36 90/60 100 BIPAP 100% 03/13 2000 91 Nasal 2.0L Cannula 03/13 1821 108 133/93 03/13 1600 98.4 88 20 140/62 95 Nasal 2.0L Cannula 03/13 1600 95 Nasal 2.0L Cannula 03/13 1221 100 126/80 03/13 1200 95 Nasal 2.0L Cannula 03/13 1200 96.8 94 20 126/80 95 Nasal 2.0L Cannula Intake & Output 03/14 1600 03/14 0800 03/14 0000 03/13 1600 03/13 0800 03/13 0000 Intake Total 2842 412 636 480 Output Total 166 158 2238 900 Balance 2692 -38 -464 -420 Intake, IV 2842 412 636 480 Intake, Oral 0 0 0 Number 0 Bowel Movements Output, Urine 706 606 4283 900 Physical Exam: General: Intubated Eyes: No obvious scleral icterus. HEENT: No jugular venous distention or abnormal jugular venous pulsations. Cardiovascular: Normal intensity S1/S2. Irregular Respiratory: Decreased air entry on the right Abdomen: no guarding Musculoskeletal: No clubbing; decreased lower extremity pulses Skin: No cyanosis Current Medications: Current Medications Sig/Louise Start time Last Medication Dose Route Stop Time Status Admin Acetaminophen 1,000 MG Q6P PRN 03/11 1415 AC 03/13 N/A 1 UNIT IV 0113 Apixaban 5 MG BID 03/14 900 DC PO Atorvastatin Calcium 40 MG 1700 03/01 1700 AC 03/07 PO 1800 Clopidogrel Bisulfate 75 MG DAILY 03/14 900 AC PO Dextrose/Lactated 1,000 ML Q24 07/30 1053 AC 03/13 Ringer's IV 0613 Diphenhydramine HCl 50 MG Q8P PRN 03/09 1415 UT 03/13 IM 1820 Docusate Sodium 100 MG DAILY NEEDED 03/02 0930 03/02 PO 1057 Haloperidol 1 MG Q8P PRN 03/09 1415 AC 03/13 IM 1821 Heparin Sodium 3,840 UNIT Q8 03/14 0600 DC (Porcine) SC Heparin Sodium 3,840 UNIT ONCE ONE 03/13 2230 DC 03/13 (Porcine) IV 03/13 2231 2252 Heparin Sodium 25,000 UNIT Q24H 03/05 1615 DC 03/13 (Porcine) IV 03/14 0859 1822 Sodium Chloride 500 ML Hydromorphone HCl 1 MG ONCE ONE 03/13 1515 DC 03/13 IV 03/13 1516 1514 Hydromorphone HCl 2 MG ONCE PRN 03/08 0300 AC 03/13 IV 2216 Levetiracetam 500 MG Q12 03/12 2100 AC 03/14 N/A 1 UNIT IV 03/14 1400 0931 Lorazepam 1 MG Q6P PRN 03/14 1100 AC IV Lorazepam 1 MG Q8 03/09 1516 UT 03/13 IV 2118 Lorazepam 2 MG Q4 PRN 03/08 0200 DC 03/13 IV 2215 Magnesium Sulfate 1 GM ONCE ONE 03/13 1345 DC 03/13 Dextrose/Water 100 ML IV 03/13 1744 1454 Metoprolol Tartrate 5 MG Q6 03/08 1200 AC 03/13 IV 2311 Pantoprazole Sodium 40 MG DAILY 03/08 1045 AC 03/14 IV 0931 Polyethylene Glycol 17 GM DAILY PRN 03/02 0930 03/03 PO 0839 Potassium Chloride 10 MEQ ONCE ONE 03/13 1345 DC 03/13 IV 03/13 1346 1655 Senna 187 MG AT BEDTIME PRN 03/02 0930 AC 03/02 PO 1057 Sodium Chloride 1,000 ML BOLUS ONE 03/14 0600 DC 03/14 IV 03/14 0659 0600 Sodium Chloride 1,000 ML BOLUS ONE 03/14 0345 DC 03/14 IV 03/14 0444 0411 Sodium Chloride 1,000 ML BOLUS ONE 03/14 0230 DC 03/14 IV 03/14 0329 0229 Sodium Chloride 1,000 ML Q8H 03/14 0215 03/14 IV 0500 Valproate Sodium 1,000 MG Q12H 03/08 1200 03/13 Sodium Chloride 100 ML IV 2311 Vitamin A/Vitamin D 1 YOKO BID 03/12 1515 03/14 TOP 0931 Results Last 48 Hrs of Labs/Mics: Laboratory Tests 03/14/18 0834: Lactic Acid 1.2 03/14/18 0730: Lactic Acid Cancelled 03/14/18 0429: Lactic Acid 2.3 H 03/14/18 0429: Anion Gap 12, Estimated GFR 46 L, Glucose 88, Calcium 7.8 L, Phosphorus 5.2 H , Magnesium 1.9, Total Bilirubin 0.5, AST 38, ALT 30, Troponin I 0.04, Albumin 2.5 L, APTT > 120 *H, CBC w Diff MAN DIFF ORDERED, RBC 3.36 L, MCV 92.9, MCH 31.0, MCHC 33.4, RDW 15.3 H, MPV 9.7, Lymphocytes % 7.7 L, Segmented Neutrophils 50, Band Neutrophils 6 H, Lymphocytes 20 L, Monocytes 23 H, Metamyelocytes 1, Platelet Estimate ADEQUATE, Polychromasia 1+, Poikilocytosis 1 +, Ovalocytes 1+, Fld Total RBCs Counted 100 03/14/18 0335: pH 7.42, pCO2 34 L, pO2 241 H, HCO3 22, ABG O2 Sat (Measured) 98.0, P-50 (Temp Corrected) Y, Carboxyhemoglobin 0.3 L, O2 Concentration % 100%, Temperature 96.6 L, Respiration Rate 20, O2 Delivery Method ESPRIT, Vent Mode AC, Expiratory Pressure 5, Tidal Volume 500, Phlebotomy Draw Site RIGHT RADIAL 03/14/18 0045: pH 7.13 *L, pCO2 84 *H, pO2 55 L, HCO3 27, ABG O2 Sat (Measured) 72.0 L, P-50 (Temp Corrected) Y, Carboxyhemoglobin 0.3 L, O2 Concentration % 100%, Temperature 99.5, Respiration Rate 24, O2 Delivery Method VISION-FFM, Vent Mode ST, Expiratory Pressure 4, Inspiratory Pressure 22, Phlebotomy Draw Site RIGHT RADIAL 03/13/18 2303: Anion Gap 13, Estimated GFR > 60, Glucose 145 H, Calcium 8.3 L, Phosphorus 4.3 , Magnesium 2.1, Total Bilirubin 0.7, AST 50, ALT 34, Albumin 3.2 L 03/13/18 2250: pH 7.13 *L, pCO2 88 *H, pO2 40 *L, HCO3 28, ABG O2 Sat (Measured) 51.0 L, Carboxyhemoglobin 0.5 L, O2 Concentration % 100%, Temperature 98.6, O2 Delivery Method NRB, Phlebotomy Draw Site RIGHT RADIAL 03/13/18 1900: APTT 56 H 03/13/18 1000: Sodium Cancelled, Potassium Cancelled, Chloride Cancelled, Carbon Dioxide Cancelled, Anion Gap Cancelled, BUN Cancelled, Creatinine Cancelled, Glucose Cancelled, Calcium Cancelled, Phosphorus Cancelled, Magnesium Cancelled, Total Bilirubin Cancelled, AST Cancelled, ALT Cancelled, Albumin Cancelled 03/13/18 0515: Anion Gap 12, Estimated GFR > 60, Glucose 95, Calcium 8.5, Phosphorus 3.1, Magnesium 1.8, Total Bilirubin 0.7, AST 38, ALT 33, Albumin 2.8 L, APTT 50 H, CBC w Diff MAN DIFF ORDERED, RBC 3.60 L, MCV 91.0, MCH 31.1 H, MCHC 34.1, RDW 14.6 H, MPV 10.9 H, Gran % 62.1, Lymphocytes % 16.9 L, Monocytes % 20.6 H, Eosinophils % 0.1, Basophils % 0.3, Absolute Granulocytes 6.1, Segmented Neutrophils 60, Band Neutrophils 8 H, Absolute Lymphocytes 1.7, Lymphocytes 18 L, Monocytes 13 H, Absolute Monocytes 2.0 H, Absolute Eosinophils 0, Absolute Basophils 0, Metamyelocytes 1, Platelet Estimate ADEQUATE, Normocytic RBCs VERIFIED, Polychromasia 1+ 03/12/18 2050: APTT 103 *H 03/12/18 1300: APTT Cancelled Recent Imaging Studies: Telemetry tracings were personally reviewed and show atrial fibrillation with controlled ventricular response rate Assessment/Plan Assessment/Plan 1. Seizure disorder/ecephalopathy 2. Atrial fibrillation, was not on chronic AC due to seizure disorder with refractory polysubstance abuse 3. Coronary artery disease status post CABG 4. Bioprosthetic aortic valve 5. Nonsustained wide complex tachycardia 6. Peripheral vascular disease 7. 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 polysubstance abuse, including cocaine 9. Hypertension 10. Hyperlipidemia 11. ?thrombocytopenia; improved 12. PNA Patient is status post SFA stent. Currently intubated. Continue anticoagulation with intravenous heparin. Continue IV Lopressor with monitoring for recurrent ventricular arrhythmias. Juan Magallon MD [facility] Continue telemetry? Yes
--- NOTE | 2018-03-14 11:39 | RADIOLOGY REPORT ---
EXAMINATION: XR PORTABLE CHEST CLINICAL INFORMATION: Endotracheal tube position. Pneumonia. COMPARISON: CXR from 03/14/2018 at 4:50 AM TECHNIQUE: Portable frontal view of the chest was obtained. FINDINGS: Endotracheal tube is located approximately 6 cm above the seven. The enteric tube extends along the esophagus, but the tip of the tube is not visualized on this chest radiograph. No pneumothorax or pneumomediastinum. No pulmonary edema. Persistent opacities in lung bases, possibly a combination of atelectasis and trace pleural effusions. However, pneumonia would have to be excluded on the basis of clinical criteria. No new pulmonary findings compared to the prior radiograph. IMPRESSION: 1. Endotracheal tube is located 6 cm above the seven. 2. Persistent opacities in lung bases.
[2018-03-14 12:00] VITALS: BP 120/80
[2018-03-14 13:11] LABS: PTT 60 SEC (25-37)
--- NOTE | 2018-03-14 13:34 | CT SCAN REPORT ---
EXAMINATION: CT HEAD WITHOUT CONTRAST CLINICAL INFORMATION: Unconscious. COMPARISON: Head CT from 02/20/2015 and 02/28/2018. TECHNIQUE: Contiguous axial imaging was performed from the skull base to vertex without intravenous administration of contrast. DLP: 1844 mGy-cm FINDINGS: Initial set of images of the head were degraded in quality by patient motion and were repeated. The patient is intubated. The brain parenchyma has normal attenuation. No cerebral edema or intracranial hemorrhage. The flores-white matter differentiation is well preserved. No acute major vascular territory infarction. Again noted is the area of cerebrospinal fluid attenuation within the left middle cranial fossa measuring up to approximately 5 cm transverse and 7 cm AP, consistent with arachnoid cyst, unchanged compared to 02/20/2015. There is no shifting of midline structures. The ventricles have normal caliber and configuration; no hydrocephalus. Mild atherosclerotic calcification of cavernous carotid arteries. The calvarium is intact. Minimal bilateral mastoid effusions are noted. Mild mucosal thickening of ethmoid air cells and sphenoid sinus. Layering secretions in the right sphenoid sinus and right maxillary sinus. IMPRESSION: No intracranial hemorrhage. No acute intracranial pathology compared to 02/28/2018.
--- NOTE | 2018-03-14 13:55 | PN- CRCU ---
Subjective HPI/Critical Care Issues: Events and data from overnight reviewed I did get a phone call last night from [facility] but was disconnected immediately when I picked up. Nobody did reattempt a call back unfortunately last night. There was no text messages. house player was advised to text message or to recall again or call my answering service in case of in case of cell phone malfunction. Patient is now intubated. It appears that patient had received multiple medications for aggressive delirium and patient became hypercarbic. At the same time he was hypotensive and did receive IV fluids. Subsequent intubation he did seem to have done well now on 40%. But he does have significant secretions. He has been pancultured. Continues to be agitated. Does not have any fever. No other history could be obtained. Patient did get surgery yesterday apparently postsurgical neurological evaluation was unremarkable. No seizure noted. Patient did have a CT scan of the chest this morning which showed no acute intracranial pathology Medications reviewed continues to be on heparin needs to be on Plavix and on IV fluids. There was no significant arrhythmia noted. He continues to have a regular rhythm months 86 bpm. Objective Current Medications: Current Medications Sig/Louise Start time Last Medication Dose Route Stop Time Status Admin Acetaminophen 1,000 MG Q6P PRN 03/11 1415 AC 03/13 N/A 1 UNIT IV 0113 Apixaban 5 MG BID 03/14 0900 DC PO Atorvastatin Calcium 40 MG 1700 03/01 1700 AC 03/07 PO 1800 Clopidogrel Bisulfate 75 MG DAILY 03/14 0900 AC PO Dextrose/Lactated 1,000 ML Q24 03/12 1053 AC 03/14 Ringer's IV 1158 Diphenhydramine HCl 50 MG Q8P PRN 03/09 1415 DC 03/13 IM 1820 Docusate Sodium 100 MG DAILY NEEDED 03/02 0930 AC 03/02 PO 1057 Haloperidol 1 MG Q8P PRN 03/09 1415 AC 03/13 IM 1821 Heparin Sodium 25,000 UNIT Q24H 03/14 1200 AC 03/14 (Porcine) IV 1152 Sodium Chloride 500 ML Heparin Sodium 3,840 UNIT Q8 03/14 0600 DC (Porcine) SC Heparin Sodium 3,840 UNIT ONCE ONE 03/13 2230 DC 03/13 (Porcine) IV 03/13 223 2252 Heparin Sodium 25,000 UNIT Q24H 03/05 1615 DC 03/13 (Porcine) IV 03/14 0859 1822 Sodium Chloride 500 ML Hydromorphone HCl 1 MG ONCE ONE 03/13 1515 GA 03/13 IV 03/13 1516 1514 Hydromorphone HCl 2 MG ONCE PRN 03/08 0300 AC 03/13 IV 2216 Levetiracetam 500 MG Q12 03/12 2100 03/14 N/A 1 UNIT IV 03/14 1400 0931 Lorazepam 1 MG Q2 HRS NEEDED PRN 03/14 1130 AC 03/14 IV 1348 Lorazepam 1 MG ONCE ONE 03/14 1130 DC 03/14 IV 03/14 1131 1144 Lorazepam 1 MG Q6P PRN 03/14 1100 DC 03/14 IV 1112 Lorazepam 1 MG Q8 03/09 1516 GA 03/13 IV 2118 Lorazepam 2 MG Q4 PRN 03/08 0200 GA 03/13 IV 2215 Magnesium Sulfate 1 GM ONCE ONE 03/14 1200 AC 03/14 Dextrose/Water 100 ML IV 03/14 1559 1157 Magnesium Sulfate 1 GM ONCE ONE 03/13 1345 GA 03/13 Dextrose/Water 100 ML IV 03/13 1744 1454 Metoprolol Tartrate 5 MG Q6 03/08 1200 AC 03/14 IV 1158 Pantoprazole Sodium 40 MG DAILY 03/08 1045 03/14 IV 0931 Polyethylene Glycol 17 GM DAILY PRN 03/02 0930 03/03 PO 0839 Senna 187 MG AT BEDTIME PRN 03/02 0930 03/02 PO 1057 Sodium Chloride 1,000 ML BOLUS ONE 03/14 06 DC 03/14 IV 03/14 0659 0600 Sodium Chloride 1,000 ML BOLUS ONE 03/14 0345 DC 03/14 IV 03/14 0444 0411 Sodium Chloride 1,000 ML BOLUS ONE 03/14 0230 DC 03/14 IV 03/14 0329 0229 Sodium Chloride 1,000 ML Q8H 03/14 0215 03/14 IV 0500 Valproate Sodium 1,000 MG Q12H 03/08 1200 AC 03/14 Sodium Chloride 100 ML IV 1308 Vitamin A/Vitamin D 1 YOKO BID 03/12 1515 03/14 TOP 0931 Vital Signs & I&O Last 24 Hrs of Vitals and I&O: Vital Signs Date Time Temp Pulse Resp B/P B/P Pulse O2 O2 Flow FiO2 Mean Ox Delivery Rate 03/14 1158 86 128/80 03/14 1139 40 03/14 0816 60 03/14 08 100 Ventilator 60% 03/14 08 96.8 74 20 110/80 100 Ventilator 60% 03/14 0620 70 03/14 0507 81 90/77 03/14 0405 70 03/14 0404 100 03/14 0400 100 Ventilator 70% 03/14 0153 100 03/14 0050 91 61 03/14 0000 100 BIPAP 100% 03/13 2323 63 94 03/13 2311 104 106/76 03/13 2300 98.7 74 36 90/60 100 BIPAP 100% 03/13 2000 91 Nasal 2.0L Cannula 03/13 1821 108 133/93 03/13 1600 98.4 88 20 140/62 95 Nasal 2.0L Cannula 03/13 1600 95 Nasal 2.0L Cannula Intake & Output 03/14 1600 03/14 0800 03/14 0000 Intake Total 2842 412 Output Total 150 450 Balance 2692 -38 Intake, IV 2842 412 Intake, Oral 0 0 Output, Urine 150 450 Impression/Plan Impression/Plan Impression/Plan: Still has sig delirium СЕРГЕЙ,On restraints and intubated Eomi Chest clear cvs aure, afib abd soft No edema Fracture left Ue Pupils small Agitated This is a 67-year-old gentleman with history of hypertension, hyperlipidemia, CABG, previous bovine aortic valve replacement, previous history of Hodgkin's lymphoma in the late with previous chemoradiation therapy leading to significant neuropathy, significant medical marijuana usage, alcohol use on and off, multiple surgeries and chronic pain, previous seizure disorder started in 2014 and since then followed by [facility] seizure clinic (compliant) here with encephelopathy multifactorial (not having any seizures) * Hypercarbic respiratory failure with transient hypoxemia and hypotension last night probably multifactorial. Due to severe delirium he had to be medicated and that may have also precipitated his hypercarbia. As he was probably unable to maintain his airway is now intubated. Does seem to have significant secretions. He has bilateral basilar atelectasis. No clinical evidence suggestive of pneumonia. * Sig encephelopathy -with delirium with prior seizure now on appropriate medication. He does have chronic issues as noted from before including a chronic arachnoid cyst, polysubstance use, alcohol use, small vessel ischemia etc. Since admission he has had severe delirium which has been unable to be treated. He has been tried on several medications. Neurology did recommend continuing these medications. 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) s/p surg with stent on 03/13 * Stable Thrombocytopenia - HIT neg now back on heparin * Significant alcohol use by history with probable dts, Marijuana, sig cocaine in the urine upon admission * Sig Heart disease with previous CABG and aortic valve replacement with bioprosthetic valve with previous arrythmia, now in pafib * Previous history of nephrolithiasis, now with john (improving) * Nasal fracture and displaced transcondylar fracture of distal left humerus, conservative rx per ortho * 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
[2018-03-14 16:00] VITALS: BP 120/78
[2018-03-14 20:48] LABS: PTT 72 SEC (25-37)
[2018-03-15] VITALS: BP 136/80
[2018-03-15 05:19] LABS: ABSOLUTE BASOPHIL COUNT 0 /CUMM (0.0-0.2); ABSOLUTE EOSINOPHIL COUNT 0 /CUMM (0.0-0.7); ABSOLUTE GRANULOCYTE CT 6.6 /CUMM (1.4-6.5); ABSOLUTE LYMPH COUNT 1.9 /CUMM (1.2-3.4); ABSOLUTE MONOCYTE COUNT 3.2 /CUMM (0.10-0.60); BASOPHIL % 0.2 % (0.0-2.0); EOSINOPHIL % 0.1 % (0-5); GRANULOCYTE % 56.2 % (42.2-75.2); HEMATOCRIT 28.6 % (42-52); MEAN CORPUSCULAR HGB 30.5 PG (27.0-31.0); MEAN CORPUSCULAR HGB CONC 33.3 G/DL (33.0-37.0); MEAN CORPUSCULAR VOLUME 91.7 FL (80.0-94.0); MEAN PLATELET VOLUME 9.9 FL (7.4-10.4); PLATELET COUNT 187 /CUMM (130-400); RED BLOOD CELL CT 3.12 /CUMM (4.70-6.10); WHITE BLOOD CELL COUNT 11.7 /CUMM (4.8-10.8)
--- NOTE | 2018-03-15 07:12 | PN- Resident CRCU ---
Subjective HPI/CRCU Issues: Chronic hypoxic and hypercapnic respiratory failure. Seizure disorder Toxic metabolic encephalopathy Peripheral vascular disease s/p stent placement History of A. fib Left nondisplaced transcondylar humerus fracture s/p splint. Diarrhea s/p rectal tube placement. 24 Hour Events: No overnight events. Patient was agitated one time and he was given Ativan last night. His blood pressure was on the lower side 96/60. Patient remained intubated and he was responding to painful stimuli and has purposeful movements when I saw the patient this morning. We will place PICC line considering difficulty to draw blood from peripheral line. Objective Vital Signs & I&O Last 8 Hrs of Vitals and I&O: temp 96.9, pulse 73, r/r 18, bp 113/62, o2 sat 98 Exam General Appearance: well developed/nourished, no apparent distress, intubated Head: atraumatic, normal appearance Neck: normal inspection Respiratory: intubated Cardiovascular: regular rate/rhythm Gastrointestinal: normal bowel sounds, soft Extremities: Grade 1 b/l pedal edema Skin Temp/Moisture Exam: Warm/Dry Current Medications: Current Medications Sig/Louise Start time Last Medication Dose Route Stop Time Status Admin Acetaminophen 1,000 MG Q6P PRN 03/11 1415 AC 03/13 N/A 1 UNIT IV 0113 Atorvastatin Calcium 40 MG 1700 03/01 1700 AC 03/15 PO 1756 Clopidogrel Bisulfate 75 MG DAILY 03/14 0900 AC 03/15 PO 0950 Dexmedetomidine HCl 400 MCG Q14H 03/15 1430 AC 03/16 Sodium Chloride 96 ML IV 0438 Dexmedetomidine HCl 400 MCG Q20H 03/14 1500 DC 03/15 Sodium Chloride 96 ML IV 0649 Dextrose/Lactated 1,000 ML Q13H 03/15 0930 AC 03/16 Ringer's IV 0034 Dextrose/Lactated 1,000 ML Q10H 03/14 1430 DC 03/14 Ringer's IV 2330 Docusate Sodium 100 MG DAILY NEEDED 03/02 0930 AC 03/02 PO 1057 Haloperidol 0.5 MG Q8 03/15 0944 AC 03/15 IM 03/16 1000 2200 Heparin Sodium 25,000 UNIT Q24H / 1200 AC 03/15 (Porcine) IV 1449 Sodium Chloride 500 ML Levetiracetam 500 MG Q12 03/12 2100 AC 03/15 N/A 1 UNIT IV 03/16 0700 2045 Lorazepam 0.5 MG ONCE ONE 03/15 1145 DC 03/15 IV 03/15 1146 1145 Lorazepam 1 MG Q2 HRS NEEDED PRN 03/14 1130 AC 03/15 IV 0407 Magnesium Oxide 400 MG ONE ONE 03/15 0715 DC 03/15 PO 03/15 0716 0921 Magnesium Sulfate 1 GM ONCE ONE 03/15 0945 DC 03/15 Dextrose/Water 100 ML IV 03/15 1344 1027 Metoprolol Tartrate 5 MG Q6 03/08 1200 AC 03/16 IV 0013 Morphine Sulfate 2 MG Q2P PRN 03/14 1415 AC IV Pantoprazole Sodium 40 MG DAILY 03/08 1045 AC 03/15 IV 0921 Polyethylene Glycol 17 GM DAILY PRN 03/02 0930 AC 03/03 PO 0839 Potassium Chloride 40 MEQ ONCE ONE 03/15 0600 DC 03/15 PO 03/15 0601 0602 Senna 187 MG AT BEDTIME PRN 03/02 0930 AC 03/02 PO 1057 Valproate Sodium 1,000 MG Q12H 03/08 1200 AC 03/16 Sodium Chloride 100 ML IV 0031 Vitamin A/Vitamin D 1 YOKO BID 03/12 1515 AC 03/15 TOP 2044 Impression/Plan Impression/Problem List Impression: 67 y/o M with PMH of chronic seizure disorder on valproate, CAD s/p CABG and bovine aortic valve replacement in 2013, Hodgkins lymphoma, HTN and HLD that was brought to the ED after he was found to be unresponsive. Patient was found to have possible metabolic toxic encephalopathy due to seizures or cocaine abuse. Patient had acute respiratory failure and he was intubated and he was extubated successfully on 03/08. Patient was found to have superficial femoral artery occlusion status post stent placement on 03/13. Patient is on IV heparin due to his atrial fibrillation. Chronic hypoxic and hypercapnic respiratory failure: -Could be multifactorial but possibly due to oversedation as patient was on multiple medications that can oversedate him. patient was not able maintain the airway. -Continue intubation and ventilation. We will try to extubate him tomorrow. We will keep sedation minimum. -His CT scan had remained negative for bleed. -Continue Ativan 1 mg 2 hourly and continue precedex 400 mcg. Seizure disorder: -Patient's urine was positive for cocaine and cannabis. His seizure could be due to cocaine abuse. Could be due to alcohol abuse. -Continue IV Keppra and valproic acid -Seizure precautions. Toxic metabolic encephalopathy: -Possibly due to seizure activity, hypoxia, cocaine use, polysubstance abuse or could be due to pneumonia. -Continue supportive care -Patient completed 7 days of Augmentin and he is off antibiotics now. -We will continue monitoring his mental status level. -Continue Ativan 1 mg every 2 hourly for sedation. -Seizure precautions. -We will choose Haldol 0.5 mg every 8 hourly for 24 hours. We started Haldol as his QTC decreased to 477. PEPPER: -Possibly due to dehydration. -We will follow BUN and creatinine level -Avoid nephrotoxins medications -Gentle hydration Diarrhea: -Patient developed diarrhea last night and rectal tube was placed. -We will follow C. difficile results -We will repleting magnesium and potassium. -Today his potassium was 3.2 and it was repleted. His magnesium was 1.9 that was repleted. Peripheral vascular disease: -Right superficial femoral artery occlusion status post stent placement. -Stent placement was done today for acute limb ischemia. -Continue Plavix. -We will follow vascular surgery recommendations. History of A. fib: -Patient was placed on IV heparin for anticoagulation to prevent stroke. We will continue IV heparin per. -Continue IV metoprolol 5 mg every 6 hourly. -We'll follow cardiology recommendations. Left nondisplaced transcondylar humerus fracture: -We will continue left arm splint and managed conservatively. -Pain medication according to pain pathway. -Ice packing as needed around elbow. DVT prophylaxis: Mechanical and patient is already on IV heparin CODE STATUS: DNR. Patient's as discussion with Dr. Lewis about patient's CODE STATUS. wants DNR/DNI after we extubated the patient. Problem List: 1. Chronic respiratory failure with hypoxia and hypercapnia 2. Atrial fibrillation 3. Arterial occlusion 4. Seizure 5. Metabolic encephalopathy Pain Ratin Tomorrow's Labs & Rationales: cbc/icu bundle Plan Respiratory: Patient is on ventilator and intubated. Patient is on tidal volume 500, respiratory rate 20, PEEP 5, peak flow 70. Patient is hemodynamically stable. DVT/Prophylaxis: mechanical, pharmacological
--- NOTE | 2018-03-15 07:53 | RADIOLOGY REPORT ---
EXAMINATION: XR PORTABLE CHEST CLINICAL INFORMATION: Endotracheal tube evaluation COMPARISON: Chest x-ray 03/14/2018 TECHNIQUE: Portable frontal view of the chest was obtained. FINDINGS: Stable positioning of endotracheal tube terminating approximately 7 cm above the level of the seven. The enteric tube is only visualized to the level of the seven and the obscured beyond this and therefore its position cannot be accurately evaluated. Lung volumes remain low. Minimal bibasilar opacities, nonspecific but slightly improved. No lobar consolidation. No large pleural effusion. Cardiac silhouette is unchanged. IMPRESSION: Stable positioning of endotracheal tube with mild interval improvement of bibasilar opacities.
[2018-03-15 08:00] VITALS: BP 90/60
--- NOTE | 2018-03-15 09:17 | PN- CRCU ---
Subjective HPI/Critical Care Issues: Doing about the same Awake on precedex and follows commands but still obtunded Diarrhea now with rectal tube Renal fuction slight improvement On 0.3 fio2 On AC Objective Current Medications: Current Medications Sig/Louise Start time Last Medication Dose Route Stop Time Status Admin Acetaminophen 1,000 MG Q6P PRN 03/11 1415 AC 03/13 N/A 1 UNIT IV 0113 Apixaban 5 MG BID 03/14 09 DC PO Atorvastatin Calcium 40 MG 1700 03/01 1700 AC 03/14 PO 1709 Clopidogrel Bisulfate 75 MG DAILY 03/14 09 AC 03/14 PO 1353 Dexmedetomidine HCl 400 MCG Q14H 03/15 2100 AC Sodium Chloride 96 ML IV Dexmedetomidine HCl 400 MCG Q20H 03/14 1500 DC 03/15 Sodium Chloride 96 ML IV 0649 Dextrose/Lactated 1,000 ML Q10H 03/14 1430 AC 03/14 Ringer's IV 2330 Dextrose/Lactated 1,000 ML Q24 03/12 1053 DC 03/14 Ringer's IV 1158 Diphenhydramine HCl 50 MG Q8P PRN 03/09 1415 DC 03/13 IM 1820 Docusate Sodium 100 MG DAILY NEEDED 03/02 0930 AC 03/02 PO 1057 Haloperidol 1 MG Q8P PRN 03/09 1415 DC 03/13 IM 1821 Heparin Sodium 25,000 UNIT Q24H 03/14 1200 AC 03/15 (Porcine) IV 0335 Sodium Chloride 500 ML Hydromorphone HCl 2 MG ONCE PRN 03/08 0300 DC 03/13 IV 2216 Levetiracetam 500 MG Q12 03/12 2100 AC 03/14 N/A 1 UNIT IV 03/16 07 2145 Lorazepam 1 MG Q2 HRS NEEDED PRN 03/14 1130 AC 03/15 IV 0407 Lorazepam 1 MG ONCE ONE 03/14 1130 DC 03/14 IV 03/14 1131 1144 Lorazepam 1 MG Q6P PRN 03/14 1100 DC 03/14 IV 1112 Lorazepam 1 MG Q8 03/09 1516 DC 03/13 IV 2118 Lorazepam 2 MG Q4 PRN 03/08 0200 DC 03/13 IV 2215 Magnesium Oxide 400 MG ONE ONE 03/15 0715 DC PO 03/15 0716 Magnesium Sulfate 1 GM ONCE ONE 03/14 1200 DC 03/14 Dextrose/Water 100 ML IV 03/14 1559 1157 Metoprolol Tartrate 5 MG Q6 03/08 1200 AC 03/14 IV 2330 Morphine Sulfate 2 MG Q2P PRN 03/14 1415 AC IV Non-Formulary 0 SEE ADMIN CRITERIA 03/14 1445 CAN Medication ANY Pantoprazole Sodium 40 MG DAILY 03/08 1045 AC 03/14 IV 0931 Polyethylene Glycol 17 GM DAILY PRN 03/02 0930 AC 03/03 PO 0839 Potassium Chloride 40 MEQ ONCE ONE 03/15 06 DC 03/15 PO 03/15 0601 0602 Senna 187 MG AT BEDTIME PRN 03/02 0930 AC 03/02 PO 1057 Sodium Chloride 1,000 ML Q8H 03/14 0215 DC 03/14 IV 0500 Valproate Sodium 1,000 MG Q12H 03/08 1200 AC 03/14 Sodium Chloride 100 ML IV 2330 Vitamin A/Vitamin D 1 YOKO BID 03/12 1515 03/14 TOP 2145 Vital Signs & I&O Last 24 Hrs of Vitals and I&O: Vital Signs Date Time Temp Pulse Resp B/P B/P Pulse O2 O2 Flow FiO2 Mean Ox Delivery Rate / 0810 30 03/15 0800 100 Ventilator 30% 03/15 0800 97.2 78 20 90/60 100 Ventilator 03/15 0602 73 83/63 08/02 0553 30 03/15 0400 100 Ventilator 30% 03/15 0355 30 03/15 0116 30 03/15 0000 100 Ventilator 30% 03/15 0000 98.6 85 21 136/80 100 Ventilator 30% 03/14 2330 97 135/81 08/01 2224 30 03/14 2000 100 Ventilator 30% 03/14 1920 30 03/14 1625 35 08/ 1600 95 Ventilator 35% 03/14 1600 98.4 94 20 120/78 95 Ventilator 35% 03/14 1438 35 08 1200 99 Ventilator 40% 03/14 1200 98.4 102 20 120/80 99 Ventilator 40% 08 1158 86 128/80 08/01 1139 40 Intake & Output / 1600 08/02 0800 08/02 0000 Intake Total 1549 1278 Output Total 220 200 Balance 1329 1078 Intake, IV 1089 998 Intake, Oral 0 0 Intake, Tube 160 120 Feeding Intake, Tube 300 160 Irrigant Number 1 1 Bowel Movements Output, Urine 220 200 Laboratory Tests 03/15 03/15 03/14 0810 0414 1900 Blood Gas pH (7.35 - 7.45 PH) 7.49 H pCO2 (35 - 45 TORR) 30 L pO2 (80 - 100 TORR) 93 HCO3 (21 - 28 MEQ/L) 22 ABG O2 Sat (Measured) (>96.0 %) 97.0 Carboxyhemoglobin (1.5 - 5.0 %) 0.3 L O2 Concentration % 30% Respiration Rate (BPM) 20 O2 Delivery Method ESPIRT Vent Mode AC Expiratory Pressure (CMH2O/P) 5 Tidal Volume (CC) 500 Chemistry Sodium (137 - 145 mmol/L) 141 Potassium (3.5 - 5.1 mmol/L) 3.2 L Chloride (98 - 107 mmol/L) 111 H Carbon Dioxide (22 - 30 mmol/L) 23 Anion Gap (5 - 16) 6 BUN (9 - 20 mg/dL) 14 Creatinine (0.7 - 1.2 mg/dL) 1.4 H Estimated GFR (>60 ml/min) 50 L Glucose (65 - 99 mg/dL) 123 H Calcium (8.4 - 10.2 mg/dL) 7.7 L Phosphorus (2.5 - 4.5 mg/dL) 2.9 Magnesium (1.6 - 2.3 mg/dL) 1.9 Total Bilirubin (0.2 - 1.3 mg/dL) 0.5 AST (17 - 59 U/L) 27 ALT (21 - 72 U/L) 31 Albumin (3.5 - 5.0 g/dL) 2.5 L Coagulation APTT (25 - 37 SEC) 72 H Hematology CBC w Diff MAN DIFF ORDERED WBC (4.8 - 10.8 /CUMM) 11.7 H RBC (4.70 - 6.10 /CUMM) 3.12 L Hgb (14.0 - 18.0 G/DL) 9.5 L Hct (42 - 52 %) 28.6 L MCV (80.0 - 94.0 FL) 91.7 MCH (27.0 - 31.0 PG) 30.5 MCHC (33.0 - 37.0 G/DL) 33.3 RDW (11.5 - 14.5 %) 15.0 H Plt Count (130 - 400 /CUMM) 187 MPV (7.4 - 10.4 FL) 9.9 Gran % (42.2 - 75.2 %) 56.2 Lymphocytes % (20.5 - 51.1 %) 16.0 L Monocytes % (1.7 - 9.3 %) 27.5 H Eosinophils % (0 - 5 %) 0.1 Basophils % (0.0 - 2.0 %) 0.2 Absolute Granulocytes (1.4 - 6.5 /CUMM) 6.6 H Segmented Neutrophils (42.2 - 75.2 %) 65 Band Neutrophils (0.0 - 5.0 %) 5 Absolute Lymphocytes (1.2 - 3.4 /CUMM) 1.9 Lymphocytes (20.5 - 51.1 %) 13 L Monocytes (1.7 - 9.3 %) 15 H Absolute Monocytes (0.10 - 0.60 /CUMM) 3.2 H Absolute Eosinophils (0.0 - 0.7 /CUMM) 0 Absolute Basophils (0.0 - 0.2 /CUMM) 0 Metamyelocytes (0.0 - 1.0 %) 2 H Platelet Estimate (ADEQUATE) ADEQUATE Normocytic RBCs VERIFIED Polychromasia 1+ Miscellaneous Phlebotomy Draw Site RIGHT RADIAL 03/14 03/14 03/14 03/14 1210 0834 0730 0429 Chemistry Lactic Acid (0.7 - 2.1 mmol/L) 1.2 Cancelled 2.3 H Coagulation APTT (25 - 37 SEC) 60 H 03/14 03/14 0429 0335 Blood Gas pH (7.35 - 7.45 PH) 7.42 pCO2 (35 - 45 TORR) 34 L pO2 (80 - 100 TORR) 241 H HCO3 (21 - 28 MEQ/L) 22 ABG O2 Sat (Measured) (>96.0 %) 98.0 P-50 (Temp Corrected) Y Carboxyhemoglobin (1.5 - 5.0 %) 0.3 L O2 Concentration % 100% Temperature (97.0 - 100.0 FARH) 96.6 L Respiration Rate (BPM) 20 O2 Delivery Method ESPRIT Vent Mode AC Expiratory Pressure (CMH2O/P) 5 Tidal Volume (CC) 500 Chemistry Sodium (137 - 145 mmol/L) 147 H Potassium (3.5 - 5.1 mmol/L) 4.2 Chloride (98 - 107 mmol/L) 110 H Carbon Dioxide (22 - 30 mmol/L) 25 Anion Gap (5 - 16) 12 BUN (9 - 20 mg/dL) 12 Creatinine (0.7 - 1.2 mg/dL) 1.5 H Estimated GFR (>60 ml/min) 46 L Glucose (65 - 99 mg/dL) 88 Calcium (8.4 - 10.2 mg/dL) 7.8 L Phosphorus (2.5 - 4.5 mg/dL) 5.2 H Magnesium (1.6 - 2.3 mg/dL) 1.9 Total Bilirubin (0.2 - 1.3 mg/dL) 0.5 AST (17 - 59 U/L) 38 ALT (21 - 72 U/L) 30 Troponin I (<0.11 ng/ml) 0.04 Albumin (3.5 - 5.0 g/dL) 2.5 L Coagulation APTT (25 - 37 SEC) > 120 *H Hematology CBC w Diff MAN DIFF ORDERED WBC (4.8 - 10.8 /CUMM) 11.5 H RBC (4.70 - 6.10 /CUMM) 3.36 L Hgb (14.0 - 18.0 G/DL) 10.4 L Hct (42 - 52 %) 31.2 L MCV (80.0 - 94.0 FL) 92.9 MCH (27.0 - 31.0 PG) 31.0 MCHC (33.0 - 37.0 G/DL) 33.4 RDW (11.5 - 14.5 %) 15.3 H Plt Count (130 - 400 /CUMM) 203 MPV (7.4 - 10.4 FL) 9.7 Lymphocytes % (20.5 - 51.1 %) 7.7 L Segmented Neutrophils (42.2 - 75.2 %) 50 Band Neutrophils (0.0 - 5.0 %) 6 H Lymphocytes (20.5 - 51.1 %) 20 L Monocytes (1.7 - 9.3 %) 23 H Metamyelocytes (0.0 - 1.0 %) 1 Platelet Estimate (ADEQUATE) ADEQUATE Polychromasia 1+ Poikilocytosis 1+ Ovalocytes 1+ Miscellaneous Phlebotomy Draw Site RIGHT RADIAL Other Body Source Fld Total RBCs Counted (%) 100 0803/13 0045 2303 2250 1900 Blood Gas pH (7.35 - 7.45 PH) 7.13 *L 7.13 *L pCO2 (35 - 45 TORR) 84 *H 88 *H pO2 (80 - 100 TORR) 55 L 40 *L HCO3 (21 - 28 MEQ/L) 27 28 ABG O2 Sat (Measured) (>96.0 %) 72.0 L 51.0 L P-50 (Temp Corrected) Y Carboxyhemoglobin (1.5 - 5.0 %) 0.3 L 0.5 L O2 Concentration % 100% 100% Temperature (97.0 - 100.0 FARH) 99.5 98.6 Respiration Rate (BPM) 24 O2 Delivery Method VISION-FFM NRB Vent Mode ST Expiratory Pressure (CM H2O P) 4 Inspiratory Pressure (CM H2O P) 22 Chemistry Sodium (137 - 145 mmol/L) 144 Potassium (3.5 - 5.1 mmol/L) 4.1 Chloride (98 - 107 mmol/L) 106 Carbon Dioxide (22 - 30 mmol/L) 26 Anion Gap (5 - 16) 13 BUN (9 - 20 mg/dL) 12 Creatinine (0.7 - 1.2 mg/dL) 1.1 Estimated GFR (>60 ml/min) > 60 Glucose (65 - 99 mg/dL) 145 H Calcium (8.4 - 10.2 mg/dL) 8.3 L Phosphorus (2.5 - 4.5 mg/dL) 4.3 Magnesium (1.6 - 2.3 mg/dL) 2.1 Total Bilirubin (0.2 - 1.3 mg/dL) 0.7 AST (17 - 59 U/L) 50 ALT (21 - 72 U/L) 34 Albumin (3.5 - 5.0 g/dL) 3.2 L Coagulation APTT (25 - 37 SEC) 56 H Miscellaneous Phlebotomy Draw Site RIGHT RADIAL RIGHT RADIAL 03/13 UNK Chemistry Sodium Cancelled Potassium Cancelled Chloride Cancelled Carbon Dioxide Cancelled Anion Gap Cancelled BUN Cancelled Creatinine Cancelled Glucose Cancelled Calcium Cancelled Phosphorus Cancelled Magnesium Cancelled Total Bilirubin Cancelled AST Cancelled ALT Cancelled Albumin Cancelled Microbiology Date/Time Procedure - Status Source Growth 03/15 0708 Clostridium difficile Toxin A & B - ORD STOOL 03/14 1445 Respiratory Culture - RES LOWER RESP 03/14 1445 Gram Stain - RES LOWER RESP 03/14 0630 Blood Culture - RECD BLOOD 03/14 0615 Blood Culture - RECD BLOOD Impression/Plan Impression/Plan Impression/Plan: СЕРГЕЙ,On restraints and intubated Eomi Chest clear cvs aure, afib abd soft No edema Fracture left Ue Pupils small Agitated but follows commands on precedex This is a 67-year-old gentleman with history of hypertension, hyperlipidemia, CABG, previous bovine aortic valve replacement, previous history of Hodgkin's lymphoma in the late with previous chemoradiation therapy leading to significant neuropathy, significant medical marijuana usage, alcohol use on and off, multiple surgeries and chronic pain, previous seizure disorder started in 2014 and since then followed by [facility] seizure [facility] (compliant) here with encephelopathy multifactorial (not having any seizures) * Chronic resp failure due to inability to maintain his airway due to severe encephelopathy. S/p rx for polymicrobial pna * Sig encephelopathy -with delirium with prior seizure now on appropriate medication. He does have chronic issues as noted from before including a chronic arachnoid cyst, polysubstance use, alcohol use, sig cocaine use and small vessel ischemia etc. Since admission he has had severe delirium which has been unable to be treated. He has been tried on several medications. Neurology did recommend continuing these medications. 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 (appears chronic by CT) s/p surg with stent on 03/13 * Stable Thrombocytopenia - HIT neg now back on heparin * Significant alcohol use by history with probable dts, Marijuana, sig cocaine in the urine upon admission * Sig Heart disease with previous CABG and aortic valve replacement with bioprosthetic valve with previous arrythmia, now in pafib * Previous history of nephrolithiasis, now with john (improving) * Nasal fracture and displaced transcondylar fracture of distal left humerus, conservative rx per ortho * 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
--- NOTE | 2018-03-15 09:22 | PN- Cardiology ---
Subjective Subjective: Remains intubated. Atrial fibrillation with controlled ventricular response. No tachyarrhythmia. Objective Vital Signs and I&Os Vital Signs Date Time Temp Pulse Resp B/P B/P Pulse O2 O2 Flow FiO2 Mean Ox Delivery Rate 03/15 0810 30 03/15 0800 100 Ventilator 30% 03/15 0800 97.2 78 20 90/60 100 Ventilator 03/15 0602 73 83/63 08/ 0553 30 03/15 0400 100 Ventilator 30% 03/15 0355 30 03/15 0116 30 03/15 0000 100 Ventilator 30% 08 0000 98.6 85 21 136/80 100 Ventilator 30% 03/14 2330 97 135/81 08/ 2224 30 08 2000 100 Ventilator 30% 03/14 1920 30 08 1625 35 08/ 1600 95 Ventilator 35% 03/14 1600 98.4 94 20 120/78 95 Ventilator 35% 03/14 1438 35 08/ 1200 99 Ventilator 40% 03/14 1200 98.4 102 20 120/80 99 Ventilator 40% 03/14 1158 86 128/80 08/ 1139 40 Intake & Output 03/15 1600 / 0800 / 0000 08/ 1600 03/14 0800 08/ 0000 Intake Total 1549 1278 1262 2842 412 Output Total 220 200 200 150 450 Balance 1329 1078 1062 2692 -38 Intake, IV 1440 313 3030 2842 412 Intake, Oral 0 0 0 0 0 Intake, Tube 160 120 Feeding Intake, Tube 300 160 100 Irrigant Number 1 1 0 Bowel Movements Output, Urine 220 200 200 150 450 Physical Exam: Patient remains intubated. Head normocephalic atraumatic Eyes sclera anicteric conjunctiva showed no pallor Neck no jugular venous distention Lungs equal air entry bilaterally Heart irregular rhythm with a ventricular rate around 94 abdomen soft . Extremities poor pedal pulses Results Last 48 Hrs of Labs/Mics: Laboratory Tests 03/15/18 0810: pH 7.49 H, pCO2 30 L, pO2 93, HCO3 22, ABG O2 Sat (Measured) 97.0, Carboxyhemoglobin 0.3 L, O2 Concentration % 30%, Respiration Rate 20, O2 Delivery Method ESPIRT, Vent Mode AC, Expiratory Pressure 5, Tidal Volume 500, Phlebotomy Draw Site RIGHT RADIAL 03/15/18 0414: Anion Gap 6, Estimated GFR 50 L, Glucose 123 H, Calcium 7.7 L, Phosphorus 2.9 , Magnesium 1.9, Total Bilirubin 0.5, AST 27, ALT 31, Albumin 2.5 L, CBC w Diff MAN DIFF ORDERED, RBC 3.12 L, MCV 91.7, MCH 30.5, MCHC 33.3, RDW 15.0 H, MPV 9.9, Gran % 56.2, Lymphocytes % 16.0 L, Monocytes % 27.5 H, Eosinophils % 0.1, Basophils % 0.2, Absolute Granulocytes 6.6 H, Segmented Neutrophils 65, Band Neutrophils 5, Absolute Lymphocytes 1.9, Lymphocytes 13 L, Monocytes 15 H, Absolute Monocytes 3.2 H, Absolute Eosinophils 0, Absolute Basophils 0, Metamyelocytes 2 H, Platelet Estimate ADEQUATE, Normocytic RBCs VERIFIED, Polychromasia 1+ 03/14/18 1900: APTT 72 H 03/14/18 1210: APTT 60 H 03/14/18 0834: Lactic Acid 1.2 03/14/18 0730: Lactic Acid Cancelled 03/14/18 0429: Lactic Acid 2.3 H 03/14/18 0429: Anion Gap 12, Estimated GFR 46 L, Glucose 88, Calcium 7.8 L, Phosphorus 5.2 H , Magnesium 1.9, Total Bilirubin 0.5, AST 38, ALT 30, Troponin I 0.04, Albumin 2.5 L, APTT > 120 *H, CBC w Diff MAN DIFF ORDERED, RBC 3.36 L, MCV 92.9, MCH 31.0, MCHC 33.4, RDW 15.3 H, MPV 9.7, Lymphocytes % 7.7 L, Segmented Neutrophils 50, Band Neutrophils 6 H, Lymphocytes 20 L, Monocytes 23 H, Metamyelocytes 1, Platelet Estimate ADEQUATE, Polychromasia 1+, Poikilocytosis 1 +, Ovalocytes 1+, Fld Total RBCs Counted 100 03/14/18 033: pH 7.42, pCO2 34 L, pO2 241 H, HCO3 22, ABG O2 Sat (Measured) 98.0, P-50 (Temp Corrected) Y, Carboxyhemoglobin 0.3 L, O2 Concentration % 100%, Temperature 96.6 L, Respiration Rate 20, O2 Delivery Method ESPRIT, Vent Mode AC, Expiratory Pressure 5, Tidal Volume 500, Phlebotomy Draw Site RIGHT RADIAL 03/14/18 0045: pH 7.13 *L, pCO2 84 *H, pO2 55 L, HCO3 27, ABG O2 Sat (Measured) 72.0 L, P-50 (Temp Corrected) Y, Carboxyhemoglobin 0.3 L, O2 Concentration % 100%, Temperature 99.5, Respiration Rate 24, O2 Delivery Method VISION-FFM, Vent Mode ST, Expiratory Pressure 4, Inspiratory Pressure 22, Phlebotomy Draw Site RIGHT RADIAL 03/13/18 2303: Anion Gap 13, Estimated GFR > 60, Glucose 145 H, Calcium 8.3 L, Phosphorus 4.3 , Magnesium 2.1, Total Bilirubin 0.7, AST 50, ALT 34, Albumin 3.2 L 03/13/18 2250: pH 7.13 *L, pCO2 88 *H, pO2 40 *L, HCO3 28, ABG O2 Sat (Measured) 51.0 L, Carboxyhemoglobin 0.5 L, O2 Concentration % 100%, Temperature 98.6, O2 Delivery Method NRB, Phlebotomy Draw Site RIGHT RADIAL 03/13/18 1900: APTT 56 H 03/13/18 1000: Sodium Cancelled, Potassium Cancelled, Chloride Cancelled, Carbon Dioxide Cancelled, Anion Gap Cancelled, BUN Cancelled, Creatinine Cancelled, Glucose Cancelled, Calcium Cancelled, Phosphorus Cancelled, Magnesium Cancelled, Total Bilirubin Cancelled, AST Cancelled, ALT Cancelled, Albumin Cancelled Assessment/Plan Assessment/Plan In summary this 67-year-old gentleman has a following problems 1. Seizure disorder/ecephalopathy 2. Atrial fibrillation, was not on chronic AC due to seizure disorder with refractory polysubstance abuse 3. Coronary artery disease status post CABG 4. Bioprosthetic aortic valve 5. Nonsustained wide complex tachycardia 6. Peripheral vascular disease 7. 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 polysubstance abuse, including cocaine 9. Hypertension 10. Hyperlipidemia 11. ?thrombocytopenia; improved 12. PNA His most recent EKG shows atrial fibrillation with a QTC of 477 and nonspecific T-wave changes low voltage. He is only on as needed Haldol and IV Lopressor as needed. Continue current cardiac medications. Planning extubation today Continue telemetry? Yes
--- NOTE | 2018-03-15 12:56 | RADIOLOGY REPORT ---
EXAMINATION: XR PORTABLE CHEST CLINICAL INFORMATION: Status post PICC line placement. COMPARISON: Chest done on 03/15/2018 at 5:53 AM. TECHNIQUE: Portable frontal view of the chest was obtained. FINDINGS: Interval placement of a right-sided PICC line present. The tip of the PICC line is seen projecting at the level of the cavoatrial junction. The tip of the endotracheal tube is located approximately 6.8 cm above the level of the seven. The tip of the enteric tube is not included within the [id number] and accordingly not visualized. Symmetric lung expansion is noted. Nonspecific bibasilar airspace disease is present. IMPRESSION: The tip of the right-sided PICC line is seen projecting at the level of the cavoatrial junction.
[2018-03-15 14:15] LABS: PTT 85 SEC (25-37)
--- NOTE | 2018-03-15 14:30 | RADIOLOGY REPORT ---
EXAMINATION: XR ELBOW, LEFT CLINICAL INFORMATION: Transcondylar humerus fracture. Evaluate for improvement. COMPARISON: 03/10/2018 TECHNIQUE: AP and lateral views of the left elbow. FINDINGS: Limited comparison due to differences in patient positioning. There appears to be no significant interval change to the minimal medial displacement of the transcondylar fracture. The degree of anterior displacement also appears stable at one-third shaft width. Unchanged appearance of prior radial head resection. Small joint effusion is unchanged. IMPRESSION: No significant interval change to the transcondylar fracture. There is minimal anterior and medial displacement. Persistent small joint effusion. Stable appearance of the radius, likely secondary to old resection.
[2018-03-15 16:00] VITALS: BP 110/70
[2018-03-16] VITALS: BP 110/0
[2018-03-16 03:45] LABS: ABSOLUTE BASOPHIL COUNT 0 /CUMM (0.0-0.2); ABSOLUTE EOSINOPHIL COUNT 0 /CUMM (0.0-0.7); ABSOLUTE GRANULOCYTE CT 6.6 /CUMM (1.4-6.5); ABSOLUTE LYMPH COUNT 1.7 /CUMM (1.2-3.4); ABSOLUTE MONOCYTE COUNT 2.5 /CUMM (0.10-0.60); BASOPHIL % 0.2 % (0.0-2.0); EOSINOPHIL % 0 % (0-5); GRANULOCYTE % 61.1 % (42.2-75.2); HEMATOCRIT 28.6 % (42-52); MEAN CORPUSCULAR HGB 30.4 PG (27.0-31.0); MEAN CORPUSCULAR VOLUME 92.1 FL (80.0-94.0); MEAN PLATELET VOLUME 10.4 FL (7.4-10.4); RBC DISTRIBUTION WIDTH 15.3 % (11.5-14.5); RED BLOOD CELL CT 3.11 /CUMM (4.70-6.10); WHITE BLOOD CELL COUNT 10.8 /CUMM (4.8-10.8)
[2018-03-16 03:53] LABS: PTT 93 SEC (25-37)
[2018-03-16 04:04] LABS: PLATELET COUNT ND /CUMM (130-400)
--- NOTE | 2018-03-16 07:07 | PN- Resident CRCU ---
Subjective HPI/CRCU Issues: Chronic hypoxic and hypercapnic respiratory failure. Seizure disorder Toxic metabolic encephalopathy Peripheral vascular disease s/p stent placement History of Garret childers on iv heparin Left nondisplaced transcondylar humerus fracture s/p splint. Diarrhea s/p rectal tube placement 24 Hour Events: No overnight events. Patient remained calm overnight. He remained intubated. His blood pressure remained stable overnight. Patient still is restraints. Patient has PICC line for medications and blood draw. Rectal tube is still in considering his diarrhea. Last night he has to bowel movements. Patient is seen and examined this morning. He is responding to verbal command with opening his eyes and purposeful limb movements. Patient is getting tube feeding for his nutrition. Objective Vital Signs & I&O Last 8 Hrs of Vitals and I&O: Temperature 96.9, pulse 73, respiratory rate 18, pressure 124/71 and oxygen saturation 98% on ventilator. Exam General Appearance: well developed/nourished Head: atraumatic Neck: normal inspection, supple Respiratory: intubated Cardiovascular: regular rate/rhythm Gastrointestinal: normal bowel sounds, soft Extremities: grade 1 pedal edema b/l, b/l hand swelling. Skin: ecchymosis Skin Temp/Moisture Exam: Warm/Dry Sepsis Skin Exam (color): Normal for Ethnicity Weaning Parameters NIF: 49 Minute Volume: 5.9 Resp rate: 12 Vt: 324 Heart Rate: 70 Weaning Schedule Start Time: 1025 Minute Volume: 13.4 Resp Rate: 28 Vt: 591 Heart Rate: 74 End Time: 1200 Minute Volume: 10.4 Resp Rate: 25 Vt: 431 Heart Rate: 71 PICC Site: right arm Date In: 03/15/18 Nutrition Nutrition: tube feeding Current Medications: Current Medications Sig/Louise Start time Last Medication Dose Route Stop Time Status Admin Acetaminophen 1,000 MG Q6P PRN 03/11 1415 AC 03/13 N/A 1 UNIT IV 0113 Atorvastatin Calcium 40 MG 1700 03/01 1700 AC 03/15 PO 1756 Clopidogrel Bisulfate 75 MG DAILY 03/14 0900 AC 03/15 PO 0950 Dexmedetomidine HCl 400 MCG Q14H 03/15 1430 AC 03/16 Sodium Chloride 96 ML IV 0438 Dexmedetomidine HCl 400 MCG Q20H 03/14 1500 DC 03/15 Sodium Chloride 96 ML IV 0649 Dextrose/Lactated 1,000 ML Q13H 03/15 0930 AC 03/16 Ringer's IV 0034 Dextrose/Lactated 1,000 ML Q10H 03/14 1430 DC 03/14 Ringer's IV 2330 Docusate Sodium 100 MG DAILY NEEDED 03/02 0930 AC 03/02 PO 1057 Haloperidol 0.5 MG Q8 03/15 0944 AC 03/16 IM 03/16 1000 0614 Heparin Sodium 25,000 UNIT Q24H 03/14 1200 AC 03/15 (Porcine) IV 1449 Sodium Chloride 500 ML Levetiracetam 500 MG Q12 03/12 2100 DC 03/15 N/A 1 UNIT IV 03/16 0700 2045 Lorazepam 0.5 MG ONCE ONE 03/15 1145 DC 03/15 IV 03/15 1146 1145 Lorazepam 1 MG Q2 HRS NEEDED PRN 03/14 1130 AC 03/15 IV 0407 Magnesium Sulfate 1 GM ONCE ONE 03/16 0715 AC Dextrose/Water 100 ML IV 03/16 1114 Magnesium Sulfate 1 GM ONCE ONE 03/15 0945 DC 03/15 Dextrose/Water 100 ML IV 03/15 1344 1027 Metoprolol Tartrate 5 MG Q6 03/08 1200 AC 03/16 IV 0616 Morphine Sulfate 2 MG Q2P PRN 03/14 1415 AC IV Pantoprazole Sodium 40 MG DAILY 03/08 1045 AC 03/15 IV 0921 Polyethylene Glycol 17 GM DAILY PRN 03/02 0930 AC 03/03 PO 0839 Potassium Chloride 10 MEQ Q1H 03/16 0800 AC IV 03/16 0901 Senna 187 MG AT BEDTIME PRN 03/02 0930 AC 03/02 PO 1057 Valproate Sodium 1,000 MG Q12H 03/08 1200 AC 03/16 Sodium Chloride 100 ML IV 0031 Vitamin A/Vitamin D 1 YOKO BID 03/12 1515 03/15 TOP 204 Impression/Plan Impression/Problem List Impression: 67 y/o M with PMH of chronic seizure disorder on valproate, CAD s/p CABG and bovine aortic valve replacement in 2013, Hodgkins lymphoma, HTN and HLD that was brought to the ED after he was found to be unresponsive. Patient was found to have possible metabolic toxic encephalopathy due to seizures or cocaine abuse. Patient had acute respiratory failure and he was intubated and he was extubated successfully on 03/08. Patient was found to have superficial femoral artery occlusion status post stent placement on 03/13. Patient is on IV heparin due to his atrial fibrillation. Chronic hypoxic and hypercapnic respiratory failure: -Could be multifactorial but possibly due to oversedation as patient was on multiple medications that can oversedate him. patient was not able maintain the airway. -Continue intubation and ventilation. We will try to extubate him today. -His CT scan had remained negative for bleed. -Continue Ativan 0.5 mg 4 hourly and continue precedex 0.1 mcg/kg/h. -Patient is extubated today and his was informed. Seizure disorder: -Patient's urine was positive for cocaine and cannabis. His seizure could be due to cocaine abuse. Could be due to alcohol abuse. -Continue IV Keppra and valproic acid -Seizure precautions. Toxic metabolic encephalopathy: -Possibly due to seizure activity, hypoxia, cocaine use, polysubstance abuse or could be due to pneumonia. -Continue supportive care -We will continue monitoring his mental status level. -Continue Ativan 0.5 mg every 4 hourly for sedation. -Seizure precautions. -We will give him three more doses of haldol 0.5mg today and reassess tomorrow again. Today his QTC is 457. PEPPER: -Possibly due to dehydration. -Cr today is 1.1 and GFR is more than 6o -Avoid nephrotoxins medications -Patient is retaining more than 3 L. Although his chest x-ray is clear for over load. On physical examination his chest is clear. Patient received one dose of 20 mg Lasix. -His IV fluid is restarted again D5 half normal saline at the rate of 75 mL per hour as patient will remain nothing by mouth. Diarrhea: -Patient developed diarrhea and rectal tube was placed. -C. difficile was sent again as last sample was inadequate for test. -His potassium was 3.8 that was repleted and magnesium 1.9 that was repleted today. We will follow potassium and magnesium. Peripheral vascular disease: -Right superficial femoral artery occlusion status post stent placement. -Stent placement was done for acute limb ischemia. -Continue Plavix. History of A. fib: -His IV heparin drip was discontinued and patient was placed on Lovenox 1 mg per KG per hour for stroke prevention from A. fib. -Continue IV metoprolol 5 mg every 6 hourly. -We'll follow cardiology recommendations. Left nondisplaced transcondylar humerus fracture: -We will continue left arm splint and managed conservatively. -Pain medication according to pain pathway. -Ice packing as needed around elbow. Patient has ecchymosis around his left elbow. DVT prophylaxis: Mechanical and patient is already on lovenox CODE STATUS: DNR/DNI Problem List: 1. Chronic respiratory failure with hypoxia and hypercapnia 2. Arterial occlusion 3. Atrial fibrillation 4. Metabolic encephalopathy 5. Seizure Pain Ratin Pain Location: none Tomorrow's Labs & Rationales: cbc/icu bundle Plan Respiratory: Patient is on ventilator and remained intubated. He started to volume is 550, respiratory rate 16, peak flow 80, PEEP 5. Infectious Diseases: Patient remained afebrile and his WBC count is within normal limits. For his diarrhea his C. difficile is pending. Cardiovascular: Patient is hemodynamically stable but remained in A. fib. His IV heparin was discontinued and patient was placed on Lovenox for stroke prevention from A. fib. Patient has right bundle branch block on EKG. His QTC is improving today it's 457. Hematology: Hematologic the patient is stable. His H&H is 9.4/28.6 Metabolic: We are repeating his potassium and magnesium. His liver function test is within normal limits. Patient's input and output is 4208/732 he is retaining more than 3 L. Although chest x-ray is negative for overload and his chest is clear on physical examination. We will discontinue his IV fluids for now. We will reassess him again. His kidney function is improving creatinine is 1.1 today. Alimentary: Tube feeding was discontinued to prevent aspiration during extubation. His albumin is low. Swallow evaluation was done but speech therapist recommended to evaluate him again considering patient's waxing and waning consciousness level. Neurological: Patient remained intubated on ventilator. He has metabolic encephalopathy multifactorial. Patient has purposeful limb movements and he is responding to verbal commands with eye opening. Skin: Ecchymosis on left arm DVT/Prophylaxis: mechanical, pharmacological Code Status: Do Not Resucitate
--- NOTE | 2018-03-16 07:57 | RADIOLOGY REPORT ---
EXAMINATION: XR PORTABLE CHEST CLINICAL INFORMATION: Intubated COMPARISON: Chest x-ray 03/15/2018 TECHNIQUE: Portable frontal view of the chest was obtained. FINDINGS: endotracheal tube terminates approximately 6 cm above the level of the seven. Right-sided PICC line is stable terminating at the cavoatrial junction. Low lung volumes. Subtle bibasilar opacities. No gross lobar consolidation. No large pleural effusion. Cardiac silhouette is stable. IMPRESSION: Stable examination.
[2018-03-16 08:00] VITALS: BP 134/70
--- NOTE | 2018-03-16 11:24 | PN- Cardiology ---
Subjective Subjective: Patient remains intubated. Objective Vital Signs and I&Os Vital Signs Date Time Temp Pulse Resp B/P B/P Pulse O2 O2 Flow FiO2 Mean Ox Delivery Rate 03/16 0847 30 03/16 0800 98 Ventilator 30% 03/16 0800 96.6 70 18 134/70 98 Ventilator 30% / 0616 701 124/71 08/ 0601 30 08/ 0400 100 Ventilator 30% / 0330 30 08/ 0000 95 Ventilator 30% 08/ 0000 96.3 74 28 110/0 95 Ventilator 30% 08/ 2358 30 08/ 2212 30 08/ 2000 94 Ventilator 30% / 1938 30 08/ 1806 96.9 73 18 113/62 08/02 1630 30 / 1600 98 Ventilator 30% / 1600 96.9 70 18 110/70 98 Ventilator 30% 08/ 1430 30 08/ 1307 118/80 08/02 1205 30 08/ 1200 96 Ventilator 30% Intake & Output / 1600 / 0800 / 0000 / 1600 / 0800 08/ 0000 Intake Total 1350 1284 1576 1549 1278 Output Total 272 210 250 220 200 Balance 1078 1074 1326 1329 1078 Intake, IV 322 508 8602 1089 998 Intake, Oral 0 0 Intake, Tube 260 254 158 160 120 Feeding Intake, Tube 200 100 200 300 160 Irrigant Number 1 1 1 Bowel Movements Output, Stool 25 Output, Urine 247 210 250 220 200 Physical Exam: General: Intubated Eyes: No obvious scleral icterus. HEENT: No jugular venous distention or abnormal jugular venous pulsations. Cardiovascular: Normal intensity S1/S2. Irregular Respiratory: Mildly decreased air entry Abdomen: no guarding Musculoskeletal: No clubbing; decreased lower extremity pulses Skin: No cyanosis Current Medications: Current Medications Sig/Louise Start time Last Medication Dose Route Stop Time Status Admin Acetaminophen 1,000 MG Q6P PRN 03/11 1415 AC 03/13 N/A 1 UNIT IV 0113 Atorvastatin Calcium 40 MG 1700 03/01 1700 AC 08 PO 1756 Clopidogrel Bisulfate 75 MG DAILY 03/14 09 AC 03/16 PO 0949 Dexmedetomidine HCl 400 MCG Q41H 03/16 1130 AC Sodium Chloride 96 ML IV Dexmedetomidine HCl 400 MCG Q14H 03/15 1430 DC 03/16 Sodium Chloride 96 ML IV 0438 Dextrose/Lactated 1,000 ML Q13H 03/15 0930 DC 03/16 Ringer's IV 0034 Docusate Sodium 100 MG DAILY NEEDED 03/02 0930 AC 03/02 PO 1057 Furosemide 20 MG ONCE ONE 03/16 1045 DC 03/16 IV 03/16 1046 1056 Haloperidol 0.5 MG TID 03/16 1039 AC 03/16 IM 03/16 2200 1100 Haloperidol 0.5 MG Q8 03/15 0944 DC 03/16 IM 03/16 1000 0614 Heparin Sodium 25,000 UNIT Q24H 03/14 1200 AC 03/15 (Porcine) IV 1449 Sodium Chloride 500 ML Levetiracetam 500 MG Q12 03/12 2100 DC 03/15 N/A 1 UNIT IV 03/16 0700 2045 Lorazepam 0.5 MG ONCE ONE 03/15 1145 DC 03/15 IV 03/15 1146 1145 Lorazepam 1 MG Q2 HRS NEEDED PRN 03/14 1130 AC 03/15 IV 0407 Magnesium Sulfate 1 GM ONCE ONE 03/16 0715 DC 03/16 Dextrose/Water 100 ML IV 03/16 1114 0800 Magnesium Sulfate 1 GM ONCE ONE 03/15 0945 DC 03/15 Dextrose/Water 100 ML IV 03/15 1344 1027 Metoprolol Tartrate 5 MG Q6 03/08 1200 AC 03/16 IV 0616 Morphine Sulfate 2 MG Q2P PRN 03/14 1415 AC IV Pantoprazole Sodium 40 MG DAILY 03/08 1045 03/16 IV 0949 Polyethylene Glycol 17 GM DAILY PRN 03/02 0930 03/03 PO 0839 Potassium Chloride 10 MEQ Q1H 03/16 0800 DC 03/16 IV 03/16 0901 0949 Senna 187 MG AT BEDTIME PRN 03/02 0930 AC 03/02 PO 1057 Valproate Sodium 1,000 MG Q12H 03/08 1200 AC 03/16 Sodium Chloride 100 ML IV 1116 Vitamin A/Vitamin D 1 YOKO BID 03/12 1515 03/16 TOP 0950 Results Last 48 Hrs of Labs/Mics: Laboratory Tests 03/16/18 0230: Anion Gap 7, Estimated GFR > 60, Glucose 120 H, Calcium 7.9 L, Phosphorus 2.7, Magnesium 1.9, Total Bilirubin 0.5, AST 20, ALT 26, Albumin 2.3 L, APTT 93 H, CBC w Diff MAN DIFF ORDERED, RBC 3.11 L, MCV 92.1, MCH 30.4, MCHC 33.0, RDW 15.3 H, Plt Count ND, MPV 10.4, Gran % 61.1, Lymphocytes % 15.7 L, Monocytes % 23.0 H, Eosinophils % 0, Basophils % 0.2, Absolute Granulocytes 6.6 H, Segmented Neutrophils 64, Absolute Lymphocytes 1.7, Lymphocytes 13 L, Absolute Monocytes 2.5 H, Absolute Eosinophils 0, Absolute Basophils 0, Platelet Estimate ADEQUATE, Polychromasia 1+, Poikilocytosis 1+, Ovalocytes 1+, Fld Total RBCs Counted 100 03/15/18 1610: Anion Gap 6, Estimated GFR > 60, BUN/Creatinine Ratio 11.7 03/15/18 1345: APTT 85 H 03/15/18 0810: pH 7.49 H, pCO2 30 L, pO2 93, HCO3 22, ABG O2 Sat (Measured) 97.0, Carboxyhemoglobin 0.3 L, O2 Concentration % 30%, Respiration Rate 20, O2 Delivery Method ESPIRT, Vent Mode AC, Expiratory Pressure 5, Tidal Volume 500, Phlebotomy Draw Site RIGHT RADIAL 03/15/18 0414: Anion Gap 6, Estimated GFR 50 L, Glucose 123 H, Calcium 7.7 L, Phosphorus 2.9 , Magnesium 1.9, Total Bilirubin 0.5, AST 27, ALT 31, Albumin 2.5 L, CBC w Diff MAN DIFF ORDERED, RBC 3.12 L, MCV 91.7, MCH 30.5, MCHC 33.3, RDW 15.0 H, MPV 9.9, Gran % 56.2, Lymphocytes % 16.0 L, Monocytes % 27.5 H, Eosinophils % 0.1, Basophils % 0.2, Absolute Granulocytes 6.6 H, Segmented Neutrophils 65, Band Neutrophils 5, Absolute Lymphocytes 1.9, Lymphocytes 13 L, Monocytes 15 H, Absolute Monocytes 3.2 H, Absolute Eosinophils 0, Absolute Basophils 0, Metamyelocytes 2 H, Platelet Estimate ADEQUATE, Normocytic RBCs VERIFIED, Polychromasia 1+ 03/14/18 1900: APTT 72 H 03/14/18 1210: APTT 60 H Recent Imaging Studies: Telemetry tracings were personally reviewed and show atrial fibrillation Chest x-ray Stable examination. Assessment/Plan Assessment/Plan 1. Seizure disorder/ecephalopathy 2. Atrial fibrillation, was not on chronic AC due to seizure disorder with refractory polysubstance abuse 3. Coronary artery disease status post CABG 4. Bioprosthetic aortic valve 5. Nonsustained wide complex tachycardia 6. Peripheral vascular disease 7. 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 polysubstance abuse, including cocaine 9. Hypertension 10. Hyperlipidemia 11. ?thrombocytopenia; improved 12. PNA Remains in atrial fibrillation with controlled ventricular response rate. Continue with anticoagulation and beta-boom therapy. Proceed with plan for extubation today. Juan Magallon MD [facility] Continue telemetry? Yes
--- NOTE | 2018-03-16 11:45 | Event Note ---
Event Note Event Note: Patient was extubated today around 11:00am and after extubation he did well. He is able to follow, and having purposeful limb movements. Patient remained hemodynamically stable and able to breathe spontaneously. He is on 4 L of oxygen and maintaining saturation 98%. His blood pressure is 138/103, pulse 75 and respiratory rate 18/min. patient is still confused and he is asking for food. He said "he wants to eat more". Patient still in restraints considering his agitation. We will continuously monitor him and reassess him.
--- NOTE | 2018-03-16 13:22 | PN- CRCU ---
Subjective HPI/Critical Care Issues: s/p extubation fatigue Diarrhea cdiff not done Objective Current Medications: Current Medications Sig/Louise Start time Last Medication Dose Route Stop Time Status Admin Acetaminophen 1,000 MG Q6P PRN 03/11 1415 AC 03/13 N/A 1 UNIT IV 0113 Atorvastatin Calcium 40 MG 1700 03/01 1700 AC 03/15 PO 1756 Clopidogrel Bisulfate 75 MG DAILY 03/14 0900 AC 03/16 PO 0949 Dexmedetomidine HCl 400 MCG Q41H 03/16 1130 AC Sodium Chloride 96 ML IV Dexmedetomidine HCl 400 MCG Q14H 03/15 1430 DC 03/16 Sodium Chloride 96 ML IV 0438 Dextrose/Lactated 1,000 ML Q13H 03/15 0930 DC 03/16 Ringer's IV 0034 Docusate Sodium 100 MG DAILY NEEDED 03/02 09 AC 03/02 PO 1057 Furosemide 20 MG ONCE ONE 03/16 1045 DC 03/16 IV 03/16 1046 1056 Haloperidol 0.5 MG TID 03/16 1039 AC 03/16 IM 03/16 2200 1100 Haloperidol 0.5 MG Q8 03/15 0944 DC 03/16 IM 03/16 1000 0614 Heparin Sodium 25,000 UNIT Q24H 03/14 1200 AC 03/15 (Porcine) IV 1449 Sodium Chloride 500 ML Levetiracetam 500 MG Q12 03/12 2100 DC 03/15 N/A 1 UNIT IV 03/16 0700 2045 Lorazepam 1 MG Q2 HRS NEEDED PRN 03/14 1130 AC 03/15 IV 0407 Magnesium Sulfate 1 GM ONCE ONE 03/16 0715 DC 03/16 Dextrose/Water 100 ML IV 03/16 1114 0800 Magnesium Sulfate 1 GM ONCE ONE 03/15 0945 DC 03/15 Dextrose/Water 100 ML IV 03/15 1344 1027 Metoprolol Tartrate 5 MG Q6 03/08 1200 AC 03/16 IV 0616 Morphine Sulfate 2 MG Q2P PRN 03/14 1415 AC IV Pantoprazole Sodium 40 MG DAILY 03/08 1045 AC 03/16 IV 0949 Polyethylene Glycol 17 GM DAILY PRN 03/02 0930 AC 03/03 PO 0839 Potassium Chloride 10 MEQ Q1H 03/16 0800 DC 03/16 IV 03/16 0901 0949 Senna 187 MG AT BEDTIME PRN 03/02 0930 AC 03/02 PO 1057 Valproate Sodium 1,000 MG Q12H 03/08 1200 AC 03/16 Sodium Chloride 100 ML IV 1116 Vitamin A/Vitamin D 1 YOKO BID 03/12 1515 AC 03/16 TOP 0950 Vital Signs & I&O Last 24 Hrs of Vitals and I&O: Vital Signs Date Time Temp Pulse Resp B/P B/P Pulse O2 O2 Flow FiO2 Mean Ox Delivery Rate 03/16 1200 98 Nasal 2.0L Cannula 03/16 0847 30 03/16 0800 98 Ventilator 30% 03/16 0800 96.6 70 18 134/70 98 Ventilator 30% 03/16 0616 701 124/71 03/16 0601 30 03/16 0400 100 Ventilator 30% 03/16 0330 30 03/16 0000 95 Ventilator 30% 03/16 0000 96.3 74 28 110/0 95 Ventilator 30% 03/15 2358 30 03/15 2212 30 03/15 2000 94 Ventilator 30% 03/15 1938 30 03/15 1806 96.9 73 18 113/62 02 1630 30 03/15 1600 98 Ventilator 30% 03/15 1600 96.9 70 18 110/70 98 Ventilator 30% /02 1430 30 Intake & Output 03/16 1600 03/16 0800 08/ 0000 Intake Total 1350 1284 Output Total 272 210 Balance 1078 1074 Intake, IV 890 930 Intake, Tube 260 254 Feeding Intake, Tube 200 100 Irrigant Output, Stool 25 Output, Urine 247 210 Laboratory Tests 03/16 03/16 03/15 1256 0230 1610 Chemistry Sodium (137 - 145 mmol/L) 142 139 Potassium (3.5 - 5.1 mmol/L) 3.8 3.5 Chloride (98 - 107 mmol/L) 111 H 109 H Carbon Dioxide (22 - 30 mmol/L) 24 25 Anion Gap (5 - 16) 7 6 BUN (9 - 20 mg/dL) 13 14 Creatinine (0.7 - 1.2 mg/dL) 1.1 1.2 Estimated GFR (>60 ml/min) > 60 > 60 BUN/Creatinine Ratio (7 - 25 %) 11.7 Glucose (65 - 99 mg/dL) 120 H Calcium (8.4 - 10.2 mg/dL) 7.9 L Phosphorus (2.5 - 4.5 mg/dL) 2.7 Magnesium (1.6 - 2.3 mg/dL) 1.9 Total Bilirubin (0.2 - 1.3 mg/dL) 0.5 AST (17 - 59 U/L) 20 ALT (21 - 72 U/L) 26 Albumin (3.5 - 5.0 g/dL) 2.3 L Coagulation APTT (25 - 37 SEC) Pending 93 H Hematology CBC w Diff MAN DIFF ORDERED WBC (4.8 - 10.8 /CUMM) 10.8 RBC (4.70 - 6.10 /CUMM) 3.11 L Hgb (14.0 - 18.0 G/DL) 9.4 L Hct (42 - 52 %) 28.6 L MCV (80.0 - 94.0 FL) 92.1 MCH (27.0 - 31.0 PG) 30.4 MCHC (33.0 - 37.0 G/DL) 33.0 RDW (11.5 - 14.5 %) 15.3 H Plt Count (130 - 400 /CUMM) ND MPV (7.4 - 10.4 FL) 10.4 Gran % (42.2 - 75.2 %) 61.1 Lymphocytes % (20.5 - 51.1 %) 15.7 L Monocytes % (1.7 - 9.3 %) 23.0 H Eosinophils % (0 - 5 %) 0 Basophils % (0.0 - 2.0 %) 0.2 Absolute Granulocytes (1.4 - 6.5 /CUMM) 6.6 H Segmented Neutrophils (42.2 - 75.2 %) 64 Absolute Lymphocytes (1.2 - 3.4 /CUMM) 1.7 Lymphocytes (20.5 - 51.1 %) 13 L Absolute Monocytes (0.10 - 0.60 /CUMM) 2.5 H Absolute Eosinophils (0.0 - 0.7 /CUMM) 0 Absolute Basophils (0.0 - 0.2 /CUMM) 0 Platelet Estimate (ADEQUATE) ADEQUATE Polychromasia 1+ Poikilocytosis 1+ Ovalocytes 1+ Other Body Source Fld Total RBCs Counted (%) 100 08 08 08 1345 0810 0414 Blood Gas pH (7.35 - 7.45 PH) 7.49 H pCO2 (35 - 45 TORR) 30 L pO2 (80 - 100 TORR) 93 HCO3 (21 - 28 MEQ/L) 22 ABG O2 Sat (Measured) (>96.0 %) 97.0 Carboxyhemoglobin (1.5 - 5.0 %) 0.3 L O2 Concentration % 30% Respiration Rate (BPM) 20 O2 Delivery Method ESPIRT Vent Mode AC Expiratory Pressure (CMH2O/P) 5 Tidal Volume (CC) 500 Chemistry Sodium (137 - 145 mmol/L) 141 Potassium (3.5 - 5.1 mmol/L) 3.2 L Chloride (98 - 107 mmol/L) 111 H Carbon Dioxide (22 - 30 mmol/L) 23 Anion Gap (5 - 16) 6 BUN (9 - 20 mg/dL) 14 Creatinine (0.7 - 1.2 mg/dL) 1.4 H Estimated GFR (>60 ml/min) 50 L Glucose (65 - 99 mg/dL) 123 H Calcium (8.4 - 10.2 mg/dL) 7.7 L Phosphorus (2.5 - 4.5 mg/dL) 2.9 Magnesium (1.6 - 2.3 mg/dL) 1.9 Total Bilirubin (0.2 - 1.3 mg/dL) 0.5 AST (17 - 59 U/L) 27 ALT (21 - 72 U/L) 31 Albumin (3.5 - 5.0 g/dL) 2.5 L Coagulation APTT (25 - 37 SEC) 85 H Hematology CBC w Diff MAN DIFF ORDERED WBC (4.8 - 10.8 /CUMM) 11.7 H RBC (4.70 - 6.10 /CUMM) 3.12 L Hgb (14.0 - 18.0 G/DL) 9.5 L Hct (42 - 52 %) 28.6 L MCV (80.0 - 94.0 FL) 91.7 MCH (27.0 - 31.0 PG) 30.5 MCHC (33.0 - 37.0 G/DL) 33.3 RDW (11.5 - 14.5 %) 15.0 H Plt Count (130 - 400 /CUMM) 187 MPV (7.4 - 10.4 FL) 9.9 Gran % (42.2 - 75.2 %) 56.2 Lymphocytes % (20.5 - 51.1 %) 16.0 L Monocytes % (1.7 - 9.3 %) 27.5 H Eosinophils % (0 - 5 %) 0.1 Basophils % (0.0 - 2.0 %) 0.2 Absolute Granulocytes (1.4 - 6.5 /CUMM) 6.6 H Segmented Neutrophils (42.2 - 75.2 %) 65 Band Neutrophils (0.0 - 5.0 %) 5 Absolute Lymphocytes (1.2 - 3.4 /CUMM) 1.9 Lymphocytes (20.5 - 51.1 %) 13 L Monocytes (1.7 - 9.3 %) 15 H Absolute Monocytes (0.10 - 0.60 /CUMM) 3.2 H Absolute Eosinophils (0.0 - 0.7 /CUMM) 0 Absolute Basophils (0.0 - 0.2 /CUMM) 0 Metamyelocytes (0.0 - 1.0 %) 2 H Platelet Estimate (ADEQUATE) ADEQUATE Normocytic RBCs VERIFIED Polychromasia 1+ Miscellaneous Phlebotomy Draw Site RIGHT RADIAL 03/14 1900 Coagulation APTT (25 - 37 SEC) 72 H Microbiology Date/Time Procedure - Status Source Growth 03/16 1316 Clostridium difficile Toxin A & B - ORD STOOL 03/16 0330 Clostridium difficile Toxin A & B - CAN STOOL Cancelled: QUANTITY NOT SUFFICIENT /MORE STOOL NEEDED TO RUN TEST. 03/15 1225 Respiratory Culture - RES LOWER RESP GRAM NEGATIVE RODS 03/15 1225 Gram Stain - RES LOWER RESP 03/14 1445 Respiratory Culture - RES LOWER RESP SERRATIA MARCESCENS GRAM NEGATIVE RODS 03/14 1445 Gram Stain - RES LOWER RESP 03/14 0630 Blood Culture - RES BLOOD 03/14 0615 Blood Culture - RES BLOOD Impression/Plan Impression/Plan Impression/Plan: СЕРГЕЙ,On restraints and intubated Eomi Chest clear cvs aure, afib abd soft No edema Fracture left Ue Pupils small Agitated but follows commands on precedex This is a 67-year-old gentleman with history of hypertension, hyperlipidemia, CABG, previous bovine aortic valve replacement, previous history of Hodgkin's lymphoma in the late 90s with previous chemoradiation therapy leading to significant neuropathy, significant medical marijuana usage, alcohol use on and off, multiple surgeries and chronic pain, previous seizure disorder started in 2014 and since then followed by [facility] seizure clinic (compliant) here with encephelopathy multifactorial (not having any seizures) * Chronic resp failure due to inability to maintain his airway due to severe encephelopathy. S/p rx for polymicrobial pna now s/p extubation * Sig encephelopathy -with delirium with prior seizure now on appropriate medication. He does have chronic issues as noted from before including a chronic arachnoid cyst, polysubstance use, alcohol use, sig cocaine use and small vessel ischemia etc. Since admission he has had severe delirium which has been unable to be treated. He has been tried on several medications. Neurology did recommend continuing these medications. 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) s/p surg with stent on 03/13 * Stable Thrombocytopenia - HIT neg now back on heparin * Significant alcohol use by history with probable dts, Marijuana, sig cocaine in the urine upon admission * Sig Heart disease with previous CABG and aortic valve replacement with bioprosthetic valve with previous arrythmia, now in pafib * Previous history of nephrolithiasis, now with john (improving) * Nasal fracture and displaced transcondylar fracture of distal left humerus, conservative rx per ortho * 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
[2018-03-16 14:07] LABS: PTT 64 SEC (25-37)
[2018-03-16 16:00] VITALS: BP 120/80
[2018-03-17] VITALS: BP 144/78
[2018-03-17 01:35] LABS: PTT > 120 SEC (25-37)
[2018-03-17 05:20] LABS: ABSOLUTE BASOPHIL COUNT 0 /CUMM (0.0-0.2); ABSOLUTE EOSINOPHIL COUNT 0 /CUMM (0.0-0.7); ABSOLUTE GRANULOCYTE CT 6.3 /CUMM (1.4-6.5); ABSOLUTE LYMPH COUNT 2.2 /CUMM (1.2-3.4); ABSOLUTE MONOCYTE COUNT 2.3 /CUMM (0.10-0.60); BASOPHIL % 0.1 % (0.0-2.0); EOSINOPHIL % 0.1 % (0-5); GRANULOCYTE % 58.1 % (42.2-75.2); HEMATOCRIT 29.2 % (42-52); MEAN CORPUSCULAR HGB 31.5 PG (27.0-31.0); MEAN CORPUSCULAR HGB CONC 34.5 G/DL (33.0-37.0); MEAN CORPUSCULAR VOLUME 91.3 FL (80.0-94.0); MEAN PLATELET VOLUME 10.6 FL (7.4-10.4); RBC DISTRIBUTION WIDTH 14.9 % (11.5-14.5); WHITE BLOOD CELL COUNT 10.8 /CUMM (4.8-10.8)
[2018-03-17 06:16] LABS: PLATELET COUNT ND /CUMM (130-400)
--- NOTE | 2018-03-17 07:56 | PN- CRCU ---
Subjective HPI/Critical Care Issues: The patient remains delirious, but has a stable respiratory status post extubation. He remains on low-dose Precedex for uncontrolled agitation. He continues to have a English catheter and rectal tube in place. The patient remains in atrial fibrillation with good rate control. He is afebrile. His blood pressure is marginally elevated periodically. He continues on IV fluids, D5 lactated Ringer's at 75 mL/h. Objective Current Medications: Current Medications Sig/Louise Start time Last Medication Dose Route Stop Time Status Admin Acetaminophen 1,000 MG Q6P PRN 03/11 1415 AC 03/13 N/A 1 UNIT IV 0113 Atorvastatin Calcium 40 MG 1700 03/01 1700 AC 03/15 PO 1756 Clopidogrel Bisulfate 75 MG DAILY 03/14 0900 AC 03/16 PO 0949 Dexmedetomidine HCl 400 MCG Q24H 03/17 0430 AC Sodium Chloride 96 ML IV Dexmedetomidine HCl 400 MCG Q41H 03/16 1130 DC Sodium Chloride 96 ML IV 03/17 0429 Dexmedetomidine HCl 400 MCG Q14H 03/15 1430 DC 03/16 Sodium Chloride 96 ML IV 0438 Dextrose/Lactated 1,000 ML Q13H 03/15 0930 DC 03/16 Ringer's IV 0034 Dextrose/Sodium 1,000 ML Q13H 03/16 1330 AC 03/16 Chloride IV 2144 Docusate Sodium 100 MG DAILY NEEDED 03/02 0930 AC 03/02 PO 1057 Enoxaparin Sodium 100 MG BID 03/16 2100 AC 03/16 SC 2143 Furosemide 20 MG ONCE ONE 03/16 1045 DC 03/16 IV 03/16 1046 1056 Haloperidol 0.5 MG TID 03/16 1039 DC 03/16 IM 03/16 2200 2142 Haloperidol 0.5 MG Q8 03/15 0944 DC / IM 03/16 1000 0614 Heparin Sodium 25,000 UNIT Q24H 03/14 1200 DC 03/15 (Porcine) IV 1449 Sodium Chloride 500 ML Lorazepam 0.5 MG Q4 HRS NEEDED PRN 03/16 1330 AC IV Lorazepam 1 MG Q2 HRS NEEDED PRN 03/14 1130 DC 03/15 IV 0407 Magnesium Sulfate 1 GM .STK-MED ONE 03/16 0752 DC IM 03/16 0753 Magnesium Sulfate 1 GM ONCE ONE 03/16 0715 DC 03/16 Dextrose/Water 100 ML IV 03/16 1114 0800 Metoprolol Tartrate 5 MG Q6 03/08 1200 AC 03/17 IV 0537 Morphine Sulfate 2 MG Q2P PRN 03/14 1415 AC IV Pantoprazole Sodium 40 MG DAILY 03/08 1045 AC 03/16 IV 0949 Polyethylene Glycol 17 GM DAILY PRN 03/02 0930 AC 03/03 PO 0839 Potassium Chloride 10 MEQ Q1H 03/17 0700 AC 03/17 IV 03/17 0801 0655 Potassium Chloride 10 MEQ Q1H 03/16 0800 DC 03/16 IV 03/16 0901 0949 Senna 187 MG AT BEDTIME PRN 03/02 0930 AC 03/02 PO 1057 Valproate Sodium 1,000 MG Q12H 03/08 1200 AC 03/16 Sodium Chloride 100 ML IV 2344 Vitamin A/Vitamin D 1 YOKO BID 03/12 1515 03/16 TOP 2143 Vital Signs & I&O Last 24 Hrs of Vitals and I&O: Vital Signs Date Time Temp Pulse Resp B/P B/P Pulse O2 O2 Flow FiO2 Mean Ox Delivery Rate 03/17 0537 100 153/97 03/17 0400 96 Nasal 2.0L Cannula 03/17 0000 97.8 84 28 144/78 95 Nasal 2.0L Cannula 03/17 0000 97 Nasal 2.0L Cannula 03/16 2344 84 160/99 03/16 2000 98 Nasal 2.0L Cannula 03/16 1600 98 Nasal 2.0L Cannula 03/16 1600 97.3 68 20 120/80 98 Nasal 2.0L Cannula 03/16 1200 98 Nasal 2.0L Cannula 03/16 0847 30 03/16 08 98 Ventilator 30% 03/16 08 96.6 70 18 134/70 98 Ventilator 30% Intake & Output 03/17 0803/17 0000 03/16 1600 Intake Total 714 879 953 Output Total 650 1000 1999 Balance 64 -121 -1047 Intake, IV 714 879 753 Intake, Oral 0 Intake, Tube 60 Feeding Intake, Tube 140 Irrigant Number 2 Bowel Movements Output, Stool 100 Output, Urine 650 1000 1900 Exam General Appearance: no apparent distress, confused Head: atraumatic Neck: normal inspection, supple Respiratory: normal breath sounds, chest non-tender Cardiovascular: regular rate/rhythm Gastrointestinal: soft, non-tender Extremities: Bilateral lower extremity edema Skin Temp/Moisture Exam: Warm/Dry Results Last 24 Hrs of Lab Results: Laboratory Tests 03/17/18 0430: Anion Gap 9, Estimated GFR > 60, Glucose 96, Calcium 8.2 L, Phosphorus 2.9, Magnesium 1.8, Total Bilirubin 0.5, AST 21, ALT 23, Albumin 2.7 L, CBC w Diff MAN DIFF ORDERED, RBC 3.20 L, MCV 91.3, MCH 31.5 H, MCHC 34.5, RDW 14.9 H, Plt Count ND, MPV 10.6 H, Gran % 58.1, Lymphocytes % 20.1 L, Monocytes % 21.6 H, Eosinophils % 0.1, Basophils % 0.1, Absolute Granulocytes 6.3, Segmented Neutrophils 72, Band Neutrophils 2, Absolute Lymphocytes 2.2, Lymphocytes 14 L, Monocytes 12 H, Absolute Monocytes 2.3 H, Absolute Eosinophils 0, Absolute Basophils 0, Platelet Estimate ADEQUATE, Polychromasia 1+ 03/17/18 0100: APTT > 120 *H 03/16/18 1300: APTT 64 H Impression/Plan Impression/Plan Impression/Plan: 1. Chronic respiratory failure due to inability to maintain airway. 2. Severe encephalopathy -toxic metabolic. 3. S/P treatment for polymicrobial pneumonia. 4. Ischemic right foot due to SFA occlusion status post surgical intervention with stent placement on 03/13/18. 5. Stable thrombocytopenia, HI T negative, on heparin. 6. Significant alcohol use by history, with illicit substance abuse, urine positive for cocaine on admission. 7. Heart disease with previous CABG and aortic valve replacement with bioprosthetic valve. 8. Paroxysmal atrial fibrillation. 9. Acute kidney injury, improved. 10. Dysphagia -the patient failed a swallowing evaluation yesterday. 10. Malnutrition. Recommendations: * Replete potassium. * Attempt to wean Precedex down to off. * Continue with blood pressure control. * Use sedating medications sparingly. * Check daily EKGs and follow QTC intervals in the setting of Haldol administration. * Monitor respiratory status closely. Maintain on strict aspiration precautions. * Await repeat swallowing evaluation. * Attempt to advance diet if able. * Decrease/discontinue IV fluids once the patient has oral adequate intake. * Continue nebs/total respiratory care. * Monitor off antibiotics. Current sputum cultures are positive for gram- negative rods however likely colonization. Will restart antibiotics if the patient has a temperature spike or evidence of increasing sputum or new chest x- ray findings. * DVT prophylaxis at all times. Code Status: Do Not Resucitate
[2018-03-17 08:00] VITALS: BP 138/92
--- NOTE | 2018-03-17 08:04 | PN- Resident CRCU ---
Subjective HPI/CRCU Issues: Chronic hypoxic and hypercapnic respiratory failure. Seizure disorder Toxic metabolic encephalopathy Peripheral vascular disease s/p stent placement History of A. fib on iv heparin Acute kidney injury, improved. Stable thrombocytopenia, HI T negative, on heparin Left nondisplaced transcondylar humerus fracture s/p splint. Diarrhea s/p rectal tube placement Malnutrition. 24 Hour Events: No overnight events. Patient remained calm overnight. He remained delirious but his respiratory status post extubation is stable. He is still having English' s catheter and rectal tube. Patient remained in A. fib but with controlled heart rate. Patient remained in restraints. His input and output over 24 hours is 271/3650. His QTc this morning is 474. Patient is on 2 L of oxygen and maintaining saturation 95%. Objective Vital Signs & I&O Last 8 Hrs of Vitals and I&O: Intake & Output 03/18 1600 Intake Total 504 Output Total 4300 Balance -3796 Intake, IV 474 Intake, Oral 30 Number 0 Bowel Movements Output, Urine 4300 TEMP 98.0, PULSE 92, BP 178/98, R/R 18 Exam General Appearance: well developed/nourished, no apparent distress Head: atraumatic Neck: normal inspection, supple Respiratory: normal breath sounds, chest non-tender Cardiovascular: regular rate/rhythm Gastrointestinal: soft, non-tender Extremities: B/L PEDAL EDEMA GRADE 1, B/L HAND SWELLING. Cranial Nerves: normal hearing Skin Temp/Moisture Exam: Warm/Dry Sepsis Skin Exam (color): Normal for Ethnicity Weaning Parameters NIF: 36 Minute Volume: 9.56 Resp rate: 19 Vt: 512 Heart Rate: 73 Weaning Schedule Start Time: 904 Minute Volume: 8.25 Resp Rate: 18 Vt: 425 Heart Rate: 69 End Time: 1045 Minute Volume: 10.4 Resp Rate: 25 Vt: 431 Heart Rate: 71 Current Medications: Current Medications Sig/Louise Start time Last Medication Dose Route Stop Time Status Admin Acetaminophen 1,000 MG .STK-MED ONE 03/18 1317 DC IV 03/18 1318 Acetaminophen 1,000 MG Q6P PRN 03/11 1415 AC 03/18 N/A 1 UNIT IV 1326 Atorvastatin Calcium 40 MG 1700 03/01 1700 AC 03/18 PO 1722 Clopidogrel Bisulfate 75 MG DAILY 03/14 0900 AC 03/18 PO 0809 Dexmedetomidine HCl 400 MCG Q24H 03/17 0430 DC 03/18 Sodium Chloride 96 ML IV 0603 Dextrose/Sodium 1,000 ML Q13H 03/16 1330 DC 08/ Chloride IV 0603 Docusate Sodium 100 MG DAILY NEEDED 03/02 0930 AC 03/02 PO 1057 Enoxaparin Sodium 100 MG BID 03/16 2100 AC 03/18 SC 2127 Furosemide 40 MG ONCE ONE 03/18 1730 DC 03/18 IV 03/18 1731 1815 Furosemide 40 MG ONCE ONE 03/18 0845 DC 03/18 IV 03/18 0846 0843 Lorazepam 0.5 MG Q4 HRS NEEDED PRN 03/16 1330 AC 03/18 IV 1315 Metoprolol Tartrate 25 MG BID 03/17 2100 AC 03/18 PO 2127 Morphine Sulfate 2 MG Q2P PRN 03/14 1415 AC 03/18 IV 2123 Pantoprazole Sodium 40 MG DAILY 03/08 1045 AC 03/18 IV 0808 Polyethylene Glycol 17 GM DAILY PRN 03/02 0930 AC 03/03 PO 0839 Potassium Chloride 40 MEQ ONCE ONE 03/18 2000 DC 08 PO 03/18 2001 2126 Potassium Chloride 40 MEQ ONCE ONE 03/18 1645 DC 08 PO 03/18 1646 1722 Potassium Chloride 40 MEQ ONCE ONE 03/18 1200 DC 08 PO 03/18 1201 1209 Senna 187 MG AT BEDTIME PRN 03/02 0930 AC 03/02 PO 1057 Valproate Sodium 1,000 MG Q12H 03/08 1200 AC 03/18 Sodium Chloride 100 ML IV 1209 Vitamin A/Vitamin D 1 YOKO BID 03/12 1515 03/18 TOP 2126 Impression/Plan Impression/Problem List Impression: 67 y/o M with PMH of chronic seizure disorder on valproate, CAD s/p CABG and bovine aortic valve replacement in 2013, Hodgkins lymphoma, HTN and HLD that was brought to the ED after he was found to be unresponsive. Patient was found to have possible metabolic toxic encephalopathy due to seizures or cocaine abuse. Patient had acute respiratory failure and he was intubated and he was extubated successfully on 03/08. Patient was found to have superficial femoral artery occlusion status post stent placement on 03/13. Patient is on IV heparin due to his atrial fibrillation. Chronic hypoxic and hypercapnic respiratory failure: -Could be multifactorial but possibly due to oversedation as patient was on multiple medications that can oversedate him. patient was not able maintain the airway. -His CT scan had remained negative for bleed. -Patient was extubated yesterday. Respiratory-brennan he remained stable on 2 L of oxygen he is maintaining saturation 95%. -Continue Ativan 0.5 mg 4 hourly and continue precedex 0.1 mcg/kg/h. -Patient sputum culture is showing gram-negative rods and serratia marcescens possibly due to chronic colonization but if patient develops fever or any signs of infection then we will start him on ceftriaxone 1 g per day. Seizure disorder: -Patient's urine was positive for cocaine and cannabis. His seizure could be due to cocaine abuse. Could be due to alcohol abuse. -Continue IV Keppra and valproic acid -Seizure precautions. -Strict aspiration precautions Toxic metabolic encephalopathy: -Possibly due to seizure activity, hypoxia, cocaine use, polysubstance abuse or could be due to pneumonia. -Continue supportive care -We will continue monitoring his mental status level. -Continue Ativan 0.5 mg every 4 hourly for sedation. -Seizure precautions. -Strict aspiration precautions -Check daily EKGs and follow QTC intervals in the setting of Haldol administration. -Patient's QTc this morning is 474 compared to yesterday for 457. We try to keep him off from Haldol but if he needs for agitation we will give him 0.5 mg when necessary( Not more than 2-3 doses in 24hrs and will check his QTC tomorrow ). -Speech therapist recommended puree and honey thick diet but patient is still confused, so we will give him his oral meds with honey thick liquids. Keeping him NPO just meds with honey thick liquid. PEPPER:(Resolved) -Possibly due to dehydration. -Cr today is 1.0 -Avoid nephrotoxins medications -His IV fluid is restarted again D5 half normal saline at the rate of 75 mL per hour as patient will remain nothing by mouth. Diarrhea: -Patient developed diarrhea and rectal tube was placed. -Follow-up C. difficile result. -His potassium was 3.4 that was repleted and magnesium 1.9 that was repleted today. We will follow potassium and magnesium. Peripheral vascular disease: -Right superficial femoral artery occlusion status post stent placement. -Stent placement was done for acute limb ischemia. -Continue Plavix. History of A. fib: -Continue Lovenox 1 mg per KG per hour for stroke prevention from A. fib, we will switch it to po anticoagulation before discharge. -IV metoprolol was switched to po 25mg bid as recommended by cardilogy. -We'll follow cardiology recommendations. Left nondisplaced transcondylar humerus fracture: -We will continue left arm splint and managed conservatively. -Pain medication according to pain pathway. -Ice packing as needed around elbow. Patient has ecchymosis around his left elbow. DVT prophylaxis: Mechanical and patient is already on lovenox CODE STATUS: DNR/DNI Problem List: 1. Chronic respiratory failure with hypoxia and hypercapnia 2. Arterial occlusion 3. Atrial fibrillation 4. Metabolic encephalopathy 5. Seizure Pain Ratin Pain Location: NONE Tomorrow's Labs & Rationales: CBC/ICU BUNDLE Plan Respiratory: Respiratory-brennan patient remained stable post extubation. He is using 2 L of oxygen maintaining saturation 95%. Sputum cultures showed gram-negative rods although patient is afebrile WBC count is 10.8. We will closely monitor him if he develops signs of infection(cough, sputum, fever) we will start ceftriaxone 1 g every day. Infectious Diseases: Sputum cultures showed gram-negative rods although patient is afebrile WBC count is 10.8. We will closely monitor him if he develops signs of infection(cough, sputum, fever) we will start ceftriaxone 1 g every day. Cardiovascular: Patient is hemodynamically stable but remained in A. fib. Patient has right bundle branch block on EKG. His QTC is improving today it's 474. Continue Lovenox for stroke prevention in the setting of A. fib. Hematology: Hematologic the patient is stable. His H&H is 10.1/29.2 Metabolic: We are repeating his potassium and magnesium. His liver function test is within normal limits. Patient's input and output is 2714/3650. We will continue his D5 normal saline. Alimentary: Patient has low albumin probably due to malnutrition. Speech therapist recommended puree and honey thick diet but patient is still confused, so we will give him his oral meds with honey thick liquids. Keeping him NPO just meds with honey thick liquid. Neurological: Patient remained confused due to toxic metabolic encephalopathic. Skin: Ecchymosis on left arm DVT/Prophylaxis: mechanical, pharmacological Code Status: Do Not Resucitate
--- NOTE | 2018-03-17 14:52 | PN- Cardiology ---
Subjective Subjective: Patient is extubated. He has no current cardiac complaints. No chest pain. No palpitations. No shortness of breath. Objective Vital Signs and I&Os Vital Signs Date Time Temp Pulse Resp B/P B/P Pulse O2 O2 Flow FiO2 Mean Ox Delivery Rate 03/17 1200 97 Room Air 03/17 0800 97 Room Air 03/17 08 98.6 90 16 138/92 97 Room Air 03/17 0537 100 153/97 03/17 0400 96 Nasal 2.0L Cannula 03/17 0000 97.8 84 28 144/78 95 Nasal 2.0L Cannula 03/17 0000 97 Nasal 2.0L Cannula 03/16 2344 84 160/99 03/16 2000 98 Nasal 2.0L Cannula 03/16 1600 98 Nasal 2.0L Cannula 03/16 1600 97.3 68 20 120/80 98 Nasal 2.0L Cannula Intake & Output 03/17 1600 03/17 0800 03/17 0000 03/16 1600 03/16 0800 03/16 0000 Intake Total 763.2 714 160 849 7572 1284 Output Total 716 885 8930 2000 272 210 Balance 13.2 64 -121 -1047 1078 1074 Intake, IV 763.2 714 879 753 890 930 Intake, Oral 0 0 Intake, Tube 60 260 254 Feeding Intake, Tube 140 200 100 Irrigant Number 1 2 Bowel Movements Output, Stool 100 25 Output, Urine 631 824 7280 1900 247 210 Physical Exam: Gen: NAD HEENT: normal Lungs: clear to auscultation, normal resp. effort Heart: S1, S2, no murmurs Abdomen: Soft, nontender, no masses Extremities: No clubbing, cyanosis, or edema. Neuro: Alert and oriented x 3, cranial nerves intact Current Medications: Current Medications Sig/Louise Start time Last Medication Dose Route Stop Time Status Admin Acetaminophen 1,000 MG Q6P PRN 03/11 1415 AC 03/13 N/A 1 UNIT IV 0113 Atorvastatin Calcium 40 MG 1700 03/01 1700 AC 03/15 PO 1756 Clopidogrel Bisulfate 75 MG DAILY 03/14 09 AC 03/17 PO 1443 Dexmedetomidine HCl 400 MCG Q24H 03/17 0430 AC 03/17 Sodium Chloride 96 ML IV 0816 Dexmedetomidine HCl 400 MCG Q41H 03/16 1130 DC Sodium Chloride 96 ML IV 03/17 0429 Dextrose/Sodium 1,000 ML Q13H 03/16 1330 AC 03/16 Chloride IV 2144 Docusate Sodium 100 MG DAILY NEEDED 03/02 0930 AC 03/02 PO 1057 Enoxaparin Sodium 100 MG BID 03/16 2100 AC 03/17 SC 0811 Haloperidol 0.5 MG TID 03/16 1039 DC 03/16 IM 03/16 2200 2142 Lorazepam 0.5 MG Q4 HRS NEEDED PRN 03/16 1330 AC IV Magnesium Sulfate 1 GM ONCE ONE 03/17 0915 DC 03/17 Dextrose/Water 100 ML IV 03/17 1314 0919 Metoprolol Tartrate 5 MG Q6 03/08 1200 AC 03/17 IV 1117 Morphine Sulfate 2 MG Q2P PRN 03/14 1415 AC 03/17 IV 1024 Pantoprazole Sodium 40 MG DAILY 03/08 1045 AC 03/17 IV 0810 Polyethylene Glycol 17 GM DAILY PRN 03/02 0930 AC 03/03 PO 0839 Potassium Chloride 10 MEQ ONCE ONE 03/17 0915 DC 03/17 IV 03/17 0916 0921 Potassium Chloride 10 MEQ ONCE ONE 03/17 0915 DC 03/17 IV 03/17 0916 1025 Potassium Chloride 10 MEQ Q1H 03/17 0700 DC 03/17 IV 03/17 0801 0810 Senna 187 MG AT BEDTIME PRN 03/02 0930 AC 03/02 PO 1057 Valproate Sodium 1,000 MG Q12H 03/08 1200 AC 03/17 Sodium Chloride 100 ML IV 1118 Vitamin A/Vitamin D 1 YOKO BID 03/12 1515 03/17 TOP 0810 Results Last 48 Hrs of Labs/Mics: Laboratory Tests 03/17/18 0430: Anion Gap 9, Estimated GFR > 60, Glucose 96, Calcium 8.2 L, Phosphorus 2.9, Magnesium 1.8, Total Bilirubin 0.5, AST 21, ALT 23, Albumin 2.7 L, CBC w Diff MAN DIFF ORDERED, RBC 3.20 L, MCV 91.3, MCH 31.5 H, MCHC 34.5, RDW 14.9 H, Plt Count ND, MPV 10.6 H, Gran % 58.1, Lymphocytes % 20.1 L, Monocytes % 21.6 H, Eosinophils % 0.1, Basophils % 0.1, Absolute Granulocytes 6.3, Segmented Neutrophils 72, Band Neutrophils 2, Absolute Lymphocytes 2.2, Lymphocytes 14 L, Monocytes 12 H, Absolute Monocytes 2.3 H, Absolute Eosinophils 0, Absolute Basophils 0, Platelet Estimate ADEQUATE, Polychromasia 1+ 03/17/18 0100: APTT > 120 *H 03/16/18 1300: APTT 64 H 03/16/18 0230: Anion Gap 7, Estimated GFR > 60, Glucose 120 H, Calcium 7.9 L, Phosphorus 2.7, Magnesium 1.9, Total Bilirubin 0.5, AST 20, ALT 26, Albumin 2.3 L, APTT 93 H, CBC w Diff MAN DIFF ORDERED, RBC 3.11 L, MCV 92.1, MCH 30.4, MCHC 33.0, RDW 15.3 H, Plt Count ND, MPV 10.4, Gran % 61.1, Lymphocytes % 15.7 L, Monocytes % 23.0 H, Eosinophils % 0, Basophils % 0.2, Absolute Granulocytes 6.6 H, Segmented Neutrophils 64, Absolute Lymphocytes 1.7, Lymphocytes 13 L, Absolute Monocytes 2.5 H, Absolute Eosinophils 0, Absolute Basophils 0, Platelet Estimate ADEQUATE, Polychromasia 1+, Poikilocytosis 1+, Ovalocytes 1+, Fld Total RBCs Counted 100 03/15/18 1610: Anion Gap 6, Estimated GFR > 60, BUN/Creatinine Ratio 11.7 Microbiology 03/16 1400 STOOL: Clostridium difficile Toxin A & B - COMP Assessment/Plan Assessment/Plan 1. Seizure disorder/ecephalopathy 2. Atrial fibrillation, was not on chronic AC due to seizure disorder with refractory polysubstance abuse 3. Coronary artery disease status post CABG 4. Bioprosthetic aortic valve 5. Nonsustained wide complex tachycardia 6. Peripheral vascular disease 7. 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 polysubstance abuse, including cocaine 9. Hypertension 10. Hyperlipidemia 11. ?thrombocytopenia; improved 12. PNA Plan: * Start p.o. metoprolol 25 mg p.o. twice daily, and discontinue IV metoprolol * Continue Lovenox for now, with plan to change to Eliquis or other oral anticoagulant prior to discharge Continue telemetry? Yes
[2018-03-17 16:00] VITALS: BP 130/80
[2018-03-18] VITALS: BP 148/00
[2018-03-18 04:05] LABS: ABSOLUTE BASOPHIL COUNT 0 /CUMM (0.0-0.2); ABSOLUTE EOSINOPHIL COUNT 0 /CUMM (0.0-0.7); ABSOLUTE GRANULOCYTE CT 6.1 /CUMM (1.4-6.5); ABSOLUTE LYMPH COUNT 2.1 /CUMM (1.2-3.4); ABSOLUTE MONOCYTE COUNT 3.1 /CUMM (0.10-0.60); BASOPHIL % 0.3 % (0.0-2.0); EOSINOPHIL % 0.1 % (0-5); MEAN CORPUSCULAR HGB 31.2 PG (27.0-31.0); MEAN CORPUSCULAR HGB CONC 33.9 G/DL (33.0-37.0); MEAN CORPUSCULAR VOLUME 91.9 FL (80.0-94.0); MEAN PLATELET VOLUME 10.3 FL (7.4-10.4); PLATELET COUNT 156 /CUMM (130-400); RBC DISTRIBUTION WIDTH 15.2 % (11.5-14.5); RED BLOOD CELL CT 3.15 /CUMM (4.70-6.10); WHITE BLOOD CELL COUNT 11.4 /CUMM (4.8-10.8)
--- NOTE | 2018-03-18 07:54 | PN- Resident CRCU ---
Subjective HPI/CRCU Issues: Persistent delirium -- secondary to Toxic metabolic encephalopathy, slowly improving PAD s/p stent placement h/o A. fib on SC lovenox Seizure disorder on antiepileptics Left nondisplaced transcondylar humerus fracture s/p splint. Diarrhea s/p rectal tube placement Stable thrombocytopenia PEPPER resolved h/o CAD s/p CABG 24 Hour Events: Remained relatively well although still confused. Oriented to his name, not to palce/time. at bedside trying to orient him. Afebrile, HR 90's in A.fib, BP 120-140/80-100 mmHg, saturating well on RA. SAS 3-4. Objective Vital Signs & I&O Last 8 Hrs of Vitals and I&O: Intake & Output 03/18 0800 Intake Total 644 Output Total 1300 Balance -656 Intake, IV 644 Output, Urine 1300 Afebrile, HR 90's in A.fib, BP 120-140/80-100 mmHg, saturating well on RA. SAS 3-4. So far Input/output -- [id number] --> 24,442 positive Exam General Appearance: no apparent distress, alert, awake, comfortable, consiously sedated Head: atraumatic, normal appearance Ears, Nose, Throat: normal pharynx Neck: normal inspection, mild prominence of jugular veins Respiratory: chest non-tender Cardiovascular: regular rate/rhythm, edema, normal peripheral pulses, tachycardia Gastrointestinal: normal bowel sounds, soft, non-tender Extremities: normal inspection, 1-2+ EDEMA Skin: intact, MULTIPLE ECCHYMOTIC REGIONS Weaning Parameters Heart Rate: 73 IV Drips IV Drips: Pracedex 0.1mcg/kg D51/2NS @ 75ml/hr Nutrition Nutrition: P.O. diet Current Medications: Current Medications Sig/Louise Start time Last Medication Dose Route Stop Time Status Admin Acetaminophen 1,000 MG Q6P PRN 03/11 1415 AC 03/13 N/A 1 UNIT IV 0113 Atorvastatin Calcium 40 MG 1700 03/01 1700 AC 03/17 PO 1707 Clopidogrel Bisulfate 75 MG DAILY 03/14 0900 AC 08/ PO 0809 Dexmedetomidine HCl 400 MCG Q24H 03/17 0430 AC 08/ Sodium Chloride 96 ML IV 0603 Dextrose/Sodium 1,000 ML Q13H 03/16 1330 DC 03/18 Chloride IV 0603 Docusate Sodium 100 MG DAILY NEEDED 03/02 0930 AC 03/02 PO 1057 Enoxaparin Sodium 100 MG BID 03/16 2100 AC 03/18 SC 0809 Furosemide 40 MG ONCE ONE 03/18 0845 DC 03/18 IV 03/18 0846 0843 Lorazepam 0.5 MG Q4 HRS NEEDED PRN 03/16 1330 AC IV Magnesium Sulfate 1 GM ONCE ONE 03/17 0915 DC 03/17 Dextrose/Water 100 ML IV 03/17 1314 0919 Metoprolol Tartrate 25 MG BID 03/17 2100 AC 03/18 PO 0809 Metoprolol Tartrate 5 MG Q6 03/08 1200 DC 03/17 IV 1117 Morphine Sulfate 2 MG Q2P PRN 03/14 1415 AC 03/18 IV 0810 Pantoprazole Sodium 40 MG DAILY 03/08 1045 AC 03/18 IV 0808 Polyethylene Glycol 17 GM DAILY PRN 03/02 0930 AC 03/03 PO 0839 Potassium Chloride 10 MEQ ONCE ONE 03/17 0915 DC 03/17 IV 03/17 0916 0921 Potassium Chloride 10 MEQ ONCE ONE 03/17 0915 DC 03/17 IV 03/17 0916 1025 Senna 187 MG AT BEDTIME PRN 03/02 0930 AC 03/02 PO 1057 Valproate Sodium 1,000 MG Q12H 03/08 1200 AC 03/18 Sodium Chloride 100 ML IV 0003 Vitamin A/Vitamin D 1 YOKO BID 03/12 1515 AC 03/18 TOP 0810 Antibiotics Antibiotics? none Impression/Plan Impression/Problem List Impression: Patient is a 67 y/o M with PMH of chronic seizure disorder on valproate, CAD s/p CABG and bovine aortic valve replacement in 2013, Hodgkins lymphoma, HTN and HLD that was brought to the ED after he was found to be unresponsive. admitted with a working diagnosis of possible metabolic toxic encephalopathy due to seizures or cocaine abuse. Admitted to ICU on 02/26/18 -- intubated and extubated twice during this admission. Course/current management as follows. Respiratory Chronic hypoxic and hypercapnic respiratory failure Probably secondary to analgesia and sedation, extubated on 03/16/18. * Remains stable on RA now. * Continue pracedex drip for now, we will wean off by evening. * No concerns of infection although sputum culture was positive. Infectious Stable. Resp cultures might represent colonization Cardiology 1. Peripheral vascular disease Right SFA occlusion c/b limb ischemia f/b stenting on 03/13/18. Maintained on IV heparin and transitioned to SC lovenox now. Cotinue plavix. 2. History of A. fib Continue Lovenox 1mg/kg BID for stroke prevention and metoprolol 25mg BID for rate control. 3. Significant positive balance Patient is 25L positive so far, diffusly edematous. We will discontinue fluids, start oral feeding. Start with IV lasix 40mg BID today and proceed depending on response. 4. h/o CAD s/p CABG and bovine aortic valve replacement in 2013 Continue Atorvastatin 40mg daily, Clopidogrel 75mg daily, metoprolol. Hematology Thrombocytopenia - appears chronic Platelets of 156 today. h/o hodgkins lymphoma. Ruled out HIT. Adequate platelets on peripheral smear. we will monitor for now. Metabolic 1. PEPPER: Resolved Prerenal as improved with hydration. continue to avoid nephrotoxic meds. discontinued fluids today. MSK Left nondisplaced transcondylar humerus fracture: Persistent pain in the left arm. We will continue left arm splint and managed conservatively with pain medications and Ice packing. Xray did Alimentary Appears alert today. Started on pureed/thick diet. Diarrhea: resolved Patient developed diarrhea f/b rectal tube placement due to erythema in the buttock region. C.diff negative. Rectal tube removed. No bowel movements for the past few days. K is low today, continue to replete. Neurology Toxic metabolic encephalopathy Appears multifactorial - Possible etiologies being seizure activity, cocaine use, polysubstance abuse. Slowly improving so far. We will continue Ativan 0.5 mg Q4 hourly as needed and morphine 2mg IV Q2 for pain/agitation. Haldol as needed for agitation, daily QTc checking (hold >500) Seizure disorder Intial presenation Utox positive for cocaine and cannabis. Etiology appears multifactorial with alcohol/cocaine/cyst pressing temporal region. Intially on IV antiepileptics, keppra till 03/15/18 and IV valproic acid. We will transition to oral medications tomorrow. we will continue seizure and aspiration precautions. DVT prophylaxis: SC lovenox CODE STATUS: DNR/DNI Problem List: 1. Metabolic encephalopathy 2. Chronic respiratory failure with hypoxia and hypercapnia 3. Atrial fibrillation 4. Arterial occlusion 5. Seizure Pain Ratin Pain Location: left elbow Tomorrow's Labs & Rationales: cbc ICU bundle Plan DVT/Prophylaxis: mechanical, pharmacological Code Status: Do Not Resucitate
[2018-03-18 08:00] VITALS: BP 162/96
--- NOTE | 2018-03-18 08:14 | PN- CRCU ---
Subjective HPI/Critical Care Issues: The patient remains awake but confused. He is tracking with his eyes but minimally following commands. He is not able to offer complaints. There were no overnight events. Objective Current Medications: Current Medications Sig/Louise Start time Last Medication Dose Route Stop Time Status Admin Acetaminophen 1,000 MG Q6P PRN 03/11 1415 AC 03/13 N/A 1 UNIT IV 0113 Atorvastatin Calcium 40 MG 1700 03/01 1700 AC 03/17 PO 1707 Clopidogrel Bisulfate 75 MG DAILY 03/14 0900 AC 03/18 PO 0809 Dexmedetomidine HCl 400 MCG Q24H 03/17 0430 AC 03/18 Sodium Chloride 96 ML IV 0603 Dextrose/Sodium 1,000 ML Q13H 03/16 1330 AC 03/18 Chloride IV 0603 Docusate Sodium 100 MG DAILY NEEDED 03/02 0930 AC 03/02 PO 1057 Enoxaparin Sodium 100 MG BID 03/16 2100 AC 03/18 SC 0809 Lorazepam 0.5 MG Q4 HRS NEEDED PRN 03/16 1330 AC IV Magnesium Sulfate 1 GM ONCE ONE 03/17 0915 DC 03/17 Dextrose/Water 100 ML IV 03/17 1314 0919 Metoprolol Tartrate 25 MG BID 03/17 2100 AC 03/18 PO 0809 Metoprolol Tartrate 5 MG Q6 03/08 1200 DC 03/17 IV 1117 Morphine Sulfate 2 MG Q2P PRN 03/14 1415 AC 03/18 IV 0810 Pantoprazole Sodium 40 MG DAILY 03/08 1045 AC 03/18 IV 0808 Polyethylene Glycol 17 GM DAILY PRN 03/02 0930 AC 03/03 PO 0839 Potassium Chloride 10 MEQ ONCE ONE 03/17 0915 DC 03/17 IV 03/17 0916 0921 Potassium Chloride 10 MEQ ONCE ONE 03/17 0915 DC 03/17 IV 03/17 0916 1025 Senna 187 MG AT BEDTIME PRN 03/02 0930 AC 03/02 PO 1057 Valproate Sodium 1,000 MG Q12H 03/08 1200 AC 03/18 Sodium Chloride 100 ML IV 0003 Vitamin A/Vitamin D 1 YOKO BID 03/12 1515 AC 03/18 TOP 0810 Vital Signs & I&O Last 24 Hrs of Vitals and I&O: Vital Signs Date Time Temp Pulse Resp B/P B/P Pulse O2 O2 Flow FiO2 Mean Ox Delivery Rate 03/18 0809 109 168/105 03/18 0400 97 Room Air 03/18 0000 Room Air 03/18 0000 98.0 92 14 148/00 97 Room Air 03/17 2126 100 178/98 03/17 2000 Room Air 03/17 1600 97.4 78 18 130/80 98 Room Air 03/17 1200 97 Room Air Intake & Output 03/18 1600 03/18 0800 08 0000 Intake Total 644 621 Output Total 1300 900 Balance -656 -279 Intake, IV 644 621 Output, Urine 1300 900 Exam General Appearance: Confused, no apparent distress Head: atraumatic Neck: normal inspection, supple Respiratory: normal breath sounds, chest non-tender Cardiovascular: regular rate/rhythm, S1 and S2 heard Gastrointestinal: soft, non-tender Extremities: Bilateral lower extremity edema Skin Temp/Moisture Exam: Warm/Dry Results Last 24 Hrs of Lab Results: Laboratory Tests 03/18/18 0330: Anion Gap 9, Estimated GFR > 60, Glucose 93, Calcium 8.4, Phosphorus 3.2, Magnesium 1.8, Total Bilirubin 0.5, AST 21, ALT 20 L, Albumin 2.7 L, CBC w Diff MAN DIFF ORDERED, RBC 3.15 L, MCV 91.9, MCH 31.2 H, MCHC 33.9, RDW 15.2 H, MPV 10.3, Gran % 54.0, Lymphocytes % 18.2 L, Monocytes % 27.4 H, Eosinophils % 0.1, Basophils % 0.3, Absolute Granulocytes 6.1, Segmented Neutrophils 56, Absolute Lymphocytes 2.1, Lymphocytes 17 L, Monocytes 26 H, Absolute Monocytes 3.1 H, Absolute Eosinophils 0, Absolute Basophils 0, Metamyelocytes 1, Platelet Estimate ADEQUATE, Polychromasia 1+, Ovalocytes FEW, Fld Total RBCs Counted 100 Impression/Plan Impression/Plan Impression/Plan: 1. Chronic respiratory failure due to inability to maintain airway -stable postextubation. 2. Severe encephalopathy -toxic/metabolic. 3. S/P treatment for polymicrobial pneumonia. 4. Ischemic right foot due to SFA occlusion s/p stent placement on 03/13/18. 5. Positive fluid balance/fluid overload. 6. EtOH use, with illicit substance use, urine positive for cocaine on admission. 7. Heart disease with previous CABG and aortic valve replacement with bioprosthetic valve. 8. Paroxysmal atrial fibrillation. 9. Acute kidney injury, improved. 10. Dysphagia -speech therapy following. 10. Malnutrition. Recommendations: * Lasix given this morning with excellent diuresis, continue to monitor strict I 's and O's. * Monitor off Precedex and avoid sedating medications if able. * Continue with blood pressure control. * Check daily EKGs and follow QTC intervals in the setting of Haldol administration. * Monitor respiratory status closely. Maintain on strict aspiration precautions. * Attempt to advance. * Continue nebs/total respiratory care. * Monitor off antibiotics. Current sputum cultures are positive for gram- negative rods however likely colonization. Will restart antibiotics if the patient has a temperature spike or evidence of increasing sputum or new chest x- ray findings. * DVT prophylaxis at all times.\ * Continue all supportive care. Code Status: Do Not Resucitate
[2018-03-18 16:00] VITALS: BP 146/78
[2018-03-19] VITALS: BP 126/80
[2018-03-19 05:04] LABS: ABSOLUTE BASOPHIL COUNT 0 /CUMM (0.0-0.2); ABSOLUTE EOSINOPHIL COUNT 0 /CUMM (0.0-0.7); ABSOLUTE GRANULOCYTE CT 5.6 /CUMM (1.4-6.5); ABSOLUTE LYMPH COUNT 2.5 /CUMM (1.2-3.4); BASOPHIL % 0.1 % (0.0-2.0); EOSINOPHIL % 0.1 % (0-5); GRANULOCYTE % 46.5 % (42.2-75.2); HEMATOCRIT 32.8 % (42-52); MEAN CORPUSCULAR HGB CONC 33.9 G/DL (33.0-37.0); MEAN CORPUSCULAR VOLUME 91.4 FL (80.0-94.0); PLATELET COUNT 226 /CUMM (130-400); RBC DISTRIBUTION WIDTH 15.5 % (11.5-14.5); RED BLOOD CELL CT 3.59 /CUMM (4.70-6.10)
--- NOTE | 2018-03-19 06:53 | PN- Resident CRCU ---
Subjective HPI/CRCU Issues: Chronic hypoxic and hypercapnic respiratory failure.(resolved) Seizure disorder-stable on iv antiepileptic meds Toxic metabolic encephalopathy (imroving) Peripheral vascular disease s/p stent placement History of A. fib on s/c lovenox Acute kidney injury, resolved Stable thrombocytopenia, HI T negative. Left nondisplaced transcondylar humerus fracture s/p splint. Diarrhea s/p rectal tube placement.(resolved and rectal tube removed, C.diff negative) Malnutrition. 24 Hour Events: No overnight events. Patient remained afebrile overnight. Seen and examined this morning. Patient remained hemodynamically stable. He is on room air maintaining saturation 94%. Patient is more alert but still remained confused. He was trying to pull his catheter. He is able to following command minimally. He is not able to give any complaints. Patient is out of restraints. His rectal tube is out but still having English's catheter that's having blood-tinged urine. His input and output in 24 hours is 754/9400 Objective Vital Signs & I&O Last 8 Hrs of Vitals and I&O: Temperature 97.0, pulse 96, respiratory 24, blood pressure 126/80, oxygen saturation 93% on room air Exam General Appearance: well developed/nourished, no apparent distress, awake Head: atraumatic Neck: normal inspection, supple Respiratory: normal breath sounds, chest non-tender Cardiovascular: irregularly irregular Gastrointestinal: normal bowel sounds, soft, non-tender Extremities: b/l leg swelling, right more than left, b/l hand swelling. Cranial Nerves: normal hearing Skin: intact Skin Temp/Moisture Exam: Warm/Dry Sepsis Skin Exam (color): Normal for Ethnicity Weaning Parameters Heart Rate: 73 Current Medications: Current Medications Sig/Louise Start time Last Medication Dose Route Stop Time Status Admin Acetaminophen 1,000 MG .STK-MED ONE 03/18 1317 DC IV 03/18 1318 Acetaminophen 1,000 MG Q6P PRN 03/11 1415 AC 03/19 N/A 1 UNIT IV 0632 Atorvastatin Calcium 40 MG 1700 03/01 1700 AC 03/18 PO 1722 Clopidogrel Bisulfate 75 MG DAILY 03/14 0900 AC 03/19 PO 0814 Dexmedetomidine HCl 400 MCG Q24H 03/17 0430 DC 03/18 Sodium Chloride 96 ML IV 0603 Docusate Sodium 100 MG DAILY NEEDED 03/02 0930 AC 03/02 PO 1057 Enoxaparin Sodium 100 MG BID 03/16 2100 AC 03/19 SC 0814 Furosemide 40 MG ONCE ONE 03/18 1730 DC 03/18 IV 03/18 1731 1815 Lorazepam 0.5 MG Q4 HRS NEEDED PRN 03/16 1330 DC 03/18 IV 1315 Magnesium Oxide 400 MG ONE ONE 03/19 0715 DC 03/19 PO 03/19 0716 0815 Metoprolol Tartrate 25 MG BID 03/17 2100 AC 03/19 PO 0814 Morphine Sulfate 2 MG Q2P PRN 03/14 1415 AC 03/18 IV 2123 Pantoprazole Sodium 40 MG DAILY 03/08 1045 DC 03/18 IV 0808 Polyethylene Glycol 17 GM DAILY PRN 03/02 0930 AC 03/03 PO 0839 Potassium Chloride 40 MEQ ONCE ONE 03/18 2000 DC 03/18 PO 03/18 2001 2126 Potassium Chloride 40 MEQ ONCE ONE 03/18 1645 DC 03/18 PO 03/18 1646 1722 Potassium Chloride 40 MEQ ONCE ONE 03/18 1200 DC 03/18 PO 03/18 1201 1209 Senna 187 MG AT BEDTIME PRN 03/02 0930 AC 03/02 PO 1057 Valproate Sodium 1,000 MG Q12H 03/08 1200 AC 03/18 Sodium Chloride 100 ML IV 2313 Vitamin A/Vitamin D 1 YOKO BID 03/12 1515 AC 03/19 TOP 0815 Impression/Plan Impression/Problem List Impression: 67 y/o M with PMH of chronic seizure disorder on valproate, CAD s/p CABG and bovine aortic valve replacement in 2013, Hodgkins lymphoma, HTN and HLD that was brought to the ED after he was found to be unresponsive. Patient was found to have possible metabolic toxic encephalopathy due to seizures or cocaine abuse. Patient had acute respiratory failure and he was intubated and he was extubated successfully on 03/08. Patient was found to have superficial femoral artery occlusion status post stent placement on 03/13. Patient is on IV heparin due to his atrial fibrillation. Chronic hypoxic and hypercapnic respiratory failure:(Resolved) -Could be multifactorial but possibly due to oversedation as patient was on multiple medications that can oversedate him. patient was not able maintain the airway. -Extubated on 03/16/18 -Patient is on room air and maintaining saturation 94%. -Ativan and precedex were discontinued. -Patient sputum culture is showing gram-negative rods and serratia marcescens possibly due to chronic colonization but if patient develops fever or any signs of infection then we will start him on ceftriaxone 1 g per day. Seizure disorder:(Stable) -Patient's urine was positive for cocaine and cannabis. His seizure could be due to cocaine abuse. Could be due to alcohol abuse. -Continue IV valproic acid. -Seizure precautions. -Strict aspiration precautions Toxic metabolic encephalopathy:(Improving) -Possibly due to seizure activity, hypoxia, cocaine use, polysubstance abuse or could be due to pneumonia. -Continue supportive care. -We will continue monitoring his mental status level. His conscious level is improving but still remained confused. We will try to keep him off from Ativan and then monitor his mental status. -Seizure precautions. -Strict aspiration precautions -Check daily EKGs and follow QTC intervals in the setting of Haldol administration as needed. PEPPER:(Resolved) -Possibly due to dehydration. -Cr today is 1.2 -Avoid nephrotoxins medications - Diarrhea:(resolved) -His rectal tube has been removed. -C. difficile remqained negative. -His potassium is 4.1 today and magnesium was 1.6 that was repleted. Peripheral vascular disease s/p stent placement: -Right superficial femoral artery occlusion status post stent placement. -Stent placement was done for acute limb ischemia. -Continue Plavix. History of A. fib: -Continue Lovenox 1 mg per KG per hour for stroke prevention from A. fib, we will switch it to po anticoagulation before discharge. -Continue metoprolol 25 mg bid. -We'll follow cardiology recommendations. Left nondisplaced transcondylar humerus fracture: -We will continue left arm splint and managed conservatively. -Pain medication according to pain pathway. -Patient has ecchymosis around his left elbow. Diet: -Patient is more alert but still remained confused. -He is getting heart healthy diet, puree and honey thick consistency. DVT prophylaxis: Mechanical and patient is already on lovenox CODE STATUS: DNR/DNI Problem List: 1. Seizure 2. Metabolic encephalopathy 3. Atrial fibrillation 4. Arterial occlusion 5. Chronic respiratory failure with hypoxia and hypercapnia Pain Ratin Pain Location: none Tomorrow's Labs & Rationales: cbc/icu bundle Plan Respiratory: Patient remained stable after extubation on 03/16/2018. He is on room air and maintaining saturation 94%. Infectious Diseases: Sputum cultures showed gram-negative rods although patient is afebrile WBC count is 10.8. We will closely monitor him if he develops signs of infection(cough, sputum, fever) we will start ceftriaxone 1 g every day. Cardiovascular: Patient is hemodynamically stable and remained in A. fib. He is getting Lovenox for stroke prevention from [facility]. Hematology: Patient H&H remained stable. Today his H&H is 11.1/32.8 History of WBC count is 12.0 today we will keep monitoring it on the patient remained afebrile. Metabolic: Patient is stable his potassium today is 4.1 and magnesium was 1.6 that had been repleted Alimentary: Patient is getting heart healthy diet, pured and honey thick. Neurological: Patient is more alert but remained confused. We will try to keep him off from Ativan and then monitor his mental status level. DVT/Prophylaxis: mechanical, pharmacological Code Status: Do Not Resucitate
[2018-03-19 08:00] VITALS: BP 120/80
--- NOTE | 2018-03-19 09:22 | PN- Cardiology ---
Subjective Subjective: Patient seen at bedside. Patient is awake, responding to verbal stimuli. Answering questions appropriately but appears somewhat confused. Patient denies chest pain, shortness of breath. Objective Vital Signs and I&Os Vital Signs Date Time Temp Pulse Resp B/P B/P Pulse O2 O2 Flow FiO2 Mean Ox Delivery Rate 03/19 08 97 Room Air 03/19 08 97.4 98 27 120/80 97 Room Air 03/19 0400 94 Nasal 2.0L Cannula 03/19 0000 97.0 96 24 126/80 93 Room Air 03/19 0000 93 Room Air 03/18 2127 100 152/111 03/18 2000 96 Room Air 03/18 1600 97.2 94 31 146/78 92 Room Air 03/18 1600 98 Room Air 03/18 1200 92 Room Air Intake & Output 03/19 1600 03/19 0803/19 0000 03/18 1600 03/18 0803/18 0000 Intake Total 200 80 504 644 621 Output Total 2100 3000 4300 1300 900 Balance -1900 -2920 -3796 -656 -279 Intake, IV 200 0 474 644 621 Intake, Oral 0 80 30 Number 0 0 0 Bowel Movements Output, Urine 2100 3000 4300 1300 900 Physical Exam: General: lying in bed, appears somewhat confused, awake, arousable, responding to questions appropriately HEENT: NCAT, NO JVD Heart: s1s2, irregular rhythm, not tachycardic, +2/6 pansystolic murmur across precordium best heard at base nonradiating Lungs: CTA b/l Abd: soft, nt Ext: no peripheral edema; LLE wrapping in place Current Medications: Current Medications Sig/Louise Start time Last Medication Dose Route Stop Time Status Admin Acetaminophen 1,000 MG .STK-MED ONE 03/18 1317 DC IV 03/18 1318 Acetaminophen 1,000 MG Q6P PRN 03/11 1415 AC 03/19 N/A 1 UNIT IV 0632 Atorvastatin Calcium 40 MG 1700 03/01 1700 AC 03/18 PO 1722 Clopidogrel Bisulfate 75 MG DAILY 03/14 0900 AC 03/19 PO 0814 Dexmedetomidine HCl 400 MCG Q24H 03/17 0430 DC 03/18 Sodium Chloride 96 ML IV 0603 Docusate Sodium 100 MG DAILY NEEDED 03/02 930 AC 03/02 PO 1057 Enoxaparin Sodium 100 MG BID 03/16 2100 AC 03/19 SC 0814 Furosemide 40 MG ONCE ONE 03/18 1730 DC 08 IV 03/18 1731 1815 Lorazepam 0.5 MG Q4 HRS NEEDED PRN 03/16 1330 DC 03/18 IV 1315 Magnesium Oxide 400 MG ONE ONE 03/19 0715 DC 03/19 PO 03/19 0716 0815 Metoprolol Tartrate 25 MG BID 03/17 2100 AC 03/19 PO 0814 Morphine Sulfate 2 MG Q2P PRN 03/14 1415 AC 03/18 IV 2123 Pantoprazole Sodium 40 MG DAILY 03/08 1045 DC 03/18 IV 0808 Polyethylene Glycol 17 GM DAILY PRN 03/02 0930 AC 03/03 PO 0839 Potassium Chloride 40 MEQ ONCE ONE 03/18 2000 DC 03/18 PO 03/18 2001 2126 Potassium Chloride 40 MEQ ONCE ONE 03/18 1645 DC 03/18 PO 03/18 1646 1722 Potassium Chloride 40 MEQ ONCE ONE 03/18 1200 DC 03/18 PO 03/18 1201 1209 Senna 187 MG AT BEDTIME PRN 03/02 0930 AC 03/02 PO 1057 Valproate Sodium 1,000 MG Q12H 03/08 1200 AC 03/18 Sodium Chloride 100 ML IV 2313 Vitamin A/Vitamin D 1 YOKO BID 03/12 1515 03/19 TOP 0815 Results Last 48 Hrs of Labs/Mics: Laboratory Tests 03/19/18 0445: Anion Gap 5, Estimated GFR > 60, Glucose 89, Calcium 8.8, Phosphorus 3.7, Magnesium 1.6, Total Bilirubin 0.8, AST 28, ALT 24, Albumin 3.1 L, CBC w Diff MAN DIFF ORDERED, RBC 3.59 L, MCV 91.4, MCH 31.0, MCHC 33.9, RDW 15.5 H, MPV 10.0, Gran % 46.5, Lymphocytes % 20.4 L, Monocytes % 32.9 H, Eosinophils % 0.1 , Basophils % 0.1, Absolute Granulocytes 5.6, Absolute Lymphocytes 2.5, Absolute Monocytes 4.0 H, Absolute Eosinophils 0, Absolute Basophils 0, Platelet Estimate ADEQUATE, Polychromasia 1+, Anisocytosis 1+ 03/18/18 1440: Anion Gap 7, Estimated GFR > 60, BUN/Creatinine Ratio 8.2, Kwy-T-Akphvvupqyt Pept 22762 H 03/18/18 0330: Anion Gap 9, Estimated GFR > 60, Glucose 93, Calcium 8.4, Phosphorus 3.2, Magnesium 1.8, Total Bilirubin 0.5, AST 21, ALT 20 L, Albumin 2.7 L, CBC w Diff MAN DIFF ORDERED, RBC 3.15 L, MCV 91.9, MCH 31.2 H, MCHC 33.9, RDW 15.2 H, MPV 10.3, Gran % 54.0, Lymphocytes % 18.2 L, Monocytes % 27.4 H, Eosinophils % 0.1, Basophils % 0.3, Absolute Granulocytes 6.1, Segmented Neutrophils 56, Absolute Lymphocytes 2.1, Lymphocytes 17 L, Monocytes 26 H, Absolute Monocytes 3.1 H, Absolute Eosinophils 0, Absolute Basophils 0, Metamyelocytes 1, Platelet Estimate ADEQUATE, Polychromasia 1+, Ovalocytes FEW, Fld Total RBCs Counted 100 Recent Imaging Studies: telemetry: personally reviewed, atrial fibrillation rate well controlled, intermittent aberrantly conducted beats, rare PVCs Assessment/Plan Assessment/Plan 1. Seizure disorder/ecephalopathy 2. Atrial fibrillation, was not on chronic AC due to seizure disorder with refractory polysubstance abuse, currently on lovenox 100mg sq bid 3. Coronary artery disease status post CABG 4. Bioprosthetic aortic valve 5. Nonsustained wide complex tachycardia, likely NSVT 6. Peripheral vascular disease 7. 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 polysubstance abuse, including cocaine 9. Hypertension - well controlled today 10. Hyperlipidemia 11. ?thrombocytopenia; improved 12. PNA Plan: Continue with metoprolol, reasonable goal heart rate at this time is less than 110 bpm. Can continue with full dose articulation with subq Lovenox; transition to p.o. Eliquis prior to discharge. Continue with Plavix, statin. Continue telemetry? Yes
--- NOTE | 2018-03-19 10:16 | Transfer of Care Summary ---
Hospital Course Course Hospital Course: Reason of ICU admission: Patient had acute hypoxic respiratory failure after status epilepticus and was intubated. H/O presenting illness: 67 y/o M with PMH of chronic seizure disorder on valproate, CAD s/p CABG and bovine aortic valve replacement in 2013, Hodgkins lymphoma, HTN and HLD that was brought to the ED after he was found to be unresponsive. Interval events in ICU: Patient was intubated, admitted in ICU and placed on ventilator. Patient was treated for status epilepticus/seizure disorder with IV antiepileptic medications and for acute hypoxic respiratory failure. Patient was found to have atrial fibrillation and he was given IV heparin for anticoagulation. His heart rate was controlled with IV metoprolol. His blood and urine culture remained negative. His sputum culture was growing MSSA and Escherichia coli possibly due to aspiration pneumonia. He was treated for aspiration pneumonia for 7 days with Unasyn. Patient had nonsustained V. tach and cardiology recommended amiodarone drip and Medrol drip was discontinued on 03/12/2018. Patient remained intubated for 9 days. Patient was found to have cold right leg with diminished pulses. Right leg Doppler study showed occlusion of superficial femoral artery. Vascular consult was placed and they recommended CTA. Later on vascular surgery placed the stent. During the hospital stay patient had thrombocytopenia and heparin drip was stopped and patient was given argatroban drip. His HIT panel remained negative so he was again changed to IV heparin drip. Patient also had acute kidney injury that improved. Patient was extubated on 03/08/18 but patient was confused due to toxic metabolic encephalopathy. Possibly patient was oversedated due to multiple drug use he was on for sedation and analgesia, patient had acute hypoxic and hypercapnic respiratory failure. ABG was done that showed respiratory acidosis due to carbon dioxide retention and patient was having hypoxia. Intubation was done again on 03/14/2018. Patient's all sedating analgesic medications were discontinued including Haldol, Ativan, Dilaudid and gabapentin. Patient was kept on minimum possible dose of Ativan prn and when necessary Haldol. For agitation patient was given Precedex that was tapered. His QTC was checked and Haldol was avoided as much as possible. His respiration improved and he was extubated again on 03/16/18. Patient was given supplemental oxygen and he was able to maintain saturation above 92%. His IV heparin was changed to Lovenox as he was not able to take by mouth. Later on his mental status improved and swallow evaluation was done. Patient was able to take his medications orally. Patient is still confused but able to take oral diet. He is on heart healthy pure and honey thick diet to prevent aspiration. Mechanical ventilation: Patient was intubated on and extubated on 03/08/18. Patient was again intubated on 03/14/2018 and extubated on 03/16/2018. NIPPV: None Antibiotic plan: Completed 7 days course of Unasyn for possible aspiration pneumonia. Catheter/Lines plan: Patient has English's catheter and PICC line. Things to be follow on the floor: -Please change his anticoagulation (lovenox) to by mouth Eliquis before the discharge. -Please follow PT/OT evaluation. -Please avoid oversedation. -Please watch for QTC prolongation. Use Haldol or Zyprexa for delirium when necessary daily check for QTC after Haldol administration. Check her magnesium every day. -Patient develops fever, cough, sputum or signs of infection then consider starting him on ceftriaxone 1 gm daily. Nutrition: Patient is on heart healthy diet with pure and honey thick diet. DVT prophylaxis: Mechanical and he is lovenox. Code status: DNR/DNI Assessment/Plan: Chronic hypoxic and hypercapnic respiratory failure:(Resolved) -Could be multifactorial but possibly due to oversedation as patient was on multiple medications that can oversedate him. patient was not able maintain the airway. -Extubated on 03/16/18 -Patient is on room air and maintaining saturation 94%. -His ativan and precedex were discontinued. -Patient sputum culture is showing gram-negative rods and serratia marcescens possibly due to chronic colonization but if patient develops fever or any signs of infection then we will start him on ceftriaxone 1 g per day. Seizure disorder: -Patient's urine was positive for cocaine and cannabis. His seizure could be due to cocaine abuse. Could be due to alcohol abuse. -Continue IV valproic acid. -Seizure precautions. -Strict aspiration precautions Toxic metabolic encephalopathy:(improving) -Possibly due to seizure activity, hypoxia, cocaine use, polysubstance abuse or could be due to pneumonia. -Continue supportive care. -We will continue monitoring his mental status level. His conscious level is improving but still remained confused. We will try to keep him off from Ativan and then monitor his mental status. -Seizure precautions. -Strict aspiration precautions -Check daily EKGs and follow QTC intervals in the setting of Haldol administration as needed. -Haldol or zyprexa can be used PRN for agitation. PEPPER:(Resolved) -Possibly due to dehydration. -Cr today is 1.2 -Avoid nephrotoxins medications Diarrhea:(resolved) -His rectal tube has been removed. -C. difficile remqained negative. -His potassium is 4.1 today and magnesium was 1.6 that was repleted. Peripheral vascular disease s/p stent placement: -Right superficial femoral artery occlusion status post stent placement. -Stent placement was done for acute limb ischemia. -Continue Plavix. History of A. fib: -Continue Lovenox 1 mg per KG per hour for stroke prevention from A. fib, we will switch it to po anticoagulation before discharge. -Continue metoprolol 25 mg bid. -We'll follow cardiology recommendations. Left nondisplaced transcondylar humerus fracture: -We will continue left arm splint and managed conservatively. -Pain medication according to pain pathway. -Patient has ecchymosis around his left elbow. Diet: -Patient is more alert but still remained confused. -He is getting heart healthy diet, puree and honey thick consistency. DVT prophylaxis: Mechanical and patient is already on lovenox CODE STATUS: DNR/DNI
--- NOTE | 2018-03-19 13:20 | PN- CRCU ---
Subjective HPI/Critical Care Issues: IMproving delirium resolving fatigued In pain occ Off oxygen Objective Current Medications: Current Medications Sig/Louise Start time Last Medication Dose Route Stop Time Status Admin Acetaminophen 1,000 MG .STK-MED ONE 03/18 1317 DC IV 03/18 1318 Acetaminophen 1,000 MG Q6P PRN 03/11 1415 03/19 N/A 1 UNIT IV 0632 Atorvastatin Calcium 40 MG 1700 03/01 1700 AC 03/18 PO 1722 Clopidogrel Bisulfate 75 MG DAILY 03/14 09 AC 03/19 PO 0814 Dexmedetomidine HCl 400 MCG Q24H 03/17 0430 DC 03/18 Sodium Chloride 96 ML IV 0603 Docusate Sodium 100 MG DAILY NEEDED 03/02 0930 AC 03/02 PO 1057 Enoxaparin Sodium 100 MG BID 03/16 2100 AC 03/19 SC 0814 Furosemide 40 MG ONCE ONE 03/18 1730 DC 08 IV 03/18 1731 1815 Lorazepam 0.5 MG Q4 HRS NEEDED PRN 03/16 1330 DC 03/18 IV 1315 Magnesium Oxide 400 MG ONE ONE 03/19 0715 DC 03/19 PO 03/19 0716 0815 Metoprolol Tartrate 25 MG BID 03/17 2100 AC 03/19 PO 0814 Morphine Sulfate 2 MG Q2P PRN 03/14 1415 AC 03/18 IV 2123 Pantoprazole Sodium 40 MG DAILY 03/08 1045 DC 08 IV 0808 Polyethylene Glycol 17 GM DAILY PRN 03/02 0930 AC 03/03 PO 0839 Potassium Chloride 40 MEQ ONCE ONE 03/18 2000 DC 03/18 PO 03/18 2001 212 Potassium Chloride 40 MEQ ONCE ONE 03/18 1645 DC 08 PO 03/18 1646 1722 Senna 187 MG AT BEDTIME PRN 03/02 0930 AC 03/02 PO 1057 Valproate Sodium 1,000 MG Q12H 03/08 1200 AC 03/19 Sodium Chloride 100 ML IV 1158 Vitamin A/Vitamin D 1 YOKO BID 03/12 1515 03/19 TOP 0815 Vital Signs & I&O Last 24 Hrs of Vitals and I&O: Vital Signs Date Time Temp Pulse Resp B/P B/P Pulse O2 O2 Flow FiO2 Mean Ox Delivery Rate 03/19 0800 97 Room Air 03/19 0800 97.4 98 27 120/80 97 Room Air 03/19 0400 94 Nasal 2.0L Cannula 03/19 0000 97.0 96 24 126/80 93 Room Air / 0000 93 Room Air 03/18 2127 100 152/111 03/18 2000 96 Room Air 03/18 1600 97.2 94 31 146/78 92 Room Air 03/18 1600 98 Room Air Intake & Output 03/19 1600 08/ 0800 08/ 0000 Intake Total 200 80 Output Total 2100 3000 Balance -1900 -2920 Intake, IV 200 0 Intake, Oral 0 80 Number 0 0 Bowel Movements Output, Urine 2100 3000 Impression/Plan Impression/Plan Impression/Plan: Eomi Chest clear cvs aure, afib abd soft No edema Fracture left Ue Pupils small Delirium better This is a 67-year-old gentleman with history of hypertension, hyperlipidemia, CABG, previous bovine aortic valve replacement, previous history of Hodgkin's lymphoma in the late with previous chemoradiation therapy leading to significant neuropathy, significant medical marijuana usage, alcohol use on and off, multiple surgeries and chronic pain, previous seizure disorder started in 2014 and since then followed by [facility] seizure clinic (compliant) here with encephelopathy multifactorial (not having any seizures) * REsolved Chronic resp failure due to inability to maintain his airway due to severe encephelopathy. S/p rx for polymicrobial pna now s/p extubation * IMproving encephelopathy -with delirium with prior seizure now on appropriate medication. He does have chronic issues as noted from before including a chronic arachnoid cyst, polysubstance use, alcohol use, sig cocaine use and small vessel ischemia etc. Since admission he has had severe delirium which has been unable to be treated. He has been tried on several medications. Neurology did recommend continuing these medications. 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) s/p surg with stent on 03/13 * Stable Thrombocytopenia - HIT neg now back on heparin * Significant alcohol use by history with probable dts, Marijuana, sig cocaine in the urine upon admission * Sig Heart disease with previous CABG and aortic valve replacement with bioprosthetic valve with previous arrythmia, now in pafib * Previous history of nephrolithiasis, now with john (improving) * Nasal fracture and displaced transcondylar fracture of distal left humerus, conservative rx per ortho * 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
[2018-03-19 16:00] VITALS: BP 145/82
[2018-03-20] VITALS: BP 138/00
[2018-03-20 05:13] LABS: ABSOLUTE BASOPHIL COUNT 0 /CUMM (0.0-0.2); ABSOLUTE EOSINOPHIL COUNT 0 /CUMM (0.0-0.7); ABSOLUTE GRANULOCYTE CT 6.6 /CUMM (1.4-6.5); ABSOLUTE LYMPH COUNT 2.3 /CUMM (1.2-3.4); ABSOLUTE MONOCYTE COUNT 3.3 /CUMM (0.10-0.60); BASOPHIL % 0.3 % (0.0-2.0); EOSINOPHIL % 0.1 % (0-5); GRANULOCYTE % 53.9 % (42.2-75.2); HEMATOCRIT 33.9 % (42-52); MEAN CORPUSCULAR HGB CONC 33.9 G/DL (33.0-37.0); MEAN CORPUSCULAR VOLUME 91.5 FL (80.0-94.0); MEAN PLATELET VOLUME 10.4 FL (7.4-10.4); RBC DISTRIBUTION WIDTH 15.8 % (11.5-14.5); RED BLOOD CELL CT 3.71 /CUMM (4.70-6.10); WHITE BLOOD CELL COUNT 12.2 /CUMM (4.8-10.8)
[2018-03-20 05:51] LABS: PLATELET COUNT ND /CUMM (130-400)
--- NOTE | 2018-03-20 07:08 | PN- Resident CRCU ---
Subjective HPI/CRCU Issues: Chronic hypoxic and hypercapnic respiratory failure.(Resolved) Seizure disorder-stable on antiepileptic meds Toxic metabolic encephalopathy (imroving) Peripheral vascular disease s/p stent placement History of A. fib on s/c lovenox Acute kidney injury, resolved Stable thrombocytopenia, HIT negative. Left nondisplaced transcondylar humerus fracture s/p splint. Diarrhea s/p rectal tube placement.(resolved and rectal tube removed, C.diff negative) Nonsustained VT Malnutrition. 24 Hour Events: No overnight events. Patient remained afebrile. Seen and examined this morning. He is in restraints due to agitation since yesterday afternoon. He was given 1 dose of Zyprexa for agitation. This morning patient was more alert but he is still confused. He didn't have any complaint considering his confusion. His folate's catheter will be removed today. Patient is respiratory brennan stable maintaining saturation 95% on room air. Patient had 6 beats of nonsustained V. tach probably due to low magnesium. Patient will get PT evaluation today and possible out of bed to chair today. Objective Vital Signs & I&O Last 8 Hrs of Vitals and I&O: Intake & Output 03/20 1600 03/20 0800 03/20 0000 Intake Total 450 180 360 Output Total 245 471 9538 Balance 150 -520 -1240 Intake, IV 150 120 Intake, Oral 300 60 360 Number 0 Bowel Movements Output, Urine 093 093 6735 Laboratory Tests 03/20 0355 Chemistry Sodium (137 - 145 mmol/L) 142 Potassium (3.5 - 5.1 mmol/L) 3.8 Chloride (98 - 107 mmol/L) 103 Carbon Dioxide (22 - 30 mmol/L) 29 Anion Gap (5 - 16) 10 BUN (9 - 20 mg/dL) 11 Creatinine (0.7 - 1.2 mg/dL) 1.3 H Estimated GFR (>60 ml/min) 55 L Glucose (65 - 99 mg/dL) 86 Calcium (8.4 - 10.2 mg/dL) 8.4 Phosphorus (2.5 - 4.5 mg/dL) 3.7 Magnesium (1.6 - 2.3 mg/dL) 1.7 Total Bilirubin (0.2 - 1.3 mg/dL) 0.7 AST (17 - 59 U/L) 28 ALT (21 - 72 U/L) 26 Albumin (3.5 - 5.0 g/dL) 2.9 L Hematology CBC w Diff MAN DIFF ORDERED WBC (4.8 - 10.8 /CUMM) 12.2 H RBC (4.70 - 6.10 /CUMM) 3.71 L Hgb (14.0 - 18.0 G/DL) 11.5 L Hct (42 - 52 %) 33.9 L MCV (80.0 - 94.0 FL) 91.5 MCH (27.0 - 31.0 PG) 31.0 MCHC (33.0 - 37.0 G/DL) 33.9 RDW (11.5 - 14.5 %) 15.8 H Plt Count (130 - 400 /CUMM) ND MPV (7.4 - 10.4 FL) 10.4 Gran % (42.2 - 75.2 %) 53.9 Lymphocytes % (20.5 - 51.1 %) 18.6 L Monocytes % (1.7 - 9.3 %) 27.1 H Eosinophils % (0 - 5 %) 0.1 Basophils % (0.0 - 2.0 %) 0.3 Absolute Granulocytes (1.4 - 6.5 /CUMM) 6.6 H Segmented Neutrophils (42.2 - 75.2 %) 58 Band Neutrophils (0.0 - 5.0 %) 1 Absolute Lymphocytes (1.2 - 3.4 /CUMM) 2.3 Lymphocytes (20.5 - 51.1 %) 19 L Monocytes (1.7 - 9.3 %) 22 H Absolute Monocytes (0.10 - 0.60 /CUMM) 3.3 H Absolute Eosinophils (0.0 - 0.7 /CUMM) 0 Absolute Basophils (0.0 - 0.2 /CUMM) 0 Platelet Estimate (ADEQUATE) ADEQUATE Polychromasia 1+ Ovalocytes FEW Stomatocytes FEW Other Body Source Fld Total RBCs Counted (%) 100 Intake & Output 03/20 1600 Intake Total 450 Output Total 300 Balance 150 Intake, IV 150 Intake, Oral 300 Number 0 Bowel Movements Output, Urine 300 Exam General Appearance: well developed/nourished, no apparent distress, awake Head: atraumatic, normal appearance Neck: normal inspection, supple Respiratory: normal breath sounds, chest non-tender Cardiovascular: irregularly irregular Gastrointestinal: normal bowel sounds, soft, non-tender Extremities: Right foot swelling. Skin Temp/Moisture Exam: Warm/Dry Sepsis Skin Exam (color): Normal for Ethnicity Weaning Parameters Heart Rate: 73 Current Medications: Current Medications Sig/Louise Start time Last Medication Dose Route Stop Time Status Admin Acetaminophen 0 .STK-MED ONE 03/20 09 DC IV Acetaminophen 1,000 MG Q6P PRN 03/11 1415 AC 03/20 N/A 1 UNIT IV 0900 Atorvastatin Calcium 40 MG 1700 03/01 1700 AC 03/19 PO 1700 Clopidogrel Bisulfate 75 MG DAILY 03/14 0900 AC 03/20 PO 0900 Divalproex Sodium 1,000 MG BID 03/20 1039 AC 03/20 PO 1213 Divalproex Sodium 1,000 MG BID 03/20 1035 DC PO Docusate Sodium 100 MG DAILY NEEDED 03/02 930 AC 03/02 PO 1057 Enoxaparin Sodium 100 MG BID 03/16 2100 AC 03/20 SC 0901 Levetiracetam 500 MG BID 03/20 1009 AC 03/20 PO 1213 Magnesium Oxide 400 MG ONE ONE 03/20 0715 DC 03/20 PO 03/20 0716 0900 Magnesium Sulfate 1 GM ONCE ONE 03/20 1130 AC 03/20 Dextrose/Water 100 ML IV 03/20 1529 1337 Metoprolol Tartrate 37.5 MG BID 03/20 2100 DC PO Metoprolol Tartrate 50 MG BID 03/20 2100 AC PO Metoprolol Tartrate 25 MG BID 03/17 2100 DC 03/20 PO 0906 Morphine Sulfate 2 MG Q2P PRN 03/14 1415 AC 03/18 IV 2123 Olanzapine 2.5 MG ONCE ONE 03/19 1545 DC 03/19 IM 03/19 1546 1552 Polyethylene Glycol 17 GM DAILY PRN 03/02 0930 AC 03/03 PO 0839 Potassium Chloride 40 MEQ ONCE ONE 03/20 715 DC 03/20 PO 03/20 0716 0901 Senna 187 MG AT BEDTIME PRN 03/02 0930 AC 03/02 PO 1057 Valproate Sodium 1,000 MG Q12H 03/08 1200 DC 03/20 Sodium Chloride 100 ML IV 0008 Vitamin A/Vitamin D 1 YOKO BID 03/12 1515 AC 03/20 TOP 0901 Impression/Plan Impression/Problem List Impression: 67 y/o M with PMH of chronic seizure disorder on valproate, CAD s/p CABG and bovine aortic valve replacement in 2013, Hodgkins lymphoma, HTN and HLD that was brought to the ED after he was found to be unresponsive. Patient was found to have possible metabolic toxic encephalopathy due to seizures or cocaine abuse. Patient had acute respiratory failure and he was intubated and he was extubated successfully on 03/08. Patient was found to have superficial femoral artery occlusion status post stent placement on 03/13. Patient is on IV heparin due to his atrial fibrillation. Chronic hypoxic and hypercapnic respiratory failure:(Resolved) -Could be multifactorial but possibly due to oversedation as patient was on multiple medications that can oversedate him. patient was not able maintain the airway. -Extubated on 03/16/18 -Patient is on room air and maintaining saturation 95%. -Patient sputum culture is showing gram-negative rods and serratia marcescens possibly due to chronic colonization but if patient develops fever or any signs of infection then we will start him on ceftriaxone 1 g per day. -History of WBC count is 12.2 although is afebrile. We will keep monitoring it. Seizure disorder:(Stable) -Patient's urine was positive for cocaine and cannabis. His seizure could be due to cocaine abuse. Could be due to alcohol abuse. -Patient's antiseizure medications were changed to by mouth. We will continue his valproic acid 1000mg twice a day and Keppra 500 twice a day. -Appreciate neurology input regarding antiseizure medications. -Seizure precautions. -Strict aspiration precautions Toxic metabolic encephalopathy:(Improving) -Possibly due to seizure activity, hypoxia, cocaine use, polysubstance abuse or could be due to pneumonia. -Continue supportive care. -We will continue monitoring his mental status level. His conscious level is improving but still remained confused. -Seizure precautions. -Strict aspiration precautions -His QTC is 536 and he received one dose of Zyprexa yesterday. We will keep providing any QTC prolonging medications. PEPPER: -Possibly due to dehydration. -Cr today is 1.3 -Avoid nephrotoxins medications -We will encourage patient to take free water orally but if he couldn't take then we will give him one bag of D5 water. -Please English's catheter was discontinued to prevent infection. Patient can use diapers if not then we can use external catheter. Diarrhea:(resolved) -His rectal tube has been removed. -C. difficile remqained negative. -His potassium is 3.8 today and magnesium was 1.7 those were repleted. Peripheral vascular disease s/p stent placement: -Right superficial femoral artery occlusion status post stent placement. -Stent placement was done for acute limb ischemia. -Continue Plavix. History of A. fib: -Continue Lovenox 1 mg per KG per hour for stroke prevention from A. fib, we will switch it to po anticoagulation before discharge. -His metoprolol was increased to 50 twice a day considering his tachycardia. -We'll follow cardiology recommendations. Nonsustained VT: -Patient had 6 beats of nonsustained VT. Patient remained hemodynamically stable. -His magnesium was low that was repleted. -Keep monitoring on monitoring and evaluation advisor. His metoprolol dose was increased to 50 mg twice a day. Left nondisplaced transcondylar humerus fracture: -We will continue left arm splint and managed conservatively. -Pain medication according to pain pathway. -Patient has ecchymosis around his left elbow. Diet: -Patient is more alert but still remained confused. -He is getting heart healthy diet, puree and honey thick consistency. DVT prophylaxis: Mechanical and patient is already on lovenox CODE STATUS: DNR/DNI Problem List: 1. Atrial fibrillation 2. Arterial occlusion 3. Metabolic encephalopathy 4. Seizure Pain Ratin Pain Location: none Tomorrow's Labs & Rationales: cbc/icu bundle Plan DVT/Prophylaxis: mechanical, pharmacological Code Status: Do Not Resucitate
[2018-03-20 08:00] VITALS: BP 140/0
--- NOTE | 2018-03-20 09:20 | PN- Cardiology ---
Subjective Subjective: Patient seen at bedside. Patient remains disoriented. However patient is awake , alert, responding to verbal stimuli. Objective Vital Signs and I&Os Vital Signs Date Time Temp Pulse Resp B/P B/P Pulse O2 O2 Flow FiO2 Mean Ox Delivery Rate 03/20 906 97 140/0 03/20 08 95 Room Air 03/20 08 97.2 92 27 140/0 95 Room Air 08 0000 Room Air 08 0000 97.7 98 22 138/00 95 Room Air 03/19 2154 100 124/00 03/19 1600 97.0 97 20 145/82 94 Room Air Intake & Output 03/20 08 08/ 0000 03/19 1600 03/19 08/ 0000 Intake Total 180 360 200 200 80 Output Total 700 1612 955 3994 3000 Balance -520 -1240 -500 -1900 -2920 Intake, IV 120 100 200 0 Intake, Oral 60 360 100 0 80 Number 0 0 Bowel Movements Output, Urine 700 4602 854 0250 3000 Physical Exam: General: lying in bed, appears somewhat confused, awake, arousable, responding to questions appropriately HEENT: NCAT, NO JVD Heart: s1s2, irregular rhythm, not tachycardic, +2/6 pansystolic murmur across precordium best heard at base nonradiating Lungs: CTA b/l Abd: soft, nt Ext: no peripheral edema; LLE wrapping in place Current Medications: Current Medications Sig/Louise Start time Last Medication Dose Route Stop Time Status Admin Acetaminophen 0 .STK-MED ONE 03/20 900 DC IV Acetaminophen 1,000 MG Q6P PRN 03/11 1415 AC 03/20 N/A 1 UNIT IV 0900 Atorvastatin Calcium 40 MG 1700 03/01 1700 AC 03/19 PO 1700 Clopidogrel Bisulfate 75 MG DAILY 03/14 09 AC 03/20 PO 0900 Docusate Sodium 100 MG DAILY NEEDED 03/02 930 AC 03/02 PO 1057 Enoxaparin Sodium 100 MG BID 03/16 2100 AC 03/20 SC 0901 Magnesium Oxide 400 MG ONE ONE 03/20 0715 DC 03/20 PO 03/20 0716 0900 Metoprolol Tartrate 25 MG BID 03/17 2100 AC 03/20 PO 09 Morphine Sulfate 2 MG Q2P PRN 03/14 1415 AC 03/18 IV 2123 Olanzapine 2.5 MG ONCE ONE 03/19 1545 DC 03/19 IM 03/19 1546 1552 Polyethylene Glycol 17 GM DAILY PRN 03/02 09 03/03 PO 0839 Potassium Chloride 40 MEQ ONCE ONE 03/20 0715 DC 03/20 PO 03/20 0716 0901 Senna 187 MG AT BEDTIME PRN 03/02 0930 AC 03/02 PO 1057 Valproate Sodium 1,000 MG Q12H 03/08 1200 03/20 Sodium Chloride 100 ML IV 0008 Vitamin A/Vitamin D 1 YOKO BID 03/12 1515 03/20 [facility] 0901 Results Last 48 Hrs of Labs/Mics: Laboratory Tests 03/20/18 0355: Anion Gap 10, Estimated GFR 55 L, Glucose 86, Calcium 8.4, Phosphorus 3.7, Magnesium 1.7, Total Bilirubin 0.7, AST 28, ALT 26, Albumin 2.9 L, CBC w Diff MAN DIFF ORDERED, RBC 3.71 L, MCV 91.5, MCH 31.0, MCHC 33.9, RDW 15.8 H, Plt Count ND, MPV 10.4, Gran % 53.9, Lymphocytes % 18.6 L, Monocytes % 27.1 H, Eosinophils % 0.1, Basophils % 0.3, Absolute Granulocytes 6.6 H, Segmented Neutrophils 58, Band Neutrophils 1, Absolute Lymphocytes 2.3, Lymphocytes 19 L, Monocytes 22 H, Absolute Monocytes 3.3 H, Absolute Eosinophils 0, Absolute Basophils 0, Platelet Estimate ADEQUATE, Polychromasia 1+, Ovalocytes FEW, Stomatocytes FEW, Fld Total RBCs Counted 100 03/19/18 0445: Anion Gap 5, Estimated GFR > 60, Glucose 89, Calcium 8.8, Phosphorus 3.7, Magnesium 1.6, Total Bilirubin 0.8, AST 28, ALT 24, Albumin 3.1 L, CBC w Diff MAN DIFF ORDERED, RBC 3.59 L, MCV 91.4, MCH 31.0, MCHC 33.9, RDW 15.5 H, MPV 10.0, Gran % 46.5, Lymphocytes % 20.4 L, Monocytes % 32.9 H, Eosinophils % 0.1 , Basophils % 0.1, Absolute Granulocytes 5.6, Absolute Lymphocytes 2.5, Absolute Monocytes 4.0 H, Absolute Eosinophils 0, Absolute Basophils 0, Platelet Estimate ADEQUATE, Polychromasia 1+, Anisocytosis 1+ 03/18/18 1440: Anion Gap 7, Estimated GFR > 60, BUN/Creatinine Ratio 8.2, [id number] Pept 12664 H Recent Imaging Studies: Telemetry: Personally reviewed, Garret liseth with good rate control, 6 beats of NSVT Assessment/Plan Assessment/Plan 1. Seizure disorder/ecephalopathy 2. Atrial fibrillation, was not on chronic AC due to seizure disorder with refractory polysubstance abuse, currently on lovenox 100mg sq bid 3. Coronary artery disease status post CABG 4. Bioprosthetic aortic valve 5. Nonsustained wide complex tachycardia, likely NSVT 6. Peripheral vascular disease 7. 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 polysubstance abuse, including cocaine 9. Hypertension 10. Hyperlipidemia 11. ?thrombocytopenia; improved 12. PNA Plan: Patient continues to be in atrial fibrillation, but no RVR. One run of wide complex tachycardia, nonsustained 6 beats overnight. This may be recurrent NSVT. Metoprolol can be increased to 50 mg p.o. twice daily. Can continue with full dose articulation with subq Lovenox; transition to p.o. Eliquis prior to discharge. Continue with Plavix, statin. Continue telemetry? Yes
--- NOTE | 2018-03-20 09:48 | PN- CRCU ---
Subjective HPI/Critical Care Issues: Doing ok Mild improvement Still confused and fatigued Creat has increased today to 1.3 prob poor po intake Afib with 6 beats of nsvt Mag low Objective Current Medications: Current Medications Sig/Louise Start time Last Medication Dose Route Stop Time Status Admin Acetaminophen 0 .STK-MED ONE 03/20 900 DC IV Acetaminophen 1,000 MG Q6P PRN 03/11 1415 AC 03/20 N/A 1 UNIT IV 0900 Atorvastatin Calcium 40 MG 1700 03/01 1700 AC 03/19 PO 1700 Clopidogrel Bisulfate 75 MG DAILY 03/14 09 AC 03/20 PO 0900 Docusate Sodium 100 MG DAILY NEEDED 03/02 09 AC 03/02 PO 1057 Enoxaparin Sodium 100 MG BID 03/16 2100 AC 03/20 SC 0901 Magnesium Oxide 400 MG ONE ONE 03/20 0715 DC 03/20 PO 03/20 0716 0900 Metoprolol Tartrate 25 MG BID 03/17 2100 AC 03/20 PO 0906 Morphine Sulfate 2 MG Q2P PRN 03/14 1415 AC 03/18 IV 2123 Olanzapine 2.5 MG ONCE ONE 03/19 1545 DC 03/19 IM 03/19 1546 1552 Polyethylene Glycol 17 GM DAILY PRN 03/02 0930 AC 03/03 PO 0839 Potassium Chloride 40 MEQ ONCE ONE 03/20 715 DC 03/20 PO 03/20 0716 0901 Senna 187 MG AT BEDTIME PRN 03/02 0930 AC 03/02 PO 1057 Valproate Sodium 1,000 MG Q12H 03/08 1200 AC 03/20 Sodium Chloride 100 ML IV 0008 Vitamin A/Vitamin D 1 YOKO BID 03/12 1515 03/20 TOP 0901 Vital Signs & I&O Last 24 Hrs of Vitals and I&O: Vital Signs Date Time Temp Pulse Resp B/P B/P Pulse O2 O2 Flow FiO2 Mean Ox Delivery Rate 03/20 906 97 140/0 03/20 08 95 Room Air 03/20 08 97.2 92 27 140/0 95 Room Air 03/20 0000 Room Air 03/20 0000 97.7 98 22 138/00 95 Room Air 03/19 2154 100 124/00 03/19 1600 97.0 97 20 145/82 94 Room Air Intake & Output 03/20 1600 03/20 0800 03/20 0000 Intake Total 180 360 Output Total 700 1600 Balance -520 -1240 Intake, IV 120 Intake, Oral 60 360 Output, Urine 700 1600 Laboratory Tests 03/20 03/19 0355 0445 Chemistry Sodium (137 - 145 mmol/L) 142 141 Potassium (3.5 - 5.1 mmol/L) 3.8 4.1 Chloride (98 - 107 mmol/L) 103 104 Carbon Dioxide (22 - 30 mmol/L) 29 32 H Anion Gap (5 - 16) 10 5 BUN (9 - 20 mg/dL) 11 9 Creatinine (0.7 - 1.2 mg/dL) 1.3 H 1.2 Estimated GFR (>60 ml/min) 55 L > 60 Glucose (65 - 99 mg/dL) 86 89 Calcium (8.4 - 10.2 mg/dL) 8.4 8.8 Phosphorus (2.5 - 4.5 mg/dL) 3.7 3.7 Magnesium (1.6 - 2.3 mg/dL) 1.7 1.6 Total Bilirubin (0.2 - 1.3 mg/dL) 0.7 0.8 AST (17 - 59 U/L) 28 28 ALT (21 - 72 U/L) 26 24 Albumin (3.5 - 5.0 g/dL) 2.9 L 3.1 L Hematology CBC w Diff MAN DIFF ORDERED MAN DIFF ORDERED WBC (4.8 - 10.8 /CUMM) 12.2 H 12.0 H RBC (4.70 - 6.10 /CUMM) 3.71 L 3.59 L Hgb (14.0 - 18.0 G/DL) 11.5 L 11.1 L Hct (42 - 52 %) 33.9 L 32.8 L MCV (80.0 - 94.0 FL) 91.5 91.4 MCH (27.0 - 31.0 PG) 31.0 31.0 MCHC (33.0 - 37.0 G/DL) 33.9 33.9 RDW (11.5 - 14.5 %) 15.8 H 15.5 H Plt Count (130 - 400 /CUMM) ND 226 MPV (7.4 - 10.4 FL) 10.4 10.0 Gran % (42.2 - 75.2 %) 53.9 46.5 Lymphocytes % (20.5 - 51.1 %) 18.6 L 20.4 L Monocytes % (1.7 - 9.3 %) 27.1 H 32.9 H Eosinophils % (0 - 5 %) 0.1 0.1 Basophils % (0.0 - 2.0 %) 0.3 0.1 Absolute Granulocytes (1.4 - 6.5 /CUMM) 6.6 H 5.6 Segmented Neutrophils (42.2 - 75.2 %) 58 Band Neutrophils (0.0 - 5.0 %) 1 Absolute Lymphocytes (1.2 - 3.4 /CUMM) 2.3 2.5 Lymphocytes (20.5 - 51.1 %) 19 L Monocytes (1.7 - 9.3 %) 22 H Absolute Monocytes (0.10 - 0.60 /CUMM) 3.3 H 4.0 H Absolute Eosinophils (0.0 - 0.7 /CUMM) 0 0 Absolute Basophils (0.0 - 0.2 /CUMM) 0 0 Platelet Estimate (ADEQUATE) ADEQUATE ADEQUATE Polychromasia 1+ 1+ Anisocytosis 1+ Ovalocytes FEW Stomatocytes FEW Other Body Source Fld Total RBCs Counted (%) 100 08/05 1440 Chemistry Sodium (137 - 145 mmol/L) 139 Potassium (3.5 - 5.1 mmol/L) 3.5 Chloride (98 - 107 mmol/L) 105 Carbon Dioxide (22 - 30 mmol/L) 27 Anion Gap (5 - 16) 7 BUN (9 - 20 mg/dL) 9 Creatinine (0.7 - 1.2 mg/dL) 1.1 Estimated GFR (>60 ml/min) > 60 BUN/Creatinine Ratio (7 - 25 %) 8.2 [id number] Pept (<125 pg/mL) 22659 H Impression/Plan Impression/Plan Impression/Plan: Eomi Chest clear cvs aure, afib abd soft No edema Fracture left Ue Pupils small Delirium better sig all ext weakness This is a 67-year-old gentleman with history of hypertension, hyperlipidemia, CABG, previous bovine aortic valve replacement, previous history of Hodgkin's lymphoma in the late 90s with previous chemoradiation therapy leading to significant neuropathy, significant medical marijuana usage, alcohol use on and off, multiple surgeries and chronic pain, previous seizure disorder started in 2014 and since then followed by [facility] seizure clinic (compliant) here with encephelopathy multifactorial (not having any seizures) * REsolved Chronic resp failure due to inability to maintain his airway due to severe encephelopathy. S/p rx for polymicrobial pna now s/p extubation * IMproving encephelopathy -with delirium with prior seizure now on appropriate medication. He does have chronic issues as noted from before including a chronic arachnoid cyst, polysubstance use, alcohol use, sig cocaine use and small vessel ischemia etc. 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) s/p surg with stent on 03/13 * Stable Thrombocytopenia - HIT neg now back on heparin * Significant alcohol use by history with probable dts, Marijuana, sig cocaine in the urine upon admission * Sig Heart disease with previous CABG and aortic valve replacement with bioprosthetic valve with previous arrythmia, now in pafib * Previous history of nephrolithiasis, now with john (improving) * Nasal fracture and displaced transcondylar fracture of distal left humerus, conservative rx per ortho * 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
--- NOTE | 2018-03-20 15:10 | PN- Neurology ---
Subjective Subjective: Asked to reconsult on seizure medications. Per nursing staff, no seizures have occurred He remains quite encephalopathic and confused, however. Still agitated intermittently Remains on Keppra 500 mg twice daily as well as Depakote 1000 mg twice daily. The previously recommended gabapentin was never instituted. Review of Systems: Unobtainable, patient responses are irrelevant to questions asked Objective Vital Signs and I&Os Vital Signs Date Time Temp Pulse Resp B/P B/P Pulse O2 O2 Flow FiO2 Mean Ox Delivery Rate 03/20 906 97 140/0 03/20 800 95 Room Air 03/20 08 97.2 92 27 140/0 95 Room Air 03/20 0000 Room Air 03/20 0000 97.7 98 22 138/00 95 Room Air 03/19 2154 100 124/00 03/19 1600 97.0 97 20 145/82 94 Room Air Intake & Output 03/20 1600 03/20 0803/20 0000 03/19 1600 03/19 0803/19 0000 Intake Total 450 180 360 200 200 80 Output Total 349 494 5467 700 2100 3000 Balance 150 -520 -1240 -500 -1900 -2920 Intake, IV 150 120 100 200 0 Intake, Oral 300 60 360 100 0 80 Number 0 0 0 Bowel Movements Output, Urine 076 784 7833 700 2100 3000 Physical Exam: Somnolent, aroused to voice, try to sit up. Speaking although not responding to questions asked. He does follow some simple commands like squeeze with the right hand. Pupils midsize and reactive, eye movements appear conjugate and no nystagmus noted. Right hand horse exerciser strong, left arm bandaged. Moves both legs on command. Current Medications: Current Medications Sig/Louise Start time Last Medication Dose Route Stop Time Status Admin Acetaminophen 0 .STK-MED ONE 03/20 900 DC IV Acetaminophen 1,000 MG Q6P PRN 03/11 1415 AC 03/20 N/A 1 UNIT IV 0900 Atorvastatin Calcium 40 MG 1700 03/01 1700 AC 03/19 PO 1700 Clopidogrel Bisulfate 75 MG DAILY 03/14 09 AC 03/20 PO 0900 Divalproex Sodium 1,000 MG BID 03/20 1039 AC 03/20 PO 1213 Divalproex Sodium 1,000 MG BID 03/20 1035 DC PO Docusate Sodium 100 MG DAILY NEEDED 03/02 930 AC 03/02 PO 1057 Enoxaparin Sodium 100 MG BID 03/16 2100 AC 03/20 SC 0901 Levetiracetam 500 MG BID 03/20 1009 AC 03/20 PO 1213 Magnesium Oxide 400 MG ONE ONE 03/20 715 DC 03/20 PO 03/20 0716 0900 Magnesium Sulfate 1 GM ONCE ONE 03/20 1130 AC 03/20 Dextrose/Water 100 ML IV 03/20 1529 1337 Metoprolol Tartrate 37.5 MG BID 03/20 2100 DC PO Metoprolol Tartrate 50 MG BID 03/20 2100 AC PO Metoprolol Tartrate 25 MG BID 03/17 2100 DC 03/20 PO 0906 Morphine Sulfate 2 MG Q2P PRN 03/14 1415 AC 03/18 IV 2123 Olanzapine 2.5 MG ONCE ONE 03/19 1545 DC 03/19 IM 03/19 1546 1552 Polyethylene Glycol 17 GM DAILY PRN 03/02 0930 AC 03/03 PO 0839 Potassium Chloride 40 MEQ ONCE ONE 03/20 715 DC 03/20 PO 03/20 07 0901 Senna 187 MG AT BEDTIME PRN 03/02 0930 AC 03/02 PO 1057 Valproate Sodium 1,000 MG Q12H 03/08 1200 DC 03/20 Sodium Chloride 100 ML IV 0008 Vitamin A/Vitamin D 1 YOKO BID 03/12 1515 AC 03/20 TOP 0901 Results Last 24 Hours of Lab Results: Laboratory Tests 03/20 0355 Chemistry Sodium (137 - 145 mmol/L) 142 Potassium (3.5 - 5.1 mmol/L) 3.8 Chloride (98 - 107 mmol/L) 103 Carbon Dioxide (22 - 30 mmol/L) 29 Anion Gap (5 - 16) 10 BUN (9 - 20 mg/dL) 11 Creatinine (0.7 - 1.2 mg/dL) 1.3 H Estimated GFR (>60 ml/min) 55 L Glucose (65 - 99 mg/dL) 86 Calcium (8.4 - 10.2 mg/dL) 8.4 Phosphorus (2.5 - 4.5 mg/dL) 3.7 Magnesium (1.6 - 2.3 mg/dL) 1.7 Total Bilirubin (0.2 - 1.3 mg/dL) 0.7 AST (17 - 59 U/L) 28 ALT (21 - 72 U/L) 26 Albumin (3.5 - 5.0 g/dL) 2.9 L Hematology CBC w Diff MAN DIFF ORDERED WBC (4.8 - 10.8 /CUMM) 12.2 H RBC (4.70 - 6.10 /CUMM) 3.71 L Hgb (14.0 - 18.0 G/DL) 11.5 L Hct (42 - 52 %) 33.9 L MCV (80.0 - 94.0 FL) 91.5 MCH (27.0 - 31.0 PG) 31.0 MCHC (33.0 - 37.0 G/DL) 33.9 RDW (11.5 - 14.5 %) 15.8 H Plt Count (130 - 400 /CUMM) ND MPV (7.4 - 10.4 FL) 10.4 Gran % (42.2 - 75.2 %) 53.9 Lymphocytes % (20.5 - 51.1 %) 18.6 L Monocytes % (1.7 - 9.3 %) 27.1 H Eosinophils % (0 - 5 %) 0.1 Basophils % (0.0 - 2.0 %) 0.3 Absolute Granulocytes (1.4 - 6.5 /CUMM) 6.6 H Segmented Neutrophils (42.2 - 75.2 %) 58 Band Neutrophils (0.0 - 5.0 %) 1 Absolute Lymphocytes (1.2 - 3.4 /CUMM) 2.3 Lymphocytes (20.5 - 51.1 %) 19 L Monocytes (1.7 - 9.3 %) 22 H Absolute Monocytes (0.10 - 0.60 /CUMM) 3.3 H Absolute Eosinophils (0.0 - 0.7 /CUMM) 0 Absolute Basophils (0.0 - 0.2 /CUMM) 0 Platelet Estimate (ADEQUATE) ADEQUATE Polychromasia 1+ Ovalocytes FEW Stomatocytes FEW Other Body Source Fld Total RBCs Counted (%) 100 Recent Imaging Studies: 2 routine EEGs have shown no seizure activity Head CT 03/14/18: The brain parenchyma has normal attenuation. No cerebral edema or intracranial hemorrhage. The flores-white matter differentiation is well preserved. No acute major vascular territory infarction. Again noted is the area of cerebrospinal fluid attenuation within the left middle cranial fossa measuring up to approximately 5 cm transverse and 7 cm AP, consistent with arachnoid cyst, unchanged compared to 02/20/2015. There is no shifting of midline structures. The ventricles have normal caliber and configuration; no hydrocephalus. Mild atherosclerotic calcification of cavernous carotid arteries. Assessment/Plan Assessment: Seizures remain controlled Agitation persists, may be aggravated by Keppra Plan: Reduce Keppra now to 250 twice daily for 4 doses then discontinue Continue Depakote 1000 mg twice daily Repeat Depakote level If agitation persists would then begin gabapentin 300 mg 3 times daily with possibility of further dose increase depending on response
[2018-03-20 16:11] VITALS: BP 128/0
[2018-03-21 06:33] VITALS: BP 124/00
[2018-03-21 08:17] LABS: ABSOLUTE BASOPHIL COUNT 0 /CUMM (0.0-0.2); ABSOLUTE EOSINOPHIL COUNT 0 /CUMM (0.0-0.7); ABSOLUTE GRANULOCYTE CT 9.7 /CUMM (1.4-6.5); ABSOLUTE LYMPH COUNT 1.9 /CUMM (1.2-3.4); BASOPHIL % 0.2 % (0.0-2.0); EOSINOPHIL % 0 % (0-5); GRANULOCYTE % 66.4 % (42.2-75.2); HEMATOCRIT 34.2 % (42-52); MEAN CORPUSCULAR HGB 31.4 PG (27.0-31.0); MEAN CORPUSCULAR HGB CONC 34.1 G/DL (33.0-37.0); MEAN CORPUSCULAR VOLUME 91.9 FL (80.0-94.0); MEAN PLATELET VOLUME 10.2 FL (7.4-10.4); RED BLOOD CELL CT 3.72 /CUMM (4.70-6.10); WHITE BLOOD CELL COUNT 14.6 /CUMM (4.8-10.8)
--- NOTE | 2018-03-21 10:10 | PN- Cardiology ---
Subjective Subjective: Patient seen at bedside. Patient denies chest pain, palpitations, dyspnea. Patient states that he wants to go home. Objective Vital Signs and I&Os Vital Signs Date Time Temp Pulse Resp B/P B/P Pulse O2 O2 Flow FiO2 Mean Ox Delivery Rate 03/21 813 89 124/100 03/21 0633 97.4 89 18 124/00 92 Room Air 03/21 0000 95 Room Air 03/20 2011 94 138/00 03/20 1611 97.1 91 15 128/0 93 Room Air 03/20 1600 95 Room Air Intake & Output 03/21 0000 03/20 1600 03/20 0000 Intake Total 230 450 180 360 Output Total 206 637 9695 Balance 230 150 -520 -1240 Intake, IV 130 150 120 Intake, Oral 100 300 60 360 Number 0 Bowel Movements Output, Urine 561 855 7303 Patient 89.811 kg 89.811 kg Weight Weight Bed scale Measurement Method Physical Exam: General: lying in bed, appears irritated, awake, arousable, responding to questions appropriately HEENT: NCAT, NO JVD Heart: s1s2, irregular rhythm, not tachycardic, +2/6 pansystolic murmur across precordium best heard at base nonradiating Lungs: CTA b/l Abd: soft, nt Ext: no peripheral edema; LUE wrapping in place Current Medications: Current Medications Sig/Louise Start time Last Medication Dose Route Stop Time Status Admin Acetaminophen 0 .STK-MED ONE 03/20 1742 DC IV Acetaminophen 1,000 MG Q6P PRN 03/11 1415 AC 03/20 N/A 1 UNIT IV 1742 Atorvastatin Calcium 40 MG 1700 03/01 1700 AC 03/20 PO 1650 Clopidogrel Bisulfate 75 MG DAILY 03/14 09 AC 03/21 PO 0813 Divalproex Sodium 1,000 MG BID 03/20 1039 AC 03/21 PO 0813 Divalproex Sodium 1,000 MG BID 03/20 1035 DC PO Docusate Sodium 100 MG DAILY NEEDED 03/02 930 AC 03/02 PO 1057 Enoxaparin Sodium 100 MG BID 03/16 2100 AC 03/21 SC 0830 Gabapentin 300 MG Q8P PRN 03/20 1715 AC 03/20 PO 1817 Levetiracetam 250 MG BID 03/20 2100 AC 03/21 PO 03/22 0901 0814 Levetiracetam 500 MG BID 03/20 1009 DC 03/20 PO 1213 Magnesium Sulfate 1 GM ONCE ONE 03/20 1130 DC 03/20 Dextrose/Water 100 ML IV 03/20 1529 1337 Metoprolol Tartrate 37.5 MG BID 03/20 2100 DC PO Metoprolol Tartrate 50 MG BID 03/20 2100 AC 03/21 PO 0813 Metoprolol Tartrate 25 MG BID 03/17 2100 DC 03/20 PO 0906 Morphine Sulfate 2 MG Q2P PRN 03/14 1415 AC 03/18 IV 2123 Polyethylene Glycol 17 GM DAILY PRN 03/02 0930 AC 03/03 PO 0839 Senna 187 MG AT BEDTIME PRN 03/02 0930 AC 03/02 PO 1057 Valproate Sodium 1,000 MG Q12H 03/08 1200 DC 03/20 Sodium Chloride 100 ML IV 0008 Vitamin A/Vitamin D 1 YOKO BID 03/12 1515 AC 03/21 TOP 0814 Results Last 48 Hrs of Labs/Mics: Laboratory Tests 03/21/18 0700: Anion Gap 7, Estimated GFR 50 L, Glucose 79, Calcium 8.1 L, Phosphorus 3.5, Magnesium 2.0, Total Bilirubin 0.7, AST 27, ALT 23, Albumin 2.8 L, CBC w Diff Pending, WBC Pending, RBC Pending, Hgb Pending, Hct Pending, MCV Pending, MCH Pending, MCHC Pending, RDW Pending, Plt Count Pending, MPV Pending, Gran % Pending, Lymphocytes % Pending, Monocytes % Pending, Eosinophils % Pending, Basophils % Pending, Absolute Granulocytes Pending, Absolute Lymphocytes Pending , Absolute Monocytes Pending, Absolute Eosinophils Pending, Absolute Basophils Pending 03/20/18 1735: Valproic Acid 84.1 03/20/18 0355: Anion Gap 10, Estimated GFR 55 L, Glucose 86, Calcium 8.4, Phosphorus 3.7, Magnesium 1.7, Total Bilirubin 0.7, AST 28, ALT 26, Albumin 2.9 L, CBC w Diff MAN DIFF ORDERED, RBC 3.71 L, MCV 91.5, MCH 31.0, MCHC 33.9, RDW 15.8 H, Plt Count ND, MPV 10.4, Gran % 53.9, Lymphocytes % 18.6 L, Monocytes % 27.1 H, Eosinophils % 0.1, Basophils % 0.3, Absolute Granulocytes 6.6 H, Segmented Neutrophils 58, Band Neutrophils 1, Absolute Lymphocytes 2.3, Lymphocytes 19 L, Monocytes 22 H, Absolute Monocytes 3.3 H, Absolute Eosinophils 0, Absolute Basophils 0, Platelet Estimate ADEQUATE, Polychromasia 1+, Ovalocytes FEW, Stomatocytes FEW, Fld Total RBCs Counted 100 Recent Imaging Studies: Telemetry personally reviewed: Atrial fibrillation, no RVR Assessment/Plan Assessment/Plan 1. Seizure disorder/ecephalopathy 2. Atrial fibrillation, was not on chronic AC due to seizure disorder with refractory polysubstance abuse, currently on lovenox 100mg sq bid 3. Coronary artery disease status post CABG 4. Bioprosthetic aortic valve 5. Nonsustained wide complex tachycardia, likely NSVT 6. Peripheral vascular disease 7. 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 polysubstance abuse, including cocaine 9. Hypertension 10. Hyperlipidemia 11. ?thrombocytopenia; improved 12. PNA Plan: Patient continues to be in atrial fibrillation, but no RVR. Normotensive today. Metoprolol can be increased to 50 mg p.o. twice daily. Can continue with full dose articulation with subq Lovenox; transition to p.o. Eliquis prior to discharge. Continue with Plavix, statin. Continue telemetry? Yes Continue telemetry? Yes
--- NOTE | 2018-03-21 12:06 | PN- Housestaff ---
Subjective Follow-up For: seizures Subjective: Pt was seen lying in bed. Was cooperative with physical exam with advertising internship but got angry when asked history. Hx attained mostly from nursing. No events per tele. When approached by team he was verbally abusive. Review of Systems Constitutional: Reports: see HPI, chills. Respiratory: Reports: see HPI. Objective Last 24 Hrs of Vital Signs/I&O Vital Signs Date Time Temp Pulse Resp B/P B/P Pulse O2 O2 Flow FiO2 Mean Ox Delivery Rate 03/22 0655 98.2 75 22 136/80 94 Room Air 03/21 2342 98.5 79 20 112/00 96 Room Air 03/21 2028 112/0 03/21 1420 97.7 86 20 134/58 91 Intake & Output 03/22 1600 03/22 0803/22 0000 Intake Total 1000 1000 Output Total Balance 1000 1000 Intake, IV 800 800 Intake, Oral 200 200 Number 0 Bowel Movements Patient 206 lb Weight Weight Bed scale Measurement Method Physical Exam General Appearance: Alert, Mild Distress HEENT: Atraumatic, EOMI Cardiovascular: Normal S1, Normal S2 Lungs: Clear to Auscultation Abdomen: Soft, No Tenderness Current Medications: Current Medications Sig/Louise Start time Last Medication Dose Route Stop Time Status Admin Acetaminophen 1,000 MG Q6P PRN 03/11 1415 AC 03/20 N/A 1 UNIT IV 1742 Apixaban 5 MG BID 03/22 09 AC PO Atorvastatin Calcium 40 MG 1700 03/01 1700 AC 03/21 PO 1846 Clopidogrel Bisulfate 75 MG DAILY 03/14 0900 AC 03/21 PO 0813 Divalproex Sodium 1,000 MG BID 03/20 1039 AC 03/21 PO 202 Docusate Sodium 100 MG DAILY NEEDED 03/02 930 AC 03/02 PO 1057 Enoxaparin Sodium 80 MG BID 03/21 2100 DC 03/21 SC 03/21 2300 202 Enoxaparin Sodium 100 MG BID 03/16 2100 DC 03/21 SC 08 Gabapentin 300 MG Q8P PRN 03/20 1715 AC 03/20 PO 1817 Levetiracetam 250 MG BID 03/20 2100 AC 03/21 PO 03/22 0901 202 Metoprolol Tartrate 50 MG BID 03/20 2100 AC 03/21 PO 202 Morphine Sulfate 2 MG Q2P PRN 03/14 1415 DC 03/18 IV 2123 Polyethylene Glycol 17 GM DAILY PRN 03/02 0930 AC 03/03 PO 08 Senna 187 MG AT BEDTIME PRN 03/02 0930 AC 03/21 PO 2129 Senna/Docusate Sodium 0 .STK-MED ONE 03/21 2047 DC PO Sodium Chloride 1,000 ML Q10H 03/21 1115 AC 03/22 IV 0608 Vitamin A/Vitamin D 1 YOKO BID 03/12 1515 03/21 TOP 2019 Assessment/Plan Assessment: 67 y/o M with PMH of chronic seizure disorder on valproate, CAD s/p CABG and bovine aortic valve replacement in 2013, Hodgkins lymphoma, HTN and HLD that was brought to the ED after he was found to be unresponsive. Problem List: 1. Encephalopathy - possibly 2/2 to seizure and/or alcohol and abuse 2. Paroxysmal Afib with NSVT 3. Ischemic right foot (superficial femoral artery occlusion) 4. PEPPER 5. Humeral fx and nasal fx (after falling during seizure prior to admission) 6. Leukocystosis Plan: - Pt currently maintaining saturation on room air - Start Eliquis (too difficult for subQ heparin injections given his beahvioural isssues) - If QTc above 450, instead of Haldol can give Ativan prn per psychiatiry ( please see their note) - Lap Polisher trending up (may need to consider IV hydration) - Trend white count Problem List: 1. Seizure Pain Ratin Pain Location: na Pain Goal: Remain pain free Pain Plan: per pathway Tomorrow's Labs & Rationales: Mg, EKG, CBC, BEP
--- NOTE | 2018-03-21 13:00 | PN- Att Addend ---
Attending Addendum Attending Brief Note Patient seen and examined. Records reviewed. Case discussed with patient's bark peeler. Is currently alert but oriented only to person. He is confused and mildly agitated asking to go home. Currently restrained with a [place]. He was not interested in answering questions asked. Vital Signs Date Time Temp Pulse Resp B/P B/P Pulse O2 O2 Flow FiO2 Mean Ox Delivery Rate 03/21 0813 89 124/100 03/21 0633 97.4 89 18 124/00 92 Room Air 03/21 0000 95 Room Air 03/20 2011 94 138/00 03/20 1611 97.1 91 15 128/0 93 Room Air 03/20 1600 95 Room Air General appearance: Well-developed and not in any acute distress. HEENT: Anicteric, no pallor, pupils equal and reactive. Neck: Supple with no jugular venous distention. Heart: S1-S2 irregular Lungs: Adequate and symmetric air entry bilaterally with no added sounds. Abdomen: Nondistended with normal bowel sounds. Soft, nontender with no palpable masses. Extremities: No pedal edema. No cyanosis. Skin: Intact Laboratory Tests 03/21/18 0700: Anion Gap 7, Estimated GFR 50 L, Glucose 79, Calcium 8.1 L, Phosphorus 3.5, Magnesium 2.0, Total Bilirubin 0.7, AST 27, ALT 23, Albumin 2.8 L, CBC w Diff MAN DIFF ORDERED, RBC 3.72 L, MCV 91.9, MCH 31.4 H, MCHC 34.1, RDW 16.0 H, MPV 10.2, Gran % 66.4, Lymphocytes % 13.1 L, Monocytes % 20.3 H, Eosinophils % 0, Basophils % 0.2, Absolute Granulocytes 9.7 H, Segmented Neutrophils 57, Band Neutrophils 9 H, Absolute Lymphocytes 1.9, Lymphocytes 14 L, Monocytes 20 H, Absolute Monocytes 3.0 H, Absolute Eosinophils 0, Absolute Basophils 0, Platelet Estimate ADEQUATE, Polychromasia 1+, Anisocytosis 1+ 03/20/18 1735: Valproic Acid 84.1 Problems: 1. Respiratory failure requiring mechanical ventilation. Resolved. Extubated and completed treatment for polymicrobial pneumonia. 2. Encephalopathy; presumed to be toxic metabolic. Secondary to his seizure and polysubstance abuse including alcohol and cocaine. reports at baseline patient is violent on occasion. He apparently was using cocaine at his job prior to experiencing seizures for which she was hospitalized. 3. Paroxysmal atrial fibrillation with episode of nonsustained ventricular tachycardia. 4. Ischemic right foot due to superficial femoral artery occlusion status post stent placement during this hospitalization. Patient also has distal tibial disease for which treatment has been deferred by the vascular surgery service. 5. Acute kidney injury; improving 6. Distal left humerus fracture and nasal fracture following seizure prior to hospitalization 7. Coronary artery disease status post CABG. On antiplatelet therapy with Plavix. 8. Status post bioprosthetic aortic valve replacement. 9. Thrombocytopenia; resolved 10. Persistent leukocytosis Plan: -Patient is currently maintaining sat on room air. Completed antibiotic course for pneumonia. -Continue metoprolol 50 mg orally twice daily. -Start Eliquis to reduce need for repeated subacute injections given his behavioral state. -Continue Depakote. If his QTC is prolonged precluding use of antipsychotics such as Haldol, may utilize Ativan as needed as recommended by the psychiatry service. -Recommend one-to-one sitter. -Creatinine level is trending up again. Encourage oral intake. Repeat labs in a.m. If creatinine still trending upwards will consider IV hydration. -Patient remains afebrile with no clear evidence of an infectious process. We will continue to monitor white count.
--- NOTE | 2018-03-21 13:21 | PN- Pulmonary ---
Subjective HPI/Critical Care Issues: Improving NOw in tele Delirium better but persists at times Objective Current Medications: Current Medications Sig/Louise Start time Last Medication Dose Route Stop Time Status Admin Acetaminophen 0 .STK-MED ONE 03/20 1742 DC IV Acetaminophen 1,000 MG Q6P PRN 03/11 1415 AC 03/20 N/A 1 UNIT IV 1742 Atorvastatin Calcium 40 MG 1700 03/01 1700 AC 03/20 PO 1650 Clopidogrel Bisulfate 75 MG DAILY 03/14 0900 AC 03/21 PO 0813 Divalproex Sodium 1,000 MG BID 03/20 1039 AC 03/21 PO 0813 Docusate Sodium 100 MG DAILY NEEDED 03/02 0930 AC 03/02 PO 1057 Enoxaparin Sodium 80 MG BID 03/21 2100 AC SC Enoxaparin Sodium 100 MG BID 03/16 2100 DC 03/21 SC 0830 Gabapentin 300 MG Q8P PRN 03/20 1715 AC 03/20 PO 1817 Levetiracetam 250 MG BID 03/20 2100 AC 03/21 PO 03/22 0901 0814 Levetiracetam 500 MG BID 03/20 1009 DC 03/20 PO 1213 Magnesium Sulfate 1 GM ONCE ONE 03/20 1130 DC 03/20 Dextrose/Water 100 ML IV 03/20 1529 1337 Metoprolol Tartrate 50 MG BID 03/20 2100 AC 03/21 PO 0813 Morphine Sulfate 2 MG Q2P PRN 03/14 1415 AC 03/18 IV 2123 Polyethylene Glycol 17 GM DAILY PRN 03/02 0930 AC 03/03 PO 0839 Senna 187 MG AT BEDTIME PRN 03/02 0930 AC 03/02 PO 1057 Sodium Chloride 1,000 ML Q10H 03/21 1115 AC 03/21 IV 1211 Vitamin A/Vitamin D 1 YOKO BID 03/12 1515 AC 03/21 TOP 0814 Vital Signs & I&O Last 24 Hrs of Vitals and I&O: Vital Signs Date Time Temp Pulse Resp B/P B/P Pulse O2 O2 Flow FiO2 Mean Ox Delivery Rate 03/21 08 89 124/100 03/21 0633 97.4 89 18 124/00 92 Room Air 03/21 0000 95 Room Air 03/20 2011 94 138/00 03/20 1611 97.1 91 15 128/0 93 Room Air 03/20 1600 95 Room Air Intake & Output 03/21 1600 03/21 0800 03/21 0000 Intake Total 230 Output Total Balance 230 Intake, IV 130 Intake, Oral 100 Patient 198 lb 198 lb Weight Weight Bed scale Measurement Method Impression/Plan Impression/Plan Impression/Plan: Eomi Chest clear cvs aure, afib abd soft No edema Fracture left Ue Pupils small Delirium better sig all ext weakness This is a 67-year-old gentleman with history of hypertension, hyperlipidemia, CABG, previous bovine aortic valve replacement, previous history of Hodgkin's lymphoma in the late with previous chemoradiation therapy leading to significant neuropathy, significant medical marijuana usage, alcohol use on and off, multiple surgeries and chronic pain, previous seizure disorder started in 2014 and since then followed by [facility] seizure clinic (compliant) here with encephelopathy multifactorial (not having any seizures) * REsolved Chronic resp failure due to inability to maintain his airway due to severe encephelopathy. S/p rx for polymicrobial pna now s/p extubation * IMproving encephelopathy -with delirium with prior seizure now on appropriate medications. He does have chronic issues as noted from before including a chronic arachnoid cyst, polysubstance use, alcohol use, sig cocaine use and small vessel ischemia etc. * Prior pneumonia s/p intubation and extubation now has serratia but prob colonization as cxr nil acute * Delirium and encephelopathy (toxic and metabolic and multifactorial) * S/p Recurrent NSVT, paroxysmal atrial fibrillation was on amiodarone now has been stopped, on systemic anticoag * Ischemic foot rt side due to sfa occlusion (appears chronic by CT) s/p surg with stent on 03/13, now on plavix and lovenox * Stable Thrombocytopenia - HIT neg now back on heparin * Significant alcohol use by history with probable dts, Marijuana, sig cocaine in the urine upon admission * Sig Heart disease with previous CABG and aortic valve replacement with bioprosthetic valve with previous arrythmia, now in pafib * Previous history of nephrolithiasis, now with john slightly worse creat 1.4 * Nasal fracture and displaced transcondylar fracture of distal left humerus, conservative rx per ortho * 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 Crawford
[2018-03-21 14:20] VITALS: BP 134/58
[2018-03-21 23:42] VITALS: BP 112/00
[2018-03-22 06:55] VITALS: BP 136/80
[2018-03-22 08:18] LABS: ABSOLUTE BASOPHIL COUNT 0 /CUMM (0.0-0.2); BASOPHIL % 0.2 % (0.0-2.0); MEAN CORPUSCULAR HGB 31.6 PG (27.0-31.0); MEAN CORPUSCULAR HGB CONC 34.2 G/DL (33.0-37.0)
[2018-03-22 08:54] LABS: ABSOLUTE EOSINOPHIL COUNT 0.1 /CUMM (0.0-0.7); ABSOLUTE GRANULOCYTE CT 6.1 /CUMM (1.4-6.5); ABSOLUTE LYMPH COUNT 2.5 /CUMM (1.2-3.4); EOSINOPHIL % 0.6 % (0-5); HEMATOCRIT 30.8 % (42-52); MEAN CORPUSCULAR VOLUME 92.4 FL (80.0-94.0); RBC DISTRIBUTION WIDTH 16.3 % (11.5-14.5); RED BLOOD CELL CT 3.34 /CUMM (4.70-6.10); WHITE BLOOD CELL COUNT 11.7 /CUMM (4.8-10.8)
--- NOTE | 2018-03-22 10:06 | PN- Housestaff ---
FrangeovaniPankaj 03/22/18 1006: Subjective Follow-up For: Seizures Subjective: Pt was seen lying in bed. No events on telemonitor. Per nursing he refused breakfast. He remains disoriented and confused and his thoughts are tangential. He remains verbally abusive and would not respond to any further questions during my exam. Review of Systems Constitutional: Reports: see HPI. Objective Last 24 Hrs of Vital Signs/I&O Vital Signs Date Time Temp Pulse Resp B/P B/P Pulse O2 O2 Flow FiO2 Mean Ox Delivery Rate 03/22 2217 98.3 89 26 116/72 96 03/22 2116 91 116/62 03/22 1534 98.7 72 22 134/72 93 Room Air 03/22 1233 Room Air 2.0L 03/22 0952 136/80 03/22 0655 98.2 75 22 136/80 94 Room Air Intake & Output 03/23 0800 03/23 0000 03/22 1600 Intake Total 1000 920 Output Total 225 Balance 775 920 Intake, IV 800 800 Intake, Oral 200 120 Number 3 Bowel Movements Output, Urine 225 Patient 206 lb Weight Physical Exam General Appearance: Alert, Confused, Disoriented, Abusive Skin Temp/Moisture Exam: Warm/Dry HEENT: Atraumatic, EOMI Neck: Supple Cardiovascular: Normal S1, Normal S2, Irregular Rhythm Lungs: Clear to Auscultation Abdomen: Soft, No Tenderness Extremities: LUE dressing Current Medications: Current Medications Sig/Louise Start time Last Medication Dose Route Stop Time Status Admin Acetaminophen 0 .STK-MED ONE 03/22 2106 DC IV Acetaminophen 1,000 MG Q6P PRN 03/11 1415 AC 03/22 N/A 1 UNIT IV 2107 Apixaban 5 MG BID 03/22 900 AC 03/22 PO 2110 Atorvastatin Calcium 40 MG 1700 03/01 1700 AC 03/22 PO 1750 Bisacodyl 10 MG ONCE ONE 03/22 1645 DC 03/22 SD 03/22 1646 1804 Clopidogrel Bisulfate 75 MG DAILY 03/14 900 AC 03/22 PO 0952 Dextrose/Sodium 1,000 ML Q13H 03/22 1030 AC 03/22 Chloride IV 211 Divalproex Sodium 1,000 MG BID 03/20 1039 AC 03/22 PO 211 Docusate Sodium 100 MG DAILY NEEDED 03/02 930 AC 03/02 PO 1057 Gabapentin 300 MG Q8P PRN 03/20 1715 AC 03/20 PO 1817 Levetiracetam 250 MG BID 03/20 2100 DC 03/22 PO 03/22 0901 0951 Metoprolol Tartrate 50 MG BID 03/20 2100 AC 03/22 PO 2116 Polyethylene Glycol 17 GM DAILY PRN 03/02 0930 AC 03/03 PO 0839 Senna 187 MG AT BEDTIME 03/22 2100 AC PO Senna 187 MG AT BEDTIME PRN 03/02 930 DC 03/21 PO 03/22 Sodium Chloride 1,000 ML Q10H 03/21 1115 AC 03/22 IV 0608 Vitamin A/Vitamin D 1 YOKO BID 03/12 1515 03/22 [facility] 211 Last 24 Hrs of Lab/Kody Results Last 24 Hrs of Labs/Mics: Laboratory Tests 03/22/18 0546: Anion Gap 5, Estimated GFR > 60, BUN/Creatinine Ratio 13.3, Magnesium 1.9, CBC w Diff MAN DIFF ORDERED, RBC 3.34 L, MCV 92.4, MCH 31.6 H, MCHC 34.2, RDW 16.3 H, Gran % 52.0, Lymphocytes % 21.7, Monocytes % 25.5 H, Eosinophils % 0.6, Basophils % 0.2, Absolute Granulocytes 6.1, Absolute Lymphocytes 2.5, Absolute Monocytes 3.0 H, Absolute Eosinophils 0.1, Absolute Basophils 0, Platelet Estimate ADEQUATE, Normocytic RBCs VERIFIED, Normochromic RBCs VERIFIED, Polychromasia Assessment/Plan Assessment: 67 y/o M with PMH of chronic seizure disorder on valproate, CAD s/p CABG and bovine aortic valve replacement in 2013, Hodgkins lymphoma, HTN and HLD that was brought to the ED after he was found to be unresponsive. Problem List: # Encephalopathy - possibly 2/2 to seizure and/or alcohol and abuse # Paroxysmal Afib with NSVT # Ischemic right foot (superficial femoral artery occlusion) # PEPPER # Humeral fx and nasal fx (after falling during seizure prior to admission) # Leukocystosis - Pt currently maintaining saturation on room air - Cotinue Depakote - If QTc above 450, instead of Haldol can give Ativan prn per psychiatiry ( please see their note) - Today QTc 490 - Start Eliquis (too difficult for subQ heparin injections given his beahvioural isssues) - Continue Eliquis and Metoprolol per cardiology - Continue Plavix to prevent further peripheral artery disease - 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 Seizure 2. Atrial fibrillation Pain Ratin Pain Location: NA Pain Goal: Remain pain free Pain Plan: Per pathway Tomorrow's Labs & Rationales: BEP, CBC Yvette ANDERSON,Lily 03/22/18 1111: Attending MD Review Statement Attending Statement Attending MD Statement: examined this patient, discuss w/resident/PA/SAXOPHONE ASSEMBLER, agreed w/resident/PA/SAXOPHONE ASSEMBLER, reviewed EMR data (avail), discussed with nursing, discussed with case mgmt, amended to note Attending Assessment/Plan: Patient seen and examined. Resting comfortably. Remains very confused and disoriented. He is fortunately more combative but still requires [place] restraints. Nursing staff reports he refused to eat this morning we did encourage patient to try to eat. He remains without any focal neurologic deficit. Moving all extremities spontaneously. No facial asymmetry. Speech is intact although occasionally does appeared slurred. Head CT during this hospitalization showed no acute pathology. Recommendations: -Leukocytosis is improving. No clinical evidence of infection at present. Continue to monitor off antibiotic therapy. -Continue metoprolol for rate control. He has been switched to Eliquis for anticoagulation therapy. -Continue Depakote. May use antipsychotics such as Haldol if needed for profound agitation. May use Ativan if QTc remains prolonged. -Will likely require prolonged hospitalization until his mental status improved to the point where he can adequately participate in physical therapy and discharge planning process.
--- NOTE | 2018-03-22 10:40 | PN- Cardiology ---
Subjective Subjective: Patient seen at bedside. Patient remains disoriented, drifting in and out of sleep, however he continues to deny any chest pain, palpitations, dyspnea, orthopnea. Objective Vital Signs and I&Os Vital Signs Date Time Temp Pulse Resp B/P B/P Pulse O2 O2 Flow FiO2 Mean Ox Delivery Rate 03/22 0952 136/80 03/22 0655 98.2 75 22 136/80 94 Room Air 03/21 2342 98.5 79 20 112/00 96 Room Air 03/21 2028 112/0 03/21 1420 97.7 86 20 134/58 91 Intake & Output 03/22 1600 03/22 0000 03/21 1600 03/21 0000 Intake Total 1000 1000 380 230 Output Total Balance 1000 1000 380 230 Intake, IV 800 800 200 130 Intake, Oral 200 200 180 100 Number 0 Bowel Movements Patient 93.44 kg 89.811 kg 89.811 kg Weight Weight Bed scale Bed scale Measurement Method Physical Exam: General: lying in bed, appears irritated, awake, arousable, responding to questions appropriately HEENT: NCAT, NO JVD Heart: s1s2, irregular rhythm, not tachycardic, +2/6 pansystolic murmur across precordium best heard at base nonradiating Lungs: CTA b/l Abd: soft, nt Ext: Bilateral lower extremity Venodyne's in place, no peripheral edema; LUE wrapping in place Current Medications: Current Medications Sig/Louise Start time Last Medication Dose Route Stop Time Status Admin Acetaminophen 1,000 MG Q6P PRN 03/11 1415 AC 03/20 N/A 1 UNIT IV 1742 Apixaban 5 MG BID 03/22 900 AC 03/22 PO 0952 Atorvastatin Calcium 40 MG 1700 03/01 1700 AC 03/21 PO 1846 Clopidogrel Bisulfate 75 MG DAILY 03/14 09 AC 03/22 PO 0952 Dextrose/Sodium 1,000 ML Q13H 03/22 1030 AC Chloride IV Divalproex Sodium 1,000 MG BID 03/20 1039 AC 03/22 PO 0951 Docusate Sodium 100 MG DAILY NEEDED 03/02 930 AC 03/02 PO 1057 Enoxaparin Sodium 80 MG BID 03/21 2100 DC 03/21 SC 03/21 Enoxaparin Sodium 100 MG BID 03/16 2100 DC 03/21 SC 0830 Gabapentin 300 MG Q8P PRN 03/20 1715 AC 03/20 PO 1817 Levetiracetam 250 MG BID 03/20 2100 DC 03/22 PO 03/22 0901 0951 Metoprolol Tartrate 50 MG BID 03/20 2100 AC 03/22 PO 0952 Morphine Sulfate 2 MG Q2P PRN 03/14 1415 DC 03/18 IV 2123 Polyethylene Glycol 17 GM DAILY PRN 03/02 09 AC 03/03 PO 0839 Senna 187 MG AT BEDTIME PRN 03/02 0930 AC 03/21 PO 2129 Senna/Docusate Sodium 0 .STK-MED ONE 03/21 2047 DC PO Sodium Chloride 1,000 ML Q10H 03/21 1115 AC 03/22 IV 0608 Vitamin A/Vitamin D 1 YOKO BID 03/12 1515 03/22 TOP 0952 Results Last 48 Hrs of Labs/Mics: Laboratory Tests 03/22/18 0546: Anion Gap 5, Estimated GFR > 60, BUN/Creatinine Ratio 13.3, Magnesium 1.9, CBC w Diff MAN DIFF ORDERED, RBC 3.34 L, MCV 92.4, MCH 31.6 H, MCHC 34.2, RDW 16.3 H, Gran % 52.0, Lymphocytes % 21.7, Monocytes % 25.5 H, Eosinophils % 0.6, Basophils % 0.2, Absolute Granulocytes 6.1, Absolute Lymphocytes 2.5, Absolute Monocytes 3.0 H, Absolute Eosinophils 0.1, Absolute Basophils 0, Platelet Estimate ADEQUATE, Normocytic RBCs VERIFIED, Normochromic RBCs VERIFIED, Polychromasia 03/21/18 0700: Anion Gap 7, Estimated GFR 50 L, Glucose 79, Calcium 8.1 L, Phosphorus 3.5, Magnesium 2.0, Total Bilirubin 0.7, AST 27, ALT 23, Albumin 2.8 L, CBC w Diff MAN DIFF ORDERED, RBC 3.72 L, MCV 91.9, MCH 31.4 H, MCHC 34.1, RDW 16.0 H, MPV 10.2, Gran % 66.4, Lymphocytes % 13.1 L, Monocytes % 20.3 H, Eosinophils % 0, Basophils % 0.2, Absolute Granulocytes 9.7 H, Segmented Neutrophils 57, Band Neutrophils 9 H, Absolute Lymphocytes 1.9, Lymphocytes 14 L, Monocytes 20 H, Absolute Monocytes 3.0 H, Absolute Eosinophils 0, Absolute Basophils 0, Platelet Estimate ADEQUATE, Polychromasia 1+, Anisocytosis 1+ 03/20/18 1735: Valproic Acid 84.1 Recent Imaging Studies: Telemetry personally reviewed: Atrial fibrillation, no RVR, occasional aberrantly conducted beats and PVCs Assessment/Plan Assessment/Plan 1. Seizure disorder/ecephalopathy 2. Atrial fibrillation, was not on chronic AC due to seizure disorder with refractory polysubstance abuse, currently on eliquis 5mg po bid 3. Coronary artery disease status post CABG 4. Bioprosthetic aortic valve 5. Nonsustained wide complex tachycardia, likely NSVT 6. Peripheral vascular disease 7. 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 polysubstance abuse, including cocaine 9. Hypertension 10. Hyperlipidemia 11. ?thrombocytopenia; improved 12. PNA Plan: Patient continues to be disoriented, but denies any complaints. He continues to be in atrial fibrillation, but no RVR. No recent runs of NSVT on telemetry. Normotensive today. Continue with current dose of PO metoprolol. Can continue with full dose anticoagulation with Eliquis. Continue with Plavix, statin. Continue telemetry? Yes
[2018-03-22 15:34] VITALS: BP 134/72
[2018-03-22 22:17] VITALS: BP 116/72
[2018-03-23 05:52] LABS: ABSOLUTE BASOPHIL COUNT 0 /CUMM (0.0-0.2); ABSOLUTE EOSINOPHIL COUNT 0 /CUMM (0.0-0.7); ABSOLUTE GRANULOCYTE CT 7.4 /CUMM (1.4-6.5); ABSOLUTE LYMPH COUNT 2.6 /CUMM (1.2-3.4); ABSOLUTE MONOCYTE COUNT 3.3 /CUMM (0.10-0.60); BASOPHIL % 0.2 % (0.0-2.0); EOSINOPHIL % 0.1 % (0-5); GRANULOCYTE % 55.7 % (42.2-75.2); MEAN CORPUSCULAR HGB 31.2 PG (27.0-31.0); MEAN CORPUSCULAR HGB CONC 33.9 G/DL (33.0-37.0); MEAN CORPUSCULAR VOLUME 92.1 FL (80.0-94.0); RED BLOOD CELL CT 3.36 /CUMM (4.70-6.10); WHITE BLOOD CELL COUNT 13.3 /CUMM (4.8-10.8)
[2018-03-23 06:44] VITALS: BP 120/74
[2018-03-23 06:48] LABS: PLATELET COUNT 157 /CUMM (130-400)
--- NOTE | 2018-03-23 09:33 | PN- Housestaff ---
FranCharlee olivoesh 03/23/18 0932: Subjective Follow-up For: # Encephalopathy # Paroxysmal Afib with NSVT # Ischemic right foot # PEPPER # Humeral fx and nasal fx # Leukocystosis Subjective: Pt was seen lying in bed. No events on telemonitor. Per nursing he he has thrown his food on the floor several times. Today he is more calm and his thoughts are less tangential. Review of Systems Constitutional: Reports: see HPI. Objective Last 24 Hrs of Vital Signs/I&O Vital Signs Date Time Temp Pulse Resp B/P B/P Pulse O2 O2 Flow FiO2 Mean Ox Delivery Rate 03/24 0644 97.4 61 26 122/80 94 Room Air 03/24 0215 88 32 95 Nasal 2.0L Cannula 03/23 2228 97.6 83 20 114/74 98 03/23 2200 94 Room Air 03/23 202 85 114/76 03/23 1400 98.9 88 20 110/68 95 03/23 0740 77 120/74 Intake & Output 03/24 0803/24 0000 03/23 1600 Intake Total 478 029 8881 Output Total 575 Balance 800 920 485 Intake, IV 800 800 700 Intake, Oral 0 120 360 Number 0 Bowel Movements Output, Urine 575 Patient 206 lb Weight Physical Exam General Appearance: Cooperative, Mild Distress, Somewhat Confused, Trying to get out of mir HEENT: Atraumatic, EOMI, No ovious sceral icterus Neck: Supple, No JVD Cardiovascular: Normal S1, Normal S2 Lungs: Clear to Auscultation, CTAB Abdomen: Normal Bowel Sounds, Soft, No Tenderness Current Medications: Current Medications Sig/Louise Start time Last Medication Dose Route Stop Time Status Admin Acetaminophen 1,000 MG Q6P PRN 03/11 1415 AC 03/22 N/A 1 UNIT IV 2108 Apixaban 5 MG BID 03/22 09 AC 03/23 PO 2023 Atorvastatin Calcium 40 MG 1700 03/01 1700 AC 03/23 PO 163 Clopidogrel Bisulfate 75 MG DAILY 03/14 09 AC 03/23 PO 0740 Dextrose/Sodium 1,000 ML Q13H 03/22 1030 AC 03/24 [place]ide IV 0210 Divalproex Sodium 1,000 MG BID 03/20 1039 AC 03/23 PO 2023 Docusate Sodium 100 MG DAILY NEEDED 03/02 930 AC 03/02 PO 1057 Gabapentin 300 MG Q8P PRN 03/20 1715 AC 03/23 PO 2023 Lorazepam 2 MG ONE ONE 03/23 2145 DC 03/23 IV 03/23 Lorazepam 0 .STK-MED ONE 03/23 2142 DC .ROUTE Metoprolol Tartrate 50 MG BID 03/20 2100 AC 03/23 PO 2028 Patient Medication 1 ED ONE ONE 03/23 1415 DC 03/23 Teaching ED 03/23 1416 1412 Polyethylene Glycol 17 GM DAILY PRN 03/02 0930 AC 03/03 PO 08 Senna 187 MG AT BEDTIME 03/22 2100 AC 03/23 PO 2028 Vitamin A/Vitamin D 1 YOKO BID 03/12 1515 03/23 TOP 2030 Assessment/Plan Assessment: 67 y/o M with PMH of chronic seizure disorder on valproate, CAD s/p CABG and bovine aortic valve replacement in 2013, Hodgkins lymphoma, HTN and HLD that was brought to the ED after he was found to be unresponsive. Problem List: # Encephalopathy - possibly 2/2 to seizure and/or alcohol and abuse # Paroxysmal Afib with NSVT # Ischemic right foot (superficial femoral artery occlusion) # PEPPER # Humeral fx and nasal fx (after falling during seizure prior to admission) # Leukocystosis -According to family mental status appears to be improving -He continues to have persistent leukocytosis -He is afebrile. Not requiring oxygen supplementation. Lungs CTAB. Previous WBC (2012) elevated -He is on a modified diet as recommended by ST -Continue Eliquis 5mg -Continue Depakote. -Restraints had to be increased today afternoon because pt started pulling his own lines -On D5 1/2 NS IV because pt is not eating -Continue monitoring on tele until condition improves -Patient is to follow-up with the orthopedic service as an outpatient. -Patient should also follow with the vascular surgery service as an outpatient. Problem List: 1. Seizure 2. Atrial fibrillation Pain Ratin Pain Location: NA Pain Goal: Remain pain free Pain Plan: Per pathway Tomorrow's Labs & Rationales: BEP, AME Crawford MD,Lily 03/23/18 1142: Attending MD Review Statement Attending Statement Attending MD Statement: examined this patient, discuss w/resident/PA/RANGE ECOLOGIST, agreed w/resident/PA/RANGE ECOLOGIST, reviewed EMR data (avail), discussed with nursing, discussed with case mgmt, amended to note Attending Assessment/Plan: Patient seen and examined. No events on telemetry monitoring. He remains confused. Per nursing staff he is fortunately not violent and is easily redirectable. He is occasionally jovial. I did speak with his yesterday who feels that his mental status is improving with each day. He remains very deconditioned and was max assist of 2 and a Rivas lift to mobilize him. He is afebrile. He is hemodynamically stable. He is able to move all extremities spontaneously and to command. Problems: 1. Respiratory failure requiring mechanical ventilation. Resolved. Extubated and completed treatment for polymicrobial pneumonia. 2. Encephalopathy; presumed to be toxic metabolic. Secondary to his seizure and polysubstance abuse including alcohol and cocaine. reports at baseline patient is violent on occasion. He apparently was using cocaine at his job prior to experiencing seizures for which she was hospitalized. 3. Paroxysmal atrial fibrillation with episode of nonsustained ventricular tachycardia. 4. Ischemic right foot due to superficial femoral artery occlusion status post stent placement during this hospitalization. Patient also has distal tibial disease for which treatment has been deferred by the vascular surgery service. 5. Acute kidney injury; improving 6. Distal left humerus fracture and nasal fracture following seizure prior to hospitalization 7. Coronary artery disease status post CABG. On antiplatelet therapy with Plavix. 8. Status post bioprosthetic aortic valve replacement. 9. Thrombocytopenia; resolved 10. Persistent leukocytosis Plan: -According to family mental status appears to be improving. Will monitor patient over the weekend. Provided his mental status continues to improve and is able to participate in physical therapy we will anticipate discharge to a halfway facility. is in agreement with this plan. -He continues to have persistent leukocytosis. Levels were initially improving but now elevated again. He is noted to have monocytosis. Significance of this is uncertain since she has had elevated levels dating back to 2012. His complete antibiotic course for pneumonia. He is afebrile. He is not requiring oxygen supplementation. Lungs are clear bilaterally. We will continue to monitor. -He is on a modified diet as recommended by the speech therapist. They do recommend a modified barium swallow. This will be accomplished when patient is more cooperative. Maintain aspiration precautions at all times. -He remains in atrial fibrillation. No acute events on telemetry monitoring. He is on anticoagulation therapy with Eliquis. Compliance is questionable given his prior history. -Continue Depakote. Will de-escalate restraints if he continues to improve. Once he is eating adequately IV hydration will be discontinued. For now however patient is refusing to take significant meals orally. -Patient is to follow-up with the orthopedic service as an outpatient. -Patient should also follow with the vascular surgery service as an outpatient.
--- NOTE | 2018-03-23 12:08 | PN- Cardiology ---
Subjective Subjective: Patient remains lethargic but intermittently responsive; remains in [place] vest. Objective Vital Signs and I&Os Vital Signs Date Time Temp Pulse Resp B/P B/P Pulse O2 O2 Flow FiO2 Mean Ox Delivery Rate 03/23 0740 77 120/74 03/23 0644 98.6 77 24 120/74 96 Room Air 03/22 2217 98.3 89 26 116/72 96 03/22 2116 91 116/62 03/22 1534 98.7 72 22 134/72 93 Room Air 03/22 1233 Room Air 2.0L Intake & Output 03/23 1600 03/23 0803/23 0000 03/22 1600 03/22 0803/22 0000 Intake Total 800 8243 068 1020 1000 Output Total 225 Balance 800 526 901 5226 1000 Intake, IV 800 800 800 800 800 Intake, Oral 200 120 200 200 Number 3 0 Bowel Movements Output, Urine 225 Patient 206 lb 206 lb Weight Weight Bed scale Measurement Method Physical Exam: General: Lethargic Eyes: No obvious scleral icterus. HEENT: No jugular venous distention or abnormal jugular venous pulsations. Cardiovascular: Normal intensity S1/S2. Irregular Respiratory: Mildly decreased air entry Abdomen: no guarding Musculoskeletal: No clubbing; decreased lower extremity pulses Skin: No cyanosis Current Medications: Current Medications Sig/Louise Start time Last Medication Dose Route Stop Time Status Admin Acetaminophen 0 .STK-MED ONE 03/22 2106 DC IV Acetaminophen 1,000 MG Q6P PRN 03/11 1415 AC 03/22 N/A 1 UNIT IV 2108 Apixaban 5 MG BID 03/22 900 AC 03/23 PO 0740 Atorvastatin Calcium 40 MG 1700 03/01 1700 AC 03/22 PO 1750 Bisacodyl 10 MG ONCE ONE 03/22 1645 DC 03/22 PA 03/22 1646 1804 Clopidogrel Bisulfate 75 MG DAILY 03/14 09 AC 03/23 PO 0740 Dextrose/Sodium 1,000 ML Q13H 03/22 1030 AC 03/23 Chloride IV 0559 Divalproex Sodium 1,000 MG BID 03/20 1039 AC 03/23 PO 0739 Docusate Sodium 100 MG DAILY NEEDED 03/02 930 AC 03/02 PO 1057 Gabapentin 300 MG Q8P PRN 03/20 1715 AC 03/20 PO 1817 Metoprolol Tartrate 50 MG BID 03/20 2100 AC 03/23 PO 0740 Polyethylene Glycol 17 GM DAILY PRN 03/02 930 AC 03/03 PO 0839 Senna 187 MG AT BEDTIME 03/22 2100 AC PO Senna 187 MG AT BEDTIME PRN 03/02 930 DC 03/21 PO 03/22 Sodium Chloride 1,000 ML Q10H 03/21 1115 DC 03/22 IV 0608 Vitamin A/Vitamin D 1 YOKO BID 03/12 1515 03/23 [facility] 0744 Results Last 48 Hrs of Labs/Mics: Laboratory Tests 03/23/18 0510: Anion Gap 7, Estimated GFR > 60, BUN/Creatinine Ratio 11.8, CBC w Diff MAN DIFF ORDERED, RBC 3.36 L, MCV 92.1, MCH 31.2 H, MCHC 33.9, RDW 16.0 H, MPV 10.0, Gran % 55.7, Lymphocytes % 19.3 L, Monocytes % 24.7 H, Eosinophils % 0.1, Basophils % 0.2, Absolute Granulocytes 7.4 H, Segmented Neutrophils 60, Band Neutrophils 3, Absolute Lymphocytes 2.6, Lymphocytes 15 L, Monocytes 22 H, Absolute Monocytes 3.3 H, Absolute Eosinophils 0, Absolute Basophils 0, Platelet Estimate ADEQUATE, Polychromasia 1+, Anisocytosis 1+ 03/22/18 0546: Anion Gap 5, Estimated GFR > 60, BUN/Creatinine Ratio 13.3, Magnesium 1.9, CBC w Diff MAN DIFF ORDERED, RBC 3.34 L, MCV 92.4, MCH 31.6 H, MCHC 34.2, RDW 16.3 H, Gran % 52.0, Lymphocytes % 21.7, Monocytes % 25.5 H, Eosinophils % 0.6, Basophils % 0.2, Absolute Granulocytes 6.1, Absolute Lymphocytes 2.5, Absolute Monocytes 3.0 H, Absolute Eosinophils 0.1, Absolute Basophils 0, Platelet Estimate ADEQUATE, Normocytic RBCs VERIFIED, Normochromic RBCs VERIFIED, Polychromasia Recent Imaging Studies: Telemetry tracings are personally reviewed and show atrial fibrillation Assessment/Plan Assessment/Plan 1. Seizure disorder/ecephalopathy 2. Atrial fibrillation, was not on chronic AC due to seizure disorder with refractory polysubstance abuse, currently on eliquis 5mg po bid 3. Coronary artery disease status post CABG 4. Bioprosthetic aortic valve 5. Nonsustained wide complex tachycardia, likely NSVT 6. Peripheral vascular disease 7. 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 polysubstance abuse, including cocaine 9. Hypertension 10. Hyperlipidemia 11. ?thrombocytopenia; improved 12. PNA Patient remains in atrial fibrillation with controlled ventricular response rate and no recurrent runs of wide-complex tachycardia for some time now; can continue current cardiac regimen and okay to discontinue telemetry monitoring at this time. Juan Maagllon MD [facility] Continue telemetry? No
[2018-03-23 14:00] VITALS: BP 110/68
[2018-03-23 22:28] VITALS: BP 114/74
[2018-03-24 06:44] VITALS: BP 122/80
[2018-03-24 08:58] LABS: ABSOLUTE BASOPHIL COUNT 0 /CUMM (0.0-0.2); ABSOLUTE EOSINOPHIL COUNT 0 /CUMM (0.0-0.7); ABSOLUTE GRANULOCYTE CT 6.6 /CUMM (1.4-6.5); ABSOLUTE LYMPH COUNT 2.7 /CUMM (1.2-3.4); ABSOLUTE MONOCYTE COUNT 2.9 /CUMM (0.10-0.60); BASOPHIL % 0.3 % (0.0-2.0); EOSINOPHIL % 0 % (0-5); GRANULOCYTE % 53.6 % (42.2-75.2); HEMATOCRIT 32.2 % (42-52); MEAN CORPUSCULAR HGB 31.4 PG (27.0-31.0); MEAN CORPUSCULAR HGB CONC 33.9 G/DL (33.0-37.0); MEAN CORPUSCULAR VOLUME 92.7 FL (80.0-94.0); MEAN PLATELET VOLUME 10.1 FL (7.4-10.4); RBC DISTRIBUTION WIDTH 16.2 % (11.5-14.5); RED BLOOD CELL CT 3.47 /CUMM (4.70-6.10); WHITE BLOOD CELL COUNT 12.3 /CUMM (4.8-10.8)
--- NOTE | 2018-03-24 11:26 | PN- Housestaff ---
Bienvenido Nuñezcrys 03/24/18 1126: Subjective Follow-up For: Encephalopathy Paroxysmal A. fib with NSVT Ischemic right foot PEPPER Leukocytosis Complaints: pt unable to provide hx Tele-Events Since Last Visit: No events on monitoring and evaluation advisor Subjective: Patient was lying in bed was fast asleep Review of Systems Constitutional: Reports: see HPI. Objective Last 24 Hrs of Vital Signs/I&O Vital Signs Date Time Temp Pulse Resp B/P B/P Pulse O2 O2 Flow FiO2 Mean Ox Delivery Rate 03/24 1440 98.4 65 18 120/80 97 Room Air 03/24 0806 61 122/80 03/24 0800 Nasal 1.0L Cannula 03/24 0644 97.4 61 26 122/80 94 Room Air 03/24 0215 88 32 95 Nasal 2.0L Cannula 03/23 2228 97.6 83 20 114/74 98 03/23 2200 94 Room Air 03/23 2029 85 114/76 Intake & Output 03/24 1600 03/24 0800 03/24 0000 Intake Total 1280 800 920 Output Total Balance 1280 800 920 Intake, IV 800 800 800 Intake, Oral 480 0 120 Number 0 0 Bowel Movements Patient 206 lb 206 lb Weight Physical Exam General Appearance: drowsy Cardiovascular: Normal S1, Normal S2 Lungs: Normal Air Movement Abdomen: Soft Neurological: could not be performed due to drowsiness Current Medications: Current Medications Sig/Louise Start time Last Medication Dose Route Stop Time Status Admin Acetaminophen 1,000 MG Q6P PRN 03/11 1415 AC 03/22 N/A 1 UNIT IV 2108 Apixaban 5 MG BID 03/22 09 AC 03/24 PO 0806 Atorvastatin Calcium 40 MG 1700 03/01 1700 AC 03/24 PO 1717 Clopidogrel Bisulfate 75 MG DAILY 03/14 09 AC 03/24 PO 0806 Dextrose/Sodium 1,000 ML Q13H 03/22 1030 AC 03/24 Chloride IV 1300 Divalproex Sodium 1,000 MG BID 03/20 1039 AC 03/24 PO 0805 Docusate Sodium 100 MG DAILY NEEDED 03/02 930 AC 03/02 PO 1057 Gabapentin 300 MG Q8P PRN 03/20 1715 AC 03/23 PO 2023 Lorazepam 2 MG ONE ONE 03/23 2145 DC 03/23 IV 03/23 Lorazepam 0 .STK-MED [facility] 03/23 214 DC .ROUTE Metoprolol Tartrate 50 MG BID 03/20 2100 AC 03/24 PO 08 Polyethylene Glycol 17 GM DAILY PRN 03/02 930 AC 03/03 PO 0839 Senna 187 MG AT BEDTIME 03/22 2100 AC 03/23 PO 2028 Vitamin A/Vitamin D 1 YOKO BID 03/12 1515 AC 03/24 TOP 0811 Last 24 Hrs of Lab/Kody Results Last 24 Hrs of Labs/Mics: Laboratory Tests 03/24/18 0615: CBC w Diff NO MAN DIFF REQ, RBC 3.47 L, MCV 92.7, MCH 31.4 H, MCHC 33.9, RDW 16.2 H, MPV 10.1, Gran % 53.6, Lymphocytes % 22.2, Monocytes % 23.9 H, Eosinophils % 0, Basophils % 0.3, Absolute Granulocytes 6.6 H, Absolute Lymphocytes 2.7, Absolute Monocytes 2.9 H, Absolute Eosinophils 0, Absolute Basophils 0 Assessment/Plan Assessment: 67 y/o M with PMH of chronic seizure disorder on valproate, CAD s/p CABG and bovine aortic valve replacement in 2013, Hodgkins lymphoma, HTN and HLD that was brought to the ED after he was found to be unresponsive. Problem List: Encephalopathy - possibly 2/2 to seizure and/or alcohol and abuse # Paroxysmal Afib with NSVT # Ischemic right foot (superficial femoral artery occlusion) # PEPPER # Humeral fx and nasal fx (after falling during seizure prior to admission) # Leukocystosis Plan Patient has leukocytosis of WBC count 12.3 Patient was asleep and could not be woken up He is afebrile Continue Eliquis 5 mg Patient on restraints May require Ativan or gabapentin if QTC is prolonged Patient is now on 2 L of oxygen Problem List: 1. Seizure 2. Metabolic encephalopathy Pain Ratin Pain Location: none Pain Goal: Remain pain free Pain Plan: tyelenol Tomorrow's Labs & Rationales: cbc, bmp, mg, po4 Teofilo Patel MD 03/24/18 2238: Attending MD Review Statement Attending Statement Attending MD Statement: examined this patient, discuss w/resident/PA/FORM COVERER, agreed w/resident/PA/FORM COVERER, reviewed EMR data (avail) Attending Assessment/Plan: 67M with cocaine induced seizure, with resulting left elbow fracture, required ICU stay for monitoring, with acute respiratory failure requiring intubation, now extubatd, course complicated by right SFA occlusion with right limb ischemia requiring urgent stenting, now hemodynamically stable, completed antibiotic regimen, with continued encephalopathy likely multifactorial. Patient is confused but offers no complaints, hemodynamically stable, no telemetry events. Plan - Continue on telemetry - Monitor mental status - Continue Eliquis - Metoprolol for rate control - Plavix for PAD - Continue home medications
[2018-03-24 14:40] VITALS: BP 120/80
[2018-03-24 22:51] VITALS: BP 112/84
[2018-03-25 07:22] VITALS: BP 100/70; BP 122/80
[2018-03-25 09:37] LABS: ABSOLUTE BASOPHIL COUNT 0 /CUMM (0.0-0.2); ABSOLUTE EOSINOPHIL COUNT 0 /CUMM (0.0-0.7); ABSOLUTE GRANULOCYTE CT 3.5 /CUMM (1.4-6.5); ABSOLUTE LYMPH COUNT 1.7 /CUMM (1.2-3.4); ABSOLUTE MONOCYTE COUNT 1.9 /CUMM (0.10-0.60); BASOPHIL % 0.2 % (0.0-2.0); EOSINOPHIL % 0.1 % (0-5); GRANULOCYTE % 49.4 % (42.2-75.2); MEAN CORPUSCULAR HGB 30.6 PG (27.0-31.0); MEAN CORPUSCULAR HGB CONC 33.3 G/DL (33.0-37.0); MEAN CORPUSCULAR VOLUME 91.7 FL (80.0-94.0); MEAN PLATELET VOLUME 9.8 FL (7.4-10.4); RBC DISTRIBUTION WIDTH 15.9 % (11.5-14.5)
[2018-03-25 11:37] LABS: HEMATOCRIT 42.7 % (42-52); RED BLOOD CELL CT 4.66 /CUMM (4.70-6.10)
[2018-03-25 14:45] VITALS: BP 116/80
--- NOTE | 2018-03-25 15:49 | PN- Housestaff ---
See Addendum Subjective Follow-up For: Encephalopathy Paroxysmal A. fib with NSVT Ischemic right foot PEPPER Leukocytosis Left distal humerus fracture Subjective: Patient seen resting in the bed. He does not wish to participate in the medical interview and is non-cooperative. Review of Systems Constitutional: Reports: see HPI. Objective Last 24 Hrs of Vital Signs/I&O Vital Signs Date Time Temp Pulse Resp B/P B/P Pulse O2 O2 Flow FiO2 Mean Ox Delivery Rate 03/25 1445 98.5 86 18 116/80 97 Room Air 03/25 1006 80 126/80 03/25 0722 98.1 88 20 122/80 98 Room Air 03/24 2251 99.1 90 18 112/84 97 Room Air 03/24 2208 76 112/84 Intake & Output 03/25 1600 03/25 0800 03/25 0000 Intake Total 1020 520 Output Total 600 550 Balance 420 -30 Intake, IV 800 300 Intake, Oral 220 220 Output, Urine 600 550 Physical Exam General Appearance: No Acute Distress Assessment/Plan Assessment: 67 y/o M with PMH of chronic seizure disorder on valproate, CAD s/p CABG and bovine aortic valve replacement in 2013, Hodgkins lymphoma, HTN and HLD that was brought to the ED after he was found to be unresponsive. Problems: 1. Encephalopathy - possibly 2/2 to seizure and/or alcohol and abuse 2. Paroxysmal Afib with NSVT 3. Ischemic right foot (superficial femoral artery occlusion) 4. PEPPER 5. Displaced humerus # and nasal # secondary to fall/seizure 6. Leukocystosis Plan: * Leukocytosis possibly resolved, WBC count 7.0 * Patient was non-cooperative * Continue Eliquis 5 mg and Plavix 75mg * Continue Depakote * Patient on Lamar restraint, to continue * May require Ativan or gabapentin if QTC is prolonged * Patient weaning off the nasal cannula DNR/DNI Eliquis anticoagulation Heart healthy diet--Pureed and nectar thick liquids Problem List: 1. Metabolic encephalopathy 2. Seizure 3. Ventricular ectopy 4. Atrial fibrillation 5. Alcohol dependence with withdrawal 6. Polysubstance abuse Pain Ratin Pain Location: none Pain Goal: Pain 4 or less Pain Plan: per pathway Tomorrow's Labs & Rationales: CBC, BEP, Mag
[2018-03-25 22:19] VITALS: BP 114/76
[2018-03-26 07:03] VITALS: BP 155/86
--- NOTE | 2018-03-26 07:39 | PN- Housestaff ---
Subjective Follow-up For: Encephalopathy Paroxysmal A. fib with NSVT Ischemic right foot PEPPER Leukocytosis Left distal humerus fracture Subjective: Patient seen and examined. He is irritable and alert and oriented 0. Reportedly the patient attempted to punch MST this morning. He is currently in restraints. The patient's PICC line is reportedly not working and we will order alteplase. The patient's vitals are stable and he is afebrile. He notes pain in the neck and in his left arm where he fractured his humerus during his cocaine-induced seizure. Review of Systems Constitutional: Reports: no symptoms. Cardiovascular: Reports: no symptoms. Respiratory: Reports: no symptoms. Gastrointestinal: Reports: no symptoms. Genitourinary: Reports: no symptoms. Musculoskeletal: Reports: joint pain. Skin: Reports: no symptoms. Objective Last 24 Hrs of Vital Signs/I&O Vital Signs Date Time Temp Pulse Resp B/P B/P Pulse O2 O2 Flow FiO2 Mean Ox Delivery Rate 03/26 1450 98.3 78 20 126/82 95 Room Air 03/26 0903 94 155/86 03/26 0703 98.5 94 20 155/86 97 03/25 2219 97.8 87 18 114/76 94 Room Air 03/25 2124 97.8 87 18 114/76 03/25 2000 94 Room Air Intake & Output 03/26 1600 03/26 0800 03/26 0000 Intake Total 1420 800 900 Output Total 500 Balance 1420 800 400 Intake, IV 820 800 800 Intake, Oral 600 100 Number 1 Bowel Movements Output, Urine 500 Patient 198 lb Weight Weight Bed scale Measurement Method Physical Exam General Appearance: Alert, Cooperative, No Acute Distress Skin: No Rashes Skin Temp/Moisture Exam: Warm/Dry Cardiovascular: Regular Rate, Normal S1, Normal S2, No Murmurs Lungs: Clear to Auscultation, Normal Air Movement Abdomen: Normal Bowel Sounds, Soft, No Tenderness Neurological: Normal Speech Extremities: No Clubbing, No Cyanosis, No Edema Vascular: Normal Pulses Current Medications: Current Medications Sig/Louise Start time Last Medication Dose Route Stop Time Status Admin Acetaminophen 1,000 MG Q6P PRN 03/11 1415 AC 03/22 N/A 1 UNIT IV 2108 Alteplase, 2 MG ONE ONE 03/26 1330 DC 03/26 Recombinant IV 03/26 1331 1438 Alteplase, 1 MG ONCE ONE 03/26 1315 CAN Recombinant IPL 03/26 1316 Alteplase, 2 MG ONE ONE 03/26 0400 DC 03/26 Recombinant IV 03/26 0401 0438 Apixaban 5 MG BID 03/22 09 AC 03/26 PO 0903 Atorvastatin Calcium 40 MG 1700 03/01 1700 AC 03/25 PO 1641 Clopidogrel Bisulfate 75 MG DAILY 03/14 09 AC 03/26 PO 0903 Dextrose/Sodium 1,000 ML Q13H 03/22 1030 AC 03/26 Chloride IV 1437 Divalproex Sodium 1,000 MG BID 03/20 1039 AC 03/26 PO 0904 Docusate Sodium 100 MG DAILY NEEDED 03/02 0930 AC 03/02 PO 1057 Gabapentin 300 MG Q8P PRN 03/20 1715 AC 03/23 PO 2024 Lorazepam 0.5 MG Q6 PRN 03/26 1330 AC PO 04/02 1329 Lorazepam 0 .STK-MED ONE 03/25 2237 DC PO Lorazepam 1 MG ONE ONE 03/25 2230 DC 03/25 PO 03/25 2231 2239 Magnesium Chloride 64 MG BID 03/24 2100 AC 03/26 PO 0904 Metoprolol Tartrate 50 MG BID 03/20 2100 AC 03/26 PO 0903 Patient Medication 1 ED ONE ONE 03/26 09 DC Teaching ED 03/26 09 Polyethylene Glycol 17 GM DAILY PRN 03/02 0930 AC 03/03 PO 0839 Senna 187 MG AT BEDTIME 03/22 2100 03/25 PO 2120 Vitamin A/Vitamin D 1 YOKO BID 03/12 1515 03/26 TOP 0904 Last 24 Hrs of Lab/Kody Results Last 24 Hrs of Labs/Mics: Laboratory Tests 03/26/18 0558: Anion Gap 8, Estimated GFR > 60, BUN/Creatinine Ratio 11.0, Magnesium 1.9, CBC w Diff MAN DIFF ORDERED, RBC 3.54 L, MCV 92.4, MCH 31.1 H, MCHC 33.7, RDW 16.0 H, Gran % 44.8, Lymphocytes % 24.0, Monocytes % 31.0 H, Eosinophils % 0, Basophils % 0.2, Absolute Granulocytes 5.7, Segmented Neutrophils 42 L, Band Neutrophils 4, Absolute Lymphocytes 3.1, Lymphocytes 26, Monocytes 28 H, Absolute Monocytes 4.0 H, Absolute Eosinophils 0, Absolute Basophils 0, Normocytic RBCs VERIFIED, Normochromic RBCs VERIFIED Assessment/Plan Assessment: 67 y/o M with PMH of chronic seizure disorder on valproate, CAD s/p CABG and bovine aortic valve replacement in 2013, Hodgkins lymphoma, HTN and HLD that was brought to the ED after he was found to be unresponsive. Problems: 1. Encephalopathy - possibly 2/2 to seizure and/or alcohol abuse on Keppra 1000 mg twice a day and valproic acid 2. Paroxysmal Afib with NSVT on Eliquis and metoprolol 50 twice a day 3. Ischemic right foot (superficial femoral artery occlusion status post stent placement) with distal tibial disease treatment deferred 4. PEPPER, resolved 5. Displaced humerus fracture secondary to fall/seizure on morphine 2 mg every 2 when necessary 6. Leukocystosis, increased from 7 yesterday to 12.8 today 7. Hypokalemia, resolved 8. Previous history of coronary artery disease status post CABG on Eliquis 75 mg and Lipitor 9. PICc line blockage 10. Status post treatment for polymicrobial pneumonia 11. Status post extubation for hypoxic hypercarbic respiratory failure Plan: * Patient has continued to be aggressive. Psychiatry is spoken with patient's friend who states that he is "cognitively normal" at baseline, with good memory and orientation. Friend states that patient is always "a bit of a bully and easily aggravated" at baseline. It appears that some of his behaviors are characterologic at baseline, however he does not appear to be at his cognitive baseline per collateral. At this time, patient does not appear to need acute pharmacologic intervention however would recommend conservative Ativan when needed for at agitation (would start 0.5 mg every 6 hours and increase as needed to maximum 1 mg every 4 hours, monitoring for falls and additional confusion). We also have gabapentin 300 mg 3 times a day offered. Would avoid antipsychotics at this time. Patient does not appear to be overtly psychotic and also has had elevated QTC. Would continue thiamine, folate and multivitamin. In the meantime we have placed a sitter at bedside and removed soft restraints as this could add to patient's delirium. We will try to decrease polypharmacy as much as possible. * Continue Eliquis 5 mg/metoprolol 50 mg twice a day and Plavix 75mg/Lipitor 40 mg for patient's A. fib and coronary artery disease respectively * Continue Depakote and valproic acid for patient's seizures * Patient's PICC line is malfunctioning and we will attempt alteplase * Patient had swallow evaluation done today and they are okay with regular food and thin liquids. DNR/DNI Mina anticoagulation Heart healthy diet Problem List: 1. Polysubstance abuse 2. Atrial fibrillation 3. Metabolic encephalopathy 4. Seizure Pain Ratin Pain Location: Neck and left shoulder Pain Goal: Pain 4 or less Pain Plan: Pathway Tomorrow's Labs & Rationales: NA
[2018-03-26 08:24] LABS: ABSOLUTE BASOPHIL COUNT 0 /CUMM (0.0-0.2); ABSOLUTE EOSINOPHIL COUNT 0 /CUMM (0.0-0.7); ABSOLUTE GRANULOCYTE CT 5.7 /CUMM (1.4-6.5); BASOPHIL % 0.2 % (0.0-2.0); EOSINOPHIL % 0 % (0-5)
[2018-03-26 08:32] LABS: ABSOLUTE LYMPH COUNT 3.1 /CUMM (1.2-3.4); GRANULOCYTE % 44.8 % (42.2-75.2); MEAN CORPUSCULAR HGB 31.1 PG (27.0-31.0); MEAN CORPUSCULAR HGB CONC 33.7 G/DL (33.0-37.0); MEAN CORPUSCULAR VOLUME 92.4 FL (80.0-94.0); RED BLOOD CELL CT 3.54 /CUMM (4.70-6.10)
[2018-03-26 08:48] LABS: HEMATOCRIT 32.7 % (42-52); WHITE BLOOD CELL COUNT 12.8 /CUMM (4.8-10.8)
--- NOTE | 2018-03-26 12:57 | PN- Att Addend ---
Attending Addendum Attending Brief Note Patient seen and examined, he is in Kandice and restraints. He is still delirious. He was oriented. He seemed somewhat agitated. Vital Signs Date Time Temp Pulse Resp B/P B/P Pulse O2 O2 Flow FiO2 Mean Ox Delivery Rate 03/26 0903 94 155/86 03/26 0703 98.5 94 20 155/86 97 03/25 2219 97.8 87 18 114/76 94 Room Air 03/25 2124 97.8 87 18 114/76 03/25 2000 94 Room Air 03/25 1445 98.5 86 18 116/80 97 Room Air on exam; awake, not oriented. cv; s1,s2, rrr resp; clear abd; soft, nt, bs+ ext; no edema Laboratory Tests 03/26 0558 Chemistry Sodium (137 - 145 mmol/L) 138 Potassium (3.5 - 5.1 mmol/L) 3.6 Chloride (98 - 107 mmol/L) 106 Carbon Dioxide (22 - 30 mmol/L) 24 Anion Gap (5 - 16) 8 BUN (9 - 20 mg/dL) 11 Creatinine (0.7 - 1.2 mg/dL) 1.0 Estimated GFR (>60 ml/min) > 60 BUN/Creatinine Ratio (7 - 25 %) 11.0 Magnesium (1.6 - 2.3 mg/dL) 1.9 Hematology CBC w Diff MAN DIFF ORDERED WBC (4.8 - 10.8 /CUMM) 12.8 H RBC (4.70 - 6.10 /CUMM) 3.54 L Hgb (14.0 - 18.0 G/DL) 11.0 L Hct (42 - 52 %) 32.7 L MCV (80.0 - 94.0 FL) 92.4 MCH (27.0 - 31.0 PG) 31.1 H MCHC (33.0 - 37.0 G/DL) 33.7 RDW (11.5 - 14.5 %) 16.0 H Plt Count (130 - 400 /CUMM) Gran % (42.2 - 75.2 %) 44.8 Lymphocytes % (20.5 - 51.1 %) 24.0 Monocytes % (1.7 - 9.3 %) 31.0 H Eosinophils % (0 - 5 %) 0 Basophils % (0.0 - 2.0 %) 0.2 Absolute Granulocytes (1.4 - 6.5 /CUMM) 5.7 Segmented Neutrophils (42.2 - 75.2 %) 42 L Band Neutrophils (0.0 - 5.0 %) 4 Absolute Lymphocytes (1.2 - 3.4 /CUMM) 3.1 Lymphocytes (20.5 - 51.1 %) 26 Monocytes (1.7 - 9.3 %) 28 H Absolute Monocytes (0.10 - 0.60 /CUMM) 4.0 H Absolute Eosinophils (0.0 - 0.7 /CUMM) 0 Absolute Basophils (0.0 - 0.2 /CUMM) 0 Normocytic RBCs VERIFIED Normochromic RBCs VERIFIED A/P; 67-year-old male with past medical history significant for seizure disorder CAD s/p CABG and bovine aortic valve replacement in 2013, Hodgkins lymphoma, HTN and HLD. Initially admitted to ICU with acute respiratory failure, pneumonia, got treated for pneumonia. He used cocaine binge while at work. Developed a seizure during that binge. Also has a history of paroxysmal atrial fibrillation. Initially was not on any chronic anticoagulants and secondary to noncompliance and seizure disorder but currently has been seen by cardiology and decision is made to continue the anti-coagulation. During the hospital course course complicated by right leg ischemia needing urgent stenting. Patient is encephalopathic now and still delirious. We have consulted psychiatry and they are recommending starting the patient on 0.5 mg of Ativan IV every 6 hours as needed. Patient did have EKGs which showed prolonged QTC. Psychiatric he is not recommending starting any antipsychotics at this point. We also recommended possibly relieving the strength and putting a sweater on. Will discuss this with nursing. Patient also is getting agitated with not being able to urinate or call for help when he has urge to urinate. I will address this with nursing as well. Continue all current medications including Depakote as well as Eliquis. DVT px; Eliquis.
--- NOTE | 2018-03-26 13:23 | Incdntl Nt Psy ---
Incidental Note Notation: Psychiatry reconsulted on 03/26/2018 at 10:15 in the morning by Dr. Reinoso regarding patient with persistent delirium and agitation; med recommendations. Chart and labs reviewed. Patient was seen by Dr. Pan Jacome on 03/09/2018 for initial psychiatry consultation. Per her note: "This 67-year-old male was admitted on February 26 having been found unresponsive at home. On the way to hospital he had a seizure. The patient was intubated secondary to acute respiratory failure. On admission the patient's urine was positive for cocaine [over 1000], cannabis and benzodiazepines. There was reported history of alcohol use. Throughout the course of admission the patient has had unstable ventricular arrhythmias and is currently on amiodarone drip. The patient was extubated until yesterday. Since extubation he has been agitated. Since admission the patient has been treated with propofol, lorazepam and most recently dexmedetomidine." Discussed with Dr. Reinoso and the medical attending. Their concerns were any additional medications for agitation in the context of QTc prolongation (highest during admission 543 ms, most recent EKG 495 ms). At the time of consultation, it was unclear what patient's cognitive baseline was and whether this was delirium on dementia or delirium in an otherwise cognitively functioning patient. Per resident, patient has continued to be "grouchy and agitated," however has been within behavioral control today. On evaluation today, patient found to be aggravated, confabulating, in 2-point soft restraints. Patient's chief complaint was that the restraints were getting in the way of him being able to urinate in a timely fashion. Patient kept talking about wanting a "Peapod" ( later understood to be a [place] catheter), so that he didn't have to worry about making it to the bathroom. Patient stated he was 86 years old (67 yo), and that he lives with his Brandy (this is accurate). Patient denied any SI/HI/AVH/SIB. Kept wanting to "make a deal" with content writer of how he could be discharged today. Patient stated he was in the "[facility]" and perseverated on "18" when asked what the date was or what the month was. Patient eventually stated it was October. Patient denies any other physical complaints outside of restraints and physical difficulty with urination due to restraint. Patient was unable to demonstrate where the nurse call button was, even though with within his reach even while restrained. Patient's longtime friend came to visit patient and content writer spoke with him in waiting area. Friend states that he has known patient and his for over 20 years. Friend stated he was aware of patient's drinking problem. Friend states the patient's is quite functional at home, independent with ADLs and IADLs. Friends and patient's are both concerned that patient has delirium every time is in the hospital which seems to be worsening with each admission. They' re also concerned with his continued drinking. Friend states that he is "cognitively normal" at baseline, with good memory and orientation. Friend states that patient is always "a bit of a bully and easily aggravated" at baseline. Medication List Current Psychiatric Med(s): Current Medications Sig/Louise Start time Last Medication Dose Route Stop Time Status Admin Acetaminophen 1,000 MG Q6P PRN 03/11 1415 AC 03/22 N/A 1 UNIT IV 2108 Alteplase, 2 MG ONE ONE 03/26 1330 UNVr Recombinant IV 03/26 1331 Alteplase, 1 MG ONCE ONE 03/26 1315 CANr Recombinant IPL 03/26 1316 Alteplase, 2 MG ONE ONE 03/26 0400 DC 03/26 Recombinant IV 03/26 0401 0438 Apixaban 5 MG BID 03/22 0900 AC 03/26 PO 0903 Atorvastatin Calcium 40 MG 1700 03/01 1700 AC 03/25 PO 1641 Clopidogrel Bisulfate 75 MG DAILY 03/14 0900 AC 03/26 PO 0903 Dextrose/Sodium 1,000 ML Q13H 03/22 1030 AC 03/26 Chloride IV 0328 Divalproex Sodium 1,000 MG BID 03/20 1039 AC 03/26 PO 0904 Docusate Sodium 100 MG DAILY NEEDED 03/02 0930 AC 03/02 PO 1057 Gabapentin 300 MG Q8P PRN 03/20 1715 AC 03/23 PO 202 Lorazepam 0 .STK-MED ONE 03/25 2237 DC PO Lorazepam 1 MG ONE ONE 03/25 2230 DC 03/25 PO 03/25 2231 2239 Magnesium Chloride 64 MG BID 03/24 2100 AC 03/26 PO 0904 Magnesium Sulfate 1 GM ONCE ONE 03/25 1030 DC 03/25 Dextrose/Water 100 ML IV 03/25 1429 1211 Metoprolol Tartrate 50 MG BID 03/20 2100 AC 03/26 PO 0903 Patient Medication 1 ED ONE ONE 03/26 0900 DC Teaching ED 03/26 901 Polyethylene Glycol 17 GM DAILY PRN 03/02 930 AC 03/03 PO 0839 Senna 187 MG AT BEDTIME 03/22 2100 AC 03/25 PO 2120 Vitamin A/Vitamin D 1 YOKO BID 03/12 1515 03/26 TOP 0904 Laboratory Tests 03/26/18 0558: Anion Gap 8, Estimated GFR > 60, BUN/Creatinine Ratio 11.0, Magnesium 1.9, CBC w Diff MAN DIFF ORDERED, RBC 3.54 L, MCV 92.4, MCH 31.1 H, MCHC 33.7, RDW 16.0 H, Gran % 44.8, Lymphocytes % 24.0, Monocytes % 31.0 H, Eosinophils % 0, Basophils % 0.2, Absolute Granulocytes 5.7, Segmented Neutrophils 42 L, Band Neutrophils 4, Absolute Lymphocytes 3.1, Lymphocytes 26, Monocytes 28 H, Absolute Monocytes 4.0 H, Absolute Eosinophils 0, Absolute Basophils 0, Normocytic RBCs VERIFIED, Normochromic RBCs VERIFIED 03/25/18 0645: Anion Gap 8, Estimated GFR > 60, BUN/Creatinine Ratio 10.0, Magnesium 1.5 L, CBC w Diff NO MAN DIFF REQ, RBC 4.66 L, MCV 91.7, MCH 30.6, MCHC 33.3, RDW 15.9 H, MPV 9.8, Gran % 49.4, Lymphocytes % 23.8, Monocytes % 26.5 H, Eosinophils % 0.1, Basophils % 0.2, Absolute Granulocytes 3.5, Absolute Lymphocytes 1.7, Absolute Monocytes 1.9 H, Absolute Eosinophils 0, Absolute Basophils 0 Vital Signs Date Time Temp Pulse Resp B/P B/P Pulse O2 O2 Flow FiO2 Mean Ox Delivery Rate 03/26 903 94 155/86 03/26 07 98.5 94 20 155/86 97 03/25 2219 97.8 87 18 114/76 94 Room Air 03/25 2124 97.8 87 18 114/76 03/25 2000 94 Room Air 03/25 1445 98.5 86 18 116/80 97 Room Air Assessment/Plan Assessment/Plan 67-year-old male, admitted for sequelae of alcohol, cocaine, cannabis and benzodiazepine use on 03/01/2018 with initial care in the ICU with intubation and florid delirium, continuing to remain disoriented, aggravated and agitated, however feeling physically much better than he did on admission. At this time, patient is frustrated that he is still in the hospital and appears that some of his behaviors are characterologic at baseline, however he does not appear to be at his cognitive baseline per collateral. At this time, patient does not appear to need acute pharmacologic intervention however would recommend conservative Ativan when needed for at agitation (would start 0.5 mg every 6 hours and increase as needed to maximum 1 mg every 4 hours, monitoring for falls and additional confusion). Would avoid antipsychotics at this time. Patient does not appear to be overtly psychotic and also has had elevated QTC. Would continue thiamine, folate and multivitamin. May be a component of Wernicke's/ Korsakoff from long-standing alcoholism affecting his cognitive function at this time, however collateral states that he has normal cognitive function at baseline. Would reduced polypharmacy as much as possible, since this may be contributing to delirium. May opt for sitter at bedside and remove soft restraints for patient's comfort as long as he continues to maintain behavioral control, replace as needed. Since toileting appears to be his primary complaint , would see if patient can be more frequently offered bathroom breaks or consider [place] catheter. Gentle but firm limit setting along with frequent reorientation and maintaining his day night circadian rhythm may help reduce confusion. Would recheck ammonia level if clinically indicated to monitor for additional hepatic encephalopathy (was previously normal). Continue to monitor fall risk while patient remains confused. Please contact psychiatry consult liaison with questions 8:30 AM to 4:30 PM or on-call psychiatrist evenings and weekends. As Ranked by this Provider Problem List: 1. Seizure 2. Metabolic encephalopathy 3. Polysubstance abuse 4. Atrial fibrillation 5. Alcohol dependence with withdrawal 6. PVC (premature ventricular contraction) Consult Acknowledgment - Thank you for your consult request.
[2018-03-26 14:50] VITALS: BP 126/82
--- NOTE | 2018-03-26 18:00 | Discharge Summary ---
Visit Information Visit Dates Admission Date: 02/26/18 Discharge Date: 04/05/18 Hospital Course Course Attending Physician: Tamara Moon MD Primary Care Physician: Ariel [facility]Cuc[facility] Course: 67 y/o M with PMH of chronic seizure disorder since 2014 on valproate, large arachnoid cyst in his left temporal area with mass effect to the underlying temporal area (appears stable since 2014), CAD s/p CABG and bovine aortic valve replacement in 2013, Hodgkins lymphoma treated with chemoradiation, HTN and HLD that was brought to the ED after he was found to be unresponsive. Most of the history has been obtained from the over telephone. The states that patient went to work earlier this morning around 6am. At that time, the patient seemed a little off to her. He was found comatose around 7.30am and EMS was called. En route to the hospital, the patient had an episode of seizure for which he was given Midazolam by EMS. The patient is reported to be in his usual state of health until yesterday. Last the patient had a work related accident where he fell and landed on his face resulting in injury to his nose and back. He did not seek medical attention though had persistent complains of neck and nose pain. His last episode of seizure was in August where he a 'mild seizure' and was seen at [facility] at the time. He follows a neurologist Dr Lima Rinaldi at [facility]. He has been on Divalproex which he is compliant with. Was on Keppra in the past, but states that this medication made him irritable. states that since the start of his seizure disorder in 2014, he has been more irritable overall. He followed with his neurologist last month and states everything was normal. He smokes marijuana and drinks alcohol. Had 4-5 beers and a shot of tequila yesterday. Patient was last admitted to [place] in 2014 and he was seen for a similar episode requiring intubation. ROS is negative except for exertional shortness of breath per . Follows Dr Magallon as continuity writer and Dr. Rosa, part of Dr. Fox George's primary care group. Patient has a history of continued alcohol abuse. Patient was found to be in afib in the ED, utox positive for cocaine, benzos. Found to have acute displaced transcondular fracture of distal humerus, likely suffered during seizure. Patient hypoxic, was intubated, admitted in ICU and placed on ventilator. Patient was treated for status epilepticus/seizure disorder with IV antiepileptic medications and for acute hypoxic respiratory failure. Patient was found to have atrial fibrillation and he was given IV heparin for anticoagulation. His heart rate was controlled with IV metoprolol. His blood and urine culture remained negative. His sputum culture was growing MSSA and Escherichia coli possibly due to aspiration pneumonia. He was treated for aspiration pneumonia for 7 days with Unasyn. Patient had nonsustained V. tach and cardiology recommended amiodarone drip and Medrol drip was discontinued on 03/12/2018. Patient remained intubated for 9 days. Patient was found to have cold right leg with diminished pulses. Right leg Doppler study showed occlusion of superficial femoral artery. Vascular consult was placed and they recommended CTA with runoff. Later on vascular surgery placed stent. Patient has distal tibial disease as well but treatment for this was deferred. During the hospital stay patient had thrombocytopenia and heparin drip was stopped and patient was given argatroban drip. His HIT panel remained negative so he was again changed to IV heparin drip. Continued plavix. Patient also had acute kidney injury that improved. Patient was extubated on 03/08/18 but patient was confused due to toxic metabolic encephalopathy. Possibly patient was oversedated due to multiple drug use he was on for sedation and analgesia, patient had acute hypoxic and hypercapnic respiratory failure. ABG was done that showed respiratory acidosis due to carbon dioxide retention and patient was having hypoxia. Intubation was done again on 03/14/2018. Patient's sedating analgesic medications were discontinued including Haldol, Ativan, Dilaudid and gabapentin. Patient was kept on minimum possible dose of Ativan prn and when necessary Haldol. For agitation patient was given Precedex that was tapered. His QTC was checked and on one EKG was high, so Haldol was avoided as much as possible. His respiration improved and he was extubated again on 03/16/18. Patient was given supplemental oxygen and he was able to maintain saturation above 92%. His IV heparin was changed to Lovenox as he was not able to take by mouth. Later on his mental status improved and swallow evaluation was done. Patient had diarrhea while in the ICU and rectal tube was placed, c.diff was negative. Patient was able to take his medications orally. On discharge from the ICU, patient was still confused but able to take oral diet. He was on heart healthy pure and honey thick diet to prevent aspiration. His Lovenox was switched to Eliquis on transition to the floors. Cardiology increased his metoprolol from 25 mg bid to 50mg bid after he was found to have NSVT. For his arm fracture, repeat xray showed minimal displacement after conservative management with splint. Mechanical ventilation: Patient was intubated on and extubated on 03/08/18. Patient was again intubated on 03/14/2018 and extubated on 03/16/2018. Antibiotic plan: Completed 7 days course of Unasyn for possible aspiration pneumonia. Catheter/Lines plan: Patient had English's catheter and PICC line. HOPSITAL COURSE ON GENERAL MEDICAL FLOORS: Encephalopathy Patient remained very confused during the beginning of his stay on the floors, waxing and waning confusion. This patient who is chronic alcoholic may have developed Wernicke Korsakoff syndrome. However this is less likely given patient's chronic alcohol use and the acute nature of the patient's confusion that began with his admission here after his seizure. His seizures/head trauma were likely causes of his confusion but we started high dose thiamine. For patient's seizure wec continued valproic acid 1 g twice a day and held Keppra which was weaned in ICU by neurology. For continued confusion and agitation we reconsulted with psychiatry. As per patient's , he was "cognitively normal" at baseline, with good memory and orientation although patient is usually easily aggrevated at baseline. It appears that some of his behaviors are characterologic at baseline, however he did not appear to be at his cognitive baseline i.e. on and off confused per collateral. As per psych, scheduled ativan was given for three days to calm patient but we stopped this when he became overly sedated during daytime hours. We rechecked an EKG and QTC was normal, so we started Seroquel 12.5 mg every night. We also had gabapentin 300 mg 3 times a day offered. Cognitive status improved significantly and as per patient's , he was mostly back at baseline. Leukocytosis with fever Patient was found to have evidence of UTI UA and his urine was growing Serratia. We started the patient on ceftriaxone which it is sensitive to but had transitioned the patient to Bactrim DS 1 tab daily. Antibiotics were started on March 28 and he finished course. At discharge, the patient is afebrile. Ischemic right foot Status post stent placement. Ischemia has resolved. 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 We will refer to vascular outpatient for treatment of this. Hypertension Patient had a bout of hypertension while on the floor. He is being continued on metoprolol 50 mg twice daily for his paroxysmal A. fib with SVT which helped with his blood pressure. We will continue prazosin for urinary retention with added effect of blood pressure control. Arm pain secondary to displaced humerus fracture after fall/seizure Patienthad continued pain, was on ofirmev prn. Orthopedist saw the patient in the ICU and states that given his medical condition and mental status as well as stability of the fracture, he recommends continued conservative nonoperative management with continued splinting. He recommended no use of the left elbow for pushing or pulling or lifting if it caused pain. He recommended repeat x- rays of the left elbow in his splint again to check fracture reduction and potential healing activity. This was done on March 15 and showed no significant interval change to the transcondylar fracture with continued minimal anterior and medial displacement. I spoke with Dr. Hightower's office previously and they suggested that we refer him for follow-up but no extra treatment for now. I spoke with Dr. Anuj Silver regarding the patient's weight bearing tolerance on that left arm and he stated that he should weight-bear as tolerated, limited to a nonpainful level. We should continue to wrap the arm to maintain the splint. We will refer patient for follow-up with Dr. Hightower. Most recent x-ray of the humerus and forearm showed healing transcondylar fracture of the distal left humerus. Of note, x-rays showed "probable old trauma or postoperative change in the proximal radius with absence of the radial head". Patient reports no previous injury or surgery to the area. Is requesting workup for this outpatient as well. Monocytosis Patient was found to have increased monocytes that dates as far back to 2012. The patient does have a history of Hodgkin's lymphoma, states that he has had non-Hodgkin's lymphoma treated in March of 1999. Patient sees Dr. Carlos Traore in [place] as his oncologist layaway clerk. WBC level normal. This appears to be a chronic issue, currently of unclear significance, so we will refer him to follow up on this outpatient. Urinary retention most likely secondary to BPH Patient was placed on straight cath protocol during his stay on the floors. Patient was started on doxazosin which should also help with his hypertension. No issues with urinary retention following this. Allergies: Coded Allergies: bee venom protein (honey bee) (UNKNOWN 02/26/18) Disposition Summary Disposition Principal Diagnosis: SEIZURE Additional Diagnosis: METABOLIC ENCEPHALOPATHY RESPIRATORY FAILURE PNEUMONIA DISTAL HUMERUS FRACTURE AFIB PERIPHERAL VASCULAR DISEASE Discharge Disposition: SNF Discharge Instructions General Discharge Information Code Status: Do Not Resucitate/Intubat Patient's Diet: HEART HEALTHY Patient's Activity: TOLERATED, PAIN LIMITED USE OF LEFT ARM, CONTINUE TO SPLINT LEFT ARM. Follow-Up Instructions/Appts: -PLEASE FOLLOW UP WITH PCP IN ONE WEEK -PLEASE FOLLOW UP WITH NEUROLOGY IN ONE WEEK -PLEASE FOLLOW UP WITH VASCULAR IN ONE WEEK -PLEASE FOLLOW UP WITH ORTHO IN ONE WEEK -PLEASE FOLLOW UP WITH SHEARER HELPER IN ONE WEEK -PLEASE FOLLOW UP WITH CARDIOLOGY IN ONE WEEK Medications at Discharge Discharge Medications: Stop taking the following medications: Metoprolol Tartrate (Metoprolol Tartrate) 25 MG TABLET ORAL TWICE DAILY Qty = 180 Duloxetine HCl (Duloxetine HCl) 60 MG CAPSULE.DR ORAL DAILY Qty = 60 Continue taking these medications: Divalproex Sodium (Divalproex Sodium ER) 500 MG TAB.ER.24H 2 Tablet ORAL TWICE DAILY Comments: Last Taken:04/04/18 Time:0800 AM Atorvastatin Calcium (Atorvastatin Calcium) 40 MG TABLET 1 Tablet ORAL DAILY Qty = 90 Comments: Last Taken:04/03/18 Time:4:15 PM Start taking the following new medications: Apixaban (Eliquis) 5 MG TABLET 5 Milligram ORAL TWICE DAILY Qty = 30 No Refills Comments: Last Taken:04/04/18 Time:0800 AM Clopidogrel Bisulfate (Plavix) 75 MG TABLET 75 Milligram ORAL DAILY Qty = 30 No Refills Comments: Last Taken:04/04/18 Time:0800 AM Doxazosin (Cardura) 1 MG TABLET 1 Milligram ORAL AT BEDTIME Qty = 30 No Refills Comments: Last Taken:04/04/18 Time:8:30 PM Metoprolol Tartrate (Metoprolol Tartrate) 50 MG TABLET 50 Milligram ORAL TWICE DAILY Qty = 60 No Refills Comments: Last Taken:04/04/18 Time:0800 AM Quetiapine Fumarate (Quetiapine Fumarate) 25 MG TABLET 12.5 Milligram ORAL Every night Qty = 30 No Refills Comments: Last Taken:04/03/18 Time:8:30 PM Multivitamin (One Daily Multivitamin) 1 EACH TABLET 1 Tablet ORAL DAILY Qty = 30 No Refills Comments: Last Taken:04/04/18 Time:0800 AM Copies To: Carlos Franz MD; Eugenie ANDERSON,Joseph Gonzalez; Naun ANDERSON,[facility]; Ariel ANDERSON, Fox Hightower MD,Lakhwinder
--- NOTE | 2018-03-26 19:41 | PN- Cardiology ---
Subjective Subjective: Patient seen at bedside. Denies chest pain, palpitations, dyspnea. States that he wants to go home. Appears confused, says that he "wants to get back to [facility]." Objective Vital Signs and I&Os Vital Signs Date Time Temp Pulse Resp B/P B/P Pulse O2 O2 Flow FiO2 Mean Ox Delivery Rate 03/26 1450 98.3 78 20 126/82 95 Room Air 03/26 0903 94 155/86 03/26 0703 98.5 94 20 155/86 97 03/25 2219 97.8 87 18 114/76 94 Room Air 03/25 2124 97.8 87 18 114/76 03/25 2000 94 Room Air Intake & Output 03/26 1600 03/26 0803/26 0000 03/25 1600 03/25 0000 Intake Total 1420 434 043 9976 520 Output Total 500 600 550 Balance 1420 800 400 420 -30 Intake, IV 820 800 800 800 300 Intake, Oral 600 100 220 220 Number 1 Bowel Movements Output, Urine 500 600 550 Patient 89.925 kg Weight Weight Bed scale Measurement Method Physical Exam: General: awake, alert Eyes: No obvious scleral icterus. HEENT: No jugular venous distention or abnormal jugular venous pulsations. Cardiovascular: Normal intensity S1/S2. Irregular, +pansystolic murmur across precordium best heard at base Respiratory: Mildly decreased air entry Abdomen: no guarding Musculoskeletal: No clubbing; decreased lower extremity pulses Skin: No cyanosis Current Medications: Current Medications Sig/Louise Start time Last Medication Dose Route Stop Time Status Admin Acetaminophen 1,000 MG Q6P PRN 03/11 1415 AC 03/22 N/A 1 UNIT IV 2108 Alteplase, 2 MG ONE ONE 03/26 1330 DC 03/26 Recombinant IV 03/26 1331 1438 Alteplase, 1 MG ONCE ONE 03/26 1315 CAN Recombinant IPL 03/26 1316 Alteplase, 2 MG ONE ONE 03/26 0400 DC 03/26 Recombinant IV 03/26 0401 0438 Apixaban 5 MG BID 03/22 900 AC 03/26 PO 0903 Atorvastatin Calcium 40 MG 1700 03/01 1700 AC 03/26 PO 1717 Clopidogrel Bisulfate 75 MG DAILY 03/14 900 AC 03/26 PO 0903 Dextrose/Sodium 1,000 ML Q13H 03/22 1030 03/26 Chloride IV 1437 Divalproex Sodium 1,000 MG BID 03/20 1039 AC 03/26 PO 0904 Docusate Sodium 100 MG DAILY NEEDED 03/02 0930 03/02 PO 1057 Gabapentin 300 MG Q8P PRN 03/20 1715 AC 03/23 PO 2024 Lorazepam 0.5 MG Q6 PRN 03/26 1330 AC 03/26 PO 04/02 1329 1748 Lorazepam 0 .STK-MED ONE 03/25 2237 DC PO Lorazepam 1 MG ONE ONE 03/25 2230 DC 03/25 PO 03/25 2231 2239 Magnesium Chloride 64 MG BID 03/24 2100 03/26 PO 0904 Metoprolol Tartrate 50 MG BID 03/20 2100 03/26 PO 0903 Patient Medication 1 ED ONE ONE 03/26 0900 DC Teaching ED 03/26 0901 Polyethylene Glycol 17 GM DAILY PRN 03/02 0930 03/03 PO 0839 Senna 187 MG AT BEDTIME 03/22 2100 03/25 PO 2120 Vitamin A/Vitamin D 1 YOKO BID 03/12 1515 03/26 TOP 0904 Results Last 48 Hrs of Labs/Mics: Laboratory Tests 03/26/18 0558: Anion Gap 8, Estimated GFR > 60, BUN/Creatinine Ratio 11.0, Magnesium 1.9, CBC w Diff MAN DIFF ORDERED, RBC 3.54 L, MCV 92.4, MCH 31.1 H, MCHC 33.7, RDW 16.0 H, Gran % 44.8, Lymphocytes % 24.0, Monocytes % 31.0 H, Eosinophils % 0, Basophils % 0.2, Absolute Granulocytes 5.7, Segmented Neutrophils 42 L, Band Neutrophils 4, Absolute Lymphocytes 3.1, Lymphocytes 26, Monocytes 28 H, Absolute Monocytes 4.0 H, Absolute Eosinophils 0, Absolute Basophils 0, Normocytic RBCs VERIFIED, Normochromic RBCs VERIFIED 03/25/18 0645: Anion Gap 8, Estimated GFR > 60, BUN/Creatinine Ratio 10.0, Magnesium 1.5 L, CBC w Diff NO MAN DIFF REQ, RBC 4.66 L, MCV 91.7, MCH 30.6, MCHC 33.3, RDW 15.9 H, MPV 9.8, Gran % 49.4, Lymphocytes % 23.8, Monocytes % 26.5 H, Eosinophils % 0.1, Basophils % 0.2, Absolute Granulocytes 3.5, Absolute Lymphocytes 1.7, Absolute Monocytes 1.9 H, Absolute Eosinophils 0, Absolute Basophils 0 Recent Imaging Studies: not currently on telemetry Assessment/Plan Assessment/Plan 1. Seizure disorder/ecephalopathy 2. Atrial fibrillation, was not on chronic AC due to seizure disorder with refractory polysubstance abuse, currently on eliquis 5mg po bid 3. Coronary artery disease status post CABG 4. Bioprosthetic aortic valve 5. Nonsustained wide complex tachycardia, likely NSVT 6. Peripheral vascular disease 7. 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 polysubstance abuse, including cocaine 9. Hypertension 10. Hyperlipidemia 11. ?thrombocytopenia; improved 12. PNA Patient remains confused, but is otherwise stable from a cardiovascular standpoint. Not tachycardic. continue with plavix, statin, metorpolol, eliquis. Continue telemetry? Not applicable (pt not on tele)
[2018-03-26 21:23] VITALS: BP 170/115
[2018-03-27 05:50] LABS: ABSOLUTE BASOPHIL COUNT 0 /CUMM (0.0-0.2); ABSOLUTE EOSINOPHIL COUNT 0 /CUMM (0.0-0.7); ABSOLUTE GRANULOCYTE CT 7.4 /CUMM (1.4-6.5); ABSOLUTE LYMPH COUNT 2.6 /CUMM (1.2-3.4); ABSOLUTE MONOCYTE COUNT 4.8 /CUMM (0.10-0.60); BASOPHIL % 0.3 % (0.0-2.0); EOSINOPHIL % 0 % (0-5); GRANULOCYTE % 49.8 % (42.2-75.2); HEMATOCRIT 32.2 % (42-52); MEAN CORPUSCULAR HGB 31.2 PG (27.0-31.0); MEAN CORPUSCULAR HGB CONC 34.3 G/DL (33.0-37.0); MEAN CORPUSCULAR VOLUME 90.9 FL (80.0-94.0); RBC DISTRIBUTION WIDTH 15.4 % (11.5-14.5); RED BLOOD CELL CT 3.54 /CUMM (4.70-6.10); WHITE BLOOD CELL COUNT 14.8 /CUMM (4.8-10.8)
[2018-03-27 06:21] LABS: MEAN PLATELET VOLUME ND FL (7.4-10.4)
[2018-03-27 06:30] VITALS: BP 150/88
[2018-03-27 09:57] VITALS: BP 146/84
--- NOTE | 2018-03-27 10:39 | RADIOLOGY REPORT ---
EXAMINATION: XR PORTABLE CHEST CLINICAL INFORMATION: Fever. Presumptive diagnosis of aspiration. COMPARISON: Several prior chest x-rays, most recent of which is dated 03/16/2018. TECHNIQUE: Portable AP semierect view of the chest was obtained. FINDINGS: The patient is status post median sternotomy. Right subclavian PICC line is in place with its tip in the mid SVC. The cardiomediastinal silhouette is enlarged, unchanged. Lungs bilaterally are symmetrically expanded with minimal linear subsegmental atelectasis seen in the lung bases, much improved compared to the previous study. No focal consolidation, effusion or pneumothorax is seen. The left CP angle is not fully included on this exam. Bony structures are unremarkable. IMPRESSION: Minimal persistent bibasilar subsegmental atelectasis. No focal pneumonia.
--- NOTE | 2018-03-27 11:14 | PN- Housestaff ---
KerrieJeff 03/27/18 1057: Subjective Follow-up For: Encephalopathy Fever with leukocytosis Paroxysmal A. fib with NSVT Ischemic right foot Left distal humerus fracture Complaints: Patient highly confused Tele-Events Since Last Visit: No site monitor Subjective: Review the patient lying on the bed with a sitter by the bedside. The patient continued to remain very confused speaking nonsense words which are totally not connecting. Overnight the patient was febrile to 100.3 he is now taking regular diet although was getting pured before due to risk of aspiration. He cannot respond to any question intelligently. Review of Systems Constitutional: Reports: fever. Denies: chills. Cardiovascular: Denies: chest pain, palpitations. Respiratory: Denies: cough, short of breath. Comments: Patient is not responding to review of system questions talking nonsense staff which and was not making sense Objective Last 24 Hrs of Vital Signs/I&O Vital Signs Date Time Temp Pulse Resp B/P B/P Pulse O2 O2 Flow FiO2 Mean Ox Delivery Rate 03/27 0957 99.4 146/84 03/27 0745 71 03/27 0630 100.3 82 20 150/88 95 Room Air 03/26 2154 170/115 03/26 2123 98.9 86 18 170/115 98 Room Air 03/26 1450 98.3 78 20 126/82 95 Room Air Intake & Output 03/27 1600 03/27 0800 03/27 0000 Intake Total 1040 440 Output Total Balance 1040 440 Intake, IV 800 200 Intake, Oral 240 240 Patient 192 lb Weight Physical Exam General Appearance: Alert, Cooperative, No Acute Distress, confused Skin: No Rashes Skin Temp/Moisture Exam: Warm/Dry Sepsis Skin Exam (color): Normal for Ethnicity HEENT: Atraumatic, Mucous Membr. moist/pink Neck: Supple, No JVD Cardiovascular: Regular Rate, Normal S1, Normal S2 Lungs: Clear to Auscultation, Normal Air Movement Abdomen: Normal Bowel Sounds, Soft, No Tenderness Neurological: Normal Speech, Normal Tone Extremities: No Clubbing, No Cyanosis, No Edema Vascular: Normal Pulses Current Medications: Current Medications Sig/Louise Start time Last Medication Dose Route Stop Time Status Admin Acetaminophen 1,000 MG Q6P PRN 03/11 1415 AC 03/22 N/A 1 UNIT IV 210 Alteplase, 2 MG ONE ONE 03/26 1330 DC 03/26 Recombinant IV 03/26 1331 1438 Alteplase, 1 MG ONCE ONE 03/26 1315 CAN Recombinant IPL 03/26 1316 Apixaban 5 MG BID 03/22 0900 AC 03/27 PO 0743 Atorvastatin Calcium 40 MG 1700 03/01 1700 AC 03/26 PO 1717 Clopidogrel Bisulfate 75 MG DAILY 03/14 0900 AC 03/27 PO 0745 Dextrose/Sodium 1,000 ML Q13H 03/22 1030 DC 03/27 Chloride IV 0038 Divalproex Sodium 1,000 MG BID 03/20 1039 AC 03/27 PO 0743 Docusate Sodium 100 MG DAILY NEEDED 03/02 0930 AC 03/02 PO 1057 Gabapentin 300 MG Q8P PRN 03/20 1715 AC 03/23 PO 2024 Lorazepam 0.5 MG ONE ONE 03/27 0245 DC 03/27 PO 03/27 0246 0249 Lorazepam 0.5 MG Q6 PRN 03/26 1330 AC 03/26 PO 04/02 1329 2329 Magnesium Chloride 64 MG BID 03/24 2100 AC 03/27 PO 0743 Metoprolol Tartrate 50 MG BID 03/20 2100 AC 03/27 PO 0745 Polyethylene Glycol 17 GM DAILY PRN 03/02 0930 AC 03/03 PO 0839 Senna 187 MG AT BEDTIME 03/22 2100 AC 03/26 PO 2154 Vitamin A/Vitamin D 1 YOKO BID 03/12 1515 AC 03/27 TOP 0745 Last 24 Hrs of Lab/Kody Results Last 24 Hrs of Labs/Mics: Laboratory Tests 03/27/18 0539: CBC w Diff NO MAN DIFF REQ, RBC 3.54 L, MCV 90.9, MCH 31.2 H, MCHC 34.3, RDW 15.4 H, MPV ND, Gran % 49.8, Lymphocytes % 17.8 L, Monocytes % 32.1 H, Eosinophils % 0, Basophils % 0.3, Absolute Granulocytes 7.4 H, Absolute Lymphocytes 2.6, Absolute Monocytes 4.8 H, Absolute Eosinophils 0, Absolute Basophils 0 Microbiology 03/27 1037 BLOOD: Blood Culture - RECD 03/27 1010 BLOOD: Blood Culture - RECD 03/27 0941 URINE ROUT: Urine Culture - ORD Assessment/Plan Assessment: 67 y/o M with PMH of chronic seizure disorder on valproate, CAD s/p CABG and bovine aortic valve replacement in 2013, Hodgkins lymphoma, HTN and HLD that was brought to the ED after he was found to be unresponsive. Patient has been in the hospital for the past 1 month initially admitted in the ICU and required intubation. Overnight the patient required 2 doses of 0.5 mg Ativan for agitation. He was also febrile to 100.3 and his WBC has increased to 14,800 from 12,800. Encephalopathy Patient remains very confused he has history of substance abuse significantly alcohol. Is speaking words which are not making sense which seem to be some kind of confabulation. This patient who is chronic alcoholic might had developed Wernekes Korsakoff. Will continue with thiamine, folic acid and multivitamins supplementations. Continue to follow psychiatric consult and plans for subsequent care post discharge. Leukocytosis with fever This is a patient who had difficulty swallowing and was on pured diet but started on regular diet from yesterday. Will do swallow evaluation by speech therapist assess if the patient is aspirating. Doing a workup with urine and blood cultures urine analysis and chest x-ray to look for the cause of fever and leukocytosis. Ischemic right foot Status post stent placement. Ischemia has resolved. Coronary artery disease status post CABG Patient on Eliquis 5 mg, clopidogrel 75 mg and atorvastatin 40 mg daily. Will continue with medication with heart health diet. Hypertension Patient is on metoprolol 50 mg twice a day. Overnight highest blood pressure 170/115 these can be attributed to agitation. We will continue to monitor blood pressure closely and if on the higher side will start low-dose Norvasc. Continue to monitor blood pressure. Hypomagnesemia Yesterday magnesium was 1.5 received correction and today is 1.9. We will continue with daily dose of magnesium supplementation. Problem List: 1. Polysubstance abuse 2. Arterial occlusion 3. Metabolic encephalopathy 4. Seizure 5. Alcohol dependence with withdrawal Pain Ratin Pain Location: NONE Pain Goal: Remain pain free Pain Plan: PRN meds Tomorrow's Labs & Rationales: CBC to continue to trend WBCs DVT/Prophylaxis: mechanical, pharmacological Tamara Moon MD 03/27/18 1139: Attending Review Statement Attending Statement Attending MD Statement: examined this patient, discuss w/resident/PA/TEXTILE COLORIST FORMULATOR, agreed w/resident/PA/TEXTILE COLORIST FORMULATOR, reviewed EMR data (avail), discussed with nursing, discussed with case mgmt, reviewed images, amended to note Attending Assessment/Plan: Patient seen and examined, remains delirious. He does not make any sense when he talks. He just kept on saying he has to go he has to go. He is off of restraints and now has a sitter. He had a fever spike earlier this morning. Vital Signs Date Time Temp Pulse Resp B/P B/P Pulse O2 O2 Flow FiO2 Mean Ox Delivery Rate 03/27 0957 99.4 146/84 03/27 0745 71 03/27 0630 100.3 82 20 150/88 95 Room Air 03/26 2154 170/115 03/26 2123 98.9 86 18 170/115 98 Room Air 03/26 1450 98.3 78 20 126/82 95 Room Air on exam; aox3, nad. cv; s1,s2, rrr resp; decreased bs at bases. abd: soft, nt, bs+ ext; no edema Laboratory Tests 03/27 0539 Hematology CBC w Diff NO MAN DIFF REQ WBC (4.8 - 10.8 /CUMM) 14.8 H RBC (4.70 - 6.10 /CUMM) 3.54 L Hgb (14.0 - 18.0 G/DL) 11.0 L Hct (42 - 52 %) 32.2 L MCV (80.0 - 94.0 FL) 90.9 MCH (27.0 - 31.0 PG) 31.2 H MCHC (33.0 - 37.0 G/DL) 34.3 RDW (11.5 - 14.5 %) 15.4 H Plt Count (130 - 400 /CUMM) MPV (7.4 - 10.4 FL) ND Gran % (42.2 - 75.2 %) 49.8 Lymphocytes % (20.5 - 51.1 %) 17.8 L Monocytes % (1.7 - 9.3 %) 32.1 H Eosinophils % (0 - 5 %) 0 Basophils % (0.0 - 2.0 %) 0.3 Absolute Granulocytes (1.4 - 6.5 /CUMM) 7.4 H Absolute Lymphocytes (1.2 - 3.4 /CUMM) 2.6 Absolute Monocytes (0.10 - 0.60 /CUMM) 4.8 H Absolute Eosinophils (0.0 - 0.7 /CUMM) 0 Absolute Basophils (0.0 - 0.2 /CUMM) 0 A/P; 67-year-old male with past medical history significant for seizure disorder CAD s/p CABG and bovine aortic valve replacement in 2013, Hodgkins lymphoma, HTN and HLD. Initially admitted to ICU with acute respiratory failure, pneumonia, got treated for pneumonia. He used cocaine binge while at work. Developed a seizure during that binge. Also has a history of paroxysmal atrial fibrillation. Initially was not on any chronic anticoagulants and secondary to noncompliance and seizure disorder but currently has been seen by cardiology and decision is made to continue the anti-coagulation. During the hospital course course complicated by right leg ischemia needing urgent stenting. Patient is encephalopathic and still delirious. Fever spike earlier in the morning. Will check a chest x-ray. Will also check a urinalysis, urine culture and blood culture. Chest x-ray shows atelectatic changes. We will encourage out of bed to chair. Unfortunately due to his delirium I am not sure if patient will be able to comply with incentive spirometer. We will watch him off of antibiotics for now. Patient was seen by speech therapist again and his diet has been advanced to regular diet with thin liquids. We have to watch for any signs of aspiration. Blood pressure was slightly high, will stop the IV fluids and monitor the blood pressure. If it continues to run high then we will add another antihypertensive. Patient was also evaluated by psychiatry yesterday and they recommended to add Ativan. Patient did receive 2 doses of Ativan overnight. Continue to reorient during the day, please add melatonin to help him sleep at night. Lack of sleep certainly increases the delirium. DVT prophylaxis: Mina.
[2018-03-27 14:20] VITALS: BP 145/90
[2018-03-27 22:42] VITALS: BP 149/73
[2018-03-28 06:15] VITALS: BP 138/80
--- NOTE | 2018-03-28 08:14 | PN- Housestaff ---
Kemar ANDERSON,Jade 03/28/18 0813: Subjective Follow-up For: Encephalopathy Paroxysmal A. fib with NSVT Ischemic right foot PEPPER Leukocytosis Left distal humerus fracture Subjective: Patient seen and examined. He remains quite confused. He is less aggressive and agitated, however. Patient has stable vitals except for a mild spiking fever of 100.3 yesterday and 100 overnight. His blood pressure is in an acceptable range with the last value reading 138/80. This is decreased from his blood pressure yesterday 170/115. The patient continues on metoprolol which is the only medication he is on that would affect his blood pressure. The patient denies any urinary symptoms but was found to be growing gram-negative rods with evidence of UTI on urinalysis. The patient denies any other symptoms other than pain in his left arm secondary to his humerus fracture. He does have some moderate edema of his left hand with his arm currently wrapped tightly with Alen bandage. Review of Systems Constitutional: Reports: no symptoms. Cardiovascular: Reports: no symptoms. Respiratory: Reports: no symptoms. Gastrointestinal: Reports: no symptoms. Musculoskeletal: Reports: joint pain. Skin: Reports: no symptoms. Neurological/Psychological: Reports: cognitive dysfunction, confusion. Objective Last 24 Hrs of Vital Signs/I&O Vital Signs Date Time Temp Pulse Resp B/P B/P Pulse O2 O2 Flow FiO2 Mean Ox Delivery Rate 03/28 0742 78 138/80 03/28 0615 100.0 87 22 138/80 97 Room Air 03/27 2242 98.2 84 20 149/73 99 Room Air 03/27 2152 74 145/90 03/27 1420 99.7 74 28 145/90 98 Room Air Intake & Output 03/28 1600 03/28 0800 03/28 0000 Intake Total 240 250 Output Total 300 400 Balance -60 -150 Intake, IV 0 10 Intake, Oral 240 240 Number 0 0 Bowel Movements Output, Urine 300 400 Patient 179 lb Weight Physical Exam General Appearance: Alert, Cooperative, No Acute Distress Skin: No Rashes Skin Temp/Moisture Exam: Warm/Dry Sepsis Skin Exam (color): Normal for Ethnicity HEENT: Atraumatic, PERRLA, EOMI Cardiovascular: Regular Rate, Normal S1, Normal S2, No Murmurs Lungs: Clear to Auscultation, Normal Air Movement Abdomen: Normal Bowel Sounds, Soft, No Tenderness Neurological: Normal Speech Extremities: No Clubbing, No Cyanosis, left arm edema Vascular: Normal Pulses, Pulses Symmetrical Current Medications: Current Medications Sig/Louise Start time Last Medication Dose Route Stop Time Status Admin Acetaminophen 1,000 MG Q6P PRN 03/11 1415 AC 03/22 N/A 1 UNIT IV 2108 Apixaban 5 MG BID 03/22 09 AC 03/28 PO 0742 Atorvastatin Calcium 40 MG 1700 03/01 1700 AC 03/27 PO 1741 Ceftriaxone Sodium 1,000 MG DAILY 03/28 1246 AC IV Clopidogrel Bisulfate 75 MG DAILY 03/14 0900 AC 03/28 PO 0742 Divalproex Sodium 1,000 MG BID 03/20 1039 AC 03/28 PO 0743 Docusate Sodium 100 MG DAILY NEEDED 03/02 0930 AC 03/02 PO 1057 Gabapentin 300 MG Q8P PRN 03/20 1715 AC 03/23 PO 2024 Lorazepam 0.5 MG Q6 PRN 03/26 1330 AC 03/28 PO 04/02 1329 1045 Magnesium Chloride 64 MG BID 03/24 2100 AC 03/28 PO 0742 Melatonin 5 MG AT BEDTIME 03/27 2100 AC 03/27 PO 2141 Metoprolol Tartrate 50 MG BID 03/20 2100 AC 03/28 PO 0742 Polyethylene Glycol 17 GM DAILY PRN 03/02 0930 AC 03/03 PO 0839 Senna 187 MG AT BEDTIME 03/22 2100 AC 03/27 PO 2141 Vitamin A/Vitamin D 1 YOKO BID 03/12 1515 AC 03/28 TOP 0742 Assessment/Plan Assessment: 67 y/o M with PMH of chronic seizure disorder on valproate, CAD s/p CABG and bovine aortic valve replacement in 2013, Hodgkins lymphoma, HTN and HLD that was brought to the ED after he was found to be unresponsive. Patient has been in the hospital for the past 1 month initially admitted in the ICU and required intubation. Yesterday, the patient required 2 doses of 0.5 mg Ativan for agitation. He was also febrile to 100.3 and his WBC has increased to 14,800 from 12,800. Today the patient's temperature has dropped to 100. He continues to be quite confused. He was found to have gram-negative rods growing in his urine with evidence of UTI on urinalysis. The patient's blood pressure has normalized, down from 170/115 yesterday. Encephalopathy Patient remains very confused he has history of substance abuse significantly alcohol. Is speaking words which are not making sense which seem to be some kind of confabulation. This patient who is chronic alcoholic might had developed Wernicke Korsakoff syndrome. However this is less likely given patient's chronic alcohol use and the acute nature of the patient's confusion that began with his admission here. His seizures could be the cause of his confusion. In any case, we will continue with thiamine, folic acid and multivitamins. Continue to follow psychiatric consult and plans for subsequent care post discharge. Psychiatry spoke with patient's friend who states that he is "cognitively normal " at baseline, with good memory and orientation. Friend states that patient is always "a bit of a bully and easily aggravated" at baseline. I personally spoke with patient's who stated that after the patient started to have seizures, he became a different person, more aggressive with one violent episode noted towards his . It appears that some of his behaviors are characterologic at baseline, however he does not appear to be at his cognitive baseline i.e. confused per collateral. At this time, patient does not appear to need acute pharmacologic intervention however would recommend conservative Ativan when needed for at agitation (would start 0.5 mg every 6 hours and increase as needed to maximum 1 mg every 4 hours, monitoring for falls and additional confusion). We also have gabapentin 300 mg 3 times a day offered. Would avoid antipsychotics at this time. Patient does not appear to be overtly psychotic and also has had elevated QTC. Would continue thiamine, folate and multivitamin. In the meantime we have placed a sitter at bedside and removed soft restraints as this could add to patient's delirium. We will try to decrease polypharmacy as much as possible. Leukocytosis with fever Patient was found to have evidence of UTI UA and his urine is growing gram- negative rods. We have started the patient on ceftriaxone and will await sensitivities. Currently the patient is afebrile and we will repeat CBCs for tomorrow. Ischemic right foot Status post stent placement. Ischemia has resolved. Hypertension The patient was found to be hypertensive yesterday but his blood pressure has decreased in normal range today. He is being continued on metoprolol 50 mg twice daily for his paroxysmal A. fib with SVT which is also helping with his blood pressure. If the patient continues to have elevated blood pressure, we can give him Norvasc low-dose. A. fib and coronary artery disease status post CABG Patient on Eliquis 5 mg, clopidogrel 75 mg and atorvastatin 40 mg daily. Will continue with medication with heart healthy diet. Hypomagnesemia Patient was previously found to be hypomagnesemic. We will retest his magnesium levels tonight. Arm pain secondary to displaced humerus fracture after fall/seizure Patient currently notes continued pain, is on morphine 2 mg every 2 hours as needed. Orthopedist saw the patient in the ICU and states that given his medical condition and mental status as well as stability of the fracture over the past 12 days, he recommends continued conservative nonoperative management with continued splinting. He recommended no use of the left elbow for pushing or pulling or lifting. He recommended repeat x-rays of the left elbow in his splint again to check fracture reduction and potential healing activity. This was done on March 15 and showed no significant interval change to the transcondylar fracture with continued minimal anterior and medial displacement. Patient is DNR/DNI Heart healthy diet DVT prophylaxis with Eliquis and Alps Problem List: 1. Metabolic encephalopathy 2. Seizure 3. Atrial fibrillation Pain Ratin Pain Location: left arm Pain Goal: Pain 4 or less Pain Plan: pathway Tomorrow's Labs & Rationales: Martín Whitehead 03/28/18 1137: Attending MD Review Statement Attending Statement Attending MD Statement: examined this patient, discuss w/resident/PA/DRAIN TECHNICIAN, agreed w/resident/PA/DRAIN TECHNICIAN, reviewed EMR data (avail), discussed with nursing, discussed with case mgmt Attending Assessment/Plan: Vital Signs Date Time Temp Pulse Resp B/P B/P Pulse O2 O2 Flow FiO2 Mean Ox Delivery Rate 03/28 0742 78 138/80 03/28 0615 100.0 87 22 138/80 97 Room Air 03/27 2242 98.2 84 20 149/73 99 Room Air 03/27 2152 74 145/90 03/27 1420 99.7 74 28 145/90 98 Room Air 67-year-old male with past medical history significant for seizure disorder CAD s/p CABG and bovine aortic valve replacement in 2013, Hodgkins lymphoma, HTN and HLD. Initially admitted to ICU with acute respiratory failure, pneumonia, got treated for pneumonia. He used cocaine binge while at work. Developed a seizure during that binge. Also has a history of paroxysmal atrial fibrillation. Initially was not on any chronic anticoagulants and secondary to noncompliance and seizure disorder but currently has been seen by cardiology and decision is made to continue the anti-coagulation. During the hospital course course complicated by right leg ischemia needing urgent stenting. Patient is encephalopathic and still delirious. Low grade fever this am and positive UA- will start on ceftriaxone and f/u on urine cultures. will cont to monitor closely and will see how he does and recheck wbc in am .
[2018-03-28 14:12] VITALS: BP 130/80
[2018-03-28 22:24] VITALS: BP 131/70
[2018-03-29 05:59] VITALS: BP 128/66
[2018-03-29 06:05] LABS: ABSOLUTE BASOPHIL COUNT 0 /CUMM (0.0-0.2); ABSOLUTE EOSINOPHIL COUNT 0 /CUMM (0.0-0.7); ABSOLUTE LYMPH COUNT 2.4 /CUMM (1.2-3.4); BASOPHIL % 0.3 % (0.0-2.0); EOSINOPHIL % 0 % (0-5); GRANULOCYTE % 56.1 % (42.2-75.2); HEMATOCRIT 34.8 % (42-52); MEAN CORPUSCULAR HGB 31.3 PG (27.0-31.0); MEAN CORPUSCULAR HGB CONC 34.4 G/DL (33.0-37.0); MEAN CORPUSCULAR VOLUME 91.2 FL (80.0-94.0); RBC DISTRIBUTION WIDTH 15.8 % (11.5-14.5); RED BLOOD CELL CT 3.81 /CUMM (4.70-6.10); WHITE BLOOD CELL COUNT 12.5 /CUMM (4.8-10.8)
--- NOTE | 2018-03-29 07:44 | PN- Housestaff ---
Kemar ANDERSON,Jade 03/29/18 0744: Subjective Follow-up For: Encephalopathy resolving Paroxysmal A. fib with NSVT Peripheral vascular disease Left distal humerus fracture Subjective: Patient seen and examined. The patient is confused and sleeping on and off during first interview but on interview with the whole team, he is much more clear mentally. He is able to discuss his treatment plan with only mild confusion. He has no complaints and complains of less pain in his left arm. His vitals are stable overnight. Review of Systems Constitutional: Reports: no symptoms. EENTM: Reports: no symptoms. Cardiovascular: Reports: no symptoms. Respiratory: Reports: no symptoms. Gastrointestinal: Reports: no symptoms. Genitourinary: Reports: no symptoms. Musculoskeletal: Reports: joint pain. Skin: Reports: no symptoms. Neurological/Psychological: Reports: cognitive dysfunction, confusion. Objective Last 24 Hrs of Vital Signs/I&O Vital Signs Date Time Temp Pulse Resp B/P B/P Pulse O2 O2 Flow FiO2 Mean Ox Delivery Rate 03/29 1428 98.0 78 20 117/79 96 Room Air 03/29 0901 77 128/66 03/29 0559 98.2 77 20 128/66 95 Room Air 03/28 2224 98.8 74 18 131/70 95 Room Air 03/28 2153 74 131/70 Intake & Output 03/29 1600 03/29 0800 03/29 0000 Intake Total 400 320 580 Output Total 450 250 Balance 400 -130 330 Intake, IV 0 80 100 Intake, Oral 400 240 480 Number 0 0 0 Bowel Movements Output, Urine 450 250 Patient 179 lb Weight Weight Bed scale Measurement Method Physical Exam General Appearance: Alert, Oriented X3, Cooperative, No Acute Distress Skin: No Rashes Skin Temp/Moisture Exam: Warm/Dry Sepsis Skin Exam (color): Normal for Ethnicity Cardiovascular: Regular Rate, Normal S1, Normal S2, No Murmurs Lungs: Clear to Auscultation Abdomen: Normal Bowel Sounds, Soft, No Tenderness, No Hepatospenomegaly Neurological: Normal Speech Extremities: No Clubbing, No Cyanosis, Normal Pulses, mild edema of the left hand with brace placed for patient's distal humerus fracture Current Medications: Current Medications Sig/Louise Start time Last Medication Dose Route Stop Time Status Admin Acetaminophen 0 .STK-MED ONE 03/28 2023 DC IV Acetaminophen 1,000 MG Q6P PRN 03/11 1415 AC 03/28 N/A 1 UNIT IV 2030 Apixaban 5 MG BID 03/22 0900 AC 03/29 PO 0901 Atorvastatin Calcium 40 MG 1700 03/01 1700 AC 03/28 PO 1759 Ceftriaxone Sodium 1,000 MG 1400 03/29 1400 AC 03/29 IV 1300 Clopidogrel Bisulfate 75 MG DAILY 03/14 0900 AC 03/29 PO 0901 Divalproex Sodium 1,000 MG BID 03/20 1039 AC 03/29 PO 0901 Docusate Sodium 100 MG DAILY NEEDED 03/02 0930 AC 03/02 PO 1057 Gabapentin 300 MG Q8P PRN 03/20 1715 AC 03/23 PO 2024 Lorazepam 0.5 MG Q6 PRN 03/26 1330 AC 03/28 PO 04/02 1329 1045 Magnesium Chloride 64 MG BID 03/24 2100 AC 03/29 PO 0901 Melatonin 5 MG AT BEDTIME 03/27 2100 AC 03/28 PO 2029 Metoprolol Tartrate 50 MG BID 03/20 2100 AC 03/29 PO 0901 Multivitamins 1 TAB DAILY 03/29 1043 AC 03/29 PO 1259 Polyethylene Glycol 17 GM DAILY PRN 03/02 0930 AC 03/03 PO 0839 Senna 187 MG AT BEDTIME 03/22 2100 AC 03/28 PO 2030 Thiamine HCl 100 MG DAILY 03/29 1043 AC 03/29 PO 1259 Vitamin A/Vitamin D 1 YOKO BID 03/12 1515 AC 03/29 TOP 0901 Last 24 Hrs of Lab/Kody Results Last 24 Hrs of Labs/Mics: Laboratory Tests 03/29/18 1443: Vitamin B12 Pending 03/29/18 0520: CBC w Diff NO MAN DIFF REQ, RBC 3.81 L, MCV 91.2, MCH 31.3 H, MCHC 34.4, RDW 15.8 H, Gran % 56.1, Lymphocytes % 19.5 L, Monocytes % 24.1 H, Eosinophils % 0, Basophils % 0.3, Absolute Granulocytes 7.0 H, Absolute Lymphocytes 2.4, Absolute Monocytes 3.0 H, Absolute Eosinophils 0, Absolute Basophils 0 Assessment/Plan Assessment: 67 y/o M with PMH of chronic seizure disorder on valproate, CAD s/p CABG and bovine aortic valve replacement in 2013, Hodgkins lymphoma, HTN and HLD that was brought to the ED after he was found to be unresponsive. Patient has been in the hospital for the past 1 month initially admitted in the ICU and required intubation. Yesterday, the patient required 2 doses of 0.5 mg Ativan for agitation. He was also febrile to 100.3 and his WBC has increased to 14,800 from 12,800. Today the patient's temperature has dropped to 100. He continues to be quite confused. He was found to have gram-negative rods growing in his urine with evidence of UTI on urinalysis. The patient's blood pressure has normalized, down from 170/115 two days back. Encephalopathy Patient remains very confused he has history of substance abuse significantly alcohol and cocaine. Today is more clear and is able to speak meaningfully about his healthcare. This morning the patient was more confused. This patient who is chronic alcoholic may have developed Wernicke Korsakoff syndrome. However this is less likely given patient's chronic alcohol use and the acute nature of the patient's confusion that began with his admission here after his seizure. His seizures/head trauma could be the cause of his confusion. In any case, we will continue with thiamine, folic acid and multivitamins. Continue to follow psychiatric consult and plans for subsequent care post discharge. For patient's seizure he is currently on valproic acid 1 g twice a day and KEPPRA. Patient notes that Her head medium quite aggressive in the past. Psychiatry spoke with patient's friend who states that he is "cognitively normal " at baseline, with good memory and orientation. Friend states that patient is always "a bit of a bully and easily aggravated" at baseline. I personally spoke with patient's who stated that after the patient started to have seizures in 2014, he became a different person, more aggressive with one violent episode noted towards his . It appears that some of his behaviors are characterologic at baseline, however he does not appear to be at his cognitive baseline i.e. on and off confused per collateral. At this time, patient does not appear to need acute pharmacologic intervention however we are continuing conservative Ativan when needed for at agitation (would start 0.5 mg every 6 hours when necessary and increase as needed to maximum 1 mg every 4 hours, monitoring for falls and additional confusion). We also have gabapentin 300 mg 3 times a day offered. Would avoid antipsychotics at this time. Patient does not appear to be overtly psychotic and also has had elevated QTC. We will continue with bedside sitter. We will try to decrease polypharmacy as much as possible. We have ordered a B12 level for today which is pending. We have also ordered physical therapy to return to mobilize the patient as his inactivity may be contributing to his overall confusion/lethargy. Leukocytosis with fever Patient was found to have evidence of UTI UA and his urine is growing Serratia. We have started the patient on ceftriaxone which it is sensitive to. Currently the patient is afebrile. Ischemic right foot Status post stent placement. Ischemia has resolved. 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 We will refer to vascular. Hypertension Normotensive today. He is being continued on metoprolol 50 mg twice daily for his paroxysmal A. fib with SVT which is also helping with his blood pressure. If the patient does have elevated blood pressure, we can give him Norvasc low- dose. A. fib and coronary artery disease status post CABG Patient on Eliquis 5 mg, clopidogrel 75 mg and atorvastatin 40 mg daily. Will continue with medication with heart healthy diet. Hypomagnesemia Patient was previously found to be hypomagnesemic. Resolved. Arm pain secondary to displaced humerus fracture after fall/seizure Patient currently notes continued pain, is on ofirmev prn. Orthopedist saw the patient in the ICU and states that given his medical condition and mental status as well as stability of the fracture over the past 12 days, he recommends continued conservative nonoperative management with continued splinting. He recommended no use of the left elbow for pushing or pulling or lifting. He recommended repeat x-rays of the left elbow in his splint again to check fracture reduction and potential healing activity. This was done on March 15 and showed no significant interval change to the transcondylar fracture with continued minimal anterior and medial displacement. I spoke with Dr. Hightower's office today and they suggested that we refer him for follow-up but no extra treatment for now. Patient has had occupational therapy see him in-house. Monocytosis Patient was found to have increased monocytes that dates as far back to 2012. The patient does have a history of Hodgkin's lymphoma, states that he has had non-Hodgkin's lymphoma treated. We will speak with the patient's regarding this to get a better idea as to why the patient's monocyte level is elevated. Patient is DNR/DNI Heart healthy diet DVT prophylaxis with Eliquis and Alps Problem List: 1. Metabolic encephalopathy Pain Ratin Pain Location: Left elbow Pain Goal: Pain 4 or less Pain Plan: Pathway Tomorrow's Labs & Rationales: None Martín Devine 03/29/18 1100: Attending MD Review Statement Attending Statement Attending MD Statement: examined this patient, discuss w/resident/PA/VICE INVESTIGATOR, agreed w/resident/PA/VICE INVESTIGATOR, reviewed EMR data (avail), discussed with nursing, discussed with case mgmt Attending Assessment/Plan: Laboratory Tests 03/29/18 0520: CBC w Diff NO MAN DIFF REQ, RBC 3.81 L, MCV 91.2, MCH 31.3 H, MCHC 34.4, RDW 15.8 H, Gran % 56.1, Lymphocytes % 19.5 L, Monocytes % 24.1 H, Eosinophils % 0, Basophils % 0.3, Absolute Granulocytes 7.0 H, Absolute Lymphocytes 2.4, Absolute Monocytes 3.0 H, Absolute Eosinophils 0, Absolute Basophils 0 Vital Signs Date Time Temp Pulse Resp B/P B/P Pulse O2 O2 Flow FiO2 Mean Ox Delivery Rate 03/29 0901 77 128/66 03/29 0559 98.2 77 20 128/66 95 Room Air 03/28 2224 98.8 74 18 131/70 95 Room Air 03/28 2153 74 131/70 03/28 1412 98.0 84 20 130/80 93 Room Air 67-year-old male with past medical history significant for seizure disorder CAD s/p CABG and bovine aortic valve replacement in 2013, Hodgkins lymphoma, HTN and HLD. Initially admitted to ICU with acute respiratory failure, pneumonia, got treated for pneumonia. He used cocaine binge while at work. Developed a seizure during that binge. Also has a history of paroxysmal atrial fibrillation. Initially was not on any chronic anticoagulants and secondary to noncompliance and seizure disorder but currently has been seen by cardiology and decision is made to continue the anti-coagulation. During the hospital course course complicated by right leg ischemia needing urgent stenting. UTI-Urine culture growing Serratia- will cont on ceftriaxone . will cont to monitor closely and will see how he does Delerium- seems to be improving and pt is more oriented today and knows he is in [place] and is aware of most of the things going on. Started pt on MVI and thiamine. will check b12 level. Chronic elevated monocytes- unclear etiology . will talk to pts about it . Afib- on eliquis and metoprolol . cardiology input appreciated will d/w pts the disposition plan.
[2018-03-29 14:28] VITALS: BP 117/79
[2018-03-29 22:00] VITALS: BP 120/68
[2018-03-30 06:45] VITALS: BP 141/82
--- NOTE | 2018-03-30 08:13 | PN- Housestaff ---
Kemar ANDERSNO,Jade 03/30/18 08: Subjective Follow-up For: AMS Subjective: Patient is alert and oriented today x3. He has periods of confusion. Last night he apparently had an episode of suicidal ideation. However he called his in the morning and apparently said that he "just said that but didnt mean it". No complaints except for the lingering pain in the left arm. vitals are stable. Review of Systems Constitutional: Reports: no symptoms. EENTM: Reports: no symptoms. Cardiovascular: Reports: no symptoms. Respiratory: Reports: no symptoms. Gastrointestinal: Reports: no symptoms. Genitourinary: Reports: no symptoms. Musculoskeletal: Reports: joint pain. Skin: Reports: no symptoms. Objective Last 24 Hrs of Vital Signs/I&O Vital Signs Date Time Temp Pulse Resp B/P B/P Pulse O2 O2 Flow FiO2 Mean Ox Delivery Rate 03/31 0635 97.2 57 18 124/66 95 Room Air 03/30 2100 98.0 94 18 137/86 98 Room Air 03/30 2042 105 137/86 03/30 1503 98.2 76 20 137/116 97 Room Air 03/30 1056 140/82 Intake & Output 03/31 1600 03/31 0800 03/31 0000 Intake Total 340 200 Output Total 250 Balance 90 200 Intake, IV 100 Intake, Oral 240 200 Output, Urine 250 Patient 115 lb Weight Physical Exam General Appearance: Alert, Oriented X3, Cooperative, No Acute Distress Skin: No Rashes, No Breakdown, No Significant Lesion Skin Temp/Moisture Exam: Warm/Dry Sepsis Skin Exam (color): Normal for Ethnicity HEENT: Atraumatic, PERRLA, EOMI, Mucous Membr. moist/pink Cardiovascular: Regular Rate, Normal S1, Normal S2 Lungs: Clear to Auscultation Abdomen: Normal Bowel Sounds, Soft, No Tenderness Neurological: Normal Speech Extremities: No Clubbing, No Cyanosis, less left arm swellling Vascular: Normal Pulses, Pulses Symmetrical Sepsis Peripheral Pulse Location: Radial Sepsis Peripheral Pulse Exam: Normal Current Medications: Current Medications Sig/Louise Start time Last Medication Dose Route Stop Time Status Admin Acetaminophen 1,000 MG Q6P PRN 03/11 1415 AC 03/28 N/A 1 UNIT IV 2030 Apixaban 5 MG BID 03/22 0900 AC 03/30 PO 204 Atorvastatin Calcium 40 MG 1700 03/01 1700 AC 03/30 PO 1747 Ceftriaxone Sodium 1,000 MG 1400 03/29 1400 AC 03/30 IV 1447 Clopidogrel Bisulfate 75 MG DAILY 03/14 0900 AC 03/30 PO 1056 Divalproex Sodium 1,000 MG BID 03/20 1039 AC 03/30 PO 2041 Docusate Sodium 100 MG DAILY NEEDED 03/02 0930 AC 03/02 PO 1057 Gabapentin 300 MG Q8P PRN 03/20 1715 AC 03/23 PO 202 Lorazepam 0.5 MG Q6 PRN 03/26 1330 DC 03/29 PO 04/02 1329 1951 Magnesium Chloride 64 MG BID 03/24 2100 AC 03/30 PO 2042 Melatonin 5 MG AT BEDTIME 03/27 2100 AC 03/30 PO 204 Metoprolol Tartrate 50 MG BID 03/20 2100 AC 03/30 PO 2042 Multivitamins 1 TAB DAILY 03/29 1043 AC 03/30 PO 1056 Polyethylene Glycol 17 GM DAILY PRN 03/02 0930 AC 03/03 PO 0839 Quetiapine Fumarate 25 MG BID 03/30 2100 AC 03/30 PO 2042 Senna 187 MG AT BEDTIME 03/22 2100 AC 03/30 PO 2042 Thiamine HCl 500 MG 8AM 03/30 0915 CAN IV 04/03 0801 Thiamine HCl 500 MG 0800 03/30 0915 AC 03/30 Sodium Chloride 250 ML IV 04/03 0859 1057 Vitamin A/Vitamin D 1 YOKO BID 03/12 1515 AC 03/30 TOP 2043 Last 24 Hrs of Lab/Kody Results Last 24 Hrs of Labs/Mics: Laboratory Tests 03/31/18 0550: Anion Gap 8, Estimated GFR > 60, BUN/Creatinine Ratio 25.0 Assessment/Plan Assessment: 67 y/o M with PMH of chronic seizure disorder on valproate, CAD s/p CABG and bovine aortic valve replacement in 2013, Hodgkins lymphoma, HTN and HLD that was brought to the ED after he was found to be unresponsive. Patient has been in the hospital for the past 1 month initially admitted in the ICU and required intubation. Yesterday, the patient required 2 doses of 0.5 mg Ativan for agitation. He was also febrile to 100.3 and his WBC has increased to 14,800 from 12,800. Today the patient's temperature has dropped to 100. He continues to be quite confused. He was found to have gram-negative rods growing in his urine with evidence of UTI on urinalysis. The patient's blood pressure has normalized, down from 170/115 two days back. Encephalopathy Patient remains very confused he has history of substance abuse significantly alcohol and cocaine. Today is more clear and is able to speak meaningfully about his healthcare. This morning the patient was more confused. This patient who is chronic alcoholic may have developed Wernicke Korsakoff syndrome. However this is less likely given patient's chronic alcohol use and the acute nature of the patient's confusion that began with his admission here after his seizure. His seizures/head trauma could be the cause of his confusion. In any case, we will continue with thiamine, folic acid and multivitamins. Continue to follow psychiatric consult and plans for subsequent care post discharge. For patient's seizure he is currently on valproic acid 1 g twice a day and KEPPRA. Patient notes that Her head medium quite aggressive in the past. Psychiatry spoke with patient's friend who states that he is "cognitively normal " at baseline, with good memory and orientation. Friend states that patient is always "a bit of a bully and easily aggravated" at baseline. I personally spoke with patient's who stated that after the patient started to have seizures in 2014, he became a different person, more aggressive with one violent episode noted towards his . It appears that some of his behaviors are characterologic at baseline, however he does not appear to be at his cognitive baseline i.e. on and off confused per collateral. Ativan has been ordered for him but we will stop this as he has continued to be confused and recheck an EKG and if QTC normal, we will start Seroquel. We also have gabapentin 300 mg 3 times a day offered. We will continue with bedside sitter. We will try to decrease polypharmacy as much as possible. B12 level is normal. We have ordered physical therapy to return to mobilize the patient as his inactivity may be contributing to his overall confusion/lethargy. We have placed the patient on high dose thiamine for 5 days. He has a long history of alcohol abuse and has not been tried on this during his admission. Leukocytosis with fever Patient was found to have evidence of UTI UA and his urine is growing Serratia. We have started the patient on ceftriaxone which it is sensitive to. Currently the patient is afebrile. Ischemic right foot Status post stent placement. Ischemia has resolved. 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 We will refer to vascular. Hypertension Normotensive today. He is being continued on metoprolol 50 mg twice daily for his paroxysmal A. fib with SVT which is also helping with his blood pressure. If the patient does have elevated blood pressure, we can give him Norvasc low- dose. A. fib and coronary artery disease status post CABG Patient on Eliquis 5 mg, clopidogrel 75 mg and atorvastatin 40 mg daily. Will continue with medication with heart healthy diet. Hypomagnesemia Patient was previously found to be hypomagnesemic. Resolved. Arm pain secondary to displaced humerus fracture after fall/seizure Patient currently notes continued pain, is on ofirmev prn. Orthopedist saw the patient in the ICU and states that given his medical condition and mental status as well as stability of the fracture over the past 12 days, he recommends continued conservative nonoperative management with continued splinting. He recommended no use of the left elbow for pushing or pulling or lifting. He recommended repeat x-rays of the left elbow in his splint again to check fracture reduction and potential healing activity. This was done on March 15 and showed no significant interval change to the transcondylar fracture with continued minimal anterior and medial displacement. I spoke with Dr. Hightower's office and they suggested that we refer him for follow-up but no extra treatment for now. Patient has had occupational therapy see him in-house. Monocytosis Patient was found to have increased monocytes that dates as far back to 2012. The patient does have a history of Hodgkin's lymphoma, states that he has had non-Hodgkin's lymphoma treated in March of 1999. Patient sees Dr. Carlos Traore in [place] as his oncologist data collection technician. WBC level normal. This appears to be a chronic issue so we will refer him to follow up on this outpatient. Patient is DNR/DNI Heart healthy diet DVT prophylaxis with Eliquis and Alps Problem List: 1. Metabolic encephalopathy Pain Ratin Pain Location: left arm Pain Goal: Pain 4 or less Pain Plan: prn Tomorrow's Labs & Rationales: none Martín Devine 03/30/18 1254: Attending MD Review Statement Attending Statement Attending MD Statement: examined this patient, discuss w/resident/PA/FRAME STRIPPER AND CRUSHER, agreed w/resident/PA/FRAME STRIPPER AND CRUSHER, reviewed EMR data (avail), discussed with nursing, discussed with case mgmt Attending Assessment/Plan: Delerium- will get EKG and look at Qtc interval and if ok will start low dose seroquel at night and see how he does. Will start high dose iv thiamine . B12 level was normal. Monocytosis- will need outpt f/u with his data collection technician.
[2018-03-30 15:03] VITALS: BP 137/116
--- NOTE | 2018-03-30 17:48 | RADIOLOGY REPORT ---
EXAMINATION: CR LEFT FOREARM. CR LEFT HUMERUS. CLINICAL INFORMATION: Fracture previously. Assess now for OT. Pain. COMPARISON: Left elbow dated 03/15/2018 and 03/10/2018 and 02/26/2018. TECHNIQUE: Frontal and lateral views of the left humerus. Frontal and lateral views of the left forearm, performed on 3 images. FINDINGS: Left humerus and left forearm: There is now interval healing change with exuberant callus formation seen about the times condylar distal humeral fracture. Alignment is near anatomic on the limited images available. No new superimposed acute fracture or dislocation is seen. There is degenerative change at the elbow joint, similar to prior exam. There is prior resection of the radial head. The radiocarpal joint is intact with mild degenerative changes seen at the radiocarpal joint and the radioulnar joint. No radiopaque foreign body is seen in the soft tissues. There is some calcification seen adjacent to the greater tuberosity of the humeral head, suggesting calcific tendinitis. The glenohumeral joint and acromioclavicular joint are intact and unremarkable. Included left ribs are intact IMPRESSION: Healing transcondylar fracture of the distal left humerus.
[2018-03-30 21:00] VITALS: BP 137/86
[2018-03-31 06:35] VITALS: BP 124/66
--- NOTE | 2018-03-31 09:26 | PN- Housestaff ---
See Addendum Subjective Follow-up For: ams Subjective: Patient was sleeping at the time of interview but was awoken and the blinds opened. Patient has had issues with sleeping throughout the day and we are attempting to orient him daily and keep him awake during the day times. His vitals are stable. The patient states that he has no complaints. He saw his early this morning and was happy about that. He is alert and oriented 1. Review of Systems Constitutional: Reports: no symptoms. EENTM: Reports: no symptoms. Cardiovascular: Reports: no symptoms. Respiratory: Reports: no symptoms. Gastrointestinal: Reports: no symptoms. Genitourinary: Reports: no symptoms. Musculoskeletal: Reports: joint pain. Skin: Reports: no symptoms. Neurological/Psychological: Reports: confusion. Objective Last 24 Hrs of Vital Signs/I&O Vital Signs Date Time Temp Pulse Resp B/P B/P Pulse O2 O2 Flow FiO2 Mean Ox Delivery Rate 03/31 1407 98.2 74 18 153/90 96 Room Air 03/31 0912 57 126/66 03/31 0635 97.2 57 18 124/66 95 Room Air 03/30 2100 98.0 94 18 137/86 98 Room Air 03/30 2042 105 137/86 Intake & Output 03/31 1600 03/31 0800 03/31 0000 Intake Total 770 340 200 Output Total 250 Balance 770 90 200 Intake, IV 150 100 Intake, Oral 620 240 200 Number 1 Bowel Movements Output, Urine 250 Patient 181 lb 115 lb Weight Physical Exam General Appearance: Alert, Cooperative, No Acute Distress Skin: No Rashes Skin Temp/Moisture Exam: Warm/Dry Sepsis Skin Exam (color): Normal for Ethnicity HEENT: Atraumatic, EOMI, Mucous Membr. moist/pink Cardiovascular: Regular Rate, Normal S1, Normal S2 Lungs: Clear to Auscultation, Normal Air Movement Abdomen: Normal Bowel Sounds, Soft, No Tenderness Neurological: Normal Speech Extremities: No Clubbing, No Cyanosis, continued pain and mild swelling left arm Vascular: Normal Pulses, Pulses Symmetrical Current Medications: Current Medications Sig/Louise Start time Last Medication Dose Route Stop Time Status Admin Acetaminophen 1,000 MG Q6P PRN 03/11 1415 AC 03/28 N/A 1 UNIT IV 2030 Apixaban 5 MG BID 03/22 0900 AC 03/31 PO 0911 Atorvastatin Calcium 40 MG 1700 03/01 1700 AC 03/30 PO 1747 Ceftriaxone Sodium 1,000 MG 1400 03/29 1400 AC 03/30 IV 1447 Clopidogrel Bisulfate 75 MG DAILY 03/14 0900 AC 03/31 PO 0912 Divalproex Sodium 1,000 MG BID 03/20 1039 AC 03/31 PO 0910 Docusate Sodium 100 MG DAILY NEEDED 03/02 0930 AC 03/02 PO 1057 Gabapentin 300 MG Q8P PRN 03/20 1715 AC 03/23 PO 202 Lorazepam 0.5 MG Q6 PRN 03/26 1330 DC 03/29 PO 04/02 1329 1951 Magnesium Chloride 64 MG BID 03/24 2100 AC 03/31 PO 0912 Melatonin 5 MG AT BEDTIME 03/27 2100 AC 03/30 PO 204 Metoprolol Tartrate 50 MG BID 03/20 2100 AC 03/31 PO 0912 Multivitamins 1 TAB DAILY 03/29 1043 AC 03/31 PO 0912 Polyethylene Glycol 17 GM DAILY PRN 03/02 0930 AC 03/03 PO 0839 Quetiapine Fumarate 12.5 MG QPM 03/31 2100 AC PO Quetiapine Fumarate 25 MG BID 03/30 2100 DC 03/31 PO 0912 Senna 187 MG AT BEDTIME 03/22 2100 AC 03/30 PO 2042 Thiamine HCl 500 MG 0800 03/30 0915 AC 03/31 Sodium Chloride 250 ML IV 04/03 0859 0926 Vitamin A/Vitamin D 1 YOKO BID 03/12 1515 AC 03/31 TOP 0913 Last 24 Hrs of Lab/Kody Results Last 24 Hrs of Labs/Mics: Laboratory Tests 03/31/18 0550: Anion Gap 8, Estimated GFR > 60, BUN/Creatinine Ratio 25.0, Magnesium 1.9 Assessment/Plan Assessment: 67 y/o M with PMH of chronic seizure disorder on valproate, CAD s/p CABG and bovine aortic valve replacement in 2013, Hodgkins lymphoma, HTN and HLD that was brought to the ED after he was found to be unresponsive. Patient has been in the hospital for the past 1 month initially admitted in the ICU and required intubation. Yesterday, the patient required 2 doses of 0.5 mg Ativan for agitation. He was also febrile to 100.3 and his WBC has increased to 14,800 from 12,800. Today the patient's temperature has dropped to 100. He continues to be quite confused. He was found to have gram-negative rods growing in his urine with evidence of UTI on urinalysis. The patient has had one bout of high blood pressure but now is normotensive. Assessment and plan Encephalopathy Patient remains very confused he has history of substance abuse significantly alcohol and cocaine. Today is confused on interview, has waxing and waning confusion. This patient who is chronic alcoholic may have developed Wernicke Korsakoff syndrome. However this is less likely given patient's chronic alcohol use and the acute nature of the patient's confusion that began with his admission here after his seizure. His seizures/head trauma could be the cause of his confusion. Continue to follow psychiatric consult and plans for subsequent care post discharge. For patient's seizure he is currently on valproic acid 1 g twice a day and CORI, was seen by neurology while he was in the ICU. Psychiatry spoke with patient's friend who states that he is "cognitively normal " at baseline, with good memory and orientation. Friend states that patient is always "a bit of a bully and easily aggravated" at baseline. I personally spoke with patient's who stated that after the patient started to have seizures in 2014, he became a different person, more aggressive with one violent episode noted towards his . It appears that some of his behaviors are characterologic at baseline, however he does not appear to be at his cognitive baseline i.e. on and off confused per collateral. Ativan has been ordered for him we stopped this as he has continued to be confused and rechecked an EKG and QTC was normal, so we started Seroquel 12.5 mg every night. We will recheck an EKG on Monday to determine if we should continue this Seroquel. We also have gabapentin 300 mg 3 times a day offered. Patient is less agitated and has not been trying to get out of bed so we have DC'd the sitter. We have continued to decrease polypharmacy as much as possible. B12 level is normal. We have ordered physical therapy to return to mobilize the patient as his inactivity may be contributing to his overall confusion/lethargy. We have placed the patient on high dose thiamine for 5 days, currently on day 2. He has a long history of alcohol abuse and has not been tried on this during his admission. Patient is pending placement in [facility] and will be seen by [place] to assess appropriateness for that facility. Leukocytosis with fever Patient was found to have evidence of UTI UA and his urine is growing Serratia. We started the patient on ceftriaxone which it is sensitive to but had transitioned the patient to Bactrim DS 1 tab daily. Antibiotics were started on March 28. Currently the patient is afebrile. Ischemic right foot Status post stent placement. Ischemia has resolved. 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 We will refer to vascular. Hypertension Normotensive today. He is being continued on metoprolol 50 mg twice daily for his paroxysmal A. fib with SVT which is also helping with his blood pressure. If the patient does have elevated blood pressure, we can give him Norvasc low- dose. A. fib and coronary artery disease status post CABG Patient on Eliquis 5 mg, clopidogrel 75 mg and atorvastatin 40 mg daily. Will continue with medication with heart healthy diet. Hypomagnesemia Patient was previously found to be hypomagnesemic. Resolved. Arm pain secondary to displaced humerus fracture after fall/seizure Patient currently notes continued pain, is on ofirmev prn. Orthopedist saw the patient in the ICU and states that given his medical condition and mental status as well as stability of the fracture over the past 12 days, he recommends continued conservative nonoperative management with continued splinting. He recommended no use of the left elbow for pushing or pulling or lifting. He recommended repeat x-rays of the left elbow in his splint again to check fracture reduction and potential healing activity. This was done on March 15 and showed no significant interval change to the transcondylar fracture with continued minimal anterior and medial displacement. I spoke with Dr. Hightower's office and they suggested that we refer him for follow-up but no extra treatment for now. Patient has had occupational therapy see him in-house. Monocytosis Patient was found to have increased monocytes that dates as far back to 2012. The patient does have a history of Hodgkin's lymphoma, states that he has had non-Hodgkin's lymphoma treated in March of 1999. Patient sees Dr. 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 WBC level normal. This appears to be a chronic issue so we will refer him to follow up on this outpatient. Patient is DNR/DNI Heart healthy diet DVT prophylaxis with Eliquis and Alps Problem List: 1. Metabolic encephalopathy Pain Ratin Pain Location: left arm Pain Goal: Pain 4 or less Pain Plan: as needed Tomorrow's Labs & Rationales: no labs
[2018-03-31 14:07] VITALS: BP 153/90
[2018-04-01 06:46] VITALS: BP 140/104
--- NOTE | 2018-04-01 08:37 | PN- Housestaff ---
See Addendum Subjective Follow-up For: Altered mental status Urinary tract infection Subjective: Patient was seen and examined today. Patient was resting comfortably in bed. Patient was upset because he was unable to sleep overnight. States that he has trouble voiding and is having abdominal discomfort. Patient denies any fever, chills, nausea/vomiting, diarrhea/constipation. Denies chest pain or shortness of breath. Patient today remains confused and is alert and oriented x1. He did forget that I had seen him in the morning. Patient's bladder was scanned which showed 320 cc of urine and he was straight cathed. No acute events overnight. Review of Systems Constitutional: Reports: see HPI. Objective Last 24 Hrs of Vital Signs/I&O Vital Signs Date Time Temp Pulse Resp B/P B/P Pulse O2 O2 Flow FiO2 Mean Ox Delivery Rate 04/01 1458 98.0 69 20 111/72 95 Room Air 04/01 0904 74 140/104 04/01 0646 98.3 74 18 140/104 97 Room Air 03/31 2147 97.5 64 18 97 Room Air 03/31 2125 82 154/94 Intake & Output 04/01 1600 04/01 0800 04/01 0000 Intake Total 770 Output Total 320 300 Balance 450 -300 Intake, IV 150 Intake, Oral 620 Number 0 Bowel Movements Output, Urine 320 300 Patient 182 lb Weight Physical Exam General Appearance: Alert, Cooperative, No Acute Distress Skin Temp/Moisture Exam: Warm/Dry HEENT: Atraumatic, Mucous Membr. moist/pink Cardiovascular: Regular Rate, Normal S1, Normal S2 Lungs: Clear to Auscultation, Normal Air Movement Abdomen: Normal Bowel Sounds, Soft, mild suprapubic tenderness Neurological: Normal Speech, Cranial Nerves 3-12 NL Current Medications: Current Medications Sig/Louise Start time Last Medication Dose Route Stop Time Status Admin Acetaminophen 1,000 MG Q6P PRN 03/11 1415 AC 03/28 N/A 1 UNIT IV 2030 Apixaban 5 MG BID 03/22 0900 AC 04/01 PO 0904 Atorvastatin Calcium 40 MG 1700 03/01 1700 AC 03/31 PO 1640 Ceftriaxone Sodium 1,000 MG 1400 03/29 1400 DC 03/31 IV 03/31 2200 1400 Clopidogrel Bisulfate 75 MG DAILY 03/14 09 AC 04/01 PO 0905 Divalproex Sodium 1,000 MG BID 03/20 1039 AC 04/01 PO 0902 Docusate Sodium 100 MG DAILY NEEDED 03/02 0930 AC 03/02 PO 1057 Gabapentin 300 MG Q8P PRN 03/20 1715 AC 03/23 PO 202 Magnesium Chloride 64 MG BID 03/24 2100 AC 04/01 PO 0905 Melatonin 5 MG AT BEDTIME 03/27 2100 AC 03/31 PO 2127 Metoprolol Tartrate 50 MG BID 03/20 2100 AC 04/01 PO 0904 Multivitamins 1 TAB DAILY 03/29 1043 AC 04/01 PO 0905 Polyethylene Glycol 17 GM DAILY PRN 03/02 0930 AC 03/03 PO 0839 Quetiapine Fumarate 12.5 MG QPM 03/31 2100 AC 03/31 PO 2128 Senna 187 MG AT BEDTIME 03/22 2100 AC 03/31 PO 212 Thiamine HCl 500 MG 03/30 0915 AC 04/01 Sodium Chloride 250 ML IV 04/03 08 0830 Trimethoprim/ 1 TAB BID 04/01 0900 AC 04/01 Sulfamethoxazole PO 09 Vitamin A/Vitamin D 1 YOKO BID 03/12 1515 AC 04/01 TOP 0905 Assessment/Plan Assessment: 67 y/o M with PMH of chronic seizure disorder on valproate, CAD s/p CABG and bovine aortic valve replacement in 2013, Hodgkins lymphoma, HTN and HLD that was brought to the ED after he was found to be unresponsive. Patient has been in the hospital for the past 1 month initially admitted in the ICU and required intubation. Yesterday, the patient required 2 doses of 0.5 mg Ativan for agitation. He was also febrile to 100.3 and his WBC has increased to 14,800 from 12,800. Today the patient's temperature has dropped to 100. He continues to be quite confused. He was found to have gram-negative rods growing in his urine with evidence of UTI on urinalysis. The patient has had one bout of high blood pressure but now is normotensive. Assessment and plan Encephalopathy Patient remains very confused he has history of substance abuse significantly alcohol and cocaine. Today is confused on interview, has waxing and waning confusion. This patient who is chronic alcoholic may have developed Wernicke Korsakoff syndrome. However this is less likely given patient's chronic alcohol use and the acute nature of the patient's confusion that began with his admission here after his seizure. His seizures/head trauma could be the cause of his confusion. Continue to follow psychiatric consult and plans for subsequent care post discharge. For patient's seizure he is currently on valproic acid 1 g twice a day and CORI, was seen by neurology while he was in the ICU. Psychiatry spoke with patient's friend who states that he is "cognitively normal " at baseline, with good memory and orientation. Friend states that patient is always "a bit of a bully and easily aggravated" at baseline. I personally spoke with patient's who stated that after the patient started to have seizures in 2014, he became a different person, more aggressive with one violent episode noted towards his . It appears that some of his behaviors are characterologic at baseline, however he does not appear to be at his cognitive baseline i.e. on and off confused per collateral. Ativan has been ordered for him we stopped this as he has continued to be confused and rechecked an EKG and QTC was normal, so we started Seroquel 12.5 mg every night. We will recheck an EKG on Monday to determine if we should continue this Seroquel. We also have gabapentin 300 mg 3 times a day offered. Patient is less agitated and has not been trying to get out of bed so we have DC'd the sitter. We have continued to decrease polypharmacy as much as possible. B12 level is normal. We have ordered physical therapy to return to mobilize the patient as his inactivity may be contributing to his overall confusion/lethargy. We have placed the patient on high dose thiamine for 5 days, currently on day 2. He has a long history of alcohol abuse and has not been tried on this during his admission. Patient is pending placement in [facility] and will be seen by [place] to assess appropriateness for that facility. Leukocytosis with fever Patient was found to have evidence of UTI UA and his urine is growing Serratia. We started the patient on ceftriaxone which it is sensitive to but had transitioned the patient to Bactrim DS 1 tab daily. Antibiotics were started on March 28. Currently the patient is afebrile. Ischemic right foot Status post stent placement. Ischemia has resolved. 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 We will refer to vascular. Hypertension Normotensive today. He is being continued on metoprolol 50 mg twice daily for his paroxysmal A. fib with SVT which is also helping with his blood pressure. If the patient does have elevated blood pressure, we can give him Norvasc low- dose. A. fib and coronary artery disease status post CABG Patient on Eliquis 5 mg, clopidogrel 75 mg and atorvastatin 40 mg daily. Will continue with medication with heart healthy diet. Hypomagnesemia Patient was previously found to be hypomagnesemic. Resolved. Arm pain secondary to displaced humerus fracture after fall/seizure Patient currently notes continued pain, is on ofirmev prn. Orthopedist saw the patient in the ICU and states that given his medical condition and mental status as well as stability of the fracture over the past 12 days, he recommends continued conservative nonoperative management with continued splinting. He recommended no use of the left elbow for pushing or pulling or lifting. He recommended repeat x-rays of the left elbow in his splint again to check fracture reduction and potential healing activity. This was done on March 15 and showed no significant interval change to the transcondylar fracture with continued minimal anterior and medial displacement. I spoke with Dr. Hightower's office and they suggested that we refer him for follow-up but no extra treatment for now. Patient has had occupational therapy see him in-house. Monocytosis Patient was found to have increased monocytes that dates as far back to 2012. The patient does have a history of Hodgkin's lymphoma, states that he has had non-Hodgkin's lymphoma treated in March of 1999. Patient sees Dr. 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 WBC level normal. This appears to be a chronic issue so we will refer him to follow up on this outpatient. Urinary retention most likely secondary to BPH - On straight cath protocol - Patient was started on doxazosin at night which should also help with his hypertension Patient is DNR/DNI Heart healthy diet DVT prophylaxis with Eliquis and Alps Problem List: 1. Metabolic encephalopathy 2. Urinary retention Pain Ratin Pain Location: abdomen Pain Goal: Pain 4 or less Pain Plan: tylenol PRN Tomorrow's Labs & Rationales: bep
[2018-04-01 14:58] VITALS: BP 111/72
[2018-04-01 21:35] VITALS: BP 110/78
[2018-04-02 06:00] VITALS: BP 105/71
--- NOTE | 2018-04-02 07:42 | PN- Housestaff ---
Jade Reinoso MD 04/02/18 0742: Subjective Follow-up For: confusion placement urinary retention Subjective: Patient states that he had "the best night yet" and slept well. He has no pain in his arm and is moving it well, no edema. He is AOx3 and less irritable although continues to be somewhat confrontational. Vitals are stable. Was started on doxazosin overnight for urinary retention with the added effect of decreasing his BP which was high yesterday 154/104. Review of Systems Constitutional: Reports: no symptoms. EENTM: Reports: no symptoms. Cardiovascular: Reports: no symptoms. Respiratory: Reports: no symptoms. Gastrointestinal: Reports: no symptoms. Genitourinary: Reports: no symptoms. Musculoskeletal: Reports: no symptoms. Skin: Reports: no symptoms. Neurological/Psychological: Reports: no symptoms. Objective Last 24 Hrs of Vital Signs/I&O Vital Signs Date Time Temp Pulse Resp B/P B/P Pulse O2 O2 Flow FiO2 Mean Ox Delivery Rate 04/02 0825 73 105/71 04/02 0600 97.7 73 18 105/71 98 Room Air 04/01 2151 70 110/78 04/01 2135 98.4 70 20 110/78 96 Room Air 04/01 1458 98.0 69 20 111/72 95 Room Air Intake & Output 04/02 1600 04/02 0800 04/02 0000 Intake Total 1040 510 Output Total 1000 1050 Balance 40 -540 Intake, IV 80 30 Intake, Oral 960 480 Number 0 2 Bowel Movements Output, Urine 1000 1050 Patient 174 lb Weight Weight Bed scale Measurement Method Physical Exam General Appearance: Alert, Oriented X3, Cooperative, No Acute Distress Skin: No Rashes, No Breakdown Skin Temp/Moisture Exam: Warm/Dry HEENT: Atraumatic, EOMI, Mucous Membr. moist/pink Cardiovascular: Regular Rate, Normal S1, Normal S2, No Murmurs Lungs: Clear to Auscultation, Normal Air Movement Abdomen: Normal Bowel Sounds, Soft, No Tenderness Neurological: Normal Speech, Strength at 5/5 X4 Ext, Sensation Intact Extremities: No Clubbing, No Cyanosis, No Edema Current Medications: Current Medications Sig/Louise Start time Last Medication Dose Route Stop Time Status Admin Acetaminophen 0 .STK-MED ONE 04/01 1805 DC IV Acetaminophen 1,000 MG Q6P PRN 03/11 1415 AC 04/01 N/A 1 UNIT IV 1806 Apixaban 5 MG BID 03/22 0900 AC 04/02 PO 0809 Atorvastatin Calcium 40 MG 1700 03/01 1700 AC 04/01 PO 1700 Clopidogrel Bisulfate 75 MG DAILY 03/14 0900 AC 04/02 PO 0809 Divalproex Sodium 1,000 MG BID 03/20 1039 AC 04/02 PO 0811 Docusate Sodium 100 MG DAILY NEEDED 03/02 0930 AC 03/02 PO 1057 Doxazosin Mesylate 1 MG AT BEDTIME 04/01 2100 AC 04/01 PO 2109 Gabapentin 300 MG Q8P PRN 03/20 1715 AC 03/23 PO 2024 Magnesium Chloride 64 MG BID 03/24 2100 AC 04/02 PO 0810 Melatonin 5 MG AT BEDTIME 03/27 2100 AC 04/01 PO 2109 Metoprolol Tartrate 50 MG BID 03/20 2100 AC 04/02 PO 0825 Multivitamins 1 TAB DAILY 03/29 1043 AC 04/02 PO 0809 Patient Medication 1 ED ONE ONE 04/02 09 VT 04/02 Teaching ED 04/02 0901 1139 Polyethylene Glycol 17 GM DAILY PRN 03/02 0930 AC 03/03 PO 0839 Quetiapine Fumarate 12.5 MG QPM 03/31 2100 AC 04/01 PO 2109 Senna 187 MG AT BEDTIME 03/22 2100 AC 04/01 PO 2109 Thiamine HCl 500 MG 0803/30 0915 AC 04/02 Sodium Chloride 250 ML IV 04/03 0859 1000 Trimethoprim/ 1 TAB BID 04/01 0900 AC 04/02 Sulfamethoxazole PO 0810 Vitamin A/Vitamin D 1 YOKO BID 03/12 1515 AC 04/02 TOP 0812 Last 24 Hrs of Lab/Kody Results Last 24 Hrs of Labs/Mics: Laboratory Tests 04/02/18 0415: Anion Gap 7, Estimated GFR > 60, BUN/Creatinine Ratio 18.3 04/01/18 1819: Anion Gap 9, Estimated GFR > 60, BUN/Creatinine Ratio 18.3 Assessment/Plan Assessment: 67 y/o M with PMH of chronic seizure disorder on valproate, CAD s/p CABG and bovine aortic valve replacement in 2013, Hodgkins lymphoma, HTN and HLD that was brought to the ED after he was found to be unresponsive. Patient has been in the hospital for the past 1 month initially admitted in the ICU and required intubation. Yesterday, the patient required 2 doses of 0.5 mg Ativan for agitation. He was also febrile to 100.3 and his WBC has increased to 14,800 from 12,800. Today the patient's temperature has dropped to 100. He continues to be quite confused. He was found to have gram-negative rods growing in his urine with evidence of UTI on urinalysis. The patient has had one bout of high blood pressure but now is normotensive. Assessment and plan Encephalopathy Patient remains very confused he has history of substance abuse significantly alcohol and cocaine. Today is confused on interview, has waxing and waning confusion. This patient who is chronic alcoholic may have developed Wernicke Korsakoff syndrome. However this is less likely given patient's chronic alcohol use and the acute nature of the patient's confusion that began with his admission here after his seizure. His seizures/head trauma could be the cause of his confusion. Continue to follow psychiatric consult and plans for subsequent care post discharge. For patient's seizure he is currently on valproic acid 1 g twice a day and CORI, was seen by neurology while he was in the ICU. Psychiatry spoke with patient's friend who states that he is "cognitively normal " at baseline, with good memory and orientation. Friend states that patient is always "a bit of a bully and easily aggravated" at baseline. I personally spoke with patient's who stated that after the patient started to have seizures in 2014, he became a different person, more aggressive with one violent episode noted towards his . It appears that some of his behaviors are characterologic at baseline, however he does not appear to be at his cognitive baseline i.e. on and off confused per collateral. Ativan has been ordered for him we stopped this as he has continued to be confused and rechecked an EKG and QTC was normal, so we started Seroquel 12.5 mg every night. We also have gabapentin 300 mg 3 times a day offered. Patient is less agitated and has not been trying to get out of bed so we have DC'd the sitter. We have continued to decrease polypharmacy as much as possible. B12 level is normal. We have ordered physical therapy to return to mobilize the patient as his inactivity may be contributing to his overall confusion/lethargy. We placed the patient on high dose thiamine for 5 days. Patient is pending placement in [facility] and will be seen by [facility] to assess appropriateness for that facility. Leukocytosis with fever Patient was found to have evidence of UTI UA and his urine is growing Serratia. We started the patient on ceftriaxone which it is sensitive to but had transitioned the patient to Bactrim DS 1 tab daily. Antibiotics were started on March 28. Currently the patient is afebrile and has received suitable treatment. Ischemic right foot Status post stent placement. Ischemia has resolved. 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 We will refer to vascular. Hypertension Normotensive today. He is being continued on metoprolol 50 mg twice daily for his paroxysmal A. fib with SVT which is also helping with his blood pressure. Continue prazosin for urinary retention with added effect of blood pressure control and add norvasc if not controlled. A. fib and coronary artery disease status post CABG Patient on Eliquis 5 mg, clopidogrel 75 mg and atorvastatin 40 mg daily. Will continue with medication with heart healthy diet. Hypomagnesemia Patient was previously found to be hypomagnesemic. Resolved. Arm pain secondary to displaced humerus fracture after fall/seizure Patient currently notes continued pain, is on ofirmev prn. Orthopedist saw the patient in the ICU and states that given his medical condition and mental status as well as stability of the fracture over the past 12 days, he recommends continued conservative nonoperative management with continued splinting. He recommended no use of the left elbow for pushing or pulling or lifting. He recommended repeat x-rays of the left elbow in his splint again to check fracture reduction and potential healing activity. This was done on March 15 and showed no significant interval change to the transcondylar fracture with continued minimal anterior and medial displacement. I spoke with Dr. Hightower's office previously and they suggested that we refer him for follow-up but no extra treatment for now. However, I have placed another call with him so that may ascertain how much weight patient may apply to the arm which ambulating with his walker. Patient has had occupational therapy see him in-house and after recommendations from ortho, I will renew order for OT. Monocytosis Patient was found to have increased monocytes that dates as far back to 2012. The patient does have a history of Hodgkin's lymphoma, states that he has had non-Hodgkin's lymphoma treated in March of 1999. Patient sees Dr. 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 WBC level normal. This appears to be a chronic issue so we will refer him to follow up on this outpatient. Urinary retention most likely secondary to BPH On straight cath protocol. Patient was started on doxazosin at night which should also help with his hypertension. Patient is DNR/DNI Heart healthy diet DVT prophylaxis with Eliquis and Alps Problem List: 1. Urinary retention 2. Metabolic encephalopathy Pain Ratin Pain Location: na Pain Goal: Remain pain free Pain Plan: na Tomorrow's Labs & Rationales: none Martín Devine 04/02/18 1124: Attending MD Review Statement Attending Statement Attending MD Statement: examined this patient, discuss w/resident/PA/PARTS IDENTIFICATION TECHNICIAN, agreed w/resident/PA/PARTS IDENTIFICATION TECHNICIAN, reviewed EMR data (avail), discussed with nursing, discussed with case mgmt Attending Assessment/Plan: Pt will be evaluated by [facility] for acute rehab placement. Will talk with ortho about weight bearing status for left arm . pts mental status is much better and is back to baseline.
[2018-04-02 15:39] VITALS: BP 148/68
[2018-04-02 20:06] VITALS: BP 118/62
[2018-04-03 07:22] VITALS: BP 111/80
--- NOTE | 2018-04-03 08:05 | PN- Housestaff ---
Kemar ANDERSON,Jade 04/03/18 0805: Subjective Follow-up For: ams left humerus nondisplaced fracture Subjective: Patient is irritable this morning. His vitals are stable. He has no complaints of pain except complains that his left arm is wrapped too tight. Edema of the hand is noted that has increased since yesterday. Patient is AOx3. He has been ambulating with PT. Review of Systems Constitutional: Reports: no symptoms. EENTM: Reports: no symptoms. Cardiovascular: Reports: no symptoms. Respiratory: Reports: no symptoms. Gastrointestinal: Reports: no symptoms. Genitourinary: Reports: no symptoms. Musculoskeletal: Reports: joint pain. Objective Last 24 Hrs of Vital Signs/I&O Vital Signs Date Time Temp Pulse Resp B/P B/P Pulse O2 O2 Flow FiO2 Mean Ox Delivery Rate 04/03 1525 97.6 72 18 120/70 96 Room Air 04/03 0939 85 111/80 04/03 0722 97.5 85 18 111/80 98 04/024 82 118/62 04/02 2006 98.4 82 18 118/62 98 Room Air Intake & Output 04/03 1600 04/03 0800 04/03 0000 Intake Total 890 360 360 Output Total 400 550 175 Balance 490 -190 185 Intake, IV 50 Intake, Oral 840 360 360 Output, Urine 400 550 175 Physical Exam General Appearance: Alert, Oriented X3, Cooperative, No Acute Distress Skin Temp/Moisture Exam: Warm/Dry Cardiovascular: Regular Rate, Normal S1, Normal S2, No Murmurs Lungs: Clear to Auscultation, Normal Air Movement Abdomen: Normal Bowel Sounds, Soft, No Tenderness Neurological: Normal Speech Extremities: No Clubbing, No Cyanosis, No Edema, Normal Pulses Vascular: Normal Pulses, Pulses Symmetrical Current Medications: Current Medications Sig/Louise Start time Last Medication Dose Route Stop Time Status Admin Acetaminophen 1,000 MG Q6P PRN 03/11 1415 AC 04/01 N/A 1 UNIT IV 1806 Apixaban 5 MG BID 03/22 900 AC 04/03 PO 0939 Atorvastatin Calcium 40 MG 1700 03/01 1700 AC 04/03 PO 1618 Clopidogrel Bisulfate 75 MG DAILY 03/14 900 AC 04/03 PO 0939 Divalproex Sodium 1,000 MG BID 03/20 1039 AC 04/03 PO 0939 Docusate Sodium 100 MG DAILY NEEDED 03/02 0930 AC 03/02 PO 1057 Doxazosin Mesylate 1 MG AT BEDTIME 04/01 2100 AC 04/02 PO 2052 Famotidine 20 MG ONCE ONE 04/02 2015 DC 04/02 PO 04/02 Gabapentin 300 MG Q8P PRN 03/20 1715 AC 03/23 PO 2023 Magnesium Chloride 64 MG BID 03/24 2100 AC 04/03 PO 0939 Melatonin 5 MG ONCE ONE 04/03 0100 DC 04/03 PO 04/03 010 0106 Melatonin 5 MG AT BEDTIME 03/27 2100 AC 04/02 PO 2053 Metoprolol Tartrate 50 MG BID 03/20 2100 AC 04/03 PO 0939 Multivitamins 1 TAB DAILY 03/29 1043 AC 04/03 PO 0939 Polyethylene Glycol 17 GM DAILY PRN 03/02 0930 AC 03/03 PO 0839 Quetiapine Fumarate 12.5 MG QPM 03/31 2100 AC 04/02 PO 2054 Senna 187 MG AT BEDTIME 03/22 2100 AC 04/02 PO 2053 Thiamine HCl 500 MG 0800 03/30 0915 DC 04/03 Sodium Chloride 250 ML IV 04/03 08 0938 Trimethoprim/ 1 TAB BID 04/01 09 AC 04/03 Sulfamethoxazole PO 0939 Vitamin A/Vitamin D 1 YOKO BID 03/12 1515 AC 04/03 TOP 0939 Assessment/Plan Assessment: 67 y/o M with PMH of chronic seizure disorder on valproate, CAD s/p CABG and bovine aortic valve replacement in 2013, Hodgkins lymphoma, HTN and HLD that was brought to the ED after he was found to be unresponsive. Patient has been in the hospital for the past 1 month initially admitted in the ICU and required intubation. Yesterday, the patient required 2 doses of 0.5 mg Ativan for agitation. He was also febrile to 100.3 and his WBC has increased to 14,800 from 12,800. Today the patient's temperature has dropped to 100. He continues to be quite confused. He was found to have gram-negative rods growing in his urine with evidence of UTI on urinalysis. The patient has had one bout of high blood pressure but now is normotensive. Assessment and plan Encephalopathy Patient remains very confused he has history of substance abuse significantly alcohol and cocaine. Today is confused on interview, has waxing and waning confusion. This patient who is chronic alcoholic may have developed Wernicke Korsakoff syndrome. However this is less likely given patient's chronic alcohol use and the acute nature of the patient's confusion that began with his admission here after his seizure. His seizures/head trauma could be the cause of his confusion. Continue to follow psychiatric consult and plans for subsequent care post discharge. For patient's seizure he is currently on valproic acid 1 g twice a day and CORI, was seen by neurology while he was in the ICU. Psychiatry spoke with patient's friend who states that he is "cognitively normal " at baseline, with good memory and orientation. Friend states that patient is always "a bit of a bully and easily aggravated" at baseline. I personally spoke with patient's who stated that after the patient started to have seizures in 2014, he became a different person, more aggressive with one violent episode noted towards his . It appears that some of his behaviors are characterologic at baseline, however he does not appear to be at his cognitive baseline i.e. on and off confused per collateral. Ativan has been ordered for him we stopped this as he has continued to be confused and rechecked an EKG and QTC was normal, so we started Seroquel 12.5 mg every night. We also have gabapentin 300 mg 3 times a day offered. Patient is less agitated and has not been trying to get out of bed so we have DC'd the sitter. We have continued to decrease polypharmacy as much as possible. B12 level is normal. We placed the patient on high dose thiamine for 5 days. Patient is pending placement in [facility] and will go to [facility] tomorrow. Leukocytosis with fever Patient was found to have evidence of UTI UA and his urine is growing Serratia. We started the patient on ceftriaxone which it is sensitive to but had transitioned the patient to Bactrim DS 1 tab daily. Antibiotics were started on March 28. Currently the patient is afebrile and has received suitable treatment. Ischemic right foot Status post stent placement. Ischemia has resolved. 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 We will refer to vascular. Hypertension Normotensive today. He is being continued on metoprolol 50 mg twice daily for his paroxysmal A. fib with SVT which is also helping with his blood pressure. Continue prazosin for urinary retention with added effect of blood pressure control and add norvasc if not controlled. A. fib and coronary artery disease status post CABG Patient on Eliquis 5 mg, clopidogrel 75 mg and atorvastatin 40 mg daily. Will continue with medication with heart healthy diet. Hypomagnesemia Patient was previously found to be hypomagnesemic. Resolved. Arm pain secondary to displaced humerus fracture after fall/seizure Patient currently notes continued pain, is on ofirmev prn. Orthopedist saw the patient in the ICU and states that given his medical condition and mental status as well as stability of the fracture over the past 12 days, he recommends continued conservative nonoperative management with continued splinting. He recommended no use of the left elbow for pushing or pulling or lifting. He recommended repeat x-rays of the left elbow in his splint again to check fracture reduction and potential healing activity. This was done on March 15 and showed no significant interval change to the transcondylar fracture with continued minimal anterior and medial displacement. I spoke with Dr. Hightower's office previously and they suggested that we refer him for follow-up but no extra treatment for now. I spoke with Dr. Anuj Silver regarding the patient's weight bearing tolerance on that left arm and he stated that he should weight- bear as tolerated, limited to a nonpainful level. We should continue to wrap the arm to maintain the splint. These instructions will be given to the [facility] on discharge. We will refer patient for follow-up with Dr. Hightower. Monocytosis Patient was found to have increased monocytes that dates as far back to 2012. The patient does have a history of Hodgkin's lymphoma, states that he has had non-Hodgkin's lymphoma treated in March of 1999. Patient sees Dr. 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 WBC level normal. This appears to be a chronic issue so we will refer him to follow up on this outpatient. Urinary retention most likely secondary to BPH On straight cath protocol. Patient was started on doxazosin which should also help with his hypertension. Patient is DNR/DNI Heart healthy diet DVT prophylaxis with Eliquis and Alps Problem List: 1. Metabolic encephalopathy Pain Ratin Pain Location: none Pain Goal: Remain pain free Pain Plan: prn Tomorrow's Labs & Rationales: none Martín Devine 04/03/18 1129: Attending MD Review Statement Attending Statement Attending MD Statement: examined this patient, discuss w/resident/PA/CATHODE WASHER, agreed w/resident/PA/CATHODE WASHER, reviewed EMR data (avail), discussed with nursing, discussed with case mgmt Attending Assessment/Plan: Pt complaining this am about his left arm bandage being too tight- re wrapped his arm and he is feeling better. [facility] to evaluate the pt today for acute rehab. Pt awaiting placement. Mental status cleared now . Alert and oriented fully. d/w pt the care plan .
[2018-04-03 15:25] VITALS: BP 120/70
[2018-04-03 21:16] VITALS: BP 140/80
[2018-04-04 06:29] VITALS: BP 129/96
--- NOTE | 2018-04-04 08:01 | PN- Housestaff ---
Kemar ANDERSON,Jade 04/04/18 0801: Subjective Follow-up For: placement str Subjective: Patient seen and examined. He has no complaints except for continued mild left elbow pain. Patient is irritable and unhappy with house staff. Vitals are stable overnight. Review of Systems Constitutional: Reports: no symptoms. Objective Last 24 Hrs of Vital Signs/I&O Vital Signs Date Time Temp Pulse Resp B/P B/P Pulse O2 O2 Flow FiO2 Mean Ox Delivery Rate 04/04 1406 97.9 66 20 144/72 98 Room Air 04/04 1051 Room Air 04/04 0807 75 129/96 04/04 0629 98.3 75 20 129/96 98 Room Air 04/03 2116 97.7 79 18 140/80 95 Room Air 04/03 2040 140/80 Intake & Output 04/04 1600 04/04 0800 04/04 0000 Intake Total 750 480 Output Total 700 600 Balance 50 -600 480 Intake, IV 30 Intake, Oral 720 480 Output, Urine 700 600 Physical Exam General Appearance: Alert, Oriented X3, Cooperative, No Acute Distress HEENT: Atraumatic, EOMI, Mucous Membr. moist/pink Cardiovascular: Regular Rate, Normal S1, Normal S2 Lungs: Clear to Auscultation, Normal Air Movement Abdomen: Normal Bowel Sounds, No Tenderness Neurological: Normal Speech Current Medications: Current Medications Sig/Louise Start time Last Medication Dose Route Stop Time Status Admin Acetaminophen 1,000 MG Q6P PRN 03/11 1415 AC 04/01 N/A 1 UNIT IV 1806 Apixaban 5 MG BID 03/22 09 AC 04/04 PO 0807 Atorvastatin Calcium 40 MG 1700 03/01 1700 AC 04/04 PO 1620 Clopidogrel Bisulfate 75 MG DAILY 03/14 09 AC 04/04 PO 0807 Divalproex Sodium 1,000 MG BID 03/20 1039 AC 04/04 PO 0807 Docusate Sodium 0 .STK-MED ONE 04/04 1648 DC PO Docusate Sodium 100 MG DAILY NEEDED 03/02 930 AC 03/02 PO 105 Doxazosin Mesylate 1 MG AT BEDTIME 04/01 2100 AC 04/03 PO 203 Gabapentin 300 MG Q8P PRN 03/20 1715 AC 03/23 PO 202 Magnesium Chloride 64 MG BID 03/24 2100 AC 08/22 PO 08 Melatonin 5 MG AT BEDTIME 03/27 2100 AC 04/03 PO 2038 Metoprolol Tartrate 50 MG BID 03/20 2100 AC 04/04 PO 08 Multivitamins 1 TAB DAILY 03/29 1043 AC 04/04 PO 08 Polyethylene Glycol 17 GM DAILY PRN 03/02 0930 AC 03/03 PO 0839 Quetiapine Fumarate 12.5 MG QPM 03/31 2100 AC 04/03 PO 2040 Senna 187 MG AT BEDTIME 03/22 2100 AC 04/03 PO 2038 Trimethoprim/ 1 TAB BID 04/01 0900 DC 04/04 Sulfamethoxazole PO 08 Vitamin A/Vitamin D 1 YOKO BID 03/12 1515 AC 04/04 TOP 0808 Assessment/Plan Assessment: 67 y/o M with PMH of chronic seizure disorder on valproate, CAD s/p CABG and bovine aortic valve replacement in 2013, Hodgkins lymphoma, HTN and HLD that was brought to the ED after he was found to be unresponsive. Patient has been in the hospital for the past 1 month initially admitted in the ICU and required intubation. Yesterday, the patient required 2 doses of 0.5 mg Ativan for agitation. He was also febrile to 100.3 and his WBC has increased to 14,800 from 12,800. Today the patient's temperature has dropped to 100. He continues to be quite confused. He was found to have gram-negative rods growing in his urine with evidence of UTI on urinalysis. The patient has had one bout of high blood pressure but now is normotensive. Assessment and plan Encephalopathy Patient remains very confused he has history of substance abuse significantly alcohol and cocaine. Today is confused on interview, has waxing and waning confusion. This patient who is chronic alcoholic may have developed Wernicke Korsakoff syndrome. However this is less likely given patient's chronic alcohol use and the acute nature of the patient's confusion that began with his admission here after his seizure. His seizures/head trauma could be the cause of his confusion. Continue to follow psychiatric consult and plans for subsequent care post discharge. For patient's seizure he is currently on valproic acid 1 g twice a day and CORI, was seen by neurology while he was in the ICU. Psychiatry spoke with patient's friend who states that he is "cognitively normal " at baseline, with good memory and orientation. Friend states that patient is always "a bit of a bully and easily aggravated" at baseline. I personally spoke with patient's who stated that after the patient started to have seizures in 2014, he became a different person, more aggressive with one violent episode noted towards his . It appears that some of his behaviors are characterologic at baseline, however he does not appear to be at his cognitive baseline i.e. on and off confused per collateral. Ativan has been ordered for him we stopped this as he has continued to be confused and rechecked an EKG and QTC was normal, so we started Seroquel 12.5 mg every night. We also have gabapentin 300 mg 3 times a day offered. Patient is less agitated and has not been trying to get out of bed so we have DC'd the sitter. We have continued to decrease polypharmacy as much as possible. B12 level is normal. We placed the patient on high dose thiamine for 5 days. Patient is pending placement in [facility] and will go to [facility] tomorrow. Leukocytosis with fever Patient was found to have evidence of UTI UA and his urine is growing Serratia. We started the patient on ceftriaxone which it is sensitive to but had transitioned the patient to Bactrim DS 1 tab daily. Antibiotics were started on March 28. Currently the patient is afebrile and has received suitable treatment. Ischemic right foot Status post stent placement. Ischemia has resolved. 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 We will refer to vascular. Hypertension Normotensive today. He is being continued on metoprolol 50 mg twice daily for his paroxysmal A. fib with SVT which is also helping with his blood pressure. Continue prazosin for urinary retention with added effect of blood pressure control and add norvasc if not controlled. A. fib and coronary artery disease status post CABG Patient on Eliquis 5 mg, clopidogrel 75 mg and atorvastatin 40 mg daily. Will continue with medication with heart healthy diet. Hypomagnesemia Patient was previously found to be hypomagnesemic. Resolved. Arm pain secondary to displaced humerus fracture after fall/seizure Patient currently notes continued pain, is on ofirmev prn. Orthopedist saw the patient in the ICU and states that given his medical condition and mental status as well as stability of the fracture over the past 12 days, he recommends continued conservative nonoperative management with continued splinting. He recommended no use of the left elbow for pushing or pulling or lifting. He recommended repeat x-rays of the left elbow in his splint again to check fracture reduction and potential healing activity. This was done on March 15 and showed no significant interval change to the transcondylar fracture with continued minimal anterior and medial displacement. I spoke with Dr. Hightower's office previously and they suggested that we refer him for follow-up but no extra treatment for now. I spoke with Dr. Anuj Silver regarding the patient's weight bearing tolerance on that left arm and he stated that he should weight- bear as tolerated, limited to a nonpainful level. We should continue to wrap the arm to maintain the splint. These instructions will be given to the STR on discharge. We will refer patient for follow-up with Dr. Hightower. Monocytosis Patient was found to have increased monocytes that dates as far back to 2012. The patient does have a history of Hodgkin's lymphoma, states that he has had non-Hodgkin's lymphoma treated in March of 1999. Patient sees Dr. Carlos Traore in [place] as his oncologist resident services director. WBC level normal. This appears to be a chronic issue so we will refer him to follow up on this outpatient. Urinary retention most likely secondary to BPH On straight cath protocol. Patient was started on doxazosin which should also help with his hypertension. Patient is DNR/DNI Heart healthy diet DVT prophylaxis with Eliquis and Alps Problem List: 1. Humerus distal fracture 2. Monocytosis 3. Urinary retention 4. Polysubstance abuse 5. Atrial fibrillation Pain Ratin Pain Location: distal left humerus Pain Goal: Pain 4 or less Pain Plan: prn Tomorrow's Labs & Rationales: none Martín Devine 04/04/18 1411: Attending MD Review Statement Attending Statement Attending MD Statement: examined this patient, discuss w/resident/PA/METAL CASTER, agreed w/resident/PA/METAL CASTER, reviewed EMR data (avail), discussed with nursing, discussed with case mgmt Attending Assessment/Plan: Pt awaiting placement. pt is rude to everyone including house staff and gets upset when stopped from being rude and sarcastic to everyone.
[2018-04-04] MEDS ORDERED: PLAVIX75 M1 PO (08:05)
[2018-04-04] MEDS ORDERED: CARDURA1 M1 PO (08:05)
[2018-04-04] MEDS ORDERED: QUETIAPINE FUMA25 M1 PO (08:05)
[2018-04-04] MEDS ORDERED: ELIQUIS5 M1 PO (08:05)
[2018-04-04] MEDS ORDERED: METOPROLOL TART50 M1 PO (08:05)
[2018-04-04] MEDS ORDERED: ONE DAILY MULT1 EAC2 PO (08:05)
--- NOTE | 2018-04-04 08:20 | Patient Discharge Instructions ---
Discharge Instructions General Discharge Information You were seen/treated for: SEIZURE RESPIRATORY FAILURE PNEUMONIA DISTAL HUMERUS FRACTURE AFIB PERIPHERAL VASCULAR DISEASE Special Instructions: -PLEASE FOLLOW UP WITH PCP IN ONE WEEK -PLEASE FOLLOW UP WITH NEUROLOGY IN ONE WEEK -PLEASE FOLLOW UP WITH VASCULAR IN ONE WEEK -PLEASE FOLLOW UP WITH ORTHO IN ONE WEEK -PLEASE FOLLOW UP WITH ASSOCIATE ATTORNEY IN ONE WEEK -PLEASE FOLLOW UP WITH CARDIOLOGY IN ONE WEEK Diet Continue normal diet: No Recommended Diet: Heart Healthy Activity Full Activity/No Limits: No Activity Self Limited: Yes Additional ACTIVITY Info: PAIN LIMITED USE OF LEFT ARM Acute Coronary Syndrome Inclusion Criteria At DC or during hospital stay patient has or had the following: ACS DIAGNOSIS No Discharge Core Measures Meds if any: Prescribed or Continued at Discharge Meds if any: NOT Prescribed or Continued at Discharge Congestive Heart Failure Inclusion Criteria At DC or during hospital stay patient has or had the following: CHF DIAGNOSIS No Discharge Core Measures Meds if any: Prescribed or Continued at Discharge Meds if any: NOT Prescribed or Continued at Discharge Cerebrovascular accident Inclusion Criteria At DC or during hospital stay patient has or had the following: CVA/TIA Diagnosis No Discharge Core Measures Meds if any: Prescribed or Continued at Discharge Meds if any: NOT Prescribed or Continued at Discharge Venous thromboembolism Inclusion Criteria VTE Diagnosis No VTE Type NONE VTE Confirmed by (Test) NONE Discharge Core Measures - Per Current guidelines, there needs to be overlap - treatment for the first 5 days of Warfarin therapy. - If discharged on Warfarin prior to 5 days of - overlap therapy, the patient will need to be - assessed for post discharge needs including - *Post discharge parental anticoagulation - *Warfarin and/or parental anticoagulation education - *Follow up date to check INR post discharge At least 5 days overlap therapy as Inpatient No Meds if any: Prescribed or Continued at Discharge Note: Overlap Therapy is Warfarin and Anticoagulant Meds if any: NOT Prescribed or Continued at Discharge
[2018-04-04 14:06] VITALS: BP 144/72
[2018-04-04 22:01] VITALS: BP 120/86
[2018-04-05 07:17] VITALS: BP 120/70
--- NOTE | 2018-04-05 07:22 | PN- Housestaff ---
Kemar ANDERSON,Jade 04/05/18721: Subjective Follow-up For: placement Subjective: No arm pain today, no complaints. Vitals stable. Review of Systems Constitutional: Reports: no symptoms. Objective Last 24 Hrs of Vital Signs/I&O Vital Signs Date Time Temp Pulse Resp B/P B/P Pulse O2 O2 Flow FiO2 Mean Ox Delivery Rate 04/05 1141 98.5 82 22 120/72 04/05 1001 82 120/72 04/05 0717 98.5 77 22 120/70 99 04/04 2201 97.7 73 22 120/86 98 Room Air 04/04 2041 74 120/82 04/04 1406 97.9 66 20 144/72 98 Room Air Intake & Output 04/05 1600 04/05 0804/05 0000 Intake Total 120 30 Output Total 450 475 Balance -330 -445 Intake, IV 30 Intake, Oral 120 Number 0 Bowel Movements Output, Urine 450 475 Physical Exam General Appearance: Alert, Oriented X3, Cooperative, No Acute Distress Skin Temp/Moisture Exam: Warm/Dry HEENT: Atraumatic, PERRLA, EOMI Cardiovascular: Regular Rate, Normal S1, Normal S2, No Murmurs Lungs: Clear to Auscultation, Normal Air Movement Abdomen: Normal Bowel Sounds, Soft, No Tenderness, No Hepatospenomegaly, No Masses Neurological: Normal Speech Extremities: No Clubbing, No Cyanosis, No Edema, Normal Pulses, No Tenderness/ Swelling Vascular: Normal Pulses Current Medications: Current Medications Sig/Louise Start time Last Medication Dose Route Stop Time Status Admin Acetaminophen 1,000 MG Q6P PRN 03/11 1415 AC 04/01 N/A 1 UNIT IV 1806 Apixaban 5 MG BID 03/22 09 AC 04/05 PO 1002 Atorvastatin Calcium 40 MG 1700 03/01 1700 AC 04/04 PO 1620 Bisacodyl 5 MG ONE ONE 04/05 09 DC 04/05 PO 04/05 0901 1107 Calcium Carbonate 500 MG DAILY 04/04 1806 AC 04/05 PO 1002 Clopidogrel Bisulfate 75 MG DAILY 03/14 09 AC 04/05 PO 1001 Divalproex Sodium 1,000 MG BID 03/20 1039 AC 04/05 PO 1001 Docusate Sodium 0 .STK-MED ONE 04/05 0549 DC PO Docusate Sodium 0 .STK-MED ONE 04/04 1648 DC PO Docusate Sodium 100 MG DAILY NEEDED 03/02 0930 AC 04/05 PO 0549 Doxazosin Mesylate 1 MG AT BEDTIME 04/01 2100 AC 04/04 PO 204 Gabapentin 300 MG Q8P PRN 03/20 1715 AC 03/23 PO 202 Magnesium Chloride 64 MG BID 03/24 2100 AC 04/05 PO 1002 Melatonin 5 MG AT BEDTIME 03/27 2100 AC 04/04 PO 204 Metoprolol Tartrate 50 MG BID 03/20 2100 AC 04/05 PO 1001 Multivitamins 1 TAB DAILY 03/29 1043 AC 04/05 PO 1001 Polyethylene Glycol 17 GM DAILY PRN 03/02 0930 AC 04/04 PO 1812 Quetiapine Fumarate 12.5 MG QPM 03/31 2100 AC 04/04 PO 2041 Senna 187 MG AT BEDTIME 03/22 2100 AC 04/04 PO 2040 Vitamin A/Vitamin D 1 YOKO BID 03/12 1515 AC 04/05 TOP 1003 Assessment/Plan Assessment: 67 y/o M with PMH of chronic seizure disorder on valproate, CAD s/p CABG and bovine aortic valve replacement in 2013, Hodgkins lymphoma, HTN and HLD that was brought to the ED after he was found to be unresponsive. Patient has been in the hospital for the past 1 month initially admitted in the ICU and required intubation. Yesterday, the patient required 2 doses of 0.5 mg Ativan for agitation. He was also febrile to 100.3 and his WBC has increased to 14,800 from 12,800. Today the patient's temperature has dropped to 100. He continues to be quite confused. He was found to have gram-negative rods growing in his urine with evidence of UTI on urinalysis. The patient has had one bout of high blood pressure but now is normotensive. Assessment and plan Encephalopathy Patient remains very confused he has history of substance abuse significantly alcohol and cocaine. Today is confused on interview, has waxing and waning confusion. This patient who is chronic alcoholic may have developed Wernicke Korsakoff syndrome. However this is less likely given patient's chronic alcohol use and the acute nature of the patient's confusion that began with his admission here after his seizure. His seizures/head trauma could be the cause of his confusion. Continue to follow psychiatric consult and plans for subsequent care post discharge. For patient's seizure he is currently on valproic acid 1 g twice a day and CORI, was seen by neurology while he was in the ICU. Psychiatry spoke with patient's friend who states that he is "cognitively normal " at baseline, with good memory and orientation. Friend states that patient is always "a bit of a bully and easily aggravated" at baseline. I personally spoke with patient's who stated that after the patient started to have seizures in 2014, he became a different person, more aggressive with one violent episode noted towards his . It appears that some of his behaviors are characterologic at baseline, however he does not appear to be at his cognitive baseline i.e. on and off confused per collateral. Ativan has been ordered for him we stopped this as he has continued to be confused and rechecked an EKG and QTC was normal, so we started Seroquel 12.5 mg every night. We also have gabapentin 300 mg 3 times a day offered. Patient is less agitated and has not been trying to get out of bed so we have DC'd the sitter. We have continued to decrease polypharmacy as much as possible. B12 level is normal. We placed the patient on high dose thiamine for 5 days. Patient is pending placement in [facility] and will go to [facility] today. Leukocytosis with fever Patient was found to have evidence of UTI UA and his urine is growing Serratia. We started the patient on ceftriaxone which it is sensitive to but had transitioned the patient to Bactrim DS 1 tab daily. Antibiotics were started on March 28. Currently the patient is afebrile and has received suitable treatment. Ischemic right foot Status post stent placement. Ischemia has resolved. 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 We will refer to vascular. Hypertension Normotensive today. He is being continued on metoprolol 50 mg twice daily for his paroxysmal A. fib with SVT which is also helping with his blood pressure. Continue prazosin for urinary retention with added effect of blood pressure control and add norvasc if not controlled. A. fib and coronary artery disease status post CABG Patient on Eliquis 5 mg, clopidogrel 75 mg and atorvastatin 40 mg daily. Will continue with medication with heart healthy diet. Hypomagnesemia Patient was previously found to be hypomagnesemic. Resolved. Arm pain secondary to displaced humerus fracture after fall/seizure Patient currently notes continued pain, is on ofirmev prn. Orthopedist saw the patient in the ICU and states that given his medical condition and mental status as well as stability of the fracture over the past 12 days, he recommends continued conservative nonoperative management with continued splinting. He recommended no use of the left elbow for pushing or pulling or lifting. He recommended repeat x-rays of the left elbow in his splint again to check fracture reduction and potential healing activity. This was done on March 15 and showed no significant interval change to the transcondylar fracture with continued minimal anterior and medial displacement. I spoke with Dr. Hightower's office previously and they suggested that we refer him for follow-up but no extra treatment for now. I spoke with Dr. Anuj Silver regarding the patient's weight bearing tolerance on that left arm and he stated that he should weight- bear as tolerated, limited to a nonpainful level. We should continue to wrap the arm to maintain the splint. These instructions will be given to the STR on discharge. We will refer patient for follow-up with Dr. Hightower. Monocytosis Patient was found to have increased monocytes that dates as far back to 2012. The patient does have a history of Hodgkin's lymphoma, states that he has had non-Hodgkin's lymphoma treated in March of 1999. Patient sees Dr. Carlos Traore in [place] as his oncologist transcription manager. WBC level normal. This appears to be a chronic issue so we will refer him to follow up on this outpatient. Urinary retention most likely secondary to BPH On straight cath protocol. Patient was started on doxazosin which should also help with his hypertension. Patient is DNR/DNI Heart healthy diet DVT prophylaxis with Eliquis and Alps Problem List: 1. Monocytosis 2. Humerus distal fracture Pain Ratin Pain Location: NA Pain Goal: Remain pain free Pain Plan: NA Tomorrow's Labs & Rationales: Martín Couch 04/05/18 1459: Attending MD Review Statement Attending Statement Attending MD Statement: discuss w/resident/PA/ANGER CONTROL COUNSELOR, agreed w/resident/PA/ANGER CONTROL COUNSELOR, reviewed EMR data (avail), discussed with case mgmt Attending Assessment/Plan: Pt being dced to STR today . Please see dc summary for more details.
[2018-04-05 11:41] VITALS: BP 120/72
== END 2018-04-05 13:12 | DRG 166 ==
LOC: ERH 08:31 → CRI 13:13 → ERHI 13:13 → 1NO 13:13 → 2NB 13:13 → ENRESERV 14:05 → CRI 15:54 → ENTRNSPT 03-13 11:43 → EDTRNSPTSTS 03-13 11:54 → EDTRNSPT 03-13 11:54 → CMPTRNSPT 03-13 11:56 → ENTRNSPT 03-20 20:06 → EDTRNSPT 03-20 20:50 → EDTRNSPTSTS 03-20 20:50 → 1NO 03-20 21:02 → CMPTRNSPT 03-20 21:12 → 1NO 03-21 07:42 → 2NB 03-25 23:05
PROVIDERS: Emergency Medicine; Internal Medicine; Internal Medicine Interventional Cardiology; Internal Medicine Pulmonary Disease; Physical Medicine & Rehabilitation Pain Medicine; Preventive Medicine Public Health & General Preventive Medicine; Student in an Organized Health Care Education/Training Program
PROC: 5A1955Z Respiratory Ventilation, Greater than 96 Consecutive Hours (ICD-10-PCS; principal; 2018-02-26)
PROC: 0BH17EZ Insertion of Endotracheal Airway into Trachea, Via Natural or Artificial Opening (ICD-10-PCS; 2018-02-26)
PROC: 02HV33Z Insertion of Infusion Device into Superior Vena Cava, Percutaneous Approach (ICD-10-PCS; 2018-03-04)
PROC: 047L3FZ Dilation of Left Femoral Artery with Three Intraluminal Devices, Percutaneous Approach (ICD-10-PCS; 2018-03-13)
DX: J96.01 Acute respiratory failure with hypoxia (principal); J69.0 Pneumonitis due to inhalation of food and vomit; G92 Toxic encephalopathy; J15.211 Pneumonia due to Methicillin susceptible Staphylococcus aureus; S42.472A Displaced transcondylar fracture of left humerus, initial encounter for closed fracture; N17.9 Acute kidney failure, unspecified; K56.7 Ileus, unspecified; I74.3 Embolism and thrombosis of arteries of the lower extremities; F05 Delirium due to known physiological condition; F10.259 Alcohol dependence with alcohol-induced psychotic disorder, unspecified; I47.1 Supraventricular tachycardia; E87.2 Acidosis; N39.0 Urinary tract infection, site not specified; S02.2XXA Fracture of nasal bones, initial encounter for closed fracture; G93.0 Cerebral cysts; G40.901 Epilepsy, unspecified, not intractable, with status epilepticus; F14.10 Cocaine abuse, uncomplicated; I25.10 Atherosclerotic heart disease of native coronary artery without angina pectoris; Z95.1 Presence of aortocoronary bypass graft; Z95.3 Presence of xenogenic heart valve; I10 Essential (primary) hypertension; Z85.71 Personal history of Hodgkin lymphoma; E78.5 Hyperlipidemia, unspecified; Z98.1 Arthrodesis status; M48.02 Spinal stenosis, cervical region; I48.2 Chronic atrial fibrillation; F12.10 Cannabis abuse, uncomplicated; Z66 Do not resuscitate; I49.3 Ventricular premature depolarization; I73.9 Peripheral vascular disease, unspecified; D69.6 Thrombocytopenia, unspecified; R45.1 Restlessness and agitation; B96.20 Unspecified Escherichia coli [E. coli] as the cause of diseases classified elsewhere; B96.89 Other specified bacterial agents as the cause of diseases classified elsewhere; J96.02 Acute respiratory failure with hypercapnia; T39.95XA Adverse effect of unspecified nonopioid analgesic, antipyretic and antirheumatic, initial encounter; N40.1 Benign prostatic hyperplasia with lower urinary tract symptoms; R33.8 Other retention of urine
CPT/HCPCS: 1NP; 1NSP; 2NBP; CCU; 36415; 36592; 71045; 73060-LT; 73070-LT; 73080-LT; 73090-LT; 74018; 74177; 76000; 80307; 81001; 82436; 87040; 87070; 87086; 87147; 92526-GN; 93005; 93010; 93306; 94799; 95816; 96374; 96375; 96376; 97110-GO; 97112-GO; 97116-GO; 97162-GP; 97165-GO; 97530-GO; 99291; C1725; C1760; C1769; C1875; C1876; G0480; J0131; J0690; J0696; J1170; J1200; J1630; J1644; J1650; J1940; J1953; J2001; J2060; J2310; J2720; J2997; J3010; J3490; J7040; J7042; J7060; Q9967